=== PATIENT | female | born 1955 | race Caucasian/White ===

== ENCOUNTER 2023-03-07 16:23 | Outpatient (CLI) | payer MEDICARE, MEDICAID, SELFPAY | END 2023-03-07 16:24 | disposition home or self-care (01) | LOC: AMB 03-24 15:39 | PROVIDERS: PCP Family Medicine; Visit Provider Emergency Medicine | DX: F10.129 Alcohol abuse with intoxication, unspecified (principal) | CPT/HCPCS: A0425; A0429 ==

== ENCOUNTER 2023-07-05 12:31 | Outpatient (CLI) | payer MEDICARE, MEDICAID, SELFPAY ==
--- OUTSIDE RECORDS SUMMARY | 2023-07-07 15:32 | XMS_ITS | Clinical Summary ---
Author Name Unknown Organization [place] Address [address] [facility] [place] [address] Care Team Providers Care Human Resources Compensation Analyst Name Role Phone Alek Jones MD Unavailable [phone] Neelima Shukla DO Primary Care Provider [phone] Brayden Du MD Unavailable Allergies Active Allergy Reactions Criticality Noted Date Comments Propoxyphene Napsylate 09/19/2012 Propoxyphene 09/02/2014 Other reaction(s): Seizures Medications Medication Sig Dispensed Refills Start Date End Date Status Multiple Vitamins-Minerals (CENTRUM SILVER PO) Take 1 tablet by mouth daily Active gabapentin (NEURONTIN) 600 MG tabletIndications:S eizure disorder (H),Chronic pain disorder,Adjustment disorder with mixed anxiety and depressed mood Take 600 mg by mouth 3 times daily 60 tablet 0 12/31/2014 Active gabapentin (NEURONTIN) 800 MG tabletIndications:S eizure disorder (H),Chronic pain disorder,Adjustment disorder with mixed anxiety and depressed mood Take 1 tablet (800 mg) by mouth At Bedtime 30 tablet 0 12/31/2014 Active SUMAtriptan (IMITREX) 100 MG tabletIndications:H istory of migraine TAKE 1 TABLET BY MOUTH AT ONSET OF HEADACHE Dr Juan David Garcia DO, neurologist 9 tablet 0 12/31/2014 Active rOPINIRole (REQUIP) 0.5 MG tablet Take 1.5 mg by mouth daily 05/08/2019 Active VITAMIN D PO Take 1,000 Units by mouth daily Active Cyanocobalamin (VITAMIN B-12 PO) Take 1,000 mcg by mouth daily Active phenytoin (DILANTIN) 100 MG capsuleIndications: History of seizures Take 100 mg by mouth 2 times daily Take 1 tablet by mouth in AM, 1 in afternoon at 1700 10/23/2020 Active propranolol ER (INDERAL LA) 80 MG 24 hr capsule Take 80 mg by mouth daily Active nicotine (COMMIT) 2 MG lozengeIndications: Nicotine dependence with nicotine-induced disorder, unspecified nicotine product type Place 1 lozenge (2 mg) inside cheek every hour as needed for smoking cessation 10/28/2020 Active calcium carbonate (TUMS) 500 MG chewable tablet Take 1 tablet (500 mg) by mouth daily 10/28/2020 Active polyethylene glycol (MIRALAX) 17 GM/Dose powderIndications:C onstipation, unspecified constipation type Take 17 g by mouth daily 510 g 10/28/2020 Active Additional Information Patient taking differently:17 g OralDAILY PRN, Reported on 11/03/2020 acetaminophen (TYLENOL) 500 MG tabletIndications:C losed trimalleolar fracture of left ankle, initial encounter Take 2 tablets (1,000 mg) by mouth 3 times daily 10/28/2020 Active rotigotine (NEUPRO) 2 MG/24HR [address] 1 patch onto the skin daily 02/16/2021 Active hydrocortisone, Perianal, (PROCTOZONE-HC) 2.5 % creamIndications:Ex ternal hemorrhoids Place rectally 2 times daily as needed 30 g 1 02/16/2021 Active cyclobenzaprine (FLEXERIL) 5 MG tabletIndications:R ib pain on left side,Thoracic back sprain, initial encounter Take 1-2 tablets (5-10 mg) by mouth 3 times daily as needed for muscle spasms 20 tablet 03/09/2021 Active sertraline (ZOLOFT) 50 MG tabletIndications:G AD (generalized anxiety disorder) Take 1 tablet (50 mg) by mouth daily 90 tablet 06/30/2021 Active cephALEXin (KEFLEX) 500 MG capsule Take 1 capsule (500 mg) by mouth 4 times daily 28 capsule 06/06/2023 Active Active Problems Problem Noted Date Diagnosed [...] Provided: Reviewed chart for advance care plan. Leo Mueller has no plan or code status on file. Discussed available resources and provided with information. Confirmed code status reflects current choices pending further ACP discussions. Confirmed/documented legally designated decision maker(s). 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 Surg in 2000 Last seizure 2009 Pt on dilantin and sees neurology at [facility] History of migraine 09/19/2012 Resolved Problems [...] disorder (H) (Primary Dx) 06/23/2023 Medical Correspondence [facility] [address] [place] [address] Scan, Non-Provider 06/11/2023 7:17 PM CDT - 06/12/2023 11:01 AM CDT Emergency [facility] Emergency Dept [address] [place] [address] Kaushal Mao MD Amdahl, John, MD Goodwin, Shaun M, MD Alcoholic intoxication without complication (H24) Discharge Disposition: Home or Self Care 06/11/2023 Travel 06/08/2023 Telephone [facility] Emergency Dept [address] [place] [address] Adi Edmond RN Results 06/06/2023 10:35 AM CDT - 06/06/2023 7:56 PM CDT Emergency [facility] Emergency Dept [address] [place] [address] Kimmy Cisneros, Fall, initial encounter; Hip pain, [...] Sex Assigned at Female 02/28/2021 1:24 PM LIGHTING EQUIPMENT OPERATOR Gender Identity Female 02/28/2021 1:23 PM LIGHTING EQUIPMENT OPERATOR Sexual Orientation Straight 02/28/2021 1: 20 PM LIGHTING EQUIPMENT OPERATOR Last Filed Vital Signs Vital Sign Reading Time Taken Comments Blood Pressure 128/67 06/12/2023 10:29 AM CDT Pulse 126 06/12/2023 10:15 AM CDT Temperature 36.7 ??C (98 ??F) 06/11/2023 8:37 PM CDT Respiratory Rate 15 06/11/2023 7:45 PM CDT Oxygen Saturation 96% 06/12/2023 10:31 AM CDT Inhaled Oxygen Concentration - - Weight 72.6 kg (160 lb) 03/07/2023 5:06 PM LIGHTING EQUIPMENT OPERATOR Height 162.6 cm (5' 4) 03/07/2023 5:06 PM LIGHTING EQUIPMENT OPERATOR Body Mass Index 27.46 03/07/2023 5:06 PM LIGHTING EQUIPMENT OPERATOR Plan of Treatment Health Maintenance Due [...] 12/09/2017, 06/26 (Declined), 06/01/2011 PHQ-9 08/16/2021 02/16/2021, 10/2020, 04/04/2019, Additional history exists NICOTINE/TOBACCO CESSATION [...] this topic Medical Devices Implanted Type Area Sales Account Specialist Device Identifier Shelf Expiration Date Model / Serial / Lot Imp Scr Syn Lcp Dist 2.7x12mm Self Tap Ss 202.212 - [id number] Implanted:Qty: 1 on 10/24/2020 by Quentin Pritchett MD at [facility] Metallic Hardware/An chor Left: Ankle SYNTHES-STRATEC 202.212 / / [id number] Imp Scr Syn Lcp Dist 2.7x14mm Self Tap Ss 202.214 - [id number] Implanted:Qty: 1 on 10/24/2020 by Quentin Pritchett MD at [facility] Metallic Hardware/An chor Left: Ankle SYNTHES-STRATEC 202.214 / / [id number] Imp Scr Syn Lcp Dist 2.7x16mm Self Tap Ss 202.216 - [id number] Implanted:Qty: 3 on 10/24/2020 by Quentin Pritchett MD at [facility] Metallic Hardware/An chor Left: Ankle SYNTHES-STRATEC 202.216 / / [id number] 21 Imp Scr Syn Cortex 2.7x32mm Self Tap Ss 202.832 - [id number] Implanted:Qty: 1 on 10/24/2020 by Quentin Pritchett MD at [facility] Metallic Hardware/An chor Left: Ankle SYNTHES-STRATEC 202.832 / / [id number] L2021 Imp Scr Syn 3.5x12mm Locking W/Stardrive Ss 212.102 - [id number] Implanted:Qty: 2 on 10/24/2020 by Quentin Pritchett MD at [facility] Metallic Hardware/An chor Left: Ankle SYNTHES-STRATEC 212.102 / / [id number] L2021 Imp Scr Syn Cortex 3.5x16mm Self Tap Ss 204.816 - [id number] Implanted:Qty: 1 on 10/24/2020 by Quentin Pritchett MD at [facility] Metallic Hardware/An chor Left: Ankle SYNTHES-STRATEC 204.816 / / [id number] L2021 Imp Scr Syn Cortex 3.5x28mm Self Tap Ss 204.828 - [id number] Implanted:Qty: 1 on 10/24/2020 by Quentin Pritchett MD at [facility] Metallic Hardware/An chor Left: Ankle SYNTHES-STRATEC 204.828 / / [id number] L2021 Imp Scr Syn Cortex 3.5x38mm Self Tap Ss 204.838 - [id number] Implanted:Qty: 1 on 10/24/2020 by Quentin Pritchett MD at [facility] Metallic Hardware/An chor Left: Ankle SYNTHES-STRATEC 204.838 / / [id number] L2021 Imp Scr Syn Can 4.0x40mm Long Thrd Ss 207.740 - [id number] Implanted:Qty: 1 on 10/24/2020 by Quentin Pritchett MD at [facility] Metallic Hardware/An chor Left: Ankle SYNTHES-STRATEC 207.740 / / [id number] L2021 Imp Wire Margarita 0.045x4 78.2020 - [id number] Implanted:Qty: 1 on 10/24/2020 by Quentin Pritchett MD at [facility] Wire Left: Ankle G SOURCE 78.202 / / 4.0mm Ti Locking Screww/T25 Implanted:Qty: 1 on 01/16/2014 by Bayron Can MD at [facility] Left: Humerus SYNTHES 08/27/2019 04.005.4 44S / / [id number] 4.5mm Ti Multiloc Screw 42mm Implanted:Qty: 1 on 01/16/2014 by Bayron Can MD at [facility] Left: Humerus SYNTHES 03/28/2022 04.019.0 42S / / [id number] 4.5mm Ti Mulitloc Screw 38mm Implanted:Qty: 1 on 01/16/2014 by Bayron Can MD at [facility] Left: Humerus SYNTHES 02/25/2022 04.019.0 38S / / [id number] 4.0mm Ti Locking Screw 24mm Implanted:Qty: 1 on 01/16/2014 by Bayron Can MD at [facility] Left: Humerus SYNTHES 08/26/2022 04.005.4 14S / / [id number] 4.0mm Ti Locking Screw 26mm Implanted:Qty: 1 on 01/16/2014 by Bayron Can MD at [facility] Left: Humerus SYNTHES 12/26/2021 04.005.4 16S / / [id number] Multiloc End Cap Implanted:Qty: 1 on 01/16/2014 by Bayron Can MD at [facility] Left: Humerus SYNTHES 11/26/2022 04.019.0 00S / / [id number] 4.5mmti Multiloc Screw 38mm Implanted:Qty: 1 on 01/16/2014 by Bayron Can MD at [facility] Left: Humerus SYNTHES 02/25/2023 04.019.0 38S / / [id number] 3.5mm Lcp Hook Plate Implanted:Qty: 1 on 10/24/2020 by Quentin Pritchett MD at [facility] Left: Ankle SYNTHES 02.113.1 03S / / [id number] 2.7mm/3.5mm Lcp Posterolateral Distal Fibula Plates Implanted:Qty: 1 on 10/24/2020 by Quentin Pritchett MD at [facility] Left: Ankle SYNTHES 02.112.1 09 / / [id number] 21 Procedures Procedure Name Priority Date/Time Associated [...] METABOLIC PANEL STAT 06/06/2023 11:04 AM CDT LIPID PANEL (BFP) Routine 02/24/2021 3:3 5 PM LIGHTING EQUIPMENT OPERATOR Mixed hyperlipidemia MA DIAGNOSTIC BILATERAL W/ JESSE Routine 12/09/2017 THINPREP PAP RFLX HPV MRNA E6/E7 ([facility]) Routine 03/04/2017 3:13 PM LIGHTING EQUIPMENT OPERATOR Encounter for gynecological examination without abnormal finding HEPATITIS C ANTIBODY Routine 04/07/2016 3:32 PM LIGHTING EQUIPMENT OPERATOR Need for hepatitis C screening test DRUG ABUSE SCREEN 8 URINE (UR) STAT 01/26/2006 2:35 PM LIGHTING EQUIPMENT OPERATOR from Last 3 Months or Most Recently Relevant to Health Maintenance Results * (ABNORMAL) CBC with platelets and [...] Mao MD LAB - BLOOD ORDE ALAN [facility] Organization Address City/State/ZIP Co de Phone Number [facility] LABORAT[facility] [address] Lab (1st floor, no room number) [place] [address], [facility] * (ABNORMAL) Alcohol level blood (06/11/2023 8:53 PM CDT) Only the most recent of2 resultswithin the time period is included. Alcohol ethyl 0.35(HH) <=0.01 g/dL 06/11/2023 9:38 PM CDT [facility] LAB[facility] Blood STRUCTURE OF RIGHT HAND / Unknown Venipuncture / Unknown 06/11/2023 8:53 PM CDT 06/11/2023 9:00 PM CDT Kaushal Mao MD LAB - BLOOD YINKA PHILLIPS [facility] [address] Lab (1st floor, no room number) [place] [address] * (ABNORMAL) Basic metabolic [...] - 5.3 mmol/L 06/11/2023 9:51 PM CDT [facility] LAB[facility] Chloride 96(L) 98 - 107 mmol/L 06/11/2023 9:51 PM CDT [facility] Carbon Dioxide (CO2) 23 22 - 29 mmol/L 06/11/2023 9:51 PM CDT [facility] Anion Gap 22(H) 7 - 15 mmol/L 06/11/2023 9:51 PM CDT [facility] Urea Nitrogen 4.3(L) 8.0 - 23.0 mg/dL 06/11/2023 9:51 PM CDT [facility] Creatinine 0.41(L) 0.51 - 0.95 mg/dL 06/11/2023 9:51 PM CDT [facility] GFR Estimate >90 >60 mL/min/1. 73m2 06/11/2023 9:51 PM CDT [facility] Calcium 8.2(L) 8.8 - 10.2 mg/dL 06/11/2023 9:51 PM CDT LABORATORY Glucose 101(H) 70 - 99 mg/dL 06/11/2023 9:51 PM CDT LABORATORY Blood STRUCTURE OF RIGHT HAND / Unknown Venipuncture / Unknown 06/11/2023 8:53 PM CDT 06/11/2023 9:00 PM CDT Kaushal Mao MD LAB - BLOOD YINKA PHILLIPS LABORATORY [facility] [address] Lab (1st floor, no room number) [place] [address], [facility] * (ABNORMAL) UA with [...] Trace(A) Negative mg/dL 06/06/2023 1:53 PM CDT LABORATORY Specific [place] Urine 1.020 1.003 - 1.035 06/06/2023 1:53 PM CDT LABORATORY Blood Urine Small(A) Negative 06/06/2023 1:53 PM CDT LABORATORY pH Urine 5.0 5.0 - 7.0 06/06/2023 1:53 PM CDT LABORATORY Protein Albumin Urine 30(A) Negative mg/dL 06/06/2023 1:53 PM CDT LABORATORY Urobilinogen Urine Normal Normal, 2.0 mg/dL 06/06/2023 1:53 PM CDT LABORATORY Nitrite Urine Negative Negative 06/06/2023 1:53 PM CDT LABORATORY Leukocyte Esterase Urine Moderate(A) Negative 06/06/2023 [...] PM CDT 06/06/2023 1:42 PM CDT Narrative [facility] LAB[facility]ATORY - 06/06/2023 1:53 PM CDT Urine Culture ordered based on laboratory criteria Kimmy Cisneros DO LAB - URINE ORDERABL ES LABORATORY [facility] Lab [address] [facility] Lab (1st floor, no room number) [place] [address] * (ABNORMAL) Urine Culture (06/06/2023 1:37 [...] coli Cefazolin JANICE <=4 ug/mL: Susceptible Comment:Cefazolin RI C breakpoints are for the treatment of [...] - MICRO GENERAL ORDERABLES UU IDD LABORATORY [facility] Inf. Diseases Diag. Lab [address] [place] [address] * XR Pelvis w Hip Left 1 View (06/06/2023 1:01 PM CDT) Anatomical Region Laterality Modality Abdomen/Pelvis Left Digital Radiogra phy Impressions 06/06/2023 1:16 PM CDT IMPRESSION: No acute fracture or malalignment. Mild degenerative changes throughout the pelvis and lower lumbar spine. Osteopenia. JAZIEL SANDOVAL MD SYSTEM ID: ??[id number] Narrative 06/06/2023 1:16 PM CDT XR PELVIS [...] spine. Osteopenia. JAZIEL SANDOVAL MD SYSTEM ID: [id number] Kimmy Cisneros DO IMG DIAGNOSTIC IMAGI NG [...] aneurysm coiling. NAIMA OCAMPO MD SYSTEM ID: ??[id number] Narrative 06/06/2023 12:41 PM CDT EXAM: CT HEAD W/O CONTRAST ??06/06/2023 12:27 PM HISTORY: ??fall ?? COMPARISON: ??Head CT 07/08/2015 TECHNIQUE: Using multidetector thin collimation helical acquisition technique, axial, coronal and sagittal CT images from the skull base to the vertex were obtained without intravenous contrast. Inspector Eyeglass Frames (topogram) image(s) also obtained and reviewed. Dose [...] the vertex were obtained without intravenous contrast. Inspector Eyeglass Frames (topogram) image(s) also obtained and reviewed. Dose [...] aneurysm coiling. NAIMA OCAMPO MD SYSTEM ID: [id number] iKmmy Cisneros DO IMG CT ORDERABLES * XR [...] ACDF. DIPESH BLACK MD Kimmy Cisneros DO G DIAGNOSTIC IMAGI NG ORDERABLES * US Lower [...] thrombosis. EVER PEDRO MD Kimmy Cisneros DO IMAnibal US ORDERABLES * EKG 12-lead, tracing only (06/06/2023 11:14 AM CDT) Systolic Blood Pressure mmHg RADIOLOGY RESULTS Diastolic Blood Pressure mmHg RADIOLOGY RESULTS Ventricular Rate 131 BPM RAD IOLOGY RESULTS Atrial Rate 133 BPM RADIOLOG Y RESULTS MT Interval 112 ms RADIOLOG Y RESULTS QRS Duration 72 ms RADIOLO GY RESULTS QT 408 ms RADIOLOGY RESULTS QTc 602 ms RADIOLOGY RESULTS P [place] 27 degrees RADIOLOGY RESULTS R AXIS 70 degrees RADIOLOGY RESULTS T [place] 31 degrees RADIOLOGY RESULTS Interpretation ECG Sinus [...] Confirmed by - EMERGENCY ROOM, PHYSICIAN ([id number]), school photograph editor Aureliano Castellanos ([id number]) on 06/06/2023 3:26:20 PM RADIOLOGY RESULTS 06/06/2023 11:1 4 AM CDT 06/06/2023 3:26 PM CDT Kimmy Cisneros DO ECG ORDERABLES RADIOLOGY RESULTS * Extra Green Top ([place] Heparin) ON ICE (06/06/2023 11:04 AM CDT) Hold Specimen [facility] 06/06/2023 12:32 PM CDT [facility] LABORATORY Blood VENOUS LINE / Unknown Venipuncture / Unknown 06/06/2023 11:04 AM CDT 06/06/2023 11:17 AM CDT Kimmy Cisneros DO LAB - BLOOD ORDERABL ES Performing Organization Address City/[facility]/ZIP Co de Phone Number [facility] Lab [address] Lab (1st floor, no room number) [address] * Extra Blood Culture Bottle (06/06/2023 11:04 AM CDT) Hold Specimen [facility] 06/06/2023 12:32 PM CDT [facility] LABORATORY Blood VENOUS LINE / Unknown Venipuncture / Unknown 06/06/2023 11:04 AM CDT 06/06/2023 11:17 AM CDT Kimmy Cisneros DO LAB - BLOOD ORDERABL ES Performing Organization Address [facility]/ZIP Co de Phone Number [facility] Lab [address] Lab (1st floor, no room number) [address] [place] [address] * Extra Red Top Tube (06/06/2023 11:04 AM CDT) Hold Specimen [facility] 06/06/2023 12:32 PM CDT RH LAB[facility]ATORY Blood VENOUS LINE / Unknown Venipuncture / Unknown 06/06/2023 11:04 AM CDT 06/06/2023 11:17 AM CDT Kimmy Cisneros DO LAB - BLOOD ORDERABL ES [facility] [address] Lab (1st floor, no room number) [place] [address] * Extra Blue Top Tube (06/06/2023 11:04 AM CDT) Hold Specimen [facility] 06/06/2023 12:32 PM CDT LABORATORY Blood VENOUS LINE / Unknown Venipuncture / Unknown 06/06/2023 11:04 AM CDT 06/06/2023 11:17 AM CDT Kimmy Cisneros DO LAB - BLOOD ORDERABL ES LABORATORY [facility] [address] Lab (1st floor, no room number) [place] [address] * Troponin T, High Sensitivity (06/06/2023 11:04 AM CDT) [facility] Troponin T, High Sensitivity 12 <=14 ng/L [...] DO LAB - BLOOD ORDERABL ES LABORATORY [facility] [address] Lab (1st floor, no room number) [place] [id number] * Nt probnp inpatient (BNP) (06/06/2023 11:04 AM CDT) [facility] N terminal Pro BNP Inpatient 64 0 [...] - BLOOD ORDERABL ES Performing Organization Address City/[facility]/ZIP Co de Phone Number [facility] Lab [address] Lab (1st floor, no room number) [place] [id number] * Magnesium (06/06/2023 11:04 AM CDT) [facility] Magnesium 1.8 1.7 - 2.3 mg/dL 06/06/2023 12:07 PM CDT LABORATORY Blood VENOUS LINE / Unknown Venipuncture / Unknown 06/06/2023 11:04 AM CDT 06/06/2023 11:17 AM CDT Kimmy Cisneros LAB - BLOOD ORDERABL ES [facility] [address] Lab (1st floor, no room number) [place] [phone] * (ABNORMAL) Comprehensive metabolic [...] - 29 mmol/L 06/06/2023 12:07 PM CDT LABORATORY Anion Gap 17(H) 7 - 15 mmol/L 06/06/2023 12:07 PM CDT LABORATORY Urea Nitrogen 3.6(L) 8.0 - 23.0 mg/dL 06/06/2023 12:07 PM CDT LABORATORY Creatinine 0.47(L) 0.51 - 0.95 mg/dL 06/06/2023 12:07 PM CDT LABORATORY GFR Estimate >90 >60 mL/min/1. 73m2 06/06/2023 12:07 PM CDT LABORATORY Calcium 8.2(L) 8.8 - 10.2 mg/dL 06/06/2023 12:07 PM CDT LABORATORY Chloride 104 98 - 107 mmol/L 06/06/2023 12:07 PM CDT LABORATORY Glucose 109(H) 70 - 99 mg/dL 06/06/2023 12:07 PM CDT LABORATORY Alkaline Phosphatase 218(H) 40 - 150 U/L 06/06/2023 12:07 PM CDT LABORATORY Comment:Reference intervals [...] - 45 U/L 06/06/2023 12:07 PM CDT LABORATORY Comment:Reference intervals [...] CDT 06/06/2023 11:17 AM CDT Kimmy Cisneros LAB - BLOOD ORDERABL ES Performing Organization Address City/[facility]/ZIP Co de Phone Number [facility] Lab [address] Lab (1st floor, no room number) [address] * CK total (06/06/2023 11:04 AM CDT) CK 83 26 - 192 U/L 06/06/2023 1:07 PM CDT RH LABORATORY Blood VENOUS LINE / Unknown Venipuncture / Unknown 06/06/2023 11:04 AM CDT 06/06/2023 11:17 AM CDT Kimmy Cisneros LAB - BLOOD ORDERABL ES [facility] [address] Lab (1st floor, no room number) [address] * (ABNORMAL) Lipid Panel (BFP) (02/24/2021 3:35 PM LIGHTING EQUIPMENT OPERATOR) Cholesterol 307(A) 0 - 199 mg/dL BFP INTERNAL Triglycerides 369(A) 0 - 149 mg/dL B[facility] INTERNAL HDL Cholesterol 108 40 - 150 mg/dL [facility] INTERNAL LDL Cholesterol Direct 125 0 - 130 mg/dL [facility] INTERNAL Cholesterol/HDL Ratio 3 0 - 5 BFP INTERNAL Blood 02/24/2021 3:35 PM LIGHTING EQUIPMENT OPERATOR Alek Jones MD LAB - [facility] BLOOD LABS BFP INTERNAL * MA Diagnostic Bilateral w/Jesse (12/09/2017) MAMMOGRAM Anatomical Region Laterality Modality Breast Bilateral Other Narrative 12/09/2017 [facility] Phone: [phone] * Fax: [phone] [address] [place] [address] Age: 62 Y Dept No.: [id number] LEO MUELLER : 1955 Chart # Gender: F Req. Phys: Alek Jones MD Clinic MRN: Clinic: [facility] Acc#: [id number] Exam: MAMMOGRAM SCREENING JESSE BILATERAL Exam Date: 12/09/2017 SCREENING MAMMOGRAM, BILATERAL, DIGITAL with DIGITAL BREAST TOMOSYNTHESIS, w/CAD - 12/09/2017 3:00 PM. COMPARISON: 06/01/11, 11/27/09 CLINICAL HISTORY: No current breast concerns. Patient reports prior benign biopsies. BREAST DENSITY: Heterogeneously dense, which may obscure small masses. FINDINGS: No concerning findings. Biopsy markers in the right breast. IMPRESSION: BI-RADS CATEGORY: 1 - NEGATIVE. RECOMMENDED FOLLOW-UP: Annual Mammography. Exam results letter mailed to patient. Performed by: NANCY Transcribed By: TISHA on: 12/14/2017 1:56 PM CDT Finalized By: RHINA ZAMUDIO M.D. on: 12/14/2017 1:56 PM CDT Dictated By: RHINA ZAMUDIO M.D. Signed by: DORA Thank You for choosing [facility] Page 1 of 1 Patient Reported IMG MAMMOGRAPHY YINKA PHILLIPS * ThinPrep Pap and HPV (mRNA E6/E7){HPV-REFLEX} ([facility]) (03/04/2017 3:13 PM LIGHTING EQUIPMENT OPERATOR) Clinical History None given [facility] LMP SEE COMMENT [facility] Comment:OVER 8YRS AGO Last Pap Diagnosis 120,817 Q [facility] Prev Bx Dx NONE GIVEN [facility] Source Cervix [facility] Statement of Adequacy SEE COMMENT [facility] Comment: Satisfactory for evaluation. Endocervical/transformation zone component present. Descriptive Diagnosis SEE COMMENT [facility] Comment:Negative for intraep ithelial lesion or malignancy. [employer] Head: SEE COMMENT [facility] Comment: ERP, CT(ASCP) CT Screening location: [address] ??[id number] Cervical swab (specimen) 03/04/2017 3:13 PM LIGHTING EQUIPMENT OPERATOR 03/05/2017 2:58 AM LIGHTING EQUIPMENT OPERATOR Narrative Resulting Agency Comment Performing Organization Information: ? [place] ? [facility] ? [address] [place] [address] ? Lars Calderon M.D. Alek Jones MD LAB - NON-[facility] NON-BLOOD Performing Organization Address [facility] Co de Phone Number [facility] [address] [place] [address] * Hepatits C antibody ([facility]) (04/07/2016 3:32 PM LIGHTING EQUIPMENT OPERATOR) HCV Antibody NON-REACTI VE NON-REACTI VE [facility] SIGNAL TO CUT OFF - [facility] 0.03 <1.00 [facility] Blood specimen (specimen) 04/07/2016 3:32 PM LIGHTING EQUIPMENT OPERATOR 04/08/2016 3:37 AM LIGHTING EQUIPMENT OPERATOR Narrative Resulting Agency Comment Performing Organization Information: ? [place] ? [facility] ? [address] [place] [address] ? Lars Calderon M.D. Alek Jones MD LAB - BLOOD O RDERABLES Performing Organization Address City/[facility]/ZIP Co de Phone Number [facility] [address] [place] [address] * (ABNORMAL) Drug abuse screen 8 urine (UR) (01/26/2006 2:35 PM LIGHTING EQUIPMENT OPERATOR) Amphetamine Qual Urine Negative NEG MISYS Ethanol Qual Urine Negative NEG MISYS Opiates Qualitative Urine Positive(A) NEG MISYS PCP Qual Urine Negative NEG MISYS Benzodiazepine Qual Urine Negative NEG MISYS Barbiturates Qual Urine Negative NEG MISYS Cocaine Qual Urine Negative NEG MISYS Cannabinoids Qual Urine Negative NEG MISYS 01/26/2006 2:35 PM LIGHTING EQUIPMENT OPERATOR 01/26/2006 2:25 PM LIGHTING EQUIPMENT OPERATOR Russell Trinidad MD LAB - URINE ORDERABLES Performing Organization Address City/[facility] [facility] Co de Phone Number MISYS from Last 3 Months or Most Recently Relevant to Health Maintenance Advance Directives For more information, please contact: [phone] * Full Code (Latest Code Status on File) Date Activated Date Inactivated Comments 10/24/2020 5:35 PM 10/27/2020 6:15 PM All basic and advanced life-sustaining interventions are performed as appropriate Question Answer Comments Code status determined by: Discussion with patie nt/ legal decision maker * Full Code Date Activated Date Inactivated Comments 07/08/2015 3:13 PM 10/24/2020 10:14 AM * Full Code Date Activated Date Inactivated Comments 07/30/2014 8:35 PM 08/02/2014 6:38 PM * Full Code Date Activated Date Inactivated Comments 01/16/2014 5:45 PM 01/17/2014 4:33 PM Care Teams Human Resources Compensation Analyst Relationship Specialty [place] [address] [facility] [place] [address] PCP - General Family Medicine 01/12/22 Alek Jones MD [address] [address] Assigned PCP 03/01/21 Brayden Du MD [address] [facility] [id number] [place] [address] Neurology 05/06/22
--- OUTSIDE RECORDS SUMMARY | 2023-07-07 15:32 | XMS_ITS | Clinical Summary ---
Author Name Unknown Organization [address] [facility] [employer] Address [place], [place] [address] Care Team Providers Care Torch Solderer Name Role Phone Neelima Shukla Primary Care Provider Allergies Active Allergy Reactions Criticality Noted Date [...] Motorized Wheelchair. Length of need: 99 months. [facility] 1 Each 3 Active omeprazole (PRILOSEC) 20 [...] of status migrainosus 03/08/2003 Overview: LW Onset: [id number] ; Migraine Without Aura Resolved Problems Problem Noted Date Diagnosed Date Resolved Date Pneumonia due to infectious organism 10/20/2021 01/10/2023 Urinary retention 10/20/2021 05/16/2022 Failure to thrive in adult 10/19/2021 0 05/16/2022 Anorexia 10/19/2021 05/16/2022 Mouth ulcer 10/19/2021 05/16/2022 Thrush 10/19/2021 05/16/2022 Alcohol withdrawal 10/19/2021 3 Hypomagnesemia 10/19/2021 05/16/2022 Hypophosphatemia 10/19/2021 05/16/2022 Starvation ketoacidosis 10/14/202104/28 Metabolic acidosis 10/13/2021 3 Sacral wound 10/13/2021 05/16/2022 High cholesterol 08/30/2013 [...] 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 05/27/2021 Overview: first doretha age 20 Pneumonia of left lower lobe due to infectious organism 01/10/2023 Sepsis 05/16/2022 Dyspnea 05/16/2022 Encounters Date Type Department Care Team Description 07/06/2023 4:00 PM CDT Ancillary Procedure [facility] [address] [place] [address] Arrived 07/05/2023 Patient Outreach [facility] [address] [place] [address] Neelima Shukla, DO Focused Care Management (07/05/23; Generalized anxiety disorder, Mixed dyslipidemia, Normocytic anemia /) 06/29/2023 Refill [facility] [address] [place] [address] Neelima Shukla, Refill Request (Metoprolol Tartrate) 06/29/2023 Refill [facility] [address] [place] [address] Klaus Sandoval MD Refill Request (Phenytoin Extended) 06/28/2023 Telephone [facility] [address] [place] [address] Neelima Shukla, DO Home Care 06/20/2023 Patient Outreach [facility] Care Management - Care Management Navigation/[facility] [address] [place] [address] Marcio Portillo [facility] (Care Guide Annual Medicare Wellness Visit outreach/) 06/17/2023 Telephone [facility] [address] [place] [address] Neelima Shukla DO Prior Authorization (suvorexant (Belsomra) 20 mg tablet Approved 03/28/2023 - 06/16/2024 [id number]) 05/20/2023 Patient Outreach [facility] Care Management - Advanced Care Team [address] [place] [address] Garima Nathan Medication Management (R/S NO SHOW CMR) 05/13/2023 Patient Outreach [facility] [address] [place] [address] Dallas Blanco, JoanneD Pharmacist Medication Management (Reschedule comprehensive medication review ) 05/02/2023 Travel 04/29/2023 Patient Outreach [facility] - Advanced Care Team [address] [place] [address] Garima Nathan Medication Management (CMR PROVIDER REFERRAL - covered) 04/27/2023 Orders Only [facility] [address] [place] [address] Neelima Shukla DO <No scans attached> 04/24/2023 Refill [facility] [id number] [place] [address] Neelima Shukla DO Refill Request (Vitamin D-3) 04/22/2023 Orders Only [facility] [id number] [place] [address] Neelima Shukla DO <No scans attached> 04/22/2023 Telephone [facility] [address] [place] [address] Neelima Shukla DO Form (PHYSICIAN ORDER) 04/21/2023 2:00 PM HEADSTART TEACHER Telemedicine [facility] [address] [place] [address] Jeramie Dsouza, Follow Up; Telehealth from Last 3 Months Immunizations Name Administration [...] Comments Blood Pressure 114/78 03/23/2023 2:10 PM HEADSTART TEACHER Pulse 83 03/23/2023 2:10 PM HEADSTART TEACHER Temperature 36.7 ??C (98 ??F) 01/14/2023 7:47 AM CDT Respiratory Rate 16 01/14/2023 7:47 AM CDT Oxygen Saturation 96% 03/23/2023 2:10 PM HEADSTART TEACHER Inhaled Oxygen Concentration - - Weight 72.6 kg (160 lb) 01/13/2023 9:36 AM CDT Height 162.6 cm (5' 4) 01/13/2023 9:36 AM CDT Body Mass Index 27.46 01/13/2023 9:36 AM CDT Plan of Treatment Upcoming Encounters Date Type Department Care Team (Late st Contact Info) Description 07/15/2023 10:00 AM CDT Appointment [facility] [address] [place] [address] Health Maintenance Due Date Last Done Comments Fecal testing sDNA-FIT (Duvall guard) for age 45-75 2002 Mammogram for age 45-75 2002 DEXA/DXA scan for age 65+ 2022 Tetanus booster 09/19/2022 09/19/2012, 06/0 08/2007, 01/04/[address] (for lung CA) ag e 50-80 10/14/2022 10/14/2021 COVID-19 vaccine series (24 season) 2022 02/10/2022, 10/28/2021, 02/23/2021, Additional history [...] Procedure Name Priority Date/Time Associated Diagnosis Comments ECHO TTE COMPLETE WO CONTRAST Routine 07/06/2023 4:30 PM CDT Tachycardia Hypotension LC HCV ANTIBODY RFX TO QUANT PCR Routine 05/13/2022 3:36 PM HEADSTART TEACHER Need for hepatitis C screening test LC LIPID PANEL AND CHOL/HDL RATIO Routine 05/13/2022 3:36 PM HEADSTART TEACHER Screening cholesterol level CT CHEST ABDOMEN PELVIS W Routine 10/14/2021 1:13 PM CDT from Last 3 Months or Most Recently Relevant to Health Maintenance Results * ECHO TTE COMPLETE WO CONTRAST (07/06/2023 4:30 PM CDT) AORTIC VALVE MEAN PG 7 mmHg EJECTION FRACTION 77 % PEAK TR VELOCITY 2.3 m/s LVEDD 4.0 cm Anatomical Region Laterality Modality Ultrasound 07/06/2023 3:59 PM CDT Narrative 07/06/2023 5:12 PM CDT ECHOCARDIOGRAM LEO MUELLER ? Accession#: ?? [id number] : ?1955 68 years Study Date: ?? 07/06/2023 3:59:59 PM Gender: F ?BP: ? 91/52 mmHg Height: 160.00 cm ?BSA: ?1.92 m? ? ? Weight: 89.00 kg ? Tech: ? MCK ? Referring MD: ALEXA VEGA Site: ? [facility] Reading Location: [facility] Patient Location: Outpatient. Procedure: 2D, Color Doppler and Spectral Doppler. Indication for study: Tachycardia, hypotension Cardiac Rhythm: Regular.Study quality: Fair. Final Impressions: 1. Normal left ventricular size, normal wall thickness, hyperdynamic global systolic function, calculated EF of 77 %. 2. Right ventricular cavity size is normal, global systolic RV function is normal. 3. No significant valve disease detected. Comparison There are no prior studies on this patient for comparison purposes. Chamber Sizes and Function Normal left ventricular size, normal wall thickness, hyperdynamic global systolic function, calculated EF of 77 %. Left atrial size is normal. Right ventricular cavity size is normal, global systolic RV function is normal. RV wall thickness is normal. The right atrium is normal. Right atrial volume index is 19 ml/m? ? ?. Right atrial area is 15 cm? ? ?. The pulmonary artery is not well visualized. The sinus of Valsalva is normal sized. The ascending aorta is normal sized. Valves, RV Pressures and Diastolic Function The aortic valve is normal in structure and trileaflet, no stenosis and no regurgitation. The mitral valve is normal in structure, no mitral regurgitation. Normal diastolic function. The tricuspid valve is normal in structure. Tricuspid regurgitation is regurgitation is not evident. The tricuspid regurgitant velocity is 2.3 m/s, the estimated right ventricular systolic pressure is 21 mmHg plus right atrial pressure. The pulmonic valve is normal. Trace pulmonary regurgitation. Masses, Effusion, Shunts There is no pericardial effusion. The inferior vena cava is not well visualized, respiratory size variation not well visualized. No left to right shunting was detected by limited color flow Doppler interrogation of the interatrial septum. MEASUREMENTS AND CALCULATIONS 2-D Measurements and LV Function: LVID (d) 4.0 cm Planimetered EF 77 % LVID (s) 2.0 cm LV FS% (2D) ? 49 % IVS (d) ??1.0 cm LVOT diameter ?? 2.0 cm LVPW (d) 0.8 cm HR ?91 bpm Ao Sinus 3.4 cm LA Vol index ?17 ml/m2 Asc Ao ?? 3.1 cm RA Vol index ?19 ml/m2 LA ? 3.4 cm RA area ? 15 cm?RV Max 4C (d) ?? 3.5 cm Diastology: Mitral ?Tissue Doppler E Peak 1.2 m/s ??e', Septum ? 0.11 m/s A Peak 0.8 m/s ??e', Lateral ?0.11 m/s E/A ?1.4 ?E/e' Average ?? 10.69 DT ? 130 msec Aortic Valve: Vmax ? 1.8 m/s ??LORNA (V) ?? 2.31 cm? ? ? VTI ?0.36 m ?? LORNA (I) ?? 2.43 cm? ? ? LVOT V max 1.3 m/s ??Max PG ?13 mmHg LVOT VTI ?? 0.28 m ?? Mean PG ?? 7 mmHg SV ? 88 ml ?Dim Index 0.77 SV index ?? 46 ml/m? ? ? CO ?8.0 l/min ?CI ?4.2 l/min/m? ? ? Mitral Valve: MVA ?5.8 cm? ? ? MV P 1/2 38 msec Tricuspid Valve and estimated PA pressures: TR Vmax 2.3 m/s TAPSE 1.7 cm TR maxG 21 mmHg . This study was interpreted by an [facility] accredited facility. CC: HIM (med records) [facility], Med/Surg - IP [facility]. ??Final ?? Procedure Note Kyler Campos MD - 07/06/2023 ECHOCARDIOGRAM LEO MUELLER : 1955 68 years Study Date: 07/06/2023 3:59:59 PM Gender: F BP: 91/52 mmHg Height: 160.00 cm BSA: 1.92 m? ? ? Weight: 89.00 kg Tech: RORO Referring MD: ALEXA VEGA Site: [facility] Reading Location: [facility] Patient Location: Outpatient. Procedure: 2D, Color Doppler and Spectral Doppler. Indication for study: Tachycardia, hypotension Cardiac Rhythm: Regular.Study quality: Fair. Final Impressions: 1. Normal left ventricular size, normal wall thickness, hyperdynamicglobal systolic function, calculated EF of 77 %. 2. Right ventricular cavity size is normal, global systolic RV functionis normal. 3. No significant valve disease detected. Comparison There are no prior studies on this patient for comparison purposes. Chamber Sizes and Function Normal left ventricular size, normal wall thickness, hyperdynamic globalsystolic function, calculated EF of 77 %. Left atrial size is normal.Right ventricular cavity size is normal, global systolic RV function isnormal. RV wall thickness is normal. The right atrium is normal. Rightatrial volume index is 19 ml/m? ? ?. Right atrial area is 15 cm? ? ?. Thepulmonary artery is not well visualized. The sinus of Valsalva is normalsized. The ascending aorta is normal sized. Valves, RV Pressures and Diastolic Function The aortic valve is normal in structure and trileaflet, no stenosis and noregurgitation. The mitral valve is normal in structure, no mitralregurgitation. Normal diastolic function. The tricuspid valve is normal instructure. Tricuspid regurgitation is regurgitation is not evident. Thetricuspid regurgitant velocity is 2.3 m/s, the estimated right ventricularsystolic pressure is 21 mmHg plus right atrial pressure. The pulmonicvalve is normal. Trace pulmonary regurgitation. Masses, Effusion, Shunts There is no pericardial effusion. The inferior vena cava is not wellvisualized, respiratory size variation not well visualized. No left toright shunting was detected by limited color flow Doppler interrogation ofthe interatrial septum. MEASUREMENTS AND CALCULATIONS 2-D Measurements and LV Function: LVID (d) 4.0 cm Planimetered EF 77 % LVID (s) 2.0 cm LV FS% (2D) 49 % IVS (d) 1.0 cm LVOT diameter 2.0 cm LVPW (d) 0.8 cm HR 91 bpm Ao Sinus 3.4 cm LA Vol index 17 ml/m2 Asc Ao 3.1 cm RA Vol index 19 ml/m2 LA 3.4 cm RA area 15 cm? ? ? RV Max 4C (d) 3.5 cm Diastology: Mitral Tissue Doppler E Peak 1.2 m/s e', Septum 0.11 m/s A Peak 0.8 m/s e', Lateral 0.11 m/s E/A 1.4 E/e' Average 10.69 DT 130 msec Aortic Valve: Vmax 1.8 m/s LORNA (V) 2.31 cm? ? ? VTI 0.36 m LORNA (I) 2.43 cm? ? ? LVOT V max 1.3 m/s Max PG 13 mmHg LVOT VTI 0.28 m Mean PG 7 mmHg SV 88 ml Dim Index 0.77 SV index 46 ml/m? ? ? CO 8.0 l/min CI 4.2 l/min/m? ? ? Mitral Valve: MVA 5.8 cm? ? ? MV P 1/2 38 msec Tricuspid Valve and estimated PA pressures: TR Vmax 2.3 m/s TAPSE 1.7 cm TR maxG 21 mmHg . This study was interpreted by an [facility] accredited facility. CC: HIM (med records) [facility], Med/Surg - IP [facility]. Final Alexa Vega MD ECHO ORD * (ABNORMAL) LC LIPID PANEL AND CHOL/HDL RATIO (05/13/2022 3:36 PM HEADSTART TEACHER) [facility] Cholesterol, Total 256(H) 100 - 199 mg/dL 05/15/2022 11:[address] [facility] ([facility]) Triglycerides 248(H) 0 - 149 mg/dL 05/15/2022 11:[address] [facility] ([facility]) HDL Cholesterol 87 >39 mg/dL 11:[address] [facility] ([facility]) VLDL Cholesterol Sourav 43(H) 5 - 40 mg/dL 05/15/2022 11:[address] [facility] ([facility]) LDL Chol Calc (NIH) 126(H) 0 - 99 mg/dL 05/15/2022 11:[address] [facility] ([facility]) T. Chol/HDL Ratio 2.9 0.0 - 4.4 ratio 05/15/2022 11:[address] [facility] ([facility]) Comment: ?T. Chol/HDL Ratio ?Men ??Women ?1/2 Avg.Risk ??3.4 ?3.3 ?Avg.Risk ??5.0 ?4.4 ? 2X Avg.Risk ??9.6 ?7.1 ? 3X Avg.Risk 23.4 ?? 11.0 Blood BLOOD SPECIMEN / Unknown Venipuncture / Unknown 05/13/2022 3:36 PM HEADSTART TEACHER 05/13/2022 3:36 PM HEADSTART TEACHER Narrative [facility] ([facility]) - 05/15/2022 11:08 AM HEADSTART TEACHER Performed at: ??01 - [facility] [employer] [place], [place] ??[id number] Fund Manager: Ramses Stanford MD, Phone: ??[phone] Neelima Shukla DO SEND OUTS [facility] ([facility]) [address] [place] [address], * LC HCV ANTIBODY RFX TO QUANT PCR (05/13/2022 3:36 PM HEADSTART TEACHER) HCV Ab Non Reactive Non Reactive 05/15/2022 10:06 PM HEADSTART TEACHER [facility] ([facility]) Blood BLOOD SPECIMEN / Unknown Venipuncture / Unknown 05/13/2022 3:36 PM HEADSTART TEACHER 05/13/2022 3:36 PM HEADSTART TEACHER Narrative [facility] ([facility]) - 05/15/2022 10:06 PM HEADSTART TEACHER Performed at: ??01 - [facility] [employer] [place], [place] ??[id number] Fund Manager: Ramses Stanford MD, Phone: ??[phone] Neelima Shukla [facility] (CET) [address] [place] [address], [place] * CT CHEST ABDOMEN PELVIS W (10/14/2021 1:13 PM CDT) Anatomical Region Laterality Modality Abdomen, Pelvis, AORTA, LIVER, SPLEEN, CHEST Computed Tomography 10/14/2021 1:13 PM CDT Impressions 10/14/2021 2:07 PM CDT Hepatic steatosis. Chest, abdomen and pelvis otherwise unremarkable. Specifically, no abnormal masses or adenopathy identified. Narrative 10/14/2021 2:07 PM CDT For Patients: As a result of the Cures Act, medical imaging exams and procedure reports are released immediately into your electronic medical record. You may view this report before your referring provider. If you have questions, please contact your health care provider. EXAM: CT CHEST ABDOMEN PELVIS W LOCATION: [facility] DATE/TIME: 10/14/2021 1:13 [...] EXAM: CT CHEST ABDOMEN PELVIS W LOCATION: [facility] DATE/TIME: 10/14/2021 1:13 [...] Code Status Discussion: Reviewed Preferences Care Teams Torch Solderer Relationship Specialty [place] [address] [place] [address] PCP - General Family Practice 02/22/22
--- OUTSIDE RECORDS SUMMARY | 2023-07-07 15:33 | XMS_ITS | Encounter Summary ---
Author Name Unknown Organization [facility] Address [facility] [place] [address] Care Team Providers Care Air Surveillance Operator Name Role Phone Jeramie Sterling MD Primary Care Provider Elodia Rose Oliveira Marcie VENEER MARKER Unavailable [phone] Estela Dacosta Primary Care Provi nnamdi Kelley Love MD Primary Care Provider [phone] Alek Jones MD Primary Care Provide r Alek Jones MD Unavailable [phone] Alek Jones MD Unavailable [phone] Alexa Simon PA-C Unavailable + [phone] Alexa Simon PA-C Unavailable + [phone] Alek Jones MD Unavailable [phone] [place] Unavailable Alexa Simon PA-C Unavailable + [phone] Alek Jones MD Unavailable [phone] Neelima Shukla DO Primary Care Provider [phone] Brayden Du MD Unavailable Reason for Visit * Reason Comments Medication Refill Encounter Details Date Type Department Care Team (Late st Contact Info) Description 02/17/2015 Refill [facility] [address] [place] [address] [address] [place] [address] Jeramie Sterling MD XXXX RESIGNED/INACTIVE XXXX Medication Refill Social History Tobacco Use Types Packs/Day Years Used Date Smoking Tobacco: Former Smokeless Tobacco: Never Alcohol Use Standard Drinks/Week Comments No 0 (1 standard drink = 0.6 oz pur e alcohol) Sex and Gender Information Value Date Recorded Sex Assigned at Female 02/28/2021 1:24 PM DAIRY TESTER Gender Identity Female 02/28/2021 1:23 PM DAIRY TESTER Sexual Orientation Straight 02/28/2021 1: 20 PM DAIRY TESTER documented as of this encounter Miscellaneous Notes [...] to see her? Please fax or adviseAna [phone] (home) none (work) Y TESTER documented in this encounter Plan of Treatment Not on file documented as of this encounter Visit Diagnoses Diagnosis Internal hemorrhoids- Primary Internal hemorrhoids without mention of complication documented in this encounter Additional Health Concerns Infection Onset Date Last Indicated Resolved Time 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/07/2020 11/07/2020 11/09/2020 1:31 AM CDT documented as of this encounter Care Teams Air Surveillance Operator Relationship Specialty Start Date End Date Jeramie Sterling MD PCP - General Family Practice 07/24/14 11/09/15 Estela Dacosta PA PCP - General Family Practice 11/10/15 12/17/15 Kelley Love MD [address] , [address] [address] PCP - General Family Practice 12/18/15 03/17/16 Alek Jones MD [address], [address] [address] PCP - General Family Practice 03/18/16 01/11/22 [place] [address] [place] [address] PCP - General Family Medicine 01/12/22 Rose Pelletier, [facility] Top Steep Tender 09/19/14 07/10/20 Alek Jones MD [address], [address] [address] Assigned PCP 04/08/19 05/24/20 Alek Jones MD [address], [address] [address] Assigned PCP 12/25/17 03/31/19 Alxea Simon PA-C [address], [address] [address] Assigned PCP 04/01/19 04/07/19 Alexa Simon PA-C [address], [address] [address] Assigned PCP 05/25/20 06/07/20 Alek Jones MD [address], [address] [address] Assigned PCP 06/08/20 02/14/21 Center([facility]), [facility] [address] [place] [phone] Custodial Facility 10/27/20 11/14/20 Alexa Simon PA-C [address] [address] [place] [address] Assigned PCP 02/15/21 02/28/21 Alek Jones MD [address] , [address] [address] Assigned PCP 03/01/21 Brayden Du MD [address] [place] [address] [id number] [place] [address] MD Reynolds 05/06/22 documented as of this encounter
--- OUTSIDE RECORDS SUMMARY | 2023-07-07 15:33 | XMS_ITS | Encounter Summary ---
Author Name Unknown Organization [employer] Address [address] [place] [address]. [place] [address] Care Team Providers Care Torch Cutter Name Role Phone Rose Pelletier TELEMARKETING SUPERVISOR Unavailable [phone] Alek Jones MD Primary Care Provide r Alek Jones MD Unavailable [phone] Alek Jones MD Unavailable [phone] Alexa Simon PA-C Unavailable + [phone] Alexa Simon PA-C Unavailable Alek Jones MD Unavailable [phone] [place] Unavailable Alexa Simon PA-C Unavailable + [phone] Alek Jones MD Unavailable [phone] Neelima Shukla DO Primary Care Provider [phone] Brayden Du MD Unavailable Reason for Visit * Reason Comments Medication Refill Encounter Details Date Type Department Care Team (Late st Contact Info) Description 10/11/2016 Refill [facility] [address] [place] [address] [address] [place] [address] Alek Jones MD [address] [place] [address], [address] [id number] Medication Refill Social History Tobacco Use Types Packs/Day Years Used Date Smoking Tobacco: Former Smokeless Tobacco: Never Alcohol Use Standard Drinks/Week Comments No 0 (1 standard drink = 0.6 oz pur e alcohol) Sex and Gender Information Value Date Recorded Sex Assigned at Female 02/28/2021 1:24 PM STARBUCKS CLERK Gender Identity Female 02/28/2021 1:23 PM STARBUCKS CLERK Sexual Orientation Straight 02/28/2021 1: 20 PM STARBUCKS CLERK documented as of this encounter Miscellaneous Notes * Telephone Encounter - Brooklyn Celestin - 10/11/2016 11:14 AM CDT Message left for Pt that a 30 day Rx refill was authorized, and pt should schedule a non fasting OV. * Telephone Encounter - Ana Mueller MA - 10/11/2016 8:31 AM CDT [facility] in [facility] Ce[facility] Pt is due for ov NON fasting Jayna [phone] (home) documented in this encounter Plan of [...] Depression Total Score: 13 017 7:16 AM STARBUCKS CLERK documented as of this encounter Care Teams Torch Cutter Relationship Specialty Start Date End Date Alek Jones MD [address], [id number] [place] [address] PCP - General Family Practice 03/18/16 01/11/22 [place] [address] [place] [address] PCP - General Family Medicine 01/12/22 Rose Pelletier, TELEMARKETING SUPERVISOR Tennis Net Maker 09/19/14 07/10/20 Alek Jones MD [address], [id number] [place] [address] Assigned PCP 04/08/19 05/24/20 Alek Jones MD [address], [address] [address] Assigned PCP 12/25/17 03/31/19 Alexa Simon PA-C [address], [address] [place] [address] Assigned PCP 04/01/19 04/07/19 Alexa Simon PA-C [address], [address] [address] Assigned PCP 05/25/20 06/07/20 Alek Jones MD [address], [address] [address] Assigned PCP 06/08/20 02/14/21 [place]([facility]), [address] [phone] [facility] 10/27/20 11/14/20 Alexa Simon PA-C [address], [address] [place] [address] Assigned PCP 02/15/21 02/28/21 Alek Jones MD [address], [address] [address] Assigned PCP 03/01/21 Brayden Du MD [address] [facility] [id number] [place] [address] Neurology 05/06/22 documented as of this encounter
--- OUTSIDE RECORDS SUMMARY | 2023-07-07 15:33 | XMS_ITS | Referral Summary ---
Author Name Unknown Organization [facility] Address [address] [place] [address]. [place] [address] Care Team Providers Care Bacteriologist Pharmaceutical Name Role Phone Alek Jones MD Unavailable Neelima Shukla DO Primary Care Provider [phone] Brayden Du MD Unavailable Encounters Date Type Department Care Team Description 07/01/2023 Transcribe Orders GENERIC EXTERNAL DATA DEPARTMENT Provider, Generic External Data Alcohol use, unspecified with other alcohol-induced disorder (H) (Primary Dx) 06/23/2023 Medical Correspondence [facility] [address] [place] [phone] Scan, Non-Provider 06/11/2023 7:17 PM CDT - 06/12/2023 11:01 AM CDT Emergency [facility] Emergency Dept [address] [place] [phone] Kaushal Mao MD AmdIsma posey MD Goodwin, Shaun M, MD Alcoholic intoxication without complication (H24) Discharge Disposition: Home or Self Care 06/11/2023 Travel 06/08/2023 Telephone [facility] Emergency Dept [address] [place] [phone] Adi Edmond RN Results 06/06/2023 10:35 AM CDT - 06/06/2023 7:56 PM CDT Emergency [facility] Emergency Dept [address] [place] [phone] Kimmy Cisneros, Fall, initial encounter; Hip pain, [...] Reviewed chart for advance care plan. Leo Gonsalez Ervin has no plan or code status on file. Discussed available resources and provided with information. Confirmed code status reflects current choices pending further ACP discussions. Confirmed/documented legally designated decision maker(s). 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 Last seizure 2008 Pt on dilantin and sees neurology at [facility] History of migraine 09/19/2012 Resolved Problems [...] Sex Assigned at Female 02/28/2021 1:24 PM CORPORATE TAX PREPARER Gender Identity Female 02/28/2021 1:23 PM CORPORATE TAX PREPARER Sexual Orientation Straight 02/28/2021 1: 20 PM CORPORATE TAX PREPARER Last Filed Vital Signs Vital Sign Reading Time Taken Comments Blood Pressure 128/67 06/12/2023 10:29 AM CDT Pulse 126 06/12/2023 10:15 AM CDT Temperature 36.7 ??C (98 ??F) 06/11/2023 8:37 PM CDT Respiratory Rate 15 06/11/2023 7:45 PM CDT Oxygen Saturation 96% 06/12/2023 10:31 AM CDT Inhaled Oxygen Concentration - - Weight 72.6 kg (160 lb) 03/07/2023 5:06 PM CORPORATE TAX PREPARER Height 162.6 cm (5' 4) 03/07/2023 5:06 PM CORPORATE TAX PREPARER Body Mass Index 27.46 03/07/2023 5:06 PM CORPORATE TAX PREPARER Plan of Treatment Not on file Medical Devices Implanted Type Area Bushel Worker Device Identifier Shelf Expiration Date Model / Serial / Lot Imp Scr Syn Lcp Dist 2.7x12mm Self Tap Ss 202.212 - [id number] Implanted:Qty: 1 on 10/24/2020 by Quentin Pritchett MD at [facility] Metallic Hardware/An chor Left: Ankle SYNTHES-STRATEC 202.212 / / [id number] Imp Scr Syn Lcp Dist 2.7x14mm Self Tap Ss 202.214 - [id number] Implanted:Qty: 1 on 10/24/2020 by Quentin Pritchett MD at [facility] Metallic Hardware/An chor Left: Ankle SYNTHES-STRATEC 202.214 / / [id number] 21 Imp Scr Syn Lcp Dist 2.7x16mm Self Tap Ss 202.216 - [id number] Implanted:Qty: 3 on 10/24/2020 by Quentin Pritchett MD at [facility] Metallic Hardware/An chor Left: Ankle SYNTHES-STRATEC 202.216 / / [id number] 21 Imp Scr Syn Cortex 2.7x32mm Self Tap Ss 202.832 - [id number] Implanted:Qty: 1 on 10/24/2020 by Quentin Pritchett MD at [facility] Metallic Hardware/An chor Left: Ankle SYNTHES-STRATEC 202.832 / / [id number] L2021 Imp Scr Syn 3.5x12mm Locking W/Stardrive Ss 212.102 - [id number] Implanted:Qty: 2 on 10/24/2020 by Quentin Pritchett MD at [facility] Metallic Hardware/An chor Left: Ankle SYNTHES-STRATEC 212.102 / / [id number] L2021 Imp Scr Syn Cortex 3.5x16mm Self Tap Ss 204.816 - [id number] Implanted:Qty: 1 on 10/24/2020 by Quentin Pritchett MD at [facility] Metallic Hardware/An chor Left: Ankle SYNTHES-STRATEC 204.816 / / [id number] L2021 Imp Scr Syn Cortex 3.5x28mm Self Tap Ss 204.828 - [id number] Implanted:Qty: 1 on 10/24/2020 by Quentin Pritchett MD at [facility] Metallic Hardware/An chor Left: Ankle SYNTHES-STRATEC 204.828 / / [id number] L2021 Imp Scr Syn Cortex 3.5x38mm Self Tap Ss 204.838 - [id number] Implanted:Qty: 1 on 10/24/2020 by Quentin Pritchett MD at [facility] Metallic Hardware/An chor Left: Ankle SYNTHES-STRATEC 204.838 / / [id number] L2021 Imp Scr Syn Can 4.0x40mm Long Thrd Ss 207.740 - [id number] Implanted:Qty: 1 on 10/24/2020 by Quentin Pritchett MD at [facility] Metallic Hardware/An chor Left: Ankle SYNTHES-STRATEC 207.740 / / [id number] L2021 Imp Wire Margarita 0.045x4 78.2019 - [id number] Implanted:Qty: 1 on 10/24/2020 by Quentin Pritchett MD at [facility] Wire Left: Ankle G SOURCE 78.202 / / 4.0mm Ti Locking Screww/T25 Implanted:Qty: 1 on 01/16/2014 by Bayron Can MD at [facility] Left: Humerus SYNTHES 08/27/2019 04.005.4 44S / / [id number] 4.5mm Ti Multiloc Screw 42mm Implanted:Qty: 1 on 01/16/2014 by Bayron Can MD at [facility] Left: Humerus SYNTHES 03/28/2022 04.019.0 42S / / [id number] 4.5mm Ti Mulitloc Screw 38mm Implanted:Qty: 1 on 01/16/2014 by Bayron Can MD at [facility] Left: Humerus SYNTHES 02/25/2022 04.019.0 38S / / [id number] 4.0mm Ti Locking Screw 24mm Implanted:Qty: 1 on 01/16/2014 by Bayron Can MD at [facility] Left: Humerus SYNTHES 08/26/2022 04.005.4 14S / / [id number] 4.0mm Ti Locking Screw 26mm Implanted:Qty: 1 on 01/16/2014 by Bayron Can MD at [facility] Left: Humerus SYNTHES 12/26/2021 04.005.4 16S / / [id number] Ti Multiloc End Cap Implanted:Qty: 1 on 01/16/2014 by Bayron Can MD at [facility] Left: Humerus SYNTHES 11/26/2022 04.019.0 00S / / [id number] 4.5mmti Multiloc Screw 38mm Implanted:Qty: 1 on 01/16/2014 by Bayron Can MD at [facility] Left: Humerus SYNTHES 02/25/2023 04.019.0 38S / / [id number] 3.5mm Lcp Hook Plate Implanted:Qty: 1 on 10/24/2020 by Quentin Pritchett MD at [facility] Left: Ankle SYNTHES 02.113.1 8001 [id number] 2.7mm/3.5mm Lcp Posterolateral Distal Fibula Plates Implanted:Qty: 1 on 10/24/2020 by Quentin Pritchett MD at [facility] Left: Ankle SYNTHES 02.112.1 8001 [id number] Procedures Procedure Name Priority Date/Time Associated [...] PANEL (BFP) Routine 02/24/2021 3:3 5 PM CORPORATE TAX PREPARER Mixed hyperlipidemia MA DIAGNOSTIC BILATERAL W/ JESSE Routine 12/09/2017 THINPREP PAP RFLX HPV MRNA E6/E7 ([facility]) Routine 03/04/2017 3:13 PM CORPORATE TAX PREPARER Encounter for gynecological examination without abnormal finding HEPATITIS C ANTIBODY Routine 04/07/2016 3:32 PM CORPORATE TAX PREPARER Need for hepatitis C screening test DRUG ABUSE SCREEN 8 URINE (UR) STAT 01/26/2006 2:35 PM CORPORATE TAX PREPARER from Last 3 Months or Most Recently [...] Mao MD LAB - BLOOD ORDE [facility] Lab [address] Lab (1st floor, no room number) [place] [address] * (ABNORMAL) Alcohol level blood (06/11/2023 8:53 PM CDT) Only the most recent of2 resultswithin the time period is included. Alcohol ethyl 0.35(HH) <=0.01 g/dL 06/11/2023 9:38 PM CDT [facility] Blood STRUCTURE OF RIGHT HAND / Unknown Venipuncture / Unknown 06/11/2023 8:53 PM CDT 06/11/2023 9:00 PM CDT Kaushal Mao MD LAB - BLOOD [facility]DE [facility] [address] Lab (1st floor, no room number) [place] [address], [facility] * (ABNORMAL) Basic metabolic panel (BMP) (06/11/2023 8:53 PM CDT) [facility] Signature Sodium 141 135 - 145 mmol/L 06/11/2023 [...] MD LAB - BLOOD YINKA PHILLIPS [facility] Lab [address] Lab (1st floor, no room number) [place] [address], [facility] * (ABNORMAL) UA with Microscopic reflex to [...] 06/06/2023 1:53 PM CDT RH [facility] [place] Urine 1.020 1.003 - 1.035 06/06/2023 1:53 [...] DO LAB - URINE ORDERABL ES LABORATORY [facility] Lab [address] [facility] Lab (1st floor, no room number) [place] [address], [facility] * (ABNORMAL) Urine Culture (06/06/2023 1:37 PM [...] coli Cefazolin JANICE <=4 ug/mL: Susceptible Comment:Cefazolin [place] C breakpoints are for the treatment of [...] - MICRO GENERAL ORDERABLES UU IDD LABORATORY [facility] Inf. Diseases Diag. Lab [address] [facility], [address] [place] [address], [facility] * XR Pelvis w Hip Left 1 View (06/06/2023 1:01 PM CDT) Anatomical Region Laterality Modality Abdomen/Pelvis Left Digital Radiogra phy Impressions 06/06/2023 1:16 PM CDT IMPRESSION: No acute fracture or malalignment. Mild degenerative changes throughout the pelvis and lower lumbar spine. Osteopenia. JAZIEL SANDOVAL MD SYSTEM ID: ??[id number] Narrative 06/06/2023 1:16 PM CDT XR PELVIS [...] spine. Osteopenia. JAZIEL SANDOVAL MD SYSTEM ID: [id number] Kimmy Cisneros DO IMG DIAGNOSTIC IMAGI NG [...] aneurysm coiling. NAIMA OCAMPO MD SYSTEM ID: ??[id number] Narrative 06/06/2023 12:41 PM CDT EXAM: CT HEAD W/O CONTRAST ??06/06/2023 12:27 PM HISTORY: ??fall ?? COMPARISON: ??Head CT 07/08/2015 TECHNIQUE: Using multidetector thin collimation helical acquisition technique, axial, coronal and sagittal CT images from the skull base to the vertex were obtained without intravenous contrast. Wharf Labourer (topogram) image(s) also obtained and reviewed. Dose [...] the vertex were obtained without intravenous contrast. Wharf Labourer (topogram) image(s) also obtained and reviewed. Dose [...] aneurysm coiling. NAIMA OCAMPO MD SYSTEM ID: [id number] Kimmy Cisneros DO IMG CT ORDERABLES * [...] Atrial Rate 133 BPM RADIOLOG Y RESULTS [place] Interval 112 ms RADIOLOG Y RESULTS QRS Duration 72 ms RADIOLO GY RESULTS QT 408 ms RADIOLOGY RESULTS QTc 602 ms RADIOLOGY RESULTS P [place] 27 degrees RADIOLOGY RESULTS R AXIS 70 degrees RADIOLOGY RESULTS T [place] 31 degrees RADIOLOGY RESULTS Interpretation ECG Sinus [...] Confirmed by - EMERGENCY ROOM, PHYSICIAN ([id number]), editorial writer Aureliano Castellanos ([id number]) on 06/06/2023 3:26:20 PM RADIOLOGY RESULTS 06/06/2023 11:1 4 AM CDT 06/06/2023 3:26 PM CDT Kimmy Cisneros DO ECG ORDERABLES RADIOLOGY RESULTS * Extra Green Top ([place] Liga Heparin) ON ICE (06/06/2023 11:04 AM CDT) Hold Specimen JIC 06/06/2023 12:32 PM CDT LABORATORY Blood VENOUS LINE / Unknown Venipuncture / Unknown 06/06/2023 11:04 AM CDT 06/06/2023 11:17 AM CDT Kimmy Cisneros DO LAB - BLOOD ORDERABL ES LABORATORY [facility] Lab [address] Lab (1st floor, no room number) [place] [address] * Extra Blood Culture Bottle (06/06/2023 11:04 AM CDT) Hold Specimen [facility] 06/06/2023 12:32 PM CDT RH LABORATORY Blood VENOUS LINE / Unknown Venipuncture / Unknown 06/06/2023 11:04 AM CDT 06/06/2023 11:17 AM CDT Kimmy Cisneros DO LAB - BLOOD ORDERABL ES [facility] Lab [address] Lab (1st floor, no room number) [place] [address] * Extra Red Top Tube (06/06/2023 11:04 AM CDT) Hold Specimen [facility] 06/06/2023 12:32 PM CDT RH LABORATORY Blood VENOUS LINE / Unknown Venipuncture / Unknown 06/06/2023 11:04 AM CDT 06/06/2023 11:17 AM CDT Kimmy Cisneros DO LAB - BLOOD ORDERABL ES Performing Organization Address City/[facility]/ZIP Co de Phone Number [facility] Lab [address] Lab (1st floor, no room number) [place] [address], [facility] * Extra Blue Top Tube (06/06/2023 11:04 AM CDT) Hold Specimen [facility] 06/06/2023 12:32 PM CDT RH LABORATORY Blood VENOUS LINE / Unknown Venipuncture / Unknown 06/06/2023 11:04 AM CDT 06/06/2023 11:17 AM CDT Kimmy Cisneros DO LAB - BLOOD ORDERABL ES [facility] Lab [address] Lab (1st floor, no room number) [place] [address] * Troponin T, High Sensitivity (06/06/2023 11:04 AM CDT) [facility] Troponin T, High Sensitivity 12 <=14 ng/L [...] Cisneros DO LAB - BLOOD ORDERABL ES [facility] [address] [facility] (1[facility] floor, no room number) [place] [address] * Nt probnp inpatient (BNP) (06/06/2023 11:04 AM CDT) [facility] N terminal Pro BNP Inpatient 64 0 [...] Cisneros DO LAB - BLOOD ORDERABL ES [facility] Lab [address] Lab (1st floor, no room number) [address] * Magnesium (06/06/2023 11:04 AM CDT) Magnesium 1.8 1.7 - 2.3 mg/dL 06/06/2023 12:07 PM CDT LABORATORY Blood VENOUS LINE / Unknown Venipuncture / Unknown 06/06/2023 11:04 AM CDT 06/06/2023 11:17 AM CDT Kimmy Cisneros DO LAB - BLOOD ORDERABL ES Performing Organization Address [facility] Co de Phone Number [facility] Lab [address] Lab (1st floor, no room number) [address] * (ABNORMAL) Comprehensive metabolic panel (06/06/2023 11:04 [...] [facility] [address] Lab (1st floor, no room number) [place] [id number] [place] [address] * CK total (06/06/2023 11:04 AM CDT) CK 83 26 - 192 U/L 06/06/2023 1:07 PM CDT LABORATORY Blood VENOUS LINE / Unknown Venipuncture / Unknown 06/06/2023 11:04 AM CDT 06/06/2023 11:17 AM CDT Kimmy Cisneros DO LAB - BLOOD ORDERABL ES Performing Organization Address City/[facility]/ZIP Co de Phone Number [facility] Lab [address] Lab (1st floor, no room number) [address] * (ABNORMAL) Lipid Panel (BFP) (02/24/2021 3:35 PM CORPORATE TAX PREPARER) Cholesterol 307(A) 0 - 199 mg/dL BFP INTERNAL Triglycerides 369(A) 0 - 149 mg/dL B[facility] INTERNAL HDL Cholesterol 108 40 - 150 mg/dL [facility] INTERNAL LDL Cholesterol Direct 125 0 - 130 mg/dL [facility] INTERNAL Cholesterol/HDL Ratio 3 0 - 5 BFP INTERNAL Blood 02/24/2021 3:35 PM CORPORATE TAX PREPARER Alek Jones MD LAB - NON-[facility] BLOOD LABS BFP INTERNAL * MA Diagnostic Bilateral w/Jesse (12/09/2017) MAMMOGRAM Anatomical Region Laterality Modality Breast Bilateral Other Narrative 12/09/2017 [facility] - [place] Phone: [phone] * Fax: [phone] [address] [place] [address] Age: 62 Y Dept No.: [id number] LEO MUELLER : 1955 Chart # Gender: F Req. Phys: Alek Jones MD Clinic MRN: Clinic: [facility] Acc#: [id number] Exam: MAMMOGRAM SCREENING JESSE BILATERAL Exam Date: [...] Signed by: DORA Thank You for choosing [facility] Page 1 of 1 Patient Reported IMG MAMMOGRAPHY ORDE RABZAID * ThinPrep Pap and HPV (mRNA E6/E7){HPV-REFLEX} ([facility]) (03/04/2017 3:13 PM CORPORATE TAX PREPARER) Clinical History None given [facility] LMP SEE COMMENT [facility] Comment:OVER 8YRS AGO Last Pap Diagnosis 120,817 Q [facility] Prev Bx Dx NONE GIVEN [facility] Source Cervix [facility] Statement of Adequacy SEE COMMENT [facility] Comment: Satisfactory for evaluation. Endocervical/transformation zone component present. Descriptive Diagnosis SEE COMMENT [facility] Comment:Negative for intraep ithelial lesion or malignancy. Consulting Solution Manager: SEE COMMENT [facility] Comment: ERP, CT(ASCP) CT Screening location: [address] ??[address] Cervical swab (specimen) 03/04/2017 3:13 PM CORPORATE TAX PREPARER 03/05/2017 2:58 AM CORPORATE TAX PREPARER Narrative Resulting Agency Comment Performing Organization Information: ? [place] ? [facility] ? [address] [place] [address] ? Lars Calderon M.D. Alek Jones MD LAB - NON-AGUSTIN KER NON-BLOOD Performing Organization Address City/[facility] Co de Phone Number [facility] [address] [place] [address] * Hepatits C antibody ([facility]) (04/07/2016 3:32 PM CORPORATE TAX PREPARER) Pathologist [facility] HCV Antibody NON-REACTI VE NON-REACTI VE [facility] SIGNAL TO CUT OFF - [facility] 0.03 <1.00 [facility] Blood specimen (specimen) 04/07/2016 3:32 PM CORPORATE TAX PREPARER 04/08/2016 3:37 AM CORPORATE TAX PREPARER Narrative Resulting Agency Comment Performing Organization Information: ? [place] ? [facility] ? [address] [place] [address] ? Lars Calderon M.D. Alek Jones MD LAB - BLOOD O RDERABLES Performing Organization Address City/[facility]/ZIP Co de Phone Number [facility] [address] [place] [address] * (ABNORMAL) Drug abuse screen 8 urine (UR) (01/26/2006 2:35 PM CORPORATE TAX PREPARER) Amphetamine Qual Urine Negative NEG MISYS Ethanol Qual Urine Negative NEG MISYS Opiates Qualitative Urine Positive(A) NEG MISYS PCP Qual Urine Negative NEG MISYS Benzodiazepine Qual Urine Negative NEG MISYS Barbiturates Qual Urine Negative NEG MISYS Cocaine Qual Urine Negative NEG MISYS Cannabinoids Qual Urine Negative NEG MISYS 01/26/2006 2:35 PM CORPORATE TAX PREPARER 01/26/2006 2:25 PM CORPORATE TAX PREPARER Russell Trinidad MD LAB - URINE ORDERABLES MISYS from Last 3 Months or Most Recently Relevant to Health Maintenance Advance Directives For more information, please contact: [phone] * Full Code (Latest Code Status on [...] 5:45 PM 01/17/2014 4:33 PM Care Teams Bacteriologist Pharmaceutical Relationship Specialty [place] [address] [place] [address] PCP - General Family Medicine 01/12/22 Alek Jones MD [address] , [address] [place] [address] Assigned PCP 03/01/21 Brayden Du MD [address] [facility] [id number] [place], [place] [address] Neurology 05/06/22
--- OUTSIDE RECORDS SUMMARY | 2023-07-07 15:33 | XMS_ITS | Encounter Summary ---
Author Name Unknown Organization [place] Address Critical access hospital0 [facility] [place] [address] Care Team Providers Care Insights Strategist Name Role Phone Alek Jones MD Unavailable [phone] Neelima Shukla DO Primary Care Provider [phone] Brayden Du MD Unavailable Reason for Visit * Reason Onset Date Comments Results 06/08/2023 Encounter Details Date Type Department Care Team (Late st Contact Info) Description 06/08/2023 Telephone [facility] Emergency Dept [address] [place] [address] Adi Edmond, FILIPPO Results Social History Tobacco [...] Sex Assigned at Female 02/28/2021 1:24 PM TRAVELER CHANGER Gender Identity Female 02/28/2021 1:23 PM TRAVELER CHANGER Sexual Orientation Straight 02/28/2021 1: 20 PM TRAVELER CHANGER documented as of this encounter Miscellaneous Notes * Telephone Encounter - Adi Edmond RN - 06/08/2023 9:18 AM CDT Images from the original note were not included. [facility] Reason for call: Lab Result Notification Lab Result (including Rx patient on, if applicable). If culture, copy of lab report at bottom. Lab Result: Final Urine Culture Report on 06/07/23 [facility] Emergency Dept discharge antibiotic prescribed: Cephalexin (Keflex) 500 mg capsule, 1 capsule (500 mg) by mouth 4 times daily for 7 days. Date of Rx (if applicable): 06/06/23 #1. Bacteria, 50,000 - 100,000 CFU/ML Escherichia coli is SUSCEPTIBLE to Antibiotic. No change in treatment per [facility] ED lab result Urine Culture protocol. Creatinine [...] Total Score: 9 02/18/20 21 7:30 AM TRAVELER CHANGER documented as of this encounter Care Teams Insights Strategist Relationship Specialty [place] [address] [place] [address] PCP - General Family Medicine 01/12/22 Alek Jones MD [address], [id number] [place] [address] Assigned PCP 03/01/21 Brayden Du MD [address] [facility] [address] Neurology 05/06/22 documented as of this encounter
--- OUTSIDE RECORDS SUMMARY | 2023-07-07 15:33 | XMS_ITS | Encounter Summary ---
Author Name Unknown Organization [place] Address [address] [place] [address]. [place] [address] Care Team Providers Care Associate Professor Physician Name Role Phone Rose Pelletier ROTARY DRILLER Unavailable [phone] Alek Jones MD Primary Care Provide r Alek Jones MD Unavailable [phone] Alek Jones MD Unavailable [phone] Alexa Simon PA-C Unavailable + [phone] Alexa Simon PA-C Unavailable + [phone] Alek Jones MD Unavailable [phone] [place] Unavailable Alexa Simon PA-C Unavailable + [phone] Alek Jones MD Unavailable [phone] Neelima Shukla DO Primary Care Provider [phone] Brayden Du MD Unavailable Encounter Details Date Type Department Care Team (Late st Contact Info) Description 12/19/2017 [facility] Medical Advice [facility] [address] [place] [address] Ana Mueller MA Social History Tobacco Use Types Packs/Day Years Used Date Smoking Tobacco: Former Smokeless Tobacco: Never Alcohol Use Standard Drinks/Week Comments No 0 (1 standard drink = 0.6 oz pur e alcohol) Sex and Gender Information Value Date Recorded Sex Assigned at Female 02/28/2021 1:24 PM SILVICULTURE FORESTER Gender Identity Female 02/28/2021 1:23 PM SILVICULTURE FORESTER Sexual Orientation Straight 02/28/2021 1: 20 PM SILVICULTURE FORESTER documented as of this encounter Plan of Treatment Not on file documented as of this encounter Visit Diagnoses Not on filedocumented in this encounter Additional Health Concerns Infection Onset Date Last Indicated Resolved Time 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/07/2020 11/07/2020 11/09/2020 1:31 AM CDT Assessment Noted Time PHQ-9 Depression Total Score: 5 07/15/19 18 7:37 AM CDT documented as of this encounter Care Teams Associate Professor Physician Relationship Specialty Start Date End Date Alek Jones MD [address], [address] [address] PCP - General Family Practice 03/18/16 01/11/22 [place] [address] [place] [address] PCP - General Family Medicine 01/12/22 Rose Pelletier, [facility] Gas Well Pumper 09/19/14 07/10/20 Alek Jones MD [address], [address] [address] Assigned PCP 04/08/19 05/24/20 Alek Jones MD [address] , [address] [address] Assigned PCP 12/25/17 03/31/19 Alexa Simon PA-C [address], [address] [address] Assigned PCP 04/01/19 04/07/19 Alexa Simon PA-C [address] , [address] [address] Assigned PCP 05/25/20 06/07/20 Alek Jones MD [address] , [address] [address] Assigned PCP 06/08/20 02/14/21 [place]([facility]), [address] [phone] Senior Living Facility 10/27/20 11/14/20 Alexa Simon PA-C [address] , [address] [address] Assigned PCP 02/15/21 02/28/21 Alek Jones MD [address] , [address] [address] Assigned PCP 03/01/21 Brayden Du MD [address] [place] [address] [id number] [place] [address] MD [place] 05/06/22 documented as of this encounter
--- OUTSIDE RECORDS SUMMARY | 2023-07-07 15:33 | XMS_ITS | Encounter Summary ---
Author Name Unknown Organization [place] Address [facility] [place] [address] Care Team Providers Care Patient Resource Specialist Name Role Phone Alek Jones MD Unavailable [phone] Neelima Shukla DO Primary Care Provider [phone] Brayden Du MD Unavailable Reason for Visit * Reason Comments Fall Sled out of her WC Encounter Details Date Type Department Care Team (Late st Contact Info) Description 06/06/2023 10:35 AM CDT - 06/06/2023 7:56 PM CDT Emergency [facility] Emergency Dept [address] [place] [address] Kimmy Cisneros DO [facility] [address] [place] [address] Fall, initial encounter; Hip pain, left; Urinary [...] Sex Assigned at Female 02/28/2021 1:24 PM CATALYST OPERATOR Gender Identity Female 02/28/2021 1:23 PM CATALYST OPERATOR Sexual Orientation Straight 02/28/2021 1: 20 PM CATALYST OPERATOR documented as of this encounter Last Filed [...] through Care Everywhere. * Alcohol Intoxication: Acute (Haitian) * Joint Pain (Haitian) * UTI (Urinary Tract Infection): Female (Haitian) documented in this encounter Medications at Time of Discharge Medication Sig Dispensed Refills Start Date End Date acetaminophen (TYLENOL) 500 MG tabletIndications:Close d trimalleolar fracture of left ankle, initial encounter Take 2 tablets (1,000 mg) by mouth 3 times daily 10/28/2020 calcium carbonate (TUMS) 500 MG chewable tablet Take 1 tablet (500 mg) by mouth daily 10/28/2020 cephALEXin (KEFLEX) 500 MG capsule Take 1 capsule (500 mg) by mouth 4 times daily 28 capsule 06/06/2023 Cyanocobalamin (VITAMIN B-12 PO) Take 1,000 mcg by mouth daily cyclobenzaprine (FLEXERIL) 5 MG tabletIndications:Rib pain on left side,Thoracic back sprain, initial encounter Take 1-2 tablets (5-10 mg) by mouth 3 times daily as needed for muscle spasms 20 tablet 03/09/2021 gabapentin (NEURONTIN) 600 MG tabletIndications:Seizu re [...] 0 12/31/2014 hydrocortisone, Perianal, (PROCTOZONE-HC) 2.5 % creamIndications:Injection Operator al hemorrhoids Place rectally 2 times daily as needed 30 g 1 02/16/2021 Multiple Vitamins-Minerals (CENTRUM SILVER PO) Take 1 tablet by mouth daily nicotine (COMMIT) 2 MG lozengeIndications:Pantera elva dependence with nicotine-induced disorder, unspecified nicotine product type Place 1 lozenge (2 mg) inside cheek every hour as needed for smoking cessation 10/28/2020 phenytoin (DILANTIN) 100 MG capsuleIndications:Hist ory of seizures Take 100 mg by mouth 2 times daily Take 1 tablet by mouth in AM, 1 in afternoon at 1700 10/23/2020 polyethylene glycol (MIRALAX) 17 GM/Dose powderIndications:Const ipation, unspecified constipation type Take 17 g by mouth daily 510 g 10/28/2020 propranolol ER (INDERAL LA) 80 MG 24 hr capsule Take 80 mg by mouth daily rOPINIRole (REQUIP) 0.5 MG tablet Take 1.5 mg by mouth daily 05/08/2019 rotigotine (NEUPRO) 2 MG/24HR [address] 1 patch onto the skin daily 02/16/2021 sertraline (ZOLOFT) 50 MG tabletIndications:USAMA (generalized anxiety disorder) Take 1 tablet (50 mg) by mouth daily 90 tablet 06/30/2021 SUMAtriptan (IMITREX) 100 MG tabletIndications:Histo ry of migraine TAKE 1 TABLET BY MOUTH AT ONSET OF HEADACHE Dr Juan David Garcia DO, neurologist 9 tablet 0 12/31/2014 VITAMIN D PO Take 1,000 Units by mouth daily documented as of this encounter ED Notes * Gebrewold, Kvng, RN - 06/06/2023 10:42 AM CDT Here from independent living as she sled out of her WC about 2 hours ago and called for assistance.Left sided weakness from a brain surgery in 2000, progressively worse per pt. Receives [employer] servicesTuesday-, says she does drink alcohol last [...] age undetermined Abnormal ECG Rate 131 bpm. MD interval 112 ms. QRS duration 72 ms. QT/QTc 408/602 ms. P-R-T axes 27 70 31. Imaging: XR Pelvis w Hip Left 1 View Final Result IMPRESSION: No acute fracture or malalignment. Mild degenerative changes throughout the pelvis and lower lumbar spine. Osteopenia. JAZIEL SANDOVAL MD SYSTEM ID: [id number] Head CT w/o contrast Final Result IMPRESSION: 1. No acute intracranial pathology. 2. 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 NAIMA OCAMPO MD SYSTEM ID: [id number] XR Chest 2 Views Preliminary Result IMPRESSION: [...] Urine Negative Ketones Urine Trace (*) Specific [place] Urine 1.020 Blood Urine Small (*) pH [...] to care for self she has a [employer] that comes 4 days a week. She [...] The patient was discharged. Impression & Plan [facility] Diagnoses: None Medical Decision Makin-year-old female history [...] Qty: 28 capsule, Refills: 0 Scribe Disclosure: Lukas Nesbitt, am serving as a scribe at 10:48 [...] coli Cefazolin JANICE <=4 ug/mL: Susceptible Comment:Cefazolin NC C breakpoints are for the treatment of [...] - MICRO GENERAL ORDERABLES [facility] Inf. Diseases Diag. Lab [address] [facility], Room [address] [place], [place] [id number] * (ABNORMAL) UA with Microscopic reflex [...] 06/06/2023 1:53 PM CDT [facility] LABORATORY Specific [place] Urine 1.020 1.003 - 1.035 06/06/2023 1:53 [...] DO LAB - URINE ORDERABL ES LABORATORY [facility] Acute Care Lab [address] [facility] Lab (1st floor, no room number) [place] [address] * XR Pelvis w Hip Left 1 View (06/06/2023 1:01 PM CDT) Anatomical Region Laterality Modality Abdomen/Pelvis Left Digital Radiogra phy Impressions 06/06/2023 1:16 PM CDT IMPRESSION: No acute fracture or malalignment. Mild degenerative changes throughout the pelvis and lower lumbar spine. Osteopenia. JAZIEL SANDOVAL MD SYSTEM ID: ??[id number] Narrative 06/06/2023 1:16 PM CDT XR PELVIS [...] spine. Osteopenia. JAZIEL SANDOVAL MD SYSTEM ID: [id number] Kimmy Cisneros DO IMG DIAGNOSTIC IMAGI NG [...] aneurysm coiling. NAIMA OCAMPO MD SYSTEM ID: ??[id number] Narrative 06/06/2023 12:41 PM CDT EXAM: CT HEAD W/O CONTRAST ??06/06/2023 12:27 PM HISTORY: ??fall ?? COMPARISON: ??Head CT 07/08/2015 TECHNIQUE: Using multidetector thin collimation helical acquisition technique, axial, coronal and sagittal CT images from the skull base to the vertex were obtained without intravenous contrast. Log Hauler (topogram) image(s) also obtained and reviewed. Dose [...] the vertex were obtained without intravenous contrast. Log Hauler (topogram) image(s) also obtained and reviewed. Dose [...] aneurysm coiling. NAIMA OCAMPO MD SYSTEM ID: [id number] [facility] CT ORDERABLES * XR Chest 2 Views [...] normal limits. No pleural effusions. ACDF. DIPESH BALCK MD Kimmy Cisneros DO IMG DIAGNOSTIC IMAGI [...] deep venous thrombosis. EVER PEDRO MD Kimmy Greenan DO IMG US ORDERABLES * EKG 12-lead, tracing only (06/06/2023 11:14 AM CDT) Systolic Blood Pressure mmHg RADIOLOGY RESULTS Diastolic Blood Pressure mmHg RADIOLOGY RESULTS Ventricular Rate 131 BPM RAD IOLOGY RESULTS Atrial Rate 133 BPM RADIOLOG Y RESULTS MD Interval 112 ms RADIOLOG Y RESULTS QRS Duration 72 ms RADIOLO GY RESULTS QT 408 ms RADIOLOGY RESULTS QTc 602 ms RADIOLOGY RESULTS P [place] 27 degrees RADIOLOGY RESULTS R AXIS 70 degrees RADIOLOGY RESULTS T [place] 31 degrees RADIOLOGY RESULTS Interpretation ECG Sinus [...] by - EMERGENCY ROOM, PHYSICIAN ([id number]), editorial cartoonist Aureliano Castellanos ([id number]) on 06/06/2023 3:26:20 PM RADIOLOGY RESULTS 06/06/2023 11:1 4 AM CDT 06/06/2023 3:26 PM CDT Kimmy Blayneguzman GREEN ECG ORDERABLES RADIOLOGY RESULTS * CK total (06/06/2023 11:04 AM CDT) CK 83 26 - 192 U/L 06/06/2023 1:07 PM CDT RH LABORATORY Blood VENOUS LINE / Unknown Venipuncture / Unknown 06/06/2023 11:04 AM CDT 06/06/2023 11:17 AM CDT Kimmy Cisneros DO LAB - BLOOD ORDERABL ES Performing Organization Address City/[facility]/ZIP Co de Phone Number [facility] Acute Care Lab [address] Lab (1st floor, no room number) [place] [address] * Extra Blood Culture Bottle (06/06/2023 11:04 AM CDT) Hold Specimen JIC 06/06/2023 12:32 PM CDT LABORATORY Blood VENOUS LINE / Unknown Venipuncture / Unknown 06/06/2023 11:04 AM CDT 06/06/2023 11:17 AM CDT Kimmy Cisneros DO LAB - BLOOD ORDERABL ES [facility] Acute Care Lab [address] Lab (1st floor, no room number) [place] [address], [facility] * Extra Green Top ([place] Heparin) ON ICE (06/06/2023 11:04 AM CDT) Hold Specimen [facility] 06/06/2023 12:32 PM CDT RH LABORATORY Blood VENOUS LINE / Unknown Venipuncture / Unknown 06/06/2023 11:04 AM CDT 06/06/2023 11:17 AM CDT Kimmy Cisneros DO LAB - BLOOD ORDERABL ES Performing Organization Address City/[facility]/ZIP Co de Phone Number [facility] Lab [address] Lab (1st floor, no room number) [place] [address] * Extra Red Top Tube (06/06/2023 11:04 AM CDT) Hold Specimen [facility] 06/06/2023 12:32 PM CDT RH LABORATORY Blood VENOUS LINE / Unknown Venipuncture / Unknown 06/06/2023 11:04 AM CDT 06/06/2023 11:17 AM CDT Kimmy Cisneros DO LAB - BLOOD ORDERABL ES Performing Organization Address [facility]/ZIP Co de Phone Number [facility] Care Lab [address] Lab (1st floor, no room number) [place] [address], [facility] * Extra Blue Top Tube (06/06/2023 11:04 AM CDT) Hold Specimen [facility] 06/06/2023 12:32 PM CDT RH LABORATORY Blood VENOUS LINE / Unknown Venipuncture / Unknown 06/06/2023 11:04 AM CDT 06/06/2023 11:17 AM CDT Kimmy Cisneros DO LAB - BLOOD ORDERABL ES [facility] Acute Care Lab [address] Lab (1st floor, no room number) [place] [address], [facility] * (ABNORMAL) CBC with platelets and differential [...] LAB - BLOOD ORDERABL ES RH LABORATORY [facility] Acute Care Lab [address] Lab (1st floor, no room number) [place] [address], [facility] [phone] * Nt probnp inpatient (BNP) (06/06/2023 11:04 AM CDT) [facility] Signature N terminal Pro BNP Inpatient 64 0 [...] Cisneros DO LAB - BLOOD ORDERABL ES [facility] Acute Care Lab [address] Lab (1st floor, no room number) [place] [id number] * Troponin T, High Sensitivity (06/06/2023 [...] Cisneros DO LAB - BLOOD ORDERABL ES [facility] Acute Care Lab [address] Lab (1st floor, no room number) [place] [address], [facility] * (ABNORMAL) Ethyl Alcohol Level (06/06/2023 11:04 AM CDT) Alcohol ethyl 0.10(H) <=0.01 g/dL 06/06/2023 12:07 PM CDT LABORATORY Blood VENOUS LINE / Unknown Venipuncture / Unknown 06/06/2023 11:04 AM CDT 06/06/2023 11:17 AM CDT Kimmy Cisneros DO LAB - BLOOD ORDERABL ES LABORATORY [facility] Care Lab [address] Lab (1st floor, no room number) [place] [address] * Magnesium (06/06/2023 11:04 AM CDT) Magnesium 1.8 1.7 - 2.3 mg/dL 06/06/2023 12:07 PM CDT LABORATORY Blood VENOUS LINE / Unknown Venipuncture / Unknown 06/06/2023 11:04 AM CDT 06/06/2023 11:17 AM CDT Kimmy Cisneros DO LAB - BLOOD ORDERABL ES Performing Organization Address City/[facility]/ZIP Co de Phone Number LABORATORY [facility] Lab [address] Lab (1st floor, no room number) [place] [address] * (ABNORMAL) Comprehensive metabolic panel (06/06/2023 11:04 [...] Kimmy Cisneros LAB - BLOOD ORDERABL ES [facility] Acute Care Lab [address] [facility] Lab (1st floor, no room number) [place] [address], [facility] documented in this encounter Visit Diagnoses Diagnosis [...] this section may contain times in both CATALYST OPERATOR and CDT. Scheduled Medication Order 06/04/2023 06/05/2023 [...] Total Score: 9 02/18/20 21 7:30 AM CATALYST OPERATOR documented as of this encounter Care Teams Patient Resource Specialist Relationship Specialty Start [place] [address] [place] [address] PCP - General Family Medicine 01/12/22 Alek Jones MD [address] , [id number] [place] [address] Assigned PCP 03/01/21 Brayden Du MD [address] [facility] [id number] [place] [address] Neurology 05/06/22 documented as of this encounter
--- OUTSIDE RECORDS SUMMARY | 2023-07-07 15:33 | XMS_ITS | Encounter Summary ---
Author Name Unknown Organization [place] Address [address] [place] [address]. [place] [address] Care Team Providers Care Leg Man Name Role Phone Rose Pelletier TOY ELECTRIC TRAIN REPAIRER Unavailable [phone] Alek Jones MD Primary Care Provide r Alek Jones MD Unavailable [phone] Alek Jones MD Unavailable [phone] Alexa Simon PA-C Unavailable + [phone] Alexa Simon PA-C Unavailable + [phone] Alek Jones MD Unavailable [phone] [place]([facility]), [facility] Unavailable Alexa Simon PA-C Unavailable + [phone] Alek Jones MD Unavailable [phone] Neelima Shukla DO Primary Care Provider [phone] Brayden Du MD Unavailable Encounter Details Date Type Department Care Team (Late st Contact Info) Description 11/10/2016 MyC Medical Advice [facility] [address] [place] [address] Ana Mueller MA Social History Tobacco Use Types Packs/Day Years Used Date Smoking Tobacco: Former Smokeless Tobacco: Never Alcohol Use Standard Drinks/Week Comments No 0 (1 standard drink = 0.6 oz pur e alcohol) Sex and Gender Information Value Date Recorded Sex Assigned at Female 02/28/2021 1:24 PM CENTRIFUGAL WAX MOLDER Gender Identity Female 02/28/2021 1:23 PM CENTRIFUGAL WAX MOLDER Sexual Orientation Straight 02/28/2021 1: 20 PM CENTRIFUGAL WAX MOLDER documented as of this encounter Plan of Treatment Not on file documented as of this encounter Visit Diagnoses Not on filedocumented in this encounter Additional Health Concerns Infection Onset Date Last Indicated Resolved Time 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/07/2020 11/07/2020 11/09/2020 1:31 AM CDT Assessment Noted Time PHQ-9 Depression Total Score: 13 017 7:16 AM CENTRIFUGAL WAX MOLDER documented as of this encounter Care Teams Leg Man Relationship Specialty Start Date End Date Alek Jones MD [address] , [address] [address] PCP - General Family Practice 03/18/16 01/11/22 [place] [address] [place] [address] PCP - General Family Medicine 01/12/22 Rose Pelletier, [facility] Back Tufter 09/19/14 07/10/20 Alek Jones MD [address] , [address] [address] Assigned PCP 04/08/19 05/24/20 Alek Jones MD [address] , [address] [address] Assigned PCP 12/25/17 03/31/19 Alexa Simon PA-C [address] , [address] [address] Assigned PCP 04/01/19 04/07/19 Alexa Simon PA-C [address], [address] [address] Assigned PCP 05/25/20 06/07/20 Alek Jones MD [address], [address] [address] Assigned PCP 06/08/20 02/14/21 [place]([facility]), [address] [id number] Alf Facility 10/27/20 11/14/20 Alexa Simon PA-C [address], [address] [address] Assigned PCP 02/15/21 02/28/21 Alek Jones MD [address], [address] [address] Assigned PCP 03/01/21 Brayden Du MD [address] [place] [address] [id number] [place] [address] MD Reynolds 05/06/22 documented as of this encounter
--- OUTSIDE RECORDS SUMMARY | 2023-07-07 15:33 | XMS_ITS | Encounter Summary ---
Author Name Unknown Organization [place] Address [address] [facility] [place] [address] Care Team Providers Care Senior Account Clerk Name Role Phone Alek Jones MD Primary Care Provide r Alek Jones MD Unavailable [phone] [place]([facility] Unavailable Alexa Simon PA-C Unavailable + [phone] Alek Jones MD Unavailable [phone] Neelima Shukla DO Primary Care Provider [phone] Brayden Du MD Unavailable Encounter Details Date [...] Sex Assigned at Female 02/28/2021 1:24 PM DEMAND PLANNING ANALYST Gender Identity Female 02/28/2021 1:23 PM DEMAND PLANNING ANALYST Sexual Orientation Straight 02/28/2021 1: 20 PM DEMAND PLANNING ANALYST documented as of this encounter Plan of Treatment Not on file documented as of this encounter Visit Diagnoses Not on filedocumented in this encounter Additional Health Concerns Infection Onset Date Last Indicated Resolved Time 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/07/2020 11/07/2020 11/09/2020 1:31 AM CDT Assessment Noted Time PHQ-9 Depression Total Score: 11 021 3:32 PM DEMAND PLANNING ANALYST documented as of this encounter Care Teams Senior Account Clerk Relationship Specialty Start Date End Date Alek Jones MD [address], [address] [address] PCP - General Family Practice 03/18/16 01/11/22 [place] [address] [address] [place] [address] PCP - General Family Medicine 01/12/22 Alek Jones MD [address] , [address] [address] Assigned PCP 06/08/20 02/14/21 [place]([facility])[address] [address] [facility] 10/27/20 11/14/20 Alexa Simon PA-C [address], [address] [address] Assigned PCP 02/15/21 02/28/21 Alek Jones MD [address], [address] [address] Assigned PCP 03/01/21 ManBrayden mancuso MD [address] [facility] [id number] [place] [address] Neurology 05/06/22 documented as of this encounter
--- OUTSIDE RECORDS SUMMARY | 2023-07-07 15:33 | XMS_ITS | Encounter Summary ---
Author Name Unknown Organization [place] Address [facility] [place] [address] Care Team Providers Care Records Officer Name Role Phone Alek Jones MD Unavailable [phone] Neelima Shukla DO Primary Care Provider [phone] Brayden Du MD Unavailable Encounter Details Date Type Department Care Team (Late st Contact Info) Description 06/23/[address] [facility] [address] [place] [address] Scan, Non-Provider Social History Tobacco [...] Sex Assigned at Female 02/28/2021 1:24 PM SPICE FUMIGATOR Gender Identity Female 02/28/2021 1:23 PM SPICE FUMIGATOR Sexual Orientation Straight 02/28/2021 1: 20 PM SPICE FUMIGATOR documented as of this encounter Plan of Treatment Not on file documented as of this encounter Visit Diagnoses Not on filedocumented in this encounter Additional Health Concerns Assessment Noted Time PHQ-9 Depression Total Score: 9 02/18/20 21 7:30 AM SPICE FUMIGATOR documented as of this encounter Care Teams Records Officer Relationship Specialty Start [place] [address] [place] [address] PCP - General Family Medicine 01/12/22 Alek Jones MD [address], [address] [address] Assigned PCP 03/01/21 Brayden Du MD [address] [facility] [id number] [place] [address] Neurology 05/06/22 documented as of this encounter
--- OUTSIDE RECORDS SUMMARY | 2023-07-07 15:33 | XMS_ITS | Encounter Summary ---
Author Name Unknown Organization [place] Address [address] [place] [address]. [place] [address] Care Team Providers Care Soundscriber Mechanic Name Role Phone Alek Jones MD Unavailable [phone] Neelima Shukla DO Primary Care Provider [phone] Brayden Du MD Unavailable Reason for Visit * Reason Comments Alcohol Intoxication Encounter Details Date Type Department Care Team (Late st Contact Info) Description 06/11/2023 7:17 PM CDT - 06/12/2023 11:01 AM CDT [facility] Emergency Dept [address] [place] [address] Kaushal Mao MD [facility] [address] [place], [place] [address] Isma Mohr MD [facility] [address] [place] [address] Darrick Reaves MD [facility] [address] [place], [place] [address] Alcoholic intoxication without complication (H24) Discharge Disposition: [...] Sex Assigned at Female 02/28/2021 1:24 PM PTA Gender Identity Female 02/28/2021 1:23 PM PTA Sexual Orientation Straight 02/28/2021 1: 20 PM PTA documented as of this encounter Last Filed [...] nerves or get rid of a hangover(eye crab catcher)? If you answer yes to any of [...] help, contact: Your caregiver. Alcoholics Anonymous (AA). [facility]: [phone] [facility] Central Office: [phone] A drug or alcohol rehabilitation program. You [...] 0 12/31/2014 hydrocortisone, Perianal, (PROCTOZONE-HC) 2.5 % creamIndications:Kier Hand al hemorrhoids Place rectally 2 times daily [...] mouth daily documented as of this encounter Consult Notes * Alisha Elizabeth - 06/12/2023 9:00 AM CDTAssociated Order(s): CARE MANAGEMENT / SOCIAL WORK IP CONSULT Flue Gas Analyst was asked to meet with patient to coordinate discharging home. Pt uses a wheelchair at baseline and does not have her wheelchair here. Pt's apartment is locked and she does not have keys. Flue Gas Analyst met with patient and discussed situation. Pt [facility]. She has 5 hours of PLANT FLOOR AUTOMATION MANAGER Mon-Th. She has a good friend in the building who helps her as well, this is Damian [phone] and he has a martini to her apartment and gave bid writer permission to this bid writer to call Damian. Pt reports she wants to go home today and does not want to remain in the hospital. She reports feeling safe to return home. She acknowledges she needs increased supports and is looking into Assisted Living Facilities, however does feel she can return home at this time. Flue Gas Analyst spoke with Damian. He does have a [...] living, however Sabine is out this week. Flue Gas Analyst met with Pt and she acknowledged this additional lock but believes the door can be jimmied open. Flue Gas Analyst discussed the option of calling After [employer] Emergency Maintenance for her building and the pt agreed. Flue Gas Analyst called [phone] and spoke to Samreen who took down the request. logistics management specialist Gavino [phone] called shortly later. Explained the situation to him and he indicated that he may need to call and lock maine which would be extra charges the patient would need to pay. Pt and writercalled Gavino back and patient gave consent to call a foam rubber molder if needed because she needs to get into her apartment. Pt informed this bid writer that neighbor Damian is okay with her coming back to his apartment and waiting there until her apartment is accessible. She reports she has a wheelchair in Damian's apartment. Flue Gas Analyst then spoke to patient about increased supports, provided her with her CADI workers name and number (obtained from [facility] [employer]) [facility] [employer], . Flue Gas Analyst encouraged to call Promise on Tuesday and inform her of the need for increased supports and RAJEEV. Flue Gas Analyst informed care team that patient has a safe place to return to while her apartment is unlocked, same building number and unit will be 116 (Damian). Faith Elizabeth [facility], [facility] Cleaner And Dyer Inpatient Care Coordination [facility] [phone] documented in this encounter ED Notes * [...] the past gotten shaky from not drinking. Shedoes not know if she has had a [...] 1,000 mL (0 mLs Intravenous Stopped 06/11/23 5745) Independent Interpretation (X-rays, CTs, rhythm strip): See [...] Mao MD Vaughn, Christopher E, MD 06/11/23 8701 * Darrick Reaves MD - 06/11/2023 7:17 [...] concerned about the possibility that the patient's group home manager may have quit this week and patient is not able to adequately care for herself. Patient denies this. We did consult social work and they investigatedas well. Social work notes that the group home manager only comes for approximately 5 hours a [...] Kaushal Mao MD LAB - BLOOD ORDE [facility] Organization Address City/State/ZIP Co de Phone Number LABORATORY [facility] Acute Care Lab [address] Lab (1st floor, no room number) [place] [address] * (ABNORMAL) Alcohol level blood (06/11/2023 8:53 PM CDT) Alcohol ethyl 0.35(HH) <=0.01 g/dL 06/11/2023 9:38 PM CDT [facility] LABORATORY Blood STRUCTURE OF RIGHT HAND / Unknown Venipuncture / Unknown 06/11/2023 8:53 PM CDT 06/11/2023 9:00 PM CDT Kaushal Mao MD LAB - BLOOD YINKA FONGZAID [facility] LABORATORY [facility] Acute Care Lab [address] [facility] Lab (1st floor, no room number) [place] [address], [facility] * (ABNORMAL) Basic metabolic panel (BMP) [...] Mao MD LAB - BLOOD YINKA PHILLIPS [facility] Organization Address City/State/ZIP Co de Phone Number [facility] Acute Care Lab [address] [facility] Lab (1st floor, no room number) [place] [address] documented in this encounter Visit Diagnoses [...] dose 2056 ($New Bag - Provider: Yamileth Oliveros, FILIPPO)232 (Stopped - Provider: Yamileth Oliveros RN) PRN Medication Order 06/10/2023 06/11/2023 06/12/2023 nicotine (COMMIT) lozenge 2 mg 2 mg, Buccal, EVERY 1 HOUR PRN, nicotine withdrawal symptoms, Starting on 06/11/23 at 2331, Allow lozenge to dissolve completely. Do Not Bite, Chew, or Swallow. 2332 ($Given - Provider: Indigo Encinas RN) 0450 ($Given - Provider: Carmelita Ivy RN)0609 ($Given - Provider: Corazon Ulrich, FILIPPO)0869 ($Given - Provider: Faith Henry, RN)1024 ($Given - Provider: Kori Ludwig, FILIPPO) documented in this encounter Additional Health Concerns Assessment Noted Time PHQ-9 Depression Total Score: 9 02/18/20 21 7:30 AM PTA documented as of this encounter Care Teams Soundscriber Mechanic Relationship Specialty [place] [address] [place] [address] PCP - General Family Medicine 01/12/22 Alek Jones MD [address], [address] [address] Assigned PCP 03/01/21 Brayden Du MD [address] [facility] [id number] [place] [address] Neurology 05/06/22 documented as of this encounter
--- OUTSIDE RECORDS SUMMARY | 2023-07-07 15:33 | XMS_ITS | Encounter Summary ---
Author Name Unknown Organization [place] Address [address] [facility] [place] [place] [address] Care Team Providers Care Business Applications Manager Name Role Phone Alek Jones MD Unavailable [phone] Neelima Shukla DO Primary Care Provider [phone] Brayden Du MD Unavailable Encounter Details Date [...] Sex Assigned at Female 02/28/2021 1:24 PM LONGWALL SHEARER OPERATOR Gender Identity Female 02/28/2021 1:23 PM LONGWALL SHEARER OPERATOR Sexual Orientation Straight 02/28/2021 1: 20 PM LONGWALL SHEARER OPERATOR documented as of this encounter Plan of Treatment Not on file documented as of this encounter Visit Diagnoses Not on filedocumented in this encounter Additional Health Concerns Assessment Noted Time PHQ-9 Depression Total Score: 9 02/18/20 21 7:30 AM LONGWALL SHEARER OPERATOR documented as of this encounter Care Teams Business Applications Manager Relationship Specialty [place] [address] [place] [address] PCP - General Family Medicine 01/12/22 Alek Jones MD [address] , [address] [place] [address] Assigned PCP 03/01/21 Brayden Du MD [address] [facility] [place] [id number] [place], [place] [address] Neurology 05/06/22 documented as of this encounter
--- OUTSIDE RECORDS SUMMARY | 2023-07-07 15:33 | XMS_ITS | Encounter Summary ---
Author Name Unknown Organization [place] Address [address] [facility] [place] [address] Care Team Providers Care Agricultural Produce Packer Name Role Phone Alek Jones MD Unavailable [phone] Neelima Shukla DO Primary Care Provider [phone] Brayden Du MD Unavailable Reason for Referral * Mental Health Outpatient (Routine) - Pending Review Specialty Diagnoses / Procedures Referred By Contac t Referred To Contact Behavioral Health Diagnoses Alcohol use, unspecified with other alcohol-induced disorder (H) Jessy Membreno CNP [address] [facility] [address] [place] [address] Referral ID Status Reason Start Date Expiration Date V isits Requested Visits Authorized [id number] Pending Review 07/01/2023 06/30/2024 1 1 Question Answer Services: Substance Use Substance Use - REVIEW REFERENCE LINK BELOW: Other My Clinical Question Is: alcohol use unspecified with other alcohol induced disorder Scheduling Instructions: Shemar Haywood will call you to coordinate your care as prescribed by your provider. If you don't hear from a client service representative within 2 business days, please call . Comments Referral Transcribed by external fax Provider: HOME Membreno affiliated with [facility] clinic at [address] [facility] [address] [place] [address]. VA: No If yes was is the VA Authorization Number: Phone number: [phone] Fax number: [phone] Please be aware that coverage of these services is subject to the terms and limitations of your health insurance plan. Call member services at your health plan with any benefit or coverage questions. [facility] will call you to coordinate your care as prescribed by your provider. If you don't hear from a client service representative within 2 business days, please call . [...] Sex Assigned at Female 02/28/2021 1:24 PM CHIEF SERVICE DISPATCHER Gender Identity Female 02/28/2021 1:23 PM CHIEF SERVICE DISPATCHER Sexual Orientation Straight 02/28/2021 1: 20 PM CHIEF SERVICE DISPATCHER documented as of this encounter Plan of Treatment Scheduled Referrals Name Type Priority Associated Diagnoses Orde r Schedule Adult Mental Health Combination Technician Referral Referral Routine Alcohol use, unspecified with other alcohol-induced disorder (H) Expected: 07/01/2023 (Approximate), Expires: 06/30/2024 documented as of this encounter Visit Diagnoses Diagnosis Alcohol use, unspecified with other alcohol-induced disorder (H)- Primary documented in this encounter Additional Health Concerns Assessment Noted Time PHQ-9 Depression Total Score: 9 02/18/20 21 7:30 AM CHIEF SERVICE DISPATCHER documented as of this encounter Care Teams Agricultural Produce Packer Relationship Specialty [place] [address] [place] [address] PCP - General Family Medicine 01/12/22 Alek Jones MD [address] [place] [address], [address] [address] Assigned PCP 03/01/21 Brayden Du MD [address] [id number] [address] Neurology 05/06/22 documented as of this encounter
--- OUTSIDE RECORDS SUMMARY | 2023-07-07 15:33 | XMS_ITS | Encounter Summary ---
Author Name Unknown Organization [place] Address [address] [facility] [place] [address] Care Team Providers Care Pump Erector Name Role Phone Rose Pelletier SERVER ADMINISTRATOR Unavailable [phone] Alek Jones MD Primary Care Provide r Alek Jones MD Unavailable [phone] [place]([facility] Unavailable Alexa Simon PA-C Unavailable + [phone] Alek Jones MD Unavailable [phone] Neelima Shukla DO Primary Care Provider [phone] Brayden Du MD Unavailable Encounter Details Date [...] Sex Assigned at Female 02/28/2021 1:24 PM IRRIGATIONIST DESIGNER Gender Identity Female 02/28/2021 1:23 PM IRRIGATIONIST DESIGNER Sexual Orientation Straight 02/28/2021 1: 20 PM IRRIGATIONIST DESIGNER documented as of this encounter Plan of Treatment Not on file documented as of this encounter Visit Diagnoses Not on filedocumented in this encounter Additional Health Concerns Infection Onset Date Last Indicated Resolved Time 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/07/2020 11/07/2020 11/09/2020 1:31 AM CDT Assessment Noted Time PHQ-9 Depression Total Score: 11 021 3:32 PM IRRIGATIONIST DESIGNER documented as of this encounter Care Teams Pump Erector Relationship Specialty Start Date End Date Alek Jones MD [address] , [address] [address] PCP - General Family Practice 03/18/16 01/11/22 [place] [address] [place] [address] PCP - General Family Medicine 01/12/22 Rose Pelletier LSW Bench Repair Technician 09/19/14 07/10/20 Alek Jones MD [address] , [address] [address] Assigned PCP 06/08/20 02/14/21 [place](Fgs), [address] [id number] Fdc Facility 10/27/20 11/14/20 Alexa Simon PA-C [address] , [address] [address] Assigned PCP 02/15/21 02/28/21 Alek Jones MD [address], [address] [place] [address] Assigned PCP 03/01/21 Brayden Du MD [address] [facility] [id number] [place] [address] Neurology 05/06/22 documented as of this encounter
--- OUTSIDE RECORDS SUMMARY | 2023-07-07 15:33 | XMS_ITS | Encounter Summary ---
Author Name Unknown Organization [place] Address [facility] [place] [address] Care Team Providers Care Engraving Plate Maker Name Role Phone Jeramie Sterling MD Primary Care Provider Elodia Rose Oliveira Marcie ORDERING MACHINE OPERATOR Unavailable [phone] Estela Dacosta Primary Care Provi nnamdi Kelley Love MD Primary Care Provider [phone] Alek Jones MD Primary Care Provide r Alek Jones MD Unavailable [phone] Alek Jones MD Unavailable [phone] Alexa Simon PA-C Unavailable + [phone] Alexa Simon PA-C Unavailable + [phone] Alek Jones MD Unavailable [phone] [place]([facility] Unavailable Alexa Simon PA-C Unavailable + [phone] Alek Jones MD Unavailable [phone] Neelima Shukla DO Primary Care Provider [phone] Brayden Du MD Unavailable Reason for Visit * Reason Comments Medication Refill Encounter Details Date Type Department Care Team (Late st Contact Info) Description 02/18/2015 Refill [facility] [address] [place] [address] [address] [place] [address] Jeramie Sterling MD XXXX RESIGNED/INACTIVE XXXX Medication Refill Social History Tobacco Use Types Packs/Day Years Used Date Smoking Tobacco: Former Smokeless Tobacco: Never Alcohol Use Standard Drinks/Week Comments No 0 (1 standard drink = 0.6 oz pur e alcohol) Sex and Gender Information Value Date Recorded Sex Assigned at Female 02/28/2021 1:24 PM STEEL ERECTING PUSHER Gender Identity Female 02/28/2021 1:23 PM STEEL ERECTING PUSHER Sexual Orientation Straight 02/28/2021 1: 20 PM STEEL ERECTING PUSHER documented as of this encounter Miscellaneous Notes * Telephone Encounter - Jeramie Sterling MD - 02/18/2015 11:54 AM STEEL ERECTING PUSHER IS THIS A NEW MED, NO DX, HAVE WE RX IN PAST, ?? L ERECTING PUSHER * Telephone Encounter - Deloris Eddy CMA - 02/18/2015 8:00 AM CST Pending Prescriptions: Disp Refills PROCTOZONE-HC 2.5 % rectal cream [Pharmac*30 g 0 Sig: INSERT 1 APPLICATION RECTALLY THREE TIMES DAILY FOR 10 DAYS You never prescribed this, are you willing to fill? Please associate dx code L ERECTING PUSHER documented in this encounter Plan of Treatment Not on file documented as of this encounter Visit Diagnoses Not on filedocumented in this encounter Additional Health Concerns Infection Onset Date Last Indicated Resolved Time 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/07/2020 11/07/2020 11/09/2020 1:31 AM CDT documented as of this encounter Care Teams Engraving Plate Maker Relationship Specialty Start Date End Date Jeramie Sterling MD PCP - General Family Practice 07/24/14 11/09/15 Estela Dacosta PA PCP - General Family Practice 11/10/15 12/17/15 Kelley Love MD [address] , [address] [address] PCP - General Family Practice 12/18/15 03/17/16 Alek Jones MD [address] [address] PCP - General Family Practice 03/18/16 01/11/22 [place] [address] [place] [address] PCP - General Family Medicine 01/12/22 Rose Pelletier [facility] Field Service Coordinator 09/19/14 07/10/20 Alek Jones MD [address] [place] [address] Assigned PCP 04/08/19 05/24/20 Alek Jones MD [address] [place] [address] Assigned PCP 12/25/17 03/31/19 Alexa Simon PA-C [address], [address] [address] Assigned PCP 04/01/19 04/07/19 Alexa Simon PA-C [address] [address] Assigned PCP 05/25/20 06/07/20 Alek Jones MD [address] [place] [address] Assigned PCP 06/08/20 02/14/21 [place]([facility]gs), [address] [address] Longterm Facility 10/27/20 11/14/20 Alexa Simon PA-C [address] [address] Assigned PCP 02/15/21 02/28/21 Alek Jones MD [address] [address] Assigned PCP 03/01/21 Brayden Du MD [address] [place] [address] [id number] [place] [address] MD [place] 05/06/22 documented as of this encounter
--- OUTSIDE RECORDS SUMMARY | 2023-07-07 15:34 | XMS_ITS | Encounter Summary ---
Author Name Unknown Organization [place] Address [facility] [place] [address] Care Team Providers Care Hostage Negotiator Name Role Phone Jeramie Sterlnig MD Primary Care Provider Elodia Rose Oliveira Marcie BOTTLE HOP Unavailable [phone] Estela Dacosta Primary Care Provi nnamdi Kelley Love MD Primary Care Provider [phone] Alek Jones MD Primary Care Provide r Alke Jones MD Unavailable [phone] Alek Jones MD Unavailable [phone] Alexa Simon PA-C Unavailable + [phone] Alexa Simon PA-C Unavailable + [phone] Alek Jones MD Unavailable [phone] [place](Fgs)[facility] Unavailable Alexa Simon PA-C Unavailable + [phone] Alek Jones MD Unavailable [phone] Neeliam Shukla DO Primary Care Provider [phone] Brayden Du MD Unavailable Reason for Visit * Reason Comments Medication Refill Encounter Details Date Type Department Care Team (Late st Contact Info) Description 09/13/2014 Refill [facility] [address] [place] [address] [address] [place] [address] Jeramie Sterling MD XXXX RESIGNED/INACTIVE XXXX Medication Refill Social History Tobacco Use Types Packs/Day Years Used Date Smoking Tobacco: Former Smokeless Tobacco: Never Alcohol Use Standard Drinks/Week Comments No 0 (1 standard drink = 0.6 oz pur e alcohol) Sex and Gender Information Value Date Recorded Sex Assigned at Female 02/28/2021 1:24 PM WORKSITE WELLNESS PRACTITIONER Gender Identity Female 02/28/2021 1:23 PM WORKSITE WELLNESS PRACTITIONER Sexual Orientation Straight 02/28/2021 1: 20 PM WORKSITE WELLNESS PRACTITIONER documented as of this encounter Miscellaneous Notes [...] documented as of this encounter Care Teams Hostage Negotiator Relationship Specialty Start Date End Date Jeramie Sterling MD PCP - General Family Practice 07/24/14 11/09/15 Estela Dacosta PA PCP - General Family Practice 11/10/15 12/17/15 Kelley Love MD [address] , [address] [place] [address] [address] PCP - General Family Practice 12/18/15 03/17/16 Alek Jones MD [address], [address] [address] PCP - General Family Practice 03/18/16 01/11/22 [place] [address] [place] [address] PCP - General Family Medicine 01/12/22 Rose Pelletier, [facility] Precinct Commanding Officer 09/19/14 07/10/20 Alek Jones MD [address], [address] [address] Assigned PCP 04/08/19 05/24/20 Alek Jones MD [address], [address] [address] Assigned PCP 12/25/17 03/31/19 Alexa Simon PA-C [address], [address] [place] [address] Assigned PCP 04/01/19 04/07/19 Alexa Simon PA-C [address], [address] [place] [address] [address] Assigned PCP 05/25/20 06/07/20 Alek Jones MD [address], [address] [address] Assigned PCP 06/08/20 02/14/21 [place] [address] [place] [address] Care Home Facility 10/27/20 11/14/20 Alexa Simon PA-C [address] [address] [place], [place] [address] Assigned PCP 02/15/21 02/28/21 Alek Jones MD [address] , [id number] [place], [place] [address] Assigned PCP 03/01/21 Brayden Du MD [address] [place] [address] [id number] [place] [address] MD [place] 05/06/22 documented as of this encounter
--- OUTSIDE RECORDS SUMMARY | 2023-07-07 15:34 | XMS_ITS | Encounter Summary ---
Author Name Unknown Organization [place] Address [address] [facility] [place] [address] Care Team Providers Care Converter Operator Name Role Phone Jeramie Sterling MD Primary Care Provider Elodia Rose Oliveira Marcie CARD LACER JACQUARD Unavailable [phone] Estela Dacosta Primary Care Provi nnamdi Kelley Love MD Primary Care Provider [phone] Alek Jones MD Primary Care Provide r Alek Jones MD Unavailable [phone] Alek Jones MD Unavailable [phone] Alexa Simon PA-C Unavailable + [phone] Alexa Simon PA-C Unavailable + [phone] Alek Jones MD Unavailable [phone] [place]([facility] Unavailable Alexa Simon PA-C Unavailable + [phone] Alek Jones MD Unavailable +[phone] Neelima Shukla DO Primary Care Provider [phone] Brayden Du MD Unavailable Reason for Visit * Reason Comments Other Encounter Details Date Type Department Care Team ([facility] Contact Info) Description 08/02/2014 Telephone [facility] Behavioral Health Intake [address] [place] [address] Generic, Behavioral Intake, Social History Tobacco Use Types Packs/Day Years Used Date Smoking Tobacco: Former Smokeless Tobacco: Never Alcohol Use Standard Drinks/Week Comments No 0 (1 standard drink = 0.6 oz pur e alcohol) Sex and Gender Information Value Date Recorded Sex Assigned at Female 02/28/2021 1:24 PM RESIDUE FURNACE OPERATOR Gender Identity Female 02/28/2021 1:23 PM RESIDUE FURNACE OPERATOR Sexual Orientation Straight 02/28/2021 1: 20 PM RESIDUE FURNACE OPERATOR documented as of this encounter Miscellaneous Notes * Telephone Encounter - Chayo Fraire - 08/02/2014 1:57 PM CDT ----- Message from Mihaela Gillette sent at 08/02/2014 12:47 PM CDT ----- Regarding: Seniors DOP referral I will fax [facility] Courtesy Rule 25 and ask for them to contact [facility] Ward site with authorization. * Telephone Encounter - [...] documented as of this encounter Care Teams Converter Operator Relationship Specialty Start Date End Date Jeramie Sterling MD PCP - General Family Practice 07/24/14 11/09/15 Estela Dacosta PA PCP - General Family Practice 11/10/15 12/17/15 Kelley Love MD [address] , [address] [address] PCP - General Family Practice 12/18/15 03/17/16 Alek Jones MD [address] , [address] [address] PCP - General Family Practice 03/18/16 01/11/22 [place] [address] [place] [address] PCP - General Family Medicine 01/12/22 Rose Pelletier, [facility] Fur Scraper 09/19/14 07/10/20 Alek Jones MD [address] , [address] [address] Assigned PCP 04/08/19 05/24/20 Alek Jones MD [address] , [address] [address] Assigned PCP 12/25/17 03/31/19 Alexa Simon PA-C [address] , [address] [address] Assigned PCP 04/01/19 04/07/19 Alexa Simon PA-C [address] [address] Assigned PCP 05/25/20 06/07/20 Alek Jones MD [address] [address] [address] Assigned PCP 06/08/20 02/14/21 [place]), [address] [phone] [facility] 10/27/20 11/14/20 Alexa Simon PA-C [address] , [address] [address] Assigned PCP 02/15/21 02/28/21 Alek Jones MD [address] [address] Assigned PCP 03/01/21 Brayden Du MD [address] [place] [address] [id number] [place] [address] MD Reynolds 05/06/22 documented as of this encounter
--- OUTSIDE RECORDS SUMMARY | 2023-07-07 15:34 | XMS_ITS | Encounter Summary ---
Author Name Unknown Organization [place] Address [facility] [place] [address] Care Team Providers Care Regional Forester Name Role Phone Jeramie Sterling MD Primary Care Provider Elodia Rose Oliveira Marcie PHOTO LAB SPECIALIST Unavailable [phone] Estela Dacosta Primary Care Provi nnamdi Kelley Love MD Primary Care Provider [phone] Alek Jones MD Primary Care Provide r Alek Jones MD Unavailable [phone] Alek Jones MD Unavailable [phone] Alexa Simon PA-C Unavailable + [phone] Alexa Simon PA-C Unavailable + [phone] Alek Jones MD Unavailable [phone] [place]([facility] Unavailable Alexa Simon PA-C Unavailable + [phone] Alek Jones MD Unavailable [phone] Neelima Shukla DO Primary Care Provider [phone] Brayden Du MD Unavailable Reason for Visit * Reason Comments Medication Refill Encounter Details Date Type Department Care Team (Late st Contact Info) Description 11/12/2014 Refill [facility] [address] [place] [address] [address] [place] [address] Jeramie Sterling MD XXXX RESIGNED/INACTIVE XXXX Medication Refill Social History Tobacco Use Types Packs/Day Years Used Date Smoking Tobacco: Former Smokeless Tobacco: Never Alcohol Use Standard Drinks/Week Comments No 0 (1 standard drink = 0.6 oz pur e alcohol) Sex and Gender Information Value Date Recorded Sex Assigned at Female 02/28/2021 1:24 PM MANUFACTURING CLERK Gender Identity Female 02/28/2021 1:23 PM MANUFACTURING CLERK Sexual Orientation Straight 02/28/2021 1: 20 PM MANUFACTURING CLERK documented as of this encounter Miscellaneous [...] documented as of this encounter Care Teams Regional Forester Relationship Specialty Start Date End Date Jeramie Sterling MD PCP - General Family Practice 07/24/14 11/09/15 Estela Dacosta PA PCP - General Family Practice 11/10/15 12/17/15 Kelley Love MD [address] [address] PCP - General Family Practice 12/18/15 03/17/16 Alek Jones MD [address] [address] PCP - General Family Practice 03/18/16 01/11/22 [place] [address] [place] [address] PCP - General Family Medicine 01/12/22 Rose Pelletier PHOTO LAB SPECIALIST Tab Cutting Machine Operator 09/19/14 07/10/20 Alek Jones MD [address] [facility] [address] [address] Assigned PCP 04/08/19 05/24/20 Alek Jones MD [address] [facility] [address] [address] Assigned PCP 12/25/17 03/31/19 Alexa Simon PA-C [address] [facility] [address] [address] Assigned PCP 04/01/19 04/07/19 Alexa Simon PA-C [address] [facility] [address] [address] Assigned PCP 05/25/20 06/07/20 Alek Jones MD [address] [facility] [address] [address] Assigned PCP 06/08/20 02/14/21 [place]), [address] [phone] [facility] Facility 10/27/20 11/14/20 Alexa Simon PA-C [address] [place] [address] [address] [place] [address] Assigned PCP 02/15/21 02/28/21 Alek Jones MD [address] [facility] [address] [address] Assigned PCP 03/01/21 Baryden Du MD [address] [place] [address] [id number] [address] Neurology 05/06/22 documented as of this encounter
--- OUTSIDE RECORDS SUMMARY | 2023-07-07 15:34 | XMS_ITS | Clinical Summary ---
Author Name Unknown Organization [facility] Address [address] [place] [address] Care Team Providers Care Primer Inserting Machine Operator Name Role Phone Alek Jones MD Primary Care Provider [phone] Source Comments You are receiving this document as you are listed as the primary care provider,follow-up provider, or the patient has been referred to you for consultation.This is in compliance with the Medicare and[facility] Hospital[facility] EHR Incentive Program,which states Providers who transition their patient to another setting of careor provider of care or refers their patient to another provider of care shouldprovide summary care record for each transition of care or referral. [employer] Allergies Active Allergy Reactions Criticality Noted Date [...] Pt on dilantin and sees neurology [facility] Symptomatic menopausal or female climacteric sta mark 05/27/2009 Overview: LW Onset: 02/2008 ; Menopause Convulsions 12/23/2008 Overview: Seizure NOS Restless legs syndrome (RLS) 12/23/2008 Overview: Restless Leg Syndrome Insomnia 12/23/2008 Overview: Insomnia NOS Allergic rhinitis 12/23/2008 Overview: Rhinitis Allergic NOS Restless legs syndrome 07/11/2006 Overview: Restless Leg Syndrome Anxiety 04/01/2006 Insomnia 04/01/2006 Overview: Insomnia NOS Urinary incontinence 05/22/2004 Overview: LW Onset: 95Mrz74 ; Incontinence Urinary NOS Disorder of bone and cartilage 05/22/2004 Overview: LW Onset: 60Wli61 ; Osteopenia Migraine 03/08/2003 Overview: LW Onset: 00Uiv28 ; 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 LW Onset: 13Neb70 ; Arteriovenous Malformation Depression, major, in remission [...] 72.1 kg (159 lb) 03/31/2020 2:15 PM HANDY MAN Height 160 cm (5' 3) 03/31/2020 2:15 PM HANDY MAN Body Mass Index 28.17 03/31/2020 2:15 PM HANDY MAN Plan of Treatment Health Maintenance Due Date [...] BILAT W CAD Routine 06/01/2011 12:35 PM HANDY MAN Routine gynecological examination LIPID PANEL & DIRECT LDL (IF NEEDED) Routine 04/15/2010 1:56 PM HANDY MAN from Last 3 Months or Most Recently Relevant to Health Maintenance Results * (ABNORMAL) MM Mammogram Screening Bilat W CAD (06/01/2011 12:35 PM HANDY MAN) Anatomical Region Laterality Modality Breast Bilateral Mammography Impressions 06/01/2011 2:31 PM HANDY MAN IMPRESSION: RIGHT BREAST: Architectural distortion posteriorly. Spot compression and ultrasound are recommended at this time. LEFT BREAST: Negative, no evidence of malignancy. Normal interval follow-up is recommended in 12 months. OVERALL ASSESSMENT - CATEGORY 0 - INCOMPLETE: NEED ADDITIONAL IMAGING EVALUATION END OF IMPRESSION SJW Narrative 06/01/2011 2:31 PM HANDY MAN Comparison is made to films from 11/27/2009 [...] and Direct LDL(If Needed) (04/15/2010 1:56 PM HANDY MAN) Cholesterol 264(H) 0 - 200 mg/dL HP CONVERSION Triglycerides 87 0 - 149 mg/dL HP CONVERSION HDL Cholesterol 83 >39 mg/dL HP CONVERSION Cholesterol/HDL Ratio Screen 3.2 No normal range HP CONVERSION LDL Calculated 164(H) 19 - 130 mg/dL HP CONVERSION Hours Fasting 12 No normal range HP CONVERSION 04/15/2010 1:56 PM HANDY MAN Deandra Webb MD LAB_1 HP CONVERSION from Last 3 Months or Most Recently Relevant to Health Maintenance Care Teams Primer Inserting Machine Operator Relationship Specialty Start Date End Date Alek Jones MD [address], [address] [address] PCP - General Family Practice 03/17/20
--- OUTSIDE RECORDS SUMMARY | 2023-07-07 15:34 | XMS_ITS | Encounter Summary ---
Author Name Unknown Organization [place] Address [address] [facility] [place] [address] Care Team Providers Care Motorcycle Technician Name Role Phone Jeramie Sterling MD Primary Care Provider Elodia Rose Oliveira Marcie FARO DEALER Unavailable [phone] Estela Dacosta Primary Care Provi nnamdi Kelley Love MD Primary Care Provider [phone] Alek Jones MD Primary Care Provide r Alek Jones MD Unavailable [phone] Alek Jones MD Unavailable [phone] Alexa Simon PA-C Unavailable + [phone] Alexa Simon PA-C Unavailable + [phone] Alek Jones MD Unavailable [phone] [place](Fgs)[facility] Unavailable Alexa Simon PA-C Unavailable + [phone] Alek Jones MD Unavailable [phone] Neelima Shukla DO Primary Care Provider [phone] Brayden Du MD Unavailable Reason for Visit * Reason Onset Date Comments MH/CD Inpatient 07/30/2014 Other Encounter Details Date Type Department Care Team ([facility] Contact Info) Description 07/30/2014 Telephone [facility] Intake [address] [place] [address] Generic, Behavioral MD Suleman MH/CD Inpatient; Social History Tobacco Use Types Packs/Day Years Used Date Smoking Tobacco: Former Smokeless Tobacco: Never Alcohol Use Standard Drinks/Week Comments No 0 (1 standard drink = 0.6 oz pur e alcohol) Sex and Gender Information Value Date Recorded Sex Assigned at Female 02/28/2021 1:24 PM GROUNDS WORKER Gender Identity Female 02/28/2021 1:23 PM GROUNDS WORKER Sexual Orientation Straight 02/28/2021 1: 20 PM GROUNDS WORKER documented as of this encounter Miscellaneous Notes * Telephone Encounter - Nino Flores, RN - 07/30/2014 3:09 PM CDT S: Patient presents to [facility] brought in by friends with a [...] and voluntary. R: Admit to station 3a, [facility] CD, [facility] accepts. documented in this encounter Plan of Treatment Not on file documented as of this encounter Visit Diagnoses Not on filedocumented in this encounter Additional Health Concerns Infection Onset Date Last Indicated Resolved Time 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/07/2020 11/07/2020 11/09/2020 1:31 AM CDT documented as of this encounter Care Teams Motorcycle Technician Relationship Specialty Start Date End Date Jeramie Sterling MD PCP - General Family Practice 07/24/14 11/09/15 Estela Dacosta PA PCP - General Family Practice 11/10/15 12/17/15 Kelley Love MD [address], [address] [address] PCP - General Family Practice 12/18/15 03/17/16 Alek Jones MD [address], [address] [address] PCP - General Family Practice 03/18/16 01/11/22 [place] [address] [place] [address] PCP - General Family Medicine 01/12/22 Rose Pelletier FARO DEALER Wardrobe Consultant 09/19/14 07/10/20 Alek Jones MD [address], [address] [address] Assigned PCP 04/08/19 05/24/20 Alek Jones MD [address], [address] [address] Assigned PCP 12/25/17 03/31/19 Alexa Simon PA-C [address], [address] [address] Assigned PCP 04/01/19 04/07/19 Alexa Simon PA-C [address], [address] [address] Assigned PCP 05/25/20 06/07/20 Alek Jones MD [address] , [address] [address] Assigned PCP 06/08/20 02/14/21 [place](Fgs), [address] [phone] Residential Facility 10/27/20 11/14/20 Alexa Simon PA-C [address], [address] [address] Assigned PCP 02/15/21 02/28/21 Alek Jones MD [address], [address] [address] Assigned PCP 03/01/21 Brayden Du MD [address] [place] [address] [id number] [place] [address] MD Reynolds 05/06/22 documented as of this encounter
--- OUTSIDE RECORDS SUMMARY | 2023-07-07 15:34 | XMS_ITS | Encounter Summary ---
Author Name Unknown Organization [place] Address [facility] [place] [address] Care Team Providers Care Yarn Comber Name Role Phone Jeramie Sterling MD Primary Care Provider Elodia Rose Oliveira Marcie WELDING MACHINE OPERATOR ELECTROSLAG Unavailable [phone] Estela Dacosta Primary Care Provi nnamdi Kelley Love MD Primary Care Provider [phone] Alek Jones MD Primary Care Provide r Alek Jones MD Unavailable [phone] Alek Jones MD Unavailable [phone] Alexa Simon PA-C Unavailable + [phone] Alexa Simon PA-C Unavailable + [phone] Alek Jones MD Unavailable [phone] [place](Fgs)[facility] Unavailable Alexa Simon PA-C Unavailable + [phone] Alek Jones MD Unavailable [phone] Neelima Shukla DO Primary Care Provider [phone] Brayden Du MD Unavailable Reason for Visit * Reason Comments Medication Refill Encounter Details Date Type Department Care Team (Late st Contact Info) Description 10/14/2014 Refill [facility] [address] [place] [address] [address] [place] [address] Jeramie Sterling MD XXXX RESIGNED/INACTIVE XXXX Medication Refill Social History Tobacco Use Types Packs/Day Years Used Date Smoking Tobacco: Former Smokeless Tobacco: Never Alcohol Use Standard Drinks/Week Comments No 0 (1 standard drink = 0.6 oz pur e alcohol) Sex and Gender Information Value Date Recorded Sex Assigned at Female 02/28/2021 1:24 PM COMMISSIONING MANAGER Gender Identity Female 02/28/2021 1:23 PM COMMISSIONING MANAGER Sexual Orientation Straight 02/28/2021 1: 20 PM COMMISSIONING MANAGER documented as of this encounter Plan of Treatment Not on file documented as of this encounter Visit Diagnoses Not on filedocumented in this encounter Additional Health Concerns Infection Onset Date Last Indicated Resolved Time 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/07/2020 11/07/2020 11/09/2020 1:31 AM CDT documented as of this encounter Care Teams Yarn Comber Relationship Specialty Start Date End Date Jeramie Sterling MD PCP - General Family Practice 07/24/14 11/09/15 Estela Dacosta PA PCP - General Family Practice 11/10/15 12/17/15 Kelley Love MD [address] [place] [address] PCP - General Family Practice 12/18/15 03/17/16 Alek Jones MD [address] [place] [address] PCP - General Family Practice 03/18/16 01/11/22 [place] [address] [place] [address] PCP - General Family Medicine 01/12/22 Rose Pelleiter LSW Umbrella Finisher 09/19/14 07/10/20 Alek Jones MD [address], [address] [address] Assigned PCP 04/08/19 05/24/20 Alek Jones MD [address], [address] [address] Assigned PCP 12/25/17 03/31/19 Alexa Simon PA-C [address] , [address] [address] Assigned PCP 04/01/19 04/07/19 Alexa Simon PA-C [address] , [address] [address] Assigned PCP 05/25/20 06/07/20 Alek Jones MD [address] , [address] [address] Assigned PCP 06/08/20 02/14/21 [place](Fgs), [address] [phone] Long Term Facility 10/27/20 11/14/20 Alexa Simon PA-C [address] , [address] [address] Assigned PCP 02/15/21 02/28/21 Alek Jones MD [address] , [address] [address] Assigned PCP 03/01/21 Brayden Du MD [address] [place] [address] [id number] [place] [address] Neurology 05/06/22 documented as of this encounter
== END 2023-07-05 12:32 | disposition home or self-care (01) ==
LOC: AMB 07-07 15:30
PROVIDERS: PCP Family Medicine; Visit Provider Emergency Medicine
DX: R53.83 Other fatigue (principal); R62.7 Adult failure to thrive
CPT/HCPCS: A0425; A0429

== ENCOUNTER 2023-07-05 13:29 | Inpatient (IN) | payer MEDICARE, MEDICAID, SELFPAY ==
[2023-07-05] VITALS (18 sets, daily range): BP systolic 86–117; BP diastolic 40–80; PULSE 114–130; RESP 16–18; TEMP 36.2–37.1; O2SAT 73–100; BMI 31.9; BMI 33.7
[2023-07-05 14:11] LABS: HCO3 VBG 27 mmol/L (21-28); PCO2 VBG 42 mmHG (40-50); PO2 VBG 32.4 mmHG (25-47); pH VBG 7.412 (7.32-7.43)
[2023-07-05 14:12] LABS: Lactate Sepsis w/Reflex* 4.8 mmol/L (0.5-1.9)
[2023-07-05 14:16] LABS: Basophils Percent Auto 1.1 % (0.0-3.0); Eosinophils Absolute Auto 0.29 K/uL (0.00-0.50); Hematocrit 28.6 % (33.0-51.0); Hemoglobin* 8.9 gm/dL (12.0-16.0); Immature Granulocytes Abs Auto 0.02 K/uL (0.00-0.30); Immature Granulocytes Pct Auto 0.2 %; Lymphocytes Absolute Auto 2.36 K/uL (0.90-2.90); Lymphocytes Percent Auto 24.8 % (20-44); Mean Corpuscular HGB Conc 31 gm/dL (32-36); Mean Corpuscular Hemoglobin 29 pg (26-34); Mean Corpuscular Volume 92 fL (80-100); Monocytes Percent Auto 8.7 % (0.0-11.0); Neutrophils Absolute Auto 5.91 K/uL (1.7-7.0); Neutrophils Percent Auto 62.2 % (42.0-72.0); Platelet Count* 462 K/uL (140-440); Red Blood Count 3.11 m/uL (4.00-5.20); White Blood Count* 9.51 K/uL (4.50-11.00)
--- OUTSIDE RECORDS SUMMARY | 2023-07-05 14:16 | XMS_ITS | Clinical Summary ---
Author Name Unknown Organization [employer] [facility] Address [place], [place] [address] Care Team Providers Care Bow Tacker Name Role Phone Neelima Shukla DO Primary Care Provider Deloris Wilson RN Unavailable [phone] Allergies Active Allergy Reactions Criticality Noted Date Comments Propoxyphene Seizures 04/01/2006 Medications Medication Sig Dispensed Refills Start Date End Date Status multivitamin (Multi-Vitamin) tabletIndications: Therapeutic Take 1 Tablet by mouth once daily. 0 2 Active acetaminophen (TYLENOL EXTRA STRGTH) 500 mg tabletIndications: Migraine without status migrainosus, not intractable, unspecified migraine type,Chronic pain syndrome Take 2 Tablets (1,000 mg) by mouth every 6 hours if needed for Pain or Headache. 0 2 Active aspirin chewable 81 mg chewable tabletIndications: Therapeutic Chew 1 Tablet (81 mg) by mouth once daily with a meal. 0 2 Active calcium carbonate (TUMS) 200 mg calcium (500 mg) chewable tabletIndications: Therapeutic Chew 1 Tablet (500 mg) by mouth 4 times daily if needed for Heartburn. 0 2 Active nicotine 4 mg lozengeIndications :Cigarette nicotine dependence without complication Place 1 Lozenge (4 mg) in mouth, between cheek & gum every hour while awake as needed for Nicotine Craving. Max 20 doses/day. 0 2 Active wheelchairIndicati ons:Neuropathy,Lef t-sided weakness Motorized Wheelchair. Length of need: 99 months. [facility] 1 Each 3 Active omeprazole (PRILOSEC) 20 mg Delayed-Release capsuleIndications :Gastroesophageal reflux disease, unspecified whether esophagitis present TAKE ONE CAPSULE BY MOUTH EVERY DAY IN THE MORNING. 90 Capsule 3 3 Active folic acid 1 mg tabletIndications: Therapeutic,Alcoho l abuse Take 1 Tablet (1 mg) by mouth once daily. 90 Tablet 2 3 Active rOPINIRole (REQUIP) 0.5 mg tabletIndications: Restless legs syndrome Take 3 Tablets (1.5 mg) by mouth at bedtime. 270 Tablet 3 Active SUMAtriptan (IMITREX) 100 mg tabletIndications: Migraine without status migrainosus, not intractable, unspecified migraine type TAKE 1 TABLET BY MOUTH 2 TIMES DAILY IF NEEDED FOR MIGRAINE. GIVE AT MINIMUM 2 HOURS APART. MAX DOSE: 200MG PER 24 HOURS 9 Tablet 5 3 Active cyanocobalamin (VITAMIN B12) 1,000 mcg tabletIndications: Vitamin B12 deficiency TAKE 1 TABLET BY MOUTH DAILY 100 Tablet 2 3 Active rotigotine 2 mg/24 hr (Neupro) 2 mg/24 hour patchIndications:R estless legs syndrome Apply 1 Patch on dry, clean, hairless skin once daily. 30 Patch 11 3 Active clopidogreL (PLAVIX) 75 mg tabletIndications: Brain aneurysm Take 1 tablet (75mg) by mouth once daily through 07/15/2023, then decrease to taking 1 (75mg) tablet by mouth every other day through 08/14/2023, then stop taking. 90 Tablet 1 3 Active pregabalin (LYRICA) 300 mg capsuleIndications :Neuropathy TAKE 1 CAPSULE BY MOUTH 2 TIMES DAILY 60 Capsule 3 Active suvorexant (Belsomra) 20 mg tabletIndications: Insomnia, unspecified type TAKE ONE TABLET BY MOUTH AT BEDTIME 90 Tablet 3 Active estradioL (ESTRACE) 0.01% (0.1 mg/g) vaginal creamIndications:U rinary urgency,Atrophic vaginitis Apply 1g vaginally at bedtime for 1 week, then decrease to 0.5g twice weekly at bedtime. 42.5 g 3 3 Active medication order composerIndication s:Urinary urgency,Left hemiparesis (HC) Bedtime commode 1 unit 3 Active docusate (COLACE) 100 mg capsuleIndications :Constipation, acute Take 1 Capsule (100 mg) by mouth 2 times daily if needed for Constipation. 180 Capsule 1 3 Active citalopram (CELEXA) 40 mg tabletIndications: Generalized anxiety disorder,MDD (major depressive disorder), recurrent, in full remission (HC) Take 1 Tablet (40 mg) by mouth once daily. 90 Tablet 4 Active mirtazapine (REMERON) 45 mg tabletIndications: Generalized anxiety disorder,MDD (major depressive disorder), recurrent, in full remission (HC) Take 1 Tablet (45 mg) by mouth at bedtime. 30 Tablet 2 4 Active Vitamin D-3 50 mcg (2,000 unit) capsuleIndications :Vitamin D insufficiency TAKE 1 CAPSULE BY MOUTH DAILY 90 Capsule 3 4 Active phenytoin extended (DILANTIN) 100 mg ER capsuleIndications :History of seizures Take 1 capsule by mouth every morning, 1 capsule every afternoon, and 2 capsules at bedtime. 120 Capsule 2 4 Active metoprolol tartrate (LOPRESSOR) 50 mg tabletIndications: Tachycardia TAKE ONE TABLET BY MOUTH DAILY. HOLD IF SBP <90. 30 Tablet 4 Active metoprolol tartrate (LOPRESSOR) 50 mg tabletIndications: Tachycardia Take 1 Tablet (50 mg) by mouth two times daily. 180 Tablet 3 3 06/30/19 24 Discontinued phenytoin extended (DILANTIN) 100 mg ER capsuleIndications :History of seizures take 1 capsule by mouth every morning, 1 capsule every afternoon, and 2 capsules at bedtime. appointment required for refills. 120 Capsule 1 3 07/01/19 24 Discontinued Active Problems Problem Noted Date Diagnosed Date Cerebral aneurysm 01/13/2023 History of bacterial pneumonia 01/10/2023 Hepatic steatosis 06/08/2022 Mixed dyslipidemia 05/16/2022 Overview: ASCVD 10 year risk 5%. Vitamin B12 deficiency 05/16/2022 Vitamin D insufficiency 05/16/2022 Elevated liver enzymes 05/14/2022 Left hemiparesis 01/06/2022 Alcohol use disorder, moderate, dependence 10/19 Depression, major, in remission 05/27/2021 Chronic tension headaches 05/27/2021 History of seizures 10/23/2020 RODNEY (obstructive sleep apnea) 10/23/2020 USAMA (generalized anxiety disorder) 04/07/2016 DDD (degenerative disc disease), cervical 2013 History of migraine 09/19/2012 Dysthymic disorder 06/08/2007 stroke [V17.1] ? after avm repair 09/08/2006 Restless legs syndrome 07/11/2006 Overview: Restless Leg Syndrome Esophageal reflux 06/17/2006 Anxiety 04/01/2006 Insomnia, unspecified 04/01/2006 Overview: Insomnia NOS Chronic lower back pain 04/15/2005 Headache(784.0) 04/15/2005 Memory loss 04/15/2005 Migraine, unspecified, witho ut mention of intractable migraine without mention of status migrainosus 03/08/2003 Overview: LW Onset: 37Zft29 ; Migraine Without Aura Resolved Problems Problem Noted Date Diagnosed Date Resolved Date Pneumonia due to infectious organism 10/20/2021 01/10/2023 Urinary retention 10/20/2021 05/16/2022 Failure to thrive in adult 10/19/2021 0 05/16/2022 Anorexia 10/19/2021 05/16/2022 Mouth ulcer 10/19/2021 05/16/2022 Thrush 10/19/2021 05/16/2022 Alcohol withdrawal 10/19/2021 3 Hypomagnesemia 10/19/2021 05/16/2022 Hypophosphatemia 10/19/2021 05/16/2022 Starvation ketoacidosis 10/14/202104/28 Metabolic acidosis 10/13/2021 Sacral wound 10/13/2021 05/16/2022 High cholesterol 08/30/2013 05/16/2022 Symptomatic menopausal or fe male climacteric states 05/27/2009 05/16/2022 Overview: LW Onset: 02/2008 ; Menopause Nicotine addiction 03/16/2008 3 Other convulsions 09/08/2006 05/27/2021 Late effect of fracture of s kull and face bones 09/08/2006 05/16/2022 Other, mixed, or unspecified nondependent drug abuse, unspecified 04/01/2006 05/16/2022 Overview: codeine, klonopin, soma Unspecified epilepsy without mention 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 05/27/2021 Overview: first malinazure age 20 Pneumonia of left lower lobe due to infectious organism 01/10/2023 Sepsis 05/16/2022 Dyspnea 05/16/2022 Encounters Date Type Department Care Team Description 07/05/2023 [place] [facility] [place] [address] [place] [address] Neelima Shukla, DO Focused Care Management (07/05/23; Generalized anxiety disorder, Mixed dyslipidemia, Normocytic anemia /) 06/29/2023 [place] [facility] [place] [address] [place] [address] Neelima Shukla, Refill Request (Metoprolol Tartrate) 06/29/2023 [place] [facility] [place] [address] [place] [address] Klaus Sandoval MD Refill Request (Phenytoin Extended) 06/28/2023 Telephone [facility] [place] [address] [place] [address] Neelima Shukla, DO Home Care 06/20/2023 Patient Outreach [facility] Care Management - Care Management Navigation/[facility] [address] [place] [address] [address] [facility] (Care Guide Annual Medicare Wellness Visit outreach/) 06/17/2023 Telephone [facility] [place] [address] [place] [address] Neelima Shukla DO Prior Authorization (suvorexant (Belsomra) 20 mg tablet Approved 03/28/2023 - 06/16/2024 [id number]) 05/20/2023 Patient Outreach [facility] Care Management - Advanced Care Team [address] [place] [address] Garima Nathan Medication Management (R/S NO SHOW CMR) 05/13/2023 Patient Outreach [facility] [address] [place] [address] Dallas Blanco, JoanneD Pharmacist Medication Management (Reschedule comprehensive medication review ) 05/02/2023 Travel 04/29/2023 Patient Outreach [facility] - Advanced Care Team [address] [place] [address] Garima Nathan Medication Management (CMR PROVIDER REFERRAL - covered) 04/27/2023 Orders Only [facility] [place] [address] [place] [address] Neelima Shukla DO <No scans attached> 04/24/2023 [place] [facility] [place] [address] [place] [address] Neelima Shukla DO Refill Request (Vitamin D-3) 04/22/2023 Orders [place] [facility] [place] [address] [place] [address] Neelima Shukla DO <No scans attached> 04/22/2023 Telephone [facility] [place] [address] [place] [address] Neelima Shukla DO Form (PHYSICIAN ORDER) 04/21/2023 2:00 PM INVENTORY PLANNER Telemedicine [facility] [address] [place] [address] Jeramie Dsouza, Follow Up; Telehealth 04/05/2023 3:30 PM INVENTORY PLANNER Orders Only [facility] [place] [address] [place] [address] Lab, [facility] from Last 3 Months Immunizations Name Administration Dates Next Due COVID-19 vaccine (Moderna 50mcg/0.5mL) 12YO+ BIVALENT PF, MDV 02/10/2022 COVID-19 vaccine (Pfizer-Bio NTech 30mcg/0.3mL) 12YO+ GIUSEPPE-SUCROSE PF, MDV 10/28/2021 COVID-19 vaccine (Pfizer-Bio NTech 30mcg/0.3mL) PF, MDV 02/23/2021,07/30/2020,07/09/2020 Influenza Virus, Unspecified 03/05/2019, 12/31/2014,12/04/2009,2009,12/23/2008,12/23/2008,01/04/2006,1 ,02/18/2004,02/18/2004 Influenza, IIV4 02/10/2022,,12/10/2019,2018,01/10/2018,11/24/2016,04/07/2016,1 ,01/17/2014 Influenza,CCIIV4 PRESERV FREE 03/05/2019 Pneumococcal Conj 20-valent (Prevnar 20) 02/10/2022 Td (Age >=7 Years) 09/01/2007 Tdap 09/19/2012,01/04/2006 Zoster (Shingrix-RZV, recombinant) 12/10/2019,,03/02/2019 Family History Medical History Relation Name Comments Seizures Other cousin Relation Name Status Comments Brother 1 after seizure Brother 2 Alive Father Alive Mother Alive Other Social History Tobacco Use Types Packs/Day Years Used Date Smoking Tobacco: Former Cigarettes 1 32 0 03/28/1976 - 03/28/2008 Passive Smoke Exposure: Never Smokeless Tobacco: Never Tobacco Cessation:Counseling Given: No Comments:uses losenges Alcohol Use Standard Drinks/Week Comments Yes 3 (1 standard drink = 0.6 oz pure alcohol) Assessed 11/23/22 3 glasses of wine a day to help sleep PHQ-2 Answer Date Recorded PHQ-2 TOTAL SCORE 1 04/21/2023 Social Connections Answer Date Recorded Frequency of Communication with Friends and Fami ly Not on file 01/07/2023 Financial Resource Strain Answer Date R ecorded Difficulty of Paying Living Expenses 3 01/06/2022 Difficulty of Paying Living Expenses Not on file 01/06/2022 Food Insecurity Answer Date Recorded Worried About Running Out of Food in the Last Ye ar 1 01/06/2022 Transportation Needs Answer Date Record ed Lack of Transportation (Medical) 2 01/06/2022 Housing Stability Answer Date Recorded Unable to Pay for Housing in the Last Year 1 01/06/2022 Sex and Gender Information Value Date Recorded Sex Assigned at Female 06/11/2022 6:26 AM CDT Gender Identity Female 06/11/2022 6:26 AM CDT Sexual Orientation Straight 06/11/2022 6: 26 AM CDT Obstetrics History Last Filed Vital Signs Vital Sign Reading Time Taken Comments Blood Pressure 114/78 03/23/2023 2:10 PM INVENTORY PLANNER Pulse 83 03/23/2023 2:10 PM INVENTORY PLANNER Temperature 36.7 ??C (98 ??F) 01/14/2023 7:47 AM CDT Respiratory Rate 16 01/14/2023 7:47 AM CDT Oxygen Saturation 96% 03/23/2023 2:10 PM INVENTORY PLANNER Inhaled Oxygen Concentration - - Weight 72.6 kg (160 lb) 01/13/2023 9:36 AM CDT Height 162.6 cm (5' 4) 01/13/2023 9:36 AM CDT Body Mass Index 27.46 01/13/2023 9:36 AM CDT Plan of Treatment Upcoming Encounters Date Type Department Care Team (Late st Contact Info) Description 07/15/2023 10:00 AM CDT Appointment [facility] Medical Imaging [address] [place] [address] Health Maintenance Due Date Last Done Comments Fecal testing sDNA-FIT ([place] guard) for age 45-75 2002 Mammogram for age 45-75 2002 DEXA/DXA scan for age 65+ 2022 Tetanus booster 09/19/2022 09/19/2012, 0608/2007, 01/04/[address] (for lung CA) ag e 50-80 10/14/2022 10/14/2021 COVID-19 vaccine series ( season) 2022 02/10/2022, 10/28/2021, 02/23/2021, Additional history exists Medicare Wellness for age 65+ 05/14/2023 05/13/2022 Influenza for age 65+ 11/27/2023 02/10/2022 , 02/16/2021, 12/10/2019, Additional history exists BMI (ht and wt on same day) for age 18+ 01/11/2024 01/10/2023, 05/13/2022, 01/20/2022, Additional history exists Depression screening for age 12+ 04/24/2024 04/24/2023, 04/22/2023, 04/22/2023, Additional history exists Lipids for age 45-75 05/13/2027 05/13/2022 Tdap Completed 09/19/2012, 01/04/2006 Zoster (shingles) series for age 50+ Completed 12/10/2019, 12/10/2019, 03/02/2019 Pneumococcal series for age 65+ Completed Hepatitis C screening for ag e 18-79 Completed 05/13/2022 Procedures Procedure Name Priority Date/Time Associated Diagnosis Comments URINALYSIS MICROSCOPIC Routine 04/05/2023 3:51 PM INVENTORY PLANNER Urinary urgency UA W/ SEDIMENT EXAM REFLEXED PER CRITERIA Routine 04/05/2023 3:51 PM INVENTORY PLANNER Urinary urgency LC HCV ANTIBODY RFX TO QUANT PCR Routine 05/13/2022 3:36 PM INVENTORY PLANNER Need for hepatitis C screening test LC LIPID PANEL AND CHOL/HDL RATIO Routine 05/13/2022 3:36 PM INVENTORY PLANNER Screening cholesterol level CT CHEST ABDOMEN PELVIS W Routine 10/14/2021 1:13 PM CDT from Last 3 Months or Most Recently Relevant to Health Maintenance Results * (ABNORMAL) URINALYSIS MICROSCOPIC (04/05/2023 3:51 PM INVENTORY PLANNER) RBC 3-5(A) 0-2, None Seen /HPF 04/05/2023 4:51 PM INVENTORY PLANNER [place] WBC 26-50(A) 0-2, 3-5, None Seen /HPF 04/05/2023 4:51 PM INVENTORY PLANNER [place] BACTERIA Many(A) None Seen, Rare, Few Bacteria/ HPF 04/05/2023 4:51 PM INVENTORY PLANNER [place] EPITHELIAL CELLS Few None Seen, Few Epi/HPF 04/05/2023 4:51 PM INVENTORY PLANNER [place] WHITE CELL CLUMPS Present(A) (none) 04/05/2023 4:51 PM INVENTORY PLANNER [place] Urine URINE SPECIMEN / Unknown Non-Blood / Unknown 04/05/2023 3:51 PM INVENTORY PLANNER 04/05/2023 3:51 PM INVENTORY PLANNER Neelima Shukla DO URINE [place] [address] [place] [address], * (ABNORMAL) UA W/ SEDIMENT EXAM REFLEXED PER CRITERIA (04/05/2023 3:51 PM INVENTORY PLANNER) COLOR Yellow Yellow Color 04/05/2023 4:50 PM INVENTORY PLANNER [place] CLARITY Cloudy(A) Clear Clarity 04/05/2023 4:50 PM INVENTORY PLANNER [place] SPECIFIC GRAVITY,URINE 1.020 1.010, 1.015, 1.020, 1.025 04/05/2023 4:50 PM INVENTORY PLANNER [place] PH,URINE 6.0 6.0, 7.0, 8.0, 5.5, 6.5, 7.5, 8.5 04/05/2023 4:50 PM INVENTORY PLANNER [place] UROBILINOGEN, QUALITATIVE Normal Normal EU/dl 04/05/2023 4:50 PM INVENTORY PLANNER [place] PROTEIN, URINE 30(A) Negative mg/dL 04/05/2023 4:50 PM INVENTORY PLANNER [place] GLUCOSE, URINE Negative Negative mg/dL 04/05/2023 4:50 PM INVENTORY PLANNER [place] KETONES,URINE Negative Negative mg/dL 04/05/2023 4:50 PM INVENTORY PLANNER [place] BILIRUBIN,URI NE Negative Negative 04/05/2023 4:50 PM INVENTORY PLANNER [place] OCCULT BLOOD,URINE Small(A) Negative 04/05/2023 4:50 PM INVENTORY PLANNER [place] NITRITE Positive(A) Negative 04/05/2023 4:50 PM INVENTORY PLANNER [place] LEUKOCYTE ESTERASE Moderate(A) Negative 04/05/2023 4:50 PM INVENTORY PLANNER [place] Urine URINE SPECIMEN / Unknown Non-Blood / Unknown 04/05/2023 3:51 PM INVENTORY PLANNER 04/05/2023 3:51 PM INVENTORY PLANNER Neelima Shukla DO URINE Performing Organization Address City/State/[facility] Co de Phone Number [place] [address] [place] [address], * (ABNORMAL) LC LIPID PANEL AND CHOL/HDL RATIO (05/13/2022 3:36 PM INVENTORY PLANNER) Cholesterol, Total 256(H) 100 - 199 mg/dL 05/15/2022 11:08 AM [facility] Triglycerides 248(H) 0 - 149 mg/dL 05/15/2022 11:08 AM [facility] HDL Cholesterol 87 >39 mg/dL 11:08 AM [facility] VLDL Cholesterol Sourav 43(H) 5 - 40 mg/dL 05/15/2022 11:08 AM [facility] LDL Chol Calc (NIH) 126(H) 0 - 99 mg/dL 05/15/2022 11:[address] [facility] ([facility] T. Chol/HDL Ratio 2.9 0.0 - 4.4 ratio 05/15/2022 11:08 AM [facility] Comment: ?T. Chol/HDL Ratio ?Men ??Women ?1/2 Avg.Risk ??3.4 ?3.3 ?Avg.Risk ??5.0 ?4.4 ? 2X Avg.Risk ??9.6 ?7.1 ? 3X Avg.Risk 23.4 ?? 11.0 Blood BLOOD SPECIMEN / Unknown Venipuncture / Unknown 05/13/2022 3:36 PM INVENTORY PLANNER 05/13/2022 3:36 PM INVENTORY PLANNER Narrative [facility] - 05/15/2022 11:08 AM INVENTORY PLANNER Performed at: ??01 - [facility] [address] [place], [place] ??[id number] Crusher Screen Repairer: Ramses Stanford MD, Phone: ??[phone] Neelima Shukla DO SEND OUTS [facility] ([facility]) [address] [place] [address], * LC HCV ANTIBODY RFX TO QUANT PCR (05/13/2022 3:36 PM INVENTORY PLANNER) HCV Ab Non Reactive Non Reactive 05/15/2022 10:06 PM [facility] PL[facility]NER [facility] Blood BLOOD SPECIMEN / Unknown Venipuncture / Unknown 05/13/2022 3:36 PM INVENTORY PLANNER 05/13/2022 3:36 PM INVENTORY PLANNER Narrative [facility] ([facility] - 05/15/2022 10:06 PM INVENTORY PLANNER Performed at: ??01 - [facility] [address] [place], [place] ??[id number] Crusher Screen Repairer: Ramses Stanford MD, Phone: ??[phone] Neelima Brian Gayla DO LABORATORY [facility] ([facility]) [address] [place] [address], * CT CHEST ABDOMEN PELVIS W (10/14/2021 1:13 PM CDT) Anatomical Region Laterality Modality Abdomen, Pelvis, AORTA, LIVER, SPLEEN, CHEST Computed Tomography 10/14/2021 1:13 PM CDT Impressions 10/14/2021 2:07 PM CDT Hepatic steatosis. Chest, abdomen and pelvis otherwise unremarkable. Specifically, no abnormal masses or adenopathy identified. Narrative 10/14/2021 2:07 PM CDT For Patients: As a result of the 21st Century Cures Act, medical imaging exams and procedure reports are released immediately into your electronic medical record. You may view this report before your referring provider. If you have questions, please contact your health care provider. EXAM: CT CHEST ABDOMEN PELVIS W LOCATION: [facility] MEDICAL IMAGING DATE/TIME: 10/14/2021 1:13 PM INDICATION: Weight loss, rule out malignancy. COMPARISON: None. TECHNIQUE: CT scan of the chest, abdomen, and pelvis was performed following injection of IV contrast. Multiplanar reformats were obtained. Dose reduction techniques were used. CONTRAST: IOHEXOL 350 MG IODINE/ML IV 500 ML BOTTLE: 80mL FINDINGS: LUNGS AND PLEURA: Lungs are clear. No infiltrates or effusions. MEDIASTINUM/AXILLAE: No abnormal mediastinal or hilar adenopathy. No axillary adenopathy. CORONARY ARTERY CALCIFICATION: None. HEPATOBILIARY: Hepatic steatosis. PANCREAS: Normal. SPLEEN: Normal. ADRENAL GLANDS: Normal. KIDNEYS/BLADDER: Normal. BOWEL: Normal. LYMPH NODES: No abnormal masses or adenopathy. VASCULATURE: Unremarkable. PELVIC ORGANS: No abnormal masses or adenopathy. MUSCULOSKELETAL: Normal. Procedure Note Smith Bergman MD - 10/14/2021 For Patients: As a result of the Cures Act, medical imagingexams and procedure reports are released immediately into your electronicmedical record. You may view this report before your referring provider.If you have questions, please contact your health care provider. EXAM: CT CHEST ABDOMEN PELVIS W LOCATION: [facility] MEDICAL IMAGING DATE/TIME: 10/14/2021 1:13 PM INDICATION: Weight loss, rule out malignancy. COMPARISON: None. TECHNIQUE: CT scan of the chest, abdomen, and pelvis was performedfollowing injection of IV contrast. Multiplanar reformats were obtained.Dose reduction techniques were used. CONTRAST: IOHEXOL 350 MG IODINE/ML IV 500 ML BOTTLE: 80mL FINDINGS: LUNGS AND PLEURA: Lungs are clear. No infiltrates or effusions. MEDIASTINUM/AXILLAE: No abnormal mediastinal or hilar adenopathy. Noaxillary adenopathy. CORONARY ARTERY CALCIFICATION: None. HEPATOBILIARY: Hepatic steatosis. PANCREAS: Normal. SPLEEN: Normal. ADRENAL GLANDS: Normal. KIDNEYS/BLADDER: Normal. BOWEL: Normal. LYMPH NODES: No abnormal masses or adenopathy. VASCULATURE: Unremarkable. PELVIC ORGANS: No abnormal masses or adenopathy. MUSCULOSKELETAL: Normal. IMPRESSION: Hepatic steatosis. Chest, abdomen and pelvis otherwise unremarkable.Specifically, no abnormal masses or adenopathy identified. Marilyn Benoit MD CT from Last 3 Months or Most Recently Relevant to Health Maintenance Advance Directives * Full Code (Latest Code Status on File) Date Activated Date Inactivated Comments 01/13/2023 6:22 PM 01/14/2023 3:41 PM Question Answer Comments Code Status Discussion: Reviewed Preferences * Full Code Date Activated Date Inactivated Comments 10/13/2021 11:04 PM 10/20/2021 4:12 PM Question Answer Comments Code Status Discussion: Reviewed Preferences Care Teams Bow Tacker Relationship Specialty [place] [address] [place] [address] PCP - General Family Practice 02/22/22 Deloris Wilson, FILIPPO [address] [place] [address] Registered Nurse 07/05/23 07/05/23
--- OUTSIDE RECORDS SUMMARY | 2023-07-05 14:17 | XMS_ITS | Encounter Summary ---
Author Name Unknown Organization [facility] Address [address] [place] [address]. [place] [address] Care Team Providers Care Lang Path Therapist Name Role Phone Alek Jones MD Unavailable [phone] Neelima Shukla DO Primary Care Provider [phone] Brayden Du MD Unavailable Reason for Visit * Reason Comments Alcohol Intoxication Encounter Details Date Type Department Care Team (Late st Contact Info) Description 06/11/2023 7:17 PM CDT - 06/12/2023 11:01 AM CDT [facility] [address] [place] [id number] [phone] Kaushal Mao MD [facility] [address] [place], [place] [id number] Isma Mohr MD [facility] [address] [place] [address] Darrick Reaves MD [facility] [address] [place], [place] [id number] Alcoholic intoxication without complication (H24) Discharge Disposition: Home or Self Care Social History Tobacco Use Types Packs/Day Years Used Date Smoking Tobacco: Light Smoker Smokeless Tobacco: Never Comments:1 cigarette a day Alcohol Use Standard Drinks/Week Comments Not Currently 0 (1 standard drink = 0.6 oz pur e alcohol) AUDIT-C Answer Date Recorded Q1: How often do you have a drink containing alc ohol? 2-3 times a week 04/04/2019 Q2: How many drinks containi ng alcohol do you have on a typical day when you are drinking? 1 or 2 04/04/2019 Frequency of Binge Drinking Not on file 10/2019 PHQ-2 Answer Date Recorded PHQ-2 Score 2 06/02/2020 Adolescent Education Answer Date Record ed Getting School Help Needed Not on file 12/28 Sex and Gender Information Value Date Recorded Sex Assigned at Female 02/28/2021 1:24 PM LANGUAGE PATHOLOGIST Gender Identity Female 02/28/2021 1:23 PM LANGUAGE PATHOLOGIST Sexual Orientation Straight 02/28/2021 1: 20 PM LANGUAGE PATHOLOGIST documented as of this encounter Last Filed Vital Signs Vital Sign Reading Time Taken Comments Blood Pressure 128/67 06/12/2023 10:29 AM CDT Pulse 126 06/12/2023 10:15 AM CDT Temperature 36.7 ??C (98 ??F) 06/11/2023 8:37 PM CDT Respiratory Rate 15 06/11/2023 7:45 PM CDT Oxygen Saturation 96% 06/12/2023 10:31 AM CDT Inhaled Oxygen Concentration - - Weight - - Height - - Body Mass Index - - documented in this encounter Discharge Instructions * Discharge Instructions* Kaushal Mao MD - 06/11/2023 11:43 PM CDT Discharge Instructions Alcohol Intoxication You have been seen today with alcohol intoxication. This means that you have enough alcohol in yoursystem to impair your ability to mentally and physically function, perhaps to the extent that you were unable to care for yourself. Generally, every Emergency Department visit should have a follow-up clinic visit with either a primary or a specialty clinic/provider. Please follow-up as instructed by your emergency provider today. You may have come to the Emergency Department because of your intoxication, or for another reason, such as because of an injury. No matter what the case is, this visit is a ???red flag?? regarding alcohol use, and you should consider whether your drinking pattern is a problem for you. You may be at risk for alcohol-related problems if: Men: you drink more than 14 drinks per week, or more than 4 drinks per occasion. Women: you drink more than 7 drinks per week or more than 3 drinks per occasion. You have black-outs. You do things you regret while drinking. You have legal problems because of drinking. You have job problems because of drinking (you call in sick to work because of drinking). CAGE Questions Have you ever felt you should cut down on your drinking? Have people annoyed you by criticizing your drinking? Have you ever felt bad or guilty about your drinking? Have you ever had a drink first thing in the morning to steady your nerves or get rid of a hangover(eye massage operator)? If you answer yes to any of the CAGE questions, you may have a problem with alcohol. Return to the Emergency Department if: You become shaky or tremble when you try to stop drinking. You have severe abdominal pain (belly pain). You have a seizure or pass out. You vomit (throw up) blood or have blood in your stool. This may be bright red or it may look like black coffee grounds. You become lightheaded or faint. For further help, contact: Your caregiver. Alcoholics Anonymous (AA). [facility]: [phone] [place] [facility] Central Office: [phone] A drug or alcohol rehabilitation program. You can get information on alcohol resources and groups by calling the number 211 or on any phone. Seek medical care if: You have persistent vomiting. You have persistent pain in any part of your body. You do not feel better after a few days. If you were given a prescription for medicine here today, be sure to read all of the information (including the package insert) that comes with your prescription. This will include important information about the medicine, its side effects, and any warnings that you need to know about. The pharmacist who fills the prescription can provide more information and answer questions you may have about the medicine. If you have questions or concerns that the pharmacist cannot address, please call or return to the Emergency Department. Remember that you can always come back to the Emergency Department if you are not able to see your regular doctor in the amount of time listed above, if you get any new symptoms, or if there is anything that worries you. documented in this encounter Medications at Time of Discharge Medication Sig Dispensed Refills Start Date End Date acetaminophen (TYLENOL) 500 MG tabletIndications:Close d trimalleolar fracture of left ankle, initial encounter Take 2 tablets (1,000 mg) by mouth 3 times daily 0 10/28/2020 calcium carbonate (TUMS) 500 MG chewable tablet Take 1 tablet (500 mg) by mouth daily 0 10/28/2020 cephALEXin (KEFLEX) 500 MG capsule Take 1 capsule (500 mg) by mouth 4 times daily 28 capsule 0 06/06/2023 Cyanocobalamin (VITAMIN B-12 PO) Take 1,000 mcg by mouth daily 0 cyclobenzaprine (FLEXERIL) 5 MG tabletIndications:Rib pain on left side,Thoracic back sprain, initial encounter Take 1-2 tablets (5-10 mg) by mouth 3 times daily as needed for muscle spasms 20 tablet 0 03/09/2021 gabapentin (NEURONTIN) 600 MG tabletIndications:Seizu re disorder (H),Chronic pain disorder,Adjustment disorder with mixed anxiety and depressed mood Take 600 mg by mouth 3 times daily 60 tablet 0 12/31/2014 gabapentin (NEURONTIN) 800 MG tabletIndications:Seizu re disorder (H),Chronic pain disorder,Adjustment disorder with mixed anxiety and depressed mood Take 1 tablet (800 mg) by mouth At Bedtime 30 tablet 0 12/31/2014 hydrocortisone, Perianal, (PROCTOZONE-HC) 2.5 % creamIndications:Pasteuriser Operator al hemorrhoids Place rectally 2 times daily as needed 30 g 1 02/16/2021 Multiple Vitamins-Minerals (CENTRUM SILVER PO) Take 1 tablet by mouth daily 0 nicotine (COMMIT) 2 MG lozengeIndications:Pantera elva dependence with nicotine-induced disorder, unspecified nicotine product type Place 1 lozenge (2 mg) inside cheek every hour as needed for smoking cessation 0 10/28/2020 phenytoin (DILANTIN) 100 MG capsuleIndications:Hist ory of seizures Take 100 mg by mouth 2 times daily Take 1 tablet by mouth in AM, 1 in afternoon at 1700 0 10/23/2020 polyethylene glycol (MIRALAX) 17 GM/Dose powderIndications:Const ipation, unspecified constipation type Take 17 g by mouth daily 510 g 0 10/28/2020 propranolol ER (INDERAL LA) 80 MG 24 hr capsule Take 80 mg by mouth daily 0 rOPINIRole (REQUIP) 0.5 MG tablet Take 1.5 mg by mouth daily 0 05/08/2019 rotigotine (NEUPRO) 2 MG/24HR [address] 1 patch onto the skin daily 0 02/16/2021 sertraline (ZOLOFT) 50 MG tabletIndications:USAMA (generalized anxiety disorder) Take 1 tablet (50 mg) by mouth daily 90 tablet 0 06/30/2021 SUMAtriptan (IMITREX) 100 MG tabletIndications:Histo ry of migraine TAKE 1 TABLET BY MOUTH AT ONSET OF HEADACHE Dr Juan David Garcia DO, neurologist 9 tablet 0 12/31/2014 VITAMIN D PO Take 1,000 Units by mouth daily 0 documented as of this encounter Consult Notes * Alisha Elizabeth - 06/12/2023 9:00 AM CDTAssociated Order(s): CARE MANAGEMENT / SOCIAL WORK IP CONSULT Communications Strategist was asked to meet with patient to coordinate discharging home. Pt uses a wheelchair at baseline and does not have her wheelchair here. Pt's apartment is locked and she does not have keys. Communications Strategist met with patient and discussed situation. [facility]. 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 She has a good friend in the building who helps her as well, this is Damian [phone] and he has a martini to her apartment and gave automotive service writer permission to this automotive service writer to call Damian. Pt reports she wants to go home today and does not want to remain in the hospital. She reports feeling safe to return home. She acknowledges she needs increased supports and is looking into Assisted Living Facilities, however does feel she can return home at this time. Communications Strategist spoke with Damian. He does have a martini however, reports an there is an extra push button lockon the door handle and emergency services locked this when they left with the patient yesterday. Damian reports being unable to open the door and believes the only option is to go through a window intothe apartment. Damian also expressed concern about the pt needing increased supports and that she is working with someone named Sabine on getting into assisted living, however Sabine is out this week. Communications Strategist met with Pt and she acknowledged this additional lock but believes the door can be jimmied open. Communications Strategist discussed the option of calling [employer] Emergency Maintenance for her building and the pt agreed. Communications Strategist called [phone] and spoke to Samreen who took down the request. manager qa Gavino [phone] called shortly later. Explained the situation to him and he indicated that he may need to call and lock maine which would be extra charges the patient would need to pay. Pt and writercalled Gavino back and patient gave consent to call a assistance representative if needed because she needs to get into her apartment. Pt informed this automotive service writer that neighbor Damian is okay with her coming back to his apartment and waiting there until her apartment is accessible. She reports she has a wheelchair in Damian's apartment. Communications Strategist then spoke to patient about increased supports, provided her with her CAD[employer] workers name and number (obtained from [facility] [employer]) [employer], . Communications Strategist encouraged to call [employer] on Tuesday and inform her of the need for increased supports and CUSTODIAL. Communications Strategist informed care team that patient has a safe place to return to while her apartment is unlocked, same building number and unit will be [address] (Damian). Faith Elizabeth [facility], [facility] [employer] Consultant Inpatient Care Coordination [facility] [phone] documented in this encounter ED Notes * Kori Ludwig RN - 06/12/2023 10:47 AM CDT Pt was seen by SW and transport was arranged to Damian (friend)'s house. Pt states that she has a bedin his house and feels comfortable going to his house. Pt was sent via EMS and report was given to the team that picked her up. No further questions from the pt. * Isma Mohr MD - 06/12/2023 6:31 AM CDT Patient evaluated in the ED all evening. She has not been observed for over 11 hours. She is able to wake up and have a normal conversation with me and is clinically sober. She denies any injuries. Evaluation including labs reviewed. Vital signs are stable within normal limits. She is ready for discharge to home. S EMS transfer will be arranged given her wheelchair dependence Isma Mohr MD 06/12/23 0632 Isma Mohr MD 06/12/23 0632 * Carmelita Ivy RN - 06/12/2023 5:17 AM CDT Pt changed due to incontinence, brief and purewick placed. Bed sheets changed. * Emerald Prado RN - 06/11/2023 11:40 PM CDT Bed: ED14 Expected date: Expected time: Means of arrival: Comments: 32 * Christin Mueller RN - 06/11/2023 7:17 PM CDT Bed: ED32 Expected date: Expected time: Means of arrival: Comments: [id number] - ETA 19:15 * Kaushal Mao MD - 06/11/2023 7:17 PM CDT History Chief Complaint: Alcohol Intoxication The history is provided by the patient. The history is limited by the condition of the patient. Sultana Mueller is a 67 year old female with a history of alcohol abuse who presents with alcohol intoxication. History is limited due to acute intoxication. The patient endorses that she was drinking today. She lives alone in an apartment. She states that she had a fall today, but then denies having any falls. She does not drink everyday and has in the past gotten shaky from not drinking. Michas not know if she has had a withdrawal seizure. She denies any smoking or illegal drug use as well as thoughts of self harm or suicide, thoughts of hurting others, and hearing or seeing things that others do not. Independent Historian: None - Patient Only Review of External Notes: See MDM Medications: Cehpalexin Cyclobenzaprine Gabapentin Nicotine Phenytoin Propranolol ER Ropinirole Rotigotine Sertraline Sumatriptan Aspirin Metoprolol tartrate Folic acid Pregabalin Suvorexant Past Medical History: Adjustment disorder with mixed anxiety and depressed mood Alcohol abuse, episodic drinking behavior Depressive disorder Gastro-oesophageal reflux disease Migraine Numbness and tingling Chronic pain Seizure disorder Seizures Sleep apnea Cerebral aneurysm Bacterial pneumonia Elevated liver enzymes Left hemiparesis Depression, major, in remission Obstructibe sleep apnea Generalized anxiety disorder DDD, cervical Dysthymic disorder Anxiety Insomnia Memory loss Past Surgical History: Back surgery Carpal tunnel release Cervical fusion AVM removal Intracranial aneurysm repair Tonsillectomy Cerebral aneurysm repair Removal of tonsils IR carotid angiogram Open reduction internal fixation ankle Open reduction internal fixation rodding intramedullary humerus ZZC brain AVM surg Physical Exam Patient Vitals for the past 24 hrs: BP Temp Pulse Resp SpO2 06/11/232036 -- 98 ??F (36.7 ??C) -- -- -- 06/11/231944 -- -- -- 15 -- 06/11/231943 (!) 144/62 -- -- -- -- 06/11/231936 -- -- -- -- 98 % 06/11/231935 -- -- -- -- 98 % 06/11/231929 (!) 144/62 -- 106 -- -- 06/11/231925 (!) 112/102 -- (!) 236 -- 97 % Physical Exam Constitutional: Well developed, somewhat chronic ill, nontox appearance, clinically intoxicated Head: Atraumatic. Mouth/Throat: Oropharynx is clear and moist. Neck: no stridor, no C-spine tenderness Eyes: no scleral icterus Cardiovascular: RRR, 2+ bilat radial pulses Pulmonary/Chest: nml resp effort, Clear and equal BS bilat Abdominal: ND, soft, NT, no rebound or guarding Back: No T or L-spine tenderness Ext: Warm, well perfused, no edema Neurological: A&O, symmetric facies Skin: Skin is warm and dry. Psychiatric: Behavior is normal. Thought content normal. Nursing note and vitals reviewed. Emergency Department Course Laboratory: Labs Ordered and Resulted from Time of ED Arrival to Time of ED Departure BASIC METABOLIC PANEL - Abnormal Result Value Sodium 141 Potassium 3.6 Chloride 96 (*) Carbon Dioxide (CO2) 23 Anion Gap 22 (*) Urea Nitrogen 4.3 (*) Creatinine 0.41 (*) GFR Estimate >90 Calcium 8.2 (*) Glucose 101 (*) ETHYL ALCOHOL LEVEL - Abnormal Alcohol ethyl 0.35 (*) CBC WITH PLATELETS AND DIFFERENTIAL - Abnormal WBC Count 7.2 RBC Count 3.83 Hemoglobin 10.9 (*) Hematocrit 33.6 (*) MCV 88 MCH 28.5 MCHC 32.4 RDW 18.0 (*) Platelet Count 343 % Neutrophils 57 % Lymphocytes 32 % Monocytes 8 % Eosinophils 2 % Basophils 1 % Immature Granulocytes 0 NRBCs per 100 WBC 0 Absolute Neutrophils 4.1 Absolute Lymphocytes 2.3 Absolute Monocytes 0.6 Absolute Eosinophils 0.1 Absolute Basophils 0.1 Absolute Immature Granulocytes 0.0 Absolute NRBCs 0.0 Emergency Department Course & Assessments: Interventions: Medications nicotine (COMMIT) lozenge 2 mg (2 mg Buccal $Given 06/11/23 2332) sodium chloride 0.9% BOLUS 1,000 mL (0 mLs Intravenous Stopped 06/11/23 0095) Independent Interpretation (X-rays, CTs, rhythm strip): See MDM Assessments/Consultations/Discussion of Management or Tests: ED Course as of 06/11/23 2343 Sat Jun 11, 2023 194 I examined the patient and obtained history. Social Determinants of Health affecting care: See MDM Disposition: Care of the patient was transferred to my colleague Dr. Mohr pending clinic sobriety. Impression & Plan Medical Decision Makin67 year old female presenting w/ intoxication Social determinants affecting patient's health include: Age and history of alcohol abuse/dependenceincreasing risk for presentation to the emergency department I reviewed medical records from ED visit on 06/06/2023, for the medicine office visit on 03/23/2023 DDx includes intoxication, alcohol dependence, electrolyte abnormality, dehydration. No evidence oftrauma on history or exam therefore imaging deferred. Labs significant for elevated EtOH level and minimal anemia otherwise reassuring. Interventions as noted above. Patient was signed out in stable c ondition awaiting clinical sobriety. There is a question whether the patient can reenter her apartment in the next 24 to 48 hours given his LOC. Plan to reassess social situation the patient is clinically sober. Diagnosis: ICD-10-CM 1. Alcoholic intoxication without complication (H24) F10.920 Discharge Medications: New Prescriptions No medications on file Scribe Disclosure: I, Jaradguzman Preston, am serving as a scribe at 7:33 PM on 06/11/2023 to document services personallyperformed by Kaushal Mao MD based on my observations and the provider's statements to me. 06/11/2023 Kaushal Mao MD Vaughn, Christopher E, MD 06/11/23 6910 * Darrick Reaves MD - 06/11/2023 7:17 PM CDT Patient was endorsed to me at end of shift by Dr. Mohr. Patient presented with alcohol intoxication. She lives alone in an apartment and is wheelchair dependent. Her medical workup was unremarkableand she was observed until she was clinically sober. Plan was for discharge. However, patient's friend Gavino called the ED and expressed concern about the patient's living situation. He is concerned about the possibility that the patient's home comfort advisor may have quit this week and patient is not able to adequately care for herself. Patient denies this. We did consult social work and they investigatedas well. Social work notes that the home comfort advisor only comes for approximately 5 hours a day and the patient is otherwise able to care for self. Social work also talked with Gavino and investigated the patient's outpatient resources more and feels that the patient is appropriate to go home at this time.Patient will go to Gavino's apartment until maintenance can get the patient back into her own apartment. See social work consult note for additional information. Darrick Reaves MD 06/12/23 1030 documented in this encounter Plan of Treatment Not on file documented as of this encounter Procedures Procedure Name Priority Date/Time Associated Diagnosis Comments CBC WITH PLATELETS AND DIFFERENTIAL STAT 06/11/2023 8:53 PM CDT CBC WITH PLATELETS & DIFFERENTIAL STAT 06/11/2023 8:53 PM CDT ETHYL ALCOHOL LEVEL STAT 06/11/2023 8 :53 PM CDT BASIC METABOLIC PANEL STAT 06/11/2023 8:53 PM CDT documented in this encounter Results * (ABNORMAL) CBC with platelets and differential (06/11/2023 8:53 PM CDT) WBC Count 7.2 4.0 - 11.0 10e3/uL 06/11/2023 9:03 PM CDT [facility] RBC Count 3.83 3.80 - 5.20 10e6/uL 06/11/2023 9:03 PM CDT [facility] Hemoglobin 10.9(L) 11.7 - 15.7 g/dL 06/11/2023 9:03 PM CDT [facility] Hematocrit 33.6(L) 35.0 - 47.0 % 06/11/2023 9:03 PM CDT [facility] MCV 88 78 - 100 fL 06/11/2023 9:03 PM CDT [facility] MCH 28.5 26.5 - 33.0 pg 06/11/2023 9:03 PM CDT [facility] MCHC 32.4 31.5 - 36.5 g/dL 06/11/2023 9:03 PM CDT [facility] RDW 18.0(H) 10.0 - 15.0 % 06/11/2023 9:03 PM CDT [facility] Platelet Count 343 150 - 450 10e3/uL 06/11/2023 9:03 PM CDT [facility] % Neutrophils 57 % 06/11/2023 9:03 PM CDT [facility] % Lymphocytes 32 % 06/11/2023 9:03 PM CDT [facility] % Monocytes 8 % 06/11/2023 9:03 PM CDT [facility] % Eosinophils 2 % 06/11/2023 9:03 PM CDT [facility] % Basophils 1 % 06/11/2023 9:03 PM CDT [facility] % Immature Granulocytes 0 % 06/11/2023 9:03 PM CDT [facility] NRBCs per 100 WBC 0 <1 /100 024 9:03 PM CDT [facility] Absolute Neutrophils 4.1 1.6 - 8.3 10e3/uL 06/11/2023 9:03 PM CDT [facility] Absolute Lymphocytes 2.3 0.8 - 5.3 10e3/uL 06/11/2023 9:03 PM CDT [facility] Absolute Monocytes 0.6 0.0 - 1.3 10e3/uL 06/11/2023 9:03 PM CDT [facility] Absolute Eosinophils 0.1 0.0 - 0.7 10e3/uL 06/11/2023 9:03 PM CDT [facility] Absolute Basophils 0.1 0.0 - 0.2 10e3/uL 06/11/2023 9:03 PM CDT [facility] Absolute Immature Granulocytes 0.0 <=0.4 10e3/uL 06/11/2023 9:03 PM CDT [facility] Absolute NRBCs 0.0 10e3/uL 06/11/2023 9:03 PM CDT [facility] Blood STRUCTURE OF RIGHT HAND / Unknown Venipuncture / Unknown 06/11/2023 8:53 PM CDT 06/11/2023 9:00 PM CDT Kaushal Mao MD LAB - BLOOD [facility] Organization Address City/State/ZIP Co de Phone Number [facility] [address] Lab (1st floor, no room number) [place] [address], [facility] * (ABNORMAL) Alcohol level blood (06/11/2023 8:53 PM CDT) Alcohol ethyl 0.35(HH) <=0.01 g/dL 06/11/2023 9:38 PM CDT [facility] Blood STRUCTURE OF RIGHT HAND / Unknown Venipuncture / Unknown 06/11/2023 8:53 PM CDT 06/11/2023 9:00 PM CDT Kaushal Mao MD LAB - BLOOD [facility] [address] Lab (1st floor, no room number) [place] [address], [facility] * (ABNORMAL) Basic metabolic panel (BMP) (06/11/2023 8:53 PM CDT) [facility] Sodium 141 135 - 145 mmol/L 06/11/2023 9:51 PM CDT LABORATORY Comment:Reference intervals for this test were updated on 12/21/2022 to more accurately reflect our healthy population. There may be differences in the flagging of prior results with similar values performed with this method. Interpretation of those prior results can be made in the context of the updated reference intervals. Potassium 3.6 3.4 - 5.3 mmol/L 06/11/2023 9:51 PM CDT LABORATORY Chloride 96(L) 98 - 107 mmol/L 06/11/2023 9:51 PM CDT LABORATORY Carbon Dioxide (CO2) 23 22 - 29 mmol/L 06/11/2023 9:51 PM CDT [facility] Anion Gap 22(H) 7 - 15 mmol/L 06/11/2023 9:51 PM CDT LABORATORY Urea Nitrogen 4.3(L) 8.0 - 23.0 mg/dL 06/11/2023 9:51 PM CDT LABORATORY Creatinine 0.41(L) 0.51 - 0.95 mg/dL 06/11/2023 9:51 PM CDT LABOR[facility]ORY GFR Estimate >90 >60 mL/min/1. 73m2 06/11/2023 9:51 PM CDT LABORATORY Calcium 8.2(L) 8.8 - 10.2 mg/dL 06/11/2023 9:51 PM CDT LABORATORY Glucose 101(H) 70 - 99 mg/dL 06/11/2023 9:51 PM CDT [facility] Blood STRUCTURE OF RIGHT HAND / Unknown Venipuncture / Unknown 06/11/2023 8:53 PM CDT 06/11/2023 9:00 PM CDT Kaushal Mao MD LAB - BLOOD [facility] Organization Address City/State/ZIP Co de Phone Number [facility] [address] [facility] Lab (1st floor, no room number) [place] [address], [facility] documented in this encounter Visit Diagnoses Diagnosis Alcoholic intoxication without complication (H24) documented in this encounter Administered Medications Inactive Administered Medications - up to 3 most recent administrations Medication Order MAR Action Action Date Dose Rate Site nicotine (COMMIT) lozenge 2 mg 2 mg, Buccal, EVERY 1 HOUR PRN, nicotine withdrawal symptoms, Starting on 06/11/23 at 2331, Allow lozenge to dissolve completely. Do Not Bite, Chew, or Swallow. $Given 06/12/2023 10:27 AM CDT 2 mg $Given 06/12/2023 8:33 AM CDT 2 mg $Given 06/12/2023 6:51 AM CDT 2 mg sodium chloride 0.9% BOLUS 1,000 mL Intravenous, 1,000 mL, ONCE, at 1,000 mL/hr, Administer over 1 Hours, On 06/11/23 at 2040, For 1 dose $New Bag 06/11/2023 8:57 PM CDT 1,000 mLs 1000 mL/hr documented in this encounter Active and Recently Administered Medications Times are shown in CDT. Scheduled Medication Order 06/10/2023 06/11/2023 06/12/2023 sodium chloride 0.9% BOLUS 1,000 mL (COMPLETED) Intravenous, 1,000 mL, ONCE, at 1,000 mL/hr, Administer over 1 Hours, On 06/11/23 at 2040, For 1 dose 2056 ($New Bag - Provider: Yamileth Oliveros RN)2325 (Stopped - Provider: Yamileth Oliveros RN) PRN Medication Order 06/10/2023 06/11/2023 06/12/2023 nicotine (COMMIT) lozenge 2 mg 2 mg, Buccal, EVERY 1 HOUR PRN, nicotine withdrawal symptoms, Starting on 06/11/23 at 2331, Allow lozenge to dissolve completely. Do Not Bite, Chew, or Swallow. 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
--- OUTSIDE RECORDS SUMMARY | 2023-07-05 14:17 | XMS_ITS | Referral Summary ---
Author Name Unknown Organization [facility] Address [address] [place] [address]. 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 Name Role Phone Alek Jones MD Unavailable Neelima Shukla DO Primary Care Provider [phone] Brayden Du MD Unavailable Encounters Date Type Department Care Team Description 07/01/2023 Transcribe Orders GENERIC EXTERNAL DATA DEPARTMENT Provider, Generic External Data Alcohol use, unspecified with other alcohol-induced disorder (H) (Primary Dx) 06/23/2023 Medical Correspondence [facility] [address] [place] [phone] Scan, Non-Provider 06/11/2023 7:17 PM CDT - 06/12/2023 11:01 AM CDT Emergency [facility] Emergency Dept [address] [place] [phone] Kaushal Mao MD AmdIsma posey MD Goodwin, Shaun M, MD Alcoholic intoxication without complication (H24) Discharge Disposition: Home or Self Care 06/11/2023 Travel 06/08/2023 Telephone [facility] Emergency Dept [address] [place] [phone] Adi Edmond RN Results 06/06/2023 10:35 AM CDT - 06/06/2023 7:56 PM CDT Emergency [facility] Emergency Dept [address] [place] [phone] Kimmy Cisneros, Fall, initial encounter; Hip pain, left; Urinary tract infection without hematuria, site unspecified; Alcoholic intoxication without complication (H24); Iron deficiency anemia, unspecified iron deficiency anemia type Discharge Disposition: Home or Self Care from Last 3 Months Allergies Active Allergy Reactions Criticality Noted Date Comments Propoxyphene Napsylate 09/19/2012 Propoxyphene 09/02/2014 Other reaction(s): Seizures Medications Medication Sig Dispensed Refills Start Date End Date Status Multiple Vitamins-Minerals (CENTRUM SILVER PO) Take 1 tablet by mouth daily 0 Active gabapentin (NEURONTIN) 600 MG tabletIndications :Seizure disorder (H),Chronic pain disorder,Adjustme nt disorder with mixed anxiety and depressed mood Take 600 mg by mouth 3 times daily 60 tablet 0 12/31/2014 Active gabapentin (NEURONTIN) 800 MG tabletIndications :Seizure disorder (H),Chronic pain disorder,Adjustme nt disorder with mixed anxiety and depressed mood Take 1 tablet (800 mg) by mouth At Bedtime 30 tablet 0 12/31/2014 Active SUMAtriptan (IMITREX) 100 MG tabletIndications :History of migraine TAKE 1 TABLET BY MOUTH AT ONSET OF HEADACHE Dr Juan David Garcia DO, neurologist 9 tablet 0 12/31/2014 Active rOPINIRole (REQUIP) 0.5 MG tablet Take 1.5 mg by mouth daily 0 05/08/2019 Active VITAMIN D PO Take 1,000 Units by mouth daily 0 Active Cyanocobalamin (VITAMIN B-12 PO) Take 1,000 mcg by mouth daily 0 Active phenytoin (DILANTIN) 100 MG capsuleIndication s:History of seizures Take 100 mg by mouth 2 times daily Take 1 tablet by mouth in AM, 1 in afternoon at 1700 0 10/23/2020 Active propranolol ER (INDERAL LA) 80 MG 24 hr capsule Take 80 mg by mouth daily 0 Active nicotine (COMMIT) 2 MG lozengeIndication s:Nicotine dependence with nicotine-induced disorder, unspecified nicotine product type Place 1 lozenge (2 mg) inside cheek every hour as needed for smoking cessation 0 10/28/2020 Active calcium carbonate (TUMS) 500 MG chewable tablet Take 1 tablet (500 mg) by mouth daily 0 10/28/2020 Active polyethylene glycol (MIRALAX) 17 GM/Dose powderIndications :Constipation, unspecified constipation type Take 17 g by mouth daily 510 g 0 10/28/2020 Active Additional Information Patient taking differently:17 g OralDAILY PRN, Reported on 11/03/2020 acetaminophen (TYLENOL) 500 MG tabletIndications :Closed trimalleolar fracture of left ankle, initial encounter Take 2 tablets (1,000 mg) by mouth 3 times daily 0 10/28/2020 Active rotigotine (NEUPRO) 2 MG/24HR [address] 1 patch onto the skin daily 0 02/16/2021 Active hydrocortisone, Perianal, (PROCTOZONE-HC) 2.5 % creamIndications: External hemorrhoids Place rectally 2 times daily as needed 30 g 1 02/16/2021 Active cyclobenzaprine (FLEXERIL) 5 MG tabletIndications :Rib pain on left side,Thoracic back sprain, initial encounter Take 1-2 tablets (5-10 mg) by mouth 3 times daily as needed for muscle spasms 20 tablet 0 03/09/2021 Active sertraline (ZOLOFT) 50 MG tabletIndications :USAMA (generalized anxiety disorder) Take 1 tablet (50 mg) by mouth daily 90 tablet 0 06/30/2021 Active cephALEXin (KEFLEX) 500 MG capsule Take 1 capsule (500 mg) by mouth 4 times daily 28 capsule 0 06/06/2023 Active cephALEXin (KEFLEX) 500 MG capsule Take 1 capsule (500 mg) by mouth 4 times daily for 7 days 28 capsule 0 06/06/2023 06/06/19 24 Discontinued Active Problems Problem Noted Date Diagnosed Date Trimalleolar fracture of ank le, closed, left, initial encounter 10/24/2020 RODNEY (obstructive sleep apnea) 10/23/2020 History of seizures 10/23/2020 Insomnia, unspecified type 10/23/2020 Migraine without aura and wi thout status migrainosus, not intractable 11/24/2016 USAMA (generalized anxiety disorder) 04/07/2016 Major depressive disorder, recurrent episode, mo derate 04/07/2016 Restless legs syndrome (RLS) 04/07/2016 Chemical dependency 07/30/2014 Overview: Klonopin detox Polysubstance abuse 07/29/2014 Fracture of left humerus 01/17/2014 Humerus shaft fracture 01/16/2014 High cholesterol 08/30/2013 Lesion of sciatic nerve 08/30/2013 DDD (degenerative disc disease), cervical 2013 Chronic pain disorder 08/30/2013 ACP (advance care planning) 07/24/2013 Overview: Advance Care Planning 05/02/2015: ACP Review of Chart / Resources Provided: Reviewed chart for advance care plan. Sultana Wallace Mueller has no plan or code status on file. Discussed available resources and provided with information. Confirmed code status reflects current choices pending further ACP discussions. Confirmed/documented legally designated decision maker(s). 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 Last seizure 2008 Pt on dilantin and sees neurology at [facility] History of migraine 09/19/2012 Resolved Problems Problem Noted Date Diagnosed Date Resolved Date Polysubstance abuse 09/04/2013 07/25/19 15 Alcohol abuse, episodic drinking behavior 08/30/2013 07/24/2014 Adjustment disorder with mix ed anxiety and depressed mood 09/19/2012 04/07/2016 Overview: Dxed at 20 y0 Immunizations Name Administration Dates Next Due COVID-19 MONOVALENT 12+ (Pfizer) 07/30/2020,06/26 Influenza Vaccine >6 months,quad, PF ,12/10/2019,03/05/2019,2017,11/24/2016,04/07/2016,12/31/2014,1 TDAP Vaccine (Adacel) 01/04/2006 TDAP Vaccine (Boostrix) 09/19/2012 Zoster recombinant adjuvante d (SHINGRIX) 12/10/2019,03/02/2019 Social History Tobacco Use Types Packs/Day Years [...] Sex Assigned at Female 02/28/2021 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 Gender Identity Female 02/28/2021 1:23 PM [employer]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 Sexual Orientation Straight 02/28/2021 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 Last Filed Vital Signs Vital Sign Reading Time Taken Comments Blood Pressure 128/67 06/12/2023 10:29 AM CDT Pulse 126 06/12/2023 10:15 AM CDT Temperature 36.7 ??C (98 ??F) 06/11/2023 8:37 PM CDT Respiratory Rate 15 06/11/2023 7:45 PM CDT Oxygen Saturation 96% 06/12/2023 10:31 AM CDT Inhaled Oxygen Concentration - - Weight 72.6 kg (160 lb) 03/07/2023 5:06 PM [employer]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 - [id number] Implanted:Qty: 1 on 10/24/2020 by Quentin Pritchett MD at [facility] Metallic Hardware/An chor Left: Ankle SYNTHES-STRATEC 202.214 / / [id number] Imp Scr Syn Lcp Dist 2.7x16mm Self Tap Ss 202.216 - [id number] Implanted:Qty: 3 on 10/24/2020 by Quentin Pritchett MD at [facility] Metallic Hardware/An chor Left: Ankle SYNTHES-STRATEC 202.216 / / [id number] Imp Scr Syn Cortex 2.7x32mm Self Tap Ss 202.832 - [id number] Implanted:Qty: 1 on 10/24/2020 by Quentin Pritchett MD at [facility] Metallic Hardware/An chor Left: Ankle SYNTHES-STRATEC 202.832 / / [id number] L2021 Imp Scr Syn 3.5x12mm Locking W/Stardrive Ss 212.102 - [id number] Implanted:Qty: 2 on 10/24/2020 by Quentin Pritchett MD at [facility] Metallic Hardware/An chor Left: Ankle SYNTHES-STRATEC 212.102 / / [id number] L2021 Imp Scr Syn Cortex 3.5x16mm Self Tap Ss 204.816 - [id number] Implanted:Qty: 1 on 10/24/2020 by Quentin Pritchett MD at [facility] Metallic Hardware/An chor Left: Ankle SYNTHES-STRATEC 204.816 / / [id number] L2021 Imp Scr Syn Cortex 3.5x28mm Self Tap Ss 204.828 - [id number] Implanted:Qty: 1 on 10/24/2020 by Quentin Pritchett MD at [facility] Metallic Hardware/An chor Left: Ankle SYNTHES-STRATEC 204.828 / / [id number] L2021 Imp Scr Syn Cortex 3.5x38mm Self Tap Ss 204.838 - [id number] Implanted:Qty: 1 on 10/24/2020 by Quentin Pritchett MD at [facility] Metallic Hardware/An chor Left: Ankle SYNTHES-STRATEC 204.838 / / [id number] L2021 Imp Scr Syn Can 4.0x40mm Long Thrd Ss 207.740 - [id number] Implanted:Qty: 1 on 10/24/2020 by Quentin Pritchett MD at [facility] Metallic Hardware/An chor Left: Ankle SYNTHES-STRATEC 207.740 / / [id number] L2021 Imp Wire Margarita 0.045x4 78.2019 - [id number] Implanted:Qty: 1 on 10/24/2020 by Quentin Pritchett MD at [facility] Wire Left: Ankle G SOURCE 78.202 / / 4.0mm Ti Locking Screww/T25 Implanted:Qty: 1 on 01/16/2014 by Bayron Can MD at [facility] Left: Humerus SYNTHES 08/27/2019 04.005.4 44S / / [id number] 4.5mm Ti Multiloc Screw 42mm Implanted:Qty: 1 on 01/16/2014 by Bayron Can MD at [facility] Left: Humerus SYNTHES 03/28/2022 04.019.0 42S / / [id number] 4.5mm Ti Mulitloc Screw 38mm Implanted:Qty: 1 on 01/16/2014 by Bayron Can MD at [facility] Left: Humerus SYNTHES 02/25/2022 04.019.0 38S / / [id number] 4.0mm Ti Locking Screw 24mm Implanted:Qty: 1 on 01/16/2014 by Bayron Can MD at [facility] Left: Humerus SYNTHES 08/26/2022 04.005.4 14S / / [id number] 4.0mm Ti Locking Screw 26mm Implanted:Qty: 1 on 01/16/2014 by Bayron Can MD at [facility] Left: Humerus SYNTHES 12/26/2021 04.005.4 16S / / [id number] Ti Multiloc End Cap Implanted:Qty: 1 on 01/16/2014 by Bayron Can MD at [facility] Left: Humerus SYNTHES 11/26/2022 04.019.0 00S / / [id number] 4.5mmti Multiloc Screw 38mm Implanted:Qty: 1 on 01/16/2014 by Bayron Can MD at [facility] Left: Humerus SYNTHES 02/25/2023 04.019.0 38S / / [id number] 3.5mm Lcp Hook Plate Implanted:Qty: 1 on 10/24/2020 by Quentin Pritchett MD at [facility] Left: Ankle SYNTHES 02.113.1 03S / / [id number] 2.7mm/3.5mm Lcp Posterolateral Distal Fibula Plates Implanted:Qty: 1 on 10/24/2020 by Quentin Pritchett MD at [facility] Left: Ankle SYNTHES 02.112.1 2 [id number] Procedures Procedure Name Priority Date/Time Associated Diagnosis Comments CBC WITH PLATELETS & DIFFERENTIAL STAT 06/11/2023 8:53 PM CDT CBC WITH PLATELETS AND DIFFERENTIAL STAT 06/11/2023 8:53 PM CDT ETHYL ALCOHOL LEVEL STAT 06/11/2023 8 :53 PM CDT BASIC METABOLIC PANEL STAT 06/11/2023 8:53 PM CDT URINE CULTURE STAT 06/06/2023 1:37 PM CDT ROUTINE UA WITH MICROSCOPIC REFLEX TO CULTURE STAT 06/06/2023 1:37 PM CDT XR PELVIS AND HIP LEFT 1 VIEW STAT 06/06/2023 1:[address] HEAD W/O CONTRAST STAT 06/06/2023 12:27 PM CDT XR CHEST 2 VIEWS STAT 06/06/2023 12:1 4 PM CDT US LOWER EXTREMITY VENOUS DUPLEX LEFT STAT 06/06/2023 12:03 PM CDT EKG 12-LEAD, TRACING ONLY STAT 06/06/2023 11:14 AM CDT CBC WITH PLATELETS & DIFFERENTIAL STAT 06/06/2023 11:04 AM CDT CK TOTAL Add-On 06/06/2023 11:04 AM CDT EXTRA BLOOD CULTURE BOTTLE STAT 06/06/2023 11:04 AM CDT EXTRA GREEN TOP (LITHIUM HEPARIN) ON ICE STAT 06/06/2023 11:04 AM CDT EXTRA RED TOP TUBE STAT 06/06/2023 11 :04 AM CDT EXTRA BLUE TOP TUBE STAT 06/06/2023 1 1:04 AM CDT CBC WITH PLATELETS AND DIFFERENTIAL STAT 06/06/2023 11:04 AM CDT EXTRA TUBE STAT 06/06/2023 11:04 AM CDT EXTRA TUBE STAT 06/06/2023 11:04 AM CDT NT PROBNP INPATIENT STAT 06/06/2023 1 1:04 AM CDT TROPONIN T, HIGH SENSITIVITY STAT 06/06/2023 11:04 AM CDT ETHYL ALCOHOL LEVEL STAT 06/06/2023 1 1:04 AM CDT MAGNESIUM STAT 06/06/2023 11:04 AM CDT COMPREHENSIVE METABOLIC PANEL STAT 06/06/2023 11:04 AM CDT from Last 3 Months Results * (ABNORMAL) CBC with platelets and differential (06/11/2023 8:53 PM CDT) Only the most recent of2 resultswithin the time period is included. WBC Count 7.2 4.0 - 11.0 10e3/uL [...] CDT Kaushal Mao MD LAB - BLOOD ORDMaykel PHILLIPS Performing Organization Address [facility]/ZIP Co de Phone Number LABORATORY [facility] [address] Lab (1st floor, no room number) [address] * (ABNORMAL) Alcohol level blood (06/11/2023 8:53 PM CDT) Only the most recent of2 resultswithin the time period is included. Alcohol ethyl 0.35(HH) <=0.01 g/dL 06/11/2023 9:38 PM CDT [facility] LABORATORY Blood STRUCTURE OF RIGHT HAND / Unknown Venipuncture / Unknown 06/11/2023 8:53 PM CDT 06/11/2023 9:00 PM CDT Kaushal Mao MD LAB - BLOOD ORDE ALAN Performing Organization Address [facility] Co de Phone Number LABORATORY [facility] [address] Lab (1st floor, no room number) [address] * (ABNORMAL) Basic metabolic panel (BMP) (06/11/2023 8:53 PM CDT) Sodium 141 135 - 145 mmol/L 06/11/2023 9:51 PM CDT [facility] LABORATORY Comment:Reference intervals for this test were [...] CDT Kaushal Mao MD LAB - BLOOD ORDE [facility] Organization Address City/State/ZIP Co de Phone Number LABORATORY [facility] [address] [facility] Lab (1st floor, no room number) [place] [address], [facility] * (ABNORMAL) UA with Microscopic reflex to Culture (06/06/2023 1:37 PM CDT) Color Urine Yellow Colorless, Straw, Light Yellow, Yellow 06/06/2023 1:53 PM CDT LABORATORY Appearance Urine Slightly Cloudy(A) Clear 06/06/2023 1:53 PM CDT LABORATORY Glucose Urine Negative Negative mg/dL 06/06/2023 1:53 PM CDT LABORATORY Bilirubin Urine Negative Negative 1:53 PM CDT LABORATORY Ketones Urine Trace(A) Negative mg/dL 06/06/2023 1:53 PM CDT [facility] LABORATORY Specific [place] Urine 1.020 1.003 - 1.035 06/06/2023 1:53 PM CDT [facility] LABORATORY Blood Urine Small(A) Negative 06/06/2023 1:53 PM CDT [facility] LABORATORY pH Urine 5.0 5.0 - 7.0 06/06/2023 1:53 PM CDT [facility] LABORATORY Protein Albumin Urine 30(A) Negative mg/dL 06/06/2023 1:53 PM CDT [facility] LABORATORY Urobilinogen Urine Normal Normal, 2.0 mg/dL 06/06/2023 1:53 PM CDT [facility] LABORATORY Nitrite Urine Negative Negative 06/06/2023 1:53 PM CDT [facility] LABORATORY Leukocyte Esterase Urine Moderate(A) Negative 06/06/2023 1:53 PM CDT LABORATORY Bacteria Urine Many(A) None Seen /HPF 06/06/2023 1:53 PM CDT LABORATORY Mucus Urine Present(A) None Seen /LPF 06/06/2023 1:53 PM CDT LABORATORY RBC Urine 4(H) <=2 /HPF 06/06/2023 1:53 PM CDT LABORATORY WBC Urine 21(H) <=5 /HPF 06/06/2023 1:53 PM CDT [facility] LABORATORY Squamous Epithelials Urine 7(H) <=1 /HPF 06/06/2023 1:53 PM CDT LABORATORY Urine MID-STREAM URINE SPECIMEN / Unknown Non-blood Collection / Unknown 06/06/2023 1:37 PM CDT 06/06/2023 1:42 PM CDT Narrative LABORATORY - 06/06/2023 1:53 PM CDT Urine Culture ordered based on laboratory criteria Kimmy Cisneros DO LAB - URINE ORDERABL ES LABORATORY [facility] [address] Lab (1st floor, no room number) [place] [address] * (ABNORMAL) Urine Culture (06/06/2023 1:37 PM CDT) Culture 50,000-100,000 CFU/mL Escherichia coli(A) 06/07/2023 9:45 PM CDT [facility] LABORATORY Culture >100,000 CFU/mL Urogenital tish 06/07/2023 9:45 PM CDT [facility] LABORATORY Urine MID-STREAM URINE SPECIMEN / Unknown Non-blood Collection / Unknown 06/06/2023 1:37 PM CDT 06/06/2023 1:53 PM CDT Narrative Organism Antibiotic Method Susceptibility Escherichia coli Ampicillin JANICE <=2 ug/mL: Susceptible Escherichia coli Ampicillin/ Sulbactam JANICE <=2 ug/mL: Susceptible Escherichia coli Piperacillin/Tazobactam JANICE <=4 ug/mL: Susceptible Escherichia coli Cefazolin JANICE <=4 ug/mL: Susceptible Comment:Cefazolin UT C breakpoints are for the treatment of uncomplicated urinary tract infections. For the treatment of systemic infections, please contact the laboratory for additional testing. Escherichia coli Cefoxitin JANICE <=4 ug/mL: Susceptible Escherichia coli Ceftazidime JANICE <=1 ug/mL: Susceptible Escherichia coli Ceftriaxone JANICE <=1 ug/mL: Susceptible Escherichia coli Cefepime JANICE <=1 ug/mL: Susceptible Escherichia coli Gentamicin JANICE <=1 ug/mL: Susceptible Escherichia coli Tobramycin JANICE <=1 ug/mL: Susceptible Escherichia coli Ciprofloxacin JANICE <=0.25 ug/mL: Susceptible Escherichia coli Levofloxacin JANICE <=0.12 ug/mL: Susceptible Escherichia coli Nitrofurantoin JANICE <=16 ug/mL: Susceptible Escherichia coli Trimethoprim/Sulfamethoxazole JANICE <=1/19 ug/mL: Susceptible Kimmy Cisneros DO LAB - MICRO GENERAL ORDERABLES [facility]ORATORY [facility] Inf. Diseases Diag. Lab [address] [facility], [address] [place] [address] * XR Pelvis w Hip Left 1 View (06/06/2023 1:01 PM CDT) Anatomical Region Laterality Modality Abdomen/Pelvis Left Digital Radiogra phy Impressions 06/06/2023 1:16 PM CDT IMPRESSION: No acute fracture or malalignment. Mild degenerative changes throughout the pelvis and lower lumbar spine. Osteopenia. JAZIEL SANDOVAL MD SYSTEM ID: ??[id number] Narrative 06/06/2023 1:16 PM CDT XR PELVIS AND HIP LEFT 1 VIEW ??06/06/2023 1:01 PM HISTORY: fall left hip pain COMPARISON: None Procedure Note Jaziel Sandoval MD - 06/06/2023 XR PELVIS AND HIP LEFT 1 VIEW 06/06/2023 1:01 PM HISTORY: fall left hip pain COMPARISON: None IMPRESSION: No acute fracture or malalignment. Mild degenerative changes throughout the pelvis and lower lumbar spine. Osteopenia. JAZIEL SANDOVAL MD SYSTEM ID: [id number] Kimmy Blayne DO IMG DIAGNOSTIC IMAGI NG ORDERABLES * Head CT w/o contrast (06/06/2023 12:27 PM CDT) Anatomical Region Laterality Modality Head, SUBRAD CT NEURO, SUBRA D CT NEURO, UMP CT NEURO, RAD CT Computed Tomography Impressions 06/06/2023 12:41 PM CDT IMPRESSION: 1. No acute intracranial pathology. 2. 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 NAIMA OCAMPO MD SYSTEM ID: ??[id number] Narrative 06/06/2023 12:41 PM CDT EXAM: CT HEAD W/O CONTRAST ??06/06/2023 12:27 PM HISTORY: ??fall ?? COMPARISON: ??Head CT 07/08/2015 TECHNIQUE: Using multidetector thin collimation helical acquisition technique, axial, coronal and sagittal CT images from the skull base to the vertex were obtained without intravenous contrast. Tutoring Clinician (topogram) image(s) also obtained and reviewed. Dose reduction techniques were performed. FINDINGS: No intracranial hemorrhage, mass effect, or midline shift. No acute loss of garcia-white matter differentiation in the cerebral hemispheres. Ventricles are proportionate to the cerebral sulci. Clear basal cisterns. Postsurgical changes of right frontal craniotomy with underlying encephalomalacia and gliosis. There are again metallic densities surrounding the encephalomalacia. Exvacuodilatation of the right lateral ventricle. Postprocedural changes from left internal carotid artery aneurysm stent assisted coiling. The bony calvaria and the bones of the skull base are normal. Partial opacification of the left sphenoid sinus. The remaining paranasal sinuses are clear. The mastoid air cells are clear. Grossly normal orbits. Procedure Note Naima Ocampo MD - 06/06/2023 EXAM: CT HEAD W/O CONTRAST 06/06/2023 12:27 PM HISTORY: fall COMPARISON: Head CT 07/08/2015 TECHNIQUE: Using multidetector thin collimation helical acquisition technique, axial, coronal and sagittal CT images from the skull base to the vertex were obtained without intravenous contrast. Tutoring Clinician (topogram) image(s) also obtained and reviewed. Dose reduction techniques were performed. FINDINGS: No intracranial hemorrhage, mass effect, or midline shift. No acute loss of garcia-white matter differentiation in the cerebral hemispheres. Ventricles are proportionate to the cerebral sulci. Clear basal cisterns. Postsurgical changes of right frontal craniotomy with underlying encephalomalacia and gliosis. There are again metallic densities surrounding the encephalomalacia. Exvacuodilatation of the right lateral ventricle. Postprocedural changes from left internal carotid artery aneurysm stent assisted coiling. The bony calvaria and the bones of the skull base are normal. Partial opacification of the left sphenoid sinus. The remaining paranasal sinuses are clear. The mastoid air cells are clear. Grossly normal orbits. IMPRESSION: 1. No acute intracranial pathology. 2. 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 NAIMA OCAMPO MD SYSTEM ID: [id number] Kimmy Cisneros DO [facility] CT ORDERABLES * XR Chest 2 Views (06/06/2023 12:14 PM CDT) Anatomical Region Laterality Modality Chest Digital Radiogra phy Impressions 06/06/2023 4:01 PM CDT IMPRESSION: Mild bibasilar opacities may be related to atelectasis or infection. No pneumothorax. Pulmonary vascularity is within normal limits. No pleural effusions. ACDF. DIPESH BLACK MD Narrative 06/06/2023 4:01 PM CDT CHEST TWO VIEWS ??06/06/2023 12:14 PM HISTORY: ??Fall. COMPARISON: None. Procedure Note Dipesh Black MD - 06/06/2023 CHEST TWO VIEWS 06/06/2023 12:14 PM HISTORY: Fall. COMPARISON: None. IMPRESSION: Mild bibasilar opacities may be related to atelectasis or infection. No pneumothorax. Pulmonary vascularity is within normal limits. No pleural effusions. ACDF. DIPESH BLACK MD Kimmy Cisneros DO IMG DIAGNOSTIC IMAGI NG ORDERABLES * US Lower Extremity Venous Duplex Left (06/06/2023 12:03 PM CDT) Anatomical Region Laterality Modality Vascular, Thigh, Leg Ultrasound Impressions 06/06/2023 12:53 PM CDT IMPRESSION: No evidence of deep venous thrombosis. EVER PEDRO MD Narrative 06/06/2023 12:53 PM CDT VENOUS ULTRASOUND LEFT LEG ??06/06/2023 12:03 PM HISTORY: left leg swelling COMPARISON: None. FINDINGS: ??Examination of the deep veins with graded compression and color flow Doppler with spectral wave form analysis was performed. There is no evidence for DVT in the left lower extremity. Procedure Note Ever Pedro MD - 06/06/2023 VENOUS ULTRASOUND LEFT LEG 06/06/2023 12:03 PM HISTORY: left leg swelling COMPARISON: None. FINDINGS: Examination of the deep veins with graded compression and color flow Doppler with spectral wave form analysis was performed. There is no evidence for DVT in the left lower extremity. IMPRESSION: No evidence of deep venous thrombosis. EVER PEDRO MD Kimmy Cisneros DO IMG US ORDERABLES * EKG 12-lead, tracing only (06/06/2023 11:14 AM CDT) Systolic Blood Pressure mmHg RADIOLOGY RESULTS Diastolic Blood Pressure mmHg RADIOLOGY RESULTS Ventricular Rate 131 BPM RAD IOLOGY RESULTS Atrial Rate 133 BPM RADIOLOG Y RESULTS DE Interval 112 ms RADIOLOG Y RESULTS QRS Duration 72 ms RADIOLO GY RESULTS QT 408 ms RADIOLOGY RESULTS QTc 602 ms RADIOLOGY RESULTS P Howard 27 degrees RADIOLOGY RESULTS R AXIS 70 degrees RADIOLOGY RESULTS T Howard 31 degrees RADIOLOGY RESULTS Interpretation ECG Sinus tachycardia Possible Inferior infarct (cited on or before 07-MAR-2023) Abnormal ECG When compared with ECG of 07-MAR-2023 17:25, Vent. rate has increased BY ??49 BPM QRS duration has decreased T wave inversion no longer evident in Anterior leads Unconfirmed report - interpretation of this ECG is computer generated - see medical record for final interpretation Confirmed by - EMERGENCY ROOM, PHYSICIAN ([id number]), news editor Aureliano Castellanos ([id number]) on 06/06/2023 3:26:20 PM RADIOLOGY RESULTS 06/06/2023 11:1 4 AM CDT 06/06/2023 3:26 PM CDT Kimmy Cisneros DO ECG ORDERABLES RADIOLOGY RESULTS * Extra Green Top ([place] Heparin) ON ICE (06/06/2023 11:04 AM CDT) Hold Specimen [facility] 06/06/2023 12:32 PM CDT [facility] LABORATORY Blood VENOUS LINE / Unknown Venipuncture / Unknown 06/06/2023 11:04 AM CDT 06/06/2023 11:17 AM CDT Kimmy Cisneros DO LAB - BLOOD ORDERABL ES LABORATORY [facility] Lab [address] Lab (1st floor, no room number) [place] [address], [facility] * Extra Blood Culture Bottle (06/06/2023 11:04 AM CDT) Hold Specimen [facility] 06/06/2023 12:32 PM CDT LABORATORY Blood VENOUS LINE / Unknown Venipuncture / Unknown 06/06/2023 11:04 AM CDT 06/06/2023 11:17 AM CDT Kimmy Cisneros DO LAB - BLOOD ORDERABL ES [facility] [address] Lab (1st floor, no room number) [place] [address], [place] * Extra Red Top Tube (06/06/2023 11:04 AM CDT) Hold Specimen [facility] 06/06/2023 12:32 PM CDT RH LABORATORY Blood VENOUS LINE / Unknown Venipuncture / Unknown 06/06/2023 11:04 AM CDT 06/06/2023 11:17 AM CDT Kimmy Cisneros DO LAB - BLOOD ORDERABL ES [facility] Lab [address] Lab (1st floor, no room number) [place] [address], [place] * Extra Blue Top Tube (06/06/2023 11:04 AM CDT) Hold Specimen [facility] 06/06/2023 12:32 PM CDT RH LABORATORY Blood VENOUS LINE / Unknown Venipuncture / Unknown 06/06/2023 11:04 AM CDT 06/06/2023 11:17 AM CDT Kimmy Cisneros DO LAB - BLOOD ORDERABL ES [facility] [address] Lab (1st floor, no room number) [place] [address] * Troponin T, High Sensitivity (06/06/2023 11:04 AM CDT) Troponin T, High Sensitivity 12 <=14 ng/L 06/06/2023 12:08 PM CDT [facility] LABORATORY Comment: Either a High Sensitivity Troponin T baseline (0 hours) value = 100 ng/L, or an increase in High Sensitivity Troponin T = 7 ng/L at 2 hours compared to 0 hours (2-0 hours), suggests myocardial injury, and urgent clinical attention is required. ?? If the 2-0 hours increase is <7 ng/L, a High Sensitivity Troponin T result above gender-specific reference ranges warrants further evaluation. Recommendations for further evaluation include correlation with clinical decision-making tool (e.g., HEART), a 3rd High Sensitivity Troponin T test 2 hours after the 2nd (a 20% change from baseline would represent concern), admission for observation, close PCC/cardiology follow-up, or urgent outpatient provocative testing. Blood VENOUS LINE / Unknown Venipuncture / Unknown 06/06/2023 11:04 AM CDT 06/06/2023 11:17 AM CDT Kimmy Cisneros DO LAB - BLOOD ORDERABL ES Performing Organization Address [facility] Co de Phone Number [facility] [address] Lab (1st floor, no room number) [place] [address] * Nt probnp inpatient (BNP) (06/06/2023 11:04 AM CDT) [facility] N terminal Pro BNP Inpatient 64 0 - 900 pg/mL 06/06/2023 12:08 PM CDT LABORATORY Comment: Reference range shown and results flagged as abnormal are suggested inpatient cut points for confirming diagnosis if CHF in an acute setting. Establishing a baseline value for each individual patient is useful for follow-up. An inpatient or emergency department NT-proPBNP <300 pg/mL effectively rules out acute CHF, with 99% negative predictive value. The outpatient non-acute reference range for ruling out CHF is: 0-125 pg/mL (age 18 to less than 75) 0-450 pg/mL (age 75 yrs and older) Blood VENOUS LINE / Unknown Venipuncture / Unknown 06/06/2023 11:04 AM CDT 06/06/2023 11:17 AM CDT Kimym Blayne ALANIZ LAB - BLOOD ORDERABL ES Performing Organization Address City/[facility]/ZIP Co de Phone Number [facility] Lab [address] Lab (1st floor, no room number) [place] [address] * Magnesium (06/06/2023 11:04 AM CDT) Magnesium 1.8 1.7 - 2.3 mg/dL 06/06/2023 12:07 PM CDT RH LABORATORY Blood VENOUS LINE / Unknown Venipuncture / Unknown 06/06/2023 11:04 AM CDT 06/06/2023 11:17 AM CDT Kimmy Cisneros DO LAB - BLOOD ORDERABL ES [facility] LABORATORY [facility] [address] [facility] ([facility], no room number) [place] [address] * (ABNORMAL) Comprehensive metabolic panel (06/06/2023 11:04 AM CDT) Sodium 146(H) 135 - 145 mmol/L 06/06/2023 12:07 PM CDT RH LABORATORY Comment:Reference intervals for this test were updated on 12/21/2022 to more accurately reflect our healthy population. There may be differences in the flagging of prior results with similar values performed with this method. Interpretation of those prior results can be made in the context of the updated reference intervals. Potassium 3.6 3.4 - 5.3 mmol/L 06/06/2023 12:07 PM CDT RH LABORATORY Carbon Dioxide (CO2) 25 22 - 29 mmol/L 06/06/2023 12:07 PM CDT RH LABORATORY Anion Gap 17(H) 7 - 15 mmol/L 06/06/2023 12:07 PM CDT [facility] LABORATORY Urea Nitrogen 3.6(L) 8.0 - 23.0 mg/dL 06/06/2023 12:07 PM CDT RH LABORATORY Creatinine 0.47(L) 0.51 - 0.95 mg/dL 06/06/2023 12:07 PM CDT RH LABORATORY GFR Estimate >90 >60 mL/min/1. 73m2 06/06/2023 12:07 PM CDT [facility] LAB[facility]ATORY Calcium 8.2(L) 8.8 - 10.2 mg/dL 06/06/2023 12:07 PM CDT RH LABORATORY Chloride 104 98 - 107 mmol/L 06/06/2023 12:07 PM CDT [facility] LABORATORY Glucose 109(H) 70 - 99 mg/dL 06/06/2023 12:07 PM CDT [facility] LABORATORY Alkaline Phosphatase 218(H) 40 - 150 U/L 06/06/2023 12:07 PM CDT RH LABORATORY Comment:Reference intervals for this test were updated on 02/08/2023 to more accurately reflect our healthy population. There may be differences in the flagging of prior results with similar values performed with this method. Interpretation of those prior results can be made in the context of the updated reference intervals. AST 111(H) 0 - 45 U/L 06/06/2023 12:07 PM CDT RH LABORATORY Comment:Reference intervals for this test were updated on 09/06/2022 to more accurately reflect our healthy population. There may be differences in the flagging of prior results with similar values performed with this method. Interpretation of those prior results can be made in the context of the updated reference intervals. ALT 31 0 - 50 U/L 06/06/2023 12:07 PM CDT RH LABORATORY Comment:Reference intervals for this test were updated on 09/06/2022 to more accurately reflect our healthy population. There may be differences in the flagging of prior results with similar values performed with this method. Interpretation of those prior results can be made in the context of the updated reference intervals. Protein Total 6.3(L) 6.4 - 8.3 g/dL 06/06/2023 12:07 PM CDT RH LABORATORY Albumin 3.1(L) 3.5 - 5.2 g/dL 06/06/2023 12:07 PM CDT RH LABORATORY Bilirubin Total 0.4 <=1.2 mg/dL 06/06/2023 12:07 PM CDT RH LABORATORY Blood VENOUS LINE / Unknown Venipuncture / Unknown 06/06/2023 11:04 AM CDT 06/06/2023 11:17 AM CDT Kimmy Cisneros DO LAB - BLOOD ORDERABL ES RH LABORATORY [facility] [address] [facility] Lab (1st floor, no room number) [place] [address] * CK total (06/06/2023 11:04 AM CDT) CK 83 26 - 192 U/L 06/06/2023 1:07 PM CDT LABORATORY Blood VENOUS LINE / Unknown Venipuncture / Unknown 06/06/2023 11:04 AM CDT 06/06/2023 11:17 AM CDT Kimmy Cisneros DO LAB - BLOOD ORDERABL ES [facility] LABORATORY [facility] [address] [facility] Lab (1st floor, no room number) [place] [address], [facility] from Last 3 Months Advance Directives For more information, please contact: [phone] Latest Code Status on File Code Status Date Activated Date Inactivated Comments Full Code 10/24/2020 5:35 PM 10/27/2020 6:15 PM All ba sic and advanced life-sustaining interventions are performed as appropriate Question Answer Comments Code status determined by: Discussion with patient/ legal decision maker Code Status History Code Status Date Activated Date Inactivated Comments Full Code 07/08/2015 3:13 PM 10/24/2020 10:14 AM Full Code 07/30/2014 8:35 PM 08/02/2014 6:38 PM Full Code 01/16/2014 5:45 PM 01/17/2014 4:33 PM Care Teams Torch Burner Relationship Specialty [place] [address] [place] [address] PCP - General Family Medicine 01/12/22 Alek Jones MD [address], [id number] [place] [address] Assigned PCP 03/01/21 Brayden Du MD [address] [facility] [id number] [place], [place] [address] Neurology 05/06/22
--- OUTSIDE RECORDS SUMMARY | 2023-07-05 14:17 | XMS_ITS | Encounter Summary ---
Author Name Unknown Organization [place] Address [facility] [place] [address] Care Team Providers Care Manager Of Marketing Name Role Phone Alek Jones MD Unavailable [phone] Neelima Shukla DO Primary Care Provider [phone] Brayden Du MD Unavailable Reason for Visit * Reason Onset Date Comments Results 06/08/2023 Encounter Details Date Type Department Care Team (Late st Contact Info) Description 06/08/2023 Telephone [facility] Emergency Dept [address] [place] [phone] Adi Edmond, FILIPPO Results Social History Tobacco Use Types Packs/Day Years [...] Sex Assigned at Female 02/28/2021 1:24 PM BIOINFORMATICS RESEARCH TECHNICIAN Gender Identity Female 02/28/2021 1:23 PM BIOINFORMATICS RESEARCH TECHNICIAN Sexual Orientation Straight 02/28/2021 1: 20 PM BIOINFORMATICS RESEARCH TECHNICIAN documented as of this encounter Miscellaneous Notes * Telephone Encounter - Adi Edmond RN - 06/08/2023 9:18 AM CDT Images from the original note were not included. [facility] Reason for call: Lab Result Notification Lab Result (including Rx patient on, if applicable). If culture, copy of lab report at bottom. Lab Result: Final Urine Culture Report on 06/07/23 [facility] Emergency Dept discharge antibiotic prescribed: Cephalexin (Keflex) 500 mg capsule, 1 capsule (500 mg) by mouth 4 times daily for 7 days. Date of Rx (if applicable): 06/06/23 #1. Bacteria, 50,000 - 100,000 CFU/ML Escherichia coli is SUSCEPTIBLE to Antibiotic. No change in treatment per [facility] ED lab result Urine Culture protocol. Creatinine Level (mg/dl) Creatinine Date Value Ref Range Status 06/06/2023 0.47 (L) 0.51 - 0.95 mg/dL Final 02/24/2021 0.70 0.60 - 1.30 mg/dL Final Creatinine clearance (ml/min), if applicable Serum creatinine: 0.47 mg/dL (L) 06/06/23 1104 Estimated creatinine clearance: 116.6 mL/min (A) Patient's current Symptoms: Attempted to LM, mailbox full. Is susceptible result, will close case here. Adi Edmond RN documented in this encounter Plan of Treatment Not on file documented as of this encounter Visit Diagnoses Not on filedocumented in this encounter Additional Health Concerns Assessment Noted Time PHQ-9 Depression Total Score: 9 02/18/20 21 7:30 AM BIOINFORMATICS RESEARCH TECHNICIAN documented as of this encounter Care Teams Manager Of Marketing Relationship Specialty [place] [address] [place] [address] PCP - General Family Medicine 01/12/22 Alek Jones MD [address], [id number] [place] [address] Assigned PCP 03/01/21 Brayden Du MD [address] [facility], [place] [address] Neurology 05/06/22 documented as of this encounter
--- OUTSIDE RECORDS SUMMARY | 2023-07-05 14:17 | XMS_ITS | Encounter Summary ---
Author Name Unknown Organization [place] Address [address] [facility] [place] [address] Care Team Providers Care Microfiche Duplicator Name Role Phone Alek Jones MD Unavailable [phone] Neelima Shukla DO Primary Care Provider [phone] Brayden Du MD Unavailable Reason for Referral * Mental Health Outpatient (Routine) - Pending Review Specialty Diagnoses / Procedures Referred By Contac t Referred To Contact Behavioral Health Diagnoses Alcohol use, unspecified with other alcohol-induced disorder (H) Jessy Membreno CNP [address] [facility] [address] [place] [address] Referral ID Status Reason Start Date Expiration Date V isits Requested Visits Authorized [id number] Pending Review 07/01/2023 06/30/2024 1 1 Question Answer Services: Substance Use Substance Use - REVIEW REFERENCE LINK BELOW: Other My Clinical Question Is: alcohol use unspecified with other alcohol induced disorder Scheduling Instructions: Shemar Haywood will call you to coordinate your care as prescribed by your provider. If you don't hear from a solar sales representative and assessor within 2 business days, please call . Comments Referral Transcribed by external fax Provider: HOME Membreno affiliated with [facility] clinic at [address] [facility] [address] [place] [address]. VA: No If yes was is the VA Authorization Number: Phone number: [phone] Fax number: [phone] Please be aware that coverage of these services is subject to the terms and limitations of your health insurance plan. Call member services at your health plan with any benefit or coverage questions. [facility] will call you to coordinate your care as prescribed by your provider. If you don't hear from a solar sales representative and assessor within 2 business days, please call . Encounter Details Date Type Department Care Team (Late st Contact Info) Description 07/01/2023 Transcribe Orders GENERIC EXTERNAL DATA DEPARTMENT Provider, Generic External Data Alcohol use, unspecified with other alcohol-induced disorder (H) (Primary Dx) Social History Tobacco Use Types Packs/Day Years [...] Sex Assigned at Female 02/28/2021 1:24 PM SYSTEM SAFETY ENGINEER Gender Identity Female 02/28/2021 1:23 PM SYSTEM SAFETY ENGINEER Sexual Orientation Straight 02/28/2021 1: 20 PM SYSTEM SAFETY ENGINEER documented as of this encounter Plan of Treatment Scheduled Referrals Name Type Priority Associated Diagnoses Orde r Schedule Adult Mental Health Machine Rebuilder Referral Referral Routine Alcohol use, unspecified with other alcohol-induced disorder (H) Expected: 07/01/2023 (Approximate), Expires: 06/30/2024 documented as of this encounter Visit Diagnoses Diagnosis Alcohol use, unspecified with other alcohol-induced disorder (H)- Primary documented in this encounter Additional Health Concerns Assessment Noted Time PHQ-9 Depression Total Score: 9 02/18/20 21 7:30 AM SYSTEM SAFETY ENGINEER documented as of this encounter Care Teams Microfiche Duplicator Relationship Specialty [place] [address] [place] [address] PCP - General Family Medicine 01/12/22 Alek Jones MD [address] [place] [address], [address] [address] Assigned PCP 03/01/21 Brayden Du MD [address] [facility] [id number], [place] [address] Neurology 05/06/22 documented as of this encounter
--- OUTSIDE RECORDS SUMMARY | 2023-07-05 14:17 | XMS_ITS | Encounter Summary ---
Author Name Unknown Organization [place] Address [facility] [place] [address] Care Team Providers Care Culturist Name Role Phone Alek Jones MD Unavailable [phone] Neelima Shukla DO Primary Care Provider [phone] Brayden Du MD Unavailable Encounter Details Date Type Department Care Team (Late st Contact Info) Description 06/23/2023 Medical Correspondence [facility] [address] [place] [address] Scan, Non-Provider Social History Tobacco Use Types Packs/Day Years [...] Sex Assigned at Female 02/28/2021 1:24 PM HOTBED LEVER OPERATOR Gender Identity Female 02/28/2021 1:23 PM HOTBED LEVER OPERATOR Sexual Orientation Straight 02/28/2021 1: 20 PM HOTBED LEVER OPERATOR documented as of this encounter Plan of Treatment Not on file documented as of this encounter Visit Diagnoses Not on filedocumented in this encounter Additional Health Concerns Assessment Noted Time PHQ-9 Depression Total Score: 9 02/18/20 21 7:30 AM HOTBED LEVER OPERATOR documented as of this encounter Care Teams Culturist Relationship Specialty [place] [address] [place] [address] PCP - General Family Medicine 01/12/22 Alek Jones MD [address], [address] [address] Assigned PCP 03/01/21 Brayden Du MD [address] [facility] [id number] [place] [address] Neurology 05/06/22 documented as of this encounter
--- OUTSIDE RECORDS SUMMARY | 2023-07-05 14:17 | XMS_ITS | Encounter Summary ---
Author Name Unknown Organization [place] Address [address] [facility] [place] [address] Care Team Providers Care Professor Of Counseling Name Role Phone Alek Jones MD Unavailable [phone] Neelima Shukla DO Primary Care Provider [phone] Brayden Du MD Unavailable Encounter Details Date Type Department Care Team (Latest Contact Info) Description 06/11/2023 Travel Social History Tobacco Use Types Packs/Day Years [...] Sex Assigned at Female 02/28/2021 1:24 PM COUNCILMAN Gender Identity Female 02/28/2021 1:23 PM COUNCILMAN Sexual Orientation Straight 02/28/2021 1: 20 PM COUNCILMAN documented as of this encounter Plan of Treatment Not on file documented as of this encounter Visit Diagnoses Not on filedocumented in this encounter Additional Health Concerns Assessment Noted Time PHQ-9 Depression Total Score: 9 02/18/20 21 7:30 AM COUNCILMAN documented as of this encounter Care Teams Professor Of Counseling Relationship Specialty Start [place] [address] [place] [address] PCP - General Family Medicine 01/12/22 Alek Jones MD [address] , [id number] [place] [address] Assigned PCP 03/01/21 Brayden Du MD [address] [facility] [id number] [place], [place] [address] Neurology 05/06/22 documented as of this encounter
--- OUTSIDE RECORDS SUMMARY | 2023-07-05 14:17 | XMS_ITS | Clinical Summary ---
Author Name Unknown Organization [facility] Address [address] [facility] [place] [address] Care Team Providers Care Rn Pacu Name Role Phone Alek Jones MD Unavailable [phone] Neelima Shukla DO Primary Care Provider [phone] Brayden Du MD Unavailable Allergies Active Allergy Reactions Criticality Noted Date [...] Reviewed chart for advance care plan. Sultana Mueller has no plan or code status on file. Discussed available resources and provided with information. Confirmed code status reflects current choices pending further ACP discussions. Confirmed/documented legally designated decision maker(s). 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 Last seizure 2009 Pt on dilantin and sees neurology at [facility] History of migraine 09/19/2012 Resolved Problems Problem Noted Date Diagnosed Date Resolved Date Polysubstance abuse 09/04/2013 07/25/19 15 Alcohol abuse, episodic drinking behavior 08/30/2013 07/24/2014 Adjustment disorder with mix ed anxiety and depressed mood 09/19/2012 04/07/2016 Overview: Dxed at 20 y0 Encounters Date Type Department Care Team Description 07/01/2023 Transcribe Orders GENERIC EXTERNAL DATA DEPARTMENT Provider, Generic External Data Alcohol use, unspecified with other alcohol-induced disorder (H) (Primary Dx) 06/23/2023 Medical Correspondence [facility] [address] [place] [id number] Scan, Non-Provider 06/11/2023 7:17 PM CDT - 06/12/2023 11:01 AM CDT Emergency [facility] Emergency Dept [address] [place] [address] Kaushal Mao MD Amdahl, MD Jean Paul Ashby Shaun M, MD Alcoholic intoxication without complication (H24) Discharge Disposition: Home or Self Care 06/11/2023 Travel 06/08/2023 Telephone [facility] Emergency Dept [address] [place] [address] Adi Edmond RN Results 06/06/2023 10:35 AM CDT - 06/06/2023 7:56 PM CDT Emergency [facility] Emergency Dept [address] [place] [address] Kimmy Cisneros, Fall, initial encounter; Hip pain, left; Urinary tract infection without hematuria, site unspecified; Alcoholic intoxication without complication (H24); Iron deficiency anemia, unspecified iron deficiency anemia type Discharge Disposition: Home or Self Care from Last 3 Months Immunizations Name Administration Dates Next Due COVID-19 MONOVALENT 12+ (Pfizer) 07/30/2020,06/26 Influenza Vaccine >6 months,quad, PF ,12/10/2019,03/05/2019,2017,11/24/2016,04/07/2016,12/31/2014,1 TDAP Vaccine (Adacel) 01/04/2006 TDAP Vaccine (Boostrix) 09/19/2012 Zoster recombinant adjuvante d (SHINGRIX) 12/10/2019,03/02/2019 Family History Medical History Relation Comments Diabetes Mother Hypertension Mother Asthma No family hx of Breast Cancer No family hx of C.A.D. 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 Last Filed Vital Signs Vital Sign Reading Time Taken Comments Blood Pressure 128/67 06/12/2023 10:29 AM CDT Pulse 126 06/12/2023 10:15 AM CDT Temperature 36.7 ??C (98 ??F) 06/11/2023 8:37 PM CDT Respiratory Rate 15 06/11/2023 7:45 PM CDT Oxygen Saturation 96% 06/12/2023 10:31 AM CDT Inhaled Oxygen Concentration - - Weight 72.6 kg (160 lb) 03/07/2023 5:06 PM 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 Height 162.6 cm (5' 4) 03/07/2023 5:06 PM 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 OPERATOR Body Mass Index 27.46 03/07/2023 5:06 PM 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 Plan of Treatment Health Maintenance Due Date Last Done Comments ANNUAL REVIEW OF HM ORDERS 1957 CT COLONOGRAPHY 1957 DEXA 1957 FIT 1957 FLEX SIG 1957 sDNA (Cologuard) 1957 COLONOSCOPY 06/14/1967 COLORECTAL CANCER SCREENING 06/14/1967 HEPATITIS A IMMUNIZATION (1 of 2 - Risk 2-dose series) 1976 URINE DRUG SCREEN 01/26/2007 01/26/2006 LUNG CANCER SCREENING 06/14/2007 RSV VACCINE ( & 60+) (1 - 1-dose 60+ series) 2017 MAMMO SCREENING 12/10/2019 12/09/2017, 06/26 (Declined), 06/01/2011 PHQ-9 08/16/2021 02/16/2021, 0 10/2020, 04/04/2019, Additional history exists NICOTINE/TOBACCO CESSATION COUNSELING Q 1 YR 02/16/2022 02/16/2021, 06/02/2020 LIPID 02/24/2022 02/24/2021, 10/2019, 03/31/2018, Additional history exists FALL RISK ASSESSMENT 2022 DTAP/TDAP/TD IMMUNIZATION (3 - Td or Tdap) 09/19/2022 09/19/2012, 01/04/2006 COVID-19 Vaccine ( season) 2022 02/10/2022, 10/28/2021, 02/23/2021, Additional history exists INFLUENZA VACCINE (#1) 2022 , 02/16/2021, 12/10/2019, Additional history exists MEDICARE ANNUAL WELLNESS VISIT 05/13/2023 05/13/2022, 02/16/2021, 04/04/2019, Additional history exists ADVANCE CARE PLANNING 10/23/2025 10/23/2020 , 05/02/2015, 07/29/2014, Additional history exists GLUCOSE 06/10/2026 06/11/2023, 05/26, 03/07/2023, Additional history exists HEPATITIS C SCREENING Completed 04/07/2016 PAP Discontinued 03/04/2017 ZOSTER IMMUNIZATION Completed 12/10/2019, 9 DEPRESSION ACTION PLAN Completed 02/16/2021 Pneumococcal Vaccine: 65+ Years Completed 02/10/2022 HPV IMMUNIZATION Aged Out No longer e ligible based on patient's age to complete this topic IPV IMMUNIZATION Aged Out No longer e ligible based on patient's age to complete this topic MENINGITIS IMMUNIZATION Aged Out No l onger eligible based on patient's age to complete this topic RSV MONOCLONAL ANTIBODY Aged Out No l onger eligible based on patient's age to complete this topic Medical Devices Implanted Type Area Bolt Threader Device Identifier Shelf Expiration Date Model / Serial / Lot Imp Scr Syn Lcp Dist 2.7x12mm Self Tap Ss 202.212 - [id number] Implanted:Qty: 1 on 10/24/2020 by Quentin Pritchett MD at [facility] Metallic Hardware/An chor Left: Ankle SYNTHES-STRATEC 202.212 / / [id number] Imp Scr Syn Lcp Dist 2.7x14mm Self Tap Ss 202.214 - [id number] Implanted:Qty: 1 on 10/24/2020 by Quentin Pritchett MD at [facility] Metallic Hardware/An chor Left: Ankle SYNTHES-STRATEC 202.214 / / [id number] 21 Imp Scr Syn Lcp Dist 2.7x16mm Self Tap Ss 202.216 - [id number] Implanted:Qty: 3 on 10/24/2020 by Quentin Pritchett MD at [facility] Metallic Hardware/An chor Left: Ankle SYNTHES-STRATEC 202.216 / / [id number] 21 Imp Scr Syn Cortex 2.7x32mm Self Tap Ss 202.832 - [id number] Implanted:Qty: 1 on 10/24/2020 by Quentin Pritchett MD at [facility] Metallic Hardware/An chor Left: Ankle SYNTHES-STRATEC 202.832 / / [id number] L2021 Imp Scr Syn 3.5x12mm Locking W/Stardrive Ss 212.102 - [id number] Implanted:Qty: 2 on 10/24/2020 by Quentin Pritchett MD at [facility] Metallic Hardware/An chor Left: Ankle SYNTHES-STRATEC 212.102 / / [id number] L2021 Imp Scr Syn Cortex 3.5x16mm Self Tap Ss 204.816 - [id number] Implanted:Qty: 1 on 10/24/2020 by Quentin Pritchett MD at [facility] Metallic Hardware/An chor Left: Ankle SYNTHES-STRATEC 204.816 / / [id number] L2021 Imp Scr Syn Cortex 3.5x28mm Self Tap Ss 204.828 - [id number] Implanted:Qty: 1 on 10/24/2020 by Quentin Pritchett MD at [facility] Metallic Hardware/An chor Left: Ankle SYNTHES-STRATEC 204.828 / / [id number] L2021 Imp Scr Syn Cortex 3.5x38mm Self Tap Ss 204.838 - [id number] Implanted:Qty: 1 on 10/24/2020 by Quentin Pritchett MD at [facility] Metallic Hardware/An chor Left: Ankle SYNTHES-STRATEC 204.838 / / [id number] L2021 Imp Scr Syn Can 4.0x40mm Long Thrd Ss 207.740 - [id number] Implanted:Qty: 1 on 10/24/2020 by Quentin Pritchett MD at [facility] Metallic Hardware/An chor Left: Ankle SYNTHES-STRATEC 207.740 / / [id number] L2021 Imp Wire Margarita 0.045x4 78.2020 - [id number] Implanted:Qty: 1 on 10/24/2020 by Quentin Pritchett MD at [facility] Wire Left: Ankle G SOURCE 78.202 / / 4.0mm Ti Locking Screww/T25 Implanted:Qty: 1 on 01/16/2014 by Bayron Can MD at [facility] Left: Humerus SYNTHES 08/27/2019 04.005.4 44S / / [id number] 4.5mm Ti Multiloc Screw 42mm Implanted:Qty: 1 on 01/16/2014 by Bayron Can MD at [facility] Left: Humerus SYNTHES 03/28/2022 04.019.0 42S / / [id number] 4.5mm Ti Mulitloc Screw 38mm Implanted:Qty: 1 on 01/16/2014 by Bayron Can MD at [facility] Left: Humerus SYNTHES 02/25/2022 04.019.0 38S / / [id number] 4.0mm Ti Locking Screw 24mm Implanted:Qty: 1 on 01/16/2014 by Bayron Can MD at [facility] Left: Humerus SYNTHES 08/26/2022 04.005.4 14S / / [id number] 4.0mm Ti Locking Screw 26mm Implanted:Qty: 1 on 01/16/2014 by Bayron Can MD at [facility] Left: Humerus SYNTHES 12/26/2021 04.005.4 16S / / [id number] Multiloc End Cap Implanted:Qty: 1 on 01/16/2014 by Bayron Can MD at [facility] Left: Humerus SYNTHES 11/26/2022 04.019.0 00S / / [id number] 4.5mmti Multiloc Screw 38mm Implanted:Qty: 1 on 01/16/2014 by Bayron Can MD at [facility] Left: Humerus SYNTHES 02/25/2023 04.019.0 38S / / [id number] 3.5mm Lcp Hook Plate Implanted:Qty: 1 on 10/24/2020 by Quentin Prtichett MD at [facility] Left: Ankle SYNTHES 02.113.1 03S / / [id number] 2.7mm/3.5mm Lcp Posterolateral Distal Fibula Plates Implanted:Qty: 1 on 10/24/2020 by Quentin Pritchett MD at [facility] Left: Ankle SYNTHES 02.112.1 / [id number] Procedures Procedure Name Priority Date/Time Associated [...] Mao MD LAB - BLOOD ORDMaykel PHILLIPS [facility] Acute Care Lab [address] Lab (1st floor, no room number) [place] [address], [facility] * (ABNORMAL) Alcohol level blood (06/11/2023 8:53 PM CDT) Only the most recent of2 resultswithin the time period is included. Alcohol ethyl 0.35(HH) <=0.01 g/dL 06/11/2023 9:38 PM CDT [facility] Blood STRUCTURE OF RIGHT HAND / Unknown Venipuncture / Unknown 06/11/2023 8:53 PM CDT 06/11/2023 9:00 PM CDT Kaushal Mao MD LAB - BLOOD ORDMaykel PHILLIPS [facility] Acute Care Lab [address] Lab (1st floor, no room number) [place] [address], [facility] * (ABNORMAL) Basic metabolic panel (BMP) (06/11/2023 [...] MD LAB - BLOOD YINKA PHILLIPS LABORATORY [facility] Acute Care Lab [address] Lab (1st floor, no room number) [place] [address], [facility] * (ABNORMAL) UA with Microscopic reflex to Culture (06/06/2023 1:37 PM CDT) Color Urine Yellow Colorless, Straw, Light Yellow, Yellow 06/06/2023 1:53 PM CDT [facility] Appearance Urine Slightly Cloudy(A) Clear 06/06/2023 1:53 PM CDT [facility] Glucose Urine Negative Negative mg/dL 06/06/2023 1:53 PM CDT [facility] Bilirubin Urine Negative Negative 1:53 PM CDT [facility] Ketones Urine Trace(A) Negative mg/dL 06/06/2023 1:53 PM CDT [facility] Specific Williamson Urine 1.020 1.003 - 1.035 06/06/2023 1:53 [...] Urine Moderate(A) Negative 06/06/2023 1:53 PM CDT [facility] Bacteria Urine Many(A) None Seen /HPF 06/06/2023 1:53 PM CDT [facility] Mucus Urine Present(A) None Seen /LPF 06/06/2023 1:53 PM CDT [facility] RBC Urine 4(H) <=2 /HPF 06/06/2023 1:53 PM CDT [facility] WBC Urine 21(H) <=5 /HPF 06/06/2023 1:53 PM CDT [facility] Squamous Epithelials Urine 7(H) <=1 /HPF 06/06/2023 1:53 PM CDT [facility] Urine MID-STREAM URINE SPECIMEN / Unknown Non-blood Collection / Unknown 06/06/2023 1:37 PM CDT 06/06/2023 1:42 PM CDT Narrative LABORATORY - 06/06/2023 1:53 PM CDT Urine Culture ordered based on laboratory criteria Kimmy Cisneros DO LAB - URINE ORDERABL ES LABORATORY [facility] Acute Care Lab [address] Lab (1st floor, no room number) [place] [address], [facility] * (ABNORMAL) Urine Culture (06/06/2023 1:37 PM [...] coli Cefazolin JANICE <=4 ug/mL: Susceptible Comment:Cefazolin IN C breakpoints are for the treatment of [...] - MICRO GENERAL ORDERABLES [facility]AT[facility] Inf. Diseases Diag. Lab [address] [facility] [place] [address] * XR Pelvis w Hip Left 1 View (06/06/2023 1:01 PM CDT) Anatomical Region Laterality Modality Abdomen/Pelvis Left Digital Radiogra phy Impressions 06/06/2023 1:16 PM CDT IMPRESSION: No acute fracture or malalignment. Mild degenerative changes throughout the pelvis and lower lumbar spine. Osteopenia. JAZIEL SANDOVAL MD SYSTEM ID: ??[id number] Narrative 06/06/2023 1:16 PM CDT XR PELVIS [...] spine. Osteopenia. JAZIEL SANDOVAL MD SYSTEM ID: [id number] Kimmy Cisneros DO IMG DIAGNOSTIC IMAGI NG [...] aneurysm coiling. NAIMA OCAMPO MD SYSTEM ID: ??[id number] Narrative 06/06/2023 12:41 PM CDT EXAM: CT HEAD W/O CONTRAST ??06/06/2023 12:27 PM HISTORY: ??fall ?? COMPARISON: ??Head CT 07/08/2015 TECHNIQUE: Using multidetector thin collimation helical acquisition technique, axial, coronal and sagittal CT images from the skull base to the vertex were obtained without intravenous contrast. Satellite Tv Installer (topogram) image(s) also obtained and reviewed. Dose [...] the vertex were obtained without intravenous contrast. Satellite Tv Installer (topogram) image(s) also obtained and reviewed. Dose [...] aneurysm coiling. NAIMA OCAMPO MD SYSTEM ID: [id number] Kimmy Cisneros DO IMG CT ORDERABLES * XR Chest 2 Views [...] pleural effusions. ACDF. DIPESH BLACK MD Kimmy Blayne DO IMG DIAGNOSTIC IMAGI NG [...] deep venous thrombosis. EVER PEDRO MD Kimmy Greenguzman GREEN IMG US ORDERABLES * EKG 12-lead, tracing only (06/06/2023 11:14 AM CDT) Systolic Blood Pressure mmHg RADIOLOGY RESULTS Diastolic Blood Pressure mmHg RADIOLOGY RESULTS Ventricular Rate 131 BPM RAD IOLOGY RESULTS Atrial Rate 133 BPM RADIOLOG Y RESULTS WY Interval 112 ms RADIOLOG Y RESULTS QRS Duration 72 ms RADIOLO GY RESULTS QT 408 ms RADIOLOGY RESULTS QTc 602 ms RADIOLOGY RESULTS P [place] 27 degrees RADIOLOGY RESULTS R AXIS 70 degrees RADIOLOGY RESULTS T [place] 31 degrees RADIOLOGY RESULTS Interpretation ECG Sinus [...] Confirmed by - EMERGENCY ROOM, PHYSICIAN ([id number]), photograph editor Aureliano Castellanos ([id number]) on 06/06/2023 3:26:20 PM RADIOLOGY RESULTS 06/06/2023 11:1 4 AM CDT 06/06/2023 3:26 PM CDT Kimmy Cisneros ECG ORDERABLES RADIOLOGY RESULTS * Extra Green Top ([place] Heparin) ON ICE (06/06/2023 11:04 AM CDT) Hold Specimen JIC 06/06/2023 12:32 PM CDT [facility] Blood VENOUS LINE / Unknown Venipuncture / Unknown 06/06/2023 11:04 AM CDT 06/06/2023 11:17 AM CDT Kimmy Cisneros DO LAB - BLOOD ORDERABL ES [facility] Lab [address] Lab (1st floor, no room number) [place] [address] * Extra Blood Culture Bottle (06/06/2023 11:04 AM CDT) Hold Specimen [facility] 06/06/2023 12:32 PM CDT [facility] Blood VENOUS LINE / Unknown Venipuncture / Unknown 06/06/2023 11:04 AM CDT 06/06/2023 11:17 AM CDT Kimmy Cisneros DO LAB - BLOOD ORDERABL ES [facility] Lab [address] Lab (1st floor, no room number) [place] [address] * Extra Red Top Tube (06/06/2023 11:04 AM CDT) Hold Specimen [facility] 06/06/2023 12:32 PM CDT [facility] Blood VENOUS LINE / Unknown Venipuncture / Unknown 06/06/2023 11:04 AM CDT 06/06/2023 11:17 AM CDT Kimmy Cisneros DO LAB - BLOOD ORDERABL ES [facility] Lab [address] Lab (1st floor, no room number) [place] [address] * Extra Blue Top Tube (06/06/2023 11:04 AM CDT) Hold Specimen [facility] 06/06/2023 12:32 PM CDT [facility] Blood VENOUS LINE / Unknown Venipuncture / Unknown 06/06/2023 11:04 AM CDT 06/06/2023 11:17 AM CDT Kimmy Cisneros DO LAB - BLOOD ORDERABL ES Performing Organization Address [facility]/ZIP Co de Phone Number [facility] Acute Care Lab [address] Lab (1st floor, no room number) [place] [address] * Troponin T, High Sensitivity (06/06/2023 11:04 AM CDT) Troponin T, High Sensitivity 12 <=14 ng/L 06/06/2023 12:08 PM CDT LABORATORY Comment: Either a High Sensitivity Troponin [...] - BLOOD ORDERABL ES Performing Organization Address [facility]/ZIP Co de Phone Number [facility] Care Lab [address] Lab (1st floor, no room number) [place] [address] * Nt probnp inpatient (BNP) (06/06/2023 11:04 AM CDT) N terminal Pro BNP Inpatient 64 0 - 900 pg/mL 06/06/2023 12:08 PM CDT [facility] Comment: Reference range shown and results [...] - BLOOD ORDERABL ES Performing Organization Address [facility]/ZIP Co de Phone Number [facility] Lab [address] Lab (1st floor, no room number) [address] [place] [address] * Magnesium (06/06/2023 11:04 AM CDT) Magnesium 1.8 1.7 - 2.3 mg/dL 06/06/2023 12:07 PM CDT LABORATORY Blood VENOUS LINE / Unknown Venipuncture / Unknown 06/06/2023 11:04 AM CDT 06/06/2023 11:17 AM CDT Kimmy Cisneros DO LAB - BLOOD ORDERABL ES Performing Organization Address [facility] Co de Phone Number [facility] Lab [address] Lab (1st floor, no room number) [place] [phone] [place] [address] * (ABNORMAL) Comprehensive metabolic panel (06/06/2023 11:04 AM CDT) Sodium 146(H) 135 - 145 mmol/L 06/06/2023 12:07 PM CDT LABORATORY Comment:Reference intervals for this test were updated on 12/21/2022 to more accurately reflect our healthy population. There may be differences in the flagging of prior results with similar values performed with this method. Interpretation of those prior results can be made in the context of the updated reference intervals. Potassium 3.6 3.4 - 5.3 mmol/L 06/06/2023 12:07 PM CDT LABORATORY Carbon Dioxide (CO2) 25 22 - [...] Calcium 8.2(L) 8.8 - 10.2 mg/dL 06/06/2023 12: PM CDT [facility] Chloride 104 98 - 107 mmol/L 06/06/2023: PM CDT [facility] Glucose 109(H) 70 - 99 mg/dL 06/06/2023 12: PM CDT [facility] Alkaline Phosphatase 218(H) [...] Protein Total 6.3(L) 6.4 - 8.3 g/dL 06/06/2023:07 PM CDT [facility] Albumin 3.1(L) 3.5 - 5.2 g/dL 06/06/2023 12:07 PM CDT [facility] Bilirubin Total 0.4 <=1.2 mg/dL 06/06/2023 12:07 PM CDT [facility] Blood VENOUS LINE / Unknown Venipuncture / Unknown 06/06/2023 11:04 AM CDT 06/06/2023 11:17 AM CDT Kimmy Cisneros DO LAB - BLOOD ORDERABL ES [facility] Acute Care Lab [address] Lab (1st floor, no room number) [place] [address] * CK total (06/06/2023 11:04 AM CDT) CK 83 26 - 192 U/L 06/06/2023 1:07 PM CDT [facility] Blood VENOUS LINE / Unknown Venipuncture / Unknown 06/06/2023 11:04 AM CDT 06/06/2023 11:17 AM CDT Kimmy Cisneros DO LAB - BLOOD ORDERABL ES [facility] Care Lab [address] Lab (1st floor, no room number) [place] [address] from Last 3 Months Advance Directives For more information, please contact: [phone] Latest Code Status on File Code Status [...] 5:45 PM 01/17/2014 4:33 PM Care Teams Rn Pacu Relationship Specialty [place] [address] [place] [address] PCP - General Family Medicine 01/12/22 Alek Jones MD [address] , [address] [address] Assigned PCP 03/01/21 Baryden Du MD [address] [facility] [id number] [place] [address] Neurology 05/06/22
--- OUTSIDE RECORDS SUMMARY | 2023-07-05 14:18 | XMS_ITS | Clinical Summary ---
Author Name Unknown Organization [facility] Address [address] [place] [address] Care Team Providers Care Promotional Advertising Assistant Name Role Phone Alek Jones MD Primary Care Provider [phone] Source Comments You are receiving this document as you are listed as the primary care provider,follow-up provider, or the patient has been referred to you for consultation.This is in compliance with the Medicare and[facility] Foundation[facility] EHR Incentive Program,which states Providers who transition their patient to another setting of careor provider of care or refers their patient to another provider of care shouldprovide summary care record for each transition of care or referral. [facility] Allergies Active Allergy Reactions Criticality Noted Date Comments Propoxyphene Seizures 12/03/2010 Medications Medication Sig Dispensed Refills Start Date End Date Status Multiple Vitamins-Minerals (MULTIVITAMIN OR) Take 1 tablet by mouth daily (every 24 hours). 07/02/2008 Active SUMAtriptan (IMITREX) 50 MG tablet LW Addl Instr:Take 1 tablet by mouth at the onset of a typical headache as needed. May repeat after 2 hours if headache still present. Maximum of 2 tablets/24 hours. Maximum 9 days/month. Indicated for: Migraine Headaches 9 11/19/2009 Active oxyCODONE-acetamino phen (PERCOCET) 5-325 MG tablet Take 1-2 Tablets by mouth every 4 hours as needed for Pain (Take 1-2 tablets by mouth every 4 hours as needed for Pain.). 01/25/2014 Active nicotine (COMMIT) [address] 4 mg inside cheek as needed for Smoking cessation. 07/24/2014 Active aspirin EC 81 MG enteric coated tablet Take 1 Tablet (81 mg) by mouth. Active BELSOMRA 20 MG TABS TAKE 1/2 TO 1 TABLET BY MOUTH EVERY NIGHT AT BEDTIME 15MINUTES BEFORE BEDTIME 03/10/2020 Active doxepin (SINEQUAN) 10 MG capsule TK ONE C PO 15 MIN B BED 02/05/2020 Active Meloxicam (MOBIC) 15 MG tablet Take 1 Tablet by mouth daily. 30 Tablet 03/31/2020 Active pregabalin (LYRICA) 300 MG capsule Take 1 Capsule (300 mg) by mouth two times a day. 06/14/2022 Active busPIRone (BUSPAR) 15 MG tablet Take 1 Tablet (15 mg) by mouth two times a day. 04/26/2022 Active folic acid 1 MG tablet Take 1 Tablet (1 mg) by mouth daily. 06/30/2022 Active vitamin B-12 (AKA: CYANOCOBALAMIN) 1000 MCG tablet Take 1 Tablet (1,000 mcg) by mouth daily. 06/10/2022 Active metoprolol tartrate (LOPRESSOR) 50 MG tablet Take 1 Tablet (50 mg) by mouth two times a day. 05/13/2022 Active mirtazapine (REMERON) 15 MG tablet Take 1 Tablet (15 mg) by mouth daily at bedtime. 04/19/2022 Active omeprazole (PRILOSEC) 20 MG capsule Take 1 Capsule (20 mg) by mouth daily. 04/25/2022 Active sertraline (ZOLOFT) 100 MG tablet Take 1 Tablet (100 mg) by mouth daily. 05/18/2022 Active cholecalciferol (VITAMIN D3) 25 MCG (1000 UT) tablet Take 1 Tablet (1,000 Units) by mouth daily. Active phenytoin ER (DILANTIN) 100 MG extended release capsule 1 tablet in the AM, 1 tablet in the afternoon, 2 tablets in the evening (total dose 400mg) 360 Capsule 3 07/09/2022 Active Active Problems Problem Noted Date Diagnosed Date Vitamin B12 deficiency 05/16/2022 Vitamin D insufficiency 05/16/2022 Mixed dyslipidemia 05/16/2022 Overview: ASCVD 10 year risk 5%. 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 Surg in 2000 Last seizure 2008 Pt on dilantin and sees neurology at [facility] Symptomatic menopausal or female climacteric sta mark 05/27/2009 Overview: LW Onset: 02/2008 ; Menopause Convulsions 12/23/2008 Overview: Seizure NOS Restless legs syndrome (RLS) 12/23/2008 Overview: Restless Leg Syndrome Insomnia 12/23/2008 Overview: Insomnia NOS Allergic rhinitis 12/23/2008 Overview: Rhinitis Allergic NOS Restless legs syndrome 07/11/2006 Overview: Restless Leg Syndrome Anxiety 04/01/2006 Insomnia 04/01/2006 Overview: Insomnia NOS Urinary incontinence 05/22/2004 Overview: LW Onset: [id number] ; Incontinence Urinary NOS Disorder of bone and cartilage 05/22/2004 Overview: LW Onset: 10Tzc11 ; Osteopenia Migraine 03/08/2003 Overview: LW Onset: 82Ztc16 ; 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 LW Onset: 81Jkc32 ; Arteriovenous Malformation Depression, major, in remission Anxiety Chronic tension headaches Fibrocystic breast disease Restless leg syndrome Immunizations Name Administration Dates Next Due Flu Vac Preserv Free (3+yrs) 12/04/2009,12/24/19 09,01/04/2006,02/18/2004 TDAP (ADACEL) 01/04/2006 Family History Medical History Relation Name Comments Arthritis Mother Relation Name Status Comments Mother Alive Social History Tobacco Use Types Packs/Day Years Used Date Smoking Tobacco: Some Days Comments:Quit smoking: Alcohol Use Standard Drinks/Week Comments No 0 (1 standard drink = 0.6 oz pure alcohol) Alcoholic Drinks/day: Freq:Never; Sex and Gender Information Value Date Recorded Sex Assigned at Not on file Gender Identity Not on file Sexual Orientation Not on file Last Filed Vital Signs Vital Sign Reading Time Taken Comments Blood Pressure 116/66 07/09/2022 1:48 PM CDT Pulse 80 07/09/2022 1:48 PM CDT Temperature 36.2 ??C (97.2 ??F) 03/31/2020 2:15 PM CS T Respiratory Rate 15 07/09/2022 1:48 PM CDT Oxygen Saturation - - Inhaled Oxygen Concentration - - Weight 72.1 kg (159 lb) 03/31/2020 2:15 PM BUSINESS SYSTEMS ANALYST Height 160 cm (5' 3) 03/31/2020 2:15 PM BUSINESS SYSTEMS ANALYST Body Mass Index 28.17 03/31/2020 2:15 PM BUSINESS SYSTEMS ANALYST Plan of Treatment Health Maintenance Due Date Last Done Comments Colon Cancer Screening Plan Due 1955 Hep C Screening (Preventive Services) 1955 Medicare Annual Wellness Visit 1955 Mammogram 05/31/2012 06/01/2011, 04/2009, 07/11/2008 Cholesterol 04/15/2015 04/15/2010, 09/25/1997 Dexa 2022 DTaP/Tdap/Td (4 - Tdap) 09/19/2022 09/20/19 13, 09/01/2007, 01/04/2006 COVID-19 Vaccine ( season) 2022 02/10/2022, 10/28/2021, 02/23/2021, Additional history exists Influenza (#1) 2022 02/10/2022, 01/27, 12/10/2019, Additional history exists Zoster/Shingles Completed 12/10/2019, 11/26, 03/02/2019, Additional history exists Pneumococcal 65+ Yrs Completed 02/10/2022 HepA Aged Out No longer eligi ble based on patient's age to complete this topic HepB Aged Out No longer eligi ble based on patient's age to complete this topic Hib Aged Out No longer eligi ble based on patient's age to complete this topic IPV (Polio) Aged Out No longer eligi ble based on patient's age to complete this topic MCV4 Aged Out No longer eligi ble based on patient's age to complete this topic Procedures Procedure Name Priority Date/Time Associated Diagnosis Comments MM MAMMOGRAM SCREENING BILAT W CAD Routine 06/01/2011 12:35 PM BUSINESS SYSTEMS ANALYST Routine gynecological examination LIPID PANEL & DIRECT LDL (IF NEEDED) Routine 04/15/2010 1:56 PM BUSINESS SYSTEMS ANALYST from Last 3 Months or Most Recently Relevant to Health Maintenance Results * (ABNORMAL) MM Mammogram Screening Bilat W CAD (06/01/2011 12:35 PM BUSINESS SYSTEMS ANALYST) Anatomical Region Laterality Modality Breast Bilateral Mammography Impressions 06/01/2011 2:31 PM BUSINESS SYSTEMS ANALYST IMPRESSION: RIGHT BREAST: Architectural distortion posteriorly. Spot compression and ultrasound are recommended at this time. LEFT BREAST: Negative, no evidence of malignancy. Normal interval follow-up is recommended in 12 months. OVERALL ASSESSMENT - CATEGORY 0 - INCOMPLETE: NEED ADDITIONAL IMAGING EVALUATION END OF IMPRESSION SJW Narrative 06/01/2011 2:31 PM BUSINESS SYSTEMS ANALYST Comparison is made to films from 11/27/2009 (bilateral) and films from 07/11/2008 (bilateral). Right Breast Findings: The breast is extremely dense (greater than 75% fibroglandular) which could obscure a lesion on mammography. An area of architectural distortion is present posteriorly and is seen only in the Medial Lateral Oblique Right projection superiorly. Left Breast Findings: The breast is extremely dense (greater than 75% fibroglandular) which could obscure a lesion on mammography. No significant masses, calcifications or other abnormalities are seen. Procedure Note Edith Orozco MD - 11/25/2015 Comparison is made to films from 11/27/2009 (bilateral) and films from 07/11/2008 (bilateral). Right Breast Findings: The breast is extremely dense (greater than 75% fibroglandular) which could obscure a lesion on mammography. An area of architectural distortion is present posteriorly and is seen only in the Medial Lateral Oblique Right projection superiorly. Left Breast Findings: The breast is extremely dense (greater than 75% fibroglandular) which could obscure a lesion on mammography. No significant masses, calcifications or other abnormalities are seen. IMPRESSION IMPRESSION: RIGHT BREAST: Architectural distortion posteriorly. Spot compression and ultrasound are recommended at this time. LEFT BREAST: Negative, no evidence of malignancy. Normal interval follow-up is recommended in 12 months. OVERALL ASSESSMENT - CATEGORY 0 - INCOMPLETE: NEED ADDITIONAL IMAGING EVALUATION END OF IMPRESSION SJW Deandra Webb MD RAD AARON * (ABNORMAL) Lipid Panel and Direct LDL(If Needed) (04/15/2010 1:56 PM BUSINESS SYSTEMS ANALYST) Cholesterol 264(H) 0 - 200 mg/dL HP CONVERSION Triglycerides 87 0 - 149 mg/dL HP CONVERSION HDL Cholesterol 83 >39 mg/dL HP CONVERSION Cholesterol/HDL Ratio Screen 3.2 No normal range HP CONVERSION LDL Calculated 164(H) 19 - 130 mg/dL HP CONVERSION Hours Fasting 12 No normal range HP CONVERSION 04/15/2010 1:56 PM BUSINESS SYSTEMS ANALYST Deandra Webb MD LAB_1 HP CONVERSION from Last 3 Months or Most Recently Relevant to Health Maintenance Care Teams Promotional Advertising Assistant Relationship Specialty Start Date End Date Alek Jones MD [address], [address] [address] PCP - General Family Practice 03/17/20
--- OUTSIDE RECORDS SUMMARY | 2023-07-05 14:18 | XMS_ITS | Encounter Summary ---
Author Name Unknown Organization [facility] Address [facility] [place] [address] Care Team Providers Care Clay Plant Treater Name Role Phone Jeramie Sterling MD Primary Care Provider Elodia Rose Oliveira Marcie STRETCHER AND DRIER Unavailable [phone] Estela Dacosta Primary Care Provi nnamdi Kelley Love MD Primary Care Provider [phone] Alek Jones MD Primary Care Provide r Alek Jones MD Unavailable [phone] Alek Jones MD Unavailable [phone] Alexa Simon PA-C Unavailable + [phone] Alexa Simon PA-C Unavailable + [phone] Alek Jones MD Unavailable [phone] [place] Unavailable Alexa Simon PA-C Unavailable + [phone] Alek Jones MD Unavailable [phone] Neelima Shukla DO Primary Care Provider [phone] Brayden Du MD Unavailable Reason for Visit * Reason Comments Medication Refill Encounter Details Date Type Department Care Team (Late st Contact Info) Description 02/18/2015 Refill [facility] [address] [place] [address] [phone] Jeramie Sterling MD XXXX RESIGNED/INACTIVE XXXX Medication Refill Social History Tobacco Use Types Packs/Day Years Used Date Smoking Tobacco: Former Smokeless Tobacco: Never Alcohol Use Standard Drinks/Week Comments No 0 (1 standard drink = 0.6 oz pur e alcohol) Sex and Gender Information Value Date Recorded Sex Assigned at Female 02/28/2021 1:24 PM DEVELOPER PROVER UPHOLSTERING Gender Identity Female 02/28/2021 1:23 PM DEVELOPER PROVER UPHOLSTERING Sexual Orientation Straight 02/28/2021 1: 20 PM DEVELOPER PROVER UPHOLSTERING documented as of this encounter Miscellaneous Notes * Telephone Encounter - Jeramie Sterling MD - 02/18/2015 11:54 AM DEVELOPER PROVER UPHOLSTERING IS THIS A NEW MED, NO DX, HAVE WE RX IN PAST, ?? LOPER PROVER UPHOLSTERING * Telephone Encounter - Deloris Eddy CMA - 02/18/2015 8:00 AM CST Pending Prescriptions: Disp Refills PROCTOZONE-HC 2.5 % rectal cream [Pharmac*30 g 0 Sig: INSERT 1 APPLICATION RECTALLY THREE TIMES DAILY FOR 10 DAYS You never prescribed this, are you willing to fill? Please associate dx code LOPER PROVER UPHOLSTERING documented in this encounter Plan of Treatment Not on file documented as of this encounter Visit Diagnoses Not on filedocumented in this encounter Additional Health Concerns Infection Onset Date Last Indicated Resolved Time 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/07/2020 11/07/2020 11/09/2020 1:31 AM CDT documented as of this encounter Care Teams Clay Plant Treater Relationship Specialty Start Date End Date Jeramie Sterling MD PCP - General Family Practice 07/24/14 11/09/15 Estela Dacosta PA PCP - General Family Practice 11/10/15 12/17/15 Kelley Love MD [address] , [address] [address] PCP - General Family Practice 12/18/15 03/17/16 Alek Jones MD [address] [address] PCP - General Family Practice 03/18/16 01/11/22 [place] [address] [place] [address] PCP - General Family Medicine 01/12/22 Rose Pelletier [facility] Fabrication Mig Welder 09/19/14 07/10/20 Alek Jones MD [address] [place] [address] Assigned PCP 04/08/19 05/24/20 Alek Jones MD [address] [place] [address] Assigned PCP 12/25/17 03/31/19 Alexa Simon PA-C [address], [address] [address] Assigned PCP 04/01/19 04/07/19 Alexa Simon PA-C [address] [address] Assigned PCP 05/25/20 06/07/20 Alek Jones MD [address] [place] [address] Assigned PCP 06/08/20 02/14/21 [place] [address] [address] F[facility] Facility 10/27/20 11/14/20 Alexa Simon PA-C [address] [address] Assigned PCP 02/15/21 02/28/21 Alek Jones MD [address] [address] Assigned PCP 03/01/21 Brayden Du MD [address] [place] [address] [id number] [place] [address] MD Reynolds 05/06/22 documented as of this encounter
--- OUTSIDE RECORDS SUMMARY | 2023-07-05 14:18 | XMS_ITS | Encounter Summary ---
Author Name Unknown Organization [facility] Address [address] [facility] [place] [address] Care Team Providers Care Nutrition Aide Name Role Phone Jeramie Sterling MD Primary Care Provider Elodia Rose Oliveira Marcie RAIL CREW MEMBER Unavailable [phone] Estela Dacosta Primary Care Provi nnamdi Kelley Love MD Primary Care Provider [phone] Alek Jones MD Primary Care Provide r Alek Jones MD Unavailable [phone] Alek Jones MD Unavailable [phone] Alexa Simon PA-C Unavailable + [phone] Alexa Simon PA-C Unavailable + [phone] Alek Jones MD Unavailable [phone] [place] Unavailable Alexa Simon PA-C Unavailable + [phone] Alek Jones MD Unavailable [phone] Neelima Shukla DO Primary Care Provider [phone] Brayden Du MD Unavailable Reason for Visit * Reason Onset Date Comments MH/CD Inpatient 07/30/2014 Other Encounter Details Date Type Department Care Team ([facility] Contact Info) Description 07/30/2014 Telephone [facility] [address] [place] [address] Generic, Behavioral MD Suleman MH/CD Inpatient; Social History Tobacco Use Types Packs/Day Years Used Date Smoking Tobacco: Former Smokeless Tobacco: Never Alcohol Use Standard Drinks/Week Comments No 0 (1 standard drink = 0.6 oz pur e alcohol) Sex and Gender Information Value Date Recorded Sex Assigned at Female 02/28/2021 1:24 PM LOADING UNIT OPERATOR CRIMPING Gender Identity Female 02/28/2021 1:23 PM LOADING UNIT OPERATOR CRIMPING Sexual Orientation Straight 02/28/2021 1: 20 PM LOADING UNIT OPERATOR CRIMPING documented as of this encounter Miscellaneous Notes * Telephone Encounter - Nino Flores, RN - 07/30/2014 3:09 PM CDT S: Patient presents to [place] ED brought in by friends with a bed held for detox. Dr. Amaral provides clinical. B: Patient has been using 4.0mg Klonopin that is prescribed. Patient reports using Klonopin for years. Patient took her last dose of Klonopin last evening. Patient also took an Ativan this morning Patient ran out early this month. Patient has a seizure disorder that is unrelated to withdrawal. Patient's seizures are well controled with Dilantin and Neurontin. Patient denies acute mental health symptoms but does have a diagnosis of depression and anxiety. A: Patient has been medically assessed and cleared for admission. Patient is cooperative and voluntary. R: Admit to station 3a, [facility] CD, [place] accepts. documented in this encounter Plan of Treatment Not on file documented as of this encounter Visit Diagnoses Not on filedocumented in this encounter Additional Health Concerns Infection Onset Date Last Indicated Resolved Time 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/07/2020 11/07/2020 11/09/2020 1:31 AM CDT documented as of this encounter Care Teams Nutrition Aide Relationship Specialty Start Date End Date Jeramie Sterling MD PCP - General Family Practice 07/24/14 11/09/15 Estela Dacosta PA PCP - General Family Practice 11/10/15 12/17/15 Kelley Love MD [address], [address] [address] PCP - General Family Practice 12/18/15 03/17/16 Alek Jones MD [address], [address] [address] PCP - General Family Practice 03/18/16 01/11/22 [place] [address] [place] [address] PCP - General Family Medicine 01/12/22 Rose Pelletier RAIL CREW MEMBER Urban Renewal Manager 09/19/14 07/10/20 Alek Jones MD [address], [address] [address] Assigned PCP 04/08/19 05/24/20 Alek Jones MD [address], [address] [address] Assigned PCP 12/25/17 03/31/19 Alexa Simon PA-C [address], [address] [address] Assigned PCP 04/01/19 04/07/19 Alexa Simon PA-C [address], [address] [address] Assigned PCP 05/25/20 06/07/20 Alek Jones MD [address] , [address] [address] Assigned PCP 06/08/20 02/14/21 [place] [address] [id number] Snf Facility 10/27/20 11/14/20 Alexa Simon PA-C [address], [address] [address] Assigned PCP 02/15/21 02/28/21 Alek Jones MD [address], [address] [address] Assigned PCP 03/01/21 Brayden Du MD [address] [place] [address] [id number] [place] [address] MD Reynolds 05/06/22 documented as of this encounter
--- OUTSIDE RECORDS SUMMARY | 2023-07-05 14:18 | XMS_ITS | Encounter Summary ---
Author Name Unknown Organization [place] Address [address] [place] [address] Care Team Providers Care Account Executive Name Role Phone Alek Jones MD Primary Care Provide r Alek Jones MD Unavailable [phone] [place]([facility] Unavailable Alexa Simon PA-C Unavailable + [phone] Alek Jones MD Unavailable [phone] Neelima Shukla DO Primary Care Provider [phone] Brayden Du MD Unavailable Encounter Details Date Type Department Care Team (Late st Contact Info) Description 07/31/2020 Documentation Only INTERFACED REPORT Unknown, Provider Social History Tobacco Use Types Packs/Day Years Used Date Smoking Tobacco: Light Smoker Smokeless Tobacco: Never Comments:1 cigarette a week Alcohol Use Standard Drinks/Week Comments Yes 0 (1 standard drink = 0.6 oz pur e alcohol) 2 drinks twice a week AUDIT-C Answer Date Recorded Q1: How often do you have a drink containing alc ohol? 2-3 times a week 04/04/2019 Q2: How many drinks containi ng alcohol do you have on a typical day when you are drinking? 1 or 2 04/04/2019 Frequency of Binge Drinking Not on file 10/2019 PHQ-2 Answer Date Recorded PHQ-2 Score 2 06/02/2020 Sex and Gender Information Value Date Recorded Sex Assigned at Female 02/28/2021 1:24 PM SENIOR CONSULTANT Gender Identity Female 02/28/2021 1:23 PM SENIOR CONSULTANT Sexual Orientation Straight 02/28/2021 1: 20 PM SENIOR CONSULTANT documented as of this encounter Plan of Treatment Not on file documented as of this encounter Visit Diagnoses Not on filedocumented in this encounter Additional Health Concerns Infection Onset Date Last Indicated Resolved Time 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/07/2020 11/07/2020 11/09/2020 1:31 AM CDT Assessment Noted Time PHQ-9 Depression Total Score: 11 021 3:32 PM SENIOR CONSULTANT documented as of this encounter Care Teams Account Executive Relationship Specialty Start Date End Date Aelk Jones MD [address], [address] [address] PCP - General Family Practice 03/18/16 01/11/22 [place] [address] [facility] [place] [address] PCP - General Family Medicine 01/12/22 Alek Jones MD [address] , [address] [address] Assigned PCP 06/08/20 02/14/21 [place]([facility] [address] Retirement Facility 10/27/20 11/14/20 Alexa Simon PA-C [address], [address] [address] Assigned PCP 02/15/21 02/28/21 Alek Jones MD [address], [address] [address] Assigned PCP 03/01/21 ManBrayden mancuso MD [address] [facility] [id number] [place] [address] Neurology 05/06/22 documented as of this encounter
--- OUTSIDE RECORDS SUMMARY | 2023-07-05 14:18 | XMS_ITS | Encounter Summary ---
Author Name Unknown Organization [place] Address [facility] [place] [address] Care Team Providers Care Organic Preparation Technician Name Role Phone Alek Jones MD Unavailable [phone] Neelima Shukla DO Primary Care Provider [phone] Brayden Du MD Unavailable Reason for Visit * Reason Comments Fall Sled out of her WC Encounter Details Date Type Department Care Team (Late st Contact Info) Description 06/06/2023 10:35 AM CDT - 06/06/2023 7:56 PM CDT Emergency [facility] Emergency Dept [address] [place] [address] Kimmy Cisneros DO [facility] [address] [place] [id number] Fall, initial encounter; Hip pain, left; Urinary tract infection without hematuria, site unspecified; Alcoholic intoxication without complication (H24); Iron deficiency anemia, unspecified iron deficiency anemia type Discharge Disposition: Home or Self Care Social [...] Sex Assigned at Female 02/28/2021 1:24 PM DOUBLE CUT SAWYER Gender Identity Female 02/28/2021 1:23 PM DOUBLE CUT SAWYER Sexual Orientation Straight 02/28/2021 1: 20 PM DOUBLE CUT SAWYER documented as of this encounter Last Filed Vital Signs Vital Sign Reading Time Taken Comments Blood Pressure 101/80 06/06/2023 5:45 PM CDT Pulse 116 06/06/2023 5:45 PM CDT Temperature 36.7 ??C (98.1 ??F) 06/06/2023 10:41 AM C DT Respiratory Rate 20 06/06/2023 10:41 AM CDT Oxygen Saturation 93% 06/06/2023 5:45 PM CDT Inhaled Oxygen Concentration - - Weight - - Height - - Body Mass Index - - documented in this encounter Discharge Instructions * Discharge Instructions* Kimmy Cisneros DO - 06/06/2023 2:03 PM CDT Take the antibiotics as directed until complete Follow-up with your primary care doctor in 1 to 2 days Return to the ER for any worsening or concerning symptoms * Attachments The following attachments cannot be sent through Care Everywhere. * Alcohol Intoxication: Acute (Australian) * Joint Pain (Australian) * UTI (Urinary Tract Infection): Female (Australian) documented in this encounter Medications at Time [...] 0 12/31/2014 hydrocortisone, Perianal, (PROCTOZONE-HC) 2.5 % creamIndications:Child Welfare Counselor al hemorrhoids Place rectally 2 times daily [...] daily 0 documented as of this encounter ED Notes * Kvng Knight RN - 06/06/2023 10:42 AM CDT Here from independent living as she sled out of her WC about 2 hours ago and called for assistance.Left sided weakness from a brain surgery in 2000, progressively worse per pt. Receives QUALITY ASSURANCE ASSISTANT servicesTuesday-, says she does drink alcohol last yesterday. Lower extremity swelling, worse on left. Found on the floor soaked with urine. Incontinent at baseline, stage 2 pressure ulcers on coccyx/groin area. Triage Assessment (Adult) Row Name 06/06/23 1042 Triage Assessment Airway WDL WDL Respiratory WDL Respiratory WDL WDL Skin Circulation/Temperature WDL Skin Circulation/Temperature WDL X * Tanja Flowers RN - 06/06/2023 10:35 AM CDT Bed: ED16 Expected date: Expected time: Means of arrival: Comments: Star 592 * Kimmy Cisneros DO - 06/06/2023 10:34 AM CDT History Chief Complaint: Fall The history is provided by the patient. Sultana Mueller is a 67 year old female with a history of alcohol abuse, cerebral aneurysm, and seizure disorder who presents with a mechanical fall. She slipped out of her wheel chair earlier this morning, and eventually called EMS to bring her to the ED. Upon arrival to the ED, she endorses having left hip pain. States she has chronic swelling to the left lower extremity. She also has some left-sided weakness and garbled speech, but they are not new symptoms. Patient states that she has had chronic left-sided weakness since the procedure that was done over 10 years ago. She is been wheelchair-bound for several years. She admits to drinking alcohol frequently, and her last drink was yesterday. However, her oral intake has been good lately. She denies any head injury. Denies any neck pain. She denies neck pain, abdominal pain, fever, or chills. Independent Historian: None - Patient Only Review of External Notes: Last seen in the ER for alcohol intoxication March 07, 2023. Medications: Cyclobenzaprine Gabapentin Phenytoin Propranolol ER Ropinirole Sertraline Sumatriptan Past Medical History: Adjustment disorder Alcohol abuse Depressive disorder GERD Migraine Seizure disorder Sleep apnea DDD, cervical USAMA RLS Insomnia Hepatic steatosis Cerebral aneurysm Vitamin B12 deficiency Vitamin D insufficiency Sepsis Fibrocystic breast disease Past Surgical History: Unspecified back pain R carpal tunnel release Cervical fusion Tonsillectomy L ankle ORIF L humerus ORIF Cervical fusion & diskectomy Intracranial aneurysm repair Cerebral aneurysm repair Physical Exam Patient Vitals for the past 24 hrs: BP Temp Temp src Pulse Resp SpO2 06/06/23 1350 135/61 -- -- (!) 133 -- -- 06/06/23 1041 132/66 98.1 ??F (36.7 ??C) Oral (!) 135 20 95 % Physical Exam Vitals reviewed. Constitutional: General: She is not in acute distress. Appearance: She is not ill-appearing. HENT: Head: Normocephalic and atraumatic. Eyes: Extraocular Movements: Extraocular movements intact. Cardiovascular: Rate and Rhythm: Normal rate and regular rhythm. Pulmonary: Effort: Pulmonary effort is normal. No respiratory distress. Breath sounds: Normal breath sounds. No wheezing. Abdominal: Palpations: Abdomen is soft. Tenderness: There is no abdominal tenderness. There is no right CVA tenderness, left CVA tendernessor guarding. Musculoskeletal: Cervical back: Normal range of motion. Comments: No midline cervical, thoracic, or spine tenderness. Pelvis stable. Sensation grossly intact in bilateral lower extremities. Distal pulses intact, 2+ DP pulse. Skin: General: Skin is warm and dry. Comments: Stage II decubitus sacral ulcer. Neurological: Mental Status: She is alert and oriented to person, place, and time. GCS: GCS eye subscore is 4. GCS verbal subscore is 5. GCS motor subscore is 6. Psychiatric: Behavior: Behavior normal. Emergency Department Course ECG ECG taken at 1114, ECG read at 1117 Sinus tachycardia Possible Inferior infarct, age undetermined Abnormal ECG Rate 131 bpm. OH interval 112 ms. QRS duration 72 ms. QT/QTc 408/602 ms. P-R-T axes 27 70 31. Imaging: XR Pelvis w Hip Left 1 View Final Result IMPRESSION: No acute fracture or malalignment. Mild degenerative changes throughout the pelvis and lower lumbar spine. Osteopenia. JAZIEL SANDOVAL MD SYSTEM ID: [id number] Head CT w/o contrast Final Result IMPRESSION: 1. No acute intracranial pathology. 2. 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 NAIMA OCAMPO MD SYSTEM ID: [id number] XR Chest 2 Views Preliminary Result IMPRESSION: Mild bibasilar opacities may be related to atelectasis or infection. No pneumothorax. Pulmonary vascularity is within normal limits. No pleural effusions. ACDF. US Lower Extremity Venous Duplex Left Final Result IMPRESSION: No evidence of deep venous thrombosis. EVER PEDRO MD Results per radiology Laboratory: Labs Ordered and Resulted from Time of ED Arrival to Time of ED Departure COMPREHENSIVE METABOLIC PANEL - Abnormal Result Value Sodium 146 (*) Potassium 3.6 Carbon Dioxide (CO2) 25 Anion Gap 17 (*) Urea Nitrogen 3.6 (*) Creatinine 0.47 (*) GFR Estimate >90 Calcium 8.2 (*) Chloride 104 Glucose 109 (*) Alkaline Phosphatase 218 (*) AST 111 (*) ALT 31 Protein Total 6.3 (*) Albumin 3.1 (*) Bilirubin Total 0.4 ROUTINE UA WITH MICROSCOPIC REFLEX TO CULTURE - Abnormal Color Urine Yellow Appearance Urine Slightly Cloudy (*) Glucose Urine Negative Bilirubin Urine Negative Ketones Urine Trace (*) Specific [place] Urine 1.020 Blood Urine Small (*) pH Urine 5.0 Protein Albumin Urine 30 (*) Urobilinogen Urine Normal Nitrite Urine Negative Leukocyte Esterase Urine Moderate (*) Bacteria Urine Many (*) Mucus Urine Present (*) RBC Urine 4 (*) WBC Urine 21 (*) Squamous Epithelials Urine 7 (*) ETHYL ALCOHOL LEVEL - Abnormal Alcohol ethyl 0.10 (*) CBC WITH PLATELETS AND DIFFERENTIAL - Abnormal WBC Count 9.4 RBC Count 3.36 (*) Hemoglobin 9.5 (*) Hematocrit 30.5 (*) MCV 91 MCH 28.3 MCHC 31.1 (*) RDW 16.3 (*) Platelet Count 396 % Neutrophils 66 % Lymphocytes 19 % Monocytes 11 % Eosinophils 3 % Basophils 1 % Immature Granulocytes 0 NRBCs per 100 WBC 0 Absolute Neutrophils 6.2 Absolute Lymphocytes 1.8 Absolute Monocytes 1.1 Absolute Eosinophils 0.3 Absolute Basophils 0.1 Absolute Immature Granulocytes 0.0 Absolute NRBCs 0.0 MAGNESIUM - Normal Magnesium 1.8 TROPONIN T, HIGH SENSITIVITY - Normal Troponin T, High Sensitivity 12 NT PROBNP INPATIENT - Normal N terminal Pro BNP Inpatient 64 CK TOTAL - Normal CK 83 URINE CULTURE Emergency Department Course & Assessments: Interventions: Medications nicotine (NICORETTE) gum 2 mg (2 mg Buccal $Given 06/06/23 1340) cephALEXin (KEFLEX) capsule 500 mg (has no administration in time range) sodium chloride 0.9% BOLUS 1,000 mL (has no administration in time range) sodium chloride 0.9% BOLUS 500 mL (500 mLs Intravenous $New Bag 06/06/23 1115) HYDROcodone-acetaminophen (NORCO) 5-325 MG per tablet 1 tablet (1 tablet Oral $Given 06/06/23 1340) Assessments: ED Course as of 06/07/23 0625 TueJun 06, 2023 1039 I obtained history and examined the patient as noted above. 1137 D/w Damian, boyfriend on the phone. States that pt cannot walk, and needs lift chair. States pt does not have resources. States she needs to dry out. States pt has been drinking wine. States that pt has been in wheelchair for 2-3 years. 1210 Alcohol ethyl(!): 0.10 1328 I reassessed the patient and updated her on imaging results. Also updated her on blood work. Sitting comfortably. She is requesting pain medications for chronic back pain. I did discuss with herat length regarding discharge home versus staying in the hospital. There is concerns regarding patient being able to care for herself per her boyfriend Gavino. Patient states that she is able to care for self she has a QUALITY ASSURANCE ASSISTANT that comes 4 days a week. She states that she is able to transition from her wheelchair to her bed in the toilet without any problem. States that she feeds herself. States that she does not want to stay in the hospital. She reports no complaints other than her chronic back pain. I did emphasize and discussed at length with her multiple times regarding staying in the hospital. She states she is feels safe at home. 1353 WBC Urine(!): 21 1353 Mucus Urine(!): Present 1353 Bacteria Urine(!): Many 1353 Nitrite Urine: Negative 1452 Patient reevaluated heart rate was elevated on prior reassessment. IV fluids given. Patient sitting comfortably talking on the phone. Heart rate improved on my reexamination. Plan for discharge at this time. 1522 Pt continues to be tachy. Reviewed med list pt currently on propranolol. No home meds today. Social Determinants of Health affecting care: Hx of Polysubstance Abuse and Failure to Thrive in Adult Disposition: The patient was discharged. Impression & Plan [facility] Diagnoses: None Medical Decision Makin-year-old female history of alcohol abuse, seizures disorder presents today with mechanical fall.Reportedly she slipped fell out of her wheelchair. States that she fell onto her left side. States that she has chronic left-sided weakness for years. She is wheelchair-bound reportedly her boyfriendstates that she is been a wheelchair for the last 2 to 3 years. She does have a history of alcohol abuse does admit to drinking last night and this morning. She states that she had no head injury today. She reports chronic leg swelling as well as chronic back pain. Denies any new back pain. Found to be tachycardic on arrival. Likely related to alcohol intoxication. Imaging studies and lab work ordered. Patient also reported concern for possible UTI. UA also ordered. Lab work significant for normal troponin. She had slight drop in her hemoglobin at 9.5. Patient states that she has had no history of any recent GI bleeding, blood in her stools or sources of bleeding. She was given IV fluids while in the ER. Her alcohol level was 0.1. UA did show some signs of infection with moderate leukocyte esterase and bacteria. She was given a dose of Keflex here as well as a prescription for home. Patient was offered admission for further assistance for placement. She states that she plans to go to assisted living. Explained to the patient if she is unable to care for self and feels unsafe going home she can be admitted. She states that she does not want to be admitted. States that she is able to manage at this time at home and will contact assisted living for placement. HR improved after propranolol. Stable for discharge. Diagnosis: ICD-10-CM 1. Fall, initial encounter W19.XXXA 2. Hip pain, left M25.552 3. Urinary tract infection without hematuria, site unspecified N39.0 4. Alcoholic intoxication without complication (H24) F10.920 5. Iron deficiency anemia, unspecified iron deficiency anemia type D50.9 Discharge Medications: Current Discharge Medication List START taking these medications Details cephALEXin (KEFLEX) 500 MG capsule Take 1 capsule (500 mg) by mouth 4 times daily Qty: 28 capsule, Refills: 0 Scribe Disclosure: I, Lukas Mendenhall, am serving as a scribe at 10:48 AM on 06/06/2023 to document services personally performed by Kimmy Cisneros DO based on my observations and the provider's statements to me. 06/06/2023 Kimmy Cisneros DO Doan, Tiffani, DO 06/07/23 0626 documented in this encounter Plan of Treatment Not on file documented as of this encounter Procedures Procedure Name Priority Date/Time Associated Diagnosis Comments ROUTINE UA WITH MICROSCOPIC REFLEX TO CULTURE STAT 06/06/2023 1:37 PM CDT URINE CULTURE STAT 06/06/2023 1:37 PM CDT XR PELVIS AND HIP LEFT 1 VIEW STAT 06/06/2023 1:[address] HEAD W/O CONTRAST STAT 06/06/2023 12:27 PM CDT XR CHEST 2 VIEWS STAT 06/06/2023 12:1 4 PM CDT US LOWER EXTREMITY VENOUS DUPLEX LEFT STAT 06/06/2023 12:03 PM CDT EKG 12-LEAD, TRACING ONLY STAT 06/06/2023 11:14 AM CDT EXTRA GREEN TOP (LITHIUM HEPARIN) ON ICE STAT 06/06/2023 11:04 AM CDT EXTRA TUBE STAT 06/06/2023 11:04 AM CDT EXTRA TUBE STAT 06/06/2023 11:04 AM CDT EXTRA BLOOD CULTURE BOTTLE STAT 06/06/2023 11:04 AM CDT EXTRA RED TOP TUBE STAT 06/06/2023 11 :04 AM CDT EXTRA BLUE TOP TUBE STAT 06/06/2023 1 1:04 AM CDT CBC WITH PLATELETS AND DIFFERENTIAL STAT 06/06/2023 11:04 AM CDT TROPONIN T, HIGH SENSITIVITY STAT 06/06/2023 11:04 AM CDT CBC WITH PLATELETS & DIFFERENTIAL STAT 06/06/2023 11:04 AM CDT NT PROBNP INPATIENT STAT 06/06/2023 1 1:04 AM CDT MAGNESIUM STAT 06/06/2023 11:04 AM CDT COMPREHENSIVE METABOLIC PANEL STAT 06/06/2023 11:04 AM CDT CK TOTAL Add-On 06/06/2023 11:04 AM CDT ETHYL ALCOHOL LEVEL STAT 06/06/2023 1 1:04 AM CDT documented in this encounter Results * (ABNORMAL) Urine Culture (06/06/2023 1:37 PM CDT) Pathologist [facility] Culture 50,000-100,000 CFU/mL Escherichia coli(A) 06/07/2023 9:45 [...] coli Cefazolin JANICE <=4 ug/mL: Susceptible Comment:Cefazolin LA C breakpoints are for the treatment of [...] - MICRO GENERAL ORDERABLES UU IDD LABORATORY [facility] Inf. Diseases Diag. Lab [address] [facility], [address] [place] [id number] * (ABNORMAL) UA with Microscopic reflex to [...] 06/06/2023 1:53 PM CDT RH LABORATORY Specific [place] Urine 1.020 1.003 - 1.035 06/06/2023 1:53 [...] 21(H) <=5 /HPF 06/06/2023 1:53 PM CDT LABORATORY Squamous Epithelials Urine 7(H) <=1 /HPF 06/06/2023 1:53 PM CDT LABORATORY Urine MID-STREAM URINE SPECIMEN / Unknown Non-blood Collection / Unknown 06/06/2023 1:37 PM CDT 06/06/2023 1:42 PM CDT Narrative LABORATORY - 06/06/2023 1:53 PM CDT Urine Culture ordered based on laboratory criteria Kimmy Cisneros DO LAB - URINE ORDERABL ES LABORATORY [facility] Acute Care Lab [address] Lab (1st floor, no room number) [place] [address], [facility] * XR Pelvis w Hip Left 1 View (06/06/2023 1:01 PM CDT) Anatomical Region Laterality Modality Abdomen/Pelvis Left Digital Radiogra phy Impressions 06/06/2023 1:16 PM CDT IMPRESSION: No acute fracture or malalignment. Mild degenerative changes throughout the pelvis and lower lumbar spine. Osteopenia. JAZIEL SANDOVAL MD SYSTEM ID: ??[id number] Narrative 06/06/2023 1:16 PM CDT XR PELVIS [...] spine. Osteopenia. JAZIEL SANDOVAL MD SYSTEM ID: [id number] Kimmy Blayne DO IMG DIAGNOSTIC IMAGI NG [...] aneurysm coiling. NAIMA OCAMPO MD SYSTEM ID: ??[id number] Narrative 06/06/2023 12:41 PM CDT EXAM: CT HEAD W/O CONTRAST ??06/06/2023 12:27 PM HISTORY: ??fall ?? COMPARISON: ??Head CT 07/08/2015 TECHNIQUE: Using multidetector thin collimation helical acquisition technique, axial, coronal and sagittal CT images from the skull base to the vertex were obtained without intravenous contrast. Shoe Treer (topogram) image(s) also obtained and reviewed. Dose [...] the vertex were obtained without intravenous contrast. Shoe Treer (topogram) image(s) also obtained and reviewed. Dose [...] aneurysm coiling. NAIMA OCAMPO MD SYSTEM ID: [id number] Kimmy Cisneros DO [facility] ORDERABLES * XR Chest 2 Views [...] ACDF. DIPESH BLACK MD Kimmy Cisneros DO [facility] DIAGNOSTIC IMAGI NG ORDERABLES * US Lower [...] thrombosis. EVER PEDRO MD Kimmy Cisneros DO [place] US ORDERABLES * EKG 12-lead, tracing only (06/06/2023 11:14 AM CDT) Systolic Blood Pressure mmHg RADIOLOGY RESULTS Diastolic Blood Pressure mmHg RADIOLOGY RESULTS Ventricular Rate 131 BPM RAD IOLOGY RESULTS Atrial Rate 133 BPM RADIOLOG Y RESULTS OH Interval 112 ms RADIOLOG Y RESULTS QRS Duration 72 ms RADIOLO GY RESULTS QT 408 ms RADIOLOGY RESULTS QTc 602 ms RADIOLOGY RESULTS P [place] 27 degrees RADIOLOGY RESULTS R AXIS 70 degrees RADIOLOGY RESULTS T [place] 31 degrees RADIOLOGY RESULTS Interpretation ECG Sinus [...] Confirmed by - EMERGENCY ROOM, PHYSICIAN ([id number]), sound editor Aureliano Castellanos ([id number]) on 06/06/2023 3:26:20 PM RADIOLOGY RESULTS 06/06/2023 11:1 4 AM CDT 06/06/2023 3:26 PM CDT Kimmy Cisneros DO ECG ORDERABLES RADIOLOGY RESULTS * CK total (06/06/2023 11:04 AM CDT) CK 83 26 - 192 U/L 06/06/2023 1:07 PM CDT RH LABORATORY Blood VENOUS LINE / Unknown Venipuncture / Unknown 06/06/2023 11:04 AM CDT 06/06/2023 11:17 AM CDT Kimmy Cisneros DO LAB - BLOOD ORDERABL ES LABORATORY [facility] Acute [facility] Lab [address] Lab (1st floor, no room number) [place] [address], [facility] * Extra Blood Culture Bottle (06/06/2023 11:04 AM CDT) Hold Specimen JIC 06/06/2023 12:32 PM CDT RH LABORATORY Blood VENOUS LINE / Unknown Venipuncture / Unknown 06/06/2023 11:04 AM CDT 06/06/2023 11:17 AM CDT Kimmy Cisneros DO LAB - BLOOD ORDERABL ES Performing Organization Address [facility]/ZIP Co de Phone Number [facility] Lab [address] Lab (1st floor, no room number) [place] [phone] [place] [address] * Extra Green Top ([place] Heparin) ON ICE (06/06/2023 11:04 AM CDT) Hold Specimen [facility] 06/06/2023 12:32 PM CDT RH LABORATORY Blood VENOUS LINE / Unknown Venipuncture / Unknown 06/06/2023 11:04 AM CDT 06/06/2023 11:17 AM CDT Kimmy Cisneros DO LAB - BLOOD ORDERABL ES Performing Organization Address [facility]/ZIP Co de Phone Number [facility] Lab [address] Lab (1st floor, no room number) [place] [phone] * Extra Red Top Tube (06/06/2023 11:04 AM CDT) Hold Specimen [facility] 06/06/2023 12:32 PM CDT RH LABORATORY Blood VENOUS LINE / Unknown Venipuncture / Unknown 06/06/2023 11:04 AM CDT 06/06/2023 11:17 AM CDT Kimmy Cisneros DO LAB - BLOOD ORDERABL ES Performing Organization Address [facility]/ZIP Co de Phone Number [facility] Care Lab [address] Lab (1st floor, no room number) [place] [phone] * Extra Blue Top Tube (06/06/2023 11:04 AM CDT) Hold Specimen [facility] 06/06/2023 12:32 PM CDT RH LABORATORY Blood VENOUS LINE / Unknown Venipuncture / Unknown 06/06/2023 11:04 AM CDT 06/06/2023 11:17 AM CDT Kimmy Cisneros DO LAB - BLOOD ORDERABL ES RH LABORATORY [facility] Lab [address] Lab (1st floor, no room number) [place] [address], [facility] * (ABNORMAL) CBC with platelets and differential (06/06/2023 11:04 AM CDT) WBC Count 9.4 4.0 - 11.0 10e3/uL 06/06/2023 11:21 AM CDT RH LABORATORY RBC Count 3.36(L) 3.80 - 5.20 10e6/uL 06/06/2023 11:21 AM CDT RH LABORATORY Hemoglobin 9.5(L) 11.7 - 15.7 g/dL 06/06/2023 11:21 AM CDT RH LABORATORY Hematocrit 30.5(L) 35.0 - 47.0 % 06/06/2023 11:21 AM CDT RH LABORATORY MCV 91 78 - 100 fL 06/06/2023 11:21 AM CDT RH LABORATORY MCH 28.3 26.5 - 33.0 pg 06/06/2023 11:21 AM CDT RH LABORATORY MCHC 31.1(L) 31.5 - 36.5 g/dL 06/06/2023 11:21 AM CDT RH LABORATORY RDW 16.3(H) 10.0 - 15.0 % 06/06/2023 11:21 AM CDT RH LABORATORY Platelet Count 396 150 - 450 10e3/uL 06/06/2023 11:21 AM CDT RH LABORATORY % Neutrophils 66 % 06/06/2023 11:21 AM CDT RH LABORATORY % Lymphocytes 19 % 06/06/2023 11:21 AM CDT RH LABORATORY % Monocytes 11 % 06/06/2023 11:21 AM CDT RH LABORATORY % Eosinophils 3 % 06/06/2023 11:21 AM CDT RH LABORATORY % Basophils 1 % 06/06/2023 11:21 AM CDT RH LABORATORY % Immature Granulocytes 0 % 06/06/2023 11:21 AM CDT RH LABORATORY NRBCs per 100 WBC 0 <1 /100 024 11:21 AM CDT RH LABORATORY Absolute Neutrophils 6.2 1.6 - 8.3 10e3/uL 06/06/2023 11:21 AM CDT RH LABORATORY Absolute Lymphocytes 1.8 0.8 - 5.3 10e3/uL 06/06/2023 11:21 AM CDT RH LABORATORY Absolute Monocytes 1.1 0.0 - 1.3 10e3/uL 06/06/2023 11:21 AM CDT RH LABORATORY Absolute Eosinophils 0.3 0.0 - 0.7 10e3/uL 06/06/2023 11:21 AM CDT RH LABORATORY Absolute Basophils 0.1 0.0 - 0.2 10e3/uL 06/06/2023 11:21 AM CDT RH LABORATORY Absolute Immature Granulocytes 0.0 <=0.4 10e3/uL 06/06/2023 11:21 AM CDT RH LABORATORY Absolute NRBCs 0.0 10e3/uL 06/06/2023 11:21 AM CDT RH LABORATORY Blood VENOUS LINE / Unknown Venipuncture / Unknown 06/06/2023 11:04 AM CDT 06/06/2023 11:17 AM CDT Kimmy Cisneros DO LAB - BLOOD ORDERABL ES LABORATORY [facility] Lab [address] Lab (1st floor, no room number) [place] [address] [phone] * Nt probnp inpatient (BNP) (06/06/2023 11:04 [...] Cisneros DO LAB - BLOOD ORDERABL ES [facility] Lab [address] Lab (1st floor, no room number) [place] [address] * Troponin T, High Sensitivity (06/06/2023 [...] Cisneros DO LAB - BLOOD ORDERABL ES [facility] Lab [address] Lab (1st floor, no room number) [place] [address], [facility] * (ABNORMAL) Ethyl Alcohol Level (06/06/2023 11:04 AM CDT) Alcohol ethyl 0.10(H) <=0.01 g/dL 06/06/2023 12:07 PM CDT LABORATORY Blood VENOUS LINE / Unknown Venipuncture / Unknown 06/06/2023 11:04 AM CDT 06/06/2023 11:17 AM CDT Kimmy Cisneros DO LAB - BLOOD ORDERABL ES Performing Organization Address City/[facility]/ZIP Co de Phone Number [facility] Lab [address] Lab (1st floor, no room number) [place] [phone] * Magnesium (06/06/2023 11:04 AM CDT) Magnesium 1.8 1.7 - 2.3 mg/dL 06/06/2023 12:07 PM CDT LABORATORY Blood VENOUS LINE / Unknown Venipuncture / Unknown 06/06/2023 11:04 AM CDT 06/06/2023 11:17 AM CDT Kimmy Cisneros DO LAB - BLOOD ORDERABL Performing Organization Address [facility]/ZIP Co de Phone Number [facility] Lab [address] Lab (1st floor, no room number) [place], [place] [address] * (ABNORMAL) Comprehensive metabolic panel (06/06/2023 [...] AM CDT 06/06/2023 11:17 AM CDT Kimmy Blayne [facility] - BLOOD ORDERABL ES [facility] [address] (1st floor, no room number) [place] [address], [facility] documented in this encounter Visit Diagnoses Diagnosis Fall, initial encounter Hip pain, left Pain in joint, pelvic region and thigh Urinary tract infection without hematuria, site unspecified Alcoholic intoxication without complication (H24) Iron deficiency anemia, unspecified iron deficiency anemia type documented in this encounter Administered Medications Inactive Administered Medications - up to 3 most recent administrations Medication Order MAR Action Action Date Dose Rate Site cephALEXin (KEFLEX) capsule 500 mg STAT, 500 mg, Oral, ONCE, On Tue06/06/23 at 1355, For 1 dose, Indications: Urinary Tract Infection $Given 06/06/2023 2:11 PM CDT 500 mg HYDROcodone-acetaminophen (NORCO) 5-325 MG per tablet 1 tablet 1 tablet, Oral, ONCE, On Tue06/06/23 at 1335, For 1 dose, Maximum acetaminophen dose from all sources= 75 mg/kg/day not to exceed 4 grams $Given 06/06/2023 1:40 PM CDT 1 tablet nicotine (NICORETTE) gum 2 mg 2 mg, Buccal, EVERY 1 HOUR PRN, nicotine withdrawal symptoms, Starting on Tue06/06/23 at 1325, Gum should be chewed slowly until it tingles, then placed between cheek and gum: when tingle gone, repeat process until tingle gone (about 30 minutes). $Given 06/06/2023 1:40 PM CDT 2 mg propranolol ER (INDERAL LA) 24 hr capsule 60 mg 60 mg, Oral, ONCE, On Tue06/06/23 at 1525, For 1 dose, DO NOT CRUSH. $Given 06/06/2023 3:49 PM CDT 60 mg sodium chloride 0.9% BOLUS 1,000 mL Intravenous, 1,000 mL, ONCE, at 1,000 mL/hr, Administer over 1 Hours, On Tue06/06/23 at 1405, For 1 dose $New Bag 06/06/2023 2:12 PM CDT 1,000 mLs 1000 mL/hr sodium chloride 0.9% BOLUS 500 mL Intravenous, 500 mL, ONCE, at 500 mL/hr, Administer over 1 Hours, On Tue06/06/23 at 1055, For 1 dose $New Bag 06/06/2023 11:15 AM CDT 500 mLs 500 mL/hr documented in this encounter Active and Recently Administered Medications Due to Daylight Saving Time, this section may contain times in both DOUBLE CUT SAWYER and CDT. Scheduled Medication Order 06/04/2023 06/05/2023 06/06/2023 cephALEXin (KEFLEX) capsule 500 mg (COMPLETED) STAT, 500 mg, Oral, ONCE, On Tue06/06/23 at 1355, For 1 dose, Indications: Urinary Tract Infection 1411 ($Given - Provi nnamdi: Kvng Knight RN) HYDROcodone-acetaminophen (NORCO) 5-325 MG per tablet 1 tablet (COMPLETED) 1 tablet, Oral, ONCE, On Tue06/06/23 at 1335, For 1 dose, Maximum acetaminophen dose from all sources= 75 mg/kg/day not to exceed 4 grams 1340 ($Given - Provi nnamdi: Kvng Knight RN) propranolol ER (INDERAL LA) 24 hr capsule 60 mg (COMPLETED) 60 mg, Oral, ONCE, On Tue06/06/23 at 1525, For 1 dose, DO NOT CRUSH. 1549 ($Given - Provi nnamdi: Kvng Knight RN) sodium chloride 0.9% BOLUS 1,000 mL (COMPLETED) Intravenous, 1,000 mL, ONCE, at 1,000 mL/hr, Administer over 1 Hours, On Tue06/06/23 at 1405, For 1 dose 1412 ($New Bag - Pro vider: Kvng Knight RN)1645 (Stopped - Provider: Kvng Knight RN) sodium chloride 0.9% BOLUS 500 mL (COMPLETED) Intravenous, 500 mL, ONCE, at 500 mL/hr, Administer over 1 Hours, On Tue06/06/23 at 1055, For 1 dose 1115 ($New Bag - Pro vider: Kenyatta Castellon RN)1645 (Stopped - Provider: Kvng Knight RN) PRN Medication Order 06/04/2023 06/05/2023 06/06/2023 nicotine (NICORETTE) gum 2 mg 2 mg, Buccal, EVERY 1 HOUR PRN, nicotine withdrawal symptoms, Starting on Tue06/06/23 at 1325, Gum should be chewed slowly until it tingles, then placed between cheek and gum: when tingle gone, repeat process until tingle gone (about 30 minutes). 1340 ($Given - Provi nnamdi: Kvng Knight RN) documented in this encounter Additional Health Concerns Assessment Noted Time PHQ-9 Depression Total Score: 9 02/18/20 21 7:30 AM DOUBLE CUT SAWYER documented as of this encounter Care Teams Organic Preparation Technician Relationship Specialty Start [place] [address] [facility] [place] [address] PCP - General Family Medicine 01/12/22 Alek Jones MD [address] [address] Assigned PCP 03/01/21 Brayden Du MD [address] [facility] [id number] [place] [address] Neurology 05/06/22 documented as of this encounter
--- OUTSIDE RECORDS SUMMARY | 2023-07-05 14:18 | XMS_ITS | Encounter Summary ---
Author Name Unknown Organization [place] Address [address] [place] [address] Care Team Providers Care Recreation Therapist Name Role Phone Jeramie Sterling MD Primary Care Provider Elodia Rose Oliveira Marcie MILL REPRESENTATIVE Unavailable [phone] Estela Dacosta Primary Care Provi nnamdi Kelley Love MD Primary Care Provider [phone] Alek Jones MD Primary Care Provide r Alek Jones MD Unavailable +[phone] Alek Jones MD Unavailable [phone] Alexa Simon PA-C Unavailable + [phone] Alexa Simon PA-C Unavailable + [phone] Alek Jones MD Unavailable +[phone] [facility] Unavailable Alexa Simon PA-C Unavailable + [phone] Alek Jones MD Unavailable +[phone] Neelima Shukla DO Primary Care Provider [phone] Brayden Du MD Unavailable Reason for Visit * Reason Comments Other Encounter Details Date Type Department Care Team ([facility] Contact Info) Description 08/02/2014 Telephone [facility] Behavioral Health Intake [address] [place] [address] Generic, Behavioral Intake, Social History Tobacco Use Types Packs/Day Years Used Date Smoking Tobacco: Former Smokeless Tobacco: Never Alcohol Use Standard Drinks/Week Comments No 0 (1 standard drink = 0.6 oz pur e alcohol) Sex and Gender Information Value Date Recorded Sex Assigned at Female 02/28/2021 1:24 PM CAREER SERVICES REPRESENTATIVE Gender Identity Female 02/28/2021 1:23 PM CAREER SERVICES REPRESENTATIVE Sexual Orientation Straight 02/28/2021 1: 20 PM CAREER SERVICES REPRESENTATIVE documented as of this encounter Miscellaneous Notes * Telephone Encounter - Chayo Fraire - 08/02/2014 1:57 PM CDT ----- Message from Mihaela Gillette sent at 08/02/2014 12:47 PM CDT ----- Regarding: Seniors DOP referral I will fax [facility] Courtesy Rule 25 and ask for them to contact [facility] [place] [facility] with authorization. * Telephone Encounter - Chayo Fraire - 08/02/2014 11:19 AM CDT 08-02-14 sent note back encouraging program to read Katia note re: funding. Scheduled orientation. fb * Telephone Encounter - Chayo Fraire - 08/02/2014 11:10 AM CDT ----- Message from Mihaela Gillette sent at 08/02/2014 10:59 AM CDT ----- Regarding: Senior DOP referral Patient has Medicare Scheduled for Orientation on 08/05/14@1:30 pm. [facility] Thank you documented in this encounter Plan of Treatment Not on file documented as of this encounter Visit Diagnoses Not on filedocumented in this encounter Additional Health Concerns Infection Onset Date Last Indicated Resolved Time 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/07/2020 11/07/2020 11/09/2020 1:31 AM CDT documented as of this encounter Care Teams Recreation Therapist Relationship Specialty Start Date End Date Jeramie Sterling MD PCP - General Family Practice 07/24/14 11/09/15 Estela Dacosta PA PCP - General Family Practice 11/10/15 12/17/15 Kelley Love MD [address] , [address] [address] PCP - General Family Practice 12/18/15 03/17/16 Alek Jones MD [address] , [address] [address] PCP - General Family Practice 03/18/16 01/11/22 [place] [address] [place] [address] PCP - General Family Medicine 01/12/22 Rose Pelletier, [facility] Alliance Consultant 09/19/14 07/10/20 Alek Jones MD [address] , [address] [address] Assigned PCP 04/08/19 05/24/20 Alek Jones MD [address] , [address] [address] Assigned PCP 12/25/17 03/31/19 Alexa Simon PA-C [address] , [address] [address] Assigned PCP 04/01/19 04/07/19 Alexa Simon PA-C [address] [address] Assigned PCP 05/25/20 06/07/20 Alek Jones MD [address], [address] [address] Assigned PCP 06/08/20 02/14/21 [facility] [address] [phone] [facility] 10/27/20 11/14/20 Alexa Simon PA-C [address] , [address] [address] Assigned PCP 02/15/21 02/28/21 Alek Jones MD [address] [address] Assigned PCP 03/01/21 Brayden Du MD [address] [place] [address] [id number] [place] [address] MD Reynolds 05/06/22 documented as of this encounter
--- OUTSIDE RECORDS SUMMARY | 2023-07-05 14:18 | XMS_ITS | Encounter Summary ---
Author Name Unknown Organization [place] Address [facility] [place] [address] Care Team Providers Care Supervisor Self Service Store Name Role Phone Jeramie Sterling MD Primary Care Provider Elodia Rose Oliveira Marcie ANIMAL DAMAGE CONTROL AGENT Unavailable [phone] Estela Dacosta Primary Care Provi nnamdi Kelley Love MD Primary Care Provider [phone] Alek Jones MD Primary Care Provide r Alek Jones MD Unavailable [phone] Alek Jones MD Unavailable +[phone] Alexa Simon PA-C Unavailable + [phone] Alexa Simon PA-C Unavailable + [phone] Alek Jones MD Unavailable +[phone] [place]([facility] Unavailable Alexa Simon PA-C Unavailable + [phone] Alek Jones MD Unavailable [phone] Neelima Shukla DO Primary Care Provider [phone] Brayden Du MD Unavailable Reason for Visit * Reason Comments Medication Refill Encounter Details Date Type Department Care Team (Late st Contact Info) Description 10/14/2014 Refill [facility] [address] [place] [address] [address] [place] [address] Jeramie Sterling MD XXXX RESIGNED/INACTIVE XXXX Medication Refill Social History Tobacco Use Types Packs/Day Years Used Date Smoking Tobacco: Former Smokeless Tobacco: Never Alcohol Use Standard Drinks/Week Comments No 0 (1 standard drink = 0.6 oz pur e alcohol) Sex and Gender Information Value Date Recorded Sex Assigned at Female 02/28/2021 1:24 PM FISHER TRAWL NET Gender Identity Female 02/28/2021 1:23 PM FISHER TRAWL NET Sexual Orientation Straight 02/28/2021 1: 20 PM FISHER TRAWL NET documented as of this encounter Plan of Treatment Not on file documented as of this encounter Visit Diagnoses Not on filedocumented in this encounter Additional Health Concerns Infection Onset Date Last Indicated Resolved Time 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/07/2020 11/07/2020 11/09/2020 1:31 AM CDT documented as of this encounter Care Teams Supervisor Self Service Store Relationship Specialty Start Date End Date Jeramie Sterling MD PCP - General Family Practice 07/24/14 11/09/15 Estela Dacosta PA PCP - General Family Practice 11/10/15 12/17/15 Kelley Love MD [address] [place] [address] PCP - General Family Practice 12/18/15 03/17/16 Alek Jones MD [address] [place] [address] PCP - General Family Practice 03/18/16 01/11/22 [place] [address] [place] [address] PCP - General Family Medicine 01/12/22 Rose Pelletier LSW Crook Operator 09/19/14 07/10/20 Alek Jones MD [address], [address] [address] Assigned PCP 04/08/19 05/24/20 Alek Jones MD [address], [address] [address] Assigned PCP 12/25/17 03/31/19 Alexa Simon PA-C [address] , [address] [address] Assigned PCP 04/01/19 04/07/19 Alexa Simon PA-C [address] , [address] [address] Assigned PCP 05/25/20 06/07/20 Alek Jones MD [address] , [address] [address] Assigned PCP 06/08/20 02/14/21 [place]([facility]), [address] [address] Prison Facility 10/27/20 11/14/20 Alexa Simon PA-C [address] , [address] [address] Assigned PCP 02/15/21 02/28/21 Alek Jones MD [address] , [address] [address] Assigned PCP 03/01/21 Brayden Du MD [address] [place] [address] [id number] [place] [address] Neurology 05/06/22 documented as of this encounter
--- OUTSIDE RECORDS SUMMARY | 2023-07-05 14:18 | XMS_ITS | Encounter Summary ---
Author Name Unknown Organization [place] Address [address] [place] [address]. [place] [address] Care Team Providers Care Sole Trimmer Name Role Phone Rose Pelletier RADIO BROADCASTER Unavailable [phone] Alek Jones MD Primary Care Provide r Alek Jones MD Unavailable [phone] Alek Jones MD Unavailable +[phone] Alexa Simon PA-C Unavailable + [phone] Alexa Simon PA-C Unavailable + [phone] Alek Jones MD Unavailable +[phone] [place]([facility]), [facility] Unavailable Alexa Simon PA-C Unavailable + [phone] Alek Jones MD Unavailable +[phone] Neelima Shukla DO Primary Care Provider [phone] Brayden Du MD Unavailable Encounter Details Date Type Department Care Team (Late st Contact Info) Description 12/19/2017 MyC Medical Advice [facility] Phys[facility] [address] [place] [address] Ana Mueller MA Social History Tobacco Use Types Packs/Day Years Used Date Smoking Tobacco: Former Smokeless Tobacco: Never Alcohol Use Standard Drinks/Week Comments No 0 (1 standard drink = 0.6 oz pur e alcohol) Sex and Gender Information Value Date Recorded Sex Assigned at Female 02/28/2021 1:24 PM SECTION GANG WORKER Gender Identity Female 02/28/2021 1:23 PM SECTION GANG WORKER Sexual Orientation Straight 02/28/2021 1: 20 PM SECTION GANG WORKER documented as of this encounter Plan of Treatment Not on file documented as of this encounter Visit Diagnoses Not on filedocumented in this encounter Additional Health Concerns Infection Onset Date Last Indicated Resolved Time 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/07/2020 11/07/2020 11/09/2020 1:31 AM CDT Assessment Noted Time PHQ-9 Depression Total Score: 5 07/15/19 18 7:37 AM CDT documented as of this encounter Care Teams Sole Trimmer Relationship Specialty Start Date End Date Alek Jones MD [address], [address] [address] PCP - General Family Practice 03/18/16 01/11/22 [place] [address] [place] [address] PCP - General Family Medicine 01/12/22 Rose Pelletier, [facility] Wood Treating Inspector 09/19/14 07/10/20 Alek Jones MD [address], [address] [address] Assigned PCP 04/08/19 05/24/20 Alek Jones MD [address] , [address] [address] Assigned PCP 12/25/17 03/31/19 Alexa Simon PA-C [address], [address] [address] Assigned PCP 04/01/19 04/07/19 Alexa Simon PA-C [address] , [address] [address] Assigned PCP 05/25/20 06/07/20 Alek Jones MD [address] , [address] [address] Assigned PCP 06/08/20 02/14/21 [place]([facility]), [address] [phone] [facility] 10/27/20 11/14/20 Alexa Simon PA-C [address] , [address] [address] Assigned PCP 02/15/21 02/28/21 Alek Jones MD [address] , [address] [address] Assigned PCP 03/01/21 Brayden Du MD [address] [place] [address] [id number] [place] [address] MD Reynolds 05/06/22 documented as of this encounter
--- OUTSIDE RECORDS SUMMARY | 2023-07-05 14:18 | XMS_ITS | Encounter Summary ---
Author Name Unknown Organization [place] Address [address] [place] [address]. [place] [address] Care Team Providers Care Head Operator Name Role Phone Rose Pelletier UPPER LINING CEMENTER Unavailable [phone] Alek Jones MD Primary Care Provide r Alek Jones MD Unavailable [phone] Alek Jones MD Unavailable [phone] Alexa Simon PA-C Unavailable + [phone] Alexa Simon PA-C Unavailable Alek Jones MD Unavailable +[phone]- [phone] [place]([facility] Unavailable Alexa Simon PA-C Unavailable + [phone] Alek Jones MD Unavailable +[phone] Neelima Shukla DO Primary Care Provider [phone] Brayden Du MD Unavailable Reason for Visit * Reason Comments Medication Refill Encounter Details Date Type Department Care Team (Late st Contact Info) Description 10/11/2016 Refill [facility] [address] [place] [address] [address] [place] [address] Alek Jones MD [address] [place] [address], [address] [id number] Medication Refill Social History Tobacco Use Types Packs/Day Years Used Date Smoking Tobacco: Former Smokeless Tobacco: Never Alcohol Use Standard Drinks/Week Comments No 0 (1 standard drink = 0.6 oz pur e alcohol) Sex and Gender Information Value Date Recorded Sex Assigned at Female 02/28/2021 1:24 PM FIRE BATTALION CHIEF Gender Identity Female 02/28/2021 1:23 PM FIRE BATTALION CHIEF Sexual Orientation Straight 02/28/2021 1: 20 PM FIRE BATTALION CHIEF documented as of this encounter Miscellaneous Notes * Telephone Encounter - Brooklyn Celestin - 10/11/2016 11:14 AM CDT Message left for Pt that a 30 day Rx refill was authorized, and pt should schedule a non fasting OV. * Telephone Encounter - Ana Mueller MA - 10/11/2016 8:31 AM CDT Jana[facility] in AV-30 Celexa Pt is due for ov NON fasting Jayna [phone] (home) documented in this encounter Plan of Treatment Not on file documented as of this encounter Visit Diagnoses Diagnosis USAMA (generalized anxiety disorder) Generalized anxiety disorder Major depressive disorder, recurrent episode, moderate (H) Major depressive disorder, recurrent episode, moderate documented in this encounter Additional Health Concerns Infection Onset Date Last Indicated Resolved Time 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/07/2020 11/07/2020 11/09/2020 1:31 AM CDT Assessment Noted Time PHQ-9 Depression Total Score: 13 017 7:16 AM FIRE BATTALION CHIEF documented as of this encounter Care Teams Head Operator Relationship Specialty Start Date End Date Alek Jones MD [address], [id number] [place] [address] PCP - General Family Practice 03/18/16 01/11/22 [place] [address] [place] [address] PCP - General Family Medicine 01/12/22 Rose Pelletier, UPPER LINING CEMENTER Tunnel Elastic Operator Lockstitch 09/19/14 07/10/20 Alek Jones MD [address], [id number] [place] [address] Assigned PCP 04/08/19 05/24/20 Alek Jones MD [address], [address] [address] Assigned PCP 12/25/17 03/31/19 Alexa Simon PA-C [address], [address] [place] [address] Assigned PCP 04/01/19 04/07/19 Alexa Simon PA-C [address], [address] [address] Assigned PCP 05/25/20 06/07/20 Alek Jones MD [address], [address] [address] Assigned PCP 06/08/20 02/14/21 [place](Fgs), [address] [phone] Prison Facility 10/27/20 11/14/20 Alexa Simon PA-C [address], [address] [place] [address] Assigned PCP 02/15/21 02/28/21 Alek Jones MD [address], [address] [address] Assigned PCP 03/01/21 Brayden Du MD [address] [facility] [id number] [place] [address] Neurology 05/06/22 documented as of this encounter
--- OUTSIDE RECORDS SUMMARY | 2023-07-05 14:18 | XMS_ITS | Encounter Summary ---
Author Name Unknown Organization [place] Address [facility] [place] [address] Care Team Providers Care Teacher Specialist Name Role Phone Jeramie Sterling MD Primary Care Provider Elodia Rose Oliveira Marcie ORTHOPEDIC RN Unavailable [phone] Estela Dacosta Primary Care Provi nnamdi Kelley Love MD Primary Care Provider [phone] Alek Jones MD Primary Care Provide r Alek Jones MD Unavailable [phone] Alek Jones MD Unavailable [phone] Alexa Simon PA-C Unavailable + [phone] Alexa Simon PA-C Unavailable + [phone] Alek Jones MD Unavailable +[phone] [place]([facility] Unavailable Alexa Simon PA-C Unavailable + [phone] Alek Jones MD Unavailable [phone] Neeilma Shukla DO Primary Care Provider [phone] Brayden Du MD Unavailable Reason for Visit * Reason Comments Medication Refill Encounter Details Date Type Department Care Team (Late st Contact Info) Description 11/12/2014 Refill [facility] [address] [place] [address] [address] [place] [address] Jeramie Sterling MD XXXX RESIGNED/INACTIVE XXXX Medication Refill Social History Tobacco Use Types Packs/Day Years Used Date Smoking Tobacco: Former Smokeless Tobacco: Never Alcohol Use Standard Drinks/Week Comments No 0 (1 standard drink = 0.6 oz pur e alcohol) Sex and Gender Information Value Date Recorded Sex Assigned at Female 02/28/2021 1:24 PM PRODUCTION INTERN Gender Identity Female 02/28/2021 1:23 PM PRODUCTION INTERN Sexual Orientation Straight 02/28/2021 1: 20 PM PRODUCTION INTERN documented as of this encounter Miscellaneous Notes * Telephone Encounter - Edyta Haney - 11/12/2014 7:54 AM CDT Do you wish to refill for another 30 days or refuse? Pending Prescriptions: Disp Refills citalopram (CELEXA) 40 MG tablet [Pharmac*30 tab*0 Sig: TAKE 1 TABLET BY MOUTH DAILY documented in this encounter Plan of Treatment Not on file documented as of this encounter Visit Diagnoses Diagnosis Adjustment disorder with mixed anxiety and depressed mood- Primary documented in this encounter Additional Health Concerns Infection Onset Date Last Indicated Resolved Time 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/07/2020 11/07/2020 11/09/2020 1:31 AM CDT documented as of this encounter Care Teams Teacher Specialist Relationship Specialty Start Date End Date Jeramie Sterling MD PCP - General Family Practice 07/24/14 11/09/15 Estela Dacosta PA PCP - General Family Practice 11/10/15 12/17/15 Kelley Love MD [address] [id number] PCP - General Family Practice 12/18/15 03/17/16 Alek Jones MD [address] [address] PCP - General Family Practice 03/18/16 01/11/22 [place] [address] [place] [address] PCP - General Family Medicine 01/12/22 Rose Pelletier [facility] Orthotic Fitter 09/19/14 07/10/20 Alek Jones MD [address], [address] [address] Assigned PCP 04/08/19 05/24/20 Alek Jones MD [address], [address] [address] Assigned PCP 12/25/17 03/31/19 Alexa Simon PA-C [address], [address] [address] Assigned PCP 04/01/19 04/07/19 Alexa Simon PA-C [address] [address] [address] Assigned PCP 05/25/20 06/07/20 Alek Jones MD [address], [address] [address] Assigned PCP 06/08/20 02/14/21 [place](s), [address] [phone] Prison Facility 10/27/20 11/14/20 Alexa Simon PA-C [address] [place] [address] [address] [place] [address] Assigned PCP 02/15/21 02/28/21 Alek Jones MD [address] [address] [address] Assigned PCP 03/01/21 Brayden Du MD [address] [place] [place] [address] [id number] [place] [address] Neurology 05/06/22 documented as of this encounter
--- OUTSIDE RECORDS SUMMARY | 2023-07-05 14:18 | XMS_ITS | Encounter Summary ---
Author Name Unknown Organization [place] Address [facility] [place] [address] Care Team Providers Care Office Receptionist Name Role Phone Jeramie Sterling MD Primary Care Provider Elodia Rose Oliveira Marcie PACKING ROOM INSPECTOR Unavailable [phone] Estela Dacosta Primary Care Provi nnamdi Kelley Love MD Primary Care Provider [phone] Alek Jones MD Primary Care Provide r Alek Jones MD Unavailable [phone] Alek Jones MD Unavailable [phone] Alexa Simon PA-C Unavailable + [phone] Alexa Simon PA-C Unavailable + [phone] Alek Jones MD Unavailable +[phone] [place] Unavailable Alexa Simon PA-C Unavailable + [phone] Alek Jones MD Unavailable [phone] Neelima Shukla DO Primary Care Provider [phone] Brayden Du MD Unavailable Reason for Visit * Reason Comments Medication Refill Encounter Details Date Type Department Care Team (Late st Contact Info) Description 02/17/[address] [facility] [address] [place] [address] [address] [place] [address] Jeramie Sterling MD XXXX RESIGNED/INACTIVE XXXX Medication Refill Social History Tobacco Use Types Packs/Day Years Used Date Smoking Tobacco: Former Smokeless Tobacco: Never Alcohol Use Standard Drinks/Week Comments No 0 (1 standard drink = 0.6 oz pur e alcohol) Sex and Gender Information Value Date Recorded Sex Assigned at Female 02/28/2021 1:24 PM CAKE FORMER Gender Identity Female 02/28/2021 1:23 PM CAKE FORMER Sexual Orientation Straight 02/28/2021 1: 20 PM CAKE FORMER documented as of this encounter Miscellaneous Notes * Telephone Encounter - Ana Mueller MA - 02/17/2015 11:50 AM CST Pending Prescriptions: Disp Refills ANUCORT-HC 25 MG suppository [Pharmacy Me*28 sup*0 Sig: UNWRAP AND INSERT ONE SUPPOSITORY RECTALLY TWICE DAILY Pt received a refill last year.09-04-2013. I talked to pt, she states that she still uses these. Do you need to see her? Please fax or adviseAna [phone] (home) none (work) FORMER documented in this encounter Plan of Treatment Not on file documented as of this encounter Visit Diagnoses Diagnosis Internal hemorrhoids- Primary Internal hemorrhoids without mention of complication documented in this encounter Additional Health Concerns Infection Onset Date Last Indicated Resolved Time 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/07/2020 11/07/2020 11/09/2020 1:31 AM CDT documented as of this encounter Care Teams Office Receptionist Relationship Specialty Start Date End Date Jeramie Sterling MD PCP - General Family Practice 07/24/14 11/09/15 Estela Dacosta PA PCP - General Family Practice 11/10/15 12/17/15 Kelley Love MD [address] , [address] [address] PCP - General Family Practice 12/18/15 03/17/16 Alek Jones MD [address], [address] [address] PCP - General Family Practice 03/18/16 01/11/22 [place] [address] [place] [address] PCP - General Family Medicine 01/12/22 Rose Pelletier, [facility] Production Broaching Machine Operator 09/19/14 07/10/20 Alek Jones MD [address], [address] [address] Assigned PCP 04/08/19 05/24/20 lAek Jones MD [address], [address] [address] Assigned PCP 12/25/17 03/31/19 Alexa Simon PA-C [address], [address] [address] Assigned PCP 04/01/19 04/07/19 Alexa Simon PA-C [address], [address] [address] Assigned PCP 05/25/20 06/07/20 Alek Jones MD [address], [address] [address] Assigned PCP 06/08/20 02/14/21 Center([facility]), [facility] [address] [place] [phone] Assisted Facility 10/27/20 11/14/20 Alexa Simon PA-C [address] [address] [place] [address] Assigned PCP 02/15/21 02/28/21 Alek Jones MD [address] , [address] [address] Assigned PCP 03/01/21 Brayden Du MD [address] [place] [address] [id number] [place] [address] MD Reynolds 05/06/22 documented as of this encounter
--- OUTSIDE RECORDS SUMMARY | 2023-07-05 14:18 | XMS_ITS | Encounter Summary ---
Author Name Unknown Organization [place] Address [address] [place] [address]. [place] [address] Care Team Providers Care Atomic Process Engineer Name Role Phone Rose Pelletier DIRECT RESPONSE CONSULTANT Unavailable [phone] Alek Jones MD Primary Care Provide r Alek Jones MD Unavailable [phone] Alek Jones MD Unavailable [phone] Alexa Simon PA-C Unavailable + [phone] Alexa Simon PA-C Unavailable + [phone] Alek Jones MD Unavailable [phone] [place]([facility]), [facility] Unavailable Alexa Simon PA-C Unavailable + [phone] Alek Jones MD Unavailable [phone] Neelima Shukla DO Primary Care Provider [phone] Brayden Du MD Unavailable Encounter Details Date Type Department Care Team (Late st Contact Info) Description 11/10/2016 MyC Medical Advice [facility] [address] [place] [address] Ana Mueller MA Social History Tobacco Use Types Packs/Day Years Used Date Smoking Tobacco: Former Smokeless Tobacco: Never Alcohol Use Standard Drinks/Week Comments No 0 (1 standard drink = 0.6 oz pur e alcohol) Sex and Gender Information Value Date Recorded Sex Assigned at Female 02/28/2021 1:24 PM FRONT MAKER LOCKSTITCH Gender Identity Female 02/28/2021 1:23 PM FRONT MAKER LOCKSTITCH Sexual Orientation Straight 02/28/2021 1: 20 PM FRONT MAKER LOCKSTITCH documented as of this encounter Plan of Treatment Not on file documented as of this encounter Visit Diagnoses Not on filedocumented in this encounter Additional Health Concerns Infection Onset Date Last Indicated Resolved Time 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/07/2020 11/07/2020 11/09/2020 1:31 AM CDT Assessment Noted Time PHQ-9 Depression Total Score: 13 017 7:16 AM FRONT MAKER LOCKSTITCH documented as of this encounter Care Teams Atomic Process Engineer Relationship Specialty Start Date End Date Alek Jones MD [address] , [address] [address] PCP - General Family Practice 03/18/16 01/11/22 [place] [address] [place] [address] PCP - General Family Medicine 01/12/22 Rose Pelletier, [facility] Dipper Operator 09/19/14 07/10/20 Alek Jones MD [address] , [address] [address] Assigned PCP 04/08/19 05/24/20 Alek Jones MD [address] , [address] [address] Assigned PCP 12/25/17 03/31/19 Alexa Simon PA-C [address] , [address] [address] Assigned PCP 04/01/19 04/07/19 Alexa Simon PA-C [address], [address] [address] Assigned PCP 05/25/20 06/07/20 Alek Jones MD [address], [address] [address] Assigned PCP 06/08/20 02/14/21 [place]([facility]), [address] [phone] [facility] Facility 10/27/20 11/14/20 Alexa Simon PA-C [address], [address] [address] Assigned PCP 02/15/21 02/28/21 Alek Jones MD [address], [address] [address] Assigned PCP 03/01/21 Brayden Du MD [address] [place] [address] [id number] [address] MD Reynolds 05/06/22 documented as of this encounter
--- OUTSIDE RECORDS SUMMARY | 2023-07-05 14:18 | XMS_ITS | Encounter Summary ---
Author Name Unknown Organization [place] Address [address] [facility] [place] [address] Care Team Providers Care Oyster Worker Name Role Phone Rose Pelletier NETWORK PRICING CONSULTANT Unavailable [phone] Alek Jones MD Primary Care Provide r Alek Jones MD Unavailable [phone] [place]([facility] Unavailable Alexa Simon PA-C Unavailable + [phone] Alek Jones MD Unavailable +[phone] Neelima Shukla DO Primary Care Provider [phone] Brayden Du MD Unavailable Encounter Details Date Type Department Care Team (Late st Contact Info) Description 07/10/2020 Documentation Only INTERFACED REPORT Unknown, Provider Social [...] Sex Assigned at Female 02/28/2021 1:24 PM CASTING TRUCKER Gender Identity Female 02/28/2021 1:23 PM CASTING TRUCKER Sexual Orientation Straight 02/28/2021 1: 20 PM CASTING TRUCKER documented as of this encounter Plan of Treatment Not on file documented as of this encounter Visit Diagnoses Not on filedocumented in this encounter Additional Health Concerns Infection Onset Date Last Indicated Resolved Time 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/07/2020 11/07/2020 11/09/2020 1:31 AM CDT Assessment Noted Time PHQ-9 Depression Total Score: 11 021 3:32 PM CASTING TRUCKER documented as of this encounter Care Teams Oyster Worker Relationship Specialty Start Date End Date Alek Jones MD [address] , [address] [address] PCP - General Family Practice 03/18/16 01/11/22 [place] [address] [place] [address] PCP - General Family Medicine 01/12/22 Rose Pelletier LSW Tank Tender 09/19/14 07/10/20 Alek Jones MD [address] , [address] [address] Assigned PCP 06/08/20 02/14/21 [place]([facility]), [address] [phone] Care Home Facility 10/27/20 11/14/20 Alexa Simon PA-C [address] , [address] [address] Assigned PCP 02/15/21 02/28/21 Alek Jones MD [address], [id number] [place] [address] Assigned PCP 03/01/21 Brayden Du MD [address] [facility] [id number] [place] [address] Neurology 05/06/22 documented as of this encounter
--- OUTSIDE RECORDS SUMMARY | 2023-07-05 14:18 | XMS_ITS | Encounter Summary ---
Author Name Unknown Organization [place] Address [facility] [place] [address] Care Team Providers Care Cooling Tower Technician Name Role Phone Jeramie Sterling MD Primary Care Provider Elodia Rose Oliveira Marcie BLEACHER PULP Unavailable [phone] Estela Dacosta Primary Care Provi nnamdi Kelley Love MD Primary Care Provider [phone] Alek Jones MD Primary Care Provide r Alek Jones MD Unavailable [phone] Alek Jones MD Unavailable [phone] Alexa Simon PA-C Unavailable + [phone] Alexa Simon PA-C Unavailable + [phone] Alek Jones MD Unavailable [phone] [place] Unavailable Alexa Simon PA-C Unavailable + [phone] Alek Jones MD Unavailable [phone] Neelima Shukla DO Primary Care Provider [phone] Brayden Du MD Unavailable Reason for Visit * Reason Comments Medication Refill Encounter Details Date Type Department Care Team (Late st Contact Info) Description 09/13/2014 Refill [facility] [address] [place] [address] [address] [place] [address] Jeramie Sterling MD XXXX RESIGNED/INACTIVE XXXX Medication Refill Social History Tobacco Use Types Packs/Day Years Used Date Smoking Tobacco: Former Smokeless Tobacco: Never Alcohol Use Standard Drinks/Week Comments No 0 (1 standard drink = 0.6 oz pur e alcohol) Sex and Gender Information Value Date Recorded Sex Assigned at Female 02/28/2021 1:24 PM RN PRIVATE DUTY Gender Identity Female 02/28/2021 1:23 PM RN PRIVATE DUTY Sexual Orientation Straight 02/28/2021 1: 20 PM RN PRIVATE DUTY documented as of this encounter Miscellaneous Notes * Telephone Encounter - Samreen Helton - 09/13/2014 8:06 AM CDT Received a fax from the patient's pharmacy requesting a refill of the following medication. Pending Prescriptions: Disp Refills SUMAtriptan (IMITREX) 100 MG tablet [Phar*9 tabl*0 Sig: TAKE 1 TABLET BY MOUTH AT ONSET OF HEADACHE Ready to be faxed when Rx is approved. Please close encounter when finished. Thanks, Samreen Thank-You, Samreen documented in this encounter Plan of Treatment Not on file documented as of this encounter Visit Diagnoses Diagnosis History of migraine- Primary Personal history of other disorders of nervous system and sense organs documented in this encounter Additional Health Concerns Infection Onset Date Last Indicated Resolved Time 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/07/2020 11/07/2020 11/09/2020 1:31 AM CDT documented as of this encounter Care Teams Cooling Tower Technician Relationship Specialty Start Date End Date Jeramie Sterling MD PCP - General Family Practice 07/24/14 11/09/15 Estela Dacosta PA PCP - General Family Practice 11/10/15 12/17/15 Kelley Love MD [address] , [address] [address] PCP - General Family Practice 12/18/15 03/17/16 Alek Jones MD [address], [address] [address] PCP - General Family Practice 03/18/16 01/11/22 [place] [address] [place] [address] PCP - General Family Medicine 01/12/22 Rose Pelletier, [facility] Net Sql Developer 09/19/14 07/10/20 Alek Jones MD [address], [address] [address] Assigned PCP 04/08/19 05/24/20 Alek Jones MD [address], [address] [address] Assigned PCP 12/25/17 03/31/19 Alexa Simon PA-C [address], [address] [address] Assigned PCP 04/01/19 04/07/19 Alexa Simon PA-C [address], [address] [address] Assigned PCP 05/25/20 06/07/20 Alek Jones MD [address], [address] [address] Assigned PCP 06/08/20 02/14/21 Center([facility]gs), [facility] [address] [place] [phone] Care Home Facility 10/27/20 11/14/20 Alexa Simon PA-C [address] [address] [place], [place] [address] Assigned PCP 02/15/21 02/28/21 Alek Jones MD [address] , [id number] [place], [place] [address] Assigned PCP 03/01/21 Brayden Du MD [address] [place] [address] [id number] [place] [address] MD Reynolds 05/06/22 documented as of this encounter
[2023-07-05 14:28] LABS: Albumin* 2.5 g/dL (3.3-5.0); Chloride* 103 mmol/L (96-114)
[2023-07-05 14:29] LABS: Potassium* 3.2 mmol/L (3.6-5.1); Sodium* 137 mmol/L (135-149)
[2023-07-05 14:31] LABS: Creatinine* 0.4 mg/dL (0.5-1.5); D Dimer Quantitative* 1.24 ug/ml (0.00-0.50); Est. Creatinine Clearance* 45.78; Estimated Glomerular Filt Rate 109 ml/min
[2023-07-05 14:32] LABS: Alanine Aminotransferase* 23 U/L (4-35); Alkaline Phosphatase* 184 U/L (40-150); Anion Gap 8 mEq/L (7-15); Aspartate Amino Transferase* 63 U/L (12-35); Bilirubin Direct* 0.4 mg/dL (0.0-0.5); Bilirubin Total* 0.8 mg/dL (0.1-1.5); Blood Urea Nitrogen* 11 mg/dL (7-30); Calcium* 7.6 mg/dL (8.4-10.6); Carbon Dioxide* 26 mmol/L (20-32); Ethanol* 0.08 % (0.01-0.03); Glucose* 85 mg/dL (60-115); Total Protein* 5.7 g/dL (6.0-8.3)
[2023-07-05 14:34] LABS: C Reactive Protein* 5.1 mg/dL (0.5-1.0)
[2023-07-05 14:42] LABS: NT Pro B Type NatriureticPept* 77 pg/mL
[2023-07-05 14:57] LABS: Amphetamine Screen Urine Negative (Negative); Barbiturate Screen Urine POSITIVE (Negative); Benzodiazepines Screen Urine Negative (Negative); Buprenorphine Screen Urine Negative (Negative); Cannabinoid Screen Urine Negative (Negative); Cocaine Screen Urine Negative (Negative); Methadone Screen Urine Negative (Negative); Methamphetamines Screen Urine Negative (Negative); Opiate Screen Urine Negative (Negative); Oxycodone Screen Urine Negative (Negative); Phencyclidine Screen Urine Negative (Negative); Tricyclic Antidepressant Urine Negative (Negative)
[2023-07-05 15:00] LABS: Appearance Urine Cloudy (Clear); Bilirubin Urine 1+ (Negative); Blood Urine 3+ (Negative); Color Urine Brown (Yellow); Glucose Urine Negative (Negative); Ketones Urine Trace (Negative); Leukocyte Esterase Urine 3+ (Negative); Nitrite Urine Positive (Negative); Protein Urine 3+ (Negative); pH Urine 5.5 (5.0-8.5)
[2023-07-05] MEDS: 0.9 % SODIUM CHLORIDE 1000 ml 1,000 ML IV ×3 (15:01→22:53)
[2023-07-05 15:07] LABS: Bacteria Urine Many; RBC Urine >100 (0-2); WBC Urine >100 (0-5)
--- NOTE | 2023-07-05 15:09 | CT_ITS ---
Patient: LEO NICHOLAS Facility:?[facility] Patient ID:?[id number] Site Patient ID:?[id number]. Site :?[id number] Study:?CT-Chest W/ 95CC ISOVUE-370 PE PROTOCOL-07/05/2023 4:46:09 PM Ordering Physician:Jessica Sales Final Report: INDICATION: Hematuria, UTI. TECHNIQUE: CT chest PE was acquired with 95 cc Isovue 370 IV contrast. COMPARISON: None. FINDINGS: Heart and vasculature: Contrast opacification of the pulmonary arterial tree is adequate. No sign of pulmonary embolism. Heart size is normal. Thoracic aorta and pulmonary artery are normal in caliber. Lungs and pleura: Linear opacities in the left lower lobe and lingula likely atelectasis. Mild bibasilar dependent ground-glass opacities likely atelectasis. Otherwise, no suspicious parenchymal opacities or nodules. No pleural effusions, pleural thickening, or pneumothorax. Lymph nodes/mediastinum: No mediastinal, hilar, or axillary adenopathy. Chest wall: No masses. Upper abdomen: Please see separately dictated CT of the abdomen and pelvis for further details. Bones: Multiple old left-sided rib fractures. Mild multilevel degenerative changes. IMPRESSION: No pulmonary embolism identified. No acute cardiopulmonary process identified. Please note that all CT scans at this facility use dose modulation, iterative reconstruction, and/or weight-based dosing when appropriate to reduce radiation dose to as low as reasonably achievable. Dictated by Kathleen Gill MD @ 07/05/2023 5:19:05 PM Signed by:?Kathleen Gill MD @07/05/2023 5:19:05 PM (Electronic Signature)
--- NOTE | 2023-07-05 15:09 | CT_ITS ---
Patient: LEO NICHOLAS Facility:?[facility] Patient ID:?[id number] Site Patient ID:?[id number]. Site :?1955 Study:?CT-Abdomen/Pelvis w/ 95cc ovfrrf-321-2/9/2024 4:46:07 PM Ordering Physician:Jessica Sales Final Report: INDICATION: Hematuria, UTI. TECHNIQUE: CT abdomen and pelvis acquired with 95 cc Isovue 370 IV contrast. COMPARISON: None. FINDINGS: Lower chest: Unremarkable. Liver: Severe diffuse hypodensity throughout the liver likely related to severe hepatic steatosis. Gallbladder and bile ducts: Unremarkable. No stones or inflammation. No biliary dilatation. Pancreas: Unremarkable. No mass or inflammation. Spleen: Unremarkable. Normal in size. No masses. Adrenal glands: Unremarkable. No nodules. Kidneys: Unremarkable. No suspicious masses, stones, or hydronephrosis. GI tract: Unremarkable. Normal in caliber. No sign of mass or inflammation. Normal appendix. Vasculature: Abdominal aorta is normal in caliber. Mesenteric arteries are patent. Lymph nodes: No lymphadenopathy. Peritoneum/Abdominal Wall: Unremarkable. No sign of mass or infiltration. No free air or significant free fluid. Pelvis: Circumferential bladder wall thickening with mild mucosal enhancement is noted. Fibroid within the uterus is noted, otherwise unremarkable. Bones: Unremarkable for age. IMPRESSION: 1. circumferential bladder wall thickening likely related to urinary infection. Correlate with UA. 2. No renal or ureteral stones or other lesions identified on this single phase CT. 3. Severe hepatic steatosis. Please note that all CT scans at this facility use dose modulation, iterative reconstruction, and/or weight-based dosing when appropriate to reduce radiation dose to as low as reasonably achievable. Dictated by Kathleen Gill MD @ 07/05/2023 5:14:40 PM Signed by:?Kathleen Gill MD @07/05/2023 5:14:40 PM (Electronic Signature)
[2023-07-05 15:15] LABS: Slide Review Reflex Yes
[2023-07-05 15:18] LABS: Slide Review Acceptable Review (Acceptable)
--- NOTE | 2023-07-05 15:33 | ED.GENADULT ---
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 She is wheelchair bound. She lives independently, has been having more difficulty over the past month or so with ADLs, was at the hospital at [facility] in the ER on June 05 and again on June 10 once for alcohol intoxication, once for a fall. Both times, concerns were noted about her ability to live independently. Occupational therapy was there to see her today and called 911 again because of concerns about inability for her to function. She acknowledges that her apartment is a disaster, she says she has a new scooter and is getting use to using it, has not been able to keep up with things as a result. Reportedly, she is not able to manage stool and urine, sits in fouled diapers much of the time. She does have home health come I believe 4 days a week. She says she has ample food, is able to eat and drink. She has noted hematuria recently, she has had diarrhea the past couple of days. She denies black or bloody stools. She has had worsening swelling in her legs. Skin breakdown was noted at her last ER visit at [facility] over the coccyx. She was apparently prescribed Keflex but has not taken it. She denies fevers. She notes that the left-sided weakness has gotten gradually worse over the years, but denies any acute focal weakness. Does acknowledge that her current living situation is not really working. There have apparently been people working on assisted living, but no one seems to have any idea where that process is at. Past medical history reviewed, includes anxiety and depression, alcohol abuse, GERD, migraine, chronic pain, seizure disorder, cerebral aneurysm. She has had alcohol withdrawal in the past, does not feel like she is withdrawing currently. Related Data Home Medications Medication Instructions Recorded Confirmed aspirin 81 mg chewable tablet 81 mg PO DAILY 07/05/23 07/05/23 calcium carbonate (Antacid 200 mg PO QID PRN 07/05/23 07/05/23 (calcium carbonate)) cholecalciferol (vitamin D3) 50 50 mcg PO DAILY 07/05/23 07/05/23 mcg (2,000 unit) capsule (Vitamin D3) citalopram 40 mg tablet 40 mg PO DAILY 07/05/23 07/05/23 clopidogrel 75 mg tablet 75 mg PO Q48H 07/05/23 07/05/23 cyanocobalamin (vitamin B-12) 1,000 mcg PO DAILY 07/05/23 07/05/23 1,000 mcg tablet folic acid 1 mg tablet 1 mg PO DAILY 07/05/23 07/05/23 metoprolol tartrate 50 mg tablet 50 mg PO BID blood pressure 07/05/23 07/05/23 mirtazapine 45 mg tablet 45 mg PO QPM 07/05/23 07/05/23 multivitamin 1 tab PO DAILY 07/05/23 07/05/23 nicotine (polacrilex) 4 mg buccal 4 mg buccal Q1-2H PRN 07/05/23 07/05/23 lozenge omeprazole 20 mg capsule,delayed 20 mg PO QAM 07/05/23 07/05/23 release phenytoin sodium extended 100 mg 100 mg PO BID@09,14 07/05/23 07/05/23 capsule phenytoin sodium extended 100 mg 200 mg PO HS 07/05/23 07/05/23 capsule (Dilantin Extended) pregabalin 300 mg capsule 300 mg PO BID 07/05/23 07/05/23 ropinirole 0.5 mg tablet 1.5 mg PO HS 07/05/23 07/05/23 rotigotine 2 mg/24 hour 1 patch topical DAILY 07/05/23 07/05/23 transdermal 24 hour patch (Neupro) sumatriptan succinate 100 mg tablet 100 mg PO BID PRN migraine 07/05/23 07/05/23 suvorexant 20 mg tablet (Belsomra) 20 mg PO HS 07/05/23 07/05/23 Allergies Allergy/AdvReac Type Severity Reaction Status Date / Time No Known Drug Allergies Allergy Verified 07/05/23 16:28 Review of Systems Status of ROS: Reports: 10 or more systems reviewed and unremarkable except as noted in History and below [facility] Medical History Alcohol use disorder ?F10.90 - Alcohol use, unspecified, uncomplicated (ICD-10) Restless leg syndrome ?G25.81 - Restless legs syndrome (ICD-10) Depression ?F32.A - Depression, unspecified (ICD-10) Hepatic steatosis ?K76.0 - Fatty (change of) liver, not elsewhere classified (ICD-10) History of CVA (cerebrovascular accident) ?Z86.73 - Personal history of transient ischemic attack (TIA), and cerebral infarction without residual deficits (ICD-10) Hypertension ?I10 - Essential (primary) hypertension (ICD-10) Dyslipidemia ?E78.5 - Hyperlipidemia, unspecified (ICD-10) Surgical History H/O brain surgery ?Z98.890 - Other specified postprocedural states (ICD-10) Exam Narrative: Exam Narrative: Vital signs as noted above. In general, an alert, nontoxic woman. She looks fatigued. Head: Normocephalic, atraumatic. Eyes: Pupils are equal reactive. Extraocular movements are full. Conjunctivae are normal. No scleral icterus. ENT: Mucous membranes are a little dry. No facial trauma. Neck: Supple without lymphadenopathy. Nontender palpation. Heart: Tachycardic and regular, no obvious murmur. Lungs: Clear bilaterally. No increased work of breathing, crackles or wheezes. Abdomen: Soft and nontender. In the inguinal folds bilaterally she has significant erythema, tissue is somewhat macerated. Back: Stage I pressure ulcer coccyx area. Extremities: Pitting edema bilateral lower extremities up to mid thigh. Some erythema is noted faintly and both lower legs. Feet are well perfused, pulses are difficult to palpate. Neurologic: Patient is alert and oriented to person and place. Speech is fluent. Face is symmetric. Moves all extremities equally. Affect: Normal. Skin: Warm and dry. Well perfused. Const: Vital Signs, click to edit/add: Vital Signs - 24 hr 07/05/23 13:43 07/05/23 15:02 07/05/23 15:04 Temperature 97.5 F L Pulse Rate Pulse Rate [Pulse Oximeter] 114 H Respiratory Rate 18 Blood Pressure 108/80 Blood Pressure [Ri ght Upper Arm] 93/55 L Pulse Oximetry 98 96 Oxygen Delivery Me thod Room Air 07/05/23 15:05 07/05/23 15:15 07/05/23 15:17 Temperature Pulse Rate 121 H 120 H Pulse Rate [Pulse Oximeter] Respiratory Rate Blood Pressure 104/66 Blood Pressure [Ri ght Upper Arm] Pulse Oximetry 73 L 95 96 Oxygen Delivery Me thod 07/05/23 15:30 07/05/23 15:32 07/05/23 15:45 Temperature Pulse Rate 122 H 123 H 119 H Pulse Rate [Pulse Oximeter] Respiratory Rate Blood Pressure 117/48 L Blood Pressure [Ri ght Upper Arm] Pulse Oximetry 99 100 98 Oxygen Delivery Me thod Documenting provider has reviewed patient's vital signs: yes Course Course ED Course: An IV had been established by the paramedics but was a 24 gauge and was functioning poorly. We established another IV and will give her a L of normal saline. Labs were ordered including a set of blood cultures. White blood cell count was normal at 9.5, hemoglobin was 8.9, it was 10.9 when checked on June 10. A cath UA showed significant hematuria and cloudy urine. Metabolic panel showed a potassium of 3.2, otherwise fairly unremarkable. Normal gap, CO2 of 26. A venous gas was normal. LFTs showed an AST of 63, alk-phos mildly elevated at 184 but normal bilirubin. CRP elevated at 5. TSH was normal at 1.29. Urinalysis came back showing greater than 100 red cells and greater than 100 white blood cells, many bacteria no squames. Drug screen was positive for barbiturates. Patient's blood pressure was improved after few 100 mL of normal saline, remains mildly tachycardic. Lactate was elevated at 4.8. It is unclear at this time whether these lab findings are markers for sepsis or whether she simply is dry given alcohol use, recent diarrhea and difficulty caring for herself. I did do blood in urine cultures, will give Rocephin 1 g IV for urinary tract infection. Her D-dimer was elevated at 1.24. She has swelling in her legs, she is essentially wheelchair-bound. I have elected to do a CT scan of the chest to look for pulmonary embolism and will do CT scan of the abdomen pelvis to evaluate her kidneys, rule out obstructive uropathy or other complicating factors. Plan at this time will be admission to the hospital for IV antibiotics, management of dehydration versus sepsis, alcohol withdrawal if needed, and social insurance administrator involved to help with disposition. Vital Signs Vital signs: Initial Vital Signs Temperature 97.5 F L 07/05/23 13:43 Temperature Source Temporal Artery Scan 07/05/23 13:43 Pulse Rate 114 H 07/05/23 13:43 Pulse Rhythm Regular 07/05/23 13:43 Respiratory Rate 18 07/05/23 13:43 Blood Pressure 93/55 L 07/05/23 13:43 Blood Pressure Mean 67 L 07/05/23 13:43 Blood Pressure Position Sitting 07/05/23 13:43 Pulse Oximetry 98 07/05/23 13:43 Oxygen Delivery Method Room Air 07/05/23 13:43 Vital Signs Temperature 97.5 F L 07/05/23 13:43 Pulse Rate 114 H 07/05/23 13:43 Respiratory Rate 18 07/05/23 13:43 Blood Pressure 93/55 L 07/05/23 13:43 Pulse Oximetry 98 07/05/23 13:43 Oxygen Delivery Method Room Air 07/05/23 13:43 Temperature 97.5 F L 07/05/23 13:43 Pulse Rate 119 H 07/05/23 15:45 Respiratory Rate 18 07/05/23 13:43 Blood Pressure 117/48 L 07/05/23 15:32 Pulse Oximetry 98 07/05/23 15:45 Oxygen Delivery Method Room Air 07/05/23 13:43 Medications Administered Medications: Generic Name Dose Route Start Last Admin Trade Name Freq PRN Reason Stop Dose Admin Sodium Chloride 1,000 mls @ 1,000 mls/hr 07/05/23 17:12 07/05/23 17:21 0.9 % Sodium Chloride 1000 Ml IV 07/05/23 18:11 1,000 mls/hr .Q1H CORINA Administration Discontinued Medications Generic Name Dose Route Start Last Admin Trade Name Freq PRN Reason Stop Dose Admin Sodium Chloride 1,000 mls @ 1,000 mls/hr 07/05/23 13:45 07/05/23 16:17 0.9 % Sodium Chloride 1000 Ml IV 07/05/23 14:44 Infused .Q1H CORINA Infusion Ceftriaxone Sodium 1 gm/ 100 mls @ 200 mls/hr 07/05/23 15:32 07/05/23 16:17 Sodium Chloride IVPB 07/05/23 15:33 Infused ONCE ONE Infusion Medical Decision Making Lab Data Labs: Lab Results 07/05/23 07/05/23 07/05/23 Range/Units 14:00 14:41 16:04 WBC 9.51 (4.50-11.00) K/uL RBC 3.11 L (4.00-5.20) m/uL Hgb 8.9 L (12.0-16.0) gm/dL Hct 28.6 L (33.0-51.0) % MCV 92 (80-100) fL MCH 29 (26-34) pg MCHC 31 L (32-36) gm/dL RDW Coeff of Lenora 21.0 H (11.5-15.5) % Plt Count 462 H (140-440) K/uL Neut % (Auto) 62.2 (42.0-72.0) % Lymph % (Auto) 24.8 (20-44) % [place] % (Auto) 8.7 (0.0-11.0) % Eos % (Auto) 3.0 (0.0-7.0) % Baso % (Auto) 1.1 (0.0-3.0) % Neut # (Auto) 5.91 (1.7-7.0) K/uL Lymph # (Auto) 2.36 (0.90-2.90) K/uL [place] # (Auto) 0.80 (0.00-0.90) K/UL Eos # (Auto) 0.29 (0.00-0.50) K/uL Baso # (Auto) 0.10 (0.00-0.30) K/uL Abs Immat Gran (auto) 0.02 (0.00-0.30) K/uL Imm/Tot Granulo (auto) 0.2 % Diff Slide Review Acceptable Review (Acceptable) D-Dimer Quant (PE/DVT) 1.24 H (0.00-0.50) ug/ml VBG pH 7.412 (7.32-7.43) VBG pCO2 42 (40-50) mmHG VBG pO2 32.4 (25-47) mmHG VBG HCO3 27 (21-28) mmol/L Sodium 137 (135-149) mmol/L Potassium 3.2 L (3.6-5.1) mmol/L Chloride 103 (96-114) mmol/L Carbon Dioxide 26 (20-32) mmol/L Anion Gap 8 (7-15) mEq/L BUN 11 (7-30) mg/dL Creatinine 0.4 L (0.5-1.5) mg/dL Estimated Creat Clear 45.78 Estimated GFR 109 ml/min Glucose 85 (60-115) mg/dL Lactate 4.8 H* 4.4 H* (0.5-1.9) mmol/L Calcium 7.6 L (8.4-10.6) mg/dL Magnesium 2.0 (1.5-2.6) mg/dL Total Bilirubin 0.8 (0.1-1.5) mg/dL Direct Bilirubin 0.4 (0.0-0.5) mg/dL AST 63 H (12-35) U/L ALT 23 (4-35) U/L Alkaline Phosphatase 184 H (40-150) U/L C-Reactive Protein 5.1 H (0.5-1.0) mg/dL NT-Pro-B Natriuret Pep 77 pg/mL Total Protein 5.7 L (6.0-8.3) g/dL Albumin 2.5 L (3.3-5.0) g/dL TSH 1.290 (0.270-4.200) uIU/mL Urine Color Brown A (Yellow) Urine Appearance Cloudy A (Clear) Urine pH 5.5 (5.0-8.5) Ur Specific [place] 1.020 (1.000-1.030) Urine Protein 3+ A (Negative) Urine Glucose (UA) Negative (Negative) Urine Ketones Trace A (Negative) Urine Blood 3+ A (Negative) Urine Nitrite Positive A (Negative) Urine Bilirubin 1+ A (Negative) Urine Urobilinogen 1.0 (0.2-1.0) Ur Leukocyte Esterase 3+ A (Negative) Urine RBC >100 A (0-2) Urine WBC >100 A (0-5) Ur Squamous Epith Cells None (None-Few) Urine Bacteria Many A (None) Urine Opiates Screen Negative (Negative) Ur Buprenorphine Scrn Negative (Negative) Ur Oxycodone Screen Negative (Negative) Urine Methadone Screen Negative (Negative) Ur Barbiturates Screen POSITIVE A (Negative) U Tricyclic Antidepress Negative (Negative) Ur Phencyclidine Scrn Negative (Negative) Ur Amphetamines Screen Negative (Negative) U Methamphetamines Scrn Negative (Negative) U Benzodiazepines Scrn Negative (Negative) Urine Cocaine Screen Negative (Negative) U Marijuana (THC) Screen Negative (Negative) Ur Drug Screen Comment See Note Ethyl Alcohol 0.08 H (0.01-0.03) % Discharge Plan Discharge Clinical Impression: UTI (urinary tract infection), Alcohol abuse, Anemia Patient Disposition: Admitted As Observation Condition: Improved
[2023-07-05] MEDS: cefTRIAXone 1 GM in 0.9 % SODIUM CHLORIDE Mini-bag 100 ML IVPB (15:40)
--- NOTE | 2023-07-05 16:03 | PM.IMHP1 ---
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 Patient resides in her own apartment in the [facility]. She has a home health nurse that comes twice a month. She has a AGRICULTURAL SERVICES DIRECTOR that comes Tuesday through . Her home health nurse was visiting today, reporting that she did not look well, and recommended she be seen in the emergency department. Patient admits that she has not felt well for some time. Recently, she has noticed blood in her urine. She has complained of her skin being very dry. She tells me she has had sores in the coccyx region for the past several months, none of which have been evaluated by her PCP. In her increasing weakness, she has been unable to care for herself. She used to be able to transfer from her wheelchair to her bed or another chair but has been too weak to do that for the past 3 weeks. She has been sleeping in her wheelchair. She has had several falls with attempts to transfer. She has not taken a shower for weeks. She uses adult diapers but has difficulty changing needs and getting clean. The past 2 nights she has had loose stools. Her urine has smelled strong. She admits to feeling more depressed than usual. She has not been taking her medications, other than her bedtime medications and her Dilantin, as prescribed. She drinks 1 bottle of wine daily. She is a nonsmoker. Denies narcotic or drug use. Recently, admits to daily headaches. Dizziness is no worse than usual. Denies fevers chills or sweats. Denies chest pain or shortness of breath. Denies cough. Denies abdominal pain. Has occasional bouts of nausea without vomiting. Has had loose stools the last 2 nights. Patient is . Has no children. Has a brother that lives in [place]. Believes she has a healthcare directive completed. Review of Systems Narrative: REVIEW OF SYSTEMS: Complete review of systems performed and negative unless otherwise stated in HPI or below. PFSH PFS Medical History Alcohol use disorder ?F10.90 - Alcohol use, unspecified, uncomplicated (ICD-10) Restless leg syndrome ?G25.81 - Restless legs syndrome (ICD-10) Depression ?F32.A - Depression, unspecified (ICD-10) Hepatic steatosis ?K76.0 - Fatty (change of) liver, not elsewhere classified (ICD-10) History of CVA (cerebrovascular accident) ?Z86.73 - Personal history of transient ischemic attack (TIA), and cerebral infarction without residual deficits (ICD-10) Hypertension ?I10 - Essential (primary) hypertension (ICD-10) Dyslipidemia ?E78.5 - Hyperlipidemia, unspecified (ICD-10) Surgical History H/O brain surgery ?Z98.890 - Other specified postprocedural states (ICD-10) Meds Home Medications and Allergies Home Medications Medication Instructions Recorded Confirmed Type aspirin 81 mg chewable tablet 81 mg PO DAILY 07/05/23 07/05/23 History calcium carbonate (Antacid 200 mg PO QID PRN 07/05/23 07/05/23 History (calcium carbonate)) cholecalciferol (vitamin D3) 50 50 mcg PO DAILY 07/05/23 07/05/23 History mcg (2,000 unit) capsule (Vitamin D3) citalopram 40 mg tablet 40 mg PO DAILY 07/05/23 07/05/23 History clopidogrel 75 mg tablet 75 mg PO Q48H 07/05/23 07/05/23 History cyanocobalamin (vitamin B-12) 1,000 mcg PO DAILY 07/05/23 07/05/23 History 1,000 mcg tablet folic acid 1 mg tablet 1 mg PO DAILY 07/05/23 07/05/23 History metoprolol tartrate 50 mg tablet 50 mg PO BID blood pressure 07/05/23 07/05/23 History mirtazapine 45 mg tablet 45 mg PO QPM 07/05/23 07/05/23 History multivitamin 1 tab PO DAILY 07/05/23 07/05/23 History nicotine (polacrilex) 4 mg buccal 4 mg buccal Q1-2H PRN 07/05/23 07/05/23 History lozenge omeprazole 20 mg capsule,delayed 20 mg PO QAM 07/05/23 07/05/23 History release phenytoin sodium extended 100 mg 100 mg PO BID@09,14 07/05/23 07/05/23 History capsule phenytoin sodium extended 100 mg 200 mg PO HS 07/05/23 07/05/23 History capsule (Dilantin Extended) pregabalin 300 mg capsule 300 mg PO BID 07/05/23 07/05/23 History ropinirole 0.5 mg tablet 1.5 mg PO HS 07/05/23 07/05/23 History rotigotine 2 mg/24 hour 1 patch topical DAILY 07/05/23 07/05/23 History transdermal 24 hour patch (Neupro) sumatriptan succinate 100 mg tablet 100 mg PO BID PRN migraine 07/05/23 07/05/23 History suvorexant 20 mg tablet (Belsomra) 20 mg PO HS 07/05/23 07/05/23 History Allergies Allergy/AdvReac Type Severity Reaction Status Date / Time No Known Drug Allergies Allergy Verified 07/05/23 16:28 Exam Narrative: Exam Narrative: PHYSICAL EXAM General: Pleasant, conversant - mildly slurred, NAD HEENT: Normocephalic, atraumatic, sclera white, EOMI, oral mucosa dry Cardiovascular: Tachycardic, +3 pitting edema Pulmonary: CTA bilaterally without rhonchi, rales, expiratory wheezes. No dyspnea on room air Abdominal: Soft, nondistended, NTTP Neurological: Alert, answering questions appropriately, cranial nerves intact, no focal findings Extremities: Left-sided hemiparesis Skin: Bright red intertriginous rash noted of pannus, groin, coccyx. Coccyx with some satellite lesions. Left buttock with deeper red lesion without open ulceration. Bilateral lower extremities with few erythematous lesions, skin intact. Const: Vital Signs, click to edit/add: Vital Signs - 24 hr 07/05/23 13:43 07/05/23 15:02 07/05/23 15:04 Temperature 97.5 F L Pulse Rate Pulse Rate [Pulse Oximeter] 114 H Respiratory Rate 18 Blood Pressure 108/80 Blood Pressure [Ri ght Upper Arm] 93/55 L Pulse Oximetry 98 [facility] 07/05/23 15:05 07/05/23 15:15 07/05/23 15:17 Temperature Pulse Rate 121 H 120 H Pulse Rate [Pulse Oximeter] Respiratory Rate Blood Pressure 104/66 Blood Pressure [Ri ght Upper Arm] Pulse Oximetry 73 L 95 96 Oxygen Delivery Sc thod 07/05/23 15:30 07/05/23 15:32 07/05/23 15:45 Temperature Pulse Rate 122 H 123 H 119 H Pulse Rate [Pulse Oximeter] Respiratory Rate Blood Pressure 117/48 L Blood Pressure [Ri ght Upper Arm] Pulse Oximetry 99 100 98 [facility] - H&P: Result Labs Labs: Short CBC 07/05/23 Range/Units 14:00 WBC 9.51 (4.50-11.00) K/uL Hgb 8.9 L (12.0-16.0) gm/dL Hct 28.6 L (33.0-51.0) % Plt Count 462 H (140-440) K/uL BMP 07/05/23 14:00 Sodium 137 Potassium 3.2 L Chloride 103 Carbon Dioxide 26 BUN 11 Creatinine 0.4 L Glucose 85 Calcium 7.6 L Liver Function 07/05/23 Range/Units 14:00 Total Bilirubin 0.8 (0.1-1.5) mg/dL Direct Bilirubin 0.4 (0.0-0.5) mg/dL AST 63 H (12-35) U/L ALT 23 (4-35) U/L Alkaline Phosphatase 184 H (40-150) U/L Albumin 2.5 L (3.3-5.0) g/dL Urine 07/05/23 Range/Units 14:41 Urine Color Brown A (Yellow) Urine Appearance Cloudy A (Clear) Urine pH 5.5 (5.0-8.5) Ur Specific Castine 1.020 (1.000-1.030) Urine Protein 3+ A (Negative) Urine Glucose (UA) Negative (Negative) ECG Attestation: I personally reviewed and interpreted this ECG as follows: Interpretation: Sinus tachycardia, ventricular rate 116, QTC [address] Chest/Ab/Pelvis: Attestation: I have reviewed the pertinent imaging results. Radiologist's impression: CT abdomen and pelvis acquired with 95 cc Isovue 370 IV contrast. COMPARISON: None. FINDINGS: Lower chest: Unremarkable. Liver: Severe diffuse hypodensity throughout the liver likely related to severe hepatic steatosis. Gallbladder and bile ducts: Unremarkable. No stones or inflammation. No biliary dilatation. Pancreas: Unremarkable. No mass or inflammation. Spleen: Unremarkable. Normal in size. No masses. Adrenal glands: Unremarkable. No nodules. Kidneys: Unremarkable. No suspicious masses, stones, or hydronephrosis. GI tract: Unremarkable. Normal in caliber. No sign of mass or inflammation. Normal appendix. Vasculature: Abdominal aorta is normal in caliber. Mesenteric arteries are patent. Lymph nodes: No lymphadenopathy. Peritoneum/Abdominal Wall: Unremarkable. No sign of mass or infiltration. No free air or significant free fluid. Pelvis: Circumferential bladder wall thickening with mild mucosal enhancement is noted. Fibroid within the uterus is noted, otherwise unremarkable. Bones: Unremarkable for age. IMPRESSION: 1. circumferential bladder wall thickening likely related to urinary infection. Correlate with UA. 2. No renal or ureteral stones or other lesions identified on this single phase CT. 3. Severe hepatic steatosis. CT chest PE was acquired with 95 cc Isovue 370 IV contrast. COMPARISON: None. FINDINGS: Heart and vasculature: Contrast opacification of the pulmonary arterial tree is adequate. No sign of pulmonary embolism. Heart size is normal. Thoracic aorta and pulmonary artery are normal in caliber. Lungs and pleura: Linear opacities in the left lower lobe and lingula likely atelectasis. Mild bibasilar dependent ground-glass opacities likely atelectasis. Otherwise, no suspicious parenchymal opacities or nodules. No pleural effusions, pleural thickening, or pneumothorax. Lymph nodes/mediastinum: No mediastinal, hilar, or axillary adenopathy. Chest wall: No masses. Upper abdomen: Please see separately dictated CT of the abdomen and pelvis for further details. Bones: Multiple old left-sided rib fractures. Mild multilevel degenerative changes. IMPRESSION: No pulmonary embolism identified. No acute cardiopulmonary process identified. Assessment and Plan Assessment and plan (1) UTI (urinary tract infection): Problem comment: Symptomatic, UA positive, UC pending. CT shows bladder wall thickening consistent with UTI. No leukocytosis. Afebrile. Elevated lactate - will follow. BC x2 pending Pressures soft, elevated heart rate - has been noted in outside records as well. Does not currently meet sepsis criteria Ceftriaxone Q 24 hours Continue IV fluids, second bolus. Monitor for further fluid overload, peripheral edema present Status: Acute (2) Weakness: Problem comment: Worsening, unable to care for self or independently complete ADLs. Sleeping in wheelchair Failure to thrive. Noncompliant with medications PT/OT consult automotive services manager for discharge planning/placement needs Status: Acute (3) Anemia: Problem comment: Acute on chronic, hemoglobin 8.9 on admission Hematuria. No report of hematemesis or hematochezia Workup in February 2023 Ferritin, TIBC, B12 ordered Recheck in am Status: Chronic (4) Alcohol use disorder: Problem comment: Drinks 1 bottle of wine daily. History of DTs and seizures ETOH 0.08 on admission CIWA, lorazepam p.r.n. Thiamine, MVI, folic daily Continue IV hydration Status: Chronic (5) Hepatic steatosis: Problem comment: With history of elevated LFTs. CT notes severe diffuse hypodensity throughout the liver likely related to severe hepatic steatosis AST 63, alk-phos 184 Status: Chronic (6) Decubitus ulcer of coccyx: Problem comment: Patient reports present 2-3 months Wound cares, nystatin cream, monitoring Consider wound care consult Status: Acute (7) Wound of lower extremity: Problem comment: Wound cares, monitor Single dose of Lasix for peripheral edema - hold until pressures improve Status: Acute (8) Intertriginous dermatitis associated with moisture: Problem comment: Keep area clean and dry Nystatin cream Status: Acute (9) History of CVA (cerebrovascular accident): Problem comment: Following AVM repair in 2000. Left-sided hemiparesis. Wheelchair dependent Continue Plavix, aspirin Status: Chronic (10) Hypertension: Problem comment: Continue metoprolol Status: Chronic (11) Dyslipidemia: Problem comment: Continue statin Status: Chronic (12) Restless leg syndrome: Problem comment: Continue Requip Status: Chronic (13) Depression: Problem comment: With history of anxiety, insomnia. Has not been compliant with medications lately Continue Celexa, Remeron, Belsomra Status: Chronic (14) Hypokalemia: Problem comment: Potassium 3.2. Oral supplement ordered. Recheck in a.m. Status: Acute Total Time Spent Total Time Spent: Total time spent caring for the patient today was 60 minutes. This includes time spent for the visit reviewing the chart, time spent during the visit, time spent after the visit and documentation and planning in coordination of care.
[2023-07-05 16:16] LABS: Lactate Sepsis 2 Hour 4.4 mmol/L (0.5-1.9)
[2023-07-05] MEDS: POTASSIUM CHLORIDE 10 MEQ CAPSULE ER 20 MEQ PO (18:16)
[2023-07-05] MEDS: THIAMINE 100 MG TABLET PO (18:16)
[2023-07-05] MEDS: 0.9 % SODIUM CHLORIDE 1000 ml 1,000 ML 100 ML IV (18:16)
[2023-07-05] MEDS: MIRTAZAPINE 15 MG TABLET 45 MG PO (20:46)
[2023-07-05] MEDS: ROPINIROLE HCL 1 MG TABLET 1.5 MG PO (20:47)
[2023-07-05] MEDS: PREGABALIN 100 MG CAPSULE 300 MG PO (20:47)
[2023-07-05] MEDS: PHENYTOIN EXTENDED RELEASE 100 MG CAPSULE 200 MG PO (20:47)
[2023-07-05] MEDS: NYSTATIN CREAM 30 GM 1 APPLIC TOPICAL (20:47)
[2023-07-05] MEDS: ENOXAPARIN 30 MG/0.3ML INJ SUBCUT (20:48)
[2023-07-05 21:52] LABS: Lactate Sepsis w/Reflex* 3.9 mmol/L (0.5-1.9)
[2023-07-05] MEDS: LORazepam 1 MG TABLET PO (22:45)
[2023-07-05] MEDS: IBUPROFEN 400 MG TABLET PO (22:46)
--- NOTE | 2023-07-05 23:18 | PC.NURSE ---
End of Shift: Patient admitted to CCU2. Pleasant and cooperative. Afebrile. BP 80s-100s/40-50s and heart rate 115-130, updated MD. Tele showing sinus tach. Normal saline bolus given x2. PRN Ibuprofen given x1 for headache. CIWA scores 3-8, 0.5mg Ativan given x1 per MD. Dressings to bilateral lower extremities changed. Elvira area, groin, coccyx and buttocks reddened/excoriated, cleansed and Nystatin cream applied. Frequent turn and reposition. Incontinent of urine x2. No BM this shift.
[2023-07-06] VITALS (23 sets, daily range): BP systolic 71–98; BP diastolic 36–59; PULSE 79–128; RESP 16–20; TEMP 36.2–37.1; O2SAT 90–100
[2023-07-06 00:34] LABS: Lactate Sepsis 2 Hour 2.6 mmol/L (0.5-1.9)
[2023-07-06] MEDS: 0.9 % SODIUM CHLORIDE 500 ML 500 ML 250 ML IV (03:43)
[2023-07-06] MEDS: OMEPRAZOLE 20 MG CAPSULE DR PO (06:22)
[2023-07-06] MEDS: 0.9 % SODIUM CHLORIDE 1000 ml 1,000 ML 100 ML IV ×2 (06:28→19:31)
[2023-07-06 06:50] LABS: Hematocrit 26.8 % (33.0-51.0); Hemoglobin* 8.2 gm/dL (12.0-16.0); Lactate* 2.5 mmol/L (0.5-1.9); Mean Corpuscular HGB Conc 31 gm/dL (32-36); Mean Corpuscular Hemoglobin 29 pg (26-34); Mean Corpuscular Volume 94 fL (80-100); Platelet Count* 422 K/uL (140-440); Red Blood Count 2.85 m/uL (4.00-5.20); White Blood Count* 7.91 K/uL (4.50-11.00)
[2023-07-06 07:00] LABS: Ionized Calcium* 1.01 mmol/L (1.11-1.30)
[2023-07-06 07:16] LABS: Slide Review Reflex No
[2023-07-06 07:21] LABS: Chloride* 109 mmol/L (96-114); Potassium* 3.2 mmol/L (3.6-5.1); Sodium* 138 mmol/L (135-149)
[2023-07-06 07:24] LABS: Anion Gap 4 mEq/L (7-15); Blood Urea Nitrogen* 9 mg/dL (7-30); Carbon Dioxide* 25 mmol/L (20-32); Creatinine* 0.4 mg/dL (0.5-1.5); Est. Creatinine Clearance* 45.78; Estimated Glomerular Filt Rate 109 ml/min
[2023-07-06 07:25] LABS: Calcium* 6.9 mg/dL (8.4-10.6); Glucose* 86 mg/dL (60-115)
[2023-07-06 07:27] LABS: C Reactive Protein* 4.4 mg/dL (0.5-1.0)
[2023-07-06 07:37] LABS: Iron* 99 ug/dL (37-170)
[2023-07-06] MEDS: IBUPROFEN 400 MG TABLET PO (07:42)
[2023-07-06 07:46] LABS: Percent Iron Saturation 66 % (20-50); Total Iron Binding Capacity 149 ug/dL (265-497)
[2023-07-06 08:13] LABS: Ferritin* 24.2 ng/mL (11.1-264.0)
--- NOTE | 2023-07-06 08:15 | PC.NURSE ---
Pt alert and oriented x3. Afebrile. Pt denies chest pain, SOB, N/V. Pt reported having minor headache at beginning of shift 2300 but reported it had gone away, pain medications offer pt refused stating its not that bad. Pt was turned and repositioned throughout night. Pt high heart rate and low blood pressures, pt denied SOB and dizziness but reports a light lightheadedness, Dr. Qureshi updated, orders given to get 500cc bolus of normal saline over 2hours. Pt had no urine output from [id number], RN performed bladder scan on pt with 273 ml retained, updated DR. Chen, orders given to place Chisholm catheter, updated on coming RN. Pt's leg and coccyx dressing are CDI. Pt was able to get up A2 to the scale this morning. Pt was turned and repositioned throughout night. Pt slept intermittently throughout night.
[2023-07-06 08:19] LABS: Albumin* 1.9 g/dL (3.3-5.0)
[2023-07-06 08:22] LABS: Alkaline Phosphatase* 164 U/L (40-150); Aspartate Amino Transferase* 54 U/L (12-35); Bilirubin Direct* 0.4 mg/dL (0.0-0.5); Bilirubin Total* 0.7 mg/dL (0.1-1.5); Magnesium* 1.8 mg/dL (1.5-2.6); Total Protein* 4.7 g/dL (6.0-8.3)
[2023-07-06 08:23] LABS: Alanine Aminotransferase* 20 U/L (4-35)
[2023-07-06 08:28] LABS: HCO3 VBG 26 mmol/L (21-28); PCO2 VBG 48 mmHG (40-50); PO2 VBG 39.5 mmHG (25-47); pH VBG 7.345 (7.32-7.43)
[2023-07-06 08:38] LABS: Gamma Glutamyl Transpeptidase* 472 U/L (8-55)
[2023-07-06 08:39] LABS: Procalcitonin* 0.42 ng/mL (<0.50)
[2023-07-06 08:40] LABS: Vitamin B12* > 1000 pg/mL (243-894)
[2023-07-06] MEDS: cefTRIAXone 1 GM in 0.9 % SODIUM CHLORIDE Mini-bag 100 ML IVPB (08:47)
[2023-07-06] MEDS: PANTOPRAZOLE SODIUM 40 MG INJ 80 MG IVP (08:49)
[2023-07-06] MEDS: FUROSEMIDE 10 MG/ML inj 40 MG IVP (08:49)
[2023-07-06] MEDS: POTASSIUM CHLORIDE 10 MEQ CAPSULE ER 20 MEQ PO ×3 (08:50→21:55)
[2023-07-06] MEDS: ALBUMIN HUMAN 25% 25 GM/100 ML VIAL IVPB (09:10)
[2023-07-06] MEDS: NICOTINE POLACRILEX 4 MG LOZENGE BUCCAL ×2 (10:02→15:38)
[2023-07-06] MEDS: PHENYTOIN EXTENDED RELEASE 100 MG CAPSULE PO ×3 (10:02→21:58)
[2023-07-06] MEDS: THIAMINE 250 MG in 0.9 % SODIUM CHLORIDE 100 ml 100 ML 102.5 MG IVPB (10:03)
[2023-07-06] MEDS: CLOPIDOGREL 75 MG TABLET PO (10:03)
[2023-07-06] MEDS: CYANOCOBALAMIN (VITAMIN B-12) 500 MCG TABLET 1000 MCG PO (10:04)
[2023-07-06] MEDS: FOLIC ACID 1 MG TABLET PO (10:04)
[2023-07-06] MEDS: CITALOPRAM HYDROBROMIDE 20 MG TABLET 40 MG PO (10:05)
[2023-07-06] MEDS: METOPROLOL TARTRATE 50 MG TABLET PO (10:06)
[2023-07-06] MEDS: MULTIVITAMIN/MINERALS 1 TABLET 1 TAB PO (10:06)
[2023-07-06] MEDS: NYSTATIN CREAM 30 GM 1 APPLIC TOPICAL ×3 (10:07→21:57)
[2023-07-06] MEDS: ASPIRIN 81 MG TAB.CHEW PO (10:07)
[2023-07-06] MEDS: PREGABALIN 100 MG CAPSULE 300 MG PO ×2 (10:17→21:57)
--- NOTE | 2023-07-06 13:20 | PM.IMPN1 ---
Progress Note: A&P Assessment and plan (1) Hypotension: Problem details: relative, need MAP greater than 65. albumin, fluids, blood - will consider pressor if needed Status: Acute (2) Sinus tachycardia: Problem details: given metoprolol inadvertently this a.m. likely related to prerenal dehydration and sympathetic drive related to alcohol withdrawal and current infection Status: Acute (3) UTI (urinary tract infection): Problem details: complicated; getting IV rocephin. UC pending. 3rd spacing fluids, pulse remains elevated (sinus); hypotensive. placed catheter and monitoring uop --> low, gave lasix am of 07/05 lactate still elevated. no fever. Room air sats are normal. Status: Acute (4) Weakness: Problem details: Worsening, unable to care for self or independently complete ADLs. Sleeping in wheelchair Failure to thrive. Noncompliant with medications PT/OT consult developmental services worker for discharge planning/placement needs Status: Acute (5) Anemia: Problem details: Acute on chronic - down to 8.2 this am, transfusing 1 unit PRBCs low albumin, given albumin infusion Status: Chronic (6) Hypokalemia: Problem details: Potassium 3.2. Oral supplement ordered. Recheck in a.m. Status: Acute (7) Intertriginous dermatitis associated with moisture: Problem details: Keep area clean and dry Nystatin cream Chisholm placed am of 07/05 Status: Acute (8) Wound of lower extremity: Problem details: Wound cares, monitor Single dose of Lasix for peripheral edema - hold until pressures improve Status: Acute (9) Alcohol use disorder: Problem details: Drinks 1 bottle of wine daily. History of DTs and seizures ETOH 0.08 on admission CIWA, lorazepam p.r.n. Thiamine, MVI, folic daily Continue IV hydration Status: Chronic (10) Restless leg syndrome: Problem details: Continue Requip Status: Chronic (11) Depression: Problem details: With history of anxiety, insomnia. Has not been compliant with medications lately Continue Celexa, Remeron, Belsomra Status: Chronic (12) Hepatic steatosis: Problem details: With history of elevated LFTs. CT notes severe diffuse hypodensity throughout the liver likely related to severe hepatic steatosis elevated alk phos, AST, intoxicated upon arrival. elevated GGT monitor Status: Chronic (13) History of CVA (cerebrovascular accident): Problem details: Following AVM repair in 2000. Left-sided hemiparesis. Wheelchair dependent Continue Plavix, aspirin Status: Chronic (14) Dyslipidemia: Problem details: Continue statin Status: Chronic Subjective Date Seen: 07/06/23 Interval history: Daily Progress Note - Hospital Medicine Day #: 2 CC: Weakness, complicated UTI, hypotension, tachycardia, anemia OVERNIGHT UPDATES FROM STAFF & MED, LAB, IMAGING UPDATES Charito had a restful night, she was not making much urine despite over 3 L infused. She was showing signs of clinical 3rd spacing. She is awake and alert this morning. No evidence of withdrawals. Afebrile Blood pressures have been soft all day 77/45, 86/57, 95/52 (HOWEVER, PT GOT SCHEDULED HOME METOPROLOL AND I ORDERED IV LASIX FOR POOR UOP) Home pulses come down nicely was sinus tach at 120s and is down to 92 Respiratory rate is 18 to 20, unlabored Pulse ox is 100% on room air Weight is 88.7 kid CBC: No leukocytosis, hemoglobin 8.2, platelets 422 MCV 94 PH 7.34 Mild hypokalemia 3.2 Creatinine is 0.4 with a GFR 109 Glucose 86 Lactate is slowly down trending down to 2.5 Ionized calcium 1.01 Bilirubin is normal LFTs are mildly elevated GGT 472 C reactive protein is down trending 5.1 down to 4.4 Albumin is significantly depressed at 1.9 Procalcitonin normal B12 greater than 1000 TSH normal Urine culture pending 2 blood cultures pending, negative today Objective: Disheveled. Vitals: see above Lungs: Clear. Cardiac: S1S2. Skin: Large areas of excoriation and erythema noted in her perineum and groin. Pressure wounds on bilateral calves. Disposition/Potential discharge - Likely would need some rehab then transitioning to either assisted care or long-term care Today I spent 50minutes seeing the patient, reviewing Expanse and EPIC notes/diagnostics, discussing the care plan with our care time that includes social work, PT/OT, pharmacy, RT, mcc and documenting my impressions and plan in the medical record. Exam Const: Vital Signs, click to edit/add: Vital Signs - 24 hr 07/05/23 13:43 07/05/23 15:02 07/05/23 15:04 Temperature 97.5 F L Pulse Rate Pulse Rate [Apical ] Pulse Rate [Pulse Oximeter] 114 H Respiratory Rate 18 Blood Pressure 108/80 Blood Pressure [Ri ght Arm] Blood Pressure [Ri ght Upper Arm] 93/55 L Pulse Oximetry 98 96 [facility] 07/05/23 15:05 07/05/23 15:15 07/05/23 15:17 Temperature Pulse Rate 121 H 120 H Pulse Rate [Apical ] Pulse Rate [Pulse Oximeter] Respiratory Rate Blood Pressure 104/66 Blood Pressure [Ri ght Arm] Blood Pressure [Ri ght Upper Arm] Pulse Oximetry 73 L 95 96 [facility] 07/05/23 15:30 07/05/23 15:32 07/05/23 15:45 Temperature Pulse Rate 122 H 123 H 119 H Pulse Rate [Apical ] Pulse Rate [Pulse Oximeter] Respiratory Rate Blood Pressure 117/48 L Blood Pressure [Ri ght Arm] Blood Pressure [Ri ght Upper Arm] Pulse Oximetry 99 100 98 [facility] 07/05/23 16:45 07/05/23 17:00 07/05/23 17:30 Temperature 98.8 F 98.8 F Pulse Rate 120 H Pulse Rate [Apical ] 122 H 122 H Pulse Rate [Pulse Oximeter] Respiratory Rate 18 18 Blood Pressure Blood Pressure [Ri ght Arm] 87/50 L 87/50 L Blood Pressure [Ri ght Upper Arm] Pulse Oximetry 96 96 Oxygen Delivery [facility] Room Air Room Air 07/05/23 18:00 07/05/23 18:33 07/05/23 19:00 Temperature 97.1 F L 98.7 F Pulse Rate Pulse Rate [Apical ] 124 H 122 H Pulse Rate [Pulse Oximeter] Respiratory Rate 18 16 16 Blood Pressure Blood Pressure [Ri ght Arm] 96/66 91/51 L Blood Pressure [Ri ght Upper Arm] Pulse Oximetry 96 94 Oxygen Delivery [facility] Room Air Room Air 07/05/23 20:00 07/05/23 22:40 07/05/23 23:00 Temperature 98.4 F Pulse Rate Pulse Rate [Apical ] 128 H 130 H 115 H Pulse Rate [Pulse Oximeter] Respiratory Rate 16 16 Blood Pressure Blood Pressure [Ri ght Arm] 105/40 L 86/52 L Blood Pressure [Ri ght Upper Arm] Pulse Oximetry 95 97 [facility] Room Air 07/06/23 00:22 07/06/23 02:46 07/06/23 04:30 Temperature 98.4 F 98.4 F 98.4 F Pulse Rate Pulse Rate [Apical ] 122 H 124 H 119 H Pulse Rate [Pulse Oximeter] Respiratory Rate 18 16 16 Blood Pressure Blood Pressure [Ri ght Arm] 88/55 L 89/51 L 95/59 L Blood Pressure [Ri ght Upper Arm] Pulse Oximetry 90 90 97 Oxygen Delivery Me thod Room Air Room Air Room Air 07/06/23 07:00 07/06/23 07:30 07/06/23 08:00 Temperature 98.7 F 98.4 F Pulse Rate Pulse Rate [Apical ] 128 H 128 H 128 H Pulse Rate [Pulse Oximeter] Respiratory Rate 18 18 Blood Pressure Blood Pressure [Ri ght Arm] 95/52 L 95/59 L Blood Pressure [Ri ght Upper Arm] Pulse Oximetry 99 99 Oxygen Delivery Me thod Room Air Room Air 07/06/23 11:39 07/06/23 13:00 07/06/23 13:13 Temperature 98.4 F 97.8 F 97.7 F Pulse Rate 100 98 Pulse Rate [Apical ] 100 Pulse Rate [Pulse Oximeter] Respiratory Rate 18 20 18 Blood Pressure 79/36 L 71/46 L Blood Pressure [Ri ght Arm] 86/57 L Blood Pressure [Ri ght Upper Arm] Pulse Oximetry 96 100 Oxygen Delivery Me thod Room Air 07/06/23 13:19 Temperature Pulse Rate Pulse Rate [Apical ] 94 Pulse Rate [Pulse Oximeter] Respiratory Rate Blood Pressure Blood Pressure [Ri ght Arm] 79/52 L Blood Pressure [Ri ght Upper Arm] Pulse Oximetry Oxygen Delivery Me thod Labs Labs: Laboratory Results - last 24 hr 07/05/23 07/05/23 07/05/23 14:00 14:41 16:04 WBC 9.51 RBC 3.11 L Hgb 8.9 L Hct 28.6 L MCV 92 MCH 29 MCHC 31 L RDW Coeff of Lenora 21.0 H Plt Count 462 H Neut % (Auto) 62.2 Lymph % (Auto) 24.8 [place] % (Auto) 8.7 Eos % (Auto) 3.0 Baso % (Auto) 1.1 Neut # (Auto) 5.91 Lymph # (Auto) 2.36 [place] # (Auto) 0.80 Eos # (Auto) 0.29 Baso # (Auto) 0.10 Abs Immat Gran (auto) 0.02 Imm/Tot Granulo (auto) 0.2 Diff Slide Review Acceptable Review D-Dimer Quant (PE/DVT) 1.24 H VBG pH 7.412 VBG pCO2 42 VBG pO2 32.4 VBG HCO3 27 Sodium 137 Potassium 3.2 L Chloride 103 Carbon Dioxide 26 Anion Gap 8 BUN 11 Creatinine 0.4 L Estimated Creat Clear 45.78 Estimated GFR 109 Glucose 85 Lactate 4.8 H* 4.4 H* Calcium 7.6 L Ionized Calcium [place] Magnesium 2.0 Iron TIBC % Saturation Ferritin Total Bilirubin 0.8 Direct Bilirubin 0.4 GGT AST 63 H ALT 23 Alkaline Phosphatase 184 H C-Reactive Protein 5.1 H NT-Pro-B Natriuret Pep 77 Total Protein 5.7 L Albumin 2.5 L Vitamin B12 Procalcitonin TSH 1.290 Urine Color Brown A Urine Appearance Cloudy A Urine pH 5.5 Ur Specific [place] 1.020 Urine Protein 3+ A Urine Glucose (UA) Negative Urine Ketones Trace A Urine Blood 3+ A Urine Nitrite Positive A Urine Bilirubin 1+ A Urine Urobilinogen 1.0 Ur Leukocyte Esterase 3+ A Urine RBC >100 A Urine WBC >100 A Ur Squamous Epith Cells None Urine Bacteria Many A Urine Opiates Screen Negative Ur Buprenorphine Scrn Negative Ur Oxycodone Screen Negative Urine Methadone Screen Negative Ur Barbiturates Screen POSITIVE A U Tricyclic Antidepress Negative Ur Phencyclidine Scrn Negative Ur Amphetamines Screen Negative U Methamphetamines Scrn Negative U Benzodiazepines Scrn Negative Urine Cocaine Screen Negative U Marijuana (THC) Screen Negative Ur Drug Screen Comment See Note Ethyl Alcohol 0.08 H Lab Acknowledgement Blood Type Antibody Screen Crossmatch (AHG) 07/05/23 07/06/23 07/06/23 20:58 00:27 06:03 WBC 7.91 RBC 2.85 L Hgb 8.2 L Hct 26.8 L MCV 94 MCH 29 MCHC 31 L RDW Coeff of Lenora Plt Count 422 Neut % (Auto) Lymph % (Auto) [place] % (Auto) Eos % (Auto) Baso % (Auto) Neut # (Auto) Lymph # (Auto) [place] # (Auto) Eos # (Auto) Baso # (Auto) Abs Immat Gran (auto) Imm/Tot Granulo (auto) Diff Slide Review D-Dimer Quant (PE/DVT) VBG pH 7.345 VBG pCO2 48 VBG pO2 39.5 VBG HCO3 26 Sodium 138 Potassium 3.2 L Chloride 109 Carbon Dioxide 25 Anion Gap 4 L BUN 9 Creatinine 0.4 L Estimated Creat Clear 45.78 Estimated GFR 109 Glucose 86 Lactate 3.9 H 2.6 H 2.5 H Calcium 6.9 L Ionized Calcium [place] 1.01 L Magnesium 1.8 Iron 99 TIBC 149 L % Saturation 66 H Ferritin 24.2 Total Bilirubin 0.7 Direct Bilirubin 0.4 GGT 472 H AST 54 H ALT 20 Alkaline Phosphatase 164 H C-Reactive Protein 4.4 H NT-Pro-B Natriuret Pep Total Protein 4.7 L Albumin 1.9 L Vitamin B12 > 1000 H Procalcitonin 0.42 TSH Urine Color Urine Appearance Urine pH Ur Specific [place] Urine Protein Urine Glucose (UA) Urine Ketones Urine Blood Urine Nitrite Urine Bilirubin Urine Urobilinogen Ur Leukocyte Esterase Urine RBC Urine WBC Ur Squamous Epith Cells Urine Bacteria Urine Opiates Screen Ur Buprenorphine Scrn Ur Oxycodone Screen Urine Methadone Screen Ur Barbiturates Screen U Tricyclic Antidepress Ur Phencyclidine Scrn Ur Amphetamines Screen U Methamphetamines Scrn U Benzodiazepines Scrn Urine Cocaine Screen U Marijuana (THC) Screen Ur Drug Screen Comment Ethyl Alcohol Lab Acknowledgement Blood Type O Negative Antibody Screen NEGATIVE Crossmatch (AHG) See Detail 07/06/23 08:07 WBC RBC Hgb Hct MCV MCH MCHC RDW Coeff of Lenora Plt Count Neut % (Auto) Lymph % (Auto) [place] % (Auto) Eos % (Auto) Baso % (Auto) Neut # (Auto) Lymph # (Auto) [place] # (Auto) Eos # (Auto) Baso # (Auto) Abs Immat Gran (auto) Imm/Tot Granulo (auto) Diff Slide Review D-Dimer Quant (PE/DVT) VBG pH VBG pCO2 VBG pO2 VBG HCO3 Sodium Potassium Chloride Carbon Dioxide Anion Gap BUN Creatinine Estimated Creat Clear Estimated GFR Glucose Lactate Calcium Ionized Calcium [place] Magnesium Iron TIBC % Saturation Ferritin Total Bilirubin Direct Bilirubin GGT AST ALT Alkaline Phosphatase C-Reactive Protein NT-Pro-B Natriuret Pep Total Protein Albumin Vitamin B12 Procalcitonin TSH Urine Color Urine Appearance Urine pH Ur Specific [place] Urine Protein Urine Glucose (UA) Urine Ketones Urine Blood Urine Nitrite Urine Bilirubin Urine Urobilinogen Ur Leukocyte Esterase Urine RBC Urine WBC Ur Squamous Epith Cells Urine Bacteria Urine Opiates Screen Ur Buprenorphine Scrn Ur Oxycodone Screen Urine Methadone Screen Ur Barbiturates Screen U Tricyclic Antidepress Ur Phencyclidine Scrn Ur Amphetamines Screen U Methamphetamines Scrn U Benzodiazepines Scrn Urine Cocaine Screen U Marijuana (THC) Screen Ur Drug Screen Comment Ethyl Alcohol Lab Acknowledgement Test Added Blood Type Antibody Screen Crossmatch (AHG)
--- NOTE | 2023-07-06 14:39 | PC.NURSE ---
shift note: HR >120/min this a.m. pt asymptomatic. morning meds given. Dr. Chen aware of vss. 1 unit of PRB's given. Bp's 70-80's systolic with HR 90's. Pt denies TATUM, nausea,irreg HR or tachycardia, or sob. IV patent x2. LS clr. Pt denies pain at this time. berg placed this a.m with difficulty. pt tolerated berg placement w/o pain. urine initially dk tea color and thick. UO @ [id number]. all over body edema with sob this a.m. pt received lasix IV with decrease in u/e edema and pt states sob gone. groin and rectum red/excoriated. areas cleaned with warm water then nystantin & barrier cream applied.
[2023-07-06] MEDS: THIAMINE 250 MG in 0.9 % SODIUM CHLORIDE 100 ml 100 ML 100 MG IVPB ×2 (15:26→21:56)
--- NOTE | 2023-07-06 16:12 | REH.OT ---
OT eval on hold d/t hypotension per nsg.
--- NOTE | 2023-07-06 16:45 | PC.SOCIAL ---
Discharge planning- Received a phone call from Brenna ([employer] [employer]). Brenna informs that pt is part of the [facility] and receives visits to her home from a nurse business planning manager and nurse practitioner. Brenna provides information that the GRIP BOSS is not through [employer] ([employer]OSS [employer]- [phone]) but provides contact information. Brenna informs that [employer] has completed two Vulnerable Adult reports on pt, the latest was filed yesterday to [facility]. Pt has a [facility] case management social worker Promise ([email or web address] or [phone]). Brenna informs that the [facility] case management social worker was actively working on locating assisted living options for pt. Pt will need an elderly waiver bed. Brenna informs that she will place an e-mail out today to see if there are any immediate EW openings within [employer] at any assisted living facilities in the area and will provide social professionals an update. Received a confirmation voicemail from Brenna informing that she did send out an e-mail to locate openings for assisted living. Phone call to pt's [facility] home health care case manager, Promise, at [phone]. Left a voicemail requesting a phone call back to discuss assisted living options and discharge plans. Met with pt in room to discuss discharge plans. Pt was very tired during conversation. Pt informs that her case management social worker was working on assisted living placement. Pt hopes to locate assisted living as a group home placement. Pt would like to stay in the [facility]. Social work will continue to follow up as needed.
[2023-07-06 17:24] LABS: HCO3 VBG 24 mmol/L (21-28); Lactate* 3.6 mmol/L (0.5-1.9); PCO2 VBG 37 mmHG (40-50); PO2 VBG 59.4 mmHG (25-47); pH VBG 7.413 (7.32-7.43)
[2023-07-06 17:25] LABS: Hemoglobin* 8.9 gm/dL (12.0-16.0)
[2023-07-06 17:39] LABS: Chloride* 109 mmol/L (96-114)
[2023-07-06 17:40] LABS: Potassium* 3.3 mmol/L (3.6-5.1); Sodium* 137 mmol/L (135-149)
[2023-07-06 17:41] LABS: INR 1.16 (0.91-1.10); Prothrombin Time 15.5 Seconds
[2023-07-06 17:42] LABS: Creatinine* 0.5 mg/dL (0.5-1.5); Est. Creatinine Clearance* 45.78; Estimated Glomerular Filt Rate 103 ml/min
[2023-07-06 17:43] LABS: Anion Gap 5 mEq/L (7-15); Blood Urea Nitrogen* 7 mg/dL (7-30); Calcium* 7.2 mg/dL (8.4-10.6); Carbon Dioxide* 23 mmol/L (20-32); Glucose* 89 mg/dL (60-115)
[2023-07-06] MEDS: THIAMINE 100 MG TABLET PO (18:04)
--- NOTE | 2023-07-06 18:06 | PC.NURSE ---
shift note: drsgs to bilat lower calves done per d.o. Lt lateral mid calf with nickel sized ulcer. wound bed with yellowish center. red raised area size of dime at foot and ankle crease intact not open. Rt mid calf with 2 small wounds. Ls remain clr. Pt BP 86/50 lt arm @ 1600 with HR 95. Pt denies sob, dizziness,TATUM or chest pressure. Dr. Dow aware of hypotension. No further orders. IV x2 patent. berg intact. UO for 12hr shift 1900cc light amari urine.
[2023-07-06] MEDS: SODIUM CHLORIDE 0.9 % (FLUSH) 10 ML SYRINGE 5 ML IVF (21:57)
[2023-07-06] MEDS: ROPINIROLE HCL 1 MG TABLET 1.5 MG PO (21:59)
[2023-07-06] MEDS: PHENYTOIN EXTENDED RELEASE 100 MG CAPSULE 200 MG PO (21:59)
[2023-07-06] MEDS: ENOXAPARIN 30 MG/0.3ML INJ SUBCUT (22:00)
[2023-07-06] MEDS: MIRTAZAPINE 15 MG TABLET 45 MG PO (22:01)
[2023-07-07] VITALS (13 sets, daily range): BP systolic 87–101; BP diastolic 46–63; PULSE 97–111; RESP 16–18; TEMP 35.8–36.8; O2SAT 92–98
--- NOTE | 2023-07-07 05:19 | PC.NURSE ---
Pt sleeping at this time. Had a restless night the first part of the shift. Called 911 earlier. VSS CIWA score minimal.
[2023-07-07 06:44] LABS: HCO3 VBG 26 mmol/L (21-28); PCO2 VBG 43 mmHG (40-50); PO2 VBG 50.2 mmHG (25-47); pH VBG 7.393 (7.32-7.43)
[2023-07-07] MEDS: 0.9 % SODIUM CHLORIDE 1000 ml 1,000 ML 100 ML IV (06:44)
[2023-07-07 06:54] LABS: Basophils Absolute Auto 0.07 K/uL (0.00-0.30); Basophils Percent Auto 1.1 % (0.0-3.0); Eosinophils Absolute Auto 0.33 K/uL (0.00-0.50); Eosinophils Percent Auto 5.2 % (0.0-7.0); Hematocrit 29.3 % (33.0-51.0); Hemoglobin* 9.2 gm/dL (12.0-16.0); Immature Granulocytes Abs Auto 0.03 K/uL (0.00-0.30); Immature Granulocytes Pct Auto 0.5 %; Lymphocytes Absolute Auto 1.43 K/uL (0.90-2.90); Lymphocytes Percent Auto 22.5 % (20-44); Mean Corpuscular HGB Conc 31 gm/dL (32-36); Mean Corpuscular Hemoglobin 29 pg (26-34); Mean Corpuscular Volume 92 fL (80-100); Monocytes Percent Auto 9.1 % (0.0-11.0); Neutrophils Absolute Auto 3.92 K/uL (1.7-7.0); Neutrophils Percent Auto 61.6 % (42.0-72.0); Platelet Count* 352 K/uL (140-440); RDW Coefficient of Variation % 21.1 % (11.5-15.5); Red Blood Count 3.18 m/uL (4.00-5.20); White Blood Count* 6.36 K/uL (4.50-11.00)
[2023-07-07 07:04] LABS: Slide Review Reflex No
[2023-07-07 07:12] LABS: INR 1.17 (0.91-1.10); Prothrombin Time 15.7 Seconds
[2023-07-07 07:19] LABS: Albumin* 2.1 g/dL (3.3-5.0); Chloride* 111 mmol/L (96-114)
[2023-07-07 07:20] LABS: Potassium* 3.5 mmol/L (3.6-5.1); Sodium* 138 mmol/L (135-149)
[2023-07-07 07:22] LABS: Anion Gap 2 mEq/L (7-15); Bilirubin Total* 0.7 mg/dL (0.1-1.5); Carbon Dioxide* 25 mmol/L (20-32); Creatinine* 0.4 mg/dL (0.5-1.5); Est. Creatinine Clearance* 45.78; Estimated Glomerular Filt Rate 109 ml/min
[2023-07-07 07:23] LABS: Alanine Aminotransferase* 16 U/L (4-35); Alkaline Phosphatase* 174 U/L (40-150); Aspartate Amino Transferase* 44 U/L (12-35); Blood Urea Nitrogen* 7 mg/dL (7-30); Calcium* 7.3 mg/dL (8.4-10.6); Creatine Kinase* 48 U/L (41-117); Glucose* 79 mg/dL (60-115); Magnesium* 1.7 mg/dL (1.5-2.6); Total Protein* 4.8 g/dL (6.0-8.3)
[2023-07-07 07:38] LABS: C Reactive Protein* 4.3 mg/dL (0.5-1.0); NT Pro B Type NatriureticPept* 1940 pg/mL; Troponin I* < 0.01 ng/mL (0.01-0.04)
[2023-07-07] MEDS: 5 % DEX/0.9 SOD CHL+KCL 20 mEq 1,000 ML 125 ML IV ×2 (08:48→19:42)
[2023-07-07] MEDS: PREGABALIN 100 MG CAPSULE 300 MG PO ×2 (08:49→21:24)
[2023-07-07] MEDS: MULTIVITAMIN/MINERALS 1 TABLET 1 TAB PO (08:49)
[2023-07-07] MEDS: POTASSIUM CHLORIDE 10 MEQ CAPSULE ER 40 MEQ PO ×2 (08:49→13:55)
[2023-07-07] MEDS: FOLIC ACID 1 MG TABLET PO (08:50)
[2023-07-07] MEDS: CYANOCOBALAMIN (VITAMIN B-12) 500 MCG TABLET 1000 MCG PO (08:50)
[2023-07-07] MEDS: CITALOPRAM HYDROBROMIDE 20 MG TABLET 40 MG PO (08:50)
[2023-07-07] MEDS: FUROSEMIDE 40 MG TABLET PO (08:50)
[2023-07-07] MEDS: ASPIRIN 81 MG TAB.CHEW PO (08:50)
[2023-07-07] MEDS: PANTOPRAZOLE SODIUM 40 MG INJ IVP (08:51)
[2023-07-07] MEDS: cefTRIAXone 1 GM in 0.9 % SODIUM CHLORIDE Mini-bag 100 ML IVPB (08:51)
[2023-07-07] MEDS: NYSTATIN CREAM 30 GM 1 APPLIC TOPICAL ×3 (08:56→21:27)
[2023-07-07] MEDS: THIAMINE 250 MG in 0.9 % SODIUM CHLORIDE 100 ml 100 ML 100 MG IVPB ×2 (08:57→13:55)
--- NOTE | 2023-07-07 10:59 | REH.PT ---
Attempted PT x 2 visits today, pt declined. Nsg and Dr. Chen notified. Will attempt again tomorrow.
--- NOTE | 2023-07-07 12:08 | PM.IMPN1 ---
Progress Note: A&P Assessment and plan (1) Hypotension: Problem details: relative, need MAP greater than 60. albumin, fluids, blood - monitor closely echo 07/06/23 Final Impressions: 1. Normal left ventricular size, normal wall thickness, hyperdynamic global systolic function, calculated EF of 77 %. 2. Right ventricular cavity size is normal, global systolic RV function is normal. 3. No significant valve disease detected. Status: Acute (2) Sinus tachycardia: Problem details: Likely multifactorial related to prerenal dehydration and sympathetic drive related to alcohol withdrawal and current infection Status: Acute (3) UTI (urinary tract infection): Problem details: complicated; getting IV rocephin. UC pending. 3rd spacing fluids, pulse remains elevated (sinus); hypotensive. placed catheter and monitoring uop --> low, gave lasix am of 07/05, 07/06 elevated lactate resolved no fever. Room air sats are normal. Status: Acute (4) Weakness: Problem details: Worsening, unable to care for self or independently complete ADLs. Sleeping in wheelchair Failure to thrive. Noncompliant with medications PT/OT consult protective services officer for discharge planning/placement needs Status: Acute (5) Anemia: Problem details: Acute on chronic - ady 8.2, now 9.2 low albumin, given albumin infusion Status: Chronic (6) Hypokalemia: Problem details: Potassium 3.2. Oral supplement ordered. follow Status: Acute (7) Intertriginous dermatitis associated with moisture: Problem details: Keep area clean and dry Nystatin cream Chisholm placed am of 07/05 Status: Acute (8) Wound of lower extremity: Problem details: Wound cares, monitor Status: Acute (9) Alcohol use disorder: Problem details: Drinks 1 bottle of wine daily. History of DTs and seizures ETOH 0.08 on admission CIWA, lorazepam p.r.n. Thiamine, MVI, folic daily Continue IV hydration Status: Chronic (10) Restless leg syndrome: Problem details: Continue Requip Status: Chronic (11) Depression: Problem details: With history of anxiety, insomnia. Has not been compliant with medications lately Continue Celexa, Remeron, Belsomra Status: Chronic (12) Hepatic steatosis: Problem details: With history of elevated LFTs. CT notes severe diffuse hypodensity throughout the liver likely related to severe hepatic steatosis elevated alk phos, AST, intoxicated upon arrival. elevated GGT monitor Status: Chronic (13) History of CVA (cerebrovascular accident): Problem details: Following AVM repair in 2000. Left-sided hemiparesis. Wheelchair dependent Continue Plavix, aspirin Status: Chronic (14) Dyslipidemia: Problem details: Continue statin Status: Chronic Subjective Date Seen: 07/07/23 Interval history: Daily Progress Note - Hospital Medicine Day #: 3 CC: Weakness, complicated UTI, hypotension, tachycardia, anemia OVERNIGHT UPDATES FROM STAFF & MED, LAB, IMAGING UPDATES Charito seemed more awake this morning but a litte groggy - speech a little difficult to understand. ate a good breakfast, tray nearly empty. has PT/OT orders for the day. Afebrile Blood pressures have remained soft and mild sinus tachycardia Respiratory rate is 18 to 20, unlabored Pulse ox is 100% on room air CBC: No leukocytosis, hemoglobin 9.2, platelets 352 MCV 94 PH 7.39 Mild hypokalemia 3.5 Creatinine is 0.4 with a GFR 109 Glucose 86 Lactate is now normal Ionized calcium 1.01 Bilirubin is normal LFTs are mildly elevated GGT 472 C reactive protein is down trending 5.1 down to 4.3 Albumin is significantly depressed at 1.9 Procalcitonin normal B12 greater than 1000 TSH normal Urine culture = 2 gram neg bacteria -awaiting c/s 2 blood cultures pending, negative today Echo 07/05 Final Impressions: 1. Normal left ventricular size, normal wall thickness, hyperdynamic global systolic function, calculated EF of 77 %. 2. Right ventricular cavity size is normal, global systolic RV function is normal. 3. No significant valve disease detected. Objective: Disheveled. Vitals: see above Lungs: Clear. Cardiac: S1S2. Skin: Large areas of excoriation and erythema noted in her perineum and groin. Pressure wounds on bilateral calves. Disposition/Potential discharge - Likely would need some rehab then transitioning to either assisted care or long-term care Today I spent 50minutes seeing the patient, reviewing Expanse and EPIC notes/diagnostics, discussing the care plan with our care time that includes social work, PT/OT, pharmacy, RT, snf and documenting my impressions and plan in the medical record. Exam Const: Vital Signs, click to edit/add: Vital Signs - 24 hr 07/06/23 13:00 07/06/23 13:13 07/06/23 13:19 Temperature 97.8 F 97.7 F Pulse Rate 100 98 Pulse Rate [Apical ] 94 Respiratory Rate 20 18 Blood Pressure 79/36 L 71/46 L Blood Pressure [Ri ght Arm] 79/52 L Pulse Oximetry 100 Oxygen Delivery Ma thod 07/06/23 13:28 07/06/23 14:04 07/06/23 14:22 Temperature 97.6 F 97.2 F L Pulse Rate 82 91 Pulse Rate [Apical ] 92 Respiratory Rate 16 18 Blood Pressure 91/52 L Blood Pressure [Ri ght Arm] 77/45 L Pulse Oximetry Oxygen Delivery Ma thod 07/06/23 15:00 07/06/23 15:00 07/06/23 15:01 Temperature 97.6 F Pulse Rate 94 Pulse Rate [Apical ] 95 95 Respiratory Rate 18 18 Blood Pressure Blood Pressure [Ri ght Arm] 91/52 L Pulse Oximetry 100 [facility] Air 07/06/23 16:00 07/06/23 17:10 07/06/23 19:34 Temperature 97.6 F 98 F 98.7 F Pulse Rate Pulse Rate [Apical ] 95 101 H 96 Respiratory Rate 18 18 18 Blood Pressure Blood Pressure [Ri ght Arm] 91/52 L 86/50 L 98/57 L Pulse Oximetry 100 98 94 [facility] Room Air Room Air Room Air 07/06/23 20:00 07/06/23 22:32 07/06/23 23:00 Temperature 98.7 F Pulse Rate Pulse Rate [Apical ] 96 100 100 Respiratory Rate 18 18 Blood Pressure Blood Pressure [Ri ght Arm] 98/57 L 88/48 L Pulse Oximetry 94 97 [facility]xygen [facility] Air Room Air 07/06/23 23:00 07/07/23 01:02 07/07/23 03:23 Temperature 98.1 F Pulse Rate 97 103 H Pulse Rate [Apical ] 97 Respiratory Rate 18 Blood Pressure Blood Pressure [Ri ght Arm] 89/50 L Pulse Oximetry 92 Oxygen Delivery Ma thod Room Air 07/07/23 03:26 07/07/23 07:25 07/07/23 08:00 Temperature 98.2 F 97.2 F L Pulse Rate 109 H Pulse Rate [Apical ] 104 H 101 H Respiratory Rate 16 16 Blood Pressure Blood Pressure [Ri ght Arm] 90/52 L 95/60 Pulse Oximetry 95 96 Oxygen Delivery Me thod Room Air Room Air 07/07/23 08:00 07/07/23 08:00 07/07/23 10:02 Temperature 97.2 F L 96.7 F L Pulse Rate Pulse Rate [Apical ] 101 H 101 H 106 H Respiratory Rate 16 16 18 Blood Pressure Blood Pressure [Ri ght Arm] 95/60 87/46 L Pulse Oximetry 96 94 Oxygen Delivery Me thod Room Air Room Air 07/07/23 11:13 Temperature Pulse Rate 111 H Pulse Rate [Apical ] Respiratory Rate Blood Pressure Blood Pressure [Ri ght Arm] Pulse Oximetry Oxygen Delivery Me thod Labs Labs: Laboratory Results - last 24 hr 07/06/23 07/06/23 07/07/23 06:03 17:14 06:36 WBC 6.36 RBC 3.18 L Hgb 8.9 L 9.2 L Hct 29.3 L MCV 92 MCH 29 MCHC 31 L RDW Coeff of Lenora 21.1 H Plt Count 352 Neut % (Auto) 61.6 Lymph % (Auto) 22.5 [place] % (Auto) 9.1 Eos % (Auto) 5.2 Baso % (Auto) 1.1 Neut # (Auto) 3.92 Lymph # (Auto) 1.43 [place] # (Auto) 0.60 Eos # (Auto) 0.33 Baso # (Auto) 0.07 Abs Immat Gran (auto) 0.03 Imm/Tot Granulo (auto) 0.5 INR 1.16 H 1.17 H VBG pH 7.413 7.393 VBG pCO2 37 L 43 VBG pO2 59.4 H 50.2 H VBG HCO3 24 26 Sodium 137 138 Potassium 3.3 L 3.5 L Chloride 109 111 Carbon Dioxide 23 25 Anion Gap 5 L 2 L BUN 7 7 Creatinine 0.5 0.4 L Estimated Creat Clear 45.78 45.78 Estimated GFR 103 109 Glucose 89 79 Lactate 3.6 H 1.0 Calcium 7.2 L 7.3 L Magnesium 1.7 Total Bilirubin 0.7 AST 44 H ALT 16 Alkaline Phosphatase 174 H Total Creatine Kinase 48 Troponin I < 0.01 L C-Reactive Protein 4.3 H NT-Pro-B Natriuret Pep 1940 Total Protein 4.8 L Albumin 2.1 L Procalcitonin 0.50 Blood Type O Negative Antibody Screen NEGATIVE Crossmatch (AHG) See Detail
[2023-07-07 13:28] LABS: Fecal Occult Blood* Negative (Negative)
[2023-07-07] MEDS: PHENYTOIN EXTENDED RELEASE 100 MG CAPSULE PO (13:55)
--- NOTE | 2023-07-07 16:48 | PC.SOCIAL ---
Discharge planning- [facility] case advocate, Brenna ([phone]) calls with information that [facility] in [place] (Assisted Living) has immediate openings for pt's with elderly waiver. This worker will meet with pt and see if she is interested and provide information to [facility] worker. Met with pt to discuss discharge plans. Pt would like to go to Assisted Living. Pt had no recollection of social work visit from yesterday and she reports she was too tired. Pt is willing to look at [facility] and [facility] in [place] as placement options. Discussed with pt the possibility of SNF for rehab if she had a skilled need. Pt is fine with going if needed. Informed pt that [facility]ica[facility] will call her cell phone to start the process for admission. Phone call to Brenna ([facility] case advocate) provided update that pt is interested in [facility]. Brenna will reach out to [facility] and get the process started. Faxed referral to [facility] at [phone], per pt request. Received a phone call from Digna [facility] APS Mine Safety Manager, at [phone]. Digna has an open case due to [facility] report that was received. Digna informs that pt's waiver ends on August 26. Pt's waiver worker may come to the hospital to do paperwork to extend the waiver. Digna requests that APS be informed of pt's discharge plans from hospital. Social work will follow up as needed.
[2023-07-07] MEDS: THIAMINE 100 MG TABLET PO (18:17)
--- NOTE | 2023-07-07 18:41 | PC.NURSE ---
End of shift. pt has been very pleasant. no pain. she is alert x3. off on the day and date. tele shows ST. HR 90-110. SL in the right a/c accidently got pulled out by pt. but IV in the Left a/c has been patent all day./ she is up with 2 assist to BSC but then we needed to use the Ez-stand to get her back to bed. dressing change to the lower calves. Left lateral mid calf with nickel sized ulcer. Vaseline gauze to the left leg. and Kerlix. Kerlix to the right leg. pt says that her legs leak. pt left side is flaccid. Chisholm remains patent with dark urine. she got po Lasix today. she is a fall risk and alarms are on. she can move her self somewhat in bed. she can reach the call light and make her needs known, she can feed her self. she takes pills whole and like to devika them down with pudding.
[2023-07-07] MEDS: PHENYTOIN EXTENDED RELEASE 100 MG CAPSULE 200 MG PO (21:22)
[2023-07-07] MEDS: THIAMINE 250 MG in 0.9 % SODIUM CHLORIDE 100 ml 100 ML 102.5 MG IVPB (21:25)
[2023-07-07] MEDS: ROPINIROLE HCL 1 MG TABLET 1.5 MG PO (21:26)
[2023-07-07] MEDS: MIRTAZAPINE 15 MG TABLET 45 MG PO (21:26)
[2023-07-07] MEDS: SODIUM CHLORIDE 0.9 % (FLUSH) 10 ML SYRINGE 5 ML IVF (21:27)
[2023-07-07] MEDS: ENOXAPARIN 30 MG/0.3ML INJ SUBCUT (21:27)
[2023-07-07] MEDS: LORazepam 1 MG TABLET PO (23:04)
[2023-07-08] VITALS (11 sets, daily range): BP systolic 81–116; BP diastolic 35–84; PULSE 95–113; RESP 14–22; TEMP 35.9–36.4; O2SAT 90–100
[2023-07-08] MEDS: SODIUM CHLORIDE 0.9 % (FLUSH) 10 ML SYRINGE 5 ML IVF (00:36)
[2023-07-08] MEDS: LORazepam 2 MG/ML inj IVP (00:36)
[2023-07-08 06:44] LABS: HCO3 VBG 25 mmol/L (21-28); Lactate* 2.1 mmol/L (0.5-1.9); PCO2 VBG 53 mmHG (40-50); PO2 VBG 40.3 mmHG (25-47); pH VBG 7.279 (7.32-7.43)
[2023-07-08 06:47] LABS: Hematocrit 37.2 % (33.0-51.0); Hemoglobin* 11.4 gm/dL (12.0-16.0); Mean Corpuscular HGB Conc 31 gm/dL (32-36); Mean Corpuscular Hemoglobin 29 pg (26-34); Mean Corpuscular Volume 94 fL (80-100); Platelet Count* 359 K/uL (140-440); Red Blood Count 3.94 m/uL (4.00-5.20); White Blood Count* 8.91 K/uL (4.50-11.00)
[2023-07-08 06:48] LABS: Chloride* 114 mmol/L (96-114); Potassium* 4.4 mmol/L (3.6-5.1); Slide Review Reflex No; Sodium* 144 mmol/L (135-149)
[2023-07-08 06:49] LABS: Glucose* 104 mg/dL (60-115)
[2023-07-08] MEDS: 5 % DEX/0.9 SOD CHL+KCL 20 mEq 1,000 ML 125 ML IV (07:00)
[2023-07-08 07:18] LABS: Alanine Aminotransferase* 19 U/L (4-35); Albumin* 2.5 g/dL (3.3-5.0); Anion Gap 8 mEq/L (7-15); Aspartate Amino Transferase* 64 U/L (12-35); Bilirubin Direct* 0.6 mg/dL (0.0-0.5); Bilirubin Total* 0.6 mg/dL (0.1-1.5); Blood Urea Nitrogen* 4 mg/dL (7-30); Calcium* 7.4 mg/dL (8.4-10.6); Carbon Dioxide* 22 mmol/L (20-32); Creatinine* 0.3 mg/dL (0.5-1.5); Est. Creatinine Clearance* 45.78; Estimated Glomerular Filt Rate 117 ml/min; Total Protein* 5.7 g/dL (6.0-8.3)
[2023-07-08 07:19] LABS: Alkaline Phosphatase* 180 U/L (40-150); Gamma Glutamyl Transpeptidase* 471 U/L (8-55)
[2023-07-08 07:37] LABS: C Reactive Protein* 3.8 mg/dL (0.5-1.0)
--- NOTE | 2023-07-08 08:15 | PC.NURSE ---
END OF SHIFT NOTE: CIWA SCORES 6 AND 0. RESTLESS AND AGITATED PRN ATIVAN ADMINISTERED AND WAS EFFECTIVE. VSS ON RA; AFEBRILE. PT REMAINED IN BED THIS SHIFT. CARRIZALES IN PLACE AND DRAINING. TELE READS SINUS TACH.?LEFT ARM REMAINS PUFFY. THIS NURSE WAS MADE AWARE OF RIGHT AC IV INFILTRATED AND RIGHT ARM NOW ALSO SWOLLEN. WARM BLANKET APPLIED.
--- NOTE | 2023-07-08 08:24 | XR_ITS ---
Patient: LEO NICHOLAS Facility:?[facility] Patient ID:?[id number] Site Patient ID:?[id number]. Site :?[id number] Study:?XRay-Chest Portable one view-07/08/2023 10:51:28 AM Ordering Physician:YE Final Report: Indication: Post PICC line placement Comparison: None available. Technique: Single AP view chest Findings: There is satisfactory position of right-sided PICC line. There are diffusely increased interstitial markings likely representing pulmonary vascular congestion. There is no pneumothorax. The cardiomediastinal silhouette is within normal limits. The bony thorax is grossly intact. Impression: Satisfactory position of right-sided PICC line with the tip in the cavoatrial junction. Dictated by Alexander Tracy MD @ 07/08/2023 11:18:29 AM Signed by:?Alexander Tracy MD @07/08/2023 11:18:29 AM (Electronic Signature)
[2023-07-08] MEDS: cefTRIAXone 1 GM in 0.9 % SODIUM CHLORIDE Mini-bag 100 ML IVPB (10:48)
[2023-07-08] MEDS: THIAMINE 250 MG in 0.9 % SODIUM CHLORIDE 100 ml 100 ML 102.5 MG IVPB ×3 (10:52→21:22)
[2023-07-08] MEDS: NYSTATIN CREAM 30 GM 1 APPLIC TOPICAL ×2 (11:14→21:26)
[2023-07-08] MEDS: CIPROFLOXACIN 400 MG/200 ML PIGGYBACK 200 MG IVPB (12:14)
[2023-07-08 12:17] LABS: Lab Add On Test New Spec Needed
[2023-07-08] MEDS: FUROSEMIDE 10 MG/ML inj 80 MG IVP (12:19)
[2023-07-08] MEDS: PREGABALIN 100 MG CAPSULE 300 MG PO ×2 (12:33→21:32)
[2023-07-08] MEDS: PHENYTOIN EXTENDED RELEASE 100 MG CAPSULE PO ×2 (12:33→16:42)
[2023-07-08] MEDS: ASPIRIN 81 MG TAB.CHEW PO (12:33)
[2023-07-08] MEDS: CITALOPRAM HYDROBROMIDE 20 MG TABLET 40 MG PO (12:34)
[2023-07-08 13:04] LABS: Ammonia* < 9.0 umol/L (13.1-30.0)
--- NOTE | 2023-07-08 13:15 | PM.IMPN1 ---
Progress Note: A&P Assessment and plan (1) Encephalopathy: Problem details: metabolic/intermittent. ammonia normal. chronic alcoholism with hx of CVA and AVM exicision. has chronic ICA aneursyms. No head CT has been done as initially her neuro status was stable/baseline. some increased somnolence on 07/07 attributed to doses of ativan, remeron, requip. requip and remeron held; ativan decreased. I think she will need terminal operator care; substance abuse treatment. Does she have insight and motivation to go substance abuse/nursing care ([facility]) or is there more likely a need for SNF - will her alcohol crave still exist with recent physical/cognitive deficits? Status: Acute (2) Elevated troponin: Problem details: demand related over the last 48 hours; mild to moderate hypotension; tachycardia third spacing fluids; mild pulmonary edema now has PICC line given lasix for pulmonary edema; significant 3rd spacing. echo very reassuring this admission no chest pain ECG unremarkable BP improved today follow Status: Acute (3) Weakness: Problem details: Worsening, unable to care for self or independently complete ADLs. Sleeping in wheelchair Failure to thrive. Noncompliant with medications PT/OT consult surgical services tech for discharge planning/placement needs Status: Acute (4) Hypotension: Problem details: relative, MAP goal 60. Holding metoprolol given low MAPs despite tachycardia. albumin infusion, fluids, blood - monitor closely 07/07 - albumin increasing. fluids are causing some pulmonary edema, using lasix to help with third spacing and edema. echo 07/06/23 Final Impressions: 1. Normal left ventricular size, normal wall thickness, hyperdynamic global systolic function, calculated EF of 77 %. 2. Right ventricular cavity size is normal, global systolic RV function is normal. 3. No significant valve disease detected. Status: Acute (5) Sinus tachycardia: Problem details: -Likely multifactorial related to prerenal dehydration and sympathetic drive related to alcohol withdrawal and current infection -goal HR 110 or less. Status: Acute (6) UTI (urinary tract infection): Problem details: BC x 2 NGTD. 2 organisms. switched IV ceftriaxone to IV cipro (one dose as she was obtunded) - will switch to oral cipro. 7 day course of treatment planned. end cipro on 07/10. 3rd spacing fluids, pulse remains elevated (sinus); hypotensive. placed catheter and monitoring uop --> low, gave lasix am of 07/05, 07/06, 07/07 elevated lactate flucuates no fever. Room air sats are normal. Status: Acute (7) Anemia: Problem details: Acute on chronic - ady 8.2, now 9.2 one unit packed cells 07/05 low albumin, given albumin infusion Status: Chronic (8) Hypokalemia: Problem details: trend. on supplementation. Lasix is a new RX for patient and this has caused the low K since admission Status: Acute (9) Intertriginous dermatitis associated with moisture: Problem details: Keep area clean and dry Nystatin cream Chisholm placed am of 07/05 Status: Acute (10) Wound of lower extremity: Problem details: pressure wounds, posterior bilateral calfs Wound cares, monitor Status: Acute (11) Alcohol use disorder: Problem details: Drinks 1 bottle of wine daily. History of DTs and seizures ETOH 0.08 on admission CIWA, lorazepam p.r.n. (careful with ativan, takes awhile to clear) Thiamine, MVI, folic daily Continue IV hydration Status: Chronic (12) Restless leg syndrome: Problem details: Continue Requip Status: Chronic (13) Depression: Problem details: With history of anxiety, insomnia. Has not been compliant with medications lately Continue Celexa, Remeron, Belsomra Status: Chronic (14) Hepatic steatosis: Problem details: With history of elevated LFTs. CT notes severe diffuse hypodensity throughout the liver likely related to severe hepatic steatosis elevated alk phos, AST, intoxicated upon arrival. elevated GGT monitor Status: Chronic (15) ICAO (internal carotid artery occlusion): Problem details: Recurrent. Left. Status post endovascular treatment of a recurrent left ophthalmic ICA aneurysm with the Pipeline device. (01/17) -Annette Merlos M.D. Neurointerventionalist [facility] Status: Acute (16) History of CVA (cerebrovascular accident): Problem details: Following AVM repair in 2000. Left-sided hemiparesis. Wheelchair dependent Holding Plavix; continue aspirin Status: Chronic (17) Dyslipidemia: Problem details: Continue statin Status: Chronic Subjective Date Seen: 07/08/23 Interval history: Daily Progress Note - Hospital Medicine Day #: 4 CC: Weakness, complicated UTI, hypotension, tachycardia, anemia, intermittent encephalopathy OVERNIGHT UPDATES FROM STAFF & MED, LAB, IMAGING UPDATES Charito is nearly obtunded this am. not arousable to more than a few groans and flinch. Got a PICC line (poor access) and minimally flinched. Got ativan x 2 last night (plus requip 1.5mg, + remeron 45mg) - all contributed to sedated state this am Afebrile Blood pressures have remained soft but improved overnight; tachy - sinus. Respiratory rate is 18 to 20, unlabored Pulse ox is 100% on room air CBC: No leukocytosis, hemoglobin 11.4 (marked increase from 9.2 - concentrated?), platelets 359 MCV 94 PH 7.39 --> 7.279 Creatinine is 0.3 with a GFR 109 Glucose 86 Lactate is back up to 2.1 Ionized calcium 1.01 Bilirubin is normal LFTs are mildly elevated ammonia level less than 9 GGT 470's C reactive protein is downtrending Albumin has improved Procalcitonin normal B12 greater than 1000 TSH normal Urine culture = 2 GRAM NEG RODS; CHANGED FROM CEFTRIAXONE TO CIPRO. 2 blood cultures NGTD CXR today Satisfactory position of right-sided PICC line with the tip in the cavoatrial junction. Echo 07/05 Final Impressions: 1. Normal left ventricular size, normal wall thickness, hyperdynamic global systolic function, calculated EF of 77 %. 2. Right ventricular cavity size is normal, global systolic RV function is normal. 3. No significant valve disease detected. Objective: Disheveled. Vitals: see above Lungs: Clear. Cardiac: S1S2. Skin: Large areas of excoriation and erythema noted in her perineum and groin. Pressure wounds on bilateral calves. Disposition/Potential discharge - Likely would need some rehab then transitioning to either assisted care or long-term care Today I spent 50minutes seeing the patient, reviewing Expanse and EPIC notes/diagnostics, discussing the care plan with our care time that includes social work, PT/OT, pharmacy, RT, mcc and documenting my impressions and plan in the medical record. Exam Const: Vital Signs, click to edit/add: Vital Signs - 24 hr 07/07/23 13:28 07/07/23 15:16 07/07/23 17:25 Temperature 96.5 F L 96.8 F L Pulse Rate 103 H Pulse Rate [Apical ] 101 H 107 H Respiratory Rate 18 18 Blood Pressure [Ri ght Arm] 95/54 L 99/63 Pulse Oximetry 92 95 Oxygen Delivery Fl thod Room Air Room Air 07/07/23 17:26 07/07/23 19:00 07/07/23 20:27 Temperature 97.7 F 97.7 F Pulse Rate Pulse Rate [Apical ] 107 H 105 H 105 H Respiratory Rate 18 18 18 Blood Pressure [Ri ght Arm] 101/56 L 101/56 L Pulse Oximetry 98 98 Oxygen Delivery Fl thod Room Air Room Air 07/08/23 00:20 07/08/23 00:20 07/08/23 00:20 Temperature 97.1 F L Pulse Rate 111 H Pulse Rate [Apical ] 108 H 108 H Respiratory Rate 22 22 Blood Pressure [Ri ght Arm] 116/84 Pulse Oximetry 100 Oxygen Delivery Fl thod Room Air 07/08/23 03:12 07/08/23 03:12 07/08/23 07:17 Temperature 97.2 F L 97.2 F L Pulse Rate 113 H Pulse Rate [Apical ] 106 H 106 H Respiratory Rate 20 20 Blood Pressure [Ri ght Arm] Pulse Oximetry 93 93 [facility] 07/08/23 07:45 07/08/23 07:45 07/08/23 09:37 Temperature 96.6 F L 96.6 F L Pulse Rate Pulse Rate [Apical ] 95 95 95 Respiratory Rate 20 20 20 Blood Pressure [Ri ght Arm] 102/35 L 102/35 L Pulse Oximetry 90 90 [facility] Room Air 07/08/23 11:04 07/08/23 11:07 Temperature 96.8 F L 96.8 F L Pulse Rate Pulse Rate [Apical ] 112 H 112 H Respiratory Rate 20 20 Blood Pressure [Ri ght Arm] 109/80 109/80 Pulse Oximetry 98 98 Oxygen Delivery Fl thod Room Air Room Air Labs Labs: Laboratory Results - last 24 hr 07/07/23 07/08/23 07/08/23 13:00 06:06 12:07 WBC 8.91 RBC 3.94 L Hgb 11.4 L Hct 37.2 MCV 94 MCH 29 MCHC 31 L Plt Count 359 VBG pH 7.279 L VBG pCO2 53 H VBG pO2 40.3 VBG HCO3 25 Sodium 144 Potassium 4.4 Chloride 114 Carbon Dioxide 22 Anion Gap 8 BUN 4 L Creatinine 0.3 L Estimated Creat Clear 45.78 Estimated GFR 117 Glucose 104 Lactate 2.1 H Calcium 7.4 L Total Bilirubin 0.6 Direct Bilirubin 0.6 H GGT 471 H AST 64 H ALT 19 Alkaline Phosphatase 180 H Ammonia C-Reactive Protein 3.8 H Total Protein 5.7 L Albumin 2.5 L Stool Occult Blood Negative Lab Acknowledgement New Spec Needed 07/08/23 07/08/23 12:22 12:42 WBC RBC Hgb Hct MCV MCH MCHC Plt Count VBG pH VBG pCO2 VBG pO2 VBG HCO3 Sodium Potassium Chloride Carbon Dioxide Anion Gap BUN Creatinine Estimated Creat Clear Estimated GFR Glucose Lactate Calcium Total Bilirubin Direct Bilirubin GGT AST ALT Alkaline Phosphatase Ammonia < 9.0 L C-Reactive Protein Total Protein Albumin Stool Occult Blood Lab Acknowledgement Test Added
[2023-07-08 14:14] LABS: NT Pro B Type NatriureticPept* 1250 pg/mL
--- NOTE | 2023-07-08 14:44 | PC.NURSE ---
End of shift. pt has been very pleasant. once she work up. she was sedated this am and did not wake up till 1300. was aware and was in to see several times. once she was awake. no pain. she is alert x3. off on the day and date. tele shows ST. HR 100*120. SL in the right FA was patent ,but the arm was hard. SL was d/c and SALES REPRESENTATIVE [employer] came to start a SL after 2 misses attempts. PICC stat was called and PICC was started. she is up with 2 assist to BSC pt left side is flaccid. Chisholm remains patent with dark urine. she got IV Lasix today. she is a fall risk and alarms are on. she can move her self somewhat in bed. she can reach the call light and make her needs known, she can feed her self. she takes pills whole and like to devika them down with pudding. ativan was changed to .25-.5 Q4 hours.
[2023-07-08 18:05] LABS: HCO3 VBG 28 mmol/L (21-28); Lactate* 2.2 mmol/L (0.5-1.9); PCO2 VBG 41 mmHG (40-50); PO2 VBG 37.5 mmHG (25-47); pH VBG 7.448 (7.32-7.43)
[2023-07-08 18:23] LABS: Chloride* 111 mmol/L (96-114); Potassium* 3.7 mmol/L (3.6-5.1); Sodium* 137 mmol/L (135-149)
[2023-07-08 18:26] LABS: Anion Gap -1 mEq/L (7-15); Carbon Dioxide* 27 mmol/L (20-32); Creatinine* 0.3 mg/dL (0.5-1.5); Est. Creatinine Clearance* 45.78; Estimated Glomerular Filt Rate 117 ml/min
[2023-07-08 18:27] LABS: Calcium* 7.1 mg/dL (8.4-10.6); Glucose* 79 mg/dL (60-115)
[2023-07-08 18:29] LABS: Blood Urea Nitrogen* < 2 mg/dL (7-30)
[2023-07-08 18:52] LABS: Troponin I* 0.25 ng/mL (0.01-0.04)
[2023-07-08] MEDS: ALBUMIN HUMAN 25% 25 GM/100 ML VIAL IVPB (20:23)
[2023-07-08] MEDS: ENOXAPARIN 30 MG/0.3ML INJ SUBCUT (21:15)
[2023-07-08] MEDS: PHENYTOIN EXTENDED RELEASE 100 MG CAPSULE 200 MG PO (21:16)
[2023-07-08] MEDS: 0.9 % SODIUM CHLORIDE 500 ML 500 ML IV (21:22)
[2023-07-08] MEDS: ROPINIROLE HCL 1 MG TABLET 1.5 MG PO (21:26)
[2023-07-08] MEDS: CIPROFLOXACIN 250 MG TABLET PO (21:26)
[2023-07-08] MEDS: FUROSEMIDE 10 MG/ML inj 20 MG IVP (22:26)
--- NOTE | 2023-07-08 22:32 | XR_ITS ---
Patient: LEO NICHOLAS Facility:?[facility] Patient ID:?[id number] Site Patient ID:?[id number] Site :?[id number] Study:?XRay-Chest Portable-07/08/2023 10:48:44 PM Ordering Physician:Jennifer Blanco Final Report: INDICATION: Follow-up, PICC placement, UTI. TECHNIQUE: Chest 1 view. COMPARISON: Earlier same day chest radiograph. FINDINGS: Low lung volumes. Trace left pleural effusion with left basilar atelectasis. No pneumothorax. Heart size and pulmonary vasculature are within normal limits. Right PICC with tip in the low SVC approximately 1.5 cm above the cavoatrial junction. Chronic appearing deformity of the left proximal humerus. IMPRESSION: 1. Right PICC with tip in the low SVC. This could be advanced approximately 1.5 cm. 2. Trace left pleural effusion with left basilar atelectasis. Dictated by Winnie Wren MD @ 07/08/2023 11:20:53 PM Signed by:?Winnie Wren MD @07/08/2023 11:20:53 PM (Electronic Signature)
--- NOTE | 2023-07-08 23:03 | PC.NURSE ---
End of Shift: Upon 1500 assessment the patient was drowsy but able to answer questions. Alert and orientated. At 1600 the patient was difficult to arouse and barely responsive to sternal rub.. noted to be hypotensive and tachycardic with some accessory muscles used with breathing. Dr Blanco was made aware. BLE WOC was completed with the patient remaining lethargic. BUE PITTING EDEMA is noted as well as BLE pitting edema... Ascites present to abdomen. ZION PICC in place... no blood return from regular port noted. Labs were obtained from the other port present on the PICC and the cap was changed. Albumin order, 500cc NS bolus, and 1x Lasix 20mg orders were received and completed. Ez stand AX3 transfer from the chair into bed due to unresponsiveness. Coccyx is reddened and jeanmarie care was preformed, groin area was also excoriated cleansed and nystatin was applied. Q2 reposition in bed. LUE weakness is noted from past stroke. The patient is now more alert and does not recall sleeping throughout the day. PRN nebs were ordered by Dr Blanco due to audible wheeze being present. Call light within reach. María Elena BARKLEY BSN
[2023-07-09] VITALS (21 sets, daily range): BP systolic 86–131; BP diastolic 50–83; PULSE 91–111; RESP 18–22; TEMP 36.5–37.2; O2SAT 93–94
[2023-07-09] MEDS: 5 % DEX/0.9 SOD CHL+KCL 20 mEq 1,000 ML 75 ML IV (00:09)
[2023-07-09] MEDS: IPRAT-ALBUT 0.5-2.5 MG/3 ML NEB 1 NEB IH ×2 (00:09→03:27)
[2023-07-09 06:40] LABS: HCO3 VBG 28 mmol/L (21-28); Lactate* 2.9 mmol/L (0.5-1.9); PCO2 VBG 39 mmHG (40-50); PO2 VBG 39.7 mmHG (25-47); pH VBG 7.453 (7.32-7.43)
--- NOTE | 2023-07-09 06:42 | PC.NURSE ---
End of shift [id number]: Pleasant and cooperative with cares. Oriented to self and day, requires reorientation frequently. Patient wakes to verbal stimuli, appears fatigued and will fall asleep during conversation. Denies any pain, does report shortness of breath but SOB well managed with nebulizers. O2 sats maintained >94% on room air.
[2023-07-09 06:47] LABS: Hematocrit 25.5 % (33.0-51.0); Hemoglobin* 8.1 gm/dL (12.0-16.0); Mean Corpuscular HGB Conc 32 gm/dL (32-36); Mean Corpuscular Hemoglobin 30 pg (26-34); Mean Corpuscular Volume 94 fL (80-100); Platelet Count* 289 K/uL (140-440); Red Blood Count 2.72 m/uL (4.00-5.20)
[2023-07-09 06:50] LABS: Slide Review Reflex No
[2023-07-09 07:16] LABS: Troponin I* 0.15 ng/mL (0.01-0.04)
[2023-07-09 07:22] LABS: Albumin* 2.1 g/dL (3.3-5.0)
[2023-07-09 07:23] LABS: Chloride* 111 mmol/L (96-114); Potassium* 3.2 mmol/L (3.6-5.1); Sodium* 138 mmol/L (135-149)
[2023-07-09 07:25] LABS: Anion Gap 0 mEq/L (7-15); Aspartate Amino Transferase* 52 U/L (12-35); Bilirubin Direct* 0.3 mg/dL (0.0-0.5); Bilirubin Total* 0.5 mg/dL (0.1-1.5); Carbon Dioxide* 27 mmol/L (20-32); Creatinine* 0.4 mg/dL (0.5-1.5); Est. Creatinine Clearance* 45.78; Estimated Glomerular Filt Rate 109 ml/min; Total Protein* 4.6 g/dL (6.0-8.3)
[2023-07-09 07:26] LABS: Alanine Aminotransferase* 15 U/L (4-35); Alkaline Phosphatase* 127 U/L (40-150); Glucose* 93 mg/dL (60-115)
[2023-07-09 07:27] LABS: Blood Urea Nitrogen* < 2 mg/dL (7-30)
[2023-07-09 08:17] LABS: INR 1.14 (0.91-1.10); Partial Thromboplastin Time* 33 Seconds (23-33); Prothrombin Time 15.4 Seconds
[2023-07-09] MEDS: POTASSIUM CHLORIDE 10 MEQ CAPSULE ER 40 MEQ PO (08:27)
[2023-07-09] MEDS: CALCIUM GLUC 1,000MG/50 ML 1,000 MG/50 ML BAG 100 MG IVPB (08:27)
[2023-07-09] MEDS: ASPIRIN 81 MG TAB.CHEW PO (08:31)
[2023-07-09] MEDS: PREGABALIN 100 MG CAPSULE 300 MG PO (08:31)
[2023-07-09] MEDS: CYANOCOBALAMIN (VITAMIN B-12) 500 MCG TABLET 1000 MCG PO (08:31)
[2023-07-09] MEDS: CITALOPRAM HYDROBROMIDE 20 MG TABLET 40 MG PO (08:31)
[2023-07-09] MEDS: FOLIC ACID 1 MG TABLET PO (08:32)
[2023-07-09] MEDS: MULTIVITAMIN/MINERALS 1 TABLET 1 TAB PO (08:32)
[2023-07-09] MEDS: PHENYTOIN EXTENDED RELEASE 100 MG CAPSULE PO ×2 (08:32→14:19)
--- NOTE | 2023-07-09 10:18 | P.DS_ITS ---
Transfer Discharge Sum: Prov Provider Time Seen by Provider: 07:43 Date Seen: 07/09/23 Date of admission: 07/05/23 17:04 Primary care physician: Neelima Shukla DO Consults: 07/05/23 17:04 Consult to Occupational Therapy [CONS] Routine Comment: Reason(s) for OT Consult:: Evaluate and Treat Any Restrictions?:: No Restrictions Consult to Physical Therapy [CONS] Routine Comment: Reason(s) for PT Consult:: Evaluate and Treat Any Restrictions?:: No Restrictions Consult to Cover Remover [CONS] Routine Comment: Reason for Consult:: Social Service Consult 07/05/23 18:41 Consult to Cover Remover [CONS] Routine Comment: Reason for Consult:: Social Service Consult Attending physician on discharge: Mirela Eller Anticipated date of transfer: 07/09/23 Receiving physician/facility: IVDAL Jones, Dr. Vitale DS: Diagnosis Discharge Diagnosis (1) Encephalopathy: Status: Acute Problem details: metabolic/intermittent. ammonia normal. chronic alcoholism with hx of CVA and AVM exicision. has chronic ICA aneursyms. No head CT has been done as initially her neuro status was stable/baseline. some increased somnolence on 07/07 attributed to doses of ativan, remeron, requip. requip and remeron held; ativan decreased. I think she will need adjunct faculty for medical terminology care; substance abuse treatment. Does she have insight and motivation to go substance abuse/nursing care ([place]) or is there more likely a need for SNF - will her alcohol crave still exist with recent physical/cognitive deficits? (2) Elevated troponin: Status: Acute Problem details: demand related over the last 48 hours; mild to moderate hypotension; tachycardia third spacing fluids; mild pulmonary edema now has PICC line given lasix for pulmonary edema; significant 3rd spacing. echo very reassuring this admission no chest pain ECG unremarkable BP improved today follow (3) Weakness: Status: Acute Problem details: Worsening, unable to care for self or independently complete ADLs. Sleeping in wheelchair Failure to thrive. Noncompliant with medications PT/OT consult patient services technician for discharge planning/placement needs (4) Hypotension: Status: Acute Problem details: relative, MAP goal 60. Holding metoprolol given low MAPs despite tachycardia. albumin infusion, fluids, blood - monitor closely 07/07 - albumin increasing. fluids are causing some pulmonary edema, using lasix to help with third spacing and edema. echo 07/06/23 Final Impressions: 1. Normal left ventricular size, normal wall thickness, hyperdynamic global systolic function, calculated EF of 77 %. 2. Right ventricular cavity size is normal, global systolic RV function is normal. 3. No significant valve disease detected. (5) Sinus tachycardia: Status: Acute Problem details: -Likely multifactorial related to prerenal dehydration and sympathetic drive related to alcohol withdrawal and current infection -goal HR 110 or less. (6) UTI (urinary tract infection): Status: Acute Problem details: BC x 2 NGTD. 2 organisms. switched IV ceftriaxone to IV cipro (one dose as she was obtunded) - will switch to oral cipro. 7 day course of treatment planned. end cipro on 07/10. 3rd spacing fluids, pulse remains elevated (sinus); hypotensive. placed catheter and monitoring uop --> low, gave lasix am of 07/05, 07/06, 07/07 elevated lactate flucuates no fever. Room air sats are normal. (7) Alcohol use disorder: Status: Chronic Problem details: Drinks 1 bottle of wine daily. History of DTs and seizures ETOH 0.08 on admission CIWA, lorazepam p.r.n. (careful with ativan, takes awhile to clear) Thiamine, MVI, folic daily Continue IV hydration (8) Anemia: Status: Chronic Problem details: Acute on chronic - ady 8.2, now 9.2 one unit packed cells 07/05 low albumin, given albumin infusion (9) Hypokalemia: Status: Acute Problem details: trend. on supplementation. Lasix is a new RX for patient and this has caused the low K since admission (10) Intertriginous dermatitis associated with moisture: Status: Acute Problem details: Keep area clean and dry Nystatin cream Chisholm placed am of 07/05 (11) Restless leg syndrome: Status: Chronic Problem details: Continue Requip (12) Hepatic steatosis: Status: Chronic Problem details: With history of elevated LFTs. CT notes severe diffuse hypodensity throughout the liver likely related to severe hepatic steatosis elevated alk phos, AST, intoxicated upon arrival. elevated GGT monitor (13) ICAO (internal carotid artery occlusion): Status: Acute Problem details: Recurrent. Left. Status post endovascular treatment of a recurrent left ophthalmic ICA aneurysm with the [employer] device. (01/17) -Annette Merlos M.D. Neurointerventionalist [facility] (14) History of CVA (cerebrovascular accident): Status: Chronic Problem details: Following AVM repair in 2000. Left-sided hemiparesis. Wheelchair dependent Holding Plavix; continue aspirin Transfer Discharge Sum: Med Medications Active and Home Medications: Home Medications aspirin 81 mg chewable tablet 81 mg PO DAILY 07/05/23 [History Confirmed 07/05/23] calcium carbonate (Antacid (calcium carbonate)) 200 mg PO QID PRN 07/05/23 [History Confirmed 07/05/23] cholecalciferol (vitamin D3) 50 mcg (2,000 unit) capsule (Vitamin D3) 50 mcg PO DAILY 07/05/23 [History Confirmed 07/05/23] citalopram 40 mg tablet 40 mg PO DAILY 07/05/23 [History Confirmed 07/05/23] clopidogrel 75 mg tablet 75 mg PO Q48H 07/05/23 [History Confirmed 07/05/23] cyanocobalamin (vitamin B-12) 1,000 mcg tablet 1,000 mcg PO DAILY 07/05/23 [History Confirmed 07/05/23] folic acid 1 mg tablet 1 mg PO DAILY 07/05/23 [History Confirmed 07/05/23] metoprolol tartrate 50 mg tablet 50 mg PO BID blood pressure 07/05/23 [History Confirmed 07/05/23] mirtazapine 45 mg tablet 45 mg PO QPM 07/05/23 [History Confirmed 07/05/23] multivitamin 1 tab PO DAILY 07/05/23 [History Confirmed 07/05/23] nicotine (polacrilex) 4 mg buccal lozenge 4 mg buccal Q1-2H PRN 07/05/23 [History Confirmed 07/05/23] omeprazole 20 mg capsule,delayed release 20 mg PO QAM 07/05/23 [History Confirmed 07/05/23] phenytoin sodium extended 100 mg capsule 100 mg PO BID@,14 07/05/23 [History Confirmed 07/05/23] phenytoin sodium extended 100 mg capsule (Dilantin Extended) 200 mg PO HS 07/05/23 [History Confirmed 07/05/23] pregabalin 300 mg capsule 300 mg PO BID 07/05/23 [History Confirmed 07/05/23] ropinirole 0.5 mg tablet 1.5 mg PO HS 07/05/23 [History Confirmed 07/05/23] rotigotine 2 mg/24 hour transdermal 24 hour patch (Neupro) 1 patch topical DAILY 07/05/23 [History Confirmed 07/05/23] sumatriptan succinate 100 mg tablet 100 mg PO BID PRN migraine 07/05/23 [History Confirmed 07/05/23] suvorexant 20 mg tablet (Belsomra) 20 mg PO HS 07/05/23 [History Confirmed 07/05/23] Active Medications Acetaminophen (Acetaminophen 325 Mg Tablet) 650 - 975 mg PO Q6H PRN Albuterol/Ipratropium (Iprat-Albut 0.5-2.5 Mg/3 Ml Neb) 1 neb IH Q2H PRN Last Admin: 07/09/23 03:27 Dose: 1 neb Aspirin (Aspirin 81 Mg Tab.Chew) 81 mg PO DAILY [facility] Last Admin: 07/09/23 08:31 Dose: 81 mg Bisacodyl (Bisacodyl 10 Mg Supp.Rect) 10 mg ID DAILY PRN Calcium Carbonate (Calcium Carbonate 500 Mg Chew) 500 mg PO QID PRN Ciprofloxacin (Ciprofloxacin 250 Mg Tablet) 250 mg PO BID [facility] Stop: 07/11/23 21:01 Last Admin: 07/08/23 21:26 Dose: 250 mg Citalopram Hydrobromide (Citalopram Hydrobromide 20 Mg Tablet) 40 mg PO DAILY [facility] Last Admin: 07/09/23 08:31 Dose: 40 mg Clopidogrel Bisulfate (Clopidogrel 75 Mg Tablet) 75 mg PO Q48H [facility] Last Admin: 07/06/23 10:03 Dose: 75 mg Cyanocobalamin (Cyanocobalamin (Vitamin B-12) 500 Mcg Tablet) 1,000 mcg PO DAILY [facility] Last Admin: 07/09/23 08:31 Dose: 1,000 mcg Enoxaparin Sodium (Enoxaparin 30 Mg/0.3ml Inj) 30 mg SUBCUT Q24H [facility] Last Admin: 07/08/23 21:15 Dose: 30 mg Flumazenil (Flumazenil 0.1 Mg/Ml Inj) 0.2 mg IVP Q1M PRN PRN Reason: Respiratory Depression Folic Acid (Folic Acid 1 Mg Tablet) 1 mg PO DAILY [facility] Last Admin: 07/09/23 08:32 Dose: 1 mg Potassium Chloride/Dextrose/Sod Cl (5 % Dex/0.9 Sod Chl+Kcl 20 Meq) 1,000 mls @ 75 mls/hr IV .[id number] [facility] Last Admin: 07/09/23 00:09 Dose: 75 mls/hr Norepinephrine/Dextrose (Norepinephrine Infusion) 4,000 mcg in 250 mls @ 33.662 mls/hr IV CONT PRN; Protocol PRN Reason: SBP<90 or MAP <65 Last Admin: 07/09/23 10:01 Dose: 0.1 mcg/kg/min, 33.66 mls/hr Lorazepam (Lorazepam 2 Mg/Ml Inj) 1 - 4 mg IVP Q1H PRN; Protocol PRN Reason: Alcohol Withdrawal Last Admin: 07/08/23 00:36 Dose: 1 mg Lorazepam (Lorazepam 0.5 Mg Tablet) 0.25 - 0.5 mg PO Q4H PRN Melatonin (Melatonin 3 Mg Tablet) 3 - 6 mg PO HS PRN Metoprolol Tartrate (Metoprolol Tartrate 50 Mg Tablet) 50 mg PO BID [facility] Last Admin: 07/06/23 10:06 Dose: 50 mg Mirtazapine (Mirtazapine 15 Mg Tablet) 45 mg PO HS [facility] Last Admin: 07/07/23 21:26 Dose: 45 mg Multivitamins/Minerals (Multivitamin/Minerals 1 Tablet) 1 tab PO DAILY [facility] Last Admin: 07/09/23 08:32 Dose: 1 tab Nicotine Polacrilex (Nicotine Polacrilex 4 Mg Lozenge) 4 mg BUCCAL Q1H PRN Last Admin: 07/06/23 15:38 Dose: 4 mg Rotigotine [Neupro] 2 Mg/24 Hour Patch 24 Hour 0 patch TOPICAL DAILY [facility] Last Admin: 07/09/23 08:32 Dose: Not Given Suvorexant [Belsomra (] 20 Mg Tablet) 0 mg PO HS [facility] Last Admin: 07/07/23 21:28 Dose: Not Given Nystatin (Nystatin Cream 30 Gm) 1 applic TOPICAL TID [facility] Last Admin: 07/08/23 21:26 Dose: 1 applic Pantoprazole Sodium (Pantoprazole Sodium 40 Mg Inj) 40 mg IVP DAILY [facility] Last Admin: 07/07/23 08:56 Dose: Not Given Phenytoin Sodium (Phenytoin Extended Release 100 Mg Capsule) 100 mg PO BID@09,14 [facility] Last Admin: 07/09/23 08:32 Dose: 100 mg Phenytoin Sodium (Phenytoin Extended Release 100 Mg Capsule) 200 mg PO HS [facility] Last Admin: 07/08/23 21:16 Dose: 200 mg Polyethylene Glycol (Polyethylene Glycol 3350 17 Gm Pack) 17 gm PO DAILY PRN Pregabalin (Pregabalin 100 Mg Capsule) 300 mg PO BID [facility] Last Admin: 07/09/23 08:31 Dose: 300 mg Prochlorperazine (Prochlorperazine 5 Mg/Ml Vial) 5 mg IV Q6H PRN PRN Reason: Nausea And Vomiting Ropinirole HCl (Ropinirole Hcl 1 Mg Tablet) 1.5 mg PO HS [facility] Last Admin: 07/08/23 21:26 Dose: 1.5 mg Senna/Docusate Sodium (Sennosides/Docusate Tablet) 1 tab PO DAILY PRN Sodium Chloride (Sodium Chloride 0.9 % (Flush) 10 Ml Syringe) 5 ml IVF .FLUSH PRN Last Admin: 07/08/23 00:36 Dose: 5 ml Sodium Chloride (Sodium Chloride 0.9 % (Flush) 10 Ml Syringe) 5 ml IVF BID [facility] Last Admin: 07/09/23 08:32 Dose: Not Given Vitamin D (Cholecalciferol (Vitamin D3) 25 Mcg Tablet (1000 Unit)) 50 mcg PO DAILY [facility] Last Admin: 07/09/23 08:32 Dose: 50 mcg Transfer Discharge Sum: Hosp Hospital Course Hospital course: Per H&P: Sultana Mueller is a 68 year old female past medical history significant for cerebral aneurysm, CVA following AVM repair in 2000 with left-sided deficit, wheelchair-bound, seizure disorder, dyslipidemia, GERD, hepatic steatosis, alcohol use disorder, moderate, elevated liver enzymes, chronic low back pain, depression, anxiety, insomnia, restless legs syndrome is admitted to the medical floor from the ED for worsening weakness, failure to thrive, urinary tract infection. Patient resides in her own apartment in the [facility]. She has a home health nurse that comes twice a month. She has a [employer] that comes Tuesday through . Her home health nurse was visiting today, reporting that she did not look well, and recommended she be seen in the emergency department. Patient admits that she has not felt well for some time. Recently, she has noticed blood in her urine. She has complained of her skin being very dry. She tells me she has had sores in the coccyx region for the past several months, none of which have been evaluated by her PCP. In her increasing weakness, she has been unable to care for herself. She used to be able to transfer from her wheelchair to her bed or another chair but has been too weak to do that for the past 3 weeks. She has been sleeping in her wheelchair. She has had several falls with attempts to transfer. She has not taken a shower for weeks. She uses adult diapers but has difficulty changing needs and getting clean. The past 2 nights she has had loose stools. Her urine has smelled strong. She admits to feeling more depressed than usual. She has not been taking her medications, other than her bedtime medications and her Dilantin, as prescribed. She drinks 1 bottle of wine daily. She is a nonsmoker. Denies narcotic or drug use. Recently, admits to daily headaches. Dizziness is no worse than usual. Denies fevers chills or sweats. Denies chest pain or shortness of breath. Denies cough. Denies abdominal pain. Has occasional bouts of nausea without vomiting. Has had loose stools the last 2 nights. With fluid resuscitation, she showed signs of 3rd spacing with worsening anasarca. She had no evidence of withdrawal. She remained hypotensive fairly consistently in this hospital stay for which she has been given knee almost 9 L of IV fluids and has taken in the another 4000 on oral fluids over the last 4 days. This morning she has refractory hypotension with tachycardia despite still being on IV fluids and anasarca is worsening. She had gotten a small dose of albumin with Lasix and unit of blood during her hospital stay, however this did not have much effect. This morning I spoke with the security operations engineer from [place], Dr. Moore from Nephrology about the possibility of acute nephrotic syndrome. She recommended a spot urine protein to creatinine ratio. I have ordered this. I then spoke with Dr. Vitale , [facility] foster care case manager who recommended treating with vasopressin drip, oral midodrine, 250 mL of IV albumin every 6 hours and then diuresis once the blood pressure improves. Unfortunately we had no more than 200 mL of albumin available to us this weekend and there was no way that I could order a vasopressin drip through our EMR. I spoke with Dr. Vitale again who accepted this patient in transfer and suggested Levophed for the time being. I started this and her blood pressure improved. She is in now stable condition for transfer via ambulance on IV Levophed to [place] ICU for the treatment of refractory hypotension/shock. Time Spent with Patient Time attestation: Total time spent providing and/or coordinating transfer services: 80 minutes. Exam Narrative: Exam Narrative: General: No acute distress. Awake, alert, oriented to self and month. She knew she was in the hospital but could not figure out which city. No pallor. No jaundice. Oropharynx: Clear. Mucous membranes moist. Cardiovascular: Tachycardic, regular. No murmurs, gallops, or rubs. Respiratory: Clear to auscultation bilaterally. No wheezes or crackles. Abdomen: Bowel sounds present. No ascites noted. Soft, nondistended, nontender. Edema of the skin noted. Extremities: Anasarca with edema the legs all the way up through her mid back, genitals, and arms. Const: Vital Signs, click to edit/add: Vital Signs - 24 hr 07/08/23 11:04 07/08/23 11:07 07/08/23 15:00 Temperature 96.8 F L 96.8 F L 97.0 F L Pulse Rate Pulse Rate [Apical ] 112 H 112 H 103 H Respiratory Rate 20 20 16 Blood Pressure [Le ft Arm] Blood Pressure [Ri ght Arm] 109/80 109/80 91/52 L Pulse Oximetry 98 98 98 Oxygen Delivery Mn thod Room Air Room Air Room Air 07/08/23 15:00 07/08/23 18:59 07/08/23 19:45 Temperature 96.8 F L Pulse Rate 107 H Pulse Rate [Apical ] 98 101 H Respiratory Rate 14 14 Blood Pressure [Le ft Arm] 81/47 L 84/43 L Blood Pressure [Ri ght Arm] Pulse Oximetry 96 94 Oxygen Delivery Mn thod Room Air Room Air 07/08/23 23:00 07/08/23 23:00 07/08/23 23:00 Temperature 97.6 F Pulse Rate 103 H Pulse Rate [Apical ] 103 H 103 H Respiratory Rate 20 20 Blood Pressure [Le ft Arm] 86/52 L Blood Pressure [Ri ght Arm] Pulse Oximetry 94 Oxygen Delivery Me thod Room Air 07/09/23 03:00 07/09/23 07:00 07/09/23 07:00 Temperature 97.7 F 99.0 F 99.0 F Pulse Rate Pulse Rate [Apical ] 111 H 105 H 105 H Respiratory Rate 22 18 18 Blood Pressure [Le ft Arm] 92/50 L 86/52 L 86/52 L Blood Pressure [Ri ght Arm] Pulse Oximetry 94 93 93 Oxygen Delivery Me thod Room Air Room Air Room Air 07/09/23 10:01 Temperature Pulse Rate Pulse Rate [Apical ] Respiratory Rate Blood Pressure [Le ft Arm] 91/55 L Blood Pressure [Ri ght Arm] Pulse Oximetry Oxygen Delivery Me thod Transfer Discharge Sum: Data Data Completed and Pending Completed studies during hospitalization: 07/05/2023 EKG: Sinus tachycardia, cannot rule out inferior infarct, age undetermined, ST and T-wave abnormality, consider lateral ischemia, heart rate 116 beats per minute. Study: CT-Abdomen/Pelvis w/ 95cc [id number]/9/2024 4:46:07 PM Ordering Physician: Edyta Sales Final Report: INDICATION: Hematuria, UTI. TECHNIQUE: CT abdomen and pelvis acquired with 95 cc Isovue 370 IV contrast. COMPARISON: None. FINDINGS: Lower chest: Unremarkable. Liver: Severe diffuse hypodensity throughout the liver likely related to severe hepatic steatosis. Gallbladder and bile ducts: Unremarkable. No stones or inflammation. No biliary dilatation. Pancreas: Unremarkable. No mass or inflammation. Spleen: Unremarkable. Normal in size. No masses. Adrenal glands: Unremarkable. No nodules. Kidneys: Unremarkable. No suspicious masses, stones, or hydronephrosis. GI tract: Unremarkable. Normal in caliber. No sign of mass or inflammation. Normal appendix. Vasculature: Abdominal aorta is normal in caliber. Mesenteric arteries are patent. Lymph nodes: No lymphadenopathy. Peritoneum/Abdominal Wall: Unremarkable. No sign of mass or infiltration. No free air or significant free fluid. Pelvis: Circumferential bladder wall thickening with mild mucosal enhancement is noted. Fibroid within the uterus is noted, otherwise unremarkable. Bones: Unremarkable for age. IMPRESSION: 1. circumferential bladder wall thickening likely related to urinary infection. Correlate with UA. 2. No renal or ureteral stones or other lesions identified on this single phase CT. 3. Severe hepatic steatosis. Please note that all CT scans at this facility use dose modulation, iterative reconstruction, and/or weight-based dosing when appropriate to reduce radiation dose to as low as reasonably achievable. Dictated by Kathleen Gill MD @ 07/05/2023 5:14:40 PM Signed by: Kathleen Gill MD @07/05/2023 5:14:40 PM (Electronic Signature) Dictated By: Kathleen Gill M.D. Signed By: 07/06/2302 DD/ 13 TD/TT: 07/06/2301 Concrete Placement Equipment Operator: Study: CT-Chest W/ 95CC ISOVUE-370 PE PROTOCOL-07/05/2023 4:46:09 PM Ordering Physician: Edyta Sales Final Report: INDICATION: Hematuria, UTI. TECHNIQUE: CT chest PE was acquired with 95 cc Isovue 370 IV contrast. COMPARISON: None. FINDINGS: Heart and vasculature: Contrast opacification of the pulmonary arterial tree is adequate. No sign of pulmonary embolism. Heart size is normal. Thoracic aorta and pulmonary artery are normal in caliber. Lungs and pleura: Linear opacities in the left lower lobe and lingula likely a telectasis. Mild bibasilar dependent ground-glass opacities likely atelectasis. Otherwise, no suspicious parenchymal opacities or nodules. No pleural effusions, pleural thickening, or pneumothorax. Lymph nodes/mediastinum: No mediastinal, hilar, or axillary adenopathy. Chest wall: No masses. Upper abdomen: Please see separately dictated CT of the abdomen and pelvis for further details. Bones: Multiple old left-sided rib fractures. Mild multilevel degenerative changes. IMPRESSION: No pulmonary embolism identified. No acute cardiopulmonary process identified. Please note that all CT scans at this facility use dose modulation, iterative reconstruction, and/or weight-based dosing when appropriate to reduce radiation dose to as low as reasonably achievable. Dictated by Kathleen Gill MD @ 07/05/2023 5:19:05 PM Signed by: Kathleen Gill MD @07/05/2023 5:19:05 PM (Electronic Signature) Dictated By: Kathleen Gill M.D. Signed By: 07/06/23 0700 DD/ 18 TD/TT: 07/06/23 0659 Study: XRay-Chest Portable one view-07/08/2023 10:51:28 AM Ordering Physician: SERGIO Final Report: Indication: Post PICC line placement Comparison: None available. Technique: Single AP view chest Findings: There is satisfactory position of right-sided PICC line. There are diffusely increased interstitial markings likely representing pulmonary vascular congestion. There is no pneumothorax. The cardiomediastinal silhouette is within normal limits. The bony thorax is grossly intact. Impression: Satisfactory position of right-sided PICC line with the tip in the cavoatrial junction. Dictated by Alexander Tracy MD @ 07/08/2023 11:18:29 AM Signed by: Alexander Tracy MD @07/08/2023 11:18:29 AM (Electronic Signature) Dictated By: Alexander Tracy M.D. Signed By: 07/08/23 1120 DD/ 1118 TD/TT: 07/08/23 1119 Study: XRay Chest Portable-07/08/2023 10:48:44 PM Ordering Physician: Shannon Blanco Final Report: INDICATION: Follow-up, PICC placement, UTI. TECHNIQUE: Chest 1 view. COMPARISON: Earlier same day chest radiograph. FINDINGS: Low lung volumes. Trace left pleural effusion with left basilar atelectasis. No pneumothorax. Heart size and pulmonary vasculature are within normal limits. Right PICC with tip in the low SVC approximately 1.5 cm above the cavoatrial junction. Chronic appearing deformity of the left proximal humerus. IMPRESSION: 1. Right PICC with tip in the low SVC. This could be advanced approximately 1.5 cm. 2. Trace left pleural effusion with left basilar atelectasis. Dictated by Winnie Wren MD @ 07/08/2023 11:20:53 PM (Electronic Signature) Discharge Plan Discharge Disposition: [facility] Hospital Discharge Location: [facility] Date of Admission: 07/05/23 17:04 Attending Provider on Discharge: Mirela Eller Primary Care Provider: Neelima Shukla Condition: Improved Discharge Orders: Transfer of Care to Other Hospital (ORDER); Ordered 07/09/23 Ordered By: Mirela Eller Oxygen: No Urinary Catheter: Yes Drips/Lines: levophed 0.05mcg/kg/min Services not available here: ICU
[2023-07-09] MEDS: NYSTATIN CREAM 30 GM 1 APPLIC TOPICAL ×2 (10:22→14:19)
[2023-07-09] MEDS: CIPROFLOXACIN 250 MG TABLET PO (11:08)
[2023-07-09 11:09] LABS: Creatinine Urine 121.4 mg/dL
[2023-07-09 11:13] LABS: Microalbumin Creatinine Ratio 90 mg/g (0-30); Microalbumin Urine 11 mg/dL
[2023-07-09] MEDS: 0.9 % SODIUM CHLORIDE 250 ml IV (13:20)
--- NOTE | 2023-07-09 16:51 | PC.NURSE ---
Patient pleasant and cooperative. Afebrile. Denies pain. Up to chair with 2 assist and EZ stand. Frequent turn and reposition. Chisholm patent. Reddened/rash to groin and buttock, cleansed and cream applied as ordered. Dressings to bilateral lower extremities changed. BP 86/52, MD updated. Norepinephrine drip started at 1000 and verified by Emili BARKLEY. Drip titrated down per MD at 1030, see eMAR. SBP greater than 90 and MAP greater than 65, see frequent vital signs. Tele showing sinus tach with heart rate 90-110. Patient transferred to [place] at 1435 with all personal belongings by [facility]. Nurse to nurse repost given to FILIPPO Dalal.
--- NOTE | 2023-07-11 11:56 | PC.SOCIAL ---
Pt transferred over the weekend to [facility] due to needing a higher level of care. Provided an update on transfer to the following case workers that work with pt in the community. 1. [facility] Horse And Wagon Driver Brenna- Phone call to Brenna at [phone]. Provided update. 2. [facility] Waiver worker Promise- Phone call to Promise at [phone]. Provided update. Promise informs that pt was accepted to an assisted living in [place] and she will follow up with pt at [facility]. 3. [facility] APS SW, Digna Mciknley- Phone call to Digna at [phone]. Left voicemail providing update. Social work will follow up as needed.
== END 2023-07-09 14:35 | disposition short-term general hospital (02) | DRG 70 ==
LOC: ED 16:33 → MEDSURG 16:37
PROVIDERS: Family Medicine; Admitting Provider Physician Assistant; Emergency Provider Emergency Medicine; PCP Family Medicine; Visit Provider Family Medicine
DX: G93.41 Metabolic encephalopathy (principal); R57.8 Other shock; I69.354 Hemiplegia and hemiparesis following cerebral infarction affecting left non-dominant side; N39.0 Urinary tract infection, site not specified; J81.1 Chronic pulmonary edema; J98.11 Atelectasis; N04.9 Nephrotic syndrome with unspecified morphologic changes; F10.229 Alcohol dependence with intoxication, unspecified; Y90.4 Blood alcohol level of 80-99 mg/100 ml; Z99.3 Dependence on wheelchair; I95.89 Other hypotension; L89.151 Pressure ulcer of sacral region, stage 1; L89.891 Pressure ulcer of other site, stage 1; R60.1 Generalized edema; K70.0 Alcoholic fatty liver; R31.9 Hematuria, unspecified; L30.8 Other specified dermatitis; F41.9 Anxiety disorder, unspecified; I65.22 Occlusion and stenosis of left carotid artery; I72.0 Aneurysm of carotid artery; K21.9 Gastro-esophageal reflux disease without esophagitis; R62.7 Adult failure to thrive
CPT/HCPCS: 36415; 36430; 36573; 51701; 51798; 71045; 71275; 74177; 80048; 80053; 80076; 80306; 81001; 82043; 82077; 82140; 82270; 82330; 82550; 82570; 82607; 82728; 82803; 82977; 83540; 83550; 83605; 83735; 83880; 84145; 84443; 84484; 85018; 85025; 85027; 85379; 85610; 85730; 86140; 86850; 86900; 86901; 86922; 87040; 87086; 87186; 93005; 93306; 94640; 94761; 97110; 97162; 97165; 97530; 97535; 99284; 99285; A4221; A9153; A9270; C1751; C9113; J0613; J0696; J0744; J1650; J1940; J2060; J3411; J7030; J7050; P9016; P9047; Q9967

== ENCOUNTER 2023-07-09 14:19 | Outpatient (CLI) | payer MEDICARE, MEDICAID, SELFPAY ==
--- OUTSIDE RECORDS SUMMARY | 2023-07-14 06:17 | XMS_ITS | Clinical Summary ---
Author Name Unknown Organization [facility] Address [place], [place] [address] Care Team Providers Care Inspector [employer] Name Role Phone Neelima Shukla DO Primary Care Provider Allergies Active Allergy Reactions Criticality Noted Date Comments Propoxyphene Seizures High 04/01/2006 Medications Medication Sig Dispensed Refills Start Date End Date Status multivitamin (Multi-Vitamin) tabletIndications: Therapeutic Take 1 Tablet by mouth once daily. 0 2 Suspended Additional Information acetaminophen (TYLENOL EXTRA STRGTH) 500 mg tabletIndications: Migraine without status migrainosus, not intractable, unspecified migraine type,Chronic pain syndrome Take 2 Tablets (1,000 mg) by mouth every 6 hours if needed for Pain or Headache. 0 2 Suspended Additional Information aspirin chewable 81 mg chewable tabletIndications: Therapeutic Chew 1 Tablet (81 mg) by mouth once daily with a meal. 0 2 Suspended Additional Information calcium carbonate (TUMS) 200 mg calcium (500 mg) chewable tabletIndications: Therapeutic Chew 1 Tablet (500 mg) by mouth 4 times daily if needed for Heartburn. 0 2 Suspended Additional Information nicotine 4 mg lozengeIndications :Cigarette nicotine dependence without complication Place 1 Lozenge (4 mg) in mouth, between cheek & gum every hour while awake as needed for Nicotine Craving. Max 20 doses/day. 0 2 Suspended Additional Information wheelchairIndicati ons:Neuropathy,Lef t-sided weakness Motorized Wheelchair. Length of need: 99 months. [facility] 1 Each 3 Suspended Additional Information omeprazole (PRILOSEC) 20 mg Delayed-Release capsuleIndications :Gastroesophageal reflux disease, unspecified whether esophagitis present TAKE ONE CAPSULE BY MOUTH EVERY DAY IN THE MORNING. 90 Capsule 3 3 Suspended Additional Information metoprolol tartrate (LOPRESSOR) 50 mg tabletIndications: Tachycardia Take 1 Tablet (50 mg) by mouth two times daily. 180 Tablet 3 3 06/30/19 24 Discontinued folic acid 1 mg tabletIndications: Therapeutic,Alcoho l abuse Take 1 Tablet (1 mg) by mouth once daily. 90 Tablet 2 3 Suspended Additional Information phenytoin extended (DILANTIN) 100 mg ER capsuleIndications :History of seizures take 1 capsule by mouth every morning, 1 capsule every afternoon, and 2 capsules at bedtime. appointment required for refills. 120 Capsule 1 3 07/01/19 24 Discontinued rOPINIRole (REQUIP) 0.5 mg tabletIndications: Restless legs syndrome Take 3 Tablets (1.5 mg) by mouth at bedtime. 270 Tablet 3 Suspended Additional Information SUMAtriptan (IMITREX) 100 mg tabletIndications: Migraine without status migrainosus, not intractable, unspecified migraine type TAKE 1 TABLET BY MOUTH 2 TIMES DAILY IF NEEDED FOR MIGRAINE. GIVE AT MINIMUM 2 HOURS APART. MAX DOSE: 200MG PER 24 HOURS 9 Tablet 5 3 Suspended Additional Information cyanocobalamin (VITAMIN B12) 1,000 mcg tabletIndications: Vitamin B12 deficiency TAKE 1 TABLET BY MOUTH DAILY 100 Tablet 2 3 Suspended Additional Information rotigotine 2 mg/24 hr (Neupro) 2 mg/24 hour patchIndications:R estless legs syndrome Apply 1 Patch on dry, clean, hairless skin once daily. 30 Patch 11 3 Suspended Additional Information clopidogreL (PLAVIX) 75 mg tabletIndications: Brain aneurysm Take 1 tablet (75mg) by mouth once daily through 07/15/2023, then decrease to taking 1 (75mg) tablet by mouth every other day through 08/14/2023, then stop taking. 90 Tablet 1 3 Suspended Additional Information pregabalin (LYRICA) 300 mg capsuleIndications :Neuropathy TAKE 1 CAPSULE BY MOUTH 2 TIMES DAILY 60 Capsule 3 Suspended Additional Information Patient taking differently: 300 mg Oral BID, TAKE 1 CAPSULE BY MOUTH 2 TIMES DAILY, Informant: Patient's Recall, Other Medical Records, Reported on 07/09/2023 suvorexant (Belsomra) 20 mg tabletIndications: Insomnia, unspecified type TAKE ONE TABLET BY MOUTH AT BEDTIME 90 Tablet 3 Suspended Additional Information Patient taking differently: 20 mg Oral BEDTIME, TAKE ONE TABLET BY MOUTH AT BEDTIME, Informant: Patient's Recall, Reported on 07/09/2023 estradioL (ESTRACE) 0.01% (0.1 mg/g) vaginal creamIndications:U rinary urgency,Atrophic vaginitis Apply 1g vaginally at bedtime for 1 week, then decrease to 0.5g twice weekly at bedtime. 42.5 g 3 3 Suspended Additional Information Patient taking differently: Apply 1g vaginally at bedtime for 1 week, then decrease to 0.5g twice weekly at bedtime NEEDED., Informant: Patient's Recall, Reported on 07/09/2023 medication order composerIndication s:Urinary urgency,Left hemiparesis (HC) Bedtime commode 1 unit 3 Suspended Additional Information docusate (COLACE) 100 mg capsuleIndications :Constipation, acute Take 1 Capsule (100 mg) by mouth 2 times daily if needed for Constipation. 180 Capsule 1 3 Suspended Additional Information citalopram (CELEXA) 40 mg tabletIndications: Generalized anxiety disorder,MDD (major depressive disorder), recurrent, in full remission (HC) Take 1 Tablet (40 mg) by mouth once daily. 90 Tablet 4 Suspended Additional Information mirtazapine (REMERON) 45 mg tabletIndications: Generalized anxiety disorder,MDD (major depressive disorder), recurrent, in full remission (HC) Take 1 Tablet (45 mg) by mouth at bedtime. 30 Tablet 2 4 Suspended Additional Information Vitamin D-3 50 mcg (2,000 unit) capsuleIndications :Vitamin D insufficiency TAKE 1 CAPSULE BY MOUTH DAILY 90 Capsule 3 4 Suspended Additional Information phenytoin extended (DILANTIN) 100 mg ER capsuleIndications :History of seizures Take 1 capsule by mouth every morning, 1 capsule every afternoon, and 2 capsules at bedtime. 120 Capsule 2 4 Suspended Additional Information metoprolol tartrate (LOPRESSOR) 50 mg tabletIndications: Tachycardia TAKE ONE TABLET BY MOUTH DAILY. HOLD IF SBP <90. 30 Tablet 4 Suspended Additional Information Patient taking differently: 50 mgOralBID, Informant: Patient's Recall, Other Medical Records, Reported on 07/09/2023 calcium carbonate (OS-MICHELLE 500) 500 mg calcium (1,250 mg) tablet Take 500 mg by mouth once daily. Suspended ibuprofen (ADVIL; MOTRIN) 200 mg tablet Take 400 mg by mouth 3 times daily if needed. Suspended Active Problems Problem Noted Date Diagnosed Date Septic shock 07/10/2023 Urinary tract infection 07/10/2023 Cerebral aneurysm 01/13/2023 History of bacterial pneumonia [...] of status migrainosus 03/08/2003 Overview: LW Onset: ; Migraine Without Aura Resolved Problems Problem Noted Date Diagnosed Date Resolved Date Pneumonia due to infectious organism 10/20/2021 01/10/2023 Urinary retention 10/20/2021 05/16/2022 Failure to thrive in adult 10/19/2021 0 05/16/2022 Anorexia 10/19/2021 05/16/2022 Mouth ulcer 10/19/2021 05/16/2022 Thrush 10/19/2021 05/16/2022 Alcohol withdrawal 10/19/2021 Hypomagnesemia 10/19/2021 05/16/2022 Hypophosphatemia 10/19/2021 05/16/2022 Starvation [...] 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 05/27/2021 Overview: first siezure age 20 Pneumonia of left lower lobe due to infectious organism 01/10/2023 Sepsis 05/16/2022 Dyspnea 05/16/2022 Encounters Date Type Department Care Team Description 07/09/2023 3:29 PM CDT - Present Hospital Encounter [facility] [address] [place] [address] Carissa Grimaldo MD Masood, Adnan, MBBS Stephenson, Laurel Elizabeth, MD Schmidt, Quentin De La Fuente MD [facility], [facility] Hospitalists Joe Garcia MD 07/08/2023 Orders Only [facility] Scanner 1 scan: (1-Ord) [facility], X-RAY CHEST PORTABLE ONE VIEW, 07/08/2023 07/06/2023 4:00 PM CDT Ancillary Procedure [facility] [address] [place] [address] 07/05/2023 Orders Only [facility] Scanner 1 scan: (1-Ord) [facility], CT ANGIO CHEST , 07/05/2023 07/05/2023 Orders Only [facility] Scanner 1 scan: (1-Ord) [facility], ABDOMEN PELVIS W CONTRAST, 07/05/2023 07/05/2023 Patient Outreach [facility] [address] [place] [address] Neelima Shukla, Focused Care Management (07/05/23; Generalized anxiety disorder, Mixed dyslipidemia, Normocytic anemia /) 06/29/2023 Refill [facility] [id number] [place] [id number] Neelima Shukla DO Refill Request (Metoprolol Tartrate) 06/29/2023 Refill [facility] [address] [place] [address] Klaus Sandoval MD Refill Request (Phenytoin Extended) 06/28/2023 Telephone [facility] [address] [place] [address] Neelima Shukla, Home Care 06/20/2023 Patient Outreach [facility] Care Management - Care Management Navigation/[facility] [address] [place] [address] Marcio Bandar, [place] Population Health (Care Guide Annual Medicare Wellness Visit outreach/) 06/17/2023 Telephone [facility] [address] [place] [address] Neelima Shukla DO Prior Authorization (suvorexant (Belsomra) 20 mg tablet Approved 03/28/2023 - 06/16/2024 [id number]) 05/20/2023 Patient Outreach [facility] Care Management - Advanced Care Team [address] [place] [id number] Garima Nathan Medication Management (R/S NO SHOW CMR) 05/13/2023 Patient Outreach [facility] [address] [place] [address] Dallas Blanco, PharmD Pharmacist Medication Management (Reschedule comprehensive medication review ) 05/02/2023 Travel 04/29/2023 Patient Outreach [facility] Care Management - Advanced Care Team [address] [place] [phone] Garima Nathan Medication Management (CMR PROVIDER REFERRAL - covered) 04/27/2023 Orders Only [facility] [address] [place] [address] Neelima Shukla DO <No scans attached> 04/24/2023 Refill [facility] [address] [place] [address] Neelima Shukla DO Refill Request (Vitamin D-3) 04/22/2023 Orders Only [facility] [address] [place] [address] Neelima Shukla DO <No scans attached> 04/22/2023 Telephone [facility] [address] [place] [address] Neelima Shukla DO Form (PHYSICIAN ORDER) 04/21/2023 2:00 PM METAL CONTROL COORDINATOR Telemedicine [facility] [address] [place], [place] [address] Jeramie Dsouza, Follow Up; Telehealth from Last [...] of Communication with Friends and Fami ly 4 07/09/2023 Financial Resource Strain Answer Date R ecorded Difficulty of Paying Living Expenses 1 07/09/2023 Difficulty of Paying Living Expenses 2 07/09/2023 Food Insecurity Answer Date Recorded Worried About Running Out of Food in the Last Ye ar 1 07/09/2023 Transportation Needs Answer Date Record ed Lack of Transportation (Medical) 2 07/09/2023 Housing Stability Answer Date Recorded Unable to Pay for Housing in the Last Year 1 07/09/2023 Sex and Gender Information Value Date Recorded Sex Assigned at Female 06/11/2022 6:26 AM CDT Gender Identity Female 06/11/2022 6:26 AM CDT Sexual Orientation Straight 06/11/2022 6: 26 AM CDT Obstetrics History Last Filed Vital Signs Vital Sign Reading Time Taken Comments Blood Pressure 107/51 07/14/2023 2:36 AM CDT Pulse 86 07/14/2023 2:36 AM CDT Temperature 36.6 ??C (97.9 ??F) 07/14/2023 12:29 AM C DT Respiratory Rate 18 07/14/2023 12:29 AM CDT Oxygen Saturation 94% 07/14/2023 12:29 AM CDT Inhaled Oxygen Concentration - - Weight 82.2 kg (181 lb 3.5 oz) 07/13/2023 4:00 A M CDT Height 162.6 cm (5' 4.02) 07/12/2023 6:00 AM CD T Body Mass Index 31.09 07/12/2023 6:00 AM CDT Plan of Treatment Upcoming Encounters Date Type Department Care Team (Late st Contact Info) Description 08/04/2023 10:00 AM CDT Appointment [facility] [address] [place] [address] Health Maintenance Due Date Last Done Comments Fecal testing sDNA-FIT ([place] [employer] guard) for age 45-75 2002 Mammogram for age 45-75 2002 DEXA/DXA scan for age 65+ 2022 Tetanus booster 09/19/2022 09/19/2012, 06/0 08/2007, 01/04/[address] (for lung CA) ag e 50-80 10/14/2022 10/14/2021 COVID-19 vaccine series (6 - 2023-24 season) 2022 02/10/2022, 10/28/2021, 02/23/2021, Additional history exists Medicare Wellness for age 65+ 05/14/2023 05/13/2022 Influenza for age 65+ 11/27/2023 02/10/2022 , 02/16/2021, 12/10/2019, Additional history exists BMI (ht and wt on same day) for age 18+ 01/11/2024 01/10/2023, 05/13/2022, 01/20/2022, Additional history exists Depression screening for age 12+ 04/24/2024 04/24/2023, 04/22/2023, 04/22/2023, Additional history exists Lipids for age 45-75 07/08/2028 07/09/2023, 05/13/19 23 Tdap Completed 09/19/2012, 01/04/2006 Zoster (shingles) series for age 50+ Completed 12/10/2019, 12/10/2019, 03/02/2019 Pneumococcal series for age 65+ Completed Hepatitis C screening for ag e 18-79 Completed 05/13/2022 Procedures The patient is currently admitted. The information in this section might not be complete until the patient is discharged. Procedure Name Priority Date/Time Associated Diagnosis Comments POTASSIUM Today 07/13/2023 5:56 PM CDT POTASSIUM Timed 07/13/2023 12:52 PM CDT BASIC METABOLIC PANEL Early AM 07/13/2023 4:10 AM CDT AMMONIA Early AM 07/13/2023 4:10 AM CDT US ABDOMEN LIMITED RUQ PORTABLE Routine 07/12/2023 11:35 AM CDT SCAN-CARDIAC STRIP 07/12/2023 7: 25 AM CDT SCAN-CARDIAC STRIP 07/11/2023 7: 00 PM CDT EXTRA TUBE LAVENDER Today 07/11/2023 5 :40 AM CDT MAGNESIUM Early AM 07/11/2023 5:40 AM CDT CREATININE Early AM 07/11/2023 5:40 AM CDT VANCOMYCIN TROUGH Timed 07/11/2023 5:4 0 AM CDT GLUCOSE METER Timed 07/11/2023 5:39 AM CDT SCAN-CARDIAC STRIP 07/11/2023 12 :49 AM CDT GLUCOSE METER Timed 07/11/2023 12:33 AM CDT GLUCOSE METER Timed 07/10/2023 3:55 PM CDT MRSA/SA PCR Today 07/10/2023 11:26 AM CDT RESPIRATORY PANEL MULTIPLEX PCR Today 07/10/2023 11:25 AM CDT MAGNESIUM Timed 07/10/2023 11:25 AM CDT GLUCOSE METER Timed 07/10/2023 10:29 AM CDT SCAN-CARDIAC STRIP 07/10/2023 7: 32 AM CDT GLUCOSE METER Timed 07/10/2023 4:14 AM CDT LACTATE VENOUS Today 07/10/2023 4:11 AM CDT CBC W PLT NO DIFF Early AM 07/10/2023 4:1 1 AM CDT MAGNESIUM Early AM 07/10/2023 4:11 AM CDT BASIC METABOLIC PANEL Early AM 07/10/2023 4:11 AM CDT PHOSPHORUS Timed 07/10/2023 4:11 AM CDT SCAN-CARDIAC STRIP 07/10/2023 2: 57 AM CDT PHOSPHORUS BERHANE 07/09/2023 6:55 PM CDT MAGNESIUM B[place] 07/09/2023 6:55 PM CDT TROPONIN T (HS) ONE TIME Timed 07/09/2023 6:55 PM CDT LACTATE VENOUS BERHANE 07/09/2023 6:55 PM CDT GLUCOSE METER Timed 07/09/2023 6:50 PM CDT BLOOD CULTURE STAT 07/09/2023 5:32 PM CDT BLOOD CULTURE STAT 07/09/2023 5:24 PM CDT XR CHEST 1 VIEW PORTABLE Routine 07/09/2023 4:47 PM CDT SCAN-CARDIAC STRIP 07/09/2023 4: 45 PM CDT THYROPEROXIDASE ANTIBODY BERHANE 07/09/2023 4:43 PM CDT CORTISOL TOTAL BERHANE 07/09/2023 4:43 PM CDT T3,FREE BERHANE 07/09/2023 4:43 PM CDT T4,FREE B[place] 07/09/2023 4:43 PM CDT LIPID PANEL BERHANE 07/09/2023 4:43 PM CDT CBC WITH AUTO DIFFERENTIAL STAT 07/09/2023 4:43 PM CDT LACTATE VENOUS BERHANE 07/09/2023 4:43 PM CDT TSH Today 07/09/2023 4:43 PM CDT PROCALCITONIN B[place] 07/09/2023 4:43 PM CDT PROTIME-INR STAT 07/09/2023 4:43 PM CDT CBC WITH AUTO DIFFERENTIAL STAT 07/09/2023 4:43 PM CDT BASIC METABOLIC PANEL STAT 07/09/2023 4:43 PM CDT HEPATIC FUNCTION PANEL STAT 4 4:43 PM CDT TROPONIN T (HS) ACUTE W/2HR REFLEX STAT 07/09/2023 4:43 PM CDT GLUCOSE METER Timed 07/09/2023 4:40 PM CDT URINE CULTURE BERHANE 07/09/2023 4:29 PM CDT URINALYSIS MICROSCOPIC Timed 4:29 PM CDT UA W/ SEDIMENT EXAM REFLEXED PER CRITERIA Today 07/09/2023 4:29 PM CDT SCAN-RADIOLOGY REPORT 07/08/2023 12:00 AM CDT ECHO TTE COMPLETE WO CONTRAST Routine 07/06/2023 4:30 PM CDT Tachycardia Hypotension SCAN-CT INTERPRETATION 4 12:00 AM CDT SCAN-CT INTERPRETATION 4 12:00 AM CDT LC HCV ANTIBODY RFX TO QUANT PCR Routine 05/13/2022 3:36 PM METAL CONTROL COORDINATOR Need for hepatitis C screening test CT CHEST ABDOMEN PELVIS W Routine 10/14/2021 1:13 PM CDT from Last 3 Months or Most Recently Relevant to Health Maintenance Results * POTASSIUM (07/13/2023 5:56 PM CDT) Only the most recent of2 resultswithin the time period is included. POTASSIUM 4.1 3.5 - 5.1 mmol/L 07/13/2023 7:03 PM CDT [facility] Blood BLOOD SPECIMEN / Unknown Venipuncture / Unknown 07/13/2023 5:56 PM CDT 07/13/2023 6:08 PM CDT Joe Gupta MD CHEMISTRY Performing Organization Address [facility] Co de Phone Number [facility] [address] [place] [address], * AMMONIA (07/13/2023 4:10 AM CDT) AMMONIA 20 16 - 60 umol/L 07/13/2023 5:06 AM CDT [facility] Blood BLOOD SPECIMEN / Unknown Venipuncture / Unknown 07/13/2023 4:10 AM CDT 07/13/2023 4:37 AM CDT Narrative [facility] - 07/13/2023 5:06 AM CDT 1. ??Sulfasalazine and its metabolite Sulfapyridine at therapeutic concentrations may lead to falsely low results. 2. ??Temozolomide and its metabolite MTIC may lead to falsely elevated results, and its metabolite AIC may lead to falsely low results. Joe Gupta MD CHEMISTRY Performing Organization Address [facility] de Phone Number [facility] [address] [place] [address], * (ABNORMAL) Basic metabolic panel AM (07/13/2023 4:10 AM CDT) Only the most recent of3 resultswithin the time period is included. SODIUM 142 136 - 145 mmol/L 07/13/2023 5:07 AM CDT [facility] POTASSIUM 3.7 3.5 - 5.1 mmol/L 07/13/2023 5:07 AM CDT [facility] CHLORIDE 104 98 - 107 mmol/L 07/13/2023 5:07 AM CDT [facility] CO2,TOTAL 32(H) 22 - 29 mmol/L 07/13/2023 5:07 AM CDT [facility] ANION GAP 6 5 - 18 07/13/2023 5:07 AM CDT [facility] GLUCOSE 90 70 - 99 mg/dL 07/13/2023 5:07 AM CDT [facility] CALCIUM 7.8(L) 8.8 - 10.2 mg/dL 07/13/2023 5:07 AM CDT [facility] BUN 4(L) 8 - 23 mg/dL 07/13/2023 5:07 AM CDT [facility] CREATININE 0.47(L) 0.50 - 0.90 mg/dL 07/13/2023 5:07 AM CDT [facility] BUN/CREAT RATIO 9(L) 10 - 20 5:07 AM CDT [facility] eGFR >90 >90 mL/min/1.7 3m2 07/13/2023 5:07 AM CDT [facility] Comment:As of 2021, eG FR is calculated by the CKD-EPI creatinine equation without race adjustment. ??eGFR can be influenced by muscle mass, exercise, and diet. ??The reported eGFR is an estimation only and is only applicable if the renal function is stable. Blood BLOOD SPECIMEN / Unknown Venipuncture / Unknown 07/13/2023 4:10 AM CDT 07/13/2023 4:33 AM CDT Joe Gupta MD CHEMISTRY [facility] [address] [place] [address], [place] * US ABDOMEN LIMITED RUQ PORTABLE (07/12/2023 11:35 AM CDT) Anatomical Region Laterality Modality Abdomen, LIVER, PANCREAS, GALLBLADDER, SPLEEN Ultrasound 07/12/2023 12:2 9 PM CDT Narrative 07/12/2023 12:29 PM CDT For Patients: ??As a result of the Cures Act, medical imaging exams and procedure reports are released immediately into your electronic medical record. ??You may view this report before your referring provider. ??If you have questions, please contact your health care provider. Indication: Assess liver, evaluate for cirrhosis and ascites Technique: Multiple transverse and longitudinal sonographic grayscale images of the right upper quadrant of the abdomen were obtained, supplemented with color, power, and spectral Doppler imaging. Comparison: 06/08/2022, 10/14/2021 Findings: Pancreas: Not well visualized. Liver length: 19.1 cm. Liver appearance: Moderate to severe hepatic steatosis. No biliary ductal dilation. Portal vein: Patent, hepatopetal flow. CBD: 0.5 cm. Gallbladder: Negative sonographic Roy sign. Contracted. Right kidney length: 10.2 cm. Right kidney appearance: Normal. Impression: 1. Hepatomegaly and moderate to severe hepatic steatosis. 2. No ascites. Dictated by Gurwinder Deng MD @ 07/12/2023 12:29:31 PM (Electronically Signed) Procedure Note Josh Deng MD - 07/12/2023 For Patients: As a result of the Century Cures Act, medical imagingexams and procedure reports are released immediately into your electronicmedical record. You may view this report before your referring provider.If you have questions, please contact your health care provider. Indication: Assess liver, evaluate for cirrhosis and ascites Technique: Multiple transverse and longitudinal sonographic grayscale images of theright upper quadrant of the abdomen were obtained, supplemented withcolor, power, and spectral Doppler imaging. Comparison: 06/08/2022, 10/14/2021 Findings: Pancreas: Not well visualized. Liver length: 19.1 cm. Liver appearance: Moderate to severe hepatic steatosis. No biliary ductaldilation. Portal vein: Patent, hepatopetal flow. CBD: 0.5 cm. Gallbladder: Negative sonographic Roy sign. Contracted. Right kidney length: 10.2 cm. Right kidney appearance: Normal. Impression: 1. Hepatomegaly and moderate to severe hepatic steatosis. 2. No ascites. Dictated by Gurwinder Deng MD @ 07/12/2023 12:29:31 PM (Electronically Signed) Joe Gupta MD US * SCAN-CARDIAC STRIP (07/12/2023 7:25 AM CDT) Scanner OTHER * SCAN-CARDIAC STRIP (07/11/2023 7:00 PM CDT) Scanner OTHER * EXTRA TUBE LAVENDER (07/11/2023 5:40 AM CDT) Blood BLOOD SPECIMEN / Unknown Non-Lab Venipuncture / Unknown 07/11/2023 5:40 AM CDT 07/11/2023 5:56 AM CDT Yareli Waddell MD LABORATOR Y Performing Organization Address [facility] Co de Phone Number [facility] [address] [place] [address], [place] * (ABNORMAL) CREATININE (07/11/2023 5:40 AM CDT) [facility] eGFR >90 >90 mL/min/1.7 3m2 07/11/2023 6:50 AM CDT [facility] Comment:As of 2021, eG FR is calculated by the CKD-EPI creatinine equation without race adjustment. ??eGFR can be influenced by muscle mass, exercise, and diet. ??The reported eGFR is an estimation only and is only applicable if the renal function is stable. CREATININE 0.37(L) 0.50 - 0.90 mg/dL 07/11/2023 6:50 AM CDT [facility] Blood BLOOD SPECIMEN / Unknown Non-Lab Venipuncture / Unknown 07/11/2023 5:40 AM CDT 07/11/2023 5:55 AM CDT Yareli Waddell MD CHEMISTRY Performing Organization Address [facility] Co de Phone Number [facility] [address] [place] [id number], [place] * VANCOMYCIN TROUGH (07/11/2023 5:40 AM CDT) Pathologist [facility] VANCOMYCIN,TRO UGH 15.2 7.0 - 20.0 ug/mL 07/11/2023 6:57 AM CDT [facility] DATE OF LAST DOSE,TROUGH Not given 07/11/2023 6:57 AM CDT [facility] TIME OF LAST DOSE,TROUGH Not given 07/11/2023 6:57 AM CDT [facility] Blood BLOOD SPECIMEN / Unknown Non-Lab Venipuncture / Unknown 07/11/2023 5:40 AM CDT 07/11/2023 5:55 AM CDT Bennie TRACY CHEMISTRY Performing Organization Address [facility]/ZIP Co de Phone Number [facility] [address] [address], [place] * MAGNESIUM (07/11/2023 5:40 AM CDT) Only the most recent of4 resultswithin the time period is included. MAGNESIUM 2.0 1.6 - 2.4 mg/dL 07/11/2023 6:50 AM CDT [facility] Blood BLOOD SPECIMEN / Unknown Non-Lab Venipuncture / Unknown 07/11/2023 5:40 AM CDT 07/11/2023 5:55 AM CDT Yareli Waddell MD CHEMISTRY Performing Organization Address [facility] Co de Phone Number [facility] [address] [place] [address], [place] * GLUCOSE METER (07/11/2023 5:39 AM CDT) Only the most recent of7 resultswithin the time period is included. GLUCOSE METER 98 65 - 100 mg/dL 07/11/2023 5:45 AM CDT [facility] Blood BLOOD SPECIMEN / Unknown 07/11/2023 5:39 AM CDT 07/11/2023 5:45 AM CDT Quentin Lott MD CHEMISTRY Performing Organization Address City/[facility] Co de Phone Number [facility] [address] [address], [place] * SCAN-CARDIAC STRIP (07/11/2023 12:49 AM CDT) Scanner OTHER * MRSA/SA PCR (07/10/2023 11:26 AM CDT) MRSA DNA PCR Negative Negative 07/10/2023 1:45 PM CDT [facility] STAPHYLOCOCCUS AUREUS PCR Negative Negative 07/10/2023 1:45 PM CDT [facility] Other SPECIMEN FROM INTERNAL NOSE / Unknown Non-Blood / Unknown 07/10/2023 11:26 AM CDT 07/10/2023 11:37 AM CDT Narrative [facility] - 07/10/2023 1:45 PM CDT Test result does not preclude MRSA or SA nasal colonization. Yareli Waddell MD MICROBIOL OGY [facility] [address] [place], [place] [id number] [place] [address] * RESPIRATORY PANEL MULTIPLEX PCR (07/10/2023 11:25 AM CDT) Pathologist [facility] Adenovirus NOT Detected 07/10/2023 1:03 PM CDT [facility] Coronavirus 229E NOT Detected 07/10/2023 1:03 PM CDT [facility] Coronavirus HKU1 NOT Detected 07/10/2023 1:03 PM CDT [facility] Coronavirus NL63 NOT Detected 07/10/2023 1:03 PM CDT [facility] Coronavirus OC43 NOT Detected 07/10/2023 1:03 PM CDT [facility] Human Metapneumovirus NOT Detected 07/10/2023 1:03 PM CDT [facility] Human Rhinovirus/Enterovi oz NOT Detected 07/10/2023 1:03 PM CDT [facility] Influenza A NOT Detected 07/10/2023 1:03 PM CDT [facility] Influenza B NOT Detected 07/10/2023 1:03 PM CDT [facility] Parainfluenza Virus 1 NOT Detected 07/10/2023 1:03 PM CDT [facility] Parainfluenza Virus 2 NOT Detected 07/10/2023 1:03 PM CDT [facility] Parainfluenza Virus 3 NOT Detected 07/10/2023 1:03 PM CDT [facility] Parainfluenza Virus 4 NOT Detected 07/10/2023 1:03 PM CDT [facility] Respiratory Syncytial Virus NOT Detected 07/10/2023 1:03 PM CDT [facility] SARS-Cov-2 NOT Detected 07/10/2023 1:03 PM CDT [facility] Bordetella pertussis NOT Detected 07/10/2023 1:03 PM CDT [facility] Bordetella Parapertussis NOT Detected 07/10/2023 1:03 PM CDT [facility] Chlamydophila pneumoniae NOT Detected 07/10/2023 1:03 PM CDT [facility] Mycoplasma pneumoniae NOT Detected 07/10/2023 1:03 PM CDT [facility] Nasopharyngeal NASOPHARYNGEAL SWAB / Unknown Non-Blood / Unknown 07/10/2023 11:25 AM CDT 07/10/2023 11:37 AM CDT [facility] - 07/10/2023 1:03 PM CDT All PCR tests are subject to false negative results due to variability in viral/bacterial load and collection technique. ??This test does NOT detect MERS ( Respiratory Syndrome) or SARS-1 (Severe Acute Respiratory Syndrome). Yareli Waddell MD MICROBIOL OGY [facility] [address] [place] [address], * SCAN-CARDIAC STRIP (07/10/2023 7:32 AM CDT) Scanner OTHER * LACTATE VENOUS (07/10/2023 4:11 AM CDT) Only the most recent of3 resultswithin the time period is included. LACTATE,VENOUS 1.3 0.5 - 2.0 mmol/L 07/10/2023 4:51 AM CDT [facility] Blood BLOOD SPECIMEN / Unknown Non-Lab Venipuncture / Unknown 07/10/2023 4:11 AM CDT 07/10/2023 4:22 AM CDT Bennie Watters [facility] [address] [place] [address], * (ABNORMAL) CBC (07/10/2023 4:11 AM CDT) WHITE BLOOD COUNT 7.0 4.5 - 11.0 thou/cu mm 07/10/2023 4:26 AM CDT [facility] RED BLOOD COUNT 2.96(L) 4.00 - 5.20 mil/cu mm 07/10/2023 4:26 AM CDT [facility]ORY HEMOGLOBIN 8.7(L) 12.0 - 16.0 g/dL 07/10/2023 4:26 AM T [facility]AL LAB[facility]ORY HEMATOCRIT 28.1(L) 33.0 - 51.0 % 07/10/2023 4:26 AM CDT [facility] MCV 95 80 - 100 fL 07/10/2023 4:26 AM CDT [facility] MCH 29.4 26.0 - 34.0 pg 07/10/2023 4:26 AM CDT [facility] MCHC 31.0(L) 32.0 - 36.0 g/dL 07/10/2023 4:26 AM T [facility] RDW 22.4(H) 11.5 - 15.5 % 07/10/2023 4:26 AM CDT [facility] PLATELET COUNT 257 140 - 440 thou/cu mm 07/10/2023 4:26 AM CDT [facility] MPV 10.2 6.5 - 11.0 fL 07/10/2023 4:26 AM CDT [facility] NRBC 0.0 % 07/10/2023 4:26 AM CDT [facility] ABS NRBC 0.0 thou /cu mm 07/10/2023 4:26 AM CDT [facility] Blood BLOOD SPECIMEN / Unknown Non-Lab Venipuncture / Unknown 07/10/2023 4:11 AM CDT 07/10/2023 4:22 AM CDT Bennie VIDAL HEMATOLOGY Performing Organization Address City/[facility]/ZIP Co de Phone Number [facility] [address] [place] [address], * PHOSPHORUS (07/10/2023 4:11 AM CDT) Only the most recent of2 resultswithin the time period is included. Pathologist [facility] PHOSPHORUS 3.3 2.5 - 4.5 mg/dL 07/10/2023 4:56 AM CDT [facility] Blood BLOOD SPECIMEN / Unknown Non-Lab Venipuncture / Unknown 07/10/2023 4:11 AM CDT 07/10/2023 4:22 AM CDT Bennie VIDAL CHEMISTRY Performing Organization Address City/[facility]/ZIP Co de Phone Number [facility] [address] [place] [address], * SCAN-CARDIAC STRIP (07/10/2023 2:57 AM CDT) Scanner OTHER * (ABNORMAL) TROPONIN T (HS) ONE TIME (07/09/2023 6:55 PM CDT) TROPONIN T HS 71(H) 6-10 ng/L ng/L 07/09/2023 7:50 PM CDT [facility] Blood BLOOD SPECIMEN / Unknown Non-Lab Venipuncture / Unknown 07/09/2023 6:55 PM CDT 07/09/2023 7:10 PM CDT Carissa Grimaldo MD CHEMISTRY Performing Organization Address [facility] Co de Phone Number [facility] [address] [place] [address], * Blood Culture (07/09/2023 5:32 PM CDT) Only the most recent of2 resultswithin the time period is included. CULTURE No Growth. 07/13/2023 10:49 PM CDT [facility] Blood BLOOD SPECIMEN / Unknown Butterfly / Unknown 07/09/2023 5:32 PM CDT 07/09/2023 5:38 PM CDT Carissa Grimaldo MD MICROBIOL OGY Performing Organization Address [facility] de Phone Number [facility] [address] [place] [address], * XR CHEST 1 VIEW PORTABLE (07/09/2023 4:47 PM CDT) Anatomical Region Laterality Modality HEART, THORAX, CHEST Digital Rad iography 07/09/2023 4:50 PM CDT Impressions 07/09/2023 4:50 PM CDT 1. ??Right-sided PICC line catheter tip terminates within the lower most SVC. 2. ??Mild left basilar atelectasis, possibly with a small amount of left pleural fluid. 3. ??Platelike atelectasis within the right perihilar region. Dictated by Raghav Farrell MD @ Jul 09 2023 ??4:50PM (Electronically Signed) [email or web address] Narrative 07/09/2023 4:50 PM CDT For Patients: ??As a result of the Century Cures Act, medical imaging exams and procedure reports are released immediately into your electronic medical record. ??You may view this report before your referring provider. ??If you have questions, please contact your health care provider. HISTORY: PICC line catheter. TECHNIQUE: One view of the chest. COMPARISON: 10/18/2021. FINDINGS: Right-sided PICC line catheter tip terminates within the lower most SVC. Low lung volumes. Mild left basilar atelectasis, possibly with a trace amount of pleural fluid. There is some platelike atelectasis within the right lateral perihilar region. No pneumothorax. Cardiac size within normal limits. Prior cervical fusion. Procedure Note Raghav Farrell MD - 07/09/2023 For Patients: As a result of the Cures Act, medical imagingexams and procedure reports are released immediately into your electronicmedical record. You may view this report before your referring provider.If you have questions, please contact your health care provider. HISTORY: PICC line catheter. TECHNIQUE: One view of the chest. COMPARISON: 10/18/2021. FINDINGS: Right-sided PICC line catheter tip terminates within the lower most SVC.Low lung volumes. Mild left basilar atelectasis, possibly with a traceamount of pleural fluid. There is some platelike atelectasis within theright lateral perihilar region. No pneumothorax. Cardiac size withinnormal limits. Prior cervical fusion. IMPRESSION: 1. Right-sided PICC line catheter tip terminates within the lower mostSVC. 2. Mild left basilar atelectasis, possibly with a small amount of leftpleural fluid. 3. Platelike atelectasis within the right perihilar region. Dictated by Raghav Farrell MD @ Jul 09 2023 4:50PM (Electronically Signed) [email or web address] Bennie TRACY [facility] IM[facility] * SCAN-CARDIAC STRIP (07/09/2023 4:45 PM CDT) Scanner OTHER * (ABNORMAL) TROPONIN T(HS) ACUTE W/2HR REFLEX (07/09/2023 4:43 PM CDT) TROPONIN T HS 86(H) 6-10 ng/L ng/L 07/09/2023 5:34 PM CDT [facility] Blood BLOOD SPECIMEN / Unknown Non-Lab Venipuncture / Unknown 07/09/2023 4:43 PM CDT 07/09/2023 4:54 PM CDT Narrative [facility] - 07/09/2023 5:34 PM CDT hs-cTnT (Elecsys Troponin T Gen 5) concentration (s) above the sex-specific 99th percentile (16 ng/L or greater for males or 11 ng/L or greater for females) are indicative of myocardial injury. If initial hs-cTnT <=100 ng/L at presentation, a 0h/2h ABSOLUTE (ng/L) delta change (rising or falling) of >=10 ng/L suggests a significant change, whereas a 0h/2h delta change <=3 ng/L suggests no significant change. If initial hs-cTnT >100 ng/L at presentation, a 0h/2h/ RELATIVE (percent, %) delta change of 20% is suggested to distinguish patients with acute vs. chronic myocardial injury. There are multiple etiologies that can cause hs-cTnT increases above the 99th percentile (myocardial injury) other than acute myocardial infarction. Clinical context and careful clinical evaluation are critical for diagnosis and risk-stratification. The diagnosis of acute myocardial infarction requires a rising and/or falling pattern in hs-cTnT concentrations with at least one value above the sex-specific 99th percentile PLUS at least one of the following clinical criteria: ischemic symptoms, new or presumed new significant ST-T wave changes or new LBBB, development of pathological Q waves, imaging evidence of new loss of viable myocardium or new regional wall motion abnormality, or identification of intracoronary atherothrombosis or an acute angiographic culprit on coronary angiography. In appropriate low-risk patients with a non-ischemic electrocardiogram without active chest pain with a symptom onset >3-hours without recurrence, a single initial hs-cTnT<6 ng/L identifies patient with a very low risk in emergency department patient population. Carissa Grimaldo MD CHEMISTRY [facility] [address] [place] [address], * CORTISOL TOTAL (07/09/2023 4:43 PM CDT) Pathologist [facility] CORTISOL,TOTAL 7.6 ug/dL 07/09/2023 8:01 PM CDT [facility] Blood BLOOD SPECIMEN / Unknown Non-Lab Venipuncture / Unknown 07/09/2023 4:43 PM CDT 07/09/2023 4:54 PM CDT Narrative [facility] - 07/09/2023 8:01 PM CDT Cortisol ?Morning Hours ?6:00 ??AM - 10:00 AM ?(4.8-19.5 ug/dL) Cortisol ?Afternoon Hours ??4:00 ??PM - ??8:00 PM ?(2.5-11.9 ug/dL) ? Biotin supplements may cause clinically significant interference for this test assay. ??If interference is suspected, it is strongly recommended that biotin is discontinued for at least one week prior to retesting. Bennie VIDAL CHEMISTRY [facility] [address] [place] [address], * (ABNORMAL) CBC WITH AUTO DIFFERENTIAL (07/09/2023 4:43 PM CDT) WHITE BLOOD COUNT 8.5 4.5 - 11.0 thou/cu mm 07/09/2023 5:04 PM CDT [facility] RED BLOOD COUNT 3.07(L) 4.00 - 5.20 mil/cu mm 07/09/2023 5:04 PM CDT [facility] HEMOGLOBIN 8.9(L) 12.0 - 16.0 g/dL 07/09/2023 5:04 PM CDT [facility] HEMATOCRIT 29.0(L) 33.0 - 51.0 % 07/09/2023 5:04 PM CDT [facility] MCV 95 80 - 100 fL 07/09/2023 5:04 PM CDT [facility] MCH 29.0 26.0 - 34.0 pg 07/09/2023 5:04 PM CDT [facility] MCHC 30.7(L) 32.0 - 36.0 g/dL 07/09/2023 5:04 PM CDT [facility] RDW 22.3(H) 11.5 - 15.5 % 07/09/2023 5:04 PM CDT [facility] PLATELET COUNT 311 140 - 440 thou/cu mm 07/09/2023 5:04 PM CDT [facility] MPV 10.2 6.5 - 11.0 fL 07/09/2023 5:04 PM CDT [facility] NRBC 0.0 % 07/09/2023 5:04 PM CDT [facility] ABS NRBC 0.0 thou /cu mm 07/09/2023 5:04 PM CDT [facility] % NEUT 66.4 % 07/09/2023 5:04 PM CDT [facility] % LYMPH 19.1 % 07/09/2023 5:04 PM CDT [facility] % MONO 9.6 % 07/09/2023 5:04 PM CDT [facility] % EOS 4.1 % 07/09/2023 5:04 PM CDT [facility] % BASO 0.6 % 07/09/2023 5:04 PM CDT [facility] % IMMATURE GRAN (METAS,MYELOS,WY OS) 0.2 % 07/09/2023 5:04 PM CDT [facility] ABSOLUTE NEUTROPHILS 5.6 1.7 - 7.0 thou/cu mm 07/09/2023 5:04 PM CDT [facility] ABSOLUTE LYMPHOCYTES 1.6 0.9 - 2.9 thou/cu mm 07/09/2023 5:04 PM CDT [facility] ABSOLUTE MONOCYTES 0.8 <0.9 thou/cu mm 07/09/2023 5:04 PM CDT [facility] ABSOLUTE EOSINOPHILS 0.4 <0.5 thou/cu mm 07/09/2023 5:04 PM CDT [facility] ABSOLUTE BASOPHILS 0.1 <0.3 thou/cu mm 07/09/2023 5:04 PM CDT [facility] ABSOLUTE IMMATURE GRANULOCYTES(MET ,MYELOS,PROS) 0.0 <0.3 thou/cu mm 07/09/2023 5:04 PM CDT [facility] Blood BLOOD SPECIMEN / Unknown Non-Lab Venipuncture / Unknown 07/09/2023 4:43 PM CDT 07/09/2023 4:54 PM CDT Bennie Watters [facility] [address] [place] [address], * PROCALCITONIN (07/09/2023 4:43 PM CDT) PROCALCITONIN 0.36 ng/ml 07/09/2023 5:46 PM CDT [facility] Blood BLOOD SPECIMEN / Unknown Non-Lab Venipuncture / Unknown 07/09/2023 4:43 PM CDT 07/09/2023 4:54 PM CDT Narrative [facility] - 07/09/2023 5:46 PM CDT Procalcitonin for initial assessment of Lower Respiratory Tract Infection: Results Interpretation <0.10 ng/mL Antibiotic therapy strongly discoraged. ??Indicates absent of bacterial infection. * 0.10 - 0.25 ng/mL Antibiotic therapy discouraged. ??Bacterial infection unlikely. * 0.26 - 0.50 ng/mL Antibiotic therapy encouraged. ??Bacterial infection possible. >0.50 ng/mL Antibiotic therapy strongly encouraged. ??Suggestive of presence of bacterial infection. *Antibiotic therapy should be considered regardless of PCT result if the patient is clinically unstable, is at high risk for adverse outcome, has strong evidence of bacterial pathogen, or the clinical context indicates antibiotic therapy is warranted. ??If antibiotics are withheld, reassess if symptoms persist/worsen and/or repeat PCT measurement within 6-24 hours. ? In order to assess treatment success and to support a decision to discontinue antibiotic therapy, follow up samples should be tested once every 1-2 days, based upon physician discretion taking into account patient's evolution and progress. Procalcitonin for initial assessment of severe sepsis risk: Results Interpretation <0.5 ng/ml A PCT level below 0.5 ng/ml on the first day of ICU admission is associated with a low risk for progression to severe sepsis and/or septic shock. > 2.0 ng/mL A PCT level above 2.0 ng/mL on the first day of ICU admission is associated with a high risk for progression to severe sepsis and/or septic shock. Note: Concentrations < 0.5 ng/mL do not exclude an infection, on account of localized infections (without systemic signs) which can be associated with such low concentrations, or a systemic infection in its initial stages(< 6 hours). Furthermore, increased procalcitonin can occur without infection. PCT concentrations between 0.5 and 2.0 ng/mL should be interpreted taking into account the patient's history. It is recommended to retest PCT within 6-24 hours if any concentrations < 2 ng/mL are obtained. Bennie TRACY SEND OUTS [facility] [address] [place] [address], * (ABNORMAL) TSH (07/09/2023 4:43 PM CDT) TSH 5.27(H) 0.27 - 4.20 uIU/mL 07/09/2023 5:34 PM CDT [facility] Blood BLOOD SPECIMEN / Unknown Non-Lab Venipuncture / Unknown 07/09/2023 4:43 PM CDT 07/09/2023 4:54 PM CDT [facility] - 07/09/2023 5:34 PM CDT In Adults, TSH values between 5.00 and 10.00 uIU/ml do not necessarily indicate the presence of Hypothyroidism. Correlation with clinical findings such as presence of goiter and/or Thyroperoxidase (TPO) Antibody may be helpful. For more information please refer to MARIA ELENA 2004; 291: [phone]. Bennie TRACY CHEMISTRY Performing Organization Address [facility] Co de Phone Number [facility] [address] [address], * THYROPEROXIDASE ANTIBODY (07/09/2023 4:43 PM CDT) THYROPEROXIDASE SHARLA <9.00 <34.00 IU/mL 07/09/2023 7:42 PM CDT [facility] Blood BLOOD SPECIMEN / Unknown Non-Lab Venipuncture / Unknown 07/09/2023 4:43 PM CDT 07/09/2023 4:54 PM CDT [facility] - 07/09/2023 7:42 PM CDT Biotin supplements may cause clinically significant interference for this test assay. ??If interference is suspected, it is strongly recommended that biotin is discontinued for at least one week prior to retesting. Bennie VIDAL SEND OUTS Performing Organization Address [facility] Co de Phone Number [facility] [address] [place] [address], * (ABNORMAL) Protime - INR (07/09/2023 4:43 PM CDT) INR 1.3(H) <1.3 07/09/2023 5:07 PM CDT [facility] PROTIME 14.8(H) 10.3 - 12.3 sec 07/09/2023 5:07 PM CDT [facility] Blood BLOOD SPECIMEN / Unknown Non-Lab Venipuncture / Unknown 07/09/2023 4:43 PM CDT 07/09/2023 4:54 PM CDT Narrative [facility] - 07/09/2023 5:07 PM CDT ?Therapeutic Range 2.0-3.0 for most anticoagulated patients 2.5-3.5 or 4.0 for high risk patients The INR is only used for patients on stable oral anticoagulant therapy. It makes no significant contribution to the diagnosis or treatment of patients whose Protime is prolonged for other reasons. INR results are increased when heparin levels exceed 1.0 U/mL, which corresponds to an aPTT >125 seconds if the patient is on UFH. Bennie TRACY HEMATOLOGY Performing Organization Address [facility] de Phone Number [facility] [address] [place] [address], * T3,FREE (07/09/2023 4:43 PM CDT) T3,FREE 2.07 2.00 - 4.40 pg/mL 07/09/2023 7:40 PM CDT [facility] Blood BLOOD SPECIMEN / Unknown Non-Lab Venipuncture / Unknown 07/09/2023 4:43 PM CDT 07/09/2023 4:54 PM CDT Bennie TRACY CHEMISTRY Performing Organization Address [facility] de Phone Number [facility] [address] [place] [address], * (ABNORMAL) T4,FREE (07/09/2023 4:43 PM CDT) T4,FREE 0.67(L) 0.93 - 1.70 ng/dL 07/09/2023 7:40 PM CDT [facility] Blood BLOOD SPECIMEN / Unknown Non-Lab Venipuncture / Unknown 07/09/2023 4:43 PM CDT 07/09/2023 4:54 PM CDT Bennie TRACY CHEMISTRY Performing Organization Address [facility] Phone Number [facility] [address] [place] [phone], * (ABNORMAL) Hepatic Function Panel (07/09/2023 4:43 PM CDT) ALBUMIN 2.6(L) 4.0 - 4.9 g/dL 07/09/2023 5:34 PM CDT [facility] PROTEIN,TOTAL 4.8(L) 6.0 - 8.0 g/dL 07/09/2023 5:34 PM CDT [facility] BILIRUBIN,TOTAL 0.4 0.0 - 1.2 mg/dL 07/09/2023 5:34 PM CDT [facility] BILIRUBIN,DIRECT 0.2 0.0 - 0.3 mg/dL 07/09/2023 5:34 PM CDT [facility] BILIRUBIN,INDIRE CT 0.2 0.2 - 0.8 mg/dL 07/09/2023 5:34 PM CDT [facility] ALK PHOSPHATASE 157(H) 35 - 104 IU/L 07/09/2023 5:34 PM CDT [facility] ALT (SGPT) 14 10 - 35 IU/L 07/09/2023 5:34 PM CDT [facility] AST (SGOT) 61(H) 10 - 35 IU/L 07/09/2023 5:34 PM CDT [facility] Blood BLOOD SPECIMEN / Unknown Non-Lab Venipuncture / Unknown 07/09/2023 4:43 PM CDT 07/09/2023 4:54 PM CDT Carissa Grimaldo MD CHEMISTRY [facility] [address] [place] [id number], * (ABNORMAL) LIPID PANEL (07/09/2023 4:43 PM CDT) CHOLESTEROL,TOTAL 147 100 - 199 mg/dL 07/09/2023 7:43 PM CDT [facility] Comment: Cholesterol, Total Reference Ranges Desirable <200 mg/dL Borderline 200-239 mg/dL High >=240 mg/dL TRIGLYCERIDES 139 <150 mg/dL 07/09/2023 7:43 PM CDT [facility] HDL CHOLESTEROL 17(L) >40 mg/dL 7:43 PM CDT [facility] NON-HDL CHOLESTEROL 130 <145 mg/dl 07/09/2023 7:43 PM CDT [facility] CHOL/HDL RATIO 8.65(H) <4.50 07/09/2023 7:43 PM CDT [facility] LDL CHOLESTEROL 102 <=130 mg/dL 07/09/2023 7:43 PM CDT [facility] [facility] VLDL CHOLESTEROL 28 <=30 mg/dL 07/09/2023 7:43 PM CDT [facility] Blood BLOOD SPECIMEN / Unknown Non-Lab Venipuncture / Unknown 07/09/2023 4:43 PM CDT 07/09/2023 4:54 PM CDT Bennie TRACY CHEMISTRY [facility] [address] [place] [address], * (ABNORMAL) URINALYSIS MICROSCOPIC (07/09/2023 4:29 PM CDT) RBC 6-10(A) 0-2, None Seen /HPF 07/09/2023 5:28 PM CDT [facility] WBC 11-25(A) 0-2, 3-5, None Seen /HPF 07/09/2023 5:28 PM CDT [facility] BACTERIA None Seen None Seen, Rare, Few Bacteria/ HPF 07/09/2023 5:28 PM CDT [facility] EPITHELIAL CELLS Few None Seen, Few Epi/HPF 07/09/2023 5:28 PM CDT [facility] HYALINE CASTS 0-2 0-2, 3-5 /LPF 07/09/2023 5:28 PM CDT [facility] Urine URINE SPECIMEN / Unknown Non-Blood / Unknown 07/09/2023 4:29 PM CDT 07/09/2023 4:49 PM CDT Bennie TRACY URINE Performing Organization Address City/[facility]/ZIP Co de Phone Number [facility] [address] [place] [address], [place] * Urine culture - clean catch ADD ON (07/09/2023 4:29 PM CDT) CULTURE No growth (<1,000 CFU/mL) 07/11/2023 11:10 AM CDT [facility] Urine URINE SPECIMEN / Unknown Non-Blood / Unknown 07/09/2023 4:29 PM CDT 07/09/2023 4:49 PM CDT Quentin Lott MD MICROBIOLOGY Performing Organization Address City/[facility]/ZIP Co de Phone Number [facility] [address] [place] [address], * (ABNORMAL) UA W/ SEDIMENT EXAM REFLEXED PER CRITERIA (07/09/2023 4:29 PM CDT) COLOR Yellow Yellow Color 07/09/2023 5:28 PM CDT [facility] CLARITY Clear Clear Clarity 07/09/2023 5:28 PM CDT [facility] SPECIFIC GRAVITY,URINE 1.015 1.010, 1.015, 1.020, 1.025 07/09/2023 5:28 PM CDT [facility] PH,URINE 7.0 6.0, 7.0, 8.0, 5.5, 6.5, 7.5, 8.5 07/09/2023 5:28 PM CDT [facility] UROBILINOGEN, QUALITATIVE Normal Normal EU/dl 07/09/2023 5:28 PM CDT [facility] PROTEIN, URINE Negative Negative mg/dL 07/09/2023 5:28 PM CDT [facility] GLUCOSE, URINE Negative Negative mg/dL 07/09/2023 5:28 PM CDT [facility] KETONES,URINE Negative Negative mg/dL 07/09/2023 5:28 PM CDT [facility] BILIRUBIN,URI NE Negative Negative 07/09/2023 5:28 PM CDT [facility] OCCULT BLOOD,URINE Trace(A) Negative 07/09/2023 5:28 PM CDT [facility] NITRITE Negative Negative 07/09/2023 5:28 PM CDT [facility] LEUKOCYTE ESTERASE Small(A) Negative 07/09/2023 5:28 PM CDT [facility] Urine URINE SPECIMEN / Unknown Non-Blood / Unknown 07/09/2023 4:29 PM CDT 07/09/2023 4:49 PM CDT Bennie TRACY URINE [facility] [address] [place] [id number], * SCAN-RADIOLOGY REPORT (07/08/2023 12:00 AM CDT) Anatomical Region Laterality Modality Other Scanner OTHER * ECHO TTE COMPLETE WO CONTRAST (07/06/2023 4:30 PM CDT) AORTIC VALVE MEAN PG 7 mmHg EJECTION FRACTION 77 % PEAK TR VELOCITY 2.3 m/s LVEDD 4.0 cm Anatomical Region Laterality Modality Ultrasound 07/06/2023 3:59 PM CDT Narrative 07/06/2023 5:12 PM CDT ECHOCARDIOGRAM LEO MUELLER ? Accession#: ?? [id number] : ?1955 68 years Study Date: ?? 07/06/2023 3:59:59 PM Gender: F ?BP: ? 91/52 mmHg Height: 160.00 cm ?BSA: ?1.92 m? ? ? Weight: 89.00 kg ? Tech: ? MCK ? Referring MD: ALEXA VEGA Site: ? [facility] Reading Location: [facility] Patient Location: Outpatient. Procedure: 2D, Color Doppler [...] . This study was interpreted by an [facility] accredited facility. CC: HIM (med records) [facility], Med/Surg - IP [facility]. ??Final ?? Procedure Note Kyler Camops MD - 07/06/2023 ECHOCARDIOGRAM LEO MUELLER : 1955 68 years Study Date: 07/06/2023 3:59:59 PM Gender: F BP: 91/52 mmHg Height: 160.00 cm BSA: 1.92 m? ? ? Weight: 89.00 kg Tech: [facility] Referring MD: ALEXA VEGA Site: [facility] Reading Location: [facility] Patient Location: Outpatient. Procedure: 2D, Color Doppler [...] . This study was interpreted by an [facility] accredited facility. CC: HIM (med records) [facility], Med/Surg - IP [facility]. Final Alexa Vega MD ECHO ORD * SCAN-CT INTERPRETATION (07/05/2023 12:00 AM CDT) Only the most recent of2 resultswithin the time period is included. Anatomical Region Laterality Modality Other Scanner OTHER * LC HCV ANTIBODY RFX TO QUANT PCR (05/13/2022 3:36 PM METAL CONTROL COORDINATOR) HCV Ab Non Reactive Non Reactive 05/15/2022 10:06 PM METAL CONTROL COORDINATOR [facility] Blood BLOOD SPECIMEN / Unknown Venipuncture / Unknown 05/13/2022 3:36 PM METAL CONTROL COORDINATOR 05/13/2022 3:36 PM METAL CONTROL COORDINATOR Narrative FOR ESOTERIC TESTING (CET) - 05/15/2022 10:06 PM METAL CONTROL COORDINATOR Performed at: ??01 - [address] ??[id number] [place] Gauger: Ramses Stanford MD, Phone: ??[phone] Neelima Shukla DO [facility] ([facility] [address] [place] [address], * CT CHEST ABDOMEN PELVIS W (10/14/2021 1:13 PM CDT) Anatomical Region Laterality Modality Abdomen, Pelvis, AORTA, LIVER, SPLEEN, CHEST Computed Tomography 10/14/2021 1:13 PM CDT Impressions 10/14/2021 2:07 PM CDT Hepatic steatosis. Chest, abdomen and pelvis otherwise unremarkable. Specifically, no abnormal masses or adenopathy identified. Narrative 10/14/2021 2:07 PM CDT For Patients: As a result of the Century Cures Act, medical imaging exams and procedure reports are released immediately into your electronic medical record. You may view this report before your referring provider. If you have questions, please contact your health care provider. EXAM: CT CHEST ABDOMEN PELVIS W LOCATION: [facility] DATE/TIME: 10/14/2021 1:13 PM INDICATION: [...] EXAM: CT CHEST ABDOMEN PELVIS W LOCATION: [facility] MED[facility] DATE/TIME: 10/14/2021 1:13 PM INDICATION: [...] no abnormal masses or adenopathy identified. Marilyn Islyamova MD CT from Last 3 Months or Most Recently Relevant to Health Maintenance Advance Directives * Full Code (Latest Code Status on File) Date Activated Date Inactivated Comments 07/09/2023 4:00 PM Question Answer Comments Code Status Discussion: Reviewed Preferences * Full Code Date Activated Date Inactivated Comments 01/13/2023 6:22 PM 01/14/2023 3:41 PM Question Answer Comments Code Status Discussion: Reviewed Preferences * Full Code Date Activated Date Inactivated Comments 10/13/2021 11:04 PM 10/20/2021 4:12 PM Question Answer Comments Code Status Discussion: Reviewed Preferences Care Teams Inspector Packer Glass Container Relationship Specialty [place] [address] [place] [address] PCP - General Family Practice 02/22/22
--- OUTSIDE RECORDS SUMMARY | 2023-07-14 06:18 | XMS_ITS | Encounter Summary ---
Author Name Unknown Organization [place] Address [address] [place] [address] Care Team Providers Care Websphere Portal Developer Name Role Phone Alek Jones MD Unavailable [phone] Neelima Shukla DO Primary Care Provider [phone] Brayden Du MD Unavailable Reason for Referral * Mental Health Outpatient (Routine) - Pending Review Specialty Diagnoses / Procedures Referred By Contac t Referred To Contact Behavioral Health Diagnoses Alcohol use, unspecified with other alcohol-induced disorder (H) Jessy Membreno CNP [address] [facility] [address] [place] [address] Referral ID Status Reason Start Date Expiration Date V isits Requested Visits Authorized [id number] Pending Review 07/01/2023 06/30/2024 1 1 Question Answer Services: Substance Use Substance Use - REVIEW REFERENCE LINK BELOW: Other My Clinical Question Is: alcohol use unspecified with other alcohol induced disorder Scheduling Instructions: Shemar Haywood will call you to coordinate your care as prescribed by your provider. If you don't hear from a disability representative within 2 business days, please call . Comments Referral Transcribed by external fax Provider: HOME Membreno affiliated with [facility] clinic at [address] [facility] [address] [place] [address]. VA: No If yes was is the VA Authorization Number: Phone number: [phone] Fax number: [phone] Please be aware that coverage of these services is subject to the terms and limitations of your health insurance plan. Call member services at your health plan with any benefit or coverage questions. [employer] will call you to coordinate your care as prescribed by your provider. If you don't hear from a disability representative within 2 business days, please call [...] Sex Assigned at Female 02/28/2021 1:24 PM BROADCAST DESIGNER Gender Identity Female 02/28/2021 1:23 PM BROADCAST DESIGNER Sexual Orientation Straight 02/28/2021 1: 20 PM BROADCAST DESIGNER documented as of this encounter Plan of Treatment Scheduled Referrals Name Type Priority Associated Diagnoses Orde r Schedule Adult Mental Health Gas Specialist Referral Referral Routine Alcohol use, unspecified with other alcohol-induced disorder (H) Expected: 07/01/2023 (Approximate), Expires: 06/30/2024 documented as of this encounter Visit Diagnoses Diagnosis Alcohol use, unspecified with other alcohol-induced disorder (H)- Primary documented in this encounter Additional Health Concerns Assessment Noted Time PHQ-9 Depression Total Score: 9 02/18/20 21 7:30 AM BROADCAST DESIGNER documented as of this encounter Care Teams Websphere Portal Developer Relationship Specialty [place] [address] [place] [address] PCP - General Family Medicine 01/12/22 Alek Jones MD [address] [place] [address], [address] [address] Assigned PCP 03/01/21 Brayden Du MD [address] [facility] [id number], [place] [address] Neurology 05/06/22 documented as of this encounter
--- OUTSIDE RECORDS SUMMARY | 2023-07-14 06:18 | XMS_ITS | Encounter Summary ---
Author Name Unknown Organization [place] Address [address] [facility] [place] [address] Care Team Providers Care Feller Buncher Operator Name Role Phone Alek Jones MD Unavailable [phone] Neelima Shukla DO Primary Care Provider [phone] Brayden Du MD Unavailable Encounter Details Date [...] Sex Assigned at Female 02/28/2021 1:24 PM LINUX DEVOPS ENGINEER Gender Identity Female 02/28/2021 1:23 PM LINUX DEVOPS ENGINEER Sexual Orientation Straight 02/28/2021 1: 20 PM LINUX DEVOPS ENGINEER documented as of this encounter Plan of Treatment Not on file documented as of this encounter Visit Diagnoses Not on filedocumented in this encounter Additional Health Concerns Assessment Noted Time PHQ-9 Depression Total Score: 9 02/18/20 21 7:30 AM LINUX DEVOPS ENGINEER documented as of this encounter Care Teams Feller Buncher Operator Relationship Specialty Start [place] [address] [place] [address] PCP - General Family Medicine 01/12/22 Alek Jones MD [id number] [place] [address] Assigned PCP 03/01/21 Brayden Du MD [address] [facility] [id number] [place], [place] [address] Neurology 05/06/22 documented as of this encounter
--- OUTSIDE RECORDS SUMMARY | 2023-07-14 06:18 | XMS_ITS | Referral Summary ---
Author Name Unknown Organization [facility] Address [address] [place] [address]. [place] [address] Care Team Providers Care Gun Examiner Name Role Phone Alek Jones MD Unavailable Neelima Shukla DO Primary Care Provider [phone] Brayden Du MD Unavailable Encounters Date Type Department Care Team Description 07/01/2023 Transcribe Orders GENERIC EXTERNAL DATA DEPARTMENT Provider, Generic External Data Alcohol use, unspecified with other alcohol-induced disorder (H) (Primary Dx) 06/23/[address] [facility] [address] [place] [phone] Scan, Non-Provider 06/11/2023 7:17 PM CDT - 06/12/2023 11:01 AM CDT Emergency [facility] Emergency Dept [address] [place] [phone] Kaushal Mao MD AmdIsma posey MD Goodwin, Shaun M, MD Alcoholic intoxication without complication (H24) Discharge Disposition: Home or Self Care 06/11/2023 Travel 06/08/2023 Telephone [facility] Emergency Dept [address] [place] [phone] Adi Edmond RN Results 06/06/2023 10:35 AM CDT - 06/06/2023 7:56 PM CDT Emergency [facility] Emergency Dept [address] [place] [phone] Kimmy Cisneros, Fall, initial encounter; Hip pain, [...] legally designated decision maker(s). 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 Last seizure 2008 Pt on dilantin and sees neurology at [facility] History of migraine 09/19/2012 Resolved Problems [...] Sex Assigned at Female 02/28/2021 1:24 PM PROGRAM TRAINER Gender Identity Female 02/28/2021 1:23 PM PROGRAM TRAINER Sexual Orientation Straight 02/28/2021 1: 20 PM PROGRAM TRAINER Last Filed Vital Signs Vital Sign Reading Time Taken Comments Blood Pressure 128/67 06/12/2023 10:29 AM CDT Pulse 126 06/12/2023 10:15 AM CDT Temperature 36.7 ??C (98 ??F) 06/11/2023 8:37 PM CDT Respiratory Rate 15 06/11/2023 7:45 PM CDT Oxygen Saturation 96% 06/12/2023 10:31 AM CDT Inhaled Oxygen Concentration - - Weight 72.6 kg (160 lb) 03/07/2023 5:06 PM PROGRAM TRAINER Height 162.6 cm (5' 4) 03/07/2023 5:06 PM PROGRAM TRAINER Body Mass Index 27.46 03/07/2023 5:06 PM PROGRAM TRAINER Plan of Treatment Not on file Medical Devices Implanted Type Area Fine Sander Device Identifier Shelf Expiration Date Model / Serial / Lot Imp Scr Syn Lcp Dist 2.7x12mm Self Tap Ss 202.212 - [id number] Implanted:Qty: 1 on 10/24/2020 by Quentin Pritchett MD at [facility] Metallic Hardware/An chor Left: Ankle SYNTHES-STRATEC 202.212 / / [id number] Imp Scr Syn Lcp Dist 2.7x14mm Self Tap Ss 202.214 - [id number] Implanted:Qty: 1 on 10/24/2020 by Quentin Pritchett MD at [facility] Metallic Hardware/An chor Left: Ankle SYNTHES-STRATEC 202.214 / / [id number] 21 Imp Scr Syn Lcp Dist 2.7x16mm Self Tap Ss 202.216 - [id number] Implanted:Qty: 3 on 10/24/2020 by Quentin Pritchett MD at [facility] Metallic Hardware/An chor Left: Ankle SYNTHES-STRATEC 202.216 / / [id number] 21 Imp Scr Syn Cortex 2.7x32mm Self Tap Ss 202.832 - [id number] Implanted:Qty: 1 on 10/24/2020 by Quentin Pritchett MD at [facility] Metallic Hardware/An chor Left: Ankle SYNTHES-STRATEC 202.832 / / [id number] L2021 Imp Scr Syn 3.5x12mm Locking W/Stardrive Ss 212.102 - [id number] Implanted:Qty: 2 on 10/24/2020 by Quentin Pritchett MD at [facility] Metallic Hardware/An chor Left: Ankle SYNTHES-STRATEC 212.102 / / [id number] L2021 Imp Scr Syn Cortex 3.5x16mm Self Tap Ss 204.816 - [id number] Implanted:Qty: 1 on 10/24/2020 by Quentin Pritchett MD at [facility] Metallic Hardware/An chor Left: Ankle SYNTHES-STRATEC 204.816 / / [id number] L2021 Imp Scr Syn Cortex 3.5x28mm Self Tap Ss 204.828 - [id number] Implanted:Qty: 1 on 10/24/2020 by Quentin Pritchett MD at [facility] Metallic Hardware/An chor Left: Ankle SYNTHES-STRATEC 204.828 / / [id number] L2021 Imp Scr Syn Cortex 3.5x38mm Self Tap Ss 204.838 - [id number] Implanted:Qty: 1 on 10/24/2020 by Quentin Pritchett MD at [facility] Metallic Hardware/An chor Left: Ankle SYNTHES-STRATEC 204.838 / / [id number] L2021 Imp Scr Syn Can 4.0x40mm Long Thrd Ss 207.740 - [id number] Implanted:Qty: 1 on 10/24/2020 by Quentin Pritchett MD at [facility] Metallic Hardware/An chor Left: Ankle SYNTHES-STRATEC 207.740 / / [id number] L2021 Imp Wire Margarita 0.045x4 78.2019 - [id number] Implanted:Qty: 1 on 10/24/2020 by Quentin Pritchett MD at [facility] Wire Left: Ankle G SOURCE 78.202 / / 4.0mm Ti Locking Screww/T25 Implanted:Qty: 1 on 01/16/2014 by Bayron Can MD at [facility] Left: Humerus SYNTHES 08/27/2019 04.005.4 44S / / [id number] 4.5mm Ti Multiloc Screw 42mm Implanted:Qty: 1 on 01/16/2014 by Bayron Can MD at [facility] Left: Humerus SYNTHES 03/28/2022 04.019.0 42S / / [id number] 4.5mm Ti Mulitloc Screw 38mm Implanted:Qty: 1 on 01/16/2014 by Bayron Can MD at [facility] Left: Humerus SYNTHES 02/25/2022 04.019.0 38S / / [id number] 4.0mm Ti Locking Screw 24mm Implanted:Qty: 1 on 01/16/2014 by Bayron Can MD at [facility] Left: Humerus SYNTHES 08/26/2022 04.005.4 14S / / [id number] 4.0mm Ti Locking Screw 26mm Implanted:Qty: 1 on 01/16/2014 by Bayron Can MD at [facility] Left: Humerus SYNTHES 12/26/2021 04.005.4 16S / / [id number] Multiloc End Cap Implanted:Qty: 1 on 01/16/2014 by Bayron Can MD at [facility] Left: Humerus SYNTHES 11/26/2022 04.019.0 00S / / [id number] 4.5mmti Multiloc Screw 38mm Implanted:Qty: 1 on 01/16/2014 by Bayron Can MD at [facility] Left: Humerus SYNTHES 02/25/2023 04.019.0 38S / / [id number] 3.5mm Lcp Hook Plate Implanted:Qty: 1 on 10/24/2020 by Quentin Pritchett MD at [facility] Left: Ankle SYNTHES 02.113.1 8001 [id number] 2.7mm/3.5mm Lcp Posterolateral Distal Fibula Plates Implanted:Qty: 1 on 10/24/2020 by Quentin Pritchett MD at [facility] Left: Ankle SYNTHES 02.112.1 8001 [id number] Procedures Procedure Name Priority Date/Time Associated [...] PANEL (BFP) Routine 02/24/2021 3:3 5 PM PROGRAM TRAINER Mixed hyperlipidemia MA DIAGNOSTIC BILATERAL W/ JESSE Routine 12/09/2017 THINPREP PAP RFLX HPV MRNA E6/E7 ([facility]) Routine 03/04/2017 3:13 PM PROGRAM TRAINER Encounter for gynecological examination without abnormal finding HEPATITIS C ANTIBODY Routine 04/07/2016 3:32 PM PROGRAM TRAINER Need for hepatitis C screening test DRUG ABUSE SCREEN 8 URINE (UR) STAT 01/26/2006 2:35 PM PROGRAM TRAINER from Last 3 Months or Most Recently [...] MD LAB - BLOOD ORDE [facility] Lab [address] Lab (1st floor, no room number) [place] [address] * (ABNORMAL) Alcohol level blood (06/11/2023 8:53 PM CDT) Only the most recent of2 resultswithin the time period is included. Alcohol ethyl 0.35(HH) <=0.01 g/dL 06/11/2023 9:38 PM CDT [facility] Blood STRUCTURE OF RIGHT HAND / Unknown Venipuncture / Unknown 06/11/2023 8:53 PM CDT 06/11/2023 9:00 PM CDT Kaushal Mao MD LAB - BLOOD [facility] Lab [address] Lab (1st floor, no room number) [place] [address], [facility] * (ABNORMAL) Basic metabolic panel (BMP) (06/11/2023 8:53 PM CDT) [facility] Signature Sodium 141 135 - 145 [...] MD LAB - BLOOD YINKA PHILLIPS [facility] Lab [address] Lab (1st floor, no room number) [place] [address], [facility] * [...] 06/06/2023 1:53 PM CDT RH LABORATORY Specific [place] Urine 1.020 1.003 - 1.035 06/06/2023 1:53 [...] DO LAB - URINE ORDERABL ES LABORATORY [facility] Lab [address] [facility] Lab (1st floor, no room number) [place] [address], [facility] * (ABNORMAL) Urine Culture (06/06/2023 1:37 PM [...] coli Cefazolin JANICE <=4 ug/mL: Susceptible Comment:Cefazolin VT C breakpoints are for the treatment of [...] - MICRO GENERAL ORDERABLES UU IDD LABORATORY [facility] Inf. Diseases Diag. Lab [address] [facility], [address] [place] [address], [facility] * XR Pelvis w Hip Left 1 View (06/06/2023 1:01 PM CDT) Anatomical Region Laterality Modality Abdomen/Pelvis Left Digital Radiogra phy Impressions 06/06/2023 1:16 PM CDT IMPRESSION: No acute fracture or malalignment. Mild degenerative changes throughout the pelvis and lower lumbar spine. Osteopenia. JAZIEL SANDOVAL MD SYSTEM ID: ??[id number] Narrative 06/06/2023 1:16 PM CDT XR PELVIS [...] spine. Osteopenia. JAZIEL SANDOVAL MD SYSTEM ID: [id number] Kimmy Cisneros DO IMG DIAGNOSTIC IMAGI NG [...] aneurysm coiling. NAIMA OCAMPO MD SYSTEM ID: ??[id number] Narrative 06/06/2023 12:41 PM CDT EXAM: CT HEAD W/O CONTRAST ??06/06/2023 12:27 PM HISTORY: ??fall ?? COMPARISON: ??Head CT 07/08/2015 TECHNIQUE: Using multidetector thin collimation helical acquisition technique, axial, coronal and sagittal CT images from the skull base to the vertex were obtained without intravenous contrast. Cable Inspector (topogram) image(s) also obtained and reviewed. Dose [...] the vertex were obtained without intravenous contrast. Cable Inspector (topogram) image(s) also obtained and reviewed. Dose [...] aneurysm coiling. NAIMA OCAMPO MD SYSTEM ID: [id number] Kimmy Cisneros DO IMG CT ORDERABLES * [...] Atrial Rate 133 BPM RADIOLOG Y RESULTS ME Interval 112 ms RADIOLOG Y RESULTS QRS Duration 72 ms RADIOLO GY RESULTS QT 408 ms RADIOLOGY RESULTS QTc 602 ms RADIOLOGY RESULTS P [place] 27 degrees RADIOLOGY RESULTS R AXIS 70 degrees RADIOLOGY RESULTS T [place] 31 degrees RADIOLOGY RESULTS Interpretation ECG Sinus [...] Confirmed by - EMERGENCY ROOM, PHYSICIAN ([id number]), fan mail editor Aureliano Castellanos ([id number]) on 06/06/2023 3:26:20 PM RADIOLOGY RESULTS 06/06/2023 11:1 4 AM CDT 06/06/2023 3:26 PM CDT Kimmy Cisneros DO ECG ORDERABLES RADIOLOGY RESULTS * Extra Green Top ([place] Heparin) ON ICE (06/06/2023 11:04 AM CDT) Hold Specimen [facility] 06/06/2023 12:32 PM CDT LABORATORY Blood VENOUS LINE / Unknown Venipuncture / Unknown 06/06/2023 11:04 AM CDT 06/06/2023 11:17 AM CDT Kimmy Cisneros DO LAB - BLOOD ORDERABL ES LABORATORY [facility] Lab [address] Lab (1st floor, no room number) [place] [address] * Extra Blood Culture Bottle (06/06/2023 11:04 AM CDT) Hold Specimen [facility] 06/06/2023 12:32 PM CDT RH LABORATORY Blood VENOUS LINE / Unknown Venipuncture / Unknown 06/06/2023 11:04 AM CDT 06/06/2023 11:17 AM CDT Kimmy Cisneros DO LAB - BLOOD ORDERABL ES [facility] Lab [address] Lab (1st floor, no room number) [place] [address] * Extra Red Top Tube (06/06/2023 11:04 AM CDT) Hold Specimen [facility] 06/06/2023 12:32 PM CDT RH LABORATORY Blood VENOUS LINE / Unknown Venipuncture / Unknown 06/06/2023 11:04 AM CDT 06/06/2023 11:17 AM CDT Kimmy Cisneros DO LAB - BLOOD ORDERABL ES Performing Organization Address City/[facility]/ZIP Co de Phone Number [facility] [address] Lab (1st floor, no room number) [place] [address], [facility] * Extra Blue Top Tube (06/06/2023 11:04 AM CDT) Hold Specimen [facility] 06/06/2023 12:32 PM CDT RH LABORATORY Blood VENOUS LINE / Unknown Venipuncture / Unknown 06/06/2023 11:04 AM CDT 06/06/2023 11:17 AM CDT Kimmy Cisneros DO LAB - BLOOD ORDERABL ES [facility] [address] Lab (1st floor, no room number) [place] [address] * Troponin T, High Sensitivity (06/06/2023 11:04 AM CDT) [facility] Troponin T, High Sensitivity 12 <=14 ng/L [...] Cisneros DO LAB - BLOOD ORDERABL ES [facility] [address] [facility] ([facility] floor, no room number) [place] [address] * Nt probnp inpatient (BNP) (06/06/2023 11:04 [...] Cisneros DO LAB - BLOOD ORDERABL ES [facility] Lab [address] Lab (1st floor, no room number) [address] * Magnesium (06/06/2023 11:04 AM CDT) Magnesium 1.8 1.7 - 2.3 mg/dL 06/06/2023 12:07 PM CDT LABORATORY Blood VENOUS LINE / Unknown Venipuncture / Unknown 06/06/2023 11:04 AM CDT 06/06/2023 11:17 AM CDT Kimmy Cisneros DO LAB - BLOOD ORDERABL ES Performing Organization Address [facility] Co de Phone Number [facility] Lab [address] Lab (1st floor, no room number) [address] * (ABNORMAL) Comprehensive metabolic panel (06/06/2023 [...] Cisneros DO LAB - BLOOD ORDERABL ES [facility] [address] Lab (1st floor, no room number) [place] [phone] [place] [address] * CK total (06/06/2023 11:04 AM CDT) CK 83 26 - 192 U/L 06/06/2023 1:07 PM CDT LABORATORY Blood VENOUS LINE / Unknown Venipuncture / Unknown 06/06/2023 11:04 AM CDT 06/06/2023 11:17 AM CDT Kimmy Cisneros DO LAB - BLOOD ORDERABL ES Performing Organization Address City/[facility]/ZIP Co de Phone Number [facility] Lab [address] Lab (1st floor, no room number) [address] * (ABNORMAL) Lipid Panel (BFP) (02/24/2021 3:35 PM PROGRAM TRAINER) Cholesterol 307(A) 0 - 199 mg/dL B[facility] INTERNAL Triglycerides 369(A) 0 - 149 mg/dL [facility] INTERNAL HDL Cholesterol 108 40 - 150 mg/dL [facility] INTERNAL LDL Cholesterol Direct 125 0 - 130 mg/dL [facility] INTERNAL Cholesterol/HDL Ratio 3 0 - 5 [facility] INTERNAL Blood 02/24/2021 3:35 PM PROGRAM TRAINER Alek Jones MD LAB - NON-[facility] BLOOD LABS BFP INTERNAL * MA Diagnostic Bilateral w/Jesse (12/09/2017) MAMMOGRAM Anatomical Region Laterality Modality Breast Bilateral Other Narrative 12/09/2017 [facility] [place] Phone: [phone] * Fax: [phone] [address] [place] [address] Age: 62 Y Dept No.: [id number] LEO MUELLER : 1955 Chart # Gender: F Req. Phys: Alek Jones MD Clinic MRN: Clinic: [facility] Acc#: [id number] Exam: MAMMOGRAM SCREENING JESSE BILATERAL Exam Date: [...] Signed by: DORA Thank You for choosing [facility] Page 1 of 1 Patient Reported IMG MAMMOGRAPHY ORDE RABZAID * ThinPrep Pap and HPV (mRNA E6/E7){HPV-REFLEX} ([facility]) (03/04/2017 3:13 PM PROGRAM TRAINER) Clinical History None given [facility] [...] Comment:Negative for intraep ithelial lesion or malignancy. Steward/Stewardess Tourist Class: SEE COMMENT [facility] [place] Comment: ERP, CT(ASCP) CT Screening location: [address] ??[address] Cervical swab (specimen) 03/04/2017 3:13 PM PROGRAM TRAINER 03/05/2017 2:58 AM PROGRAM TRAINER Narrative Resulting Agency Comment Performing Organization Information: ? [place] ? [facility] ? [address] [place] [address] ? Lars Calderon M.D. Alek Jones MD LAB - NON-AGUSTIN KER NON-BLOOD Performing Organization Address City/[facility] Co de Phone Number [facility] [address] [place] [address] * Hepatits C antibody ([facility]) (04/07/2016 3:32 PM PROGRAM TRAINER) Pathologist [facility] HCV Antibody NON-REACTI VE NON-REACTI VE [facility] SIGNAL TO CUT OFF - [facility] 0.03 <1.00 [facility] Blood specimen (specimen) 04/07/2016 3:32 PM PROGRAM TRAINER 04/08/2016 3:37 AM PROGRAM TRAINER Narrative Resulting Agency Comment Performing Organization Information: ? [place] ? [facility] ? [address] [place] [address] ? Lars Calderon M.D. Alek Jones MD LAB - BLOOD O RDERABLES Performing Organization Address City/[facility]/ZIP Co de Phone Number [facility] [employer] [address] [place] [address] * (ABNORMAL) Drug abuse screen 8 urine (UR) (01/26/2006 2:35 PM PROGRAM TRAINER) Amphetamine Qual Urine Negative NEG MISYS Ethanol Qual Urine Negative NEG MISYS Opiates Qualitative Urine Positive(A) NEG MISYS PCP Qual Urine Negative NEG MISYS Benzodiazepine Qual Urine Negative NEG MISYS Barbiturates Qual Urine Negative NEG MISYS Cocaine Qual Urine Negative NEG MISYS Cannabinoids Qual Urine Negative NEG MISYS 01/26/2006 2:35 PM PROGRAM TRAINER 01/26/2006 2:25 PM PROGRAM TRAINER Russell Trinidad MD LAB - URINE ORDERABLES MISYS from Last 3 Months or Most Recently Relevant to Health Maintenance Advance Directives For more information, please contact: [phone] * Full Code (Latest Code Status on [...] 5:45 PM 01/17/2014 4:33 PM Care Teams Gun Examiner Relationship Specialty [place] [address] [place] [address] PCP - General Family Medicine 01/12/22 Alek Jones MD [address] , [id number] [place] [address] Assigned PCP 03/01/21 Brayden Du MD [address] [facility] [id number] [place], [place] [id number] Neurology 05/06/22
--- OUTSIDE RECORDS SUMMARY | 2023-07-14 06:18 | XMS_ITS | Encounter Summary ---
Author Name Unknown Organization [place] Address Formerly [facility]0 [facility] [place] [address] Care Team Providers Care Power Shovel Operator Name Role Phone Alek Jones MD Unavailable [phone] Neelima Shukla DO Primary Care Provider [phone] Brayden Du MD Unavailable Reason for Visit * Reason Comments Fall Sled out of her WC Encounter Details Date Type Department Care Team (Late st Contact Info) Description 06/06/2023 10:35 AM CDT - 06/06/2023 7:56 PM CDT Emergency [facility] Emergency Dept [address] [place] [address] Kimmy Cisneros DO [facility] [address] [place] [address] Fall, initial encounter; Hip pain, left; Urinary [...] Sex Assigned at Female 02/28/2021 1:24 PM STUDIO OPERATIONS ENGINEER IN CHARGE Gender Identity Female 02/28/2021 1:23 PM STUDIO OPERATIONS ENGINEER IN CHARGE Sexual Orientation Straight 02/28/2021 1: 20 PM STUDIO OPERATIONS ENGINEER IN CHARGE documented as of this encounter Last Filed [...] through Care Everywhere. * Alcohol Intoxication: Acute (Iraqi) * Joint Pain (Iraqi) * UTI (Urinary Tract Infection): Female (Iraqi) documented in this encounter Medications at Time [...] 0 12/31/2014 hydrocortisone, Perianal, (PROCTOZONE-HC) 2.5 % creamIndications:Horologist al hemorrhoids Place rectally 2 times daily [...] in 2000, progressively worse per pt. Receives STRAWBERRY GROWER servicesTuesday-, says she does drink alcohol last [...] age undetermined Abnormal ECG Rate 131 bpm. AK interval 112 ms. QRS duration 72 ms. QT/QTc 408/602 ms. P-R-T axes 27 70 31. Imaging: XR Pelvis w Hip Left 1 View Final Result IMPRESSION: No acute fracture or malalignment. Mild degenerative changes throughout the pelvis and lower lumbar spine. Osteopenia. JAZIEL SANDOVAL MD SYSTEM ID: [id number] Head CT w/o contrast Final Result IMPRESSION: 1. No acute intracranial pathology. 2. 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 NAIMA OCAMPO MD SYSTEM ID: [id number] XR Chest 2 Views Preliminary Result IMPRESSION: [...] Urine Negative Ketones Urine Trace (*) Specific [place] Urine 1.020 Blood Urine Small (*) pH [...] to care for self she has a STRAWBERRY GROWER that comes 4 days a week. She [...] The patient was discharged. Impression & Plan [facility] Diagnoses: None Medical Decision Makin-year-old [...] coli Cefazolin JANICE <=4 ug/mL: Susceptible Comment:Cefazolin PR C breakpoints are for the treatment of [...] - MICRO GENERAL ORDERABLES UU IDD LABORATORY [facility] Inf. Diseases Diag. Lab [address] [facility], [address] [place], [place] [id number] * (ABNORMAL) UA with Microscopic reflex [...] 06/06/2023 1:53 PM CDT RH LABORATORY Specific [place] Urine 1.020 1.003 - 1.035 06/06/2023 1:53 [...] DO LAB - URINE ORDERABL ES LABORATORY [facility] Acute Care Lab [address] [facility] Lab (1st floor, no room number) [place] [address] * XR Pelvis w Hip Left 1 View (06/06/2023 1:01 PM CDT) Anatomical Region Laterality Modality Abdomen/Pelvis Left Digital Radiogra phy Impressions 06/06/2023 1:16 PM CDT IMPRESSION: No acute fracture or malalignment. Mild degenerative changes throughout the pelvis and lower lumbar spine. Osteopenia. JAZIEL SANDOVAL MD SYSTEM ID: ??[id number] Narrative 06/06/2023 1:16 PM CDT XR PELVIS [...] spine. Osteopenia. JAZIEL SANDOVAL MD SYSTEM ID: [id number] Kimmy Cisneros DO IMG DIAGNOSTIC IMAGI NG [...] aneurysm coiling. NAIMA OCAMPO MD SYSTEM ID: ??[id number] Narrative 06/06/2023 12:41 PM CDT EXAM: CT HEAD W/O CONTRAST ??06/06/2023 12:27 PM HISTORY: ??fall ?? COMPARISON: ??Head CT 07/08/2015 TECHNIQUE: Using multidetector thin collimation helical acquisition technique, axial, coronal and sagittal CT images from the skull base to the vertex were obtained without intravenous contrast. Wearing Apparel Folder (topogram) image(s) also obtained and reviewed. Dose [...] the vertex were obtained without intravenous contrast. Wearing Apparel Folder (topogram) image(s) also obtained and reviewed. Dose [...] aneurysm coiling. NAIMA OCAMPO MD SYSTEM ID: [id number] [facility] ORDERABLES * XR Chest 2 Views (06/06/2023 12:14 PM CDT) Anatomical Region Laterality Modality Chest Digital Radiogra phy Impressions 06/06/2023 4:01 PM CDT IMPRESSION: Mild bibasilar opacities may be related to atelectasis or infection. No pneumothorax. Pulmonary vascularity is within normal limits. No pleural effusions. ACDF. DIPESH BLCAK MD Narrative 06/06/2023 4:01 PM CDT CHEST [...] Atrial Rate 133 BPM RADIOLOG Y RESULTS AK Interval 112 ms RADIOLOG Y RESULTS QRS Duration 72 ms RADIOLO GY RESULTS QT 408 ms RADIOLOGY RESULTS QTc 602 ms RADIOLOGY RESULTS P Robert 27 degrees RADIOLOGY RESULTS R AXIS 70 degrees RADIOLOGY RESULTS T Robert 31 degrees RADIOLOGY RESULTS Interpretation ECG Sinus [...] Confirmed by - EMERGENCY ROOM, PHYSICIAN ([id number]), digital editor Aureliano Castellanos ([id number]) on 06/06/2023 3:26:20 PM RADIOLOGY RESULTS 06/06/2023 [...] - BLOOD ORDERABL ES Performing Organization Address City/[facility]/ZIP Co de Phone Number [facility] Acute Care Lab [address] Lab (1st floor, no room number) [place] [address] * Extra Blood Culture Bottle (06/06/2023 11:04 AM CDT) Hold Specimen JIC 06/06/2023 12:32 PM CDT LABORATORY Blood VENOUS LINE / Unknown Venipuncture / Unknown 06/06/2023 11:04 AM CDT 06/06/2023 11:17 AM CDT Kimmy Cisneros DO LAB - BLOOD ORDERABL ES [facility] Acute Care Lab [address] Lab (1st floor, no room number) [place] [address], [facility] * Extra Green Top ([place] Heparin) ON ICE (06/06/2023 11:04 AM CDT) Hold Specimen [facility] 06/06/2023 12:32 PM CDT RH LABORATORY Blood VENOUS LINE / Unknown Venipuncture / Unknown 06/06/2023 11:04 AM CDT 06/06/2023 11:17 AM CDT Kimmy Cisneros DO LAB - BLOOD ORDERABL ES Performing Organization Address City/[facility]/ZIP Co de Phone Number [facility] Lab [address] Lab (1st floor, no room number) [place] [address] * Extra Red Top Tube (06/06/2023 11:04 AM CDT) Hold Specimen [facility] 06/06/2023 12:32 PM CDT RH LABORATORY Blood VENOUS LINE / Unknown Venipuncture / Unknown 06/06/2023 11:04 AM CDT 06/06/2023 11:17 AM CDT Kimmy Cisneros DO LAB - BLOOD ORDERABL ES Performing Organization Address [facility]/ZIP Co de Phone Number [facility] Care Lab [address] Lab (1st floor, no room number) [place] [address], [facility] * Extra Blue Top Tube (06/06/2023 11:04 AM CDT) Hold Specimen [facility] 06/06/2023 12:32 PM CDT RH LABORATORY Blood VENOUS LINE / Unknown Venipuncture / Unknown 06/06/2023 11:04 AM CDT 06/06/2023 11:17 AM CDT Kimmy Cisneros DO LAB - BLOOD ORDERABL ES [facility] Acute Care Lab [address] Lab (1st floor, no room number) [place] [address], [facility] * (ABNORMAL) CBC with platelets and differential [...] LAB - BLOOD ORDERABL ES RH LABORATORY [facility] Acute Care Lab [address] Lab (1st floor, no room number) [place] [address], [facility] [phone] * Nt probnp inpatient (BNP) (06/06/2023 11:04 AM CDT) [facility] Signature N terminal Pro BNP Inpatient [...] BLOOD ORDERABL ES [facility] Acute Care Lab [address] Lab (1st floor, no room number) [place] [id number] * Troponin T, High Sensitivity [...] BLOOD ORDERABL ES [facility] Acute Care Lab [address] Lab (1st floor, no room number) [place] [address], [facility] * (ABNORMAL) Ethyl Alcohol Level (06/06/2023 11:04 AM CDT) Alcohol ethyl 0.10(H) <=0.01 g/dL 06/06/2023 12:07 PM CDT LABORATORY Blood VENOUS LINE / Unknown Venipuncture / Unknown 06/06/2023 11:04 AM CDT 06/06/2023 11:17 AM CDT Kimmy Cisneros DO LAB - BLOOD ORDERABL ES LABORATORY [facility] Care Lab [address] Lab (1st floor, no room number) [place] [address] * Magnesium (06/06/2023 11:04 AM CDT) Magnesium 1.8 1.7 - 2.3 mg/dL 06/06/2023 12:07 PM CDT LABORATORY Blood VENOUS LINE / Unknown Venipuncture / Unknown 06/06/2023 11:04 AM CDT 06/06/2023 11:17 AM CDT Kimmy Cisneros DO LAB - BLOOD ORDERABL ES Performing Organization Address City/[facility]/ZIP Co de Phone Number LABORATORY [facility] Lab [address] Lab (1st floor, no room number) [place] [address] * (ABNORMAL) Comprehensive metabolic panel (06/06/2023 [...] Kimmy Cisneros LAB - BLOOD ORDERABL ES [facility] Acute Care Lab [address] [facility] Lab (1st floor, no room number) [place] [address], [facility] documented in this encounter Visit Diagnoses Diagnosis [...] this section may contain times in both STUDIO OPERATIONS ENGINEER IN CHARGE and CDT. Scheduled Medication Order 06/04/2023 06/05/2023 [...] Total Score: 9 02/18/20 21 7:30 AM STUDIO OPERATIONS ENGINEER IN CHARGE documented as of this encounter Care Teams Power Shovel Operator Relationship Specialty [place] [address] [place] [address] PCP - General Family Medicine 01/12/22 Alek Jones MD [address] , [id number] [place] [address] Assigned PCP 03/01/21 Brayden Du MD [address] [facility] [id number] [place] [address] Neurology 05/06/22 documented as of this encounter
--- OUTSIDE RECORDS SUMMARY | 2023-07-14 06:18 | XMS_ITS | Encounter Summary ---
Author Name Unknown Organization [place] Address [facility] [place] [address] Care Team Providers Care License Distributor Name Role Phone Alek Jones MD Unavailable [phone] Neelima Shukla DO Primary Care Provider [phone] Brayden Du MD Unavailable Reason for Visit * Reason Onset Date Comments Results 06/08/2023 Encounter Details Date Type Department Care Team (Late st Contact Info) Description 06/08/2023 Telephone [facility] Emergency Dept [address] [place] [phone] Adi Edmond, FILIPPO Results Social History Tobacco [...] Sex Assigned at Female 02/28/2021 1:24 PM INFORMATION RESOURCE CONSULTANT Gender Identity Female 02/28/2021 1:23 PM INFORMATION RESOURCE CONSULTANT Sexual Orientation Straight 02/28/2021 1: 20 PM INFORMATION RESOURCE CONSULTANT documented as of this encounter Miscellaneous Notes * Telephone Encounter - Adi Edmond RN - 06/08/2023 9:18 AM CDT Images from the original note were not included. [facility] Reason for call: Lab Result Notification Lab Result (including Rx patient on, if applicable). If culture, copy of lab report at bottom. Lab Result: Final Urine Culture Report on 06/07/23 [facility] Emergency Dept discharge antibiotic prescribed: Cephalexin (Keflex) 500 mg capsule, 1 capsule (500 mg) by mouth 4 times daily for 7 days. Date of Rx (if applicable): 06/06/23 #1. Bacteria, 50,000 - 100,000 CFU/ML Escherichia coli is SUSCEPTIBLE to Antibiotic. No change in treatment per [facility] ED lab result Urine Culture protocol. [...] Total Score: 9 02/18/20 21 7:30 AM INFORMATION RESOURCE CONSULTANT documented as of this encounter Care Teams License Distributor Relationship Specialty [place] [address] [place] [address] PCP - General Family Medicine 01/12/22 Alek Jones MD [address], [id number] [place] [address] Assigned PCP 03/01/21 Brayden Du MD [address] [facility] [address] Neurology 05/06/22 documented as of this encounter
--- OUTSIDE RECORDS SUMMARY | 2023-07-14 06:18 | XMS_ITS | Encounter Summary ---
Author Name Unknown Organization [place] Address [address] [place] [address]. [place] [address] Care Team Providers Care Clod Puller Name Role Phone Alek Jones MD Unavailable Neelima Shukla DO Primary Care Provider [phone] Brayden Du MD Unavailable Reason for Visit * Reason Comments Alcohol Intoxication Encounter Details Date Type Department Care Team (Late st Contact Info) Description 06/11/2023 7:17 PM CDT - 06/12/2023 11:01 AM CDT [facility] Emergency Dept [address] [place] [address] [phone] Kaushal Mao MD [facility] [address] [place], [place] [address] Isma Mohr MD [facility] [address] [place] [address] Darrick Reaves MD [facility] [address] [place], [place] [address] Alcoholic intoxication without complication (H24) Discharge Disposition: [...] Sex Assigned at Female 02/28/2021 1:24 PM PEANUT SEPARATOR Gender Identity Female 02/28/2021 1:23 PM PEANUT SEPARATOR Sexual Orientation Straight 02/28/2021 1: 20 PM PEANUT SEPARATOR documented as of this encounter Last Filed [...] nerves or get rid of a hangover(eye die storage clerk)? If you answer yes to any of [...] help, contact: Your caregiver. Alcoholics Anonymous (AA). [facility] Intergroup: [phone] [place] [facility] Central Office: [phone] A drug or alcohol rehabilitation program. You [...] 0 12/31/2014 hydrocortisone, Perianal, (PROCTOZONE-HC) 2.5 % creamIndications:Mat Worker al hemorrhoids Place rectally 2 times daily [...] of this encounter Consult Notes * Alisha Elizabteh - 06/12/2023 9:00 AM CDTAssociated Order(s): CARE MANAGEMENT / SOCIAL WORK IP CONSULT Rodent Exterminator was asked to meet with patient to coordinate discharging home. Pt uses a wheelchair at baseline and does not have her wheelchair here. Pt's apartment is locked and she does not have keys. Rodent Exterminator met with patient and discussed situation. Pt lives in [facility] at [facility]. She has 5 hours of PENOLOGY TEACHER Mon-Th. She has a good friend in the building who helps her as well, this is Damian [phone] and he has a martini to her apartment and gave marketing writer permission to this marketing writer to call Damian. Pt reports she wants to go home today and does not want to remain in the hospital. She reports feeling safe to return home. She acknowledges she needs increased supports and is looking into Assisted Living Facilities, however does feel she can return home at this time. Rodent Exterminator spoke with Damian. He does have a [...] living, however Sabine is out this week. Rodent Exterminator met with Pt and she acknowledged this additional lock but believes the door can be jimmied open. Rodent Exterminator discussed the option of calling After [employer] Emergency Maintenance for her building and the pt agreed. Rodent Exterminator called [phone] and spoke to Samreen who took down the request. mortgage operations manager Gavino [phone] called shortly later. Explained the situation to him and he indicated that he may need to call and lock manie which would be extra charges the patient would need to pay. Pt and writercalled Gavino back and patient gave consent to call a mounter smoking pipe if needed because she needs to get into her apartment. Pt informed this marketing writer that neighbor Damian is okay with her coming back to his apartment and waiting there until her apartment is accessible. She reports she has a wheelchair in Damian's apartment. Rodent Exterminator then spoke to patient about increased supports, provided her with her CADI workers name and number (obtained from [facility]) [employer], . Rodent Exterminator encouraged to call [facility] on Tuesday and inform her of the need for increased supports and RAJEEV. Rodent Exterminator informed care team that patient has a safe place to return to while her apartment is unlocked, same building number and unit will be 116 (Damian). Faith Elizabeth [facility], [facility] [employer] Inpatient Care Coordination [facility] [phone] documented in this encounter ED Notes * [...] 1,000 mL (0 mLs Intravenous Stopped 06/11/23 8955) Independent Interpretation (X-rays, CTs, rhythm strip): See [...] Mao MD Vaughn, Christopher E, MD 06/11/23 6026 * Darrick Reaves MD - 06/11/2023 7:17 [...] about the possibility that the patient's home office representative may have quit this week and patient is not able to adequately care for herself. Patient denies this. We did consult social work and they investigatedas well. Social work notes that the home office representative only comes for approximately 5 hours a [...] PM CDT 06/11/2023 9:00 PM CDT Kaushal Moa MD LAB - BLOOD ORDE [facility] Organization Address City/State/ZIP Co de Phone Number LABORATORY [facility] Acute Care Lab [address] Lab (1st floor, no room number) [place] [address] * (ABNORMAL) Alcohol level blood (06/11/2023 8:53 PM CDT) Alcohol ethyl 0.35(HH) <=0.01 g/dL 06/11/2023 9:38 PM CDT RH LABORATORY Blood STRUCTURE OF RIGHT HAND / Unknown Venipuncture / Unknown 06/11/2023 8:53 PM CDT 06/11/2023 9:00 PM CDT Kaushal Mao MD LAB - BLOOD YINKA FONGZAID RH LABORATORY [facility] Acute Care Lab [address] [facility] Lab (1st floor, no room number) [place] [address], [facility] * (ABNORMAL) Basic metabolic [...] Mao MD LAB - BLOOD YINKA PHILLIPS [facility] Organization Address City/State/ZIP Co de Phone Number [facility] Acute Care Lab [address] [facility] Lab (1st floor, no room number) [place] [address] documented in this encounter Visit [...] RN) 0450 ($Given - Provider: Carmelita Ivy RN)0663 ($Given - Provider: Corazon Ulrich, FILIPPO)0825 ($Given - Provider: Faith Henry, RN)102 ($Given - Provider: Kori Ludwig, FILIPPO) documented in this encounter Additional Health Concerns Assessment Noted Time PHQ-9 Depression Total Score: 9 02/18/20 21 7:30 AM PEANUT SEPARATOR documented as of this encounter Care Teams Clod Puller Relationship Specialty [place] [address] [place] [address] PCP - General Family Medicine 01/12/22 Alek Jones MD [address] [facility], [address] [address] Assigned PCP 03/01/21 Brayden Du MD [address] [facility] [id number] [place] [address] Neurology 05/06/22 documented as of this encounter
--- OUTSIDE RECORDS SUMMARY | 2023-07-14 06:18 | XMS_ITS | Encounter Summary ---
Author Name Unknown Organization [place] Address [facility]0 [facility] [place] [address] Care Team Providers Care Project Assistant Name Role Phone Alek Jones MD Unavailable [phone] Neelima Shukla DO Primary Care Provider [phone] Brayden Du MD Unavailable Encounter Details Date Type Department Care Team (Late st Contact Info) Description 06/23/2023 Medical Correspondence [facility] [address] [place] [address] Scan, Non-Provider Social History Tobacco [...] Sex Assigned at Female 02/28/2021 1:24 PM WILDLIFE MANAGEMENT PROFESSOR Gender Identity Female 02/28/2021 1:23 PM WILDLIFE MANAGEMENT PROFESSOR Sexual Orientation Straight 02/28/2021 1: 20 PM WILDLIFE MANAGEMENT PROFESSOR documented as of this encounter Plan of Treatment Not on file documented as of this encounter Visit Diagnoses Not on filedocumented in this encounter Additional Health Concerns Assessment Noted Time PHQ-9 Depression Total Score: 9 02/18/20 21 7:30 AM WILDLIFE MANAGEMENT PROFESSOR documented as of this encounter Care Teams Project Assistant Relationship Specialty Start [place] [address] [place] [address] PCP - General Family Medicine 01/12/22 Alek Jones MD [address], [address] [address] Assigned PCP 03/01/21 Brayden Du MD [address] [facility] [id number] [place] [address] Neurology 05/06/22 documented as of this encounter
--- OUTSIDE RECORDS SUMMARY | 2023-07-14 06:18 | XMS_ITS | Clinical Summary ---
Author Name Unknown Organization [facility] Address [address] [facility] [place] [address] Care Team Providers Care Analytics Director Name Role Phone Alek Jones MD Unavailable Neelima Shukla DO Primary Care Provider [phone] Brayden Du MD Unavailable Allergies Active Allergy [...] legally designated decision maker(s). 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 [address] [place] [address] Scan, Non-Provider 06/11/2023 7:17 PM CDT - 06/12/2023 11:01 AM CDT Emergency [facility] Emergency Dept [address] [place] [address] Kaushal Mao MD Amdahl, John, MD Goodwin, Shaun M, MD Alcoholic intoxication without complication (H24) Discharge Disposition: Home or Self Care 06/11/2023 Travel 06/08/2023 Telephone [facility] Emergency Dept [address] [place] [address] Adi Edmond RN Results 06/06/2023 10:35 AM CDT - 06/06/2023 7:56 PM CDT Emergency [facility] Emergency Dept [address] [place] [address] Kimmy Cisneros, Fall, initial encounter; Hip pain, [...] Sex Assigned at Female 02/28/2021 1:24 PM PROOF LOAD MECHANIC Gender Identity Female 02/28/2021 1:23 PM PROOF LOAD MECHANIC Sexual Orientation Straight 02/28/2021 1: 20 PM PROOF LOAD MECHANIC Last Filed Vital Signs Vital Sign Reading Time Taken Comments Blood Pressure 128/67 06/12/2023 10:29 AM CDT Pulse 126 06/12/2023 10:15 AM CDT Temperature 36.7 ??C (98 ??F) 06/11/2023 8:37 PM CDT Respiratory Rate 15 06/11/2023 7:45 PM CDT Oxygen Saturation 96% 06/12/2023 10:31 AM CDT Inhaled Oxygen Concentration - - Weight 72.6 kg (160 lb) 03/07/2023 5:06 PM PROOF LOAD MECHANIC Height 162.6 cm (5' 4) 03/07/2023 5:06 PM PROOF LOAD MECHANIC Body Mass Index 27.46 03/07/2023 5:06 PM PROOF LOAD MECHANIC Plan of Treatment Health Maintenance Due Date [...] this topic Medical Devices Implanted Type Area Sweatband Shaper Device Identifier Shelf Expiration Date Model / Serial / Lot Imp Scr Syn Lcp Dist 2.7x12mm Self Tap Ss 202.212 - [id number] Implanted:Qty: 1 on 10/24/2020 by Quentin Pritchett MD at [facility] Metallic Hardware/An chor Left: Ankle SYNTHES-STRATEC 202.212 / / [id number] Imp Scr Syn Lcp Dist 2.7x14mm Self Tap Ss 202.214 - [id number] Implanted:Qty: 1 on 10/24/2020 by Quentin Pritchett MD at [facility] Metallic Hardware/An chor Left: Ankle SYNTHES-STRATEC 202.214 / / [id number] Imp Scr Syn Lcp Dist 2.7x16mm Self Tap Ss 202.216 - [id number] Implanted:Qty: 3 on 10/24/2020 by Quentin Pritchett MD at [facility] Metallic Hardware/An chor Left: Ankle SYNTHES-STRATEC 202.216 / / [id number] 21 Imp Scr Syn Cortex 2.7x32mm Self Tap Ss 202.832 - [id number] Implanted:Qty: 1 on 10/24/2020 by Quentin Pritchett MD at [facility] Metallic Hardware/An chor Left: Ankle SYNTHES-STRATEC 202.832 / / [id number] L2021 Imp Scr Syn 3.5x12mm Locking W/Stardrive Ss 212.102 - [id number] Implanted:Qty: 2 on 10/24/2020 by Quentin Pritchett MD at [facility] Metallic Hardware/An chor Left: Ankle SYNTHES-STRATEC 212.102 / / [id number] L2021 Imp Scr Syn Cortex 3.5x16mm Self Tap Ss 204.816 - [id number] Implanted:Qty: 1 on 10/24/2020 by Quentin Pritchett MD at [facility] Metallic Hardware/An chor Left: Ankle SYNTHES-STRATEC 204.816 / / [id number] L2021 Imp Scr Syn Cortex 3.5x28mm Self Tap Ss 204.828 - [id number] Implanted:Qty: 1 on 10/24/2020 by Quentin Pritchett MD at [facility] Metallic Hardware/An chor Left: Ankle SYNTHES-STRATEC 204.828 / / [id number] L2021 Imp Scr Syn Cortex 3.5x38mm Self Tap Ss 204.838 - [id number] Implanted:Qty: 1 on 10/24/2020 by Quentin Pritchett MD at [facility] Metallic Hardware/An chor Left: Ankle SYNTHES-STRATEC 204.838 / / [id number] L2021 Imp Scr Syn Can 4.0x40mm Long Thrd Ss 207.740 - [id number] Implanted:Qty: 1 on 10/24/2020 by Quentin Pritchett MD at [facility] Metallic Hardware/An chor Left: Ankle SYNTHES-STRATEC 207.740 / / [id number] L2021 Imp Wire Margarita 0.045x4 78.2020 - [id number] Implanted:Qty: 1 on 10/24/2020 by Quentin Pritchett MD at [facility] Wire Left: Ankle G SOURCE 78.202 / / 4.0mm Ti Locking Screww/T25 Implanted:Qty: 1 on 01/16/2014 by Bayron Can MD at [facility] Left: Humerus SYNTHES 08/27/2019 04.005.4 44S / / [id number] 4.5mm Ti Multiloc Screw 42mm Implanted:Qty: 1 on 01/16/2014 by Bayron Can MD at [facility] Left: Humerus SYNTHES 03/28/2022 04.019.0 42S / / [id number] 4.5mm Ti Mulitloc Screw 38mm Implanted:Qty: 1 on 01/16/2014 by Bayron Can MD at [facility] Left: Humerus SYNTHES 02/25/2022 04.019.0 38S / / [id number] 4.0mm Ti Locking Screw 24mm Implanted:Qty: 1 on 01/16/2014 by Bayron Can MD at [facility] Left: Humerus SYNTHES 08/26/2022 04.005.4 14S / / [id number] 4.0mm Ti Locking Screw 26mm Implanted:Qty: 1 on 01/16/2014 by Bayron Can MD at [facility] Left: Humerus SYNTHES 12/26/2021 04.005.4 16S / / [id number] Multiloc End Cap Implanted:Qty: 1 on 01/16/2014 by Bayron Can MD at [facility] Left: Humerus SYNTHES 11/26/2022 04.019.0 00S / / [id number] 4.5mmti Multiloc Screw 38mm Implanted:Qty: 1 on 01/16/2014 by Bayron Can MD at [facility] Left: Humerus SYNTHES 02/25/2023 04.019.0 38S / / [id number] 3.5mm Lcp Hook Plate Implanted:Qty: 1 on 10/24/2020 by Quentin Pritchett MD at [facility] Left: Ankle SYNTHES 02.113.1 03S / / [id number] 2.7mm/3.5mm Lcp Posterolateral Distal Fibula Plates Implanted:Qty: 1 on 10/24/2020 by Quentin Pritchett MD at [facility] Left: Ankle SYNTHES 02.112.1 09 / / [id number] Procedures Procedure Name Priority Date/Time Associated [...] PANEL (BFP) Routine 02/24/2021 3:3 5 PM PROOF LOAD MECHANIC Mixed hyperlipidemia MA DIAGNOSTIC BILATERAL W/ JESSE Routine 12/09/2017 THINPREP PAP RFLX HPV MRNA E6/E7 ([facility]) Routine 03/04/2017 3:13 PM PROOF LOAD MECHANIC Encounter for gynecological examination without abnormal finding HEPATITIS C ANTIBODY Routine 04/07/2016 3:32 PM PROOF LOAD MECHANIC Need for hepatitis C screening test DRUG ABUSE SCREEN 8 URINE (UR) STAT 01/26/2006 2:35 PM PROOF LOAD MECHANIC from Last 3 Months or Most Recently [...] Mao MD LAB - BLOOD ORDE ALAN [facility] Organization Address City/State/ZIP Co de Phone Number RH LABORATORY [facility] [address] [facility] Lab (1st floor, no room number) [place] [address], [facility] * (ABNORMAL) Alcohol level blood (06/11/2023 8:53 PM CDT) Only the most recent of2 resultswithin the time period is included. Alcohol ethyl 0.35(HH) <=0.01 g/dL 06/11/2023 9:38 PM CDT RH LABORATORY Blood STRUCTURE OF RIGHT HAND / Unknown Venipuncture / Unknown 06/11/2023 8:53 PM CDT 06/11/2023 9:00 PM CDT Kaushal Mao MD LAB - BLOOD YINKA PHILLIPS RH LABORATORY [facility] [address] Lab (1st floor, no room number) [place] [address] * (ABNORMAL) Basic metabolic panel (BMP) [...] MD LAB - BLOOD YINKA PHILLIPS LABORATORY [facility] [address] Lab (1st floor, no room number) [place] [address], [facility] * (ABNORMAL) UA with Microscopic reflex [...] mg/dL 06/06/2023 1:53 PM CDT LABORATORY Specific [place] Urine 1.020 1.003 - 1.035 06/06/2023 1:53 [...] DO LAB - URINE ORDERABL ES LABORATORY [facility] Lab [address] [facility] Lab (1st floor, no room number) [place] [address] * (ABNORMAL) Urine Culture (06/06/2023 1:37 [...] coli Cefazolin JANICE <=4 ug/mL: Susceptible Comment:Cefazolin OK C breakpoints are for the treatment of [...] - MICRO GENERAL ORDERABLES UU IDD LABORATORY [facility] Inf. Diseases Diag. Lab [address] [facility], [address] [place] [address] * XR Pelvis w Hip Left 1 View (06/06/2023 1:01 PM CDT) Anatomical Region Laterality Modality Abdomen/Pelvis Left Digital Radiogra phy Impressions 06/06/2023 1:16 PM CDT IMPRESSION: No acute fracture or malalignment. Mild degenerative changes throughout the pelvis and lower lumbar spine. Osteopenia. JAZIEL SANDOVAL MD SYSTEM ID: ??[id number] Narrative 06/06/2023 1:16 PM CDT XR PELVIS [...] spine. Osteopenia. JAZIEL SANDOVAL MD SYSTEM ID: [id number] Kimmy Cisneros DO IMG DIAGNOSTIC IMAGI NG [...] aneurysm coiling. NAIMA OCAMPO MD SYSTEM ID: ??[id number] Narrative 06/06/2023 12:41 PM CDT EXAM: CT HEAD W/O CONTRAST ??06/06/2023 12:27 PM HISTORY: ??fall ?? COMPARISON: ??Head CT 07/08/2015 TECHNIQUE: Using multidetector thin collimation helical acquisition technique, axial, coronal and sagittal CT images from the skull base to the vertex were obtained without intravenous contrast. Public Safety Dispatcher (topogram) image(s) also obtained and reviewed. Dose [...] the vertex were obtained without intravenous contrast. Public Safety Dispatcher (topogram) image(s) also obtained and reviewed. Dose [...] aneurysm coiling. NAIMA OCAMPO MD SYSTEM ID: [id number] Kimmy Cisneros DO IMG CT ORDERABLES * [...] Atrial Rate 133 BPM RADIOLOG Y RESULTS MO Interval 112 ms RADIOLOG Y RESULTS QRS Duration 72 ms RADIOLO GY RESULTS QT 408 ms RADIOLOGY RESULTS QTc 602 ms RADIOLOGY RESULTS P [place] 27 degrees RADIOLOGY RESULTS R AXIS 70 degrees RADIOLOGY RESULTS T [place] 31 degrees RADIOLOGY RESULTS Interpretation ECG Sinus [...] Confirmed by - EMERGENCY ROOM, PHYSICIAN ([id number]), electronic news gathering editor Aureliano Castellanos ([id number]) on 06/06/2023 3:26:20 PM RADIOLOGY RESULTS 06/06/2023 11:1 4 AM CDT 06/06/2023 3:26 PM CDT Kimmy Cisneros DO ECG ORDERABLES RADIOLOGY RESULTS * Extra Green Top ([place] Heparin) ON ICE (06/06/2023 11:04 AM CDT) Hold Specimen [facility] 06/06/2023 12:32 PM CDT RH LABORATORY Blood VENOUS LINE / Unknown Venipuncture / Unknown 06/06/2023 11:04 AM CDT 06/06/2023 11:17 AM CDT Kimmy Cisneros DO LAB - BLOOD ORDERABL ES Performing Organization Address City/[facility]/ZIP Co de Phone Number [facility] Lab [address] Lab (1st floor, no room number) [address] * Extra Blood Culture Bottle (06/06/2023 11:04 AM CDT) Hold Specimen [facility] 06/06/2023 12:32 PM CDT RH LABORATORY Blood VENOUS LINE / Unknown Venipuncture / Unknown 06/06/2023 11:04 AM CDT 06/06/2023 11:17 AM CDT Kimmy Cisneros DO LAB - BLOOD ORDERABL ES Performing Organization Address [facility]/ZIP Co de Phone Number [facility] Lab [address] Lab (1st floor, no room number) [address] [place] [address] * Extra Red Top Tube (06/06/2023 11:04 AM CDT) Hold Specimen [facility] 06/06/2023 12:32 PM CDT RH LABORATORY Blood VENOUS LINE / Unknown Venipuncture / Unknown 06/06/2023 11:04 AM CDT 06/06/2023 11:17 AM CDT Kimmy Cisneros DO LAB - BLOOD ORDERABL ES [facility] Lab [address] Lab (1st floor, no room number) [place] [address] * Extra Blue Top Tube (06/06/2023 11:04 AM CDT) Hold Specimen [facility] 06/06/2023 12:32 PM CDT LABORATORY Blood VENOUS LINE / Unknown Venipuncture / Unknown 06/06/2023 11:04 AM CDT 06/06/2023 11:17 AM CDT Kimmy Cisneros DO LAB - BLOOD ORDERABL ES LABORATORY [facility] Care Lab [address] Lab (1st floor, no room number) [place] [address] * Troponin T, High Sensitivity (06/06/2023 11:04 AM CDT) [facility] Troponin T, High Sensitivity 12 <=14 [...] DO LAB - BLOOD ORDERABL ES LABORATORY [facility] [address] Lab (1st floor, no room number) [place] [phone] * Nt probnp inpatient (BNP) (06/06/2023 11:04 AM CDT) [facility] N terminal Pro BNP Inpatient 64 [...] - BLOOD ORDERABL ES Performing Organization Address City/[facility]/ZIP Co de Phone Number [facility] Lab [address] Lab (1st floor, no room number) [place] [phone] * Magnesium (06/06/2023 11:04 AM CDT) [facility] Magnesium 1.8 1.7 - 2.3 mg/dL 06/06/2023 12:07 PM CDT LABORATORY Blood VENOUS LINE / Unknown Venipuncture / Unknown 06/06/2023 11:04 AM CDT 06/06/2023 11:17 AM CDT Kimmy Cisneros LAB - BLOOD ORDERABL ES [facility] Care Lab [address] Lab (1st floor, no room number) [place] [phone] * (ABNORMAL) Comprehensive metabolic panel [...] - BLOOD ORDERABL ES Performing Organization Address City/[facility]/ZIP Co de Phone Number [facility] Lab [address] Lab (1st floor, no room number) [address] * CK total (06/06/2023 11:04 AM CDT) CK 83 26 - 192 U/L 06/06/2023 1:07 PM CDT RH LABORATORY Blood VENOUS LINE / Unknown Venipuncture / Unknown 06/06/2023 11:04 AM CDT 06/06/2023 11:17 AM CDT Kimmy Cisneros LAB - BLOOD ORDERABL ES [facility] Lab [address] Lab (1st floor, no room number) [address] * (ABNORMAL) Lipid Panel (BFP) (02/24/2021 3:35 PM PROOF LOAD MECHANIC) Cholesterol 307(A) 0 - 199 mg/dL BFP INTERNAL Triglycerides 369(A) 0 - 149 mg/dL B[facility] INTERNAL HDL Cholesterol 108 40 - 150 mg/dL [facility] INTERNAL LDL Cholesterol Direct 125 0 - 130 mg/dL [facility] INTERNAL Cholesterol/HDL Ratio 3 0 - 5 BFP INTERNAL Blood 02/24/2021 3:35 PM PROOF LOAD MECHANIC Alek Jones MD LAB - [facility] BLOOD LABS BFP INTERNAL * MA Diagnostic Bilateral w/Jesse (12/09/2017) MAMMOGRAM Anatomical Region Laterality Modality Breast Bilateral Other Narrative 12/09/2017 [facility] Phone: [phone] * Fax: [phone] [address] [place] [address] Age: 62 Y Dept No.: [id number] LEO MUELLER : 1955 Chart # Gender: F Req. Phys: Alek Jones MD Clinic MRN: Clinic: [facility] Acc#: [id number] Exam: MAMMOGRAM SCREENING JESSE BILATERAL Exam Date: [...] HPV (mRNA E6/E7){HPV-REFLEX} ([facility]) (03/04/2017 3:13 PM PROOF LOAD MECHANIC) Clinical History None given [facility] [...] Comment:Negative for intraep ithelial lesion or malignancy. Director Of In Service Education: SEE COMMENT [facility] Comment: ERP, CT(ASCP) CT Screening location: [address] ??[id number] Cervical swab (specimen) 03/04/2017 3:13 PM PROOF LOAD MECHANIC 03/05/2017 2:58 AM PROOF LOAD MECHANIC Narrative Resulting Agency Comment Performing Organization Information: ? [place] ? [facility] ? [address] [place] [address] ? Lars Calderon M.D. Alek Jones MD LAB - NON-[facility] NON-BLOOD Performing Organization Address [facility] Co de Phone Number [employer] [facility] [address] [place] [address] * Hepatits C antibody ([facility]) (04/07/2016 3:32 PM PROOF LOAD MECHANIC) HCV Antibody NON-REACTI VE NON-REACTI VE [facility] SIGNAL TO CUT OFF - [facility] 0.03 <1.00 [facility] Blood specimen (specimen) 04/07/2016 3:32 PM PROOF LOAD MECHANIC 04/08/2016 3:37 AM PROOF LOAD MECHANIC Narrative Resulting Agency Comment Performing Organization Information: ? [place] ? [facility] ? [address] [place] [address] ? Lars Calderon M.D. Alek Jones MD LAB - BLOOD O RDERABLES Performing Organization Address City/[facility]/ZIP Co de Phone Number [facility] [address] [place] [address] * (ABNORMAL) Drug abuse screen 8 urine (UR) (01/26/2006 2:35 PM PROOF LOAD MECHANIC) Amphetamine Qual Urine Negative NEG MISYS Ethanol Qual Urine Negative NEG MISYS Opiates Qualitative Urine Positive(A) NEG MISYS PCP Qual Urine Negative NEG MISYS Benzodiazepine Qual Urine Negative NEG MISYS Barbiturates Qual Urine Negative NEG MISYS Cocaine Qual Urine Negative NEG MISYS Cannabinoids Qual Urine Negative NEG MISYS 01/26/2006 2:35 PM PROOF LOAD MECHANIC 01/26/2006 2:25 PM PROOF LOAD MECHANIC Russell Trinidad MD LAB - URINE ORDERABLES Performing Organization Address City/[facility] Co de Phone Number MISYS from Last 3 Months or Most Recently Relevant to Health Maintenance Advance Directives For more information, please contact: [phone] * Full Code (Latest Code Status on [...] 5:45 PM 01/17/2014 4:33 PM Care Teams Analytics Director Relationship Specialty [place] [address] [facility] [place] [place] [address] PCP - General Family Medicine 01/12/22 Alek Jones MD [address] [address] Assigned PCP 03/01/21 Brayden Du MD [address] [facility] [id number] [place] [address] Neurology 05/06/22
--- OUTSIDE RECORDS SUMMARY | 2023-07-14 06:19 | XMS_ITS | Encounter Summary ---
Author Name Unknown Organization [place] Address [address] [place] [address]. [place] [address] Care Team Providers Care Information Systems Director Name Role Phone Rose Pelletier TRESTLE MAINTERNANCE LABORER Unavailable [phone] Alek Jones MD Primary Care Provide r Alek Jones MD Unavailable [phone] Alek Jones MD Unavailable [phone] Alexa Simon PA-C Unavailable + [phone] Alexa Simon PA-C Unavailable + [phone] Alek Jones MD Unavailable [phone] [place]([facility]), [facility] Unavailable Alexa Simon PA-C Unavailable + [phone] Alek Jones MD Unavailable [phone] Neelima Shukla DO Primary Care Provider [phone] Brayden Du MD Unavailable Encounter Details Date Type Department Care Team (Late st Contact Info) Description 12/19/2017 MyC Medical Advice [facility] [address] [place] [address] Ana Mueller MA Social History Tobacco Use Types Packs/Day Years Used Date Smoking Tobacco: Former Smokeless Tobacco: Never Alcohol Use Standard Drinks/Week Comments No 0 (1 standard drink = 0.6 oz pur e alcohol) Sex and Gender Information Value Date Recorded Sex Assigned at Female 02/28/2021 1:24 PM FINANCE PROFESSOR Gender Identity Female 02/28/2021 1:23 PM FINANCE PROFESSOR Sexual Orientation Straight 02/28/2021 1: 20 PM FINANCE PROFESSOR documented as of this encounter Plan [...] documented as of this encounter Care Teams Information Systems Director Relationship Specialty Start Date End Date Alek Jones MD [address], [address] [address] PCP - General Family Practice 03/18/16 01/11/22 [place] [address] [place] [address] PCP - General Family Medicine 01/12/22 Rose Pelletier, [facility] Music Librarian 09/19/14 07/10/20 Alek Jones MD [address], [address] [address] Assigned PCP 04/08/19 05/24/20 Alek Jones MD [address] , [address] [address] Assigned PCP 12/25/17 03/31/19 Alexa Simon PA-C [address], [address] [address] Assigned PCP 04/01/19 04/07/19 Alexa Simon PA-C [address] , [address] [address] Assigned PCP 05/25/20 06/07/20 Alek Jones MD [address] , [address] [address] Assigned PCP 06/08/20 02/14/21 [place]([facility]), [address] [phone] Care Home Facility 10/27/20 11/14/20 Alexa Simon PA-C [address] , [address] [address] Assigned PCP 02/15/21 02/28/21 Alek Jones MD [address] , [address] [address] Assigned PCP 03/01/21 Brayden Du MD [address] [place] [place] [address] [id number] [place] [address] MD [place] 05/06/22 documented as of this encounter
--- OUTSIDE RECORDS SUMMARY | 2023-07-14 06:19 | XMS_ITS | Encounter Summary ---
Author Name Unknown Organization [place] Address [address] [place] [address] Care Team Providers Care Chart Computer Name Role Phone Alek Jones MD Primary Care Provide r Alek Jones MD Unavailable [phone] [place] Unavailable Alexa Simon PA-C Unavailable + [phone] Alek Jones MD Unavailable [phone] Neelima Shukla DO Primary Care Provider [phone] Brayden Du MD Unavailable Encounter Details Date [...] Sex Assigned at Female 02/28/2021 1:24 PM METER INSTALLER Gender Identity Female 02/28/2021 1:23 PM METER INSTALLER Sexual Orientation Straight 02/28/2021 1: 20 PM METER INSTALLER documented as of this encounter Plan of Treatment Not on file documented as of this encounter Visit Diagnoses Not on filedocumented in this encounter Additional Health Concerns Infection Onset Date Last Indicated Resolved Time 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/07/2020 11/07/2020 11/09/2020 1:31 AM CDT Assessment Noted Time PHQ-9 Depression Total Score: 11 021 3:32 PM METER INSTALLER documented as of this encounter Care Teams Chart Computer Relationship Specialty Start Date End Date Alek Jones MD [address], [address] [address] PCP - General Family Practice 03/18/16 01/11/22 [place] [address] [facility] [place] [address] PCP - General Family Medicine 01/12/22 Alek Jonse MD [address] , [address] [address] Assigned PCP 06/08/20 02/14/21 [place] [address] Retirement Facility 10/27/20 11/14/20 Alexa Simon PA-C [address], [address] [address] Assigned PCP 02/15/21 02/28/21 Alek Jones MD [address], [address] [address] Assigned PCP 03/01/21 ManBrayden mancuso MD [address] [facility] [id number] [place] [address] Neurology 05/06/22 documented as of this encounter
--- OUTSIDE RECORDS SUMMARY | 2023-07-14 06:19 | XMS_ITS | Encounter Summary ---
Author Name Unknown Organization [place] Address [facility] [place] [address] Care Team Providers Care Medical Device Name Role Phone Jeramie Sterling MD Primary Care Provider Elodia Rose Oliveira Marcie CHLORINE PLANT OPERATOR Unavailable [phone] Estela Dacosta Primary Care Provi nnamdi Kelley Love MD Primary Care Provider [phone] Alek Jones MD Primary Care Provide r Alek Jones MD Unavailable [phone] Alek Jones MD Unavailable [phone] Alexa Simon PA-C Unavailable + [phone] Alexa Simon PA-C Unavailable + [phone] Alek Jones MD Unavailable +[phone] [place](Fgs[facility] Unavailable Alexa Simon PA-C Unavailable + [phone] Alek Jones MD Unavailable +[phone] Neelima Shukla DO Primary Care Provider [phone] Brayden Du MD Unavailable Reason for Visit * Reason Comments Medication Refill Encounter Details Date Type Department Care Team (Late st Contact Info) Description 02/17/2015 Refill [facility] Phys[facility] [address] [place] [address] [address] [place] [address] Jeramie Sterling MD XXXX RESIGNED/INACTIVE XXXX Medication Refill Social History Tobacco Use Types Packs/Day Years Used Date Smoking Tobacco: Former Smokeless Tobacco: Never Alcohol Use Standard Drinks/Week Comments No 0 (1 standard drink = 0.6 oz pur e alcohol) Sex and Gender Information Value Date Recorded Sex Assigned at Female 02/28/2021 1:24 PM CLINICAL RESEARCH NURSE Gender Identity Female 02/28/2021 1:23 PM CLINICAL RESEARCH NURSE Sexual Orientation Straight 02/28/2021 1: 20 PM CLINICAL RESEARCH NURSE documented as of this encounter Miscellaneous Notes [...] need to see her? Please fax or adviseAan [phone] (home) none (work) ICAL RESEARCH NURSE documented in this encounter Plan of Treatment Not on file documented as of this encounter Visit Diagnoses Diagnosis Internal hemorrhoids- Primary Internal hemorrhoids without mention of complication documented in this encounter Additional Health Concerns Infection Onset Date Last Indicated Resolved Time 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/07/2020 11/07/2020 11/09/2020 1:31 AM CDT documented as of this encounter Care Teams Medical Device Relationship Specialty Start Date End Date Jeramie Sterling MD PCP - General Family Practice 07/24/14 11/09/15 Estela Dacosta PA PCP - General Family Practice 11/10/15 12/17/15 Kelley Love MD [address] , [address] [address] PCP - General Family Practice 12/18/15 03/17/16 Alek Jones MD [address], [address] [address] PCP - General Family Practice 03/18/16 01/11/22 [place] [address] [place] [address] PCP - General Family Medicine 01/12/22 Rose Pelletier, [facility] Coin Machine Assembler 09/19/14 07/10/20 Alek Jones MD [address], [address] [address] Assigned PCP 04/08/19 05/24/20 Alek Jones MD [address], [address] [address] Assigned PCP 12/25/17 03/31/19 Alexa Simon PA-C [address], [address] [address] Assigned PCP 04/01/19 04/07/19 Alexa Simon PA-C [address], [address] [address] Assigned PCP 05/25/20 06/07/20 Alek Jones MD [address], [address] [address] Assigned PCP 06/08/20 02/14/21 Center(Fgs), [facility] [address] [place] [address] Fpc Facility 10/27/20 11/14/20 Alexa Simon PA-C [address] [address] [place] [address] Assigned PCP 02/15/21 02/28/21 Alek Jones MD [address] , [address] [address] Assigned PCP 03/01/21 Brayden Du MD [address] [place] [address] [id number] [place] [address] MD [place] 05/06/22 documented as of this encounter
--- OUTSIDE RECORDS SUMMARY | 2023-07-14 06:19 | XMS_ITS | Encounter Summary ---
Author Name Unknown Organization [place] Address [address] [place] [address] Care Team Providers Care Rn Mobile Name Role Phone Rose Pelletier STEAM HEATING INSTALLER Unavailable [phone] Alek Jones MD Primary Care Provide r Alek Jones MD Unavailable [phone] [place](Fgs)[facility] Unavailable Alexa Simon PA-C Unavailable + [phone] Alek Jones MD Unavailable +[phone] Neelima Shukla DO Primary Care Provider [phone] Brayden Du MD Unavailable Encounter Details Date [...] Sex Assigned at Female 02/28/2021 1:24 PM GUIDANCE AND CONTROL SYSTEM ENGINEER Gender Identity Female 02/28/2021 1:23 PM GUIDANCE AND CONTROL SYSTEM ENGINEER Sexual Orientation Straight 02/28/2021 1: 20 PM GUIDANCE AND CONTROL SYSTEM ENGINEER documented as of this encounter Plan of Treatment Not on file documented as of this encounter Visit Diagnoses Not on filedocumented in this encounter Additional Health Concerns Infection Onset Date Last Indicated Resolved Time 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/07/2020 11/07/2020 11/09/2020 1:31 AM CDT Assessment Noted Time PHQ-9 Depression Total Score: 11 021 3:32 PM GUIDANCE AND CONTROL SYSTEM ENGINEER documented as of this encounter Care Teams Rn Mobile Relationship Specialty Start Date End Date Alke Jones MD [address] , [address] [address] PCP - General Family Practice 03/18/16 01/11/22 [place] [address] [place] [address] PCP - General Family Medicine 01/12/22 Rose Pelletier, [facility] Newspaper Carrier 09/19/14 07/10/20 Alek Jones MD [address] , [address] [address] Assigned PCP 06/08/20 02/14/21 [place](Fgs), [address] [id number] Shelter Facility 10/27/20 11/14/20 Alexa Simon PA-C [address] , [address] [address] Assigned PCP 02/15/21 02/28/21 Alek Jones MD [address], [id number] [place] [address] Assigned PCP 03/01/21 Brayden Du MD [address] [facility] [id number] [place] [address] Neurology 05/06/22 documented as of this encounter
--- OUTSIDE RECORDS SUMMARY | 2023-07-14 06:19 | XMS_ITS | Encounter Summary ---
Author Name Unknown Organization [place] Address [address] [facility] [place] [address] Care Team Providers Care City Plant Supervisor Name Role Phone Jeramie Sterling MD Primary Care Provider Elodia Rose Oliveira Marcie GLASS BLOWING LATHE OPERATOR Unavailable [phone] Estela Dacosta Primary Care Provi nnamdi Kelley Love MD Primary Care Provider [phone] Alek Jones MD Primary Care Provide r Alek Jones MD Unavailable +[phone] Alek Jones MD Unavailable [phone] Alexa Simon PA-C Unavailable + [phone] Alexa Simon PA-C Unavailable + [phone] Alek Jones MD Unavailable +[phone] [place](Fgs)[facility] Unavailable Alexa Simon PA-C Unavailable + [phone] Alek Jones MD Unavailable +[phone] Neelima Shukla DO Primary Care Provider [phone] Brayden Du MD Unavailable Reason for Visit * Reason Comments Other Encounter Details Date Type Department Care Team ([facility] Contact Info) Description 08/02/2014 Telephone [facility] Intake [address] [place] [address] Generic, Behavioral Intake, Social History Tobacco Use Types Packs/Day Years Used Date Smoking Tobacco: Former Smokeless Tobacco: Never Alcohol Use Standard Drinks/Week Comments No 0 (1 standard drink = 0.6 oz pur e alcohol) Sex and Gender Information Value Date Recorded Sex Assigned at Female 02/28/2021 1:24 PM LABEL PRINTING MACHINIST Gender Identity Female 02/28/2021 1:23 PM LABEL PRINTING MACHINIST Sexual Orientation Straight 02/28/2021 1: 20 PM LABEL PRINTING MACHINIST documented as of this encounter Miscellaneous Notes * Telephone Encounter - Chayo Fraire - 08/02/2014 1:57 PM CDT ----- Message from Mihaela Gillette sent at 08/02/2014 12:47 PM CDT ----- Regarding: Seniors DOP referral I will fax [facility] Courtesy Rule 25 and ask for them to contact [facility] site with authorization. * Telephone Encounter - [...] documented as of this encounter Care Teams City Plant Supervisor Relationship Specialty Start Date End Date Jeramie Sterling MD PCP - General Family Practice 07/24/14 11/09/15 Estela Dacosta PA PCP - General Family Practice 11/10/15 12/17/15 Kelley Love MD [address] , [address] [address] PCP - General Family Practice 12/18/15 03/17/16 Alek Jones MD [address] , [address] [address] PCP - General Family Practice 03/18/16 01/11/22 [place] [address] [place] [address] PCP - General Family Medicine 01/12/22 Rose Pelletier, [facility] Supervising Nurse 09/19/14 07/10/20 Alek Jones MD [address] , [address] [address] Assigned PCP 04/08/19 05/24/20 Alek Jones MD [address] , [address] [address] Assigned PCP 12/25/17 03/31/19 Alexa Simon PA-C [address] , [address] [address] Assigned PCP 04/01/19 04/07/19 Alexa Simon PA-C [address] [address] Assigned PCP 05/25/20 06/07/20 Alek Jones MD [address], [address] [address] Assigned PCP 06/08/20 02/14/21 [place]), [address] [phone] Prison Facility 10/27/20 11/14/20 Alexa Simon PA-C [address] , [address] [address] Assigned PCP 02/15/21 02/28/21 Alek Jones MD [address] [address] Assigned PCP 03/01/21 Brayden Du MD [address] [place] [address] [id number] [address] MD Reynolds 05/06/22 documented as of this encounter
--- OUTSIDE RECORDS SUMMARY | 2023-07-14 06:19 | XMS_ITS | Encounter Summary ---
Author Name Unknown Organization [place] Address [address] [place] [address]. [place] [address] Care Team Providers Care Ship Engines Operating Engineer Name Role Phone Rose Pelletier PHOTOGRAPHIC ENGINEER Unavailable [phone] Alek Jones MD Primary Care Provide r Alek Jones MD Unavailable [phone] Alek Jones MD Unavailable [phone] Alexa Simon PA-C Unavailable + [phone] Alexa Simon PA-C Unavailable + [phone] Alek Jones MD Unavailable +[phone] [place](Fgs), [facility] Unavailable Alexa Simon PA-C Unavailable + [phone] Alek Jones MD Unavailable +[phone] Neelima Shukla DO Primary Care Provider [phone] Brayden Du MD Unavailable Encounter Details Date Type Department Care Team (Late st Contact Info) Description 11/10/2016 MyC Medical Advice [facility] Physicians [address] [facility] [address] [place] [address] Ana Mueller MA Social History Tobacco Use Types Packs/Day Years Used Date Smoking Tobacco: Former Smokeless Tobacco: Never Alcohol Use Standard Drinks/Week Comments No 0 (1 standard drink = 0.6 oz pur e alcohol) Sex and Gender Information Value Date Recorded Sex Assigned at Female 02/28/2021 1:24 PM COMMERCIAL PHOTOGRAPHER Gender Identity Female 02/28/2021 1:23 PM COMMERCIAL PHOTOGRAPHER Sexual Orientation Straight 02/28/2021 1: 20 PM COMMERCIAL PHOTOGRAPHER documented as of this encounter Plan of Treatment Not on file documented as of this encounter Visit Diagnoses Not on filedocumented in this encounter Additional Health Concerns Infection Onset Date Last Indicated Resolved Time 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/07/2020 11/07/2020 11/09/2020 1:31 AM CDT Assessment Noted Time PHQ-9 Depression Total Score: 13 017 7:16 AM COMMERCIAL PHOTOGRAPHER documented as of this encounter Care Teams Ship Engines Operating Engineer Relationship Specialty Start Date End Date Alek Jones MD [address] , [address] [address] PCP - General Family Practice 03/18/16 01/11/22 [place] [address] [place] [address] PCP - General Family Medicine 01/12/22 Rose Pelletier, [facility] Overseer Kosher Kitchen 09/19/14 07/10/20 Alek Jones MD [address] , [address] [address] Assigned PCP 04/08/19 05/24/20 Alek Jones MD [address] , [address] [address] Assigned PCP 12/25/17 03/31/19 Alexa Simon PA-C [address] , [address] [address] Assigned PCP 04/01/19 04/07/19 Alexa Simon PA-C [address], [address] [address] Assigned PCP 05/25/20 06/07/20 Alek Jones MD [address], [address] [address] Assigned PCP 06/08/20 02/14/21 [place](Fgs), [address] [address] Shelter Facility 10/27/20 11/14/20 Alexa Simon PA-C [address], [address] [address] Assigned PCP 02/15/21 02/28/21 Alek Jones MD [address], [address] [address] Assigned PCP 03/01/21 Brayden Du MD [address] [place] [address] [id number] [place] [address] MD Reynolds 05/06/22 documented as of this encounter
--- OUTSIDE RECORDS SUMMARY | 2023-07-14 06:19 | XMS_ITS | Encounter Summary ---
Author Name Unknown Organization [place] Address [facility] [place] [address] Care Team Providers Care Assistant Store Manager Operations Name Role Phone Jeramie Sterling MD Primary Care Provider Elodia Rose Oliveira Marcie CHIEF LIBRARIAN EXTENSION DEPARTMENT Unavailable [phone] Estela Dacosta Primary Care Provi nnamdi Kelley Love MD Primary Care Provider [phone] Alek Jones MD Primary Care Provide r Alek Jones MD Unavailable [phone] Alek Jones MD Unavailable [phone] Alexa Simon PA-C Unavailable + [phone] Alexa Simon PA-C Unavailable + [phone] Alek Jones MD Unavailable +[phone] [place](Fgs)[facility] Unavailable Alexa Simon PA-C Unavailable + [phone] Alek Jones MD Unavailable [phone] Neelima Shukla DO Primary Care Provider [phone] Brayden Du MD Unavailable Reason for Visit * Reason Comments Medication Refill Encounter Details Date Type Department Care Team (Late st Contact Info) Description 09/13/2014 Refill [facility] Physicians [address] [place] [address] [address] [place] [address] Jeramie Sterling MD XXXX RESIGNED/INACTIVE XXXX Medication Refill Social History Tobacco Use Types Packs/Day Years Used Date Smoking Tobacco: Former Smokeless Tobacco: Never Alcohol Use Standard Drinks/Week Comments No 0 (1 standard drink = 0.6 oz pur e alcohol) Sex and Gender Information Value Date Recorded Sex Assigned at Female 02/28/2021 1:24 PM SERVICE DESK SPECIALIST Gender Identity Female 02/28/2021 1:23 PM SERVICE DESK SPECIALIST Sexual Orientation Straight 02/28/2021 1: 20 PM SERVICE DESK SPECIALIST documented as of this encounter Miscellaneous Notes [...] documented as of this encounter Care Teams Assistant Store Manager Operations Relationship Specialty Start Date End Date Jeramie Sterling MD PCP - General Family Practice 07/24/14 11/09/15 Estela Dacosta PA PCP - General Family Practice 11/10/15 12/17/15 Kelley Love MD [address] , [address] [address] PCP - General Family Practice 12/18/15 03/17/16 Alek Jones MD [address], [address] [address] PCP - General Family Practice 03/18/16 01/11/22 [place] [address] [place] [address] PCP - General Family Medicine 01/12/22 Rose Pelletier, [facility] News Department Intern 09/19/14 07/10/20 Alek Jones MD [address], [address] [address] Assigned PCP 04/08/19 05/24/20 Alek Jones MD [address], [address] [address] Assigned PCP 12/25/17 03/31/19 Alexa Simon PA-C [address], [address] [address] Assigned PCP 04/01/19 04/07/19 Alexa Simon PA-C [address], [address] [address] Assigned PCP 05/25/20 06/07/20 Alek Jones MD [address], [address] [address] Assigned PCP 06/08/20 02/14/21 Center(Fgs), [facility] [address] [place] [address] Fdc Facility 10/27/20 11/14/20 Alexa Simon PA-C [address] [address] [place], [place] [address] Assigned PCP 02/15/21 02/28/21 Alek Jones MD [address] , [id number] [place], [place] [address] Assigned PCP 03/01/21 Brayden Du MD [address] [place] [address] [id number] [place] [address] MD Reynolds 05/06/22 documented as of this encounter
--- OUTSIDE RECORDS SUMMARY | 2023-07-14 06:19 | XMS_ITS | Encounter Summary ---
Author Name Unknown Organization [place] Address [address] [facility] [place] [address] Care Team Providers Care Radio Installer Automobile Name Role Phone Jeramie Sterling MD Primary Care Provider Elodia Rose Oliveira Marcie TECHNICAL CLERK Unavailable +[phone] Estela Dacosta Primary Care Provi nnamdi Kelley Love MD Primary Care Provider [phone] Alek Jones MD Primary Care Provide r Alek Jones MD Unavailable +[phone] Alek Jones MD Unavailable [phone] Alexa Simon PA-C Unavailable + [phone] Alexa Simon PA-C Unavailable + [phone] Alek Jones MD Unavailable +[phone] [place](Fgs)[facility] Unavailable Alexa Simon PA-C Unavailable + [phone] Alek Jones MD Unavailable [phone] Neelima Shukla DO Primary Care Provider [phone] Brayden Du MD Unavailable Reason for Visit * Reason Onset Date Comments MH/CD Inpatient 07/30/2014 Other Encounter Details Date Type Department Care Team ([facility] Contact Info) Description 07/30/2014 Telephone [facility] Intake [address] [place] [address] Generic, Behavioral MD Suleman MH/CD Inpatient; Social History Tobacco Use Types Packs/Day Years Used Date Smoking Tobacco: Former Smokeless Tobacco: Never Alcohol Use Standard Drinks/Week Comments No 0 (1 standard drink = 0.6 oz pur e alcohol) Sex and Gender Information Value Date Recorded Sex Assigned at Female 02/28/2021 1:24 PM ACCOUNT PLANNER Gender Identity Female 02/28/2021 1:23 PM ACCOUNT PLANNER Sexual Orientation Straight 02/28/2021 1: 20 PM ACCOUNT PLANNER documented as of this encounter Miscellaneous Notes * Telephone Encounter - Nino Flores, RN - 07/30/2014 3:09 PM CDT S: Patient presents to [facility] brought in by friends with a [...] and voluntary. R: Admit to station 3a, [facility] CD, [facility] accepts. documented in this encounter Plan of Treatment Not on file documented as of this encounter Visit Diagnoses Not on filedocumented in this encounter Additional Health Concerns Infection Onset Date Last Indicated Resolved Time 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/07/2020 11/07/2020 11/09/2020 1:31 AM CDT documented as of this encounter Care Teams Radio Installer Automobile Relationship Specialty Start Date End Date Jeramie Sterling MD PCP - General Family Practice 07/24/14 11/09/15 Estela Dacosta PA PCP - General Family Practice 11/10/15 12/17/15 Kelley Love MD [address], [address] [address] PCP - General Family Practice 12/18/15 03/17/16 Alek Jones MD [address], [address] [address] PCP - General Family Practice 03/18/16 01/11/22 [place] [address] [place] [address] PCP - General Family Medicine 01/12/22 Rose Pelletier [facility] Pharmaceutical Physician 09/19/14 07/10/20 Alek Jones MD [address], [address] [address] Assigned PCP 04/08/19 05/24/20 Alek Jones MD [address], [address] [address] Assigned PCP 12/25/17 03/31/19 Alexa Simon PA-C [address], [address] [address] Assigned PCP 04/01/19 04/07/19 Alexa Simon PA-C [address], [address] [address] Assigned PCP 05/25/20 06/07/20 Alek Jones MD [address] , [address] [address] Assigned PCP 06/08/20 02/14/21 [place](Fgs), [address] [phone] Intermediate Facility 10/27/20 11/14/20 Alexa Simon PA-C [address], [address] [address] Assigned PCP 02/15/21 02/28/21 Alek Jones MD [address], [address] [address] Assigned PCP 03/01/21 Brayden Du MD [address] [place] [address] [id number] [place] [address] MD Reynolds 05/06/22 documented as of this encounter
--- OUTSIDE RECORDS SUMMARY | 2023-07-14 06:19 | XMS_ITS | Clinical Summary ---
Author Name Unknown Organization [facility] Address [address] [place] [address] Care Team Providers Care Appointment Manager Name Role Phone Alek Jones MD Primary Care Provider [phone] Source Comments You are receiving this document as you are listed as the primary care provider,follow-up provider, or the patient has been referred to you for consultation.This is in compliance with the Medicare and[facility] Campus[facility] EHR Incentive Program,which states Providers who transition their patient to another setting of careor provider of care or refers their patient to another provider of care shouldprovide summary care record for each transition of care or referral. import2 Allergies Active Allergy Reactions Criticality Noted Date [...] on dilantin and sees neurology at [facility] Symptomatic menopausal or female climacteric sta mark 05/27/2009 Overview: LW Onset: 02/2008 ; Menopause Convulsions 12/23/2008 Overview: Seizure NOS Restless legs syndrome (RLS) 12/23/2008 Overview: Restless Leg Syndrome Insomnia 12/23/2008 Overview: Insomnia NOS Allergic rhinitis 12/23/2008 Overview: Rhinitis Allergic NOS Restless legs syndrome 07/11/2006 Overview: Restless Leg Syndrome Anxiety 04/01/2006 Insomnia 04/01/2006 Overview: Insomnia NOS Urinary incontinence 05/22/2004 Overview: LW Onset: 10Znb94 ; Incontinence Urinary NOS Disorder of bone and cartilage 05/22/2004 Overview: LW Onset: 85Hjf61 ; Osteopenia Migraine 03/08/2003 Overview: LW Onset: 85Hmk78 ; 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 LW Onset: 42Wqd03 ; Arteriovenous Malformation Depression, major, in remission [...] 72.1 kg (159 lb) 03/31/2020 2:15 PM CAN INSPECTOR Height 160 cm (5' 3) 03/31/2020 2:15 PM CAN INSPECTOR Body Mass Index 28.17 03/31/2020 2:15 PM CAN INSPECTOR Plan of Treatment Health Maintenance Due Date [...] BILAT W CAD Routine 06/01/2011 12:35 PM CAN INSPECTOR Routine gynecological examination LIPID PANEL & DIRECT LDL (IF NEEDED) Routine 04/15/2010 1:56 PM CAN INSPECTOR from Last 3 Months or Most Recently Relevant to Health Maintenance Results * (ABNORMAL) MM Mammogram Screening Bilat W CAD (06/01/2011 12:35 PM CAN INSPECTOR) Anatomical Region Laterality Modality Breast Bilateral Mammography Impressions 06/01/2011 2:31 PM CAN INSPECTOR IMPRESSION: RIGHT BREAST: Architectural distortion posteriorly. Spot compression and ultrasound are recommended at this time. LEFT BREAST: Negative, no evidence of malignancy. Normal interval follow-up is recommended in 12 months. OVERALL ASSESSMENT - CATEGORY 0 - INCOMPLETE: NEED ADDITIONAL IMAGING EVALUATION END OF IMPRESSION SJW Narrative 06/01/2011 2:31 PM CAN INSPECTOR Comparison is made to films from 11/27/2009 [...] and Direct LDL(If Needed) (04/15/2010 1:56 PM CAN INSPECTOR) Cholesterol 264(H) 0 - 200 mg/dL HP CONVERSION Triglycerides 87 0 - 149 mg/dL HP CONVERSION HDL Cholesterol 83 >39 mg/dL HP CONVERSION Cholesterol/HDL Ratio Screen 3.2 No normal range HP CONVERSION LDL Calculated 164(H) 19 - 130 mg/dL HP CONVERSION Hours Fasting 12 No normal range HP CONVERSION 04/15/2010 1:56 PM CAN INSPECTOR Deandra Webb MD LAB_1 HP CONVERSION from Last 3 Months or Most Recently Relevant to Health Maintenance Care Teams Appointment Manager Relationship Specialty Start Date End Date Alek Jones MD [address], [address] [address] PCP - General Family Practice 03/17/20
--- OUTSIDE RECORDS SUMMARY | 2023-07-14 06:19 | XMS_ITS | Encounter Summary ---
Author Name Unknown Organization [place] Address [facility] [place] [address] Care Team Providers Care Bit Setter Name Role Phone Jeramie Sterling MD Primary Care Provider Elodia Rose Oliveira Marcie CONE SEWER Unavailable [phone] Estela Dacosta Primary Care Provi nnamdi Kelley Love MD Primary Care Provider [phone] Alek Jones MD Primary Care Provide r Alek Jones MD Unavailable [phone] Alek Jones MD Unavailable [phone] Alexa Simon PA-C Unavailable + [phone] Alexa Simon PA-C Unavailable + [phone] Alek Jones MD Unavailable +[phone] [place] Unavailable Alxea Simon PA-C Unavailable + [phone] Alek Jones MD Unavailable [phone] Neelima Shukla DO Primary Care Provider [phone] Brayden Du MD Unavailable Reason for Visit * Reason Comments Medication Refill Encounter Details Date Type Department Care Team (Late st Contact Info) Description 02/18/2015 Refill [facility] [address] [place] [address] [address] [place] [address] Jeramie Sterling MD XXXX RESIGNED/INACTIVE XXXX Medication Refill Social History Tobacco Use Types Packs/Day Years Used Date Smoking Tobacco: Former Smokeless Tobacco: Never Alcohol Use Standard Drinks/Week Comments No 0 (1 standard drink = 0.6 oz pur e alcohol) Sex and Gender Information Value Date Recorded Sex Assigned at Female 02/28/2021 1:24 PM DIRECTOR OF STRATEGIC MARKETING Gender Identity Female 02/28/2021 1:23 PM DIRECTOR OF STRATEGIC MARKETING Sexual Orientation Straight 02/28/2021 1: 20 PM DIRECTOR OF STRATEGIC MARKETING documented as of this encounter Miscellaneous Notes * Telephone Encounter - Jeramie Sterling MD - 02/18/2015 11:54 AM DIRECTOR OF STRATEGIC MARKETING IS THIS A NEW MED, NO DX, HAVE WE RX IN PAST, ?? CTOR OF STRATEGIC MARKETING * Telephone Encounter - Deloris Eddy CMA - 02/18/2015 8:00 AM CST Pending Prescriptions: Disp Refills PROCTOZONE-HC 2.5 % rectal cream [Pharmac*30 g 0 Sig: INSERT 1 APPLICATION RECTALLY THREE TIMES DAILY FOR 10 DAYS You never prescribed this, are you willing to fill? Please associate dx code CTOR OF STRATEGIC MARKETING documented in this encounter Plan of Treatment Not on file documented as of this encounter Visit Diagnoses Not on filedocumented in this encounter Additional Health Concerns Infection Onset Date Last Indicated Resolved Time 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/07/2020 11/07/2020 11/09/2020 1:31 AM CDT documented as of this encounter Care Teams Bit Setter Relationship Specialty Start Date End Date Jeramie Sterling MD PCP - General Family Practice 07/24/14 11/09/15 Estela Dacosta PA PCP - General Family Practice 11/10/15 12/17/15 Kelley Love MD [address] , [address] [address] PCP - General Family Practice 12/18/15 03/17/16 Alek Jones MD [address] [address] PCP - General Family Practice 03/18/16 01/11/22 [place] [address] [place] [address] PCP - General Family Medicine 01/12/22 Rose Pelletier, [facility] Bank Runner 09/19/14 07/10/20 Alek Jones MD [address] [place] [address] Assigned PCP 04/08/19 05/24/20 Alek Jones MD [address] [place] [address] Assigned PCP 12/25/17 03/31/19 Alexa Simon PA-C [address], [address] [address] Assigned PCP 04/01/19 04/07/19 Alexa Simon PA-C [address], [address] [address] Assigned PCP 05/25/20 06/07/20 Alek Jones MD [address] [address] Assigned PCP 06/08/20 02/14/21 [place]), [address] [address] Longterm Facility 10/27/20 11/14/20 Alexa Simon PA-C [address] [address] Assigned PCP 02/15/21 02/28/21 Alek Jones MD [address] [address] Assigned PCP 03/01/21 Brayden Du MD [address] [place] [address] [id number] [place] [address] MD Reynolds 05/06/22 documented as of this encounter
--- OUTSIDE RECORDS SUMMARY | 2023-07-14 06:19 | XMS_ITS | Encounter Summary ---
Author Name Unknown Organization [place] Address [facility] [place] [address] Care Team Providers Care Lead Esthetician Name Role Phone Jeramie Sterling MD Primary Care Provider Elodia Rose Oliveira Marcie SHEETER HELPER Unavailable [phone] Estela Dacosta Primary Care Provi nnamdi Kelley Love MD Primary Care Provider [phone] Alek Jones MD Primary Care Provide r Alek Jones MD Unavailable [phone] Alek Jones MD Unavailable [phone] Alexa Simon PA-C Unavailable + [phone] Alexa Simon PA-C Unavailable + [phone] Alek Jones MD Unavailable +[phone] [place] Unavailable Alexa Simon PA-C Unavailable + [phone] Alek Jones MD Unavailable [phone] Neelima Shukla DO Primary Care Provider [phone] Brayden Du MD Unavailable Reason for Visit * Reason Comments Medication Refill Encounter Details Date Type Department Care Team (Late st Contact Info) Description 11/12/2014 Refill [facility] [address] [place] [address] [address] [place] [address] Jeramie Sterling MD XXXX RESIGNED/INACTIVE XXXX Medication Refill Social History Tobacco Use Types Packs/Day Years Used Date Smoking Tobacco: Former Smokeless Tobacco: Never Alcohol Use Standard Drinks/Week Comments No 0 (1 standard drink = 0.6 oz pur e alcohol) Sex and Gender Information Value Date Recorded Sex Assigned at Female 02/28/2021 1:24 PM ENGINEERING ASSOCIATE Gender Identity Female 02/28/2021 1:23 PM ENGINEERING ASSOCIATE Sexual Orientation Straight 02/28/2021 1: 20 PM ENGINEERING ASSOCIATE documented as of this encounter Miscellaneous Notes [...] documented as of this encounter Care Teams Lead Esthetician Relationship Specialty Start Date End Date Jeramie Sterling MD PCP - General Family Practice 07/24/14 11/09/15 Estela Dacosta PA PCP - General Family Practice 11/10/15 12/17/15 Kelley Love MD [address] [id number] PCP - General Family Practice 12/18/15 03/17/16 Alek Jones MD [address] [address] PCP - General Family Practice 03/18/16 01/11/22 [place] [address] [place] [address] PCP - General Family Medicine 01/12/22 Rose Pelletier, [facility] Machine Tester 09/19/14 07/10/20 Alek Jones MD [address], [address] [address] Assigned PCP 04/08/19 05/24/20 Alek Jones MD [address], [address] [address] Assigned PCP 12/25/17 03/31/19 Alexa Simon PA-C [address], [address] [address] Assigned PCP 04/01/19 04/07/19 Alexa Simon PA-C [address], [address] [address] Assigned PCP 05/25/20 06/07/20 Alek Jones MD [address], [address] [address] Assigned PCP 06/08/20 02/14/21 [place] [address] [phone] Skilled Nursing Facility 10/27/20 11/14/20 Alexa Simon PA-C [address] [place] [address] [address] [place] [address] Assigned PCP 02/15/21 02/28/21 Alek Jones MD [address], [address] [address] Assigned PCP 03/01/21 Brayden Du MD [address] [place] [address] [place]T0021[place] [address] Neurology 05/06/22 documented as of this encounter
--- OUTSIDE RECORDS SUMMARY | 2023-07-14 06:19 | XMS_ITS | Encounter Summary ---
Author Name Unknown Organization [place] Address [address] [place] [address]. [place] [address] Care Team Providers Care Athletic Equipment Custodian Name Role Phone Rose Pelletier MANAGER SCIENCE Unavailable [phone] Alek Jones MD Primary Care Provide r Alek Jones MD Unavailable [phone] Alek Jones MD Unavailable [phone] Alexa Simon PA-C Unavailable + [phone] Alexa Simon PA-C Unavailable Alek Jones MD Unavailable +[phone] [place] Unavailable Alexa Simon PA-C Unavailable + [phone] Alek Jones MD Unavailable +[phone] Neelima Shukla DO Primary Care Provider [phone] Brayden Du MD Unavailable Reason for Visit * Reason Comments Medication Refill Encounter Details Date Type Department Care Team (Late st Contact Info) Description 10/11/2016 Refill [facility] [address] [place] [address] [address] [place] [address] Alek Jones MD [address] [place] [address], [address] [id number] Medication Refill Social History Tobacco Use Types Packs/Day Years Used Date Smoking Tobacco: Former Smokeless Tobacco: Never Alcohol Use Standard Drinks/Week Comments No 0 (1 standard drink = 0.6 oz pur e alcohol) Sex and Gender Information Value Date Recorded Sex Assigned at Female 02/28/2021 1:24 PM MANUFACTURING DESIGN ENGINEER Gender Identity Female 02/28/2021 1:23 PM MANUFACTURING DESIGN ENGINEER Sexual Orientation Straight 02/28/2021 1: 20 PM MANUFACTURING DESIGN ENGINEER documented as of this encounter Miscellaneous Notes * Telephone Encounter - Brooklyn Celestin - 10/11/2016 11:14 AM CDT Message left for Pt that a 30 day Rx refill was authorized, and pt should schedule a non fasting OV. * Telephone Encounter - Ana Mueller MA - 10/11/2016 8:31 AM CDT [facility] in [facility] Pt is due for ov NON fasting Jayna [phone] (home) documented in this encounter Plan of [...] Depression Total Score: 13 017 7:16 AM MANUFACTURING DESIGN ENGINEER documented as of this encounter Care Teams Athletic Equipment Custodian Relationship Specialty Start Date End Date Alek Jones MD [address], [id number] [place] [address] PCP - General Family Practice 03/18/16 01/11/22 [place] [address] [place] [address] PCP - General Family Medicine 01/12/22 Rose Pelletier, [facility] Physician Office Specialist 09/19/14 07/10/20 Alek Jones MD [address], [id number] [place] [address] Assigned PCP 04/08/19 05/24/20 Alek Jones MD [address], [address] [address] Assigned PCP 12/25/17 03/31/19 Alexa Simon PA-C [address], [address] [place] [address] Assigned PCP 04/01/19 04/07/19 Alexa Simon PA-C [address], [address] [address] Assigned PCP 05/25/20 06/07/20 Alek Jones MD [address], [address] [address] Assigned PCP 06/08/20 02/14/21 [place]), [address] [phone] [facility] 10/27/20 11/14/20 Alexa Simon PA-C [address], [address] [place] [address] Assigned PCP 02/15/21 02/28/21 Alek Jones MD [address], [address] [address] Assigned PCP 03/01/21 Brayden Du MD [address] [facility] [id number] [address] Neurology 05/06/22 documented as of this encounter
--- OUTSIDE RECORDS SUMMARY | 2023-07-14 06:19 | XMS_ITS | Encounter Summary ---
Author Name Unknown Organization [place] Address [facility] [place] [address] Care Team Providers Care Senior Db2 Systems Programmer Name Role Phone Jeramie Sterling MD Primary Care Provider Elodia Rose Oliveira Marcie VP OF DIGITAL MARKETING Unavailable [phone] Estela Dacosta Primary Care Provi nnamdi Kelley Love MD Primary Care Provider [phone] Alek Jones MD Primary Care Provide r Alek Jones MD Unavailable [phone] Alek Jones MD Unavailable [phone] Alexa Simon PA-C Unavailable + [phone] Alexa Simon PA-C Unavailable + [phone] Alek Jones MD Unavailable +[phone] [place] Unavailable Alexa Simon PA-C Unavailable + [phone] Alek Jones MD Unavailable +[phone] Neelima Shukla DO Primary Care Provider [phone] Brayden Du MD Unavailable Reason for Visit * Reason Comments Medication Refill Encounter Details Date Type Department Care Team (Late st Contact Info) Description 10/14/2014 Refill [facility] [address] [place] [address] [address] [place] [address] Jeramie Sterling MD XXXX RESIGNED/INACTIVE XXXX Medication Refill Social History Tobacco Use Types Packs/Day Years Used Date Smoking Tobacco: Former Smokeless Tobacco: Never Alcohol Use Standard Drinks/Week Comments No 0 (1 standard drink = 0.6 oz pur e alcohol) Sex and Gender Information Value Date Recorded Sex Assigned at Female 02/28/2021 1:24 PM CLINICAL RESOURCE NURSE Gender Identity Female 02/28/2021 1:23 PM CLINICAL RESOURCE NURSE Sexual Orientation Straight 02/28/2021 1: 20 PM CLINICAL RESOURCE NURSE documented as of this encounter Plan of Treatment Not on file documented as of this encounter Visit Diagnoses Not on filedocumented in this encounter Additional Health Concerns Infection Onset Date Last Indicated Resolved Time 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/07/2020 11/07/2020 11/09/2020 1:31 AM CDT documented as of this encounter Care Teams Senior Db2 Systems Programmer Relationship Specialty Start Date End Date Jeramie Sterling MD PCP - General Family Practice 07/24/14 11/09/15 Estela Dacosta PA PCP - General Family Practice 11/10/15 12/17/15 Kelley Lvoe MD [address] [place] [address] PCP - General Family Practice 12/18/15 03/17/16 Alek Jones MD [address] [place] [address] PCP - General Family Practice 03/18/16 01/11/22 [place] [address] [place] [address] PCP - General Family Medicine 01/12/22 Rose Pelletier LSW In Store Representative 09/19/14 07/10/20 Alek Jones MD [address], [address] [address] Assigned PCP 04/08/19 05/24/20 Alek Jones MD [address], [address] [address] Assigned PCP 12/25/17 03/31/19 Alexa Simon PA-C [address] , [address] [address] Assigned PCP 04/01/19 04/07/19 Alexa Simon PA-C [address] , [address] [address] Assigned PCP 05/25/20 06/07/20 Alek Jones MD [address] , [address] [address] Assigned PCP 06/08/20 02/14/21 [place]), [address] [address] [facility] Facility 10/27/20 11/14/20 Alexa Simon PA-C [address] , [address] [address] Assigned PCP 02/15/21 02/28/21 Alek Jones MD [address] , [address] [address] Assigned PCP 03/01/21 Brayden Du MD [address] [place] [address] [id number] [place] [address] Neurology 05/06/22 documented as of this encounter
== END 2023-07-09 14:20 | disposition home or self-care (01) ==
LOC: AMB 07-14 06:15
PROVIDERS: PCP Family Medicine; Visit Provider Family Medicine
DX: G93.40 Encephalopathy, unspecified (principal); R79.89 Other specified abnormal findings of blood chemistry; R53.1 Weakness; I95.9 Hypotension, unspecified
CPT/HCPCS: A0425; A0434

== ENCOUNTER 2024-01-16 15:55 | Emergency (ER) | payer MEDICARE, MEDICAID, SELFPAY ==
[2024-01-16] VITALS (20 sets, daily range): BP systolic 113–138; BP diastolic 57–92; PULSE 76–87; RESP 16–19; TEMP 36.4; O2SAT 94–98; BMI 30.9
--- NOTE | 2024-01-16 16:04 | CRLHL7_ITS ---
For Patients: As a result of the Century Cures Act, medical imaging exams and procedure reports are released immediately into your electronic medical record. You may view this report before your referring provider. If you have questions, please contact your health care provider. INDICATION: Fall. TECHNIQUE: Non-contrast CT of the head is submitted. No comparisons. FINDINGS: Mildly motion degraded examination, limiting fine detail evaluation. Postsurgical changes of prior right frontal craniotomy with underlying right frontal lobe encephalomalacia and multiple small metallic foci which may reflect embolization coils. There is also an embolization coil pack along the left ICA ophthalmic-paraclinoid segments. Associated beam hardening/streak artifacts limit evaluation of nearby structures. There is no evident acute intracranial hemorrhage or mass effect. No hydrocephalus. The basal cisterns are patent. No midline shift. No evident acute calvarial fractures, though evaluation about the vertex is markedly limited due to motion artifact. Left supraorbital superficial soft tissue swelling/hematoma without underlying calvarial fracture. Please see separately dictated same day CT facial bones for characterization of the partially visualized facial findings. IMPRESSION: No radiographic evidence of acute intracranial abnormalities, within the limitations noted above. Please note that all CT scans at this facility use dose modulation, iterative reconstruction, and/or weight-based dosing when appropriate to reduce radiation dose to as low as reasonably achievable. Dictated by Keshawn Soto MD @ 01/16/2024 5:55:00 PM (Electronically Signed)
--- NOTE | 2024-01-16 16:04 | CRLHL7_ITS ---
For Patients: As a result of the Century Cures Act, medical imaging exams and procedure reports are released immediately into your electronic medical record. You may view this report before your referring provider. If you have questions, please contact your health care provider. INDICATION: Fall. Left eye swollen. TECHNIQUE: CT maxillofacial without i.v. contrast. Coronal and sagittal reformats were obtained. COMPARISON: None FINDINGS: Facial bones: No evident acute fractures or aggressive osseous lesions are identified. Specifically the nasal bones, temporomandibular joints, and maxilla appear intact. The mandibular bodies and symphyseal region are outside of the field of view. Orbits and globes: Unremarkable. No evidence of a retrobulbar hemorrhage. Sinuses: Moderate mucosal thickening in the left sphenoid sinus lateral recess with associated sinus wall sclerosis and thickening, indicating chronic inflammation. Soft tissues: Wfllqrzf-si-[id number] left supra/periorbital soft tissue swelling supraorbital subcutaneous hematoma. IMPRESSION: No acute osseous injuries are identified. Left periorbital soft tissue swelling/hematoma with an unremarkable appearance of the left orbit. Please note that all CT scans at this facility use dose modulation, iterative reconstruction, and/or weight-based dosing when appropriate to reduce radiation dose to as low as reasonably achievable. Dictated by Keshawn Soto MD @ 01/16/2024 6:08:30 PM (Electronically Signed)
--- NOTE | 2024-01-16 16:04 | CRLHL7_ITS ---
For Patients: As a result of the Century Cures Act, medical imaging exams and procedure reports are released immediately into your electronic medical record. You may view this report before your referring provider. If you have questions, please contact your health care provider. INDICATION: Fall. TECHNIQUE: CT cervical spine without contrast. COMPARISON: None. FINDINGS: There is cmrv-pg-nvykllle motion degradation at the level of the skull base-C2, limiting fine detail evaluation and decreasing sensitivity for the detection of nondisplaced fractures. Vertebrae: Postsurgical changes of prior C5-7 ACDF. Hardware appears intact. No acute traumatic subluxation. There are no evident acute fractures or suspicious bony lesions. Discs and facet joints: There are diffuse degenerative changes in the disc spaces and facet joints. Extraspinal findings: Paraspinous soft tissues are unremarkable. Retropharyngeal courses of the carotid arteries IMPRESSION: 1. No sign of acute injury within the limitations detailed above. 2. Multilevel degenerative spondylosis. Please note that all CT scans at this facility use dose modulation, iterative reconstruction, and/or weight-based dosing when appropriate to reduce radiation dose to as low as reasonably achievable. Dictated by Keshawn Soto MD @ 01/16/2024 6:00:04 PM (Electronically Signed)
--- OUTSIDE RECORDS SUMMARY | 2024-01-16 16:05 | XMS_ITS | Referral Summary ---
Author Organization [facility] Address [address] [place] [address]. [place] [address] Care Team Providers Care Undergraduate Intern Name Role Phone Brayden Du MD Unavailable Davonte Juan APRN, CNP Primary Care Pr ovider Maya Alfaro MD Unavailable [phone] Kelsy Matthews Unavailable + (Fgs), [facility] A[facility] Asst Living Unavailable Davonte Juan APRN, CNP Unavailable Encounters Date Type Department Care Team Description 01/06/2024 Travel 01/06/2024 7:30 AM CDT Assisted Living Visit [facility] [address] [place] [phone] Davonte Juan APRN CNP Fall, initial encounter (Primary Dx); Intertrigo; Hypertension, unspecified type 01/03/2024 Telephone [facility] [address] [place] [phone] Ritu Dennis RN Patient Request 12/27/2023 Telephone [facility] [address] [place] [phone] 35 Davonte Juan APRN CNP Prior Auth - Medication ( hydrOXYzine HCl (ATARAX) 25 MG tablet ) 12/23/2023 Travel 12/23/2023 7:00 AM CDT Assisted Living Visit [facility] [address] [place] [phone] 96 Davonte Juan APRN CNP Decreased responsiveness (Primary Dx); Major depressive disorder, recurrent episode, moderate (H); Lymphedema 12/20/[address] [phone] Davonte Juan APRN CNP Prior Auth - Medication (hydrOXYzine HCl (ATARAX) 25 MG tablet) 12/13/[address] [phone] Davonte Juan APRN CNP 12/06/2023 Travel 12/06/2023 8:30 AM CDT Assisted Living Visit [address] [phone] Davonte Juan APRN CNP Lymphedema (Primary Dx); Hypertension, unspecified type; Primary insomnia 12/02/[address] [phone] Davonte Juan APRN CNP 12/01/2023 Orders Only [address] [phone] Davonte Juan APRN CNP DIAGNOSIS NOT YET DEFINED (Primary Dx) 11/23/[address] [phone] Katie Chicas RN Dysuria 11/18/2023 Travel 11/18/2023 8:30 AM CDT Assisted Living Visit [address] [phone] Davonte Juan APRN CNP Left hemiparesis (H) (Primary Dx); Lymphedema; Dermatitis 11/17/[address] [phone] Ritu Dennis RN Refill Request 11/17/[address] [phone] Ritu Dennis RN Refill Request 11/15/2023 Travel 11/15/2023 Documentation Only [facility] [address] [place] [phone] Kelsy Matthews Geriatric[facility] Tracker 11/15/2023 8:00 AM CDT Assisted Living Visit [address] [phone] Davonte Juan, LONG BHAT Hypertension, unspecified type (Primary Dx); Lymphedema; Left hemiparesis (H); Chemical dependency (H); Major depressive disorder, recurrent episode, moderate (H); Seizure disorder (H); Idiopathic postprandial hypoglycemia; ACP (advance care planning) from Last 3 Months Allergies Active Allergy Reactions Criticality Noted Date Comments Propoxyphene Napsylate 09/19/2012 Propoxyphene 09/02/2014 Other reaction(s): Seizures Medications Medication Sig Dispensed Refills Start Date End Date Status SUMAtriptan (IMITREX) 100 MG tabletIndication s:History of migraine TAKE 1 TABLET BY MOUTH AT ONSET OF HEADACHE Dr Juan David Garcia DO, neurologist 9 tablet 0 5 Active Cyanocobalamin (VITAMIN B-12 PO) Take 1,000 mcg by mouth daily Active nicotine (COMMIT) 2 MG lozengeIndicatio ns:Nicotine dependence with nicotine-induced disorder, unspecified nicotine product type Place 1 lozenge (2 mg) inside cheek every hour as needed for smoking cessation 1 Active calcium carbonate (TUMS) 500 MG chewable tablet Take 1 tablet (500 mg) by mouth daily 1 Active polyethylene glycol (MIRALAX) 17 GM/Dose powderIndication s:Constipation, unspecified constipation type Take 17 g by mouth daily 510 g 1 Active Additional Information Patient taking differently:17 g OralDAILY PRN, Reported on 11/03/2020 acetaminophen (TYLENOL) 500 MG tabletIndication s:Closed trimalleolar fracture of left ankle, initial encounter Take 2 tablets (1,000 mg) by mouth 3 times daily 1 Active rotigotine (NEUPRO) 2 MG/24HR [address] 1 patch onto the skin daily 1 Active phenytoin (DILANTIN) 100 MG ER capsule Take 100 mg by mouth 2 times daily 200 mg at hs Active rOPINIRole (REQUIP ER) 2 MG 24 hr tablet Take 2.5 mg by mouth daily Active aspirin (ASA) 81 MG chewable tablet Take 81 mg by mouth daily Active citalopram (CELEXA) 40 MG tablet Take 40 mg by mouth daily Active Estradiol (ESTRACE VA) Place 0.01 % vaginally twice a week Active furosemide (LASIX) 40 MG tablet Take 40 mg by mouth 2 times daily Active metoprolol tartrate (LOPRESSOR) 50 MG tablet Take 50 mg by mouth daily Active mirtazapine (REMERON) 45 MG tablet Take 45 mg by mouth at bedtime Active omeprazole (PRILOSEC) [address] capsule Take 20 mg by mouth daily Active Potassium Chloride 40 MEQ/15ML (20%) SOLN Take 20 mEq by mouth daily Active cyanocobalamin (VITAMIN B-12) 1000 MCG tablet Take 1,000 mcg by mouth daily Active vitamin D3 (CHOLECALCIFEROL ) 50 mcg (2000 units) tablet Take 1 tablet by mouth daily Active docusate sodium (COLACE) 100 MG capsule Take 100 mg by mouth 2 times daily as needed for constipation Active ibuprofen (ADVIL/MOTRIN) 400 MG tablet Take 400 mg by mouth every 8 hours as needed for moderate pain Active hypromellose (ARTIFICIAL TEARS) 0.5 % SOLN ophthalmic solution Place 2 drops into both eyes 2 times daily as needed for dry eyes Active hydrocortisone 1 % CREA cream Place rectally 2 times daily. Active Coloplast barrier cream CREA Apply 1 Dose topically 2 times daily. Active pregabalin (LYRICA) 300 MG capsuleIndicatio ns:Chronic pain disorder Take 1 capsule (300 mg) by mouth 2 times daily. 60 capsule 5 4 Active camphor-menthol (DERMASARRA) 0.5-0.5 % external lotion Apply 1 applicator topically 2 times daily. Active Suvorexant (BELSOMRA) 20 MG tabletIndication s:Chronic pain disorder Take 1 tablet (20 mg) by mouth at bedtime. 30 tablet 5 4 Active hydrOXYzine HCl (ATARAX) 25 MG tabletIndication s:Acute Urticaria Take 25 mg by mouth 3 times daily. And every day prn Active hydrOXYzine HCl (ATARAX) 25 MG tablet Take 25 mg by mouth 3 times daily as needed for itching. 01/03/20 24 Discontinued(Do se adjustment) hydrOXYzine HCl (ATARAX) 25 MG tablet Take 25 mg by mouth 3 times daily as needed for itching. 01/03/20 24 Discontinued(Do se adjustment) hydrOXYzine HCl (ATARAX) 25 MG tabletIndication s:Pruritus Take 25 mg by mouth 2 times daily. 01/06/20 24 Discontinued Active Problems Problem Noted Date Diagnosed Date Left hemiparesis 11/15/2023 Trimalleolar fracture of ank le, closed, left, [...] legally designated decision maker(s). 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 in 2000 Last seizure 2009 Pt on dilantin and sees neurology at [facility] History of migraine 09/19/2012 Resolved Problems Problem Noted Date Diagnosed Date Resolved Date Polysubstance abuse 09/04/2013 07/25/19 15 Alcohol abuse, episodic drinking behavior 08/30/2013 07/24/2014 Health Long Term 09/19/2012 09/12/2023 Overview: State Tier Level: Tier 1 Status: N/A Foreign Exchange Position Clerk: N/A See Letters for [facility] Care Plan Adjustment disorder with mix ed anxiety and depressed mood 09/19/2012 04/07/2016 Overview: Dxed at 20 y0 Immunizations Name Administration Dates Next Due COVID-19 MONOVALENT 12+ (Pfizer) 07/30/2020,06/26 Flu, Unspecified 03/05/2019, 0,12/23/2008,2005,02/18/2004 Influenza Vaccine >6 months,quad, PF ,02/16/2021,12/10/2019,2018,01/10/2018,11/24/2016,04/07/2016,1 ,01/17/2014 Influenza,INJ,MDCK,PF,Quad >6mo(Flucelvax) 03/05/2019 Pneumococcal 20 valent Conju gate (Prevnar 20) 02/10/2022 TDAP Vaccine (Adacel) 01/04/2006 TDAP Vaccine (Boostrix) [...] Sex Assigned at Female 02/28/2021 1:24 PM LIQUEFIED [employer]ROLE[employer] G[employer]FITTER Gender Identity Female 02/28/2021 1:23 PM LIQUEFIED [employer]ROLE[employer] G[employer]TER Sexual Orientation Straight 02/28/2021 1: 20 PM LIQUEFIED PETROLEUM GASFITTER Last Filed Vital Signs Vital Sign Reading Time Taken Comments Blood Pressure 110/67 01/06/2024 8:08 AM CDT Pulse 65 01/06/2024 8:08 AM CDT Temperature 36.3 ??C (97.4 ??F) 12/23/2023 8:04 AM CD T Respiratory Rate 16 01/06/2024 8:08 AM CDT Oxygen Saturation 95% 01/06/2024 8:08 AM CDT Inhaled Oxygen Concentration - - Weight 81.6 kg (180 lb) 12/23/2023 8:04 AM CDT Height 162.6 cm (5' 4) 01/06/2024 8:08 AM CDT Body Mass Index 30.9 12/23/2023 8:04 AM CDT Plan of Treatment Not on file Medical Devices Implanted Type Area Rubber Cutter And Shape Carver Device Identifier Shelf Expiration Date Model / Serial / Lot Imp Scr Syn Lcp Dist 2.7x12mm Self Tap Ss 202.212 - [id number] Implanted:Qty: 1 on 10/24/2020 by Quentin Pritchett MD at [facility] Metallic Hardware/An chor Left: Ankle SYNTHES-STRATEC 202.212 / / [id number] Imp Scr Syn Lcp Dist 2.7x14mm Self Tap Ss 202.214 - [id number] Implanted:Qty: 1 on 10/24/2020 by Quentin Pritchett MD at [facility] Metallic Hardware/An chor Left: Ankle SYNTHES-STRATEC 202.214 / / [id number] 21 Imp Scr Syn Lcp Dist 2.7x16mm Self Tap Ss 202.216 - [id number] Implanted:Qty: 3 on 10/24/2020 by Quentin Pritchett MD at [facility] Metallic Hardware/An chor Left: Ankle SYNTHES-STRATEC 202.216 / / [id number] 21 Imp Scr Syn Cortex 2.7x32mm Self Tap Ss 202.832 - [id number] Implanted:Qty: 1 on 10/24/2020 by Quentin Pritchett MD at [facility] Metallic Hardware/An chor Left: Ankle SYNTHES-STRATEC 202.832 / / [id number] L2021 Imp Scr Syn 3.5x12mm Locking W/Stardrive Ss 212.102 - [id number] Implanted:Qty: 2 on 10/24/2020 by Quentin Pritchett MD at [facility] Metallic Hardware/An chor Left: Ankle SYNTHES-STRATEC 212.102 / / [id number] L2021 Imp Scr Syn Cortex 3.5x16mm Self Tap Ss 204.816 - [id number] Implanted:Qty: 1 on 10/24/2020 by Quentin Pritchett MD at [facility] Metallic Hardware/An chor Left: Ankle SYNTHES-STRATEC 204.816 / / [id number] L2021 Imp Scr Syn Cortex 3.5x28mm Self Tap Ss 204.828 - [id number] Implanted:Qty: 1 on 10/24/2020 by Quentin Pritchett MD at [facility] Metallic Hardware/An chor Left: Ankle SYNTHES-STRATEC 204.828 / / [id number] L2021 Imp Scr Syn Cortex 3.5x38mm Self Tap Ss 204.838 - [id number] Implanted:Qty: 1 on 10/24/2020 by Quentin Pritchett MD at [facility] Metallic Hardware/An chor Left: Ankle SYNTHES-STRATEC 204.838 / / [id number] L2021 Imp Scr Syn Can 4.0x40mm Long Thrd Ss 207.740 - [id number] Implanted:Qty: 1 on 10/24/2020 by Quentin Pritchett MD at [facility] Metallic Hardware/An chor Left: Ankle SYNTHES-STRATEC 207.740 / / [id number] L2021 Imp Wire Margarita 0.045x4 78.2020 - [id number] Implanted:Qty: 1 on 10/24/2020 by Quentin Pritchett MD at [facility] Wire Left: Ankle G SOURCE 78.202 / / 4.0mm Ti Locking Screww/T25 Implanted:Qty: 1 on 01/16/2014 by Bayron Can MD at [facility] Left: Humerus SYNTHES 08/27/2019 04.005.4 44S / / [id number] 4.5mm Ti Multiloc Screw 42mm Implanted:Qty: 1 on 01/16/2014 by Bayron Can MD at [facility] Left: Humerus SYNTHES 03/28/2022 04.019.0 42S / / [id number] 4.5mm Ti Mulitloc Screw 38mm Implanted:Qty: 1 on 01/16/2014 by Bayron Can MD at [facility] Left: Humerus SYNTHES 02/25/2022 04.019.0 38S / / [id number] 4.0mm Ti Locking Screw 24mm Implanted:Qty: 1 on 01/16/2014 by Bayron Can MD at [facility] Left: Humerus SYNTHES 08/26/2022 04.005.4 14S / / [id number] 4.0mm Ti Locking Screw 26mm Implanted:Qty: 1 on 01/16/2014 by Bayron Can MD at [facility] Left: Humerus SYNTHES 12/26/2021 04.005.4 16S / / [id number] Multiloc End Cap Implanted:Qty: 1 on 01/16/2014 by Bayron Can MD at [facility] Left: Humerus SYNTHES 11/26/2022 04.019.0 00S / / [id number] 4.5mmti Multiloc Screw 38mm Implanted:Qty: 1 on 01/16/2014 by Bayron Can MD at [facility] Left: Humerus SYNTHES 02/25/2023 04.019.0 38S / / [id number] 3.5mm Lcp Hook Plate Implanted:Qty: 1 on 10/24/2020 by Quentin Pritchett MD at [facility] Left: Ankle SYNTHES 02.113.1 03S / / [id number] 2.7mm/3.5mm Lcp Posterolateral Distal Fibula Plates Implanted:Qty: 1 on 10/24/2020 by Quentin Pritchett MD at [facility] Left: Ankle SYNTHES 02.112.1 8001 [id number] 21 Procedures Procedure Name Priority Date/Time Associated Diagnosis Comments BASIC METABOLIC PANEL (OUTREACH) Routine 01/09/2024 10:04 AM CDT Edema, unspecified TRIP CHARGE - LAB ONLY Routine 01/09/2024 10:04 AM CDT Edema, unspecified BASIC METABOLIC PANEL NO GLUCOSE (OUTREACH) Routine 01/09/2024 10:04 AM CDT Edema, unspecified GLUCOSE (OUTREACH) Routine 01/09/2024 10 :04 AM CDT Edema, unspecified HEMOGLOBIN Routine 01/09/2024 10:04 AM CDT Edema, unspecified LA CERTIFICATION MAT MAN PATIENT Routine 12/01/2023 DIAGNOSIS NOT YET DEFINED URINE CULTURE Routine 11/23/2023 4:00 PM CDT ROUTINE UA WITH MICROSCOPIC Routine 11/23/2023 4:00 PM CDT BASIC METABOLIC PANEL (OUTREACH) Routine 11/16/2023 6:18 AM CDT Edema, unspecified TRIP CHARGE - LAB ONLY Routine 11/16/2023 6:18 AM CDT Edema, unspecified BASIC METABOLIC PANEL NO GLUCOSE (OUTREACH) Routine 11/16/2023 6:18 AM CDT Edema, unspecified GLUCOSE (OUTREACH) Routine 11/16/2023 6: 18 AM CDT Edema, unspecified CBC WITH PLATELETS Routine 11/16/2023 6: 18 AM CDT Edema, unspecified HEMOGLOBIN A1C Routine 11/16/2023 6:18 AM CDT Edema, unspecified TRIP CHARGE - LAB ONLY Routine 11/10/2023 6:33 AM CDT Hypoglycemia, unspecified INSULIN LEVEL Routine 11/10/2023 6:33 AM CDT Hypoglycemia, unspecified BASIC METABOLIC PANEL Routine 08/03/2023 7:03 AM CDT Adult failure to thrive Klebsiella pneumoniae (k. pneumoniae) as the cause of diseases classified elsewhere Urinary tract infection, site not specified Other gram-negative sepsis (H) LIPID PANEL (BFP) Routine 02/24/2021 3:3 5 PM LIQUEFIED PETROLEUM GASFITTER Mixed hyperlipidemia MA DIAGNOSTIC BILATERAL W/ JESSE Routine 12/09/2017 THINPREP PAP RFLX HPV MRNA E6/E7 (QUEST) Routine 03/04/2017 3:13 PM LIQUEFIED PETROLEUM GASFITTER Encounter for gynecological examination without abnormal finding HEPATITIS C ANTIBODY Routine 04/07/2016 3:32 PM LIQUEFIED PETROLEUM GASFITTER Need for hepatitis C screening test DRUG ABUSE SCREEN 8 URINE (UR) STAT 01/26/2006 2:35 PM LIQUEFIED PETROLEUM GASFITTER from Last 3 Months or Most Recently Relevant to Health Maintenance Results * Trip Charge - LAB ONLY (01/09/2024 10:04 AM CDT) Only the most recent of3 resultswithin the time period is included. Other TOPOGRAPHY UNKNOWN / Unknown Billing only / Unknown 01/09/2024 10:04 AM CDT 01/09/2024 2:40 PM CDT Davonte Juan APRN COMPUTER INSTRUCTOR LAB [facility] GE PERFORMABLES [facility] [address] [address], [facility] * (ABNORMAL) Basic Metabolic Panel No Glucose (OUTREACH) (01/09/2024 10:04 AM CDT) Only the most recent of2 resultswithin the time period is included. Sodium 135 135 - 145 mmol/L 01/09/2024 8:15 PM CDT [facility] Potassium 4.5 3.4 - 5.3 mmol/L 01/09/2024 8:15 PM CDT [facility] Chloride 97(L) 98 - 107 mmol/L 01/09/2024 8:15 PM CDT [facility] Carbon Dioxide (CO2) 28 22 - 29 mmol/L 01/09/2024 8:15 PM CDT [facility] Anion Gap 10 7 - 15 mmol/L 01/09/2024 8:15 PM CDT [facility] Urea Nitrogen 12.9 8.0 - 23.0 mg/dL 01/09/2024 8:15 PM CDT [facility] Creatinine 0.66 0.51 - 0.95 mg/dL 01/09/2024 8:15 PM CDT [facility] GFR Estimate >90 >60 mL/min/1.7 3m2 01/09/2024 8:15 PM CDT [facility] Calcium 9.3 8.8 - 10.4 mg/dL 01/09/2024 8:15 PM CDT [facility] Comment:Reference intervals for this test were updated on 10/11/2023 to reflect our healthy population more accurately. There may be differences in the flagging of prior results with similar values performed with this method. Those prior results can be interpreted in the context of the updated reference intervals. Blood STRUCTURE OF LEFT UPPER LIMB / Unknown Venipuncture / Unknown 01/09/2024 10:04 AM CDT 01/09/2024 2:40 PM CDT Davonte Juan APRN COMPUTER INSTRUCTOR LAB - BL OOD ORDERABLES [facility] [place] [facility] [address] [facility] [place] [address], [facility] * Glucose (OUTREACH) (01/09/2024 10:04 AM CDT) Only the most recent of2 resultswithin the time period is included. Glucose 89 70 - 99 mg/dL 01/09/2024 7:26 PM CDT [facility] Blood STRUCTURE OF LEFT UPPER LIMB / Unknown Venipuncture / Unknown 01/09/2024 10:04 AM CDT 01/09/2024 2:40 PM CDT Davonte Juan LONG [facility] LAB - BL OOD ORDERABLES [facility] [address] [facility], [address] [phone] * (ABNORMAL) Hemoglobin (01/09/2024 10:04 AM CDT) Hemoglobin 10.5(L) 11.7 - 15.7 g/dL 01/09/2024 4:38 PM CDT [facility] Blood STRUCTURE OF LEFT UPPER LIMB / Unknown Venipuncture / Unknown 01/09/2024 10:04 AM CDT 01/09/2024 2:40 PM CDT Davonte Juan LONG [facility] LAB - BL OOD ORDERABLES Performing Organization Address City/[facility] Co de Phone Number [facility] [address] [facility], [address] [phone] * MD CERTIFICATION MAT MAN PATIENT (12/01/2023) Davonte Juan LONG [facility] SPECIAL REPORTS * (ABNORMAL) UA with Microscopic (11/23/2023 4:00 PM CDT) Color Urine Light Yellow Colorless, Straw, Light Yellow, Yellow 11/23/2023 9:59 PM CDT [facility] Appearance Urine Slightly Cloudy(A) Clear 11/23/2023 9:59 PM CDT [facility] Glucose Urine Negative Negative mg/dL 11/23/2023 9:59 PM CDT [facility] Bilirubin Urine Negative Negative 9:59 PM CDT [facility] Ketones Urine Negative Negative mg/dL 11/23/2023 9:59 PM CDT [facility] Specific [place] Urine 1.013 1.003 - 1.035 11/23/2023 9:59 PM CDT [facility] Blood Urine Trace(A) Negative 11/23/2023 9:59 PM CDT [facility] pH Urine 5.0 5.0 - 7.0 11/23/2023 9:59 PM CDT [facility] Protein Albumin Urine Negative Negative mg/dL 11/23/2023 9:59 PM CDT [facility] Urobilinogen Urine Normal Normal, 2.0 mg/dL 11/23/2023 9:59 PM CDT [facility] Nitrite Urine Positive(A) Negative 11/23/2023 9:59 PM CDT [facility] Leukocyte Esterase Urine Large(A) Negative 11/23/2023 9:59 PM CDT [facility] Bacteria Urine Many(A) None Seen /HPF 11/23/2023 9:59 PM CDT [facility] Mucus Urine Present(A) None Seen /LPF 11/23/2023 9:59 PM CDT [facility] RBC Urine 3(H) <=2 /HPF 11/23/2023 9:59 PM CDT [facility] WBC Urine 52(H) <=5 /HPF 11/23/2023 9:59 PM CDT [facility] Squamous Epithelials Urine 1 <=1 /HPF 11/23/2023 9:59 PM CDT [facility] Hyaline Casts Urine 7(H) <=2 /LPF 11/23/2023 9:59 PM CDT [facility] Urine URINE SPECIMEN OBTAINED BY CLEAN CATCH PROCEDURE / Unknown Non-blood Collection / Unknown 11/23/2023 4:00 PM CDT 11/23/2023 6:18 PM CDT Davonte Juan APRN COMPUTER INSTRUCTOR LAB - UR INE ORDERABLES [facility] [place] [facility] [address] [facility] [address], [address] [place] [address], [facility] * (ABNORMAL) Urine Culture (11/23/2023 4:00 PM CDT) Culture 10,000-50,000 CFU/mL Klebsiella pneumoniae(A) 11/25/2023 2:59 AM CDT [facility] Urine URINE SPECIMEN OBTAINED BY CLEAN CATCH PROCEDURE / Unknown Non-blood Collection / Unknown 11/23/2023 4:00 PM CDT 11/23/2023 6:18 PM CDT Narrative Organism Antibiotic Method Susceptibility Klebsiella pneumoniae Ampicillin JANICE Resistant Comment:Intrinsicall y Resistant Klebsiella pneumoniae Ampicillin/ Sulbactam JANICE 4 ug/mL: Susceptible Klebsiella pneumoniae Piperacillin/Tazobactam JANICE <=4 ug/mL: Susceptible Klebsiella pneumoniae Cefazolin JANICE <=4 ug/mL: Susceptible Comment:Cefazolin [place] C breakpoints are for the treatment of uncomplicated urinary tract infections. For the treatment of systemic infections, please contact the laboratory for additional testing. Klebsiella pneumoniae Cefoxitin JANICE <=4 ug/mL: Susceptible Klebsiella pneumoniae Ceftazidime JAINCE <=1 ug/mL: Susceptible Klebsiella pneumoniae Ceftriaxone JANICE <=1 ug/mL: Susceptible Klebsiella pneumoniae Cefepime JANICE <=1 ug/mL: Susceptible Klebsiella pneumoniae Gentamicin JANICE <=1 ug/mL: Susceptible Klebsiella pneumoniae Tobramycin JANICE <=1 ug/mL: Susceptible Klebsiella pneumoniae Ciprofloxacin JANICE <=0.25 ug/mL: Susceptible Klebsiella pneumoniae Levofloxacin JANICE <=0.12 ug/mL: Susceptible Klebsiella pneumoniae Nitrofurantoin JANICE 128 ug/mL: Resistant Klebsiella pneumoniae Trimethoprim/Sulfa methoxazol e JANICE <=1/19 ug/mL: Susceptible Davonte Juan APRN [facility] LAB - [facility] GENER[facility] ORDERABLES [facility] Inf. Diseases Diag. Lab [address] [facility], [address] [place] [phone] * (ABNORMAL) Hemoglobin A1c (11/16/2023 6:18 AM CDT) Hemoglobin A1C 5.8(H) <5.7 % 11/16/2023 12:08 PM CDT [facility] Comment: Normal <5.7% Prediabetes 5.7-6.4% ?? Diabetes 6.5% or higher Note: Adopted from ADA consensus guidelines. Blood STRUCTURE OF RIGHT UPPER LIMB / Unknown Venipuncture / Unknown 11/16/2023 6:18 AM CDT 11/16/2023 8:09 AM CDT Davonte Juan LONG COMPUTER INSTRUCTOR LAB - BL OOD ORDERABLES [facility] [place] [facility] [address] [facility], [address] [place] [phone] * (ABNORMAL) CBC with platelets (11/16/2023 6:18 AM CDT) WBC Count 7.1 4.0 - 11.0 10e3/uL 11/16/2023 10:02 AM CDT [facility] RBC Count 4.17 3.80 - 5.20 10e6/uL 11/16/2023 10:02 AM CDT [facility] Hemoglobin 9.6(L) 11.7 - 15.7 g/dL 11/16/2023 10:02 AM CDT [facility] Hematocrit 32.1(L) 35.0 - 47.0 % 11/16/2023 10:02 AM CDT [facility] MCV 77(L) 78 - 100 fL 11/16/2023 10:02 AM CDT [facility] MCH 23.0(L) 26.5 - 33.0 pg 11/16/2023 10:02 AM CDT [facility] MCHC 29.9(L) 31.5 - 36.5 g/dL 11/16/2023 10:02 AM CDT [facility] RDW 16.8(H) 10.0 - 15.0 % 11/16/2023 10:02 AM CDT [facility] Platelet Count 249 150 - 450 10e3/uL 11/16/2023 10:02 AM CDT [facility] Blood STRUCTURE OF RIGHT UPPER LIMB / Unknown Venipuncture / Unknown 11/16/2023 6:18 AM CDT 11/16/2023 8:09 AM CDT Davonte Hassanchacho ALVES COMPUTER INSTRUCTOR LAB - BL OOD ORDERABLES [facility] [place] [facility] [address] [facility], [address] [place] [phone], [facility] * Insulin level (11/10/2023 6:33 AM CDT) Insulin 5.7 2.6 - 24.9 uU/mL 11/10/2023 12:12 PM CDT [facility] Blood STRUCTURE OF LEFT HAND / Unknown Venipuncture / Unknown 11/10/2023 6:33 AM CDT 11/10/2023 9:14 AM CDT Anette Valencia MD LAB - BLOOD ORDERABL ES [facility] [place] [facility] [address] [facility], [address] [place] [address], [facility] * Basic metabolic panel (08/03/2023 7:03 AM CDT) Sodium 142 135 - 145 mmol/L 08/03/2023 6:11 PM CDT [facility] Comment:Reference intervals for this test were updated on 12/21/2022 to more accurately reflect our healthy population. There may be differences in the flagging of prior results with similar values performed with this method. Interpretation of those prior results can be made in the context of the updated reference intervals. Potassium 3.7 3.4 - 5.3 mmol/L 08/03/2023 6:11 PM CDT [facility] Chloride 105 98 - 107 mmol/L 08/03/2023 6:11 PM CDT [facility] Carbon Dioxide (CO2) 26 22 - 29 mmol/L 08/03/2023 6:11 PM CDT [facility] Anion Gap 11 7 - 15 mmol/L 08/03/2023 6:11 PM CDT [facility] Urea Nitrogen 14.8 8.0 - 23.0 mg/dL 08/03/2023 6:11 PM CDT [facility] Creatinine 0.58 0.51 - 0.95 mg/dL 08/03/2023 6:11 PM CDT [facility] GFR Estimate >90 >60 mL/min/1. 73m2 08/03/2023 6:11 PM CDT [facility] Calcium 8.8 8.8 - 10.2 mg/dL 08/03/2023 6:11 PM CDT [facility] Glucose 73 70 - 99 mg/dL 08/03/2023 6:11 PM CDT [facility] Blood STRUCTURE OF LEFT UPPER LIMB / Unknown Venipuncture / Unknown 08/03/2023 7:03 AM CDT 08/03/2023 9:07 AM CDT Anette Valencia MD LAB - BLOOD ORDERABL ES [facility] LABORATORY [facility] [place] [facility] [address] [facility], Room [address] [address] * (ABNORMAL) Lipid Panel (BFP) (02/24/2021 3:35 PM LIQUEFIED PETROLEUM GASFITTER) Cholesterol 307(A) 0 - 199 mg/dL B[facility] INTERNAL Triglycerides 369(A) 0 - 149 mg/dL [facility] INTERNAL HDL Cholesterol 108 40 - 150 mg/dL [facility] INTERNAL LDL Cholesterol Direct 125 0 - 130 mg/dL [facility] INTERNAL Cholesterol/HDL Ratio 3 0 - 5 [facility] INTERNAL Blood 02/24/2021 3:35 PM LIQUEFIED PETROLEUM GASFITTER Alek Jones MD LAB - NON-AGUSTIN KER BLOOD LABS BFP INTERNAL * MA Diagnostic Bilateral w/Jesse (12/09/2017) MAMMOGRAM Anatomical Region Laterality Modality Breast Bilateral Other Narrative 12/09/2017 [facility] Phone: [phone] * Fax: [phone] [address] Age: 62 Y Dept No.: [id number] LEO MUELLER : 1955 Chart # Gender: F Req. Phys: Alek Jones MD Clinic MRN: Clinic: [facility] Acc#: [id number] Exam: MAMMOGRAM SCREENING JESSE BILATERAL Exam Date: [...] Signed by: DORA Thank You for choosing [facility] Page 1 of 1 Patient Reported IMG MAMMOGRAPHY ORDE RABZAID * ThinPrep Pap and HPV (mRNA E6/E7){HPV-REFLEX} ([facility]) (03/04/2017 3:13 PM LIQUEFIED PETROLEUM GASFITTER) Clinical History None given [facility] [...] Comment:Negative for intraep ithelial lesion or malignancy. 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 [place] ? [facility] ? [address] [place] [phone] ? Lars Calderon M.D. Alek Jones MD LAB - NON-AGUSTIN KER NON-BLOOD [facility] [address] [place] [address] * Hepatits C antibody ([facility]) (04/07/2016 3:32 PM LIQUEFIED PETROLEUM GASFITTER) HCV Antibody NON-REACTI VE NON-REACTI VE [facility] SIGNAL TO CUT OFF - [facility] 0.03 <1.00 [facility] Blood specimen (specimen) 04/07/2016 3:32 PM LIQUEFIED PETROLEUM GASFITTER 04/08/2016 3:37 AM LIQUEFIED PETROLEUM GASFITTER Narrative Resulting Agency Comment Performing Organization Information: ? [place] [facility] ? [address] [place] [address] ? Lars Calderon M.D. Alek Jones MD LAB - BLOOD O RDERABLES [facility] [address] [place] [address] * (ABNORMAL) Drug abuse screen 8 urine (UR) (01/26/2006 2:35 PM LIQUEFIED PETROLEUM GASFITTER) Amphetamine Qual Urine Negative NEG MISYS Ethanol Qual Urine Negative NEG MISYS Opiates Qualitative Urine Positive(A) NEG MISYS PCP Qual Urine Negative NEG MISYS Benzodiazepine Qual Urine Negative NEG MISYS Barbiturates Qual Urine Negative NEG MISYS Cocaine Qual Urine Negative NEG MISYS Cannabinoids Qual Urine Negative NEG MISYS 01/26/2006 2:35 PM LIQUEFIED PETROLEUM GASFITTER 01/26/2006 2:25 PM LIQUEFIED PETROLEUM GASFITTER Russell Trinidad MD LAB - URINE ORDERABLES MISYS from Last 3 Months or Most Recently Relevant to Health Maintenance 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 Advance Directives For more information, please contact: [phone] * Full Code (Latest Code Status on [...] 5:45 PM 01/17/2014 4:33 PM Care Teams Undergraduate Intern Relationship Specialty Start Date End Date Davonte Juan APRN COMPUTER INSTRUCTOR [address] [place] [address] PCP - General Family Medicine 11/15/23 Brayden Du MD [address] [facility] [id number] [place] [address] Neurology 05/06/22 Maya Alfaro MD [address] [place] [address] Internal Medicine 11/15/23 Kelsy Matthews [address] [place] [address] Geriatric Services Head Loader 11/15/23 (Fgs), [facility] [address] [place] [address] 11/15/23 Davonte Juan APRN COMPUTER INSTRUCTOR [address] [place] [address] Assigned PCP 11/18/23
--- OUTSIDE RECORDS SUMMARY | 2024-01-16 16:05 | XMS_ITS | Encounter Summary ---
Author Organization [place] Address [address] [place] [address] Care Team Providers Care Senior Clinical Research Associate Name Role Phone Brayden Du MD Unavailable Davonte Juan APRN ELEVATOR CONSTRUCTOR SUPERVISOR Primary Care Pr ovider Maya Alfaro MD Unavailable [phone] Kelsy Matthews Unavailable (Fgs), [facility] shanta Apts Asst Living Unavailable Davonte Juan APRN ELEVATOR CONSTRUCTOR SUPERVISOR Unavailable Reason for Visit * Reason Comments Fall Encounter Details Date Type Department Care Team (Late st Contact Info) Description 01/06/2024 7:30 AM CDT Assisted Living Visit [facility] Geriatrics [address] [place] [phone] Davonte Juan APRN CNP [address] [place] [address] Fall, initial encounter (Primary Dx); Intertrigo; Hypertension, unspecified type Social History Tobacco Use Types Packs/Day Years [...] Sex Assigned at Female 02/28/2021 1:24 PM MOLDING PLASTERER Gender Identity Female 02/28/2021 1:23 PM MOLDING PLASTERER Sexual Orientation Straight 02/28/2021 1: 20 PM MOLDING PLASTERER documented as of this encounter Last Filed Vital Signs Vital Sign Reading Time Taken Comments Blood Pressure 110/67 01/06/2024 8:08 AM CDT Pulse 65 01/06/2024 8:08 AM CDT Temperature - - Respiratory Rate 16 01/06/2024 8:08 AM CDT Oxygen Saturation 95% 01/06/2024 8:08 AM CDT Inhaled Oxygen Concentration - - Weight - - Height 162.6 cm (5' 4) 01/06/2024 8:08 AM CDT Body Mass Index - - documented in this encounter Progress Notes * Davonte Juan APRN ELEVATOR CONSTRUCTOR SUPERVISOR - 01/06/2024 7:30 AM CDT [facility] [place] Place of Service where encounter took place: [facility] ([facility] [[id number]] Chief Complaint Patient presents with Fall HPI: Sultana Mueller is a 68 year old (1955), who is being seen today for an episodic care visit. HPI information obtained from: facility chart records, facility staff, patient report, and [facility] chart review. Today's concern is: Fall, intertrigo, HTN. S/p fall lat hs. Fell between bed, w.c. while transferring OOB. No apparent inj. Cont. To work with PT. Is getting a bedside pole to assist with transfers. For HTN taking metoprolol. Bps, HR stable. No reports of dizziness. Past Medical and Surgical History reviewed in [facility] today. MEDICATIONS: Current Outpatient Medications Medication Sig Dispense Refill hydrOXYzine HCl (ATARAX) 25 MG tablet Take 25 mg by mouth 3 times daily. And every day prn acetaminophen (TYLENOL) 500 MG tablet Take 2 tablets (1,000 mg) by mouth 3 times daily aspirin (ASA) 81 MG chewable tablet Take 81 mg by mouth daily calcium carbonate (TUMS) 500 MG chewable tablet Take 1 tablet (500 mg) by mouth daily camphor-menthol (DERMASARRA) 0.5-0.5 % external lotion Apply 1 applicator topically 2 times daily. citalopram (CELEXA) 40 MG tablet Take 40 mg by mouth daily Coloplast barrier cream CREA Apply 1 Dose topically 2 times daily. Cyanocobalamin (VITAMIN B-12 PO) Take 1,000 mcg by mouth daily cyanocobalamin (VITAMIN B-12) 1000 MCG tablet Take 1,000 mcg by mouth daily docusate sodium (COLACE) 100 MG capsule Take 100 mg by mouth 2 times daily as needed for constipation Estradiol (ESTRACE VA) Place 0.01 % vaginally twice a week furosemide (LASIX) 40 MG tablet Take 40 mg by mouth 2 times daily hydrocortisone 1 % CREA cream Place rectally 2 times daily. hypromellose (ARTIFICIAL TEARS) 0.5 % SOLN ophthalmic solution Place 2 drops into both eyes 2 timesdaily as needed for dry eyes ibuprofen (ADVIL/MOTRIN) 400 MG tablet Take 400 mg by mouth every 8 hours as needed for moderate pain metoprolol tartrate (LOPRESSOR) 50 MG tablet Take 50 mg by mouth daily mirtazapine (REMERON) 45 MG tablet Take 45 mg by mouth at bedtime nicotine (COMMIT) [address] 1 lozenge (2 mg) inside cheek every hour as needed for smokingcessation omeprazole (PRILOSEC) [address] capsule Take 20 mg by mouth daily phenytoin (DILANTIN) 100 MG ER capsule Take 100 mg by mouth 2 times daily 200 mg at hs polyethylene glycol (MIRALAX) 17 GM/Dose powder Take 17 g by mouth daily (Patient taking differently: Take 17 g by mouth daily as needed ) 510 g Potassium Chloride 40 MEQ/15ML (20%) SOLN Take 20 mEq by mouth daily pregabalin (LYRICA) 300 MG capsule Take 1 capsule (300 mg) by mouth 2 times daily. 60 capsule 5 rOPINIRole (REQUIP ER) 2 MG 24 hr tablet Take 2.5 mg by mouth daily rotigotine (NEUPRO) 2 MG/24HR [address] 1 patch onto the skin daily SUMAtriptan (IMITREX) 100 MG tablet TAKE 1 TABLET BY MOUTH AT ONSET OF HEADACHE Dr Juan David Garcia DO, neurologist 9 tablet 0 Suvorexant (BELSOMRA) 20 MG tablet Take 1 tablet (20 mg) by mouth at bedtime. 30 tablet 5 vitamin D3 (CHOLECALCIFEROL) 50 mcg (2000 units) tablet Take 1 tablet by mouth daily REVIEW OF SYSTEMS: No chest pain, shortness of breath, fevers, chills, headache, nausea, vomiting, dysuria or bowel abnormalities. Appetite is normal. No pain except Les at times. Objective: BP 110/67 Pulse 65 Resp 16 Ht 1.626 m (5' 4) LMP (LMP Unknown) SpO2 95% BMI 30.90 kg/m?? Exam: GENERAL APPEARANCE: Alert, in no distress, cooperative ENT: Mouth and posterior oropharynx normal, moist mucous membranes, [place] EYES: EOM, conjunctivae, lids, pupils and irises normal, PERRL RESP: respiratory effort and palpation of chest normal, lungs clear to auscultation , no respiratory distress CV: Palpation and auscultation of heart done , regular rate and rhythm, no murmur, rub, or gallop, peripheral edema 2+ in LEs ABDOMEN: normal bowel sounds, soft, nontender, no hepatosplenomegaly or other masses, no guarding or rebound M/S: L hemiparesis. No apparent pain with ROM extremities SKIN: pink L axilla, 3 small superficial open areas NEURO: Cranial nerves 2-12 are normal tested and grossly at patient's baseline, no tremor PSYCH: affect and mood normal, no apparent anxiety Labs: Most Recent 3 CBC's: Recent Labs Lab Test 11/16/23 0618 07/25/23 0647 06/11/23 2053 WBC 7.1 7.9 7.2 HGB 9.6* 10.0* 10.9* MCV 77* 96 88 PLT 249 375 343 Most Recent 3 BMP's: Recent Labs Lab Test 11/16/23 0618 10/13/23 0630 10/06/23 0906 NA 144 141 140 POTASSIUM 4.4 4.2 4.3 CHLORIDE 105 101 99 CO2 29 28 29 BUN 21.0 13.9 13.0 CR 0.66 0.65 0.63 ANIONGAP 10 12 12 MICHELLE 9.0 9.2 9.2 GLC 109* 85 138* ASSESSMENT/PLAN: (W19.XXXA) Fall, initial encounter (primary encounter diagnosis) Comment: no apparent inj. Mechanical in nature, L hemiparesis Plan: 1. Monitor for increased pain 2. To get bedside pole to assist with transfers 3. Cont. PT (L30.4) Intertrigo Comment: ongoing. Worse at L axilla. Also has gen. pruritis Plan: 1. Start kathy protect to L axilla 2. Increase sched. Atarax to tid 3. Reassess for effectiveness over next couple weeks (I10) Hypertension, unspecified type Comment: BP stable. No dizziness Plan: 1. Cont lopressor 2. Follow Bps Hrs 3. 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 Assessment Noted Time PHQ-9 Depression Total Score: 9 02/18/20 21 7:30 AM MOLDING PLASTERER documented as of this encounter Care Teams Senior Clinical Research Associate Relationship Specialty Start Date End Date Davonte Juan APRN CNP [address] [place] [address] PCP - General Family Medicine 11/15/23 Brayden Du MD [address] [place] [address] [address] Neurology 05/06/22 Maya Alfaro MD [address] [place] [address] Internal Medicine 11/15/23 Kelsy Matthews [address] [place] [address] Geriatric Services Threading Machine Feeder Automatic 11/15/23 (Fgs), [facility] [address] [place] [phone] 11/15/23 Davonte Juan APRN ELEVATOR CONSTRUCTOR SUPERVISOR [address] [place] [address] Assigned PCP 11/18/23 documented as of this encounter
--- OUTSIDE RECORDS SUMMARY | 2024-01-16 16:05 | XMS_ITS | Encounter Summary ---
Author Organization [place] Address [address] [place] [address]. [place] [address] Care Team Providers Care Network Architect Name Role Phone Brayden Du MD Unavailable Davonte Juan APRN AMBULANCE ASSISTANT Primary Care Pr ovider Maya Alfaro MD Unavailable [phone] Kelsy Matthews Unavailable + (Fgs), [facility] shanta Apts Asst Living Unavailable Davonte Juan APRN AMBULANCE ASSISTANT Unavailable Reason for Visit * Reason Onset Date Comments Patient Request 01/03/2024 Encounter Details Date Type Department Care Team (Late st Contact Info) Description 01/03/2024 Telephone [facility] Geriatrics [address] [place] [address] Ritu Dennis, RN Patient Request Social History Tobacco Use Types Packs/Day Years [...] Sex Assigned at Female 02/28/2021 1:24 PM RUG LAYER Gender Identity Female 02/28/2021 1:23 PM RUG LAYER Sexual Orientation Straight 02/28/2021 1: 20 PM RUG LAYER documented as of this encounter Miscellaneous Notes * Telephone Encounter - Ritu Dennis RN - 01/03/2024 3:31 PM CDT [facility] Geriatrics Triage Nurse Telephone Encounter Provider: Davonte Juan APRN CNP Facility: [facility] Type: AL Caller: Luz Call Back Number: [phone] Allergies: Allergies Allergen Reactions Darvon-N [Propoxyphene Napsylate] Propoxyphene Other reaction(s): Seizures Reason for call: Nurse called to report that patient has been taking the PRN Hydroxyzine BID as ordered. Patient states that Hydroxyzine has really helped with the itching. Staff are wondering if themedication can be changed to scheduled? Verbal Order/Direction given by Provider: Change Hydroxyzine to BID. Keep PRN order in place for now to make sure insurance will cover the scheduled dose. 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 Assessment Noted Time PHQ-9 Depression Total Score: 9 02/18/20 21 7:30 AM RUG LAYER documented as of this encounter Care Teams Network Architect Relationship Specialty Start Date End Date Davonte Juan APRN CNP [address] [place] [address] PCP - General Family Medicine 11/15/23 Brayden Du MD [address] [place] [address] [id number], [place] [address] Neurology 05/06/22 Maya Alfaro MD [address] [place] [address] Internal Medicine 11/15/23 Kelsy Matthews [address] [place] [address] Geriatric Services Molder Feeder 11/15/23 (Fgs), [facility] Senior [facility] Living [address] [place] [phone] 11/15/23 Davonte Juan APRN AMBULANCE ASSISTANT [address] [place] [address] Assigned PCP 11/18/23 documented as of this encounter
--- OUTSIDE RECORDS SUMMARY | 2024-01-16 16:05 | XMS_ITS | Clinical Summary ---
Author Organization [facility] Address [place], [place] [address] Care Team Providers Care Master Sheet Clerk Name Role Phone Neelima Shukla DO Primary Care Provider Allergies Active Allergy Reactions Criticality Noted Date Comments Propoxyphene Seizures High 04/01/2006 Medications Medication Sig Dispensed Refills Start Date End Date Status multivitamin (Multi-Vitamin) tabletIndications:Th erapeutic Take 1 Tablet by mouth once daily. 0 10/20/2021 Active acetaminophen (TYLENOL EXTRA STRGTH) 500 mg tabletIndications:Mi graine without status migrainosus, not intractable, unspecified migraine type,Chronic pain syndrome Take 2 Tablets (1,000 mg) by mouth every 6 hours if needed for Pain or Headache. 0 10/20/2021 Active aspirin chewable 81 mg chewable tabletIndications:Th erapeutic Chew 1 Tablet (81 mg) by mouth once daily with a meal. 0 10/20/2021 Active calcium carbonate (TUMS) 200 mg calcium (500 mg) chewable tabletIndications:Th erapeutic Chew 1 Tablet (500 mg) by mouth 4 times daily if needed for Heartburn. 0 10/20/2021 Active nicotine 4 mg lozengeIndications:C igarette nicotine dependence without complication Place 1 Lozenge (4 mg) in mouth, between cheek & gum every hour while awake as needed for Nicotine Craving. Max 20 doses/day. 0 10/20/2021 Active wheelchairIndication s:Neuropathy,Left-si ded weakness Motorized Wheelchair. Length of need: 99 months. [place] [id number] Each 04/15/2022 Active omeprazole (PRILOSEC) 20 mg Delayed-Release capsuleIndications:G astroesophageal reflux disease, unspecified whether esophagitis present TAKE ONE CAPSULE BY MOUTH EVERY DAY IN THE MORNING. 90 Capsule 3 04/25/2022 Active folic acid 1 mg tabletIndications:Th erapeutic,Alcohol abuse Take 1 Tablet (1 mg) by mouth once daily. 90 Tablet 2 06/26/2022 Active cyanocobalamin (VITAMIN B12) 1,000 mcg tabletIndications:Vi tamin B12 deficiency TAKE 1 TABLET BY MOUTH DAILY 100 Tablet 2 01/04/2023 Active rotigotine 2 mg/24 hr (Neupro) 2 mg/24 hour patchIndications:Res tless legs syndrome Apply 1 Patch on dry, clean, hairless skin once daily. 30 Patch 11 01/10/2023 Active medication order composerIndications: Urinary urgency,Left hemiparesis (HC) Bedtime commode 1 unit 03/23/2023 Active docusate (COLACE) 100 mg capsuleIndications:C onstipation, acute Take 1 Capsule (100 mg) by mouth 2 times daily if needed for Constipation. 180 Capsule 1 03/23/2023 Active citalopram (CELEXA) 40 mg tabletIndications:Ge neralized anxiety disorder,MDD (major depressive disorder), recurrent, in full remission (HC) Take 1 Tablet (40 mg) by mouth once daily. 90 Tablet 04/21/2023 Active mirtazapine (REMERON) 45 mg tabletIndications:Ge neralized anxiety disorder,MDD (major depressive disorder), recurrent, in full remission (HC) Take 1 Tablet (45 mg) by mouth at bedtime. 30 Tablet 2 04/21/2023 Active Vitamin D-3 50 mcg (2,000 unit) capsuleIndications:V itamin D insufficiency TAKE 1 CAPSULE BY MOUTH DAILY 90 Capsule 3 04/25/2023 Active phenytoin extended (DILANTIN) 100 mg ER capsuleIndications:H istory of seizures Take 1 capsule by mouth every morning, 1 capsule every afternoon, and 2 capsules at bedtime. 120 Capsule 2 07/01/2023 Active calcium carbonate (OS-MICHELLE 500) 500 mg calcium (1,250 mg) tablet Take 500 mg by mouth once daily. Active ibuprofen (ADVIL; MOTRIN) 200 mg tablet Take 400 mg by mouth 3 times daily if needed. Active SUMAtriptan (IMITREX) 100 mg tablet Take 1 Tablet (100 mg) by mouth 2 times daily if needed for Migraine. Give at minimum 2hrs apart. Max Dose: 200mg per 24hrs. 07/20/2023 Active polyethylene glycoL (MIRALAX) 17 gram/scoop powder Mix 1 scoop (17 g) in liquid then take by mouth once daily. 08/30/2023 Active rOPINIRole (REQUIP) 0.5 mg tabletIndications:Re stless legs syndrome Take 5 Tablets (2.5 mg) by mouth at bedtime. 09/06/2023 Active estradioL (ESTRACE) 0.01% (0.1 mg/g) vaginal creamIndications:Uri nary urgency,Atrophic vaginitis 0.5 gram vaginal twice weekly on Tuesdays & Fridays. 07/27/2023 Active furosemide (LASIX) 40 mg tabletIndications:He patic steatosis Take 1 Tablet (40 mg) by mouth two times daily. 10/07/2023 Active potassium chloride 10 % liquid Take 15 mL (20 mEq) by mouth once daily with a meal. 10/12/2023 Active suvorexant (Belsomra) 20 mg tabletIndications:In somnia, idiopathic Take 20 mg by mouth at bedtime. 30 Tablet 10/18/2023 Active artificial tears, peg 400 0.4%-propylene glycol 0.3%, (SYSTANE) ophthalmic 2 gtts in each eye q 4hrs PRN 10/12/2023 Active pregabalin (LYRICA) 300 mg capsuleIndications:P eripheral sensory neuropathy Take 1 Capsule (300 mg) by mouth two times daily. 60 Capsule 11/02/2023 Active metoprolol tartrate (LOPRESSOR) 50 mg tabletIndications:Ta chycardia TAKE ONE TABLET BY MOUTH DAILY. HOLD IF SBP <90. Strength: 50 mg 07/20/2023 Active Active Problems Problem Noted Date Diagnosed Date Septic shock 07/10/2023 Urinary tract infection 07/10/2023 Cerebral aneurysm 01/13/2023 History of bacterial pneumonia 01/10/2023 Hepatic steatosis 06/08/2022 Mixed dyslipidemia 05/16/2022 Overview (05/16/2022): ASCVD 10 year risk 5%. Vitamin B12 [...] avm repair 09/08/2006 Restless legs syndrome 07/11/2006 Overview (05/27/2021): Restless Leg Syndrome Esophageal reflux 06/17/2006 Anxiety 04/01/2006 Insomnia, unspecified 04/01/2006 Overview (05/27/2021): Insomnia NOS Chronic lower back pain 04/15/2005 Headache(784.0) 04/15/2005 Memory loss 04/15/2005 Migraine, unspecified, witho ut mention of intractable migraine without mention of status migrainosus 03/08/2003 Overview (05/27/2021): LW Onset: [id number] ; Migraine Without Aura Resolved Problems Problem [...] or fe male climacteric states 05/27/2009 05/16/2022 Overview (05/27/2021): LW Onset: 02/2008 ; Menopause Nicotine addiction 03/16/2008 3 Other convulsions 09/08/2006 05/27/2021 Late effect of fracture of s kull and face bones 09/08/2006 05/16/2022 Other, mixed, or unspecified nondependent drug abuse, unspecified 04/01/2006 05/16/2022 Overview (04/01/2006): codeine, klonopin, soma Unspecified epilepsy without mention 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 05/27/2021 Overview (04/01/2006): first siezure age 20 Pneumonia of left lower lobe due to infectious organism 01/10/2023 Sepsis 05/16/2022 Dyspnea 05/16/2022 Encounters Date Type Department Care Team Description 11/12/2023 Nurse Triage [facility] [address] [place] [address] Anette Valencia MD Concerns 11/12/2023 Nurse Triage [facility] [address] [place] [address] Chanda Enriquez NP Fall 11/10/2023 Orders Only [facility] Scanner 1 scan: (1-Ord) [facility], 11/10/2023 11/10/2023 Nurse Triage [facility] [address] [place] [address] Anette Valencia MD Results 11/09/2023 11:15 AM CDT [address] [address] Anette Valencia MD Transitional Care Visit (Follow-up & TCU Discharge Summary) 11/09/2023 Orders Only [address] [address] Anette Valencia MD <No scans attached> 11/08/2023 Nurse Triage [address] [address] Anette Valencia MD Rash 11/02/2023 Orders Only [address] [address] Anette Valencia MD <No scans attached> 11/02/2023 Nurse Triage [address] [address] Chanda Enriquez NP Medication Management 11/01/2023 9:00 AM T [address] [address] Chanda Enriquez NP Transitional Care Visit (Follow up); Concerns (RLE - lingering rash, hydrocortisone lotion improved itchy symptoms but rash remains) 10/31/2023 Nurse Triage [address] [address] Chanda Enriquez NP Concerns 10/27/2023 9:30 AM T [address] [address] Chanda Enrqiuez NP Transitional Care Visit (MACHINE PROGRAMMER follow up) 10/27/2023 Travel 10/21/2023 Nurse Triage [address] [address] Chanda Enriquez NP Weight (3.4 lb weight gain) 10/18/2023 10:00 AM T [address] [address] Chanda Enriquez NP Transitional Care Visit (MACHINE PROGRAMMER follow up ) 10/18/2023 Refill [place] [id number] [place] [address] Nguyen Hernadez, ADRIANA Error-please disregard 10/18/2023 Travel 10/17/2023 Nurse Triage [address] [address] Chanda Enriquez, ADRIANA Medication Management 10/16/2023 Nurse Triage [address] [address] Mirian Bryant, ADRIANA Abnormal Lab Results from Last 3 Months Immunizations Name Administration [...] 09/01/2007 Tdap 09/19/2012,01/04/2006 Zoster (Shingrix-RZV, recombinant) 12/10/2019,,03/02/2019 Zoster (Zostavax-ZVL, live) 12/10/2019, 9 Family History Medical History Relation Name Comments Seizures Brother 1 No Known Problems Brother 2 No Known Problems Father No Known Problems Mother Seizures Other cousin No Known Problems Sister Relation Name Status Comments Brother 1 Brother 2 Alive Father Alive Mother Alive Other Sister Social History Tobacco Use Types Packs/Day Years [...] 2 07/09/2023 Food Insecurity Answer Date Recorded Do you worry your food will run out before you are able to buy more? 1 07/09/2023 Transportation Needs Answer Date Record ed Lack of Transportation (Medical) 2 07/09/2023 Housing Stability Answer Date Recorded What is your housing situation today? 1 07/09/2023 Sex and Gender Information Value Date Recorded Sex Assigned at Female 06/11/2022 6:26 AM CDT Gender Identity Female 06/11/2022 6:26 AM CDT Sexual Orientation Straight 06/11/2022 6: 26 AM CDT Obstetrics History Last Filed Vital Signs Vital Sign Reading Time Taken Comments Blood Pressure 103/68 08/04/2023 2:14 PM CDT Pulse 75 08/04/2023 2:14 PM CDT Temperature 36.7 ??C (98 ??F) 08/04/2023 10:31 AM CDT Respiratory Rate 16 08/04/2023 2:14 PM CDT Oxygen Saturation 97% 08/04/2023 2:14 PM CDT Inhaled Oxygen Concentration - - Weight 73.5 kg (162 lb) 08/04/2023 10:31 AM CDT Height 162.6 cm (5' 4) 08/04/2023 10:31 AM CDT Body Mass Index 27.81 08/04/2023 10:31 AM CDT Plan of Treatment Health Maintenance Due Date Last Done Comments Fecal testing sDNA-FIT ([place] guard) for age 45-75 2002 Mammogram for age 45-75 2002 DEXA/DXA scan for age 65+ 2022 Tetanus booster 09/19/2022 09/19/2012, 06/0 08/2007, 01/04/[address] (for lung CA) ag e 50-80 10/14/2022 10/14/2021 Medicare Wellness for age 65+ 05/14/2023 05/13/2022 COVID-19 vaccine series ( season) 2023 02/10/2022, 10/28/2021, 02/23/2021, Additional history exists Influenza for age 65+ 11/27/2023 02/10/2022 , 02/16/2021, 12/10/2019, Additional history exists BMI (ht and wt on same day) for age 18+ 01/11/2024 01/10/2023, 05/13/2022, 01/20/2022, Additional history exists Depression screening for age 12+ 04/24/2024 04/24/2023, 04/22/2023, 04/22/2023, Additional history exists Lipids for age 45-75 07/08/2028 07/09/2023, 05/13/19 23 Tdap Completed 09/19/2012, 01/04/2006 Zoster (shingles) series for age 50+ Completed 12/10/2019, 12/10/2019, 12/10/2019, Additional history exists Pneumococcal series for age 65+ Completed Hepatitis C screening for ag e 18-79 Completed 05/13/2022 Procedures Procedure Name Priority Date/Time Associated Diagnosis Comments SCAN-LABORATORY REPORT 11/10/2023 12:00 AM CDT LIPID PANEL BER[place] 07/09/2023 4:43 PM CDT LC HCV ANTIBODY RFX TO QUANT PCR Routine 05/13/2022 3:36 PM DRAGGER OUT Need for hepatitis C screening test CT CHEST ABDOMEN PELVIS W Routine 10/14/2021 1:13 PM CDT from Last 3 Months or Most Recently Relevant to Health Maintenance Results * SCAN-LABORATORY REPORT (11/10/2023 12:00 AM CDT) Scanner OTHER * (ABNORMAL) LIPID PANEL (07/09/2023 4:43 PM CDT) CHOLESTEROL,TOTAL 147 100 - 199 mg/dL 07/09/2023 7:43 PM CDT [facility] Comment: Cholesterol, Total Reference Ranges Desirable <200 mg/dL Borderline 200-239 mg/dL High >=240 mg/dL TRIGLYCERIDES 139 <150 mg/dL 07/09/2023 7:43 PM CDT [facility] HDL CHOLESTEROL 17(L) >40 mg/dL 7:43 PM CDT [facility] NON-HDL CHOLESTEROL 130 <145 mg/dl 07/09/2023 7:43 PM CDT [facility] CHOL/HDL RATIO 8.65(H) <4.50 07/09/2023 7:43 PM CDT [facility] LDL CHOLESTEROL 102 <=130 mg/dL 07/09/2023 7:43 PM CDT [facility] VLDL CHOLESTEROL 28 <=30 mg/dL 07/09/2023 7:43 PM CDT [facility] Blood BLOOD SPECIMEN / Unknown Non-Lab Venipuncture / Unknown 07/09/2023 4:43 PM CDT 07/09/2023 4:54 PM CDT Bennie TRACY CHEMISTRY [facility] [address] [place] [address], * LC HCV ANTIBODY RFX TO QUANT PCR (05/13/2022 3:36 PM DRAGGER OUT) HCV Ab Non Reactive Non Reactive 05/15/2022 10:06 PM DRAGGER OUT [facility] Blood BLOOD SPECIMEN / Unknown Venipuncture / Unknown 05/13/2022 3:36 PM DRAGGER OUT 05/13/2022 3:36 PM DRAGGER OUT Narrative [facility]) - 05/15/2022 10:06 PM DRAGGER OUT Performed at: ??01 - [facility] [address] [place], [place] ??[id number] Elevators Inspector: Ramses Stanford MD, Phone: ??[phone] Neelima Sue Gayla [facility] ([facility]) [facility] [place] [address], * CT CHEST ABDOMEN PELVIS W (10/14/2021 [...] CT CHEST ABDOMEN PELVIS W LOCATION: [facility] DATE/TIME: 10/14/2021 1:13 PM [...] CT CHEST ABDOMEN PELVIS W LOCATION: [facility] DATE/TIME: 10/14/2021 1:13 PM [...] on File) Date Activated Date Inactivated Comments 08/04/2023 9:23 AM 08/05/2023 2:12 AM Question Answer Comments Code Status Discussion: Reviewed Preferences * Full Code Date Activated Date Inactivated Comments 07/09/2023 4:00 PM 07/20/2023 5:14 PM Question Answer Comments Code Status Discussion: Reviewed Preferences * Full Code Date Activated Date Inactivated Comments 01/13/2023 6:22 PM 01/14/2023 3:41 PM Question Answer Comments Code Status Discussion: Reviewed Preferences * Full Code Date Activated Date Inactivated Comments 10/13/2021 11:04 PM 10/20/2021 4:12 PM Question Answer Comments Code Status Discussion: Reviewed Preferences Care Teams Master Sheet Clerk Relationship Specialty [place] [address] [place] [address] PCP - General Family Practice 02/22/22
--- OUTSIDE RECORDS SUMMARY | 2024-01-16 16:05 | XMS_ITS | Encounter Summary ---
Author Organization [facility] Address [address] [place] [address]. [place] [address] Care Team Providers Care Senior Construction Manager Name Role Phone Brayden Du MD Unavailable Davonte Juan APRN EDGER MACHINE SETTER Primary Care Pr ovider Maya Alfaro MD Unavailable [phone] Kelsy Matthews Unavailable + (Fgs), [facility] [place] [facility] Unavailable Davonte Juan APRN EDGER MACHINE SETTER Unavailable Reason for Visit * Reason Onset Date Comments Prior Auth - Medication 12/27/2023 hydrOXYz ine HCl (ATARAX) 25 MG tablet Encounter Details Date Type Department Care Team (Late st Contact Info) Description 12/27/2023 Telephone [facility] [address] [place] [phone] Davonte Juan APRN [address] [address] Prior Auth - Medication ( hydrOXYzine HCl (ATARAX) 25 MG tablet ) Social History Tobacco Use Types Packs/Day Years [...] Sex Assigned at Female 02/28/2021 1:24 PM CONSTRUCTION EQUIPMENT OPERATOR Gender Identity Female 02/28/2021 1:23 PM CONSTRUCTION EQUIPMENT OPERATOR Sexual Orientation Straight 02/28/2021 1: 20 PM CONSTRUCTION EQUIPMENT OPERATOR documented as of this encounter Miscellaneous Notes * Telephone Encounter - Nury Alexander - 12/27/2023 2:01 PM CDT Images from the original note were not included. Prior Authorization Approval Authorization Effective Date: 09/28/2023 Authorization Expiration Date: 12/26/2024 Medication: hydrOXYzine HCl (ATARAX) 25 MG tablet Reference #: Insurance Company: [employer] [place] - Which Pharmacy is filling the prescription (Not needed for infusion/clinic administered): [facility] [address] Pharmacy Notified: Yes Patient Notified: Instructed pharmacy to notify patient when script is ready to bean picker machine operator/ship. * Telephone Encounter - Nury Alexander - 12/27/2023 11:12 AM CDT Images from the original note were not included. Central Prior Authorization Team PA Initiation Medication: hydrOXYzine HCl (ATARAX) 25 MG tablet Insurance Company: [employer] [place] - Pharmacy Filling the Rx: [facility] [address] Filling Pharmacy Filling Pharmacy Fax: Start Date: 12/27/2023 * Telephone Encounter - Kelsy Matthews - 12/27/2023 11:07 AM CDT Images from the original note were not included. Prior Authorization Retail Medication Request Medication/Dose: hydrOXYzine HCl (ATARAX) 25 MG tablet Diagnosis and ICD code (if different than what is on RX): ICD-10 code L29.9. New/renewal/insurance change PA/secondary ins. 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 Assessment Noted Time PHQ-9 Depression Total Score: 9 02/18/20 21 7:30 AM CONSTRUCTION EQUIPMENT OPERATOR documented as of this encounter Care Teams Senior Construction Manager Relationship Specialty Start Date End Date Davonte Juan APRN EDGER MACHINE SETTER [address] [place] [address] PCP - General Family Medicine 11/15/23 Brayden Du MD [address] [place], [place] [id number], [place] [address] Neurology 05/06/22 [place] [address] [place] [address] Internal Medicine 11/15/23 Kelsy Matthews [address] [place] [address] Geriatric Services Refinery Technician 11/15/23 (Fgs), [facility] Senior [facility] [address] [place] [phone] 11/15/23 Davonte Juan APRN EDGER MACHINE SETTER [address] [place] [address] Assigned PCP 11/18/23 documented as of this encounter
--- OUTSIDE RECORDS SUMMARY | 2024-01-16 16:05 | XMS_ITS | Encounter Summary ---
Author Organization [facility] Address [address] [place] [address]. [place] [address] Care Team Providers Care Securities Compliance Examiner Name Role Phone Brayden Du MD Unavailable Davonte Juan APRN SLIP FEEDER Primary Care Pr ovider Maya Alfaro MD Unavailable [phone] Kelsy Matthews Unavailable + (Fgs), [facility] shanta A[facility] Asst Living Unavailable Davonte Juan APRN SLIP FEEDER Unavailable Encounter Details Date Type Department Care Team (Latest Contact Info) Description 01/06/2024 Travel Social History Tobacco Use Types Packs/Day [...] Sex Assigned at Female 02/28/2021 1:24 PM SANDWICH MAKER Gender Identity Female 02/28/2021 1:23 PM SANDWICH MAKER Sexual Orientation Straight 02/28/2021 1: 20 PM SANDWICH MAKER documented as of this encounter Plan of Treatment Not on file documented as of this encounter Visit Diagnoses Not on filedocumented in this encounter Additional Health Concerns 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 Assessment Noted Time PHQ-9 Depression Total Score: 9 02/18/20 21 7:30 AM SANDWICH MAKER documented as of this encounter Care Teams Securities Compliance Examiner Relationship Specialty Start Date End Date Davonte Juan APRN SLIP FEEDER [address] [place] [address] PCP - General Family Medicine 11/15/23 Brayden Du MD [address] [place] [id number] [address] Neurology 05/06/22 Maya Alfaro MD [address] [place] [address] Internal Medicine 11/15/23 Kelsy Matthews [address] [place] [address] Geriatric Services Sludge Filtration Attendant 11/15/23 (Fgs), [facility] Senior [facility] [address] [place] [phone] 11/15/23 Davonte Juan APRN SLIP FEEDER [address] [place] [address] Assigned PCP 11/18/23 documented as of this encounter
--- OUTSIDE RECORDS SUMMARY | 2024-01-16 16:05 | XMS_ITS | Clinical Summary ---
Author Organization [place] Address [address] [place] [address]. [place] [address] Care Team Providers Care Sales Representative Education Courses Name Role Phone Brayden Du MD Unavailable Davonte Juan APRN MULTI NEEDLE MACHINE OPERATOR Primary Care Pr ovider Maya Alfaro MD Unavailable [phone] Kelsy Matthews Unavailable + (Fgs), [facility] nior Apts Asst Living Unavailable Davonte Juan APRN MULTI NEEDLE MACHINE OPERATOR Unavailable Allergies Active Allergy Reactions Criticality Noted [...] on dilantin and sees neurology at [facility] History of migraine 09/19/2012 Resolved Problems Problem Noted Date Diagnosed Date Resolved Date Polysubstance abuse 09/04/2013 07/25/19 15 Alcohol abuse, episodic drinking behavior 08/30/2013 07/24/2014 Health Residential 09/19/2012 09/12/2023 Overview: State Tier Level: Tier 1 Status: N/A Clinical Medical Assistant: N/A See Letters for [facility] Care Plan Adjustment disorder with mix ed anxiety and depressed mood 09/19/2012 04/07/2016 Overview: Dxed at 20 y0 Encounters Date Type Department Care Team Description 01/06/2024 7:30 AM CDT Assisted Living Visit [address] [address] Davonte Juan APRN CNP Fall, initial encounter (Primary Dx); Intertrigo; Hypertension, unspecified type 01/06/2024 Travel 01/03/[address] [address] Ritu Dennis RN Patient Request 12/27/[address] [address] Davonte Juan APRN CNP Prior Auth - Medication ( hydrOXYzine HCl (ATARAX) 25 MG tablet ) 12/23/2023 7:00 AM CDT Assisted Living Visit [address] [address] Davonte Juan APRN CNP Decreased responsiveness (Primary Dx); Major depressive disorder, recurrent episode, moderate (H); Lymphedema 12/23/2023 Travel 12/20/[address] [address] Davonte Juan APRN CNP Prior Auth - Medication (hydrOXYzine HCl (ATARAX) 25 MG tablet) 12/13/[address] [address] Davonte Juan APRN CNP 12/06/2023 8:30 AM CDT Assisted Living Visit [address] [address] Davonte Juan APRN CNP Lymphedema (Primary Dx); Hypertension, unspecified type; Primary insomnia 12/06/2023 Travel 12/02/[address] [address] Davonte Juan APRN CNP 12/01/2023 Orders Only [address] [address] Davonte Juan APRN CNP DIAGNOSIS NOT YET DEFINED (Primary Dx) 11/23/[address] [address] Katie Chicas RN Dysuria 11/18/2023 8:30 AM CDT Assisted Living Visit [address] [address] Davonte Juan APRN CNP Left hemiparesis (H) (Primary Dx); Lymphedema; Dermatitis 11/18/2023 Travel 11/17/[address] [address] Ritu Dennis RN Refill Request 11/17/[address] [address] Ritu Dennis RN Refill Request 11/15/2023 8:00 AM CDT Assisted Living Visit [address] [address] Davonte Juan, LONG MULTI NEEDLE MACHINE OPERATOR Hypertension, unspecified type (Primary Dx); Lymphedema; Left hemiparesis (H); Chemical dependency (H); Major depressive disorder, recurrent episode, moderate (H); Seizure disorder (H); Idiopathic postprandial hypoglycemia; ACP (advance care planning) 11/15/2023 Travel 11/15/2023 Documentation Only [facility] [address] [place] [address] Kelsy Matthews Geriatrics Tracker from Last 3 Months Immunizations Name Administration [...] Sex Assigned at Female 02/28/2021 1:24 PM BRUSH OR BROOM CUTTER Gender Identity Female 02/28/2021 1:23 PM BRUSH OR BROOM CUTTER Sexual Orientation Straight 02/28/2021 1: 20 PM BRUSH OR BROOM CUTTER Last Filed Vital Signs Vital Sign Reading [...] 12/23/2023 8:04 AM CDT Plan of Treatment Health Maintenance Due Date Last Done Comments ANNUAL REVIEW OF HM ORDERS 1955 CT COLONOGRAPHY 1955 DEXA 1955 FIT 1955 FLEX SIG 1955 sDNA (Cologuard) 1955 COLONOSCOPY 06/14/1967 COLORECTAL CANCER SCREENING 06/14/1967 HEPATITIS A IMMUNIZATION (1 of 2 - Risk 2-dose series) 1976 URINE DRUG SCREEN 01/26/2007 01/26/2006 LUNG CANCER SCREENING 06/14/2007 MAMMO SCREENING 12/10/2019 12/09/2017, 06/26 (Declined) PHQ-9 08/16/2021 02/16/2021, 10/2020, 04/04/2019, Additional history exists NICOTINE/TOBACCO CESSATION COUNSELING Q 1 YR 02/16/2022 02/16/2021, 06/02/2020 LIPID 02/24/2022 02/24/2021, 10/2019, 03/31/2018, Additional history exists FALL RISK ASSESSMENT 2022 DTAP/TDAP/TD IMMUNIZATION (3 - Td or Tdap) 09/19/2022 09/19/2012, 01/04/2006 MEDICARE ANNUAL WELLNESS VISIT 05/13/2023 05/13/2022, 02/16/2021, 04/04/2019, Additional history exists COVID-19 Vaccine ( season) 2023 02/10/2022, 10/28/2021, 02/23/2021, Additional history exists INFLUENZA VACCINE (#1) 2023 , 02/16/2021, 12/10/2019, Additional history exists BMP 08/02/2024 08/03/2023, 06/27, 07/22/2023, Additional history exists GLUCOSE 01/08/2027 01/09/2024, 10/27, 10/13/2023, Additional history exists ADVANCE CARE PLANNING 11/14/2028 11/15/2023 , 10/23/2020, 10/23/2020, Additional history exists RSV VACCINE (1 - 1-dose 75+ series) 2032 HEPATITIS C SCREENING Completed 04/07/2016 PAP Discontinued [...] this topic Medical Devices Implanted Type Area Licensed Staff Mft Device Identifier Shelf Expiration Date Model / Serial / Lot Imp Scr Syn Lcp Dist 2.7x12mm Self Tap Ss 202 - [id number] Implanted:Qty: 1 on 10/24/2020 by Quentin Pritchett MD at [facility] Metallic Hardware/An chor Left: Ankle SYNTHES-STRATEC / / [id number] 21 Imp Scr Syn Lcp Dist 2.7x14mm Self Tap Ss 202.214 - [id number] Implanted:Qty: 1 on 10/24/2020 by Quentin Pritchett MD at [facility] Metallic Hardware/An chor Left: Ankle SYNTHES-STRATEC 202.214 / / [id number] 21 Imp Scr Syn Lcp Dist 2.7x16mm Self Tap Ss 202.216 - [id number] Implanted:Qty: 3 on 10/24/2020 by Quentin Pritchett MD at [facility] Metallic Hardware/An chor Left: Ankle SYNTHES-STRATEC 202.216 / / [id number] 21 Imp Scr Syn Cortex 2.7x32mm Self Tap Ss 202.832 - [id number] Implanted:Qty: 1 on 10/24/2020 by Quentin Pritchett MD at [facility] Metallic Hardware/An chor Left: Ankle SYNTHES-STRATEC 202.832 / / [id number] L2021 Imp Scr Syn 3.5x12mm Locking W/Stardrive Ss 212.102 - [id number] Implanted:Qty: 2 on 10/24/2020 by Quentin Pritchett MD at [facility] Metallic Hardware/An chor Left: Ankle SYNTHES-STRATEC 212.102 / / [id number] L2021 Imp Scr Syn Cortex 3.5x16mm Self Tap Ss 204.816 - [id number] Implanted:Qty: 1 on 10/24/2020 by Quentin Pritchett MD at [facility] Metallic Hardware/An chor Left: Ankle SYNTHES-STRATEC 204.816 / / [id number] L2021 Imp Scr Syn Cortex 3.5x28mm Self Tap Ss 204.828 - [id number] Implanted:Qty: 1 on 10/24/2020 by Quentin Pritchett MD at [facility] Metallic Hardware/An chor Left: Ankle SYNTHES-STRATEC 204.828 / / [id number] L2021 Imp Scr Syn Cortex 3.5x38mm Self Tap Ss 204.838 - [id number] Implanted:Qty: 1 on 10/24/2020 by Quentin Pritchett MD at [facility] Metallic Hardware/An chor Left: Ankle SYNTHES-STRATEC 204.838 / / [id number] L2021 Imp Scr Syn Can 4.0x40mm Long Thrd Ss 207.740 - [id number] Implanted:Qty: 1 on 10/24/2020 by Quentin Pritchett MD at [facility] Metallic Hardware/An chor Left: Ankle SYNTHES-STRATEC 207.740 / / [id number] L2021 Imp Wire Margarita 0.045x4 78.2020 - [id number] Implanted:Qty: 1 on 10/24/2020 by Quentin Pritchett MD at [facility] Wire Left: Ankle G SOURCE 78.202 / / 4.0mm Ti Locking Screww/T25 Implanted:Qty: 1 on 01/16/2014 by Bayron Can MD at [facility] Left: Humerus SYNTHES 08/27/2019 04.005.4 44S / / [id number] 4.5mm Ti Multiloc Screw 42mm Implanted:Qty: 1 on 01/16/2014 by Bayron Can MD at [facility] Left: Humerus SYNTHES 03/28/2022 04.019.0 42S / / [id number] 4.5mm Ti Mulitloc Screw 38mm Implanted:Qty: 1 on 01/16/2014 by Bayron Can MD at [facility] Left: Humerus SYNTHES 02/25/2022 04.019.0 38S / / [id number] 4.0mm Ti Locking Screw 24mm Implanted:Qty: 1 on 01/16/2014 by Bayron Can MD at [facility] Left: Humerus SYNTHES 08/26/2022 04.005.4 14S / / [id number] 4.0mm Ti Locking Screw 26mm Implanted:Qty: 1 on 01/16/2014 by Bayron Can MD at [facility] Left: Humerus SYNTHES 12/26/2021 04.005.4 16S / / [id number] Multiloc End Cap Implanted:Qty: 1 on 01/16/2014 by Bayron Can MD at [facility] Left: Humerus SYNTHES 11/26/2022 04.019.0 00S / / [id number] 4.5mmti Multiloc Screw 38mm Implanted:Qty: 1 on 01/16/2014 by Bayron Can MD at [facility] Left: Humerus SYNTHES 02/25/2023 04.019.0 38S / / [id number] 3.5mm Lcp Hook Plate Implanted:Qty: 1 on 10/24/2020 by Quentin Pritchett MD at [facility] Left: Ankle SYNTHES 02.113.1 03S / [id number] 2.7mm/3.5mm Lcp Posterolateral Distal Fibula Plates Implanted:Qty: 1 on 10/24/2020 by Quentin Pritchett MD at [facility] Left: Ankle SYNTHES 02.112.1 2 [id number] Procedures Procedure Name Priority Date/Time Associated Diagnosis Comments BASIC METABOLIC PANEL (OUTREACH) Routine 01/09/2024 10:04 AM CDT Edema, unspecified TRIP CHARGE - LAB ONLY Routine 01/09/2024 10:04 AM CDT Edema, unspecified BASIC METABOLIC PANEL NO GLUCOSE (OUTREACH) Routine 01/09/2024 10:04 AM CDT Edema, unspecified GLUCOSE (OUTREACH) Routine 01/09/2024 10 :04 AM CDT Edema, unspecified HEMOGLOBIN Routine 01/09/2024 10:04 AM CDT Edema, unspecified MS CERTIFICATION POLICE COMMISSIONER PATIENT Routine 12/01/2023 DIAGNOSIS NOT YET DEFINED [...] PANEL (BFP) Routine 02/24/2021 3:3 5 PM BRUSH OR BROOM CUTTER Mixed hyperlipidemia MA DIAGNOSTIC BILATERAL W/ JESSE Routine 12/09/2017 THINPREP PAP RFLX HPV MRNA E6/E7 ([facility]) Routine 03/04/2017 3:13 PM BRUSH OR BROOM CUTTER Encounter for gynecological examination without abnormal finding HEPATITIS C ANTIBODY Routine 04/07/2016 3:32 PM BRUSH OR BROOM CUTTER Need for hepatitis C screening test DRUG ABUSE SCREEN 8 URINE (UR) STAT 01/26/2006 2:35 PM BRUSH OR BROOM CUTTER from Last 3 Months or Most Recently Relevant to Health Maintenance Results * Trip Charge - LAB ONLY (01/09/2024 10:04 AM CDT) Only the most recent of3 resultswithin the time period is included. Other TOPOGRAPHY UNKNOWN / Unknown Billing only / Unknown 01/09/2024 10:04 AM CDT 01/09/2024 2:40 PM CDT Davonte Juan GLASS RIBBON MACHINE OPERATOR MULTI NEEDLE MACHINE OPERATOR LAB GUALBERTO GE PERFORMABLES [facility] [address] [place] [address], [facility] * (ABNORMAL) Basic Metabolic Panel No [...] 01/09/2024 2:40 PM CDT Davonte Juan LONG MULTI NEEDLE MACHINE OPERATOR LAB - BL OOD ORDERABLES LABORATORY [facility] Core Lab [address] [facility], [address] * Glucose (OUTREACH) (01/09/2024 10:04 AM CDT) Only the most recent of2 resultswithin the time period is included. Glucose 89 70 - 99 mg/dL 01/09/2024 7:26 PM CDT LABORATORY Blood STRUCTURE OF LEFT UPPER LIMB / Unknown Venipuncture / Unknown 01/09/2024 10:04 AM CDT 01/09/2024 2:40 PM CDT Davonte Juan LONG MULTI NEEDLE MACHINE OPERATOR LAB - BL OOD ORDERABLES Performing Organization Address City/[facility] Co de Phone Number LABORATORY [facility] Lab [address] [place] [address], [address] * (ABNORMAL) Hemoglobin (01/09/2024 10:04 AM CDT) Hemoglobin 10.5(L) 11.7 - 15.7 g/dL 01/09/2024 4:38 PM CDT LABORATORY Blood STRUCTURE OF LEFT UPPER LIMB / Unknown Venipuncture / Unknown 01/09/2024 10:04 AM CDT 01/09/2024 2:40 PM CDT Davonte Juan LONG MULTI NEEDLE MACHINE OPERATOR LAB - BL OOD ORDERABLES LABORATORY [facility] Lab [address] [facility], [address] * CERTIFICATION POLICE COMMISSIONER PATIENT (12/01/2023) Davonte Hassanprudencequan LONG MULTI NEEDLE MACHINE OPERATOR SPECIAL REPORTS * (ABNORMAL) UA with Microscopic [...] 11/23/2023 9:59 PM CDT [facility] Specific [place] Urine 1.013 1.003 - 1.035 11/23/2023 9:59 [...] PM CDT 11/23/2023 6:18 PM CDT Davonte Jun Juan APRN MULTI NEEDLE MACHINE OPERATOR LAB - UR INE ORDERABLES [facility] LABORATORY [facility] [place] Core Lab [address] [facility], [address] [place] [address], [facility] * (ABNORMAL) Urine Culture (11/23/2023 4:00 [...] pneumoniae Cefazolin JANICE <=4 ug/mL: Susceptible Comment:Cefazolin SC C breakpoints are for the treatment of uncomplicated urinary tract infections. For the treatment of systemic infections, please contact the laboratory for additional testing. Klebsiella pneumoniae Cefoxitin JANICE <=4 ug/mL: Susceptible Klebsiella pneumoniae Ceftazidime JANICE <=1 ug/mL: Susceptible Klebsiella pneumoniae Ceftriaxone JANICE [...] JANICE <=1/19 ug/mL: Susceptible Davonte Juan APRN MULTI NEEDLE MACHINE OPERATOR LAB - SC INDUCTION MACHINE OPERATOR GENERAL ORDERABLES [facility] IDD LABORATORY [facility] Inf. Diseases Diag. Lab [address] [facility], [address] [place] [id number] * (ABNORMAL) Hemoglobin A1c (11/16/2023 6:18 AM CDT) Pathologist [facility] Hemoglobin A1C 5.8(H) <5.7 % 11/16/2023 12:08 PM CDT [facility] Comment: Normal <5.7% Prediabetes 5.7-6.4% ?? Diabetes 6.5% or higher Note: Adopted from ADA consensus guidelines. Blood STRUCTURE OF RIGHT UPPER LIMB / Unknown Venipuncture / Unknown 11/16/2023 6:18 AM CDT 11/16/2023 8:09 AM CDT Davonte Juan APRN MULTI NEEDLE MACHINE OPERATOR LAB - BL OOD ORDERABLES [facility] LABORAT[facility] [place] Core Lab [address] [facility], Room [address] * (ABNORMAL) CBC with platelets (11/16/2023 6:18 AM CDT) Pathologist [facility] WBC Count 7.1 4.0 - 11.0 10e3/uL [...] CDT 11/16/2023 8:09 AM CDT Davonte Juan APRN MULTI NEEDLE MACHINE OPERATOR LAB - BL OOD ORDERABLES Performing Organization Address City/[facility] Co de Phone Number [facility] LABORATORY [facility] Lab [address] [facility], [address] * Insulin level (11/10/2023 6:33 AM CDT) Pathologist [facility] Insulin 5.7 2.6 - 24.9 uU/mL 11/10/2023 12:12 PM CDT [facility] LAB[facility] Blood STRUCTURE OF LEFT HAND / Unknown Venipuncture / Unknown 11/10/2023 6:33 AM CDT 11/10/2023 9:14 AM CDT Anette Valencia MD LAB - BLOOD ORDERABL ES Performing Organization Address [facility] de Phone Number LABORATORY [facility] Core Lab [address] [place] [address], [address] * Basic metabolic panel (08/03/2023 7:03 AM [...] LAB - BLOOD ORDERABL ES [facility] LABORATORY [facility] [place] Core Lab [address] [facility], [address] [id number] * (ABNORMAL) Lipid Panel (BFP) (02/24/2021 3:35 PM BRUSH OR BROOM CUTTER) Cholesterol 307(A) 0 - 199 mg/dL B[facility] INTERNAL Triglycerides 369(A) 0 - 149 mg/dL [facility] INTERNAL HDL Cholesterol 108 40 - 150 mg/dL [facility] INTERNAL LDL Cholesterol Direct 125 0 - 130 mg/dL [facility] INTERNAL Cholesterol/HDL Ratio 3 0 - 5 [facility] INTERNAL Blood 02/24/2021 3:35 PM BRUSH OR BROOM CUTTER Alek Jones MD LAB - NON-[employer] [facility] [employer] BLOOD LABS BFP INTERNAL * MA Diagnostic Bilateral w/Jesse (12/09/2017) MAMMOGRAM Anatomical Region Laterality Modality Breast Bilateral Other Narrative 12/09/2017 [facility] Phone: [phone] * Fax: [phone] [address] [place] [address] [place] [address] Age: 62 Y Dept No.: [id number] LEO MUELLER : 1955 Chart # Gender: F Req. Phys: Alek Jones MD Clinic MRN: Clinic: [facility] Acc#: [id number] Exam: MAMMOGRAM SCREENING JESSE BILATERAL Exam Date: [...] Signed by: DORA Thank You for choosing [facility] Imaging Page 1 of 1 Patient Reported IMG MAMMOGRAPHY ORDE RABZAID * ThinPrep Pap and HPV (mRNA E6/E7){HPV-REFLEX} ([facility]) (03/04/2017 3:13 PM BRUSH OR BROOM CUTTER) Clinical History None given [facility] [...] Comment:Negative for intraep ithelial lesion or malignancy. Construction Manager: SEE COMMENT [facility] Comment: ERP, CT(ASCP) CT Screening location: [facility] [address] [place], [place] ??[address] Cervical swab (specimen) 03/04/2017 3:13 PM BRUSH OR BROOM CUTTER 03/05/2017 2:58 AM BRUSH OR BROOM CUTTER Narrative Resulting Agency Comment Performing Organization Information: ? [place] ? [facility] ? [address] [place] [address] ? Lars Calderon M.D. Alek Jones MD LAB - NON-AGUSTIN KER NON-BLOOD Performing Organization Address City/[facility] Co de Phone Number [facility] [address] [place] [address] * Hepatits C antibody ([facility]) (04/07/2016 3:32 PM BRUSH OR BROOM CUTTER) HCV Antibody NON-REACTI VE NON-REACTI VE [facility] SIGNAL TO CUT OFF - [facility] 0.03 <1.00 [facility] Blood specimen (specimen) 04/07/2016 3:32 PM BRUSH OR BROOM CUTTER 04/08/2016 3:37 AM BRUSH OR BROOM CUTTER Narrative Resulting Agency Comment Performing Organization Information: ? [place] ? [facility] ? [address] [place] [address] ? Lars Calderon M.D. Alek Jones MD LAB - BLOOD O RDERABLES Performing Organization Address City/[facility] Co de Phone Number [facility] [address] [place] [address] * (ABNORMAL) Drug abuse screen 8 urine (UR) (01/26/2006 2:35 PM BRUSH OR BROOM CUTTER) Amphetamine Qual Urine Negative NEG MISYS Ethanol Qual Urine Negative NEG MISYS Opiates Qualitative Urine Positive(A) NEG MISYS PCP Qual Urine Negative NEG MISYS Benzodiazepine Qual Urine Negative NEG MISYS Barbiturates Qual Urine Negative NEG MISYS Cocaine Qual Urine Negative NEG MISYS Cannabinoids Qual Urine Negative NEG MISYS 01/26/2006 2:35 PM BRUSH OR BROOM CUTTER 01/26/2006 2:25 PM BRUSH OR BROOM CUTTER Russell Trinidad MD LAB - URINE ORDERABLES MISYS from Last 3 Months or Most Recently Relevant to Health Maintenance 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 Advance Directives For more information, please contact: [phone] * Full Code (Latest Code Status on File) Date Activated Date Inactivated Comments 10/24/2020 5:35 PM 10/27/2020 6:15 PM All basic and advanced life-sustaining interventions are performed as appropriate Question Answer Comments Code status determined by: Discussion with adenike nt/ legal decision maker * Full Code Date Activated Date Inactivated Comments 07/08/2015 3:13 PM 10/24/2020 10:14 AM * Full Code Date Activated Date Inactivated Comments 07/30/2014 8:35 PM 08/02/2014 6:38 PM * Full Code Date Activated Date Inactivated Comments 01/16/2014 5:45 PM 01/17/2014 4:33 PM Care Teams Sales Representative Education Courses Relationship Specialty Start Date End Date Davonte Juan APRN MULTI NEEDLE MACHINE OPERATOR [address] [place] [address] PCP - General Family Medicine 11/15/23 Brayden Du MD [address] [place] [address] [id number] [place] [address] Neurology 05/06/22 Maya Alfaro MD [address] [place] [address] Internal Medicine 11/15/23 Kelsy Matthews [address] [place] [address] Geriatric Services Emblem Maker 11/15/23 (Fgs), [facility] Senior Apts Asst Living [address] [place] [address] 11/15/23 Davonte Juan APRN MULTI NEEDLE MACHINE OPERATOR [address] [place] [address] Assigned PCP 11/18/23
--- OUTSIDE RECORDS SUMMARY | 2024-01-16 16:06 | XMS_ITS | Encounter Summary ---
Author Organization [place] Address [address] [place] [address]. [place] [address] Care Team Providers Care Plate Stacker Name Role Phone Brayden Du MD Unavailable Alexa Simon PA-C Unavailable [phone] Davonte Juan APRN [facility] Primary Care Pr ovider Maya Alfaro MD Unavailable [phone] eKlsy Matthews Unavailable (Fgs), [facility] Apts Asst Living Unavailable Reason for Visit * Reason Onset Date Comments Refill Request 11/17/2023 Encounter Details Date Type Department Care Team (Late st Contact Info) Description 11/17/2023 Refill [facility] [address] [place] [address] Ritu Dennis, RN Refill Request Social History Tobacco Use Types Packs/Day [...] Sex Assigned at Female 02/28/2021 1:24 PM DATA PROCESSING AUDITOR Gender Identity Female 02/28/2021 1:23 PM DATA PROCESSING AUDITOR Sexual Orientation Straight 02/28/2021 1: 20 PM DATA PROCESSING AUDITOR documented as of this encounter Plan of Treatment Not on file documented as of this encounter Visit Diagnoses Diagnosis Chronic pain disorder- Primary Chronic pain syndrome documented in this encounter Additional Health Concerns 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 Assessment Noted Time PHQ-9 Depression Total Score: 9 02/18/20 21 7:30 AM DATA PROCESSING AUDITOR documented as of this encounter Care Teams Plate Stacker Relationship Specialty Start Date End Date Davonte Juan APRN UX ENGINEER [address] [place] [address] PCP - General Family Medicine 11/15/23 Brayden Du MD [address] [place] [address] [address] Neurology 05/06/22 Alexa Simon PA-C [facility] [address] [address] [place] [address] Assigned PCP 07/19/23 11/17/23 Maya Alfaro MD [address] [place] [address] Internal Medicine 11/15/23 Kelsy Matthews [address] [place] [address] Geriatric Services Field Application Engineer 11/15/23 (Fgs), [place] [facility] [address] [place] [phone] 11/15/23 documented as of this encounter
--- OUTSIDE RECORDS SUMMARY | 2024-01-16 16:06 | XMS_ITS | Encounter Summary ---
Author Organization [facility] Address [address] [place] [address] Care Team Providers Care Pipe Insulator Helper Name Role Phone Brayden Du MD Unavailable Davonte Juan APRN REAL ESTATE ADMINISTRATIVE ASSISTANT Primary Care Pr ovider Maya Alfaro MD Unavailable [phone] Kelsy Matthews Unavailable + (Fgs), [facility] shanta Apts Asst Living Unavailable Davonte Juan APRN REAL ESTATE ADMINISTRATIVE ASSISTANT Unavailable Reason for Visit * Reason Comments Edema Encounter Details Date Type Department Care Team (Late st Contact Info) Description 12/06/2023 8:30 AM CDT Assisted Living Visit [facility] [address] [place] [address] Davonte Juan APRN CNP [address] [place] [address] Lymphedema (Primary Dx); Hypertension, unspecified type; Primary insomnia Social History Tobacco Use Types Packs/Day Years [...] Sex Assigned at Female 02/28/2021 1:24 PM COMBER OPERATOR Gender Identity Female 02/28/2021 1:23 PM COMBER OPERATOR Sexual Orientation Straight 02/28/2021 1: 20 PM COMBER OPERATOR documented as of this encounter Last Filed Vital Signs Vital Sign Reading Time Taken Comments Blood Pressure 100/54 12/06/2023 9:06 AM CDT Pulse 71 12/06/2023 9:06 AM CDT Temperature - - Respiratory Rate 16 12/06/2023 9:06 AM CDT Oxygen Saturation 94% 12/06/2023 9:06 AM CDT Inhaled Oxygen Concentration - - Weight - - Height 162.6 cm (5' 4) 12/06/2023 9:06 AM CDT Body Mass Index - - documented in this encounter Progress Notes * Davonte Juan, LONG REAL ESTATE ADMINISTRATIVE ASSISTANT - 12/06/2023 8:30 AM CDT [facility] [[id number]] Chief Complaint Patient presents with Edema HPI: Sultana Mueller is a 68 year old (1955), who is being seen today for an episodic care visit. HPI information obtained from: facility chart records, facility staff, patient report, and [facility] chart review. Today's concern is: Lymphedema, HTN, insomnia. Has lymphedema-ongoing. Taking lasix. Does not always wear comp. Stockings-worn out. Working with PT. Has pruritus of all 4 ext. For HTN cont. On metoprolol. HR stable. BP lower. Reports ok fluid intake. Admission wt. 180 lbs. No recent wt. Reports insomnia past couple nights. Completed cipro course for UTI. For RLS cont. On Neupro, ropinirole. For insomnia taking remero n, belsomra. Past Medical and Surgical History reviewed in [facility] today. MEDICATIONS: Current Outpatient Medications Medication Sig Dispense Refill camphor-menthol (DERMASARRA) 0.5-0.5 % external lotion Apply 1 applicator topically 2 times daily. acetaminophen (TYLENOL) 500 MG tablet Take 2 tablets (1,000 mg) by mouth 3 times daily aspirin (ASA) 81 MG chewable tablet Take 81 mg by mouth daily calcium carbonate (TUMS) 500 MG chewable tablet Take 1 tablet (500 mg) by mouth daily citalopram (CELEXA) 40 MG tablet Take 40 [...] mg) by mouth at bedtime. 30 tablet 0 vitamin D3 (CHOLECALCIFEROL) 50 mcg (2000 units) tablet Take 1 tablet by mouth daily REVIEW OF SYSTEMS: No chest pain, shortness of breath, fevers, chills, headache, nausea, vomiting, dysuria or bowel abnormalities. Appetite is normal. No pain except occ LEs. Objective: BP 100/54 Pulse 71 Resp 16 Ht 1.626 m (5' 4) LMP (LMP Unknown) SpO2 94% BMI 30.90 kg/m?? Exam: GENERAL APPEARANCE: Alert, in no distress, cooperative ENT: Mouth and posterior oropharynx normal, moist mucous membranes, NINILCHIK EYES: EOM, conjunctivae, lids, pupils and irises normal, PERRL RESP: respiratory effort and palpation of chest normal, lungs clear to auscultation , no respiratory distress CV: Palpation and auscultation of heart done , regular rate and rhythm, no murmur, rub, or gallop, peripheral edema 2+ in LEs ABDOMEN: normal bowel sounds, soft, nontender, no hepatosplenomegaly or other masses, no guarding or rebound M/S: muscle strength 5/5 all 4 ext. Gen. LE weakness, L>R NEURO: Cranial nerves 2-12 are normal tested [...] 9.2 9.2 GLC 109* 85 138* ASSESSMENT/PLAN: (I89.0) Lymphedema (primary encounter diagnosis) Comment: ongoing LE edema Plan: 1. Cont. Lasix 2. Start wts 2x/week 3. PT to order new comp. Stockings. 4. Start sarna lotion for pruritus of extremities (I10) Hypertension, unspecified type Comment: BP sl lower Plan: 1. Cont. Metoprolol 2. Follow Bps, Hrs 3. For SBPs < 90 hold metoprolol 4 hgb, bmp in next 1-3 mos (F51.01) Primary insomnia Comment: s/s past 2 nights. Completed cipro for UTI. Plan: 1. Cont. PT, increased daytime activity level 2. Cont. Belsomra, remeron 3. Cont. Neupro, ropinirole 4. Reassess over next week, for ongoing s/s may try alt. 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 Assessment Noted Time PHQ-9 Depression Total Score: 9 02/18/20 21 7:30 AM COMBER OPERATOR documented as of this encounter Care Teams Pipe Insulator Helper Relationship Specialty Start Date End Date Davonte Juan APRN CNP [facility] [place] [address] PCP - General Family Medicine 11/15/23 Brayden Du MD [address] [place] [address] [id number] [place] [address] Neurology 05/06/22 Maya Alfaro MD [address] [place] [address] Internal Medicine 11/15/23 Kelsy Matthews [address] [place] [address] Geriatric Services Security Police Officer 11/15/23 (Fgs), [facility] Senior Apts Asst Living [address] [place] [phone] 11/15/23 Davonte Juan APRN REAL ESTATE ADMINISTRATIVE ASSISTANT [address] [place] [address] Assigned PCP 11/18/23 documented as of this encounter
--- OUTSIDE RECORDS SUMMARY | 2024-01-16 16:06 | XMS_ITS | Encounter Summary ---
Author Organization [facility] Address [facility] [place] [address] Care Team Providers Care Technical Photographer Name Role Phone Rose Pelletier PERSONAL PROPERTY APPRAISER Unavailable [phone] Alek Jones MD Primary Care Provide r Alek Jones MD Unavailable [phone] Alek Jones MD Unavailable [phone] Alexa Simon PA-C Unavailable + [phone] Alexa Simon PA-C Unavailable [phone] Alek Jones MD Unavailable [phone] Center(Fgs), [facility] Unavailable Alexa Simon PA-C Unavailable + [phone] Alek Jones MD Unavailable [phone] Neelima Shukla DO Primary Care Provider [phone] Brayden Du MD Unavailable [place] LakeAlexa ornelas PA-C Unavailable + [phone] Davonte Juan APRN GREY WASHER Primary Care Pr ovider + Maya Alfaro MD Unavailable [phone] Kelsy Matthews Unavailable + (Fgs), [facility] shanta Apts Asst Living Unavailable Davonte Juan APRN GREY WASHER Unavailable Reason for Visit * Reason Comments Medication Refill Encounter Details Date Type Department Care Team (Late st Contact Info) Description 10/11/2016 Refill [facility] [address] [place] [address] Alek Jones MD [address], [address] [place] [address] Medication Refill Social History Tobacco Use Types Packs/Day Years Used Date Smoking Tobacco: Former Smokeless Tobacco: Never Alcohol Use Standard Drinks/Week Comments No 0 (1 standard drink = 0.6 oz pur e alcohol) Sex and Gender Information Value Date Recorded Sex Assigned at Female 02/28/2021 1:24 PM SUPERVISOR BOILER REPAIR Gender Identity Female 02/28/2021 1:23 PM SUPERVISOR BOILER REPAIR Sexual Orientation Straight 02/28/2021 1: 20 PM SUPERVISOR BOILER REPAIR documented as of this encounter Miscellaneous Notes * Telephone Encounter - Brooklyn Celestin - 10/11/2016 11:14 AM CDT Message left for Pt that a 30 day Rx refill was authorized, and pt should schedule a non fasting OV. * Telephone Encounter - Ana Mueller MA - 10/11/2016 8:31 AM CDT [facility] in [facility] Celexa Pt is due for ov NON fasting Jayna [phone] (home) documented in this encounter Plan of Treatment Not on file documented as of this encounter Visit Diagnoses Diagnosis USAMA (generalized anxiety disorder) Generalized anxiety disorder Major depressive disorder, recurrent episode, moderate (H) Major depressive disorder, recurrent episode, moderate documented in this encounter Additional Health Concerns Infection Onset Date Last Indicated Resolved Time 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/07/2020 11/07/2020 11/09/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 Assessment Noted Time PHQ-9 Depression Total Score: 13 017 7:16 AM SUPERVISOR BOILER REPAIR documented as of this encounter Care Teams Technical Photographer Relationship Specialty Start Date End Date Alek Jones MD [address] [address] PCP - General Family Practice 03/18/16 01/11/22 [place] [address] [place] [address] PCP - General Family Medicine 01/12/22 11/14/23 Davonte Juan APRN CNP [address] [place] [address] PCP - General Family Medicine 11/15/23 Rose Pelletier, [facility] Bolt Machine Operator 09/19/14 07/10/20 Alek Jones MD [address] [place] [address] Assigned PCP 04/08/19 05/24/20 Alek Jones MD [address], [address] [address] Assigned PCP 12/25/17 03/31/19 Alexa Simon PA-C [address] [address] Assigned PCP 04/01/19 04/07/19 Alexa Simon PA-C [address] [place] [address] Assigned PCP 05/25/20 06/07/20 Alek Jones MD [address] [address] Assigned PCP 06/08/20 02/14/21 [place]), [address] [address] Assisted Facility 10/27/20 11/14/20 Alexa Simon PA-C [address] [address] Assigned PCP 02/15/21 02/28/21 Alek Jones MD [address], [address] [address] Assigned PCP 03/01/21 07/18/23 Brayden Du MD [address] [place] [address] [id number] [place] [address] Neurology 05/06/22 Alexa Simon PA-C [address], [address] [address] Assigned PCP 07/19/23 11/17/23 Maya Alfaro MD [address] [place] [address] Internal Medicine 11/15/23 Kelsy Matthews [address] [place] [address] Geriatric Services Test Deck Supervisor 11/15/23 (Fgs), [facility] Senior Apts Asst Living [address] [place] [address] 11/15/23 Davonte Juan, LONG GREY WASHER [address] [place] [address] Assigned PCP 11/18/23 documented as of this encounter
--- OUTSIDE RECORDS SUMMARY | 2024-01-16 16:06 | XMS_ITS | Encounter Summary ---
Author Organization [place] Address [address] [place] [address] Care Team Providers Care Dimensional Engineer Name Role Phone Alek Jones MD Primary Care Provide r Alek Jones MD Unavailable [phone] [place]([facility]gs), [facility] Unavailable Alexa Simon PA-C Unavailable + [phone] Alek Jones MD Unavailable [phone] Neelima Shukla DO Primary Care Provider [phone] Brayden Du MD Unavailable Alexa Simon PA-C Unavailable + [phone] Davonte Juan APRN UNIX ANALYST Primary Care Pr ovider Maya Alfaro MD Unavailable [phone] Kelsy Matthews Unavailable + (Fgs), [facility] shanta Apt Asst Living Unavailable Davonte Juan APRN UNIX ANALYST Unavailable Encounter Details Date Type Department Care [...] Sex Assigned at Female 02/28/2021 1:24 PM LOOPER FIXER Gender Identity Female 02/28/2021 1:23 PM LOOPER FIXER Sexual Orientation Straight 02/28/2021 1: 20 PM LOOPER FIXER documented as of this encounter Plan of Treatment Not on file documented as of this encounter Visit Diagnoses Not on filedocumented in this encounter Additional Health Concerns Infection Onset Date Last Indicated Resolved Time 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/07/2020 11/07/2020 11/09/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 Assessment Noted Time PHQ-9 Depression Total Score: 11 021 3:32 PM LOOPER FIXER documented as of this encounter Care Teams Dimensional Engineer Relationship Specialty Start Date End Date Alek Jones MD [address] [address] PCP - General Family Practice 03/18/16 01/11/22 [place] [address] [place] [address] PCP - General Family Medicine 01/12/22 11/14/23 Davonte Juan APRN UNIX ANALYST [address] [place] [address] PCP - General Family Medicine 11/15/23 Alek Jones MD [address] [place] [address] Assigned PCP 06/08/20 02/14/21 Center(Fgs), [facility] [id number] [place] [phone] Senior Care Facility 10/27/20 11/14/20 Alexa Simon PA-C [address] , [facility] [address] [place] [address] Assigned PCP 02/15/21 02/28/21 Alek Jones MD [address], [address] [address] Assigned PCP 03/01/21 07/18/23 Brayden Du MD [address] [place] [address] [id number] [address] MD Reynolds 05/06/22 Alexa Simon PA-C [address], [address] [address] Assigned PCP 07/19/23 11/17/23 Maya Alfaro MD [address] [place] [address] Internal Medicine 11/15/23 Kelsy Matthews [address] [place] [address] Geriatric Services Promotions Representative 11/15/23 (Fgs), [facility] Senior Apts Asst Living [address] [place] [phone] 11/15/23 Davonte Juan APRN UNIX ANALYST [address] [place] [address] Assigned PCP 11/18/23 documented as of this encounter
--- OUTSIDE RECORDS SUMMARY | 2024-01-16 16:06 | XMS_ITS | Encounter Summary ---
Author Organization [facility] Address [address] [place] [address]. [place] [address] Care Team Providers Care Cath Lab Radiology Technician Name Role Phone Brayden Du MD Unavailable Alexa Simon PANamrata Unavailable [phone] Davonte Juan APRN [facility] Primary Care Pr ovider Maya Alfaro MD Unavailable [phone] Kelsy Matthews Unavailable (Fgs), [facility] Apts Asst Living Unavailable Reason for Visit * Reason Comments Geriatrics Tracker Encounter Details Date Type Department Care Team (Late st Contact Info) Description 11/15/2023 Documentation Only [facility] Geriatrics [address] [place] [phone] 345 Kelsy Matthews [address] [place] [phone] Geriatrics Tracker Social History Tobacco Use Types Packs/Day Years [...] Sex Assigned at Female 02/28/2021 1:24 PM LIFE SCIENTIST Gender Identity Female 02/28/2021 1:23 PM LIFE SCIENTIST Sexual Orientation Straight 02/28/2021 1: 20 PM LIFE SCIENTIST documented as of this encounter Plan of Treatment Not on file documented as of this encounter Visit Diagnoses Not on filedocumented in this encounter Additional Health Concerns 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 Assessment Noted Time PHQ-9 Depression Total Score: 9 02/18/20 21 7:30 AM LIFE SCIENTIST documented as of this encounter Care Teams Cath Lab Radiology Technician Relationship Specialty Start Date End Date Davonte Juan APRN CNP [address] [place] [address] PCP - General Family Medicine 11/15/23 Brayden Du MD [address] [facility] [place] [address] Neurology 05/06/22 Alexa Simon PA-C [address] , [facility] [place] [address] Assigned PCP 07/19/23 11/17/23 Maya Alfaro MD [address] [place] [address] Internal Medicine 11/15/23 Kelsy Matthews [address] [place] [address] Geriatric Services Stretching Machine Operator 11/15/23 (Fgs), [facility] Senior Apts Asst Living [address] [place] [phone] 11/15/23 documented as of this encounter
--- OUTSIDE RECORDS SUMMARY | 2024-01-16 16:06 | XMS_ITS | Encounter Summary ---
Author Organization [facility] Address [address] [place] [address] Care Team Providers Care Trim Attacher Name Role Phone Brayden Du MD Unavailable Davonte Juan APRN AUTOGRAPHER Primary Care Pr ovider Maya Alfaro MD Unavailable [phone] Kelsy Matthews Unavailable + (Fgs), [facility] Apts Asst Living Unavailable Davonte Juan APRN, CNP Unavailable Encounter Details Date Type Department Care Team (Late st Contact Info) Description 12/02/2023 Telephone [facility] Geriatric[facility] [address] [place] [address] Davonte Juan APRN AUTOGRAPHER [address] [place], [place] [phone] Social History Tobacco Use Types Packs/Day Years [...] Sex Assigned at Female 02/28/2021 1:24 PM FLAT FOLDER Gender Identity Female 02/28/2021 1:23 PM FLAT FOLDER Sexual Orientation Straight 02/28/2021 1: 20 PM FLAT FOLDER documented as of this encounter Plan of Treatment Not on file documented as of this encounter Visit Diagnoses Diagnosis Chronic pain disorder Chronic pain syndrome documented in this encounter Additional Health Concerns 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 Assessment Noted Time PHQ-9 Depression Total Score: 9 02/18/20 21 7:30 AM FLAT FOLDER documented as of this encounter Care Teams Trim Attacher Relationship Specialty Start Date End Date Davonte Juan APRN AUTOGRAPHER [address] [place] [address] PCP - General Family Medicine 11/15/23 Brayden Du MD [address] [place], [place] [address] [address] Neurology 05/06/22 Maya Alfaro MD [address] [place] [address] Internal Medicine 11/15/23 Kelsy Matthews [address] [place] [address] Geriatric Services Wrapper Leaf Inspector 11/15/23 (Fgs), [facility] Senior Apts Asst Living [address] [place] [phone] 11/15/23 Davonte Juan APRN AUTOGRAPHER [address] [place] [address] Assigned PCP 11/18/23 documented as of this encounter
--- OUTSIDE RECORDS SUMMARY | 2024-01-16 16:06 | XMS_ITS | Encounter Summary ---
Author Organization [place] Address [address] [place] [address]. [place] [address] Care Team Providers Care Automobile Inspector Name Role Phone Rose Pelletier CAT HOOKER Unavailable [phone] Alek Jones MD Primary Care Provide r Alek Jones MD Unavailable [phone] Center(Fgs), [facility] Unavailable Alexa Simon PA-C Unavailable + [phone] Alek Jones MD Unavailable [phone] Neelima Suhkla DO Primary Care Provider [phone] Brayden Du MD Unavailable Alexa Simon PA-C Unavailable + [phone] Davonte Juan APRN HEAD BUTLER Primary Care Pr ovider Maya Alfaro MD Unavailable [phone] Kelsy Matthews Unavailable + ([facility]), [facility] Unavailable Davonte Juan APRN HEAD BUTLER Unavailable Encounter Details Date Type Department Care [...] Sex Assigned at Female 02/28/2021 1:24 PM VAMP CUT OUT WORKER Gender Identity Female 02/28/2021 1:23 PM VAMP CUT OUT WORKER Sexual Orientation Straight 02/28/2021 1: 20 PM VAMP CUT OUT WORKER documented as of this encounter Plan of Treatment Not on file documented as of this encounter Visit Diagnoses Not on filedocumented in this encounter Additional Health Concerns Infection Onset Date Last Indicated Resolved Time 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/07/2020 11/07/2020 11/09/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 Assessment Noted Time PHQ-9 Depression Total Score: 11 021 3:32 PM VAMP CUT OUT WORKER documented as of this encounter Care Teams Automobile Inspector Relationship Specialty Start Date End Date Alek Jones MD [address] [place] [address] PCP - General Family Practice 03/18/16 01/11/22 [place] [address] [place] [address] PCP - General Family Medicine 01/12/22 11/14/23 Davonte Juan APRN CNP [address] [place] [address] PCP - General Family Medicine 11/15/23 Rose Pelletier, CAR Dental Scheduler 09/19/14 07/10/20 Alek Jones MD [address] , [address] [address] Assigned PCP 06/08/20 02/14/21 [place](s), [address] [address] Group Home Facility 10/27/20 11/14/20 Alexa Simon PA-C [address], [address] [address] Assigned PCP 02/15/21 02/28/21 Alek Jones MD [address], [address] [address] Assigned PCP 03/01/21 07/18/23 Brayden Du MD 9 [facility] [address] Neurology 05/06/22 Alexa Simon PA-C [address], [address] [address] Assigned PCP 07/19/23 11/17/23 Maya Alfaro MD [address] [place] [address] Internal Medicine 11/15/23 Kelsy Matthews [address] [place] [address] Geriatric Services Manager Emergency 11/15/23 (Fgs), [facility] Senior Apts Asst Living [address] [place] [phone] 11/15/23 Davonte Juan APRN HEAD BUTLER [address] [place] [address] Assigned PCP 11/18/23 documented as of this encounter
--- OUTSIDE RECORDS SUMMARY | 2024-01-16 16:06 | XMS_ITS | Encounter Summary ---
Author Organization [place] Address [address] [place] [address] Care Team Providers Care Carton Counter Feeder Name Role Phone Brayden Du MD Unavailable Davonte Juan APRN STOCK PREPARATION SUPERVISOR Primary Care Pr ovider Maya Alfaro MD Unavailable [phone] Kelsy Matthews Unavailable + (Fgs), [facility]anta Apts Asst Living Unavailable Davonte Juan APRN STOCK PREPARATION SUPERVISOR Unavailable Encounter Details Date Type Department Care Team (Late st Contact Info) Description 12/01/2023 [facility] Geriatrics [address] [place] [address] Davonte Juan APRN CNP [address] [place], [place] [phone] DIAGNOSIS NOT YET DEFINED (Primary Dx) Social History Tobacco Use Types [...] Assigned at Female 02/28/2021 1:24 PM NON DESTRUCTIVE TESTING TECHNICIAN Gender Identity Female 02/28/2021 1:23 PM NON DESTRUCTIVE TESTING TECHNICIAN Sexual Orientation Straight 02/28/2021 1: 20 PM NON DESTRUCTIVE TESTING TECHNICIAN documented as of this encounter Plan of Treatment Not on file documented as of this encounter Procedures Procedure Name Priority Date/Time Associated Diagnosis Comments IN MD CERTIFICATION BUTTER WRAPPER PATIENT Routine 12/01/2023 DIAGNOSIS NOT YET DEFINED documented in this encounter Results * MD CERTIFICATION BUTTER WRAPPER PATIENT (12/01/2023) Davonte Juan APRN STOCK PREPARATION SUPERVISOR SPECIAL REPORTS documented in this encounter Visit Diagnoses Diagnosis DIAGNOSIS NOT YET DEFINED- Primary documented in this encounter Additional Health Concerns 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 Assessment Noted Time PHQ-9 Depression Total Score: 9 02/18/20 21 7:30 AM NON DESTRUCTIVE TESTING TECHNICIAN documented as of this encounter Care Teams Carton Counter Feeder Relationship Specialty Start Date End Date Davonte Juan APRN CNP [address] [place] [address] PCP - General Family Medicine 11/15/23 Brayden Du MD [address] [place], [place] [address] [address] Neurology 05/06/22 Maya Alfaro MD [address] [place] [address] Internal Medicine 11/15/23 Kelsy Matthews [address] [place] [address] Geriatric Services Director Of Science 11/15/23 (Fgs), [facility] Senior [facility] Living [address] [place] [address] 11/15/23 Davonte Juan APRN STOCK PREPARATION SUPERVISOR [address] [place] [address] Assigned PCP 11/18/23 documented as of this encounter
--- OUTSIDE RECORDS SUMMARY | 2024-01-16 16:06 | XMS_ITS | Encounter Summary ---
Author Organization [place] Address [address] [place] [address]. [place] [address] Care Team Providers Care Mixing Plant Dumper Name Role Phone Brayden Du MD Unavailable Davonte Juan APRN RELAY TESTER Primary Care Pr ovider Maya Alfaro MD Unavailable [phone] Kelsy Matthews Unavailable (Fgs), [facility] Se womack Apts Asst Living Unavailable Davonte Juan APRN RELAY TESTER Unavailable Reason for Visit * Reason Onset Date Comments Prior Auth - Medication 12/20/2023 hydrOXYz ine HCl (ATARAX) 25 MG tablet Encounter Details Date Type Department Care Team (Late st Contact Info) Description 12/20/2023 Telephone [facility] Geriatrics [address] [place] [phone] Davonte Juan APRN [address] [address] Prior Auth - Medication (hydrOXYzine HCl (ATARAX) 25 MG tablet) Social History Tobacco Use Types Packs/Day Years [...] Sex Assigned at Female 02/28/2021 1:24 PM EARLY CHILDHOOD ASSOCIATE Gender Identity Female 02/28/2021 1:23 PM EARLY CHILDHOOD ASSOCIATE Sexual Orientation Straight 02/28/2021 1: 20 PM EARLY CHILDHOOD ASSOCIATE documented as of this encounter Miscellaneous Notes * Telephone Encounter - Kelsy Matthews - 12/20/2023 11:18 AM CDT Images from the original note were not included. Prior Authorization Retail Medication Request Medication/Dose: hydrOXYzine HCl (ATARAX) 25 MG tablet Diagnosis and ICD code (if different than what is on RX): ICD-10 code L29.9. New/renewal/insurance change PA/secondary ins. 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 Assessment Noted Time PHQ-9 Depression Total Score: 9 02/18/20 21 7:30 AM EARLY CHILDHOOD ASSOCIATE documented as of this encounter Care Teams Mixing Plant Dumper Relationship Specialty Start Date End Date Davonte Juan APRN RELAY TESTER [address] [place] [address] PCP - General Family Medicine 11/15/23 Brayden Du MD [address] [place] [address] [address] Neurology 05/06/22 Maya Alfaro MD [address] [place] [address] Internal Medicine 11/15/23 Kelsy Matthews [address] [place] [address] Geriatric Services Lamination Technician 11/15/23 (Fgs), [facility] Senior Apts Asst Living [address] [place] [phone] 11/15/23 Davonte Juan APRN RELAY TESTER [address] [place] [address] Assigned PCP 11/18/23 documented as of this encounter
--- OUTSIDE RECORDS SUMMARY | 2024-01-16 16:06 | XMS_ITS | Encounter Summary ---
Author Organization [place] Address [facility] [place] [address] Care Team Providers Care Automobile Mechanic Assistant Name Role Phone Rose Pelletier CERTIFIED DIABETES EDUCATOR Unavailable [phone] Alek Jones MD Primary Care Provide r Alek Jones MD Unavailable [phone] Alek Jones MD Unavailable [phone] Alexa Simon PA-C Unavailable + [phone] Alexa Simon PA-C Unavailable [phone] Alek Jones MD Unavailable [phone] Center(Fgs), [facility] Unavailable Alexa Simon PA-C Unavailable + [phone] Alek Jones MD Unavailable [phone] Neelima Shukla DO Primary Care Provider [phone] Brayden Du MD Unavailable MaconAlexa ornelas PA-C Unavailable + [phone] Davonte Juan APRN COPRA SAMPLER Primary Care Pr ovider + Maya Alfaro MD Unavailable [phone] Kelsy Matthews Unavailable + (Fgs), [facility] shanta Apts Asst Living Unavailable Davonte Juan APRN COPRA SAMPLER Unavailable Encounter Details Date Type Department Care Team (Late st Contact Info) Description 11/10/2016 MyC Medical Advice [facility] Physicians [address] [place] [address] [address] [place] [address] Ana Mueller MA Social History Tobacco Use Types Packs/Day Years Used Date Smoking Tobacco: Former Smokeless Tobacco: Never Alcohol Use Standard Drinks/Week Comments No 0 (1 standard drink = 0.6 oz pur e alcohol) Sex and Gender Information Value Date Recorded Sex Assigned at Female 02/28/2021 1:24 PM FROZEN FOOD DEPARTMENT MANAGER Gender Identity Female 02/28/2021 1:23 PM FROZEN FOOD DEPARTMENT MANAGER Sexual Orientation Straight 02/28/2021 1: 20 PM FROZEN FOOD DEPARTMENT MANAGER documented as of this encounter Plan of Treatment Not on file documented as of this encounter Visit Diagnoses Not on filedocumented in this encounter Additional Health Concerns Infection Onset Date Last Indicated Resolved Time 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/07/2020 11/07/2020 11/09/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 Assessment Noted Time PHQ-9 Depression Total Score: 13 017 7:16 AM FROZEN FOOD DEPARTMENT MANAGER documented as of this encounter Care Teams Automobile Mechanic Assistant Relationship Specialty Start Date End Date Alek Jones MD [address] , [address] [address] PCP - General Family Practice 03/18/16 01/11/22 [place] [address] [place] [address] PCP - General Family Medicine 01/12/22 11/14/23 Davonte Juan APRN COPRA SAMPLER [address] [place] [address] PCP - General Family Medicine 11/15/23 Rose Pelletier, CAR Emergency Operator 09/19/14 07/10/20 Alek Jones MD [address], [address] [address] Assigned PCP 04/08/19 05/24/20 Alek Jones MD [address], [address] [address] Assigned PCP 12/25/17 03/31/19 Alexa Simon PA-C [address], [address] [address] Assigned PCP 04/01/19 04/07/19 Alexa Simon PA-C [address], [address] [address] Assigned PCP 05/25/20 06/07/20 Alek Jones MD [address] , [address] [address] Assigned PCP 06/08/20 02/14/21 Center(Fgs), [address] [address] [facility] Facility 10/27/20 11/14/20 Alexa Simon PA-C [address] , [address] [address] Assigned PCP 02/15/21 02/28/21 Alek Jones MD [address] , [address] [address] Assigned PCP 03/01/21 07/18/23 Brayden Du MD 909 [facility] [id number] [place] [address] Neurology 05/06/22 Alexa Simon PA-C [address] , [facility] 100 [place] [address] Assigned PCP 07/19/23 11/17/23 [place] [address] [place] [address] Internal Medicine 11/15/23 Kelsy Matthews [address] [place] [address] Geriatric Services Conveyor Belt Repairer 11/15/23 (Fgs), [facility] Senior Apts Asst Living [address] [place] [phone] 11/15/23 Davonte Juan APRN COPRA SAMPLER [address] [place] [address] Assigned PCP 11/18/23 documented as of this encounter
--- OUTSIDE RECORDS SUMMARY | 2024-01-16 16:06 | XMS_ITS | Encounter Summary ---
Author Organization [place] Address [address] [place] [address] Care Team Providers Care Public Health Technician Name Role Phone Brayden Du MD Unavailable Davonte Juan APRN OVERHEAD CRANE TECHNICIAN Primary Care Pr ovider Maya Alfaro MD Unavailable [phone] Kelsy Matthews Unavailable + (Fgs), [facility] Se [facility] A[facility] Asst Living Unavailable Davonte Juan APRN, CNP Unavailable Encounter Details Date Type Department Care Team (Late st Contact Info) Description 12/13/2023 Telephone [facility] Geriatrics [address] [place] [address] Davonte Juan APRN OVERHEAD CRANE TECHNICIAN [address] [place], [place] [phone] Social History Tobacco Use Types Packs/Day Years [...] Sex Assigned at Female 02/28/2021 1:24 PM CENTRAL OFFICE TROUBLE SHOOTER Gender Identity Female 02/28/2021 1:23 PM CENTRAL OFFICE TROUBLE SHOOTER Sexual Orientation Straight 02/28/2021 1: 20 PM CENTRAL OFFICE TROUBLE SHOOTER documented as of this encounter Plan of Treatment Not on file documented as of this encounter Visit Diagnoses Diagnosis Chronic pain disorder Chronic pain syndrome documented in this encounter Additional Health Concerns 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 Assessment Noted Time PHQ-9 Depression Total Score: 9 02/18/20 21 7:30 AM CENTRAL OFFICE TROUBLE SHOOTER documented as of this encounter Care Teams Public Health Technician Relationship Specialty Start Date End Date Davonte Juan APRN OVERHEAD CRANE TECHNICIAN [address] [place] [address] PCP - General Family Medicine 11/15/23 Brayden Du MD [address] [place] [address] [address] Neurology 05/06/22 Maya Alfaro MD [address] [place] [address] Internal Medicine 11/15/23 Kelsy Matthews [address] [place] [address] Geriatric Services Carpet Inspector Finished 11/15/23 (Fgs), [facility] Senior Apts [facility] Living [address] [place] [phone] 11/15/23 Davonte Juan APRN OVERHEAD CRANE TECHNICIAN [address] [place] [address] Assigned PCP 11/18/23 documented as of this encounter
--- OUTSIDE RECORDS SUMMARY | 2024-01-16 16:06 | XMS_ITS | Encounter Summary ---
Author Organization [place] Address [facility] [facility] [place] [address] Care Team Providers Care Colored Liquid Plastic Applier Name Role Phone Rose Pelletier EVAPORATOR OPERATOR Unavailable [phone] Alek Jones MD Primary Care Provide r Alek Jones MD Unavailable [phone] Alek Jones MD Unavailable [phone] Alexa Simon PA-C Unavailable + [phone] Alexa Simon PA-C Unavailable +[phone] Alek Jones MD Unavailable [phone] Center(Fgs), [facility] Unavailable Alexa Simon PA-C Unavailable + [phone] Alek Jones MD Unavailable [phone] Neelima Shukla DO Primary Care Provider [phone] Brayden uD MD Unavailable MuldoonAlexa ornelas PA-C Unavailable + [phone] Davonte Juan APRN MANAGER LAND Primary Care Pr ovider + Maya Alfaro MD Unavailable [phone] Kelsy Matthews Unavailable + (Fgs), [facility] shanta Apts Asst Living Unavailable Davonte Juan APRN MANAGER LAND Unavailable Encounter Details Date Type Department Care Team (Late st Contact Info) Description 12/19/2017 MyC Medical Advice [facility] [address] [place] [address] Ana Mueller MA Social History Tobacco Use Types Packs/Day Years Used Date Smoking Tobacco: Former Smokeless Tobacco: Never Alcohol Use Standard Drinks/Week Comments No 0 (1 standard drink = 0.6 oz pur e alcohol) Sex and Gender Information Value Date Recorded Sex Assigned at Female 02/28/2021 1:24 PM CREATIVE WRITING TEACHER Gender Identity Female 02/28/2021 1:23 PM CREATIVE WRITING TEACHER Sexual Orientation Straight 02/28/2021 1: 20 PM CREATIVE WRITING TEACHER documented as of this encounter Plan of [...] documented as of this encounter Care Teams Colored Liquid Plastic Applier Relationship Specialty Start Date End Date Alek Jones MD [address], [address] [address] PCP - General Family Practice 03/18/16 01/11/22 [place] [address] [place] [address] PCP - General Family Medicine 01/12/22 11/14/23 Davonte Juan APRN MANAGER LAND [address] [place] [address] PCP - General Family Medicine 11/15/23 Rose Pelletier LSW Rn Document Improvement Specialist 09/19/14 07/10/20 Alek Jones MD [address], [address] [address] Assigned PCP 04/08/19 05/24/20 Alek Jones MD [address], [address] [address] Assigned PCP 12/25/17 03/31/19 Alexa Simon PA-C [address] , [address] [address] Assigned PCP 04/01/19 04/07/19 Alexa Simon PA-C [address] , [address] [address] Assigned PCP 05/25/20 06/07/20 Alek Jones MD [address] , [address] [address] Assigned PCP 06/08/20 02/14/21 [place](Fgs), [address] [address] Longterm Facility 10/27/20 11/14/20 Alexa Simon PA-C [address] , [address] [address] Assigned PCP 02/15/21 02/28/21 Alek Jones MD [address] , [address] [address] Assigned PCP 03/01/21 07/18/23 Brayden Du MD 909 [facility] [id number] [place] [address] Neurology 05/06/22 Alexa Simon PA-C [address] , [facility] 100 [place] [address] Assigned PCP 07/19/23 11/17/23 [place] [address] [place] [address] Internal Medicine 11/15/23 Kelsy Matthews [address] [place] [address] Geriatric Services Cold Saw Operator 11/15/23 (Fgs), [facility] Senior Apts Asst Living [address] [place] [phone] 11/15/23 Davonte Juan APRN MANAGER LAND [address] [place] [address] Assigned PCP 11/18/23 documented as of this encounter
--- OUTSIDE RECORDS SUMMARY | 2024-01-16 16:06 | XMS_ITS | Encounter Summary ---
Author Organization [place] Address [address] [place] [address]. [place] [address] Care Team Providers Care Equipment Washer Name Role Phone Brayden Du MD Unavailable Alxea Simon PAJosé MiguelC Unavailable [phone] Davonte Juan APRN [facility] Primary Care Pr ovider Maya Alfaro MD Unavailable [phone] Kelsy Matthews Unavailable (Fgs), [facility] Apts Asst Living Unavailable Encounter Details Date Type Department Care Team (Latest Contact Info) Description 11/15/2023 Travel Social History Tobacco Use Types Packs/Day [...] Sex Assigned at Female 02/28/2021 1:24 PM HORTICULTURAL FARM MANAGER Gender Identity Female 02/28/2021 1:23 PM HORTICULTURAL FARM MANAGER Sexual Orientation Straight 02/28/2021 1: 20 PM HORTICULTURAL FARM MANAGER documented as of this encounter Plan of Treatment Not on file documented as of this encounter Visit Diagnoses Not on filedocumented in this encounter Additional Health Concerns 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121[address]J [place] [address] Neurology 05/06/22 Alexa Simon PA-C [address] , [facility] [address] [place] [address] Assigned PCP 07/19/23 11/17/23 [place] [address] [place] [address] Internal Medicine 11/15/23 Kelsy Matthews [address] [place] [address] Geriatric Services Quilt Stuffer 11/15/23 (Fgs), [facility] Senior Apts Asst Living [address] [place] [phone] 11/15/23 documented as of this encounter
--- OUTSIDE RECORDS SUMMARY | 2024-01-16 16:06 | XMS_ITS | Encounter Summary ---
Author Organization [place] Address [address] [place] [address]. [place] [address] Care Team Providers Care Lime Spreader Name Role Phone Brayden Du MD Unavailable Davonte Juan APRN TRANSCRIPTION TYPIST Primary Care Pr ovider Maya Alfaro MD Unavailable [phone] Kelsy Matthews Unavailable + (Fgs), [facility] shanta Apts Asst Living Unavailable Davonte Juan APRN TRANSCRIPTION TYPIST Unavailable Encounter Details Date Type Department Care Team (Latest Contact Info) Description 12/23/2023 Travel Social History Tobacco Use Types Packs/Day [...] Sex Assigned at Female 02/28/2021 1:24 PM CAN PILER Gender Identity Female 02/28/2021 1:23 PM CAN PILER Sexual Orientation Straight 02/28/2021 1: 20 PM CAN PILER documented as of this encounter Plan of Treatment Not on file documented as of this encounter Visit Diagnoses Not on filedocumented in this encounter Additional Health Concerns 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 Assessment Noted Time PHQ-9 Depression Total Score: 9 02/18/20 21 7:30 AM CAN PILER documented as of this encounter Care Teams Lime Spreader Relationship Specialty Start Date End Date Davonte Juan APRN TRANSCRIPTION TYPIST [address] [place] [address] PCP - General Family Medicine 11/15/23 Brayden Du MD [address] [place] [address], [place] [address] Neurology 05/06/22 Maya Alfaro MD [address] [place] [address] Internal Medicine 11/15/23 Kelsy Matthews [address] [place] [address] Geriatric Services Solar Energy Technician 11/15/23 (Fgs), [facility] Senior Apts Asst Living [address] [place] [address] 11/15/23 Davonte Juan APRN TRANSCRIPTION TYPIST [address] [place] [address] Assigned PCP 11/18/23 documented as of this encounter
--- OUTSIDE RECORDS SUMMARY | 2024-01-16 16:06 | XMS_ITS | Encounter Summary ---
Author Organization [place] Address [address] [place] [address]. [place] [address] Care Team Providers Care Mobile Therapist Name Role Phone Brayden Du MD Unavailable Davonte Juan APRN BRIDGE MANAGER Primary Care Pr ovider Maya Alfaro MD Unavailable [phone] Kelsy Matthews Unavailable + (Fgs), [facility] shanta Apts Asst Living Unavailable Davonte Juan APRN BRIDGE MANAGER Unavailable Encounter Details Date Type Department Care Team (Latest Contact Info) Description 12/06/2023 Travel Social History Tobacco Use Types Packs/Day [...] Sex Assigned at Female 02/28/2021 1:24 PM TUFTER OPERATOR Gender Identity Female 02/28/2021 1:23 PM TUFTER OPERATOR Sexual Orientation Straight 02/28/2021 1: 20 PM TUFTER OPERATOR documented as of this encounter Plan of Treatment Not on file documented as of this encounter Visit Diagnoses Not on filedocumented in this encounter Additional Health Concerns 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 Assessment Noted Time PHQ-9 Depression Total Score: 9 02/18/20 21 7:30 AM TUFTER OPERATOR documented as of this encounter Care Teams Mobile Therapist Relationship Specialty Start Date End Date Davonte Juan APRN BRIDGE MANAGER [address] [place] [address] PCP - General Family Medicine 11/15/23 Brayden Du MD [address] [place] [address] [address] Neurology 05/06/22 Maya Alfaro MD [address] [place] [address] Internal Medicine 11/15/23 Kelsy Matthews [address] [place] [address] Geriatric Services Direct Marketing Manager 11/15/23 (Fgs), [facility] Senior Apts Asst Living [address] [place] [phone] 11/15/23 Davonte Juan APRN BRIDGE MANAGER [address] [place] [address] Assigned PCP 11/18/23 documented as of this encounter
--- OUTSIDE RECORDS SUMMARY | 2024-01-16 16:06 | XMS_ITS | Encounter Summary ---
Author Organization [place] Address [address] [place] [address]. [place] [address] Care Team Providers Care Machine Operator General Name Role Phone Brayden Du MD Unavailable Alexa Simon PA-C Unavailable [phone]- [phone] Davonte Juan APRN [facility] Primary Care Pr ovider Maya Alfaro MD Unavailable [phone] Kelsy Matthews Unavailable (Fgs), [facility] Apts Asst Living Unavailable Reason for Visit * Reason Onset Date Comments Refill Request 11/17/2023 Encounter Details Date Type Department Care Team (Late st Contact Info) Description 11/17/2023 Refill [facility] Geriatrics [address] [place] [phone] Ritu Denins, RN Refill Request Social History Tobacco Use [...] Sex Assigned at Female 02/28/2021 1:24 PM PAYROLL ACCOUNTING SPECIALIST Gender Identity Female 02/28/2021 1:23 PM PAYROLL ACCOUNTING SPECIALIST Sexual Orientation Straight 02/28/2021 1: 20 PM PAYROLL ACCOUNTING SPECIALIST documented as of this encounter Plan of Treatment Not on file documented as of this encounter Visit Diagnoses Diagnosis Chronic pain disorder- Primary Chronic pain syndrome documented in this encounter Additional Health Concerns 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 Assessment Noted Time PHQ-9 Depression Total Score: 9 02/18/20 21 7:30 AM PAYROLL ACCOUNTING SPECIALIST documented as of this encounter Care Teams Machine Operator General Relationship Specialty Start Date End Date Davonte Juan APRN ROTATIONAL MOULDING OPERATOR [address] [place] [address] PCP - General Family Medicine 11/15/23 Brayden Du MD [address] [place] [address] [address] Neurology 05/06/22 Alexa Simon PA-C [facility] [place] 140[facility] 100 [place] [address] Assigned PCP 07/19/23 11/17/23 Maya Alfaro MD [address] [place] [address] Internal Medicine 11/15/23 Kelsy Matthews 1700 [place] [address] Geriatric Services Ore Miner 11/15/23 (Fgs), [facility] Senior [facility]pts [facility] Living [address] [place] [phone] 11/15/23 documented as of this encounter
--- OUTSIDE RECORDS SUMMARY | 2024-01-16 16:06 | XMS_ITS | Encounter Summary ---
Author Organization [place] Address [address] [place] [address]. [place] [address] Care Team Providers Care Certified Home Health Aide Name Role Phone Brayden Du MD Unavailable Davonte Juan APRN INVESTMENT ANALYST Primary Care Pr ovider Maya Alfaro MD Unavailable [phone] Kelsy Matthews Unavailable + (Fgs), [facility] shanta Apts Asst Living Unavailable Davonte Juan APRN INVESTMENT ANALYST Unavailable Encounter Details Date Type Department Care Team (Latest Contact Info) Description 11/18/2023 Travel Social History Tobacco Use Types Packs/Day [...] Assigned at Female 02/28/2021 1:24 PM RUG CLEANING SUPERVISOR Gender Identity Female 02/28/2021 1:23 PM RUG CLEANING SUPERVISOR Sexual Orientation Straight 02/28/2021 1: 20 PM RUG CLEANING SUPERVISOR documented as of this encounter Plan of Treatment Not on file documented as of this encounter Visit Diagnoses Not on filedocumented in this encounter Additional Health Concerns 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 Assessment Noted Time PHQ-9 Depression Total Score: 9 02/18/20 21 7:30 AM RUG CLEANING SUPERVISOR documented as of this encounter Care Teams Certified Home Health Aide Relationship Specialty Start Date End Date Davonte Juan APRN INVESTMENT ANALYST [address] [place] [address] PCP - General Family Medicine 11/15/23 Brayden Du MD [address] [place] [address] [address] Neurology 05/06/22 Maya Alfaro MD [address] [place] [address] Internal Medicine 11/15/23 Kelsy Matthews [address] [place] [address] Geriatric Services Support Merchandiser 11/15/23 (Fgs), [facility] Senior [facility]pts [facility] Living [address] [place] [address] 11/15/23 Davonte Juan APRN INVESTMENT ANALYST [address] [place] [address] Assigned PCP 11/18/23 documented as of this encounter
--- OUTSIDE RECORDS SUMMARY | 2024-01-16 16:06 | XMS_ITS | Encounter Summary ---
Author Organization [facility] Address [address] [place] [address]. [place] [address] Care Team Providers Care Multiple Pressure Riveter Operator Name Role Phone Brayden Du MD Unavailable Davonte Juan APRN LOCKSTITCHER Primary Care Pr ovider Maya Alfaro MD Unavailable [phone] Kelsy Matthews Unavailable + (Fgs), [facility] Unavailable Davonte Juan APRN LOCKSTITCHER Unavailable Reason for Visit * Reason Onset Date Comments Dysuria 11/23/2023 Encounter Details Date Type Department Care Team (Late st Contact Info) Description 11/23/2023 Telephone [facility] Geriatrics [address] [place] [address] Katie Chicas, RN Dysuria Social History Tobacco Use Types Packs/Day Years [...] Sex Assigned at Female 02/28/2021 1:24 PM TENTERER Gender Identity Female 02/28/2021 1:23 PM TENTERER Sexual Orientation Straight 02/28/2021 1: 20 PM TENTERER documented as of this encounter Miscellaneous Notes * Telephone Encounter - Katie Chicas RN - 11/23/2023 12:50 PM CDT [facility] Geriatrics Triage Nurse Telephone Encounter Provider: Davonte Juan APRN CNP Facility: [facility] Facility Type: [place] Caller: Luz Call Back Number: [phone] Allergies: Allergies Allergen Reactions Darvon-N [Propoxyphene Napsylate] Propoxyphene Other reaction(s): Seizures Reason for call: Pt c/o burning with urination and increased frequency. No confusion or pelvic pain. VS WNL. H/o UTIs. 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 Assessment Noted Time PHQ-9 Depression Total Score: 9 02/18/20 21 7:30 AM TENTERER documented as of this encounter Care Teams Multiple Pressure Riveter Operator Relationship Specialty Start Date End Date Davonte Juan APRN CNP [address] [place] [address] PCP - General Family Medicine 11/15/23 Brayden Du MD [address] [place] [address] [id number] [place] [address] Neurology 05/06/22 Maya Alfaro MD [address] [place] [address] Internal Medicine 11/15/23 Kelsy Matthews [address] [place] [address] Geriatric Services Water Treatment Plant Engineer 11/15/23 (Fgs), [facility] [address] [place] [phone] 11/15/23 Davonte Juan APRN LOCKSTITCHER [address] [place] [address] Assigned PCP 11/18/23 documented as of this encounter
--- OUTSIDE RECORDS SUMMARY | 2024-01-16 16:06 | XMS_ITS | Encounter Summary ---
Author Organization [place] Address [address] [place] [address] Care Team Providers Care Director Of Trauma Name Role Phone Brayden Du MD Unavailable Davonte Juan APRN CASKET INSPECTOR Primary Care Pr ovider Maya Alfaro MD Unavailable [phone] Kelsy Matthews Unavailable + (Fgs), [facility] sh[facility] Living Unavailable Davonte Juan APRN CASKET INSPECTOR Unavailable Reason for Visit * Reason Comments Fatigue Encounter Details Date Type Department Care Team (Late st Contact Info) Description 11/18/2023 8:30 AM CDT Assisted Living Visit [facility] Ger[facility] [address] [place] [phone] Davonte Juan APRN CNP [address] [place] [phone] Left hemiparesis (H) (Primary Dx); Lymphedema; Dermatitis Social History Tobacco Use Types Packs/Day Years [...] Assigned at Female 02/28/2021 1:24 PM DIRECTOR CHEMISTRY Gender Identity Female 02/28/2021 1:23 PM DIRECTOR CHEMISTRY Sexual Orientation Straight 02/28/2021 1: 20 PM DIRECTOR CHEMISTRY documented as of this encounter Last Filed Vital Signs Vital Sign Reading Time Taken Comments Blood Pressure 123/76 11/18/2023 8:05 AM CDT Pulse 82 11/18/2023 8:05 AM CDT Temperature 36.3 ??C (97.3 ??F) 11/18/2023 8:05 AM CD T Respiratory Rate 16 11/18/2023 8:05 AM CDT Oxygen Saturation 95% 11/18/2023 8:05 AM CDT Inhaled Oxygen Concentration - - Weight 81.6 kg (180 lb) 11/18/2023 8:05 AM CDT Height 162.6 cm (5' 4) 11/18/2023 8:05 AM CDT Body Mass Index 30.9 11/18/2023 8:05 AM CDT documented in this encounter Progress Notes * Davonte Juan APRN CASKET INSPECTOR - 11/18/2023 8:30 AM CDT Images from the original note were not included. [facility] [place] [facility] Service where encounter took place: [facility] ([facility]) [[id number]] Chief Complaint Patient presents with Fatigue HPI: Sultana Mueller is a 68 year old (1955), who is being seen today for an episodic care visit. HPI information obtained from: facility chart records, facility staff, patient report, and [facility] [employer] [facility] [employer] chart review. Today's concern is: L hemiparesis, lymphedema, dermatitis. S/p CVA 2000. L hemiparesis. Not amb. Does stand/pivot transfer indep. However requires side rail on bed for transfers, repositioning. Requires electric hospital bed for overall height adjustment for transfers. Requires [facility]. Lift chair to assist with transfers due to L hemiparesis. Also had LE edema which requires elevation of Les. Wears compression stockings. Cont. On lasix. Currently working with therapies. Reports ongoing intertrigo of groin, dermatitis of LEs . Past Medical and Surgical History reviewed in Epic today. MEDICATIONS: Current Outpatient Medications Medication Sig Dispense Refill Coloplast barrier cream CREA Apply 1 Dose topically 2 times daily. hydrocortisone 1 % CREA cream Place rectally 2 times daily. acetaminophen (TYLENOL) 500 MG tablet Take 2 tablets (1,000 mg) by mouth 3 times daily aspirin (ASA) 81 MG chewable tablet Take 81 mg by mouth daily calcium carbonate (TUMS) 500 MG chewable tablet Take 1 tablet (500 mg) by mouth daily citalopram (CELEXA) 40 MG tablet Take 40 mg by mouth daily Cyanocobalamin (VITAMIN B-12 PO) Take 1,000 mcg by mouth daily cyanocobalamin (VITAMIN B-12) 1000 MCG tablet Take 1,000 mcg by mouth daily docusate sodium (COLACE) 100 MG capsule Take 100 mg by mouth 2 times daily as needed for constipation Estradiol (ESTRACE VA) Place 0.01 % vaginally twice a week furosemide (LASIX) 40 MG tablet Take 40 mg by mouth 2 times daily hypromellose (ARTIFICIAL TEARS) 0.5 % SOLN ophthalmic [...] by mouth 2 times daily. 60 capsule 0 rOPINIRole (REQUIP ER) 2 MG 24 hr [...] tablet by mouth daily REVIEW OF SYSTEMS: CONSTITUTIONAL: fatigue, headache, body aches, and sleep disturbance, EYES: neg, ENT: [place], CV: lower extremity edema, RESPIRATORY: dyspnea on exertion, : neg, GI: neg, NEURO: weakness, PSYCH: neg, MUSCULOSKELETAL: muscular weakness, and SKIN: rash Objective: BP 123/76 Pulse 82 Temp 97.3 ??F (36.3 ??C) Resp 16 Ht 1.626 m (5' 4) Wt 81.6 kg (180 lb) LMP (LMP Unknown) SpO2 95% BMI 30.90 kg/m?? Exam: GENERAL APPEARANCE: Alert, in no distress, cooperative ENT: Mouth and posterior oropharynx normal, moist mucous membranes, [place] EYES: EOM, conjunctivae, lids, pupils and irises [...] guarding or rebound M/S: muscle strength 5/5 Ues, gen. LE weakness 4/5L>R, only able to stand for short time. Slow to stand. SKIN: intertrigo L axilla, groin. Some pink area R hollins. Round scaly pink area L hollins NEURO: Cranial nerves 2-12 are normal tested and grossly at patient's baseline, speech fluid, no tremor PSYCH: oriented X 3, affect and mood normal Labs: Most Recent 3 CBC's: Recent Labs [...] 9.2 9.2 GLC 109* 85 138* ASSESSMENT/PLAN: (G81.94) Left hemiparesis (H) (primary encounter diagnosis) Comment: non-amb. Stand/pivot transfers. H/o fall. Plan: Hospital Bed Order for DME - ONLY FOR DME, Lift Chair W Seat Lift Mechanism Order for DME - ONLY FOR DME 2. Cont. PT/OT 3. Monitor for falls (I89.0) Lymphedema Comment: ongoing LE edema Plan: 1. Cont. Compression stockings 2. Elevated Les-order [facility] lift chair/recliner 3. Cont. Lasix 4. Follow wt.s 5. Bmp in next 1-2 mos (L30.9) Dermatitis Comment: L axilla, groin, LEs Plan: 1. Coloplast cream to groin, L axilla bid 2. HC cream bid to pink areas LES Electronically signed by: Davonte Juan APRN CNP Face to Face and Medical Necessity Statement for DME Provider visit Demographic Information on Sultana Mueller: Gender: female : 1955 [id number] [facility] [address] (home) Medical Record: [id number] Social Security Number: [id number] Primary Care Provider: Davonte Juan Insurance: Payor: [facility] / Plan: [facility] MEDICARE ADVANTAGE / Product Type: Medicare / HPI: Sultana Mueller is a 68 year old (1955), who is being seen today for a face to face provider visit at [facility]; medical necessity statement for DME included. This patient requires the following: DME Ordered and Medical Necessity Statement Semi electric hospital bed The patient does require positioning of the body in ways not feasible with an ordinary bed due to amedical condition that is expected to last at least 1 month due to L hemiparesis. The patient does require, for the alleviation of pain, postioning of the body in ways not feasible with an ordinary bed. The patient does not require the head of bed elevated more than 30* most of the time due to CHF, chronic pulmonary disease or aspiration. The patient does not require traction that can only be attached to a hospital bed. The patient does require a bed height different than a fixed height hospital bed to permit tranfersto wheelchair or standing position. The patient does require frequent or immediate changes in body position due to LE edema, L hemiparesis. 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 EXAM Vitals: BP 123/76 Pulse 82 Temp 97.3 ??F (36.3 ??C) Resp 16 Ht 1.626 m (5' 4) Wt 81.6 kg(180 lb) LMP (LMP Unknown) SpO2 95% BMI 30.90 kg/m?? ;BMI= Body mass index is 30.9 kg/m??. ASSESSMENT/PLAN: 1. Left hemiparesis (H) 2. Lymphedema 3. Dermatitis Orders: 1. Facility staff/TC to contact [employer] company to get their order form for provider to fill out ELECTRONICALLY SIGNED BY ED CERTIFIED PROVIDER: Davonte Juan APRN CNP [facility] [address] [place] [address] documented in this encounter Plan of Treatment Not on file documented as of this encounter Visit Diagnoses Diagnosis Left hemiparesis (H)- Primary Hemiplegia, unspecified, affecting unspecified side Lymphedema Other lymphedema Dermatitis Contact dermatitis and other eczema, due to unspecified cause documented in this encounter Additional Health Concerns 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 Assessment Noted Time PHQ-9 Depression Total Score: 9 02/18/20 21 7:30 AM DIRECTOR CHEMISTRY documented as of this encounter Care Teams Director Of Trauma Relationship Specialty Start Date End Date Davonte Juan APRN CASKET INSPECTOR [address] [place] [id number] PCP - General Family Medicine 11/15/23 Brayden Du MD [address] [place] [address] [id number] [place] [address] Neurology 05/06/22 Maya Alfaro MD [address] [place] [address] Internal Medicine 11/15/23 Kelsy Matthews [address] [place] [id number] Geriatric Services It Telecom Technician 11/15/23 (Fgs), [facility] [address] [place] [phone] 11/15/23 Davonte Juan APRN CASKET INSPECTOR [address] [place] [address] Assigned PCP 11/18/23 documented as of this encounter
--- OUTSIDE RECORDS SUMMARY | 2024-01-16 16:06 | XMS_ITS | Encounter Summary ---
Author Organization [place] Address [address] [place] [address] Care Team Providers Care Arborist Climber Name Role Phone Brayden Du MD Unavailable Alexa Simon PA-C Unavailable + [phone] Davonte Juan APRN PHARMACIST AIDE Primary Care Pr ovider Maya Alfaro MD Unavailable [phone] Kelsy Matthews Unavailable (Fgs), [facility] Apts Asst Living Unavailable Reason for Referral * Consultation (Routine: Next available opening) - Pending Review Specialty Diagnoses / Procedures Referred By Ela galeana Referred To Contact Endocrinology, Diabetes, and Metabolism Diagnoses Idiopathic postprandial hypoglycemia Davonte Juan APRN PHARMACIST AIDE [address] [place] [address] Referral ID Status Reason Start Date Expiration Date V isits Requested Visits Authorized [id number] Pending Review 11/15/2023 11/14/2024 1 1 Question Answer Reason for Referral: Other My Clinical Question Is: hypoglycemia Scheduling Instructions: [facility] will call you to coordinate your care as prescribed by the provider. If you don? t hear from a call center support representative within 2 business days, please call [phone]. Additional Information: has BG levels in 50-60s at times, typically following meals. feels shaky, weak with episodes Comments Please be aware that coverage of these services is subject to the terms and limitations of your health insurance plan. Call member services at your health plan with any benefit or coverage questions. [facility] will call you to coordinate your care as prescribed by the provider. If you don? t hear from a call center support representative within 2 business days, please call [phone]. Reason for Visit * Reason Comments Establish Care Encounter Details Date Type Department Care Team (Late st Contact Info) Description 11/15/2023 8:00 AM CDT Assisted Living Visit [facility] [address] [place] [phone] Davonte Juan APRN PHARMACIST AIDE [address] [place] [address] Hypertension, unspecified type (Primary Dx); Lymphedema; Left hemiparesis (H); Chemical dependency (H); Major depressive disorder, recurrent episode, moderate (H); Seizure disorder (H); Idiopathic postprandial hypoglycemia; ACP (advance care planning) Social History Tobacco Use Types Packs/Day Years [...] Sex Assigned at Female 02/28/2021 1:24 PM STRINGED INSTRUMENT ASSEMBLER Gender Identity Female 02/28/2021 1:23 PM STRINGED INSTRUMENT ASSEMBLER Sexual Orientation Straight 02/28/2021 1: 20 PM STRINGED INSTRUMENT ASSEMBLER documented as of this encounter Last Filed Vital Signs Vital Sign Reading Time Taken Comments Blood Pressure 108/76 11/15/2023 8:43 AM CDT Pulse 90 11/15/2023 8:43 AM CDT Temperature - - Respiratory Rate 16 11/15/2023 8:43 AM CDT Oxygen Saturation 94% 11/15/2023 8:43 AM CDT Inhaled Oxygen Concentration - - Weight 81.6 kg (180 lb) 11/15/2023 8:43 AM CDT Height 162.6 cm (5' 4) 11/15/2023 8:43 AM CDT Body Mass Index 30.9 11/15/2023 8:43 AM CDT documented in this encounter Progress Notes * Davonte Juan APRN CNP - 11/15/2023 8:00 AM CDT [facility] PRIMARY CARE PROVIDER AND CLINIC: Davonte Juan APRN CNP, [address] [facility] [address] Chief Complaint Patient presents with [facility] [place] Place of Service where encounter took place: [facility] ([facility] [[id number]] Sultana Mueller is a 68 year old (1955), admitted to the above facility from TCU.. Admittedto this facility for rehab, medical management, and nursing care. HPI: HPI information obtained from: facility chart records, facility staff, patient report, and [facility] chart review. Brief Summary of Hospital Course: HTN: cont. On metoprolol. Has had tachycardia. Today HR stable. BP sl lower. Lymphedema: ongoing LE edema. Wears comp. Stockings. Lasix dose increase. Fatty liver. UTI 10/18 with VRE. Tx with macrodantin. L hemiparesis. CVA following AVM repair 2000. Sl weakness of L upeer and lower ext., decreased coordination of L extremities. Able to stand/pivot transfer indep. Uses electric w.c. Chem. Dep. Has h/o etoh use, falls, ED visits. Per chart, past dependence on opioids, benzos. Reports no recent etoh use. Taking lyrica for polyneuropathy Depression. Cont. On celexa, remeron. Has insomnia. Taking requip, belsomra. Has seen psychiatry inpast. No recent visits. No upcoming appts. Seizure disorder, seizure with AVM repair, also in -due to etoh withdrawal. Cont. On dilantin. No recent seizures. Not followed by Neuro. Idiopathic hypoglycemia. Per TCU notes 5-6 episodes of BG levels in 50s-60s after eating. Has shakiness, weakness. S/s subside with po intake. Has h/o poor po intake. Updates on Status Since long-term Admission: mood gen. Stable. Reports headache this am-did not sleep well last hs-first night at [facility]. 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 PAST SURGICAL HISTORY: has a past surgical history that includes carpal tunnel release rt/lt (Right, 2009); Open reduction internal fixation rodding intramedullary humerus (Left, 01/16/2014); IR Carotid Angiogram (02/03/2004); IR Miscellaneous Procedure (02/03/2004); Open reduction internal fixation ankle (Left, 10/24/2020); CERVICAL DISC FUSION NOS; Tonsillectomy; and Surgery for AV malformationand brain (2000). FAMILY HISTORY: family history includes Diabetes in her mother; Hypertension in her mother. SOCIAL HISTORY: reports that she has been smoking. She has never used smokeless tobacco. She reports that she does not currently use alcohol. She reports that she does not use drugs. Post Discharge Medication Reconciliation Status: discharge medications reconciled and changed, per note/orders Current Outpatient Medications Medication Sig Dispense Refill aspirin (ASA) 81 MG chewable tablet Take 81 mg by mouth daily citalopram (CELEXA) 40 MG tablet Take 40 mg by mouth daily cyanocobalamin (VITAMIN B-12) 1000 [...] Take 45 mg by mouth at bedtime omeprazole (PRILOSEC) [address] capsule Take 20 mg by mouth daily phenytoin (DILANTIN) 100 MG ER capsule Take 100 mg by mouth 2 times daily 200 mg at hs Potassium Chloride 40 MEQ/15ML (20%) SOLN Take 20 mEq by mouth daily pregabalin (LYRICA) 300 MG capsule Take 1 mg by mouth 2 times daily rOPINIRole (REQUIP ER) 2 MG 24 hr tablet Take 2.5 mg by mouth daily Suvorexant (BELSOMRA) 20 MG tablet Take 10 mg by mouth at bedtime vitamin D3 (CHOLECALCIFEROL) 50 mcg (2000 units) tablet Take 1 tablet by mouth daily acetaminophen (TYLENOL) 500 MG tablet Take 2 tablets (1,000 mg) by mouth 3 times daily calcium carbonate (TUMS) 500 MG chewable tablet Take 1 tablet (500 mg) by mouth daily Cyanocobalamin (VITAMIN B-12 PO) Take 1,000 mcg by mouth daily nicotine (COMMIT) [address] 1 lozenge (2 mg) inside cheek every hour as needed for smokingcessation polyethylene glycol (MIRALAX) 17 GM/Dose powder Take 17 g by mouth daily (Patient taking differently: Take 17 g by mouth daily as needed ) 510 g rotigotine (NEUPRO) 2 MG/24HR [address] 1 patch onto the skin daily SUMAtriptan (IMITREX) 100 MG tablet TAKE 1 TABLET BY MOUTH AT ONSET OF HEADACHE Dr Juan David Garcia DO, neurologist 9 tablet 0 ROS: CONSTITUTIONAL: fatigue, headache, dizziness, and sleep disturbance, EYES: dry eyes, ENT: [place], CV: lower extremity edema, RESPIRATORY: neg, : neg, GI: neg, NEURO: headaches, PSYCH: neg, and MUSCULOSKELETAL: muscular weakness Vitals: BP 108/76 Pulse 90 Resp 16 Ht 1.626 m (5' 4) Wt 81.6 kg (180 lb) LMP (LMP Unknown) SpO2 94% BMI 30.90 kg/m?? Exam: GENERAL APPEARANCE: Alert, in no distress, cooperative ENT: Mouth and posterior oropharynx normal, moist mucous membranes, [place], adequate dentition EYES: EOM, conjunctivae, lids, pupils and irises normal, PERRL, no drainage NECK: No adenopathy,masses or thyromegaly, FROM, no carotid bruit RESP: respiratory effort and palpation of chest normal, lungs clear to auscultation , no respiratory distress, diminished breath sounds bibasilar CV: Palpation and auscultation of heart done , regular rate and rhythm, no murmur, rub, or gallop, peripheral edema 2+ in LEs, distant heart sounds ABDOMEN: normal bowel sounds, soft, nontender, no hepatosplenomegaly or other masses, no guarding or rebound, no bruits M/S: muscle strength 5/5 all 4 ext. Some gen. Weakness, L>R., good hand grasp strength bilat. Decreased coordination of L hand SKIN: faint bruise L cheek, L chin NEURO: Cranial nerves 2-12 are normal tested and grossly at patient's baseline, speech fluid, no tremor PSYCH: oriented X 3, affect and mood normal, no apparent anxiety Lab/Diagnostic data: Recent labs in [facility] reviewed by me today. ASSESSMENT/PLAN: (I10) Hypertension, unspecified type (primary encounter diagnosis) Comment: BP sl lower today Plan: 1. Cont. Metoprolol 2. Follow Bps, Hrs 3. Cont. Hold parameter for metoprolol for SBP < 90 (I89.0) Lymphedema Comment: ongoing LE edema. Resp. Status stable Plan: 1. Cont. Lasix 2. Cont. Compression stockings 3. PT to start, resume Lymph tx 4. Follow wt.s (G81.94) Left hemiparesis (H) Comment: s/p CVA Plan: 1. PT as above 2. Assess for grab bar on hipolito for repositioning 3. Cont. Electric w.c. 4. Monitor for falls-recent fall at TCU with facial bruising (F19.20) Chemical dependency (H) Comment: reports no recent etoh use. Has h/o falls. Plan: 1. Will consider follow-up with Psych 2. Monitor for further falls (F33.1) Major depressive disorder, recurrent episode, moderate (H) Comment: reports some adjustment issues with unpacking. Feels overwhelmed at times, o/w mood gen. Stable. Plan: 1. Cont. Remeron, celexa 2 cont lyrica for neuropathy 3. Cont. Requip, belsomra for insomnia 4. Will consider psychotherapy (G40.909) Seizure disorder (H) Comment: no recent reported seizures Plan: 1. Cont. Dilantin 2. Check dilantin level in next couple mos 3. Follow Neuros (E16.1) Idiopathic postprandial hypoglycemia Comment: some hypoglycemic episodes last month on TCU. H/o variable po intake Plan: Adult Endocrinology Shelf Filler Referral 2. Every day BG levels alt times (Z71.89) ACP (advance care planning) Comment: full code Plan: 1. POLST in chart Electronically signed by: Davonte Juan APRN PHARMACIST AIDE documented in this encounter Plan of Treatment Scheduled Referrals Name Type Priority Associated Diagnoses Orde r Schedule Adult Endocrinology Shelf Filler Referral Referral Routine: Next available opening Idiopathic postprandial hypoglycemia Expected: 11/15/2023 (Approximate), Expires: 11/14/2024 documented as of this encounter Visit Diagnoses Diagnosis Hypertension, unspecified type- Primary Lymphedema Other lymphedema Left hemiparesis (H) Hemiplegia, unspecified, affecting unspecified side Chemical dependency (H) Unspecified drug dependence, unspecified Major depressive disorder, recurrent episode, moderate (H) Major depressive disorder, recurrent episode, moderate Seizure disorder (H) Unspecified epilepsy without mention of intractable epilepsy Idiopathic postprandial hypoglycemia Hypoglycemia, unspecified ACP (advance care planning) Other specified counseling documented in this encounter Additional Health Concerns 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 [id number] [place] [address] Neurology 05/06/22 Alexa Simon PA-C [address], [address] [place] [address] Assigned PCP 07/19/23 11/17/23 Maya Alfaro MD [address] [place] [address] Internal Medicine 11/15/23 Kelsy Matthews [address] [place] [address] Geriatric Services Wood Preparation Supervisor 11/15/23 (Fgs), [facility] Senior Apts Asst Living [address] [place] [phone] 11/15/23 documented as of this encounter
--- OUTSIDE RECORDS SUMMARY | 2024-01-16 16:06 | XMS_ITS | Encounter Summary ---
Author Organization [place] Address [address] [place] [address] Care Team Providers Care Care Team Coordinator Scheduler Name Role Phone Brayden Du MD Unavailable Davonte Juan APRN SENIOR COURTROOM CLERK Primary Care Pr ovider Maya Alfaro MD Unavailable [phone] Kelsy Matthews Unavailable + (Fgs), [facility] shanta Apts Asst Living Unavailable Davonte Juan APRN, CNP Unavailable Reason for Referral * Mental Health Outpatient (Routine: Next available opening) - Pending Review Specialty Diagnoses / Procedures Referred By Ela galeana Referred To Contact Diagnoses Major depressive disorder, recurrent episode, moderate (H) Davonte Juan APRN SENIOR COURTROOM CLERK [address] [place] [address] Referral ID Status Reason Start Date Expiration Date V isits Requested Visits Authorized [id number] Pending Review 12/23/2023 12/22/2024 1 1 Question Answer Services: Psychotherapy/Counseling (non-medication) Reason for Referral: Individual Psychotherapy/Counseling Scheduling Instructions: [facility] will call you to coordinate your care as prescribed by your provider. If you don't hear from a new accounts representative within 2 business days, please call . Only select yes if the patient has already been scheduled and requires a referral for insurance. If yes is selected, the referral will NOT route to scheduling for outreach. No Comments Please be aware that coverage of these services is subject to the terms and limitations of your health insurance plan. Call member services at your health plan with any benefit or coverage questions. [facility] will call you to coordinate your care as prescribed by your provider. If you don't hear from a new accounts representative within 2 business days, please call . Reason for Visit * Reason Comments Altered Mental Status Encounter Details Date Type Department Care Team (Late st Contact Info) Description 12/23/2023 7:00 AM CDT Assisted Living Visit [facility] Geriatrics [address] [place] [phone] Davonte Juan, LONG SENIOR COURTROOM CLERK [facility] [place] [address] Decreased responsiveness (Primary Dx); Major depressive disorder, recurrent episode, moderate (H); Lymphedema Social History Tobacco Use Types Packs/Day Years [...] Sex Assigned at Female 02/28/2021 1:24 PM POLICE JUDGE Gender Identity Female 02/28/2021 1:23 PM POLICE JUDGE Sexual Orientation Straight 02/28/2021 1: 20 PM POLICE JUDGE documented as of this encounter Last Filed Vital Signs Vital Sign Reading Time Taken Comments Blood Pressure 124/65 12/23/2023 8:04 AM CDT Pulse 86 12/23/2023 8:04 AM CDT Temperature 36.3 ??C (97.4 ??F) 12/23/2023 8:04 AM CD T Respiratory Rate 18 12/23/2023 8:04 AM CDT Oxygen Saturation 97% 12/23/2023 8:04 AM CDT Inhaled Oxygen Concentration - - Weight 81.6 kg (180 lb) 12/23/2023 8:04 AM CDT Height 162.6 cm (5' 4) 12/23/2023 8:04 AM CDT Body Mass Index 30.9 12/23/2023 8:04 AM CDT documented in this encounter Progress Notes * Davonte Juan APRN SENIOR COURTROOM CLERK - 12/23/2023 7:00 AM CDT Images from the original note were not included. [facility] of Service where encounter took place: [facility] ([facility]) [[id number]] Chief Complaint Patient presents with Altered Mental Status HPI: Sultana Mueller is a 68 year old (1955), who is being seen today for an episodic care visit. HPI information obtained from: facility chart records, facility staff, patient report, and [facility] chart review. Today's concern is: Decreased responsiveness, depression, lymphedema. Has h/o CVI, seizures. Cont on asa. H/o etoh abuse. Last hs noted to have decreased responsiveness, alt. Mental status. EMS called, arrived. Refused to go to ED. Staff felt etoh use may be involved. Resident denies this. Reports feeling fine today. Neuros baseline. Has depression, cont. On celexa, remeron. Has h/o insomnia. Cont. On Neupro, belsomr a, requip. For lymphedema cont. With therapies. Taking lasix. Ongoing LE edema. Awaiting compression stockings. Has limited bed mobility. Refuses hosp. Bed with halo side rail. Current bed not able to accommodate side rail. Does agree to have ceiling to floor pole installed bedside to assist with mobility. Has falls. Fell with therapy. Has some bruising to L 4th toe. Past Medical and Surgical History reviewed in Epic today. MEDICATIONS: Current Outpatient Medications Medication Sig Dispense Refill acetaminophen (TYLENOL) 500 MG tablet Take 2 [...] CREA cream Place rectally 2 times daily. hydrOXYzine HCl (ATARAX) 25 MG tablet Take 25 mg by mouth 2 times daily. hypromellose (ARTIFICIAL TEARS) 0.5 [...] Appetite is normal. No pain except occ Les, gen. pruritis. Objective: BP 124/65 Pulse 86 Temp 97.4 ??F (36.3 ??C) Resp 18 Ht 1.626 m (5' 4) Wt 81.6 kg (180 lb) LMP (LMP Unknown) SpO2 97% BMI 30.90 kg/m?? Exam: GENERAL APPEARANCE: Alert, in no distress, cooperative ENT: Mouth and posterior oropharynx normal, moist mucous membranes, normal hearing acuity EYES: EOM, conjunctivae, lids, pupils and irises normal, PERRL NECK: FROM RESP: respiratory effort and palpation of chest normal, lungs clear to auscultation , no respiratory distress CV: Palpation and auscultation of heart done , regular rate and rhythm, no murmur, rub, or gallop, peripheral edema 2+ in Les, L>R ABDOMEN: normal bowel sounds, soft, nontender, no hepatosplenomegaly or other masses, no guarding or rebound M/S: muscle strength 5/5 RUE, hemiplegia LUE, LLE, gen. Weakness RLE SKIN: bruising to L 4th toe. Small scabs on extremities NEURO: Cranial nerves 2-12 are normal tested and grossly at patient's baseline, L hemiplegia, speech sl slurred PSYCH: oriented X 3, affect and mood [...] 9.2 9.2 GLC 109* 85 138* ASSESSMENT/PLAN: (R41.89) Decreased responsiveness (primary encounter diagnosis) Comment: unclear etiology, h/o etoh use-denies. Neuros baseline today. Resp. Status stable Plan: 1. Cont. Asa 2. Monitor for Neuro changes, changes in mental status, s/s etoh use 3. Again educated about etoh use and current meds (F33.1) Major depressive disorder, recurrent episode, moderate (H) Comment: reports ongoing s/s. Plan: Adult Mental Health Conche Operator Referral 1. Cont. Celexa, remeron 2. Monitor for insomnia (I89.0) Lymphedema Comment: ongoing LE edema. Gen. pruritis Plan: 1. Cont. Lasix 2. Start compression stockings to Les when available 3. Bmp in next 2-3 mos 4. Start prn atarax for pruritus, monitor for drainage, weeping of LEs Electronically signed by: Davonte Juan APRN CNP Face to Face and Medical Necessity Statement for DME Provider visit Demographic Information on Sultana Mueller: Gender: female : 1955 [id number] [facility] [address] (home) Medical Record: [id number] Social Security Number: [id number] Primary Care Provider: Davonte Juan Insurance: Payor: [facility] / Plan: [employer] MEDICARE ADVANTAGE / Product Type: Medicare / HPI: Sultana Mueller is a 68 year old (1955), who is being seen today for a face to face provider visit at [facility]; medical necessity statement for DME included. This patient requires the following: DME Ordered and Medical Necessity Statement Floor to ceiling pole . Has decreased bed mobility due to L hemiparesis. Requires bedside pole to assist with bed mobility. 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 EXAM Vitals: BP 124/65 Pulse 86 Temp 97.4 ??F (36.3 ??C) Resp 18 Ht 1.626 m (5' 4) Wt 81.6 kg(180 lb) LMP (LMP Unknown) SpO2 97% BMI 30.90 kg/m?? ;BMI= Body mass index is 30.9 kg/m??. ASSESSMENT/PLAN: 1. Decreased responsiveness 2. Major depressive disorder, recurrent episode, moderate (H) 3. Lymphedema Orders: 1. Facility staff/TC to contact [facility] to get their order form for provider to fill out ELECTRONICALLY SIGNED BY ED CERTIFIED PROVIDER: Davonte Juan APRN CNP [facility] [address] [place] [address] documented in this encounter Plan of Treatment Scheduled Referrals Name Type Priority Associated Diagnoses Orde r Schedule Adult Mental Health Conche Operator Referral Referral Routine: Next available opening Major depressive disorder, recurrent episode, moderate (H) Expected: 12/23/2023 (Approximate), Expires: 12/22/2024 documented as of this encounter Visit Diagnoses Diagnosis Decreased responsiveness- Primary Other alteration of consciousness Major depressive disorder, recurrent episode, moderate (H) Major depressive disorder, recurrent episode, moderate Lymphedema Other lymphedema documented in this encounter Additional Health Concerns 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 Assessment Noted Time PHQ-9 Depression Total Score: 9 02/18/20 21 7:30 AM POLICE JUDGE documented as of this encounter Care Teams Care Team Coordinator Scheduler Relationship Specialty Start Date End Date Davonte Juan APRN CNP [address] [place] [id number] PCP - General Family Medicine 11/15/23 Brayden Du MD [address] [facility] [id number] [place] [address] Neurology 05/06/22 Maya Alfaro MD [address] [place] [phone] Internal Medicine 11/15/23 Kelsy Matthews [address] [place] [address] Geriatric Services Barnworker Groom 11/15/23 (Fgs), [facility] Senior [facility] Living [address] [place] [phone] 11/15/23 Davonte Juan APRN SENIOR COURTROOM CLERK [address] [place] [address] Assigned PCP 11/18/23 documented as of this encounter
--- OUTSIDE RECORDS SUMMARY | 2024-01-16 16:07 | XMS_ITS | Encounter Summary ---
Author Organization [facility] Address [address] [place] [address]. [place] [address] Care Team Providers Care Gear Lapper Name Role Phone Jeramie Sterling MD Primary Care Provider Elodia Rose Oliveira SPLUNK DASHBOARD DEVELOPER Unavailable [phone] Estela Dacosta PA-C Primary Care Pro vider Kelley Love MD Primary Care Provider [phone] Alek Jones MD Primary Care Provide r Alek Jones MD Unavailable [phone] Alek Jones MD Unavailable +[phone] Alexa Simon PA-C Unavailable + [phone] Alexa Simon PA-C Unavailable + [phone] Alek Jones MD Unavailable +[phone] [place](Fgs)[facility] Unavailable Alexa Simon PA-C Unavailable + [phone] Alek Jones MD Unavailable +[phone] Neelima Shukla DO Primary Care Provider [phone] Brayden Du MD Unavailable Alexa Simon PA-C Unavailable + [phone] Davonte Juan APRN [facility] Primary Care Pr ovider Maya Alfaro MD Unavailable [phone] Kelsy Matthews Unavailable (Fgs), [facility] Unavailable Davonte Juan APRN POST ADOPTION COORDINATOR Unavailable Reason for Visit * Reason Onset Date Comments MH/CD Inpatient 07/30/2014 Other Encounter Details Date Type Department Care Team ([facility] st Contact Info) Description 07/30/2014 Telephone [facility] Behavioral Health Intake [address] [place] [address] Generic, Behavioral Intake, MH/CD Inpatient; Social History Tobacco Use Types Packs/Day Years Used Date Smoking Tobacco: Former Smokeless Tobacco: Never Alcohol Use Standard Drinks/Week Comments No 0 (1 standard drink = 0.6 oz pur e alcohol) Sex and Gender Information Value Date Recorded Sex Assigned at Female 02/28/2021 1:24 PM BOOK AUTHOR Gender Identity Female 02/28/2021 1:23 PM BOOK AUTHOR Sexual Orientation Straight 02/28/2021 1: 20 PM BOOK AUTHOR documented as of this encounter Miscellaneous Notes * Telephone Encounter - Nino Flores, RN - 07/30/2014 3:09 PM CDT S: Patient presents to [facility] brought in by friends with a [...] and voluntary. R: Admit to station 3a, straight CD, [facility] accepts. 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 documented as of this encounter Care Teams Gear Lapper Relationship Specialty Start Date End Date Jeramie Sterling MD PCP - General Family Practice 07/24/14 11/09/15 Estela Dacosta PA-C PCP - General Family Practice 11/10/15 12/17/15 Kelley Love MD [address], [address] [address] PCP - General Family Practice 12/18/15 03/17/16 Alek Jones MD [address] , [address] [address] PCP - General Family Practice 03/18/16 01/11/22 [place] [address] [place] [address] PCP - General Family Medicine 01/12/22 11/14/23 Davonte Juan APRN POST ADOPTION COORDINATOR [address] [place] [address] PCP - General Family Medicine 11/15/23 Rose Pelletier LSW Glass Cylinder Flanger 09/19/14 07/10/20 Alek Jones MD [address], [address] [address] Assigned PCP 04/08/19 05/24/20 Alek Jones MD [address] , [address] [address] Assigned PCP 12/25/17 03/31/19 Alexa Simon PA-C [address] , [address] [address] Assigned PCP 04/01/19 04/07/19 Alexa Simon PA-C [address], [address] [address] Assigned PCP 05/25/20 06/07/20 Alek Jones MD [address], [address] [address] Assigned PCP 06/08/20 02/14/21 [place](s), [address] [address] Detention Facility 10/27/20 11/14/20 Alexa Simon PA-C [address] , [address] [address] Assigned PCP 02/15/21 02/28/21 Alek Jones MD [address] , [address] [address] Assigned PCP 03/01/21 07/18/23 Brayden Du MD 909 [facility] [id number] [place] [address] Neurology 05/06/22 Alexa Simon PA-C [address], [address] [place] [address] Assigned PCP 07/19/23 11/17/23 [place] [address] [place] [address] Internal Medicine 11/15/23 Kelsy Matthews [address] [place] [address] Geriatric Services Web Operations Lead 11/15/23 (Fgs), [facility] Senior [facility]pts [facility] [address] [place] [phone] 11/15/23 Davonte Juan APRN POST ADOPTION COORDINATOR [address] [place] [address] Assigned PCP 11/18/23 documented as of this encounter
--- OUTSIDE RECORDS SUMMARY | 2024-01-16 16:07 | XMS_ITS | Encounter Summary ---
Author Organization [place] Address [address] [place] [address]. [place] [address] Care Team Providers Care Embroidery Worker Name Role Phone Jeramie Sterling MD Primary Care Provider Elodia Rose Oliveira COMMUNITY SERVICE SPECIALIST Unavailable [phone] Estela Dacosta PA-C Primary Care Pro vider Kelley Love MD Primary Care Provider [phone] Alek Jones MD Primary Care Provide r Alek Jones MD Unavailable +[phone] Alek Jones MD Unavailable +[phone] Alexa Simon PA-C Unavailable + [phone] Alexa Simon PA-C Unavailable + [phone] Alek Jones MD Unavailable +[phone] [place](Fgs)[facility] Unavailable Alexa Simon PA-C Unavailable + [phone] Alek Jones MD Unavailable +[phone] Neelima Shukla DO Primary Care Provider [phone] Brayden Du MD Unavailable Alexa Simon PA-C Unavailable + [phone] Davonte Juan APRN [facility] Primary Care Pr ovider Maya Alfaro MD Unavailable [phone] Kelsy Matthews Unavailable (Fgs), Berta Velasquez Living Unavailable Davonte Juan APRN RN CLINICAL RESOURCE Unavailable Reason for Visit * Reason Comments Other Encounter Details Date Type Department Care Team ([facility] Contact Info) Description 08/02/[address] [facility] Behavioral Health Intake [address] [place] [address] Generic, Behavioral Intake, Social History Tobacco Use Types Packs/Day Years Used Date Smoking Tobacco: Former Smokeless Tobacco: Never Alcohol Use Standard Drinks/Week Comments No 0 (1 standard drink = 0.6 oz pur e alcohol) Sex and Gender Information Value Date Recorded Sex Assigned at Female 02/28/2021 1:24 PM ROUTE CONTRACTOR Gender Identity Female 02/28/2021 1:23 PM ROUTE CONTRACTOR Sexual Orientation Straight 02/28/2021 1: 20 PM ROUTE CONTRACTOR documented as of this encounter Miscellaneous Notes * Telephone Encounter - Chayo Fraire - 08/02/2014 1:57 PM CDT ----- Message from Mihaela Gillette sent at 08/02/2014 12:47 PM CDT ----- Regarding: Seniors DOP referral I will fax [facility] Courtesy Rule 25 and ask for them to contact [facility] and [place] site with authorization. * Telephone Encounter - [...] documented as of this encounter Care Teams Embroidery Worker Relationship Specialty Start Date End Date Jeramie Sterling MD PCP - General Family Practice 07/24/14 11/09/15 Estela Dacosta PA-C PCP - General Family Practice 11/10/15 12/17/15 Kelley Love MD [address] , [facility] [address] [place] [address] PCP - General Family Practice 12/18/15 03/17/16 Alek Jones MD [address] , [address] [address] PCP - General Family Practice 03/18/16 01/11/22 [place] [address] [place] [address] PCP - General Family Medicine 01/12/22 11/14/23 Davonte Juan APRN CNP [address] [place] [address] PCP - General Family Medicine 11/15/23 Rose Pelletier, [facility] Hand Mounter 09/19/14 07/10/20 Alek Jones MD [address], [address] [address] Assigned PCP 04/08/19 05/24/20 Alek Jones MD [address], [address] [address] Assigned PCP 12/25/17 03/31/19 Alexa Simon PA-C [address], [address] [address] Assigned PCP 04/01/19 04/07/19 Alexa Simon PA-C [address], [address] [address] Assigned PCP 05/25/20 06/07/20 Alek Jones MD [address], [address] [address] Assigned PCP 06/08/20 02/14/21 Center(Fgs), [address] [address] Group Home Facility 10/27/20 11/14/20 Alexa Simon PA-C [address], [address] [address] Assigned PCP 02/15/21 02/28/21 Alek Jones MD [address] , [id number] [place] [address] Assigned PCP 03/01/21 07/18/23 Brayden Du MD 909 [facility] [id number] [place] [address] Neurology 05/06/22 Alexa Simon PA-C [address] , [facility] [address] [place] [address] Assigned PCP 07/19/23 11/17/23 Maya Alfaro MD [address] [place] [address] Internal Medicine 11/15/23 Kelsy Matthews [address] [place] [address] Geriatric Services Assembly Line Upholsterer 11/15/23 (Fgs), [facility] Senior [facility]pts [facility] Living [address] [place] [phone] 11/15/23 Davonte Juan APRN RN CLINICAL RESOURCE [address] [place] [address] Assigned PCP 11/18/23 documented as of this encounter
--- OUTSIDE RECORDS SUMMARY | 2024-01-16 16:07 | XMS_ITS | Encounter Summary ---
Author Organization [place] Address [address] [place] [address]. [place] [address] Care Team Providers Care Finisher Special Stocks Name Role Phone Jeramie Sterling MD Primary Care Provider Elodia Rose Oliveira DIET ATTENDANT Unavailable [phone] Estela Dacosta PA-C Primary Care Pro vider Kelley Love MD Primary Care Provider [phone] Alek Jones MD Primary Care Provide r Alek Jones MD Unavailable [phone] Alek Jones MD Unavailable [phone] Alexa Simon PA-C Unavailable + [phone] Alexa Simon PA-C Unavailable + [phone] Alek Jones MD Unavailable +[phone] [place](Fgs)[facility] Unavailable Alexa Simon PA-C Unavailable + [phone] Alek Jones MD Unavailable +[phone] Neelima Shukla DO Primary Care Provider [phone] Brayden Du MD Unavailable Alexa Simon PA-C Unavailable + [phone] Davonte Juan APRN [facility] Primary Care Pr ovider Maya Alfaro MD Unavailable [phone] MatthewsKelsy huerta Unavailable (Fgs), Berta Velasquez Living Unavailable Davonte Juan APRN LABORER BRUSH CLEARING Unavailable Reason for Visit * Reason Comments Medication Refill Encounter Details Date Type Department Care Team (Late st Contact Info) Description 02/17/2015 Refill [facility] Physicians [address] [place] [address] [place] [phone] Jeramie Setrling MD XXXX RESIGNED/INACTIVE XXXX Medication Refill Social History Tobacco Use Types Packs/Day Years Used Date Smoking Tobacco: Former Smokeless Tobacco: Never Alcohol Use Standard Drinks/Week Comments No 0 (1 standard drink = 0.6 oz pur e alcohol) Sex and Gender Information Value Date Recorded Sex Assigned at Female 02/28/2021 1:24 PM VP AD PRODUCTS AND PLANNING Gender Identity Female 02/28/2021 1:23 PM VP [employer]ANNING Sexual Orientation Straight 02/28/2021 1: 20 PM VP [employer]ODU[employer] PLANNING documented as of this encounter Miscellaneous Notes [...] to see her? 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 documented as of this encounter Care Teams Finisher Special Stocks Relationship Specialty Start Date End Date Jeramie Sterling MD PCP - General Family Practice 07/24/14 11/09/15 Estela Dacosta PA-C PCP - General Family Practice 11/10/15 12/17/15 Kelley Love MD [address] , [address] [address] PCP - General Family Practice 12/18/15 03/17/16 Alek Jones MD [address] [place] [address] PCP - General Family Practice 03/18/16 01/11/22 [place] [address] [place] [address] PCP - General Family Medicine 01/12/22 11/14/23 Davonte Juan APRN CNP [address] [place] [address] PCP - General Family Medicine 11/15/23 Rose Pelletier, [facility] Rheologist 09/19/14 07/10/20 Alek Jones MD [address], [address] [address] Assigned PCP 04/08/19 05/24/20 Alek Jones MD [address], [address] [address] Assigned PCP 12/25/17 03/31/19 Alexa Simon PA-C [address] , [address] [address] Assigned PCP 04/01/19 04/07/19 Alexa Simon PA-C [address], [address] [address] Assigned PCP 05/25/20 06/07/20 Alek Jones MD [address] , [address] [address] Assigned PCP 06/08/20 02/14/21 [place](Fgs), [address] [address] Usp Facility 10/27/20 11/14/20 Alexa Simon PA-C [address] , [address] [address] Assigned PCP 02/15/21 02/28/21 Alek Jones MD [address] , [address] [address] Assigned PCP 03/01/21 07/18/23 Brayden Du MD 9 [facility] [id number] [place] [address] MD [place] 05/06/22 Alexa Simon PA-C [address], [address] [place] [address] Assigned PCP 07/19/23 11/17/23 [place] [address] [place] [address] Internal Medicine 11/15/23 Kelsy Matthews 1700 [place] [address] Geriatric Services Digital Project Manager 11/15/23 (Fgs), [facility] Senior [facility]pts [facility] Living [address] [place] [address] 11/15/23 Davonte Juan APRN LABORER BRUSH CLEARING [address] [place] [address] Assigned PCP 11/18/23 documented as of this encounter
--- OUTSIDE RECORDS SUMMARY | 2024-01-16 16:07 | XMS_ITS | Encounter Summary ---
Author Organization [place] Address [address] [place] [address]. [place] [address] Care Team Providers Care Library Services Coordinator Name Role Phone Jeramie Sterling MD Primary Care Provider Elodia Rose Oliveira HUNTER SKIN DIVER Unavailable [phone] Estela Dacosta PA-C Primary Care Pro vider Kelley Love MD Primary Care Provider [phone] Alek Jones MD Primary Care Provide r Alek Jones MD Unavailable [phone] Alek Jones MD Unavailable +[phone] Alexa Simon PA-C Unavailable + [phone] Alexa Simon PA-C Unavailable + [phone] Alek Jones MD Unavailable +[phone] [place](Fgs)[facility] Unavailable Alexa Simon PA-C Unavailable + [phone] Alek Jones MD Unavailable +[phone] Neelima Shukla DO Primary Care Provider [phone] Brayden Du MD Unavailable Alexa Simon PA-C Unavailable + [phone] Davonte Juan APRN [facility] Primary Care Pr ovider Maya Alfaro MD Unavailable [phone] MatthewsKelsy huerta Unavailable (Fgs), [facility] Unavailable Davonte Juan APRN APPLIANCE LINE ASSEMBLER Unavailable Reason for Visit * Reason Comments Medication Refill Encounter Details Date Type Department Care Team (Late st Contact Info) Description 09/13/[address] [facility] Physicians [address] [place] [address] [place] [phone] Jeramie Sterling MD XXXX RESIGNED/INACTIVE XXXX Medication Refill Social History Tobacco Use Types Packs/Day Years Used Date Smoking Tobacco: Former Smokeless Tobacco: Never Alcohol Use Standard Drinks/Week Comments No 0 (1 standard drink = 0.6 oz pur e alcohol) Sex and Gender Information Value Date Recorded Sex Assigned at Female 02/28/2021 1:24 PM RUSSET REPAIRER Gender Identity Female 02/28/2021 1:23 PM RUSSET REPAIRER Sexual Orientation Straight 02/28/2021 1: 20 PM RUSSET REPAIRER documented as of this encounter Miscellaneous Notes [...] documented as of this encounter Care Teams Library Services Coordinator Relationship Specialty Start Date End Date Jeramie Sterling MD PCP - General Family Practice 07/24/14 11/09/15 Estela Dacosta PA-C PCP - General Family Practice 11/10/15 12/17/15 Kelley Love MD [address] , [address] [address] PCP - General Family Practice 12/18/15 03/17/16 Alek Jones MD [address], [address] [address] PCP - General Family Practice 03/18/16 01/11/22 [place] [address] [place] [address] PCP - General Family Medicine 01/12/22 11/14/23 Davonte Juan APRN CNP [address] [place] [address] PCP - General Family Medicine 11/15/23 Rose Pelletier, [facility] Oracle Ebs Developer 09/19/14 07/10/20 Alek Jones MD [address], [address] [address] Assigned PCP 04/08/19 05/24/20 Alek Jones MD [address], [address] [address] Assigned PCP 12/25/17 03/31/19 Alexa Simon PA-C [address] [address] Assigned PCP 04/01/19 04/07/19 Alexa Simon PA-C [address] [address] Assigned PCP 05/25/20 06/07/20 Alek Jones MD [address] [address] Assigned PCP 06/08/20 02/14/21 [place]), [address] [address] Assisted Facility 10/27/20 11/14/20 Alexa Simon PA-C [address] [address] Assigned PCP 02/15/21 02/28/21 Alek Jones MD [address] [address] Assigned PCP 03/01/21 07/18/23 Brayden Du MD 909 [facility] [id number] [place] [address] MD Reynolds 05/06/22 Alexa Simon PA-C [address], [address] [place] [address] Assigned PCP 07/19/23 11/17/23 [place] [address] [place] [address] Internal Medicine 11/15/23 Kelsy Matthews [address] [place] [address] Geriatric Services Gem Technician 11/15/23 (Fgs), [facility]pts [facility] Living [address] [place] [phone] 11/15/23 Davonte Juan APRN APPLIANCE LINE ASSEMBLER [address] [place] [address] Assigned PCP 11/18/23 documented as of this encounter
--- OUTSIDE RECORDS SUMMARY | 2024-01-16 16:07 | XMS_ITS | Encounter Summary ---
Author Organization [place] Address [address] [place] [address]. [place] [address] Care Team Providers Care Power Tool Repairer Name Role Phone Jeramie Sterling MD Primary Care Provider Elodia Rose Oliveira INTERLOCKING AND SIGNAL MECHANIC Unavailable [phone] Estela Dacosta PA-C Primary Care Pro vider Kelley Love MD Primary Care Provider [phone] Alek Jones MD Primary Care Provide r Alek Jones MD Unavailable [phone] Alek Jones MD Unavailable [phone] Alexa Simon PA-C Unavailable + [phone] Alexa Simon PA-C Unavailable + [phone] Alek Jones MD Unavailable +[phone] [place](Fgs)[facility] Unavailable Alexa Simon PA-C Unavailable + [phone] Alek Jones MD Unavailable +[phone] Neelima Shukla DO Primary Care Provider [phone] Brayden Du MD Unavailable Alexa Simon PA-C Unavailable + [phone] Davonte Juan APRN [facility] Primary Care Pr ovider Maya Alfaro MD Unavailable [phone] MatthewsKelsy huerta Unavailable (Fgs), [facility] Unavailable Davonte Juan APRN SECRETARY BOARD OF COMMISSIONERS Unavailable Reason for Visit * Reason Comments Medication Refill Encounter Details Date Type Department Care Team (Late st Contact Info) Description 11/12/2014 Refill [facility] Physicians [address] [place] [address] [place] [phone] Jeramie Sterling MD XXXX RESIGNED/INACTIVE XXXX Medication Refill Social History Tobacco Use Types Packs/Day Years Used Date Smoking Tobacco: Former Smokeless Tobacco: Never Alcohol Use Standard Drinks/Week Comments No 0 (1 standard drink = 0.6 oz pur e alcohol) Sex and Gender Information Value Date Recorded Sex Assigned at Female 02/28/2021 1:24 PM SUPERVISOR PAPER COATING Gender Identity Female 02/28/2021 1:23 PM SUPERVISOR PAPER COATING Sexual Orientation Straight 02/28/2021 1: 20 PM SUPERVISOR PAPER COATING documented as of this encounter Miscellaneous Notes [...] as of this encounter Care Teams Power Tool Repairer Relationship Specialty Start Date End Date Jeramie Sterling MD PCP - General Family Practice 07/24/14 11/09/15 Estela Dacosta PA-C PCP - General Family Practice 11/10/15 12/17/15 Kelley Love MD [address] , [address] [address] PCP - General Family Practice 12/18/15 03/17/16 Alek Jones MD [address] , [address] [address] PCP - General Family Practice 03/18/16 01/11/22 [place] [address] [place] [address] PCP - General Family Medicine 01/12/22 11/14/23 Davonte Juan APRN [facility] [address] [place] [address] PCP - General Family Medicine 11/15/23 Rose Pelletier, [facility] Apparatus Repair Mechanic 09/19/14 07/10/20 Alek Jones MD [address] , [address] [address] Assigned PCP 04/08/19 05/24/20 Alek Jones MD [address] , [address] [address] Assigned PCP 12/25/17 03/31/19 Alexa Simon PA-C [address], [address] [place] [address] Assigned PCP 04/01/19 04/07/19 Alexa Simon PA-C [address], [address] [place] [address] Assigned PCP 05/25/20 06/07/20 Alek Jones MD [address], [address] [place] [address] Assigned PCP 06/08/20 02/14/21 [place](s)[address] [address] Care Home Facility 10/27/20 11/14/20 Alexa Simon PA-C [address], [address] [address] Assigned PCP 02/15/21 02/28/21 Alek Jones MD [address], [address] [address] Assigned PCP 03/01/21 07/18/23 Brayden Du MD 9 [facility] [id number] [place] [address] MD Reynolds 05/06/22 Alexa Simon PA-C [address], [address] [place] [address] Assigned PCP 07/19/23 11/17/23 Maya Alfaro MD 1700 [place] [address] Internal Medicine 11/15/23 Kelsy Matthews 1700 [place] [address] Geriatric Services Bending Roll Hand 11/15/23 (Fgs), [facility] Apts Asst Living [address] [place] [phone] 11/15/23 Davonte Juan APRN CNP 1700 [place] [address] Assigned PCP 11/18/23 documented as of this encounter
--- OUTSIDE RECORDS SUMMARY | 2024-01-16 16:07 | XMS_ITS | Encounter Summary ---
Author Organization [place] Address [address] [place] [address]. [place] [address] Care Team Providers Care Slab Worker Name Role Phone Jeramie [place] MD Primary Care Provider Elodia Rose Oliveira PROOF TECHNICIAN HELPER Unavailable [phone] Estela Dacosta PA-C Primary Care Pro vider Kelley Love MD Primary Care Provider [phone] Alek Jones MD Primary Care Provide r Alek Jones MD Unavailable +[phone] Alek Jones MD Unavailable +[phone] Alexa Simon PA-C Unavailable + [phone] Alexa Simon PA-C Unavailable + [phone] Alek Jones MD Unavailable +[phone] [place]([facility] Unavailable Alexa Simon PA-C Unavailable + [phone] Alek Jones MD Unavailable +[phone] Neelima Shukla DO Primary Care Provider [phone] Brayden Du MD Unavailable Alexa Simon PA-C Unavailable + [phone] Davonte Juan APRN [facility] Primary Care Pr ovider Maya Alfaro MD Unavailable [phone] MatthewsKelsy huerta Unavailable (Fgs), [facility] Unavailable Davonte Juan APRN [facility] Unavailable Reason for Visit * Reason Comments Medication Refill Encounter Details Date Type Department Care Team (Late st Contact Info) Description 02/18/2015 Refill [facility] [address] [place] [address] [place] [phone] Jeramie [place] MD XXXX RESIGNED/INACTIVE XXXX Medication Refill Social History Tobacco Use Types Packs/Day Years Used Date Smoking Tobacco: Former Smokeless Tobacco: Never Alcohol Use Standard Drinks/Week Comments No 0 (1 standard drink = 0.6 oz pur e alcohol) Sex and Gender Information Value Date Recorded Sex Assigned at Female 02/28/2021 1:24 PM OIL FIELD TECHNICIAN Gender Identity Female 02/28/2021 1:23 PM OIL FIELD TECHNICIAN Sexual Orientation Straight 02/28/2021 1: 20 PM OIL FIELD TECHNICIAN documented as of this encounter Miscellaneous Notes * Telephone Encounter - Jeramie [place] MD - 02/18/2015 11:54 AM OIL FIELD TECHNICIAN IS THIS A NEW MED, NO DX, HAVE WE RX IN PAST, ?? FIELD TECHNICIAN * Telephone Encounter - Deloris Eddy CMA - 02/18/2015 8:00 AM CST Pending Prescriptions: Disp Refills PROCTOZONE-HC 2.5 % rectal cream [Pharmac*30 g 0 Sig: INSERT 1 APPLICATION RECTALLY THREE TIMES DAILY FOR 10 DAYS You never prescribed this, are you willing to fill? Please associate dx code FIELD TECHNICIAN 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 documented as of this encounter Care Teams Slab Worker Relationship Specialty Start Date End Date Jeramie [place] MD PCP - General Family Practice 07/24/14 11/09/15 Estela Dacosta PA-C PCP - General Family Practice 11/10/15 12/17/15 Kelley Love MD [address] , [address] [address] PCP - General Family Practice 12/18/15 03/17/16 lAek Jones MD [address] , [address] [address] PCP - General Family Practice 03/18/16 01/11/22 [place] [address] [place] [address] PCP - General Family Medicine 01/12/22 11/14/23 Davonte Juan APRN [facility] [address] [place] [address] PCP - General Family Medicine 11/15/23 Rose Pelletier, PROOF TECHNICIAN HELPER Marketing Content Specialist 09/19/14 07/10/20 Alek Jones MD [address] , [address] [address] Assigned PCP 04/08/19 05/24/20 Alek Jones MD [address], [address] [address] Assigned PCP 12/25/17 03/31/19 Alexa Simon PA-C [address], [address] [address] Assigned PCP 04/01/19 04/07/19 Alexa Simon PA-C [address], [address] [address] Assigned PCP 05/25/20 06/07/20 Alek Jones MD [address], [address] [address] Assigned PCP 06/08/20 02/14/21 [place]), [address] [phone] [facility] Facility 10/27/20 11/14/20 Alexa Simon PA-C [address], [address] [address] Assigned PCP 02/15/21 02/28/21 Alek Jones MD [address], [address] [address] Assigned PCP 03/01/21 07/18/23 Brayden Du MD [address] [place] [address] [id number] [address] Neurology 05/06/22 Alexa [place] PA-C [address] , [facility] [address] [place] [address] Assigned PCP 07/19/23 11/17/23 Maya Alfaro MD [address] [place] [address] Internal Medicine 11/15/23 Kelsy [place] [address] [place] [address] Geriatric Services Cable Coverer 11/15/23 (Fgs), [facility] [address] [place] [phone] 11/15/23 Davonte Juan APRN [facility] [address] [place] [address] Assigned PCP 11/18/23 documented as of this encounter
--- OUTSIDE RECORDS SUMMARY | 2024-01-16 16:07 | XMS_ITS | Clinical Summary ---
Author Organization [email or web address] Address [address] [place] [address] Care Team Providers Care Embosser Apprentice Name Role Phone Alek Jones MD Primary Care Provider Source Comments You are receiving this document as you are listed as the primary care provider,follow-up provider, or the patient has been referred to you for consultation.This is in compliance with the Medicare and[facility] Cent[facility] EHR Incentive Program,which states Providers who transition their patient to another setting of careor provider of care or refers their patient to another provider of care shouldprovide summary care record for each transition of care or referral. Beauty Booked Allergies Active Allergy Reactions Criticality Noted Date [...] Vitamin D insufficiency 05/16/2022 Mixed dyslipidemia 05/16/2022 Overview (07/09/2022): ASCVD 10 year risk 5%. 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 Symptomatic menopausal or female climacteric sta mark 05/27/2009 Overview (11/17/2016): LW Onset: 02/2008 ; Menopause Convulsions 12/23/2008 Overview (11/17/2016): Seizure NOS Restless legs syndrome (RLS) 12/23/2008 Overview (11/17/2016): Restless Leg Syndrome Insomnia 12/23/2008 Overview (11/17/2016): Insomnia NOS Allergic rhinitis 12/23/2008 Overview (11/17/2016): Rhinitis Allergic NOS Restless legs syndrome 07/11/2006 Overview (07/09/2022): Restless Leg Syndrome Anxiety 04/01/2006 Insomnia 04/01/2006 Overview (07/09/2022): Insomnia NOS Urinary incontinence 05/22/2004 Overview (11/17/2016): LW Onset: 49Cbu84 ; Incontinence Urinary NOS Disorder of bone and cartilage 05/22/2004 Overview (11/17/2016): LW Onset: 52Vcl78 ; Osteopenia Migraine 03/08/2003 Overview (11/17/2016): LW Onset: 90Sen53 ; Migraine Without Aura 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 Overview (11/17/2016): LW Modifier: Resected 10/2000 LW Onset: 83Yfm75 ; Arteriovenous Malformation Depression, major, in remission [...] 72.1 kg (159 lb) 03/31/2020 2:15 PM TAXONOMY TEACHER Height 160 cm (5' 3) 03/31/2020 2:15 PM TAXONOMY TEACHER Body Mass Index 28.17 03/31/2020 2:15 PM TAXONOMY TEACHER Plan of Treatment Health Maintenance Due Date Last Done Comments Colon Cancer Screening Plan Due 1955 Hep C Screening (Preventive Services) 1955 Medicare Annual Wellness Visit 1955 Mammogram 05/31/2012 06/01/2011, 0904/2009, 07/11/2008 Cholesterol 04/15/2015 04/15/2010, 09/25/1997 Dexa 2022 DTaP/Tdap/Td (4 - Tdap) 09/19/2022 09/20/19 13, 09/01/2007, 01/04/2006 COVID-19 Vaccine ( season) 2023 02/10/2022, 10/28/2021, 02/23/2021, Additional history exists Influenza (#1) 2023 02/10/2022, 01/27, 12/10/2019, Additional history exists RSV (1 - 1-dose 75+ series) 2032 Zoster/Shingles Completed 12/10/2019, 11/26, 03/02/2019, Additional history [...] on patient's age to complete this topic Infant RSV Aged Out No longer eligi ble based on patient's age to complete this topic MCV4 Aged Out No longer eligi ble based on patient's age to complete this topic Procedures Procedure Name Priority Date/Time Associated Diagnosis Comments MM MAMMOGRAM SCREENING BILAT W CAD Routine 06/01/2011 12:35 PM TAXONOMY TEACHER Routine gynecological examination LIPID PANEL & DIRECT LDL (IF NEEDED) Routine 04/15/2010 1:56 PM TAXONOMY TEACHER from Last 3 Months or Most Recently Relevant to Health Maintenance Results * (ABNORMAL) MM Mammogram Screening Bilat W CAD (06/01/2011 12:35 PM TAXONOMY TEACHER) Anatomical Region Laterality Modality Breast Bilateral Mammography Impressions 06/01/2011 2:31 PM TAXONOMY TEACHER IMPRESSION: RIGHT BREAST: Architectural distortion posteriorly. Spot compression and ultrasound are recommended at this time. LEFT BREAST: Negative, no evidence of malignancy. Normal interval follow-up is recommended in 12 months. OVERALL ASSESSMENT - CATEGORY 0 - INCOMPLETE: NEED ADDITIONAL IMAGING EVALUATION END OF IMPRESSION SJW Narrative 06/01/2011 2:31 PM TAXONOMY TEACHER Comparison is made to films from 11/27/2009 [...] and Direct LDL(If Needed) (04/15/2010 1:56 PM TAXONOMY TEACHER) Cholesterol 264(H) 0 - 200 mg/dL HP CONVERSION Triglycerides 87 0 - 149 mg/dL HP CONVERSION HDL Cholesterol 83 >39 mg/dL HP CONVERSION Cholesterol/HDL Ratio Screen 3.2 No normal range HP CONVERSION LDL Calculated 164(H) 19 - 130 mg/dL HP CONVERSION Hours Fasting 12 No normal range HP CONVERSION 04/15/2010 1:56 PM TAXONOMY TEACHER Deandra Webb MD LAB_1 HP CONVERSION from Last 3 Months or Most Recently Relevant to Health Maintenance Care Teams Embosser Apprentice Relationship Specialty Start Date End Date Alek Jones MD [address], [address] [place] [address] PCP - General Family Practice 03/17/20
--- OUTSIDE RECORDS SUMMARY | 2024-01-16 16:07 | XMS_ITS | Encounter Summary ---
Author Organization [place] Address [address] [place] [address]. [place] [address] Care Team Providers Care Supervisor Inspection Name Role Phone Jeramie [place] MD Primary Care Provider Elodia Rose Oliveira PRODUCT CONTROL AND LOGISTICS ANALYST Unavailable [phone] Estela Dacosta PA-C Primary Care Pro vider Kelley Love MD Primary Care Provider [phone] Alek Jones MD Primary Care Provide r Alek Jones MD Unavailable [phone] Alek Jones MD Unavailable [phone] Alexa [place] PA-C Unavailable + [phone] Alexa Simon PA-C Unavailable + [phone] Alek Jones MD Unavailable +[phone] [place](Fgs)[facility] Unavailable Alexa [place] PA-C Unavailable + [phone] Alek Jones MD Unavailable [phone] Neelima Shukla DO Primary Care Provider [phone] Brayden Du MD Unavailable Alexa [place] PA-C Unavailable + [phone] Davonte Juan APRN [facility] Primary Care Pr ovider Maya Alfaro MD Unavailable [phone] MatthewsKelsy valentin Unavailable (Fgs), [facility] Living Unavailable Davonte Juan APRN ACCOUNT SPECIALIST Unavailable Reason for Visit * Reason Comments Medication Refill Encounter Details Date Type Department Care Team (Late st Contact Info) Description 10/14/2014 Refill [facility] [address] [phone] Jeramie [place] MD XXXX RESIGNED/INACTIVE XXXX Medication Refill Social History Tobacco Use Types Packs/Day Years Used Date Smoking Tobacco: Former Smokeless Tobacco: Never Alcohol Use Standard Drinks/Week Comments No 0 (1 standard drink = 0.6 oz pur e alcohol) Sex and Gender Information Value Date Recorded Sex Assigned at Female 02/28/2021 1:24 PM SUPERVISOR PHOSPHATIC FERTILIZER Gender Identity Female 02/28/2021 1:23 PM SUPERVISOR PHOSPHATIC FERTILIZER Sexual Orientation Straight 02/28/2021 1: 20 PM SUPERVISOR PHOSPHATIC FERTILIZER documented as of this encounter Plan of Treatment Not on file documented as of this encounter Visit Diagnoses Not on filedocumented in this encounter Additional Health Concerns Infection Onset Date Last Indicated Resolved Time 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/07/2020 11/07/2020 11/09/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 documented as of this encounter Care Teams Supervisor Inspection Relationship Specialty Start Date End Date Jeramie [place] MD PCP - General Family Practice 07/24/14 11/09/15 Estela Dacosta PA-C PCP - General Family Practice 11/10/15 12/17/15 Kelley Love MD [address] , [address] [place] [address] PCP - General Family Practice 12/18/15 03/17/16 Alek Jones MD [address] , [address] [address] PCP - General Family Practice 03/18/16 01/11/22 [place] [address] [place] [address] PCP - General Family Medicine 01/12/22 11/14/23 Davonte Juan APRN [facility] [address] [place] [address] PCP - General Family Medicine 11/15/23 Rose Pelletier, [facility] Comptometrist 09/19/14 07/10/20 Alek Jones MD [address] , [address] [address] Assigned PCP 04/08/19 05/24/20 Alek Jones MD [address] [address] [address] Assigned PCP 12/25/17 03/31/19 Alexa [place] [facility]-C [address] [facility] [address] [address] Assigned PCP 04/01/19 04/07/19 Alexa [facility]-C [address] [facility] [address] [address] Assigned PCP 05/25/20 06/07/20 Alek Jones MD [address], [address] [address] Assigned PCP 06/08/20 02/14/21 [place](Fgs), [address] [phone] [facility] Care Facility 10/27/20 11/14/20 Alexa [place] PA-C [address] , [address] [address] Assigned PCP 02/15/21 02/28/21 Alek Jones MD [address] , [address] [address] Assigned PCP 03/01/21 07/18/23 Brayden Du MD [address] [facility], [place] [address] Neurology 05/06/22 Alexa Simon PA-C [address] , [address] [address] Assigned PCP 07/19/23 11/17/23 Maya Alfaro MD [address] [place] [address] Internal Medicine 11/15/23 Kelsy [place] [address] [place] [address] Geriatric Services Sales Attendant Building Materials 11/15/23 (Fgs), [facility] [address] [place] [phone] 11/15/23 Davonte Juan APRN ACCOUNT SPECIALIST [address] [place] [address] Assigned PCP 11/18/23 documented as of this encounter
--- NOTE | 2024-01-16 16:10 | ED_ITS ---
HPI - Fall General Time Seen by Provider: 16:10 Date Seen: 01/16/24 Chief Complaint: Fall/Minor Trauma Stated Complaint: fall Time Seen by Provider: 01/16/24 15:57 Source: patient, EMS and RN notes reviewed Mode of arrival: EMS Limitations: no limitations History of Present Illness HPI Narrative: This 68yo female is brought in by ambulance from home, which is reported to be an assisted living in [place], for unwitnessed falls. Patient states that she fell in the tub, slipped around 230pm or so today. She was known to pull the call light in her facility for assistance after fall, was noted to fall from her wheelchair onto the floor per EMS. The facility noted that this was her second unwitnessed fall of the day. She has history of alcohol use and is questioned on this, she seems sensitive and asks why everyone is asking her. It is explained to her that we do need to know if people are altered by alcohol or chemicals as it can affect management of patients, patient does seem to accept this and seems less offended. Patient denies any loss of consciousness but do question reliability here. She denies any visual changes, no double vision. She does states she has a headache, can feel the swelling and bruising on the left forehead area. 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 She was seen in our ER on 07/05/2023 with complications of alcohol use. She had been noted to be in [facility] ER for alcohol intoxication June 05 and June 10. She ended up hospitalized at our facility July 04 through July 08, had unsafe living situation where she was residing independently in an apartment. Her past medical history is significant for anxiety and depression, alcohol use disorder, GERD, migraine, chronic pain, seizure disorder, cerebral aneurysm, history of alcohol withdrawal. Related Data Home Medications ?Medication ?Instructions ?Recorded ?Confirmed aspirin 81 mg chewable tablet 81 mg PO DAILY 07/05/23 07/05/23 calcium carbonate (Antacid 200 mg PO QID PRN 07/05/23 07/05/23 (calcium carbonate)) cholecalciferol (vitamin D3) 50 50 mcg PO DAILY 07/05/23 07/05/23 mcg (2,000 unit) capsule (Vitamin D3) citalopram 40 mg tablet 40 mg PO DAILY 07/05/23 07/05/23 clopidogrel 75 mg tablet 75 mg PO Q48H 07/05/23 07/05/23 cyanocobalamin (vitamin B-12) 1,000 mcg PO DAILY 07/05/23 07/05/23 1,000 mcg tablet folic acid 1 mg tablet 1 mg PO DAILY 07/05/23 07/05/23 metoprolol tartrate 50 mg tablet 50 mg PO BID blood pressure 07/05/23 07/05/23 mirtazapine 45 mg tablet 45 mg PO QPM 07/05/23 07/05/23 multivitamin 1 tab PO DAILY 07/05/23 07/05/23 nicotine (polacrilex) 4 mg buccal 4 mg buccal Q1-2H PRN 07/05/23 07/05/23 lozenge omeprazole 20 mg capsule,delayed 20 mg PO QAM 07/05/23 07/05/23 release phenytoin sodium extended 100 mg 100 mg PO BID@,07/05/23 07/05/23 capsule phenytoin sodium extended 100 mg 200 mg PO HS 07/05/23 07/05/23 capsule (Dilantin Extended) pregabalin 300 mg capsule 300 mg PO BID 07/05/23 07/05/23 ropinirole 0.5 mg tablet 1.5 mg PO HS 07/05/23 07/05/23 rotigotine 2 mg/24 hour 1 patch topical DAILY 07/05/23 07/05/23 transdermal 24 hour patch (Neupro) sumatriptan succinate 100 mg tablet 100 mg PO BID PRN migraine 07/05/23 07/05/23 suvorexant 20 mg tablet (Belsomra) 20 mg PO HS 07/05/23 07/05/23 Allergies Allergy/AdvReac Type Severity Reaction Status Date / Time No Known Drug Allergies Allergy Verified 07/05/23 16:28 Review of Systems Status of ROS: Reports: 6 or more systems reviewed and unremarkable except as noted in History and below [facility] Medical History Alcohol use disorder ?F10.90 - Alcohol use, unspecified, uncomplicated (ICD-10) Restless leg syndrome ?G25.81 - Restless legs syndrome (ICD-10) Depression ?F32.A - Depression, unspecified (ICD-10) Hepatic steatosis ?K76.0 - Fatty (change of) liver, not elsewhere classified (ICD-10) History of CVA (cerebrovascular accident) ?Z86.73 - Personal history of transient ischemic attack (TIA), and cerebral infarction without residual deficits (ICD-10) Hypertension ?I10 - Essential (primary) hypertension (ICD-10) Dyslipidemia ?E78.5 - Hyperlipidemia, unspecified (ICD-10) Surgical History H/O craniotomy ?Z98.890 - Other specified postprocedural states (ICD-10) H/O brain surgery ?Z98.890 - Other specified postprocedural states (ICD-10) Social History Narrative: Pt lives in [facility] apartments at [facility]. he has 5 hours of [employer]PER[employer] Tue-. She has a good friend in the building who helps her as well, this is Damian [phone] and he has a martini to her apartment What is your current living situation?: I presently have a place to live Problems where you live: no known problems Problems where you live details: N/A In the past 12 months, utilities in danger of being shut off: yes In past 12 months, lack of transportation kept you from medical appts, meetings, work, or getting things needed for daily living: no In the past 12 mos, have been you worried that your food would run out before you had money to buy more?: sometimes true In the past 12 mos, the food you bought just didn't last and you didn't have money to buy more?: sometimes true Highest level of school completed/degree received: 12th grade, no diploma Smoking Status: Never smoker How often do you have a drink containing alcohol: 2-3 times a week Alcohol type: wine Alcohol type details: bottle of wine daily How many standard drinks containing alcohol do you have on a typical day: 1 or 2 How often do you have six or more drinks on one occasion: Never AUDIT-C Alcohol total score: 3 Non-prescribed substance use: denies use Caffeine: Yes How often does anyone, including family, friends and others, physically hurt you : never How often does anyone, including family, friends and others, insult or talk down to you: never How often does anyone, including family, friends and others, threaten you with harm: never How often does anyone, including family, friends and others, scream or curse at you: never service: No Exam Const: Vital Signs, click to edit/add: Vital Signs - 24 hr 01/16/24 16:06 01/16/24 16:30 01/16/24 17:00 Temperature 97.6 F Pulse Rate Pulse Rate [Pulse Oximeter] 79 82 85 Respiratory Rate 19 18 18 Blood Pressure Blood Pressure [Ri ght Upper Arm] 125/77 132/82 138/90 H Pulse Oximetry 95 98 98 Oxygen Delivery Me thod Room Air Room Air Room Air 01/16/24 17:18 01/16/24 17:19 01/16/24 17:21 Temperature Pulse Rate 82 81 79 Pulse Rate [Pulse Oximeter] Respiratory Rate 16 Blood Pressure 133/82 132/78 Blood Pressure [Ri ght Upper Arm] Pulse Oximetry 96 97 96 Oxygen Delivery Me thod Room Air 01/16/24 17:30 01/16/24 17:41 01/16/24 17:47 Temperature Pulse Rate 81 80 80 Pulse Rate [Pulse Oximeter] Respiratory Rate 18 Blood Pressure 129/92 H Blood Pressure [Ri ght Upper Arm] Pulse Oximetry 97 97 96 Oxygen Delivery Me thod Room Air 01/16/24 17:57 01/16/24 18:00 01/16/24 18:01 Temperature Pulse Rate 79 79 Pulse Rate [Pulse Oximeter] Respiratory Rate Blood Pressure 114/57 L Blood Pressure [Ri ght Upper Arm] Pulse Oximetry 98 96 97 Oxygen Delivery Me thod 01/16/24 18:15 01/16/24 18:21 01/16/24 18:30 Temperature Pulse Rate 84 82 76 Pulse Rate [Pulse Oximeter] Respiratory Rate Blood Pressure 113/72 Blood Pressure [Ri ght Upper Arm] Pulse Oximetry 97 97 95 Oxygen Delivery Me thod 01/16/24 18:42 01/16/24 18:45 01/16/24 18:46 Temperature Pulse Rate 87 87 82 Pulse Rate [Pulse Oximeter] Respiratory Rate Blood Pressure 113/73 Blood Pressure [Ri ght Upper Arm] Pulse Oximetry 97 96 94 Oxygen Delivery Me thod 01/16/24 19:00 01/16/24 19:30 Temperature Pulse Rate 79 86 Pulse Rate [Pulse Oximeter] Respiratory Rate Blood Pressure Blood Pressure [Ri ght Upper Arm] Pulse Oximetry 95 95 Oxygen Delivery Me thod This 68-year-old female is somnolent but easily arousable, speech is somewhat slurred when she does talk. Teeth are dry in have matter between them, gums or dry. No traumatic change in the oropharynx. Lips slightly dry. Symmetrical facial function. She can open her eyes, pupils are equal round and reactive, conjugate gaze, sclera appear clear. She has bruising and swelling on the left supraorbital ridge in into the forehead, no open wound. No drainage from ears or nares. She has a C-collar on, cannot get behind her neck to palpate centrally. Lungs are clear, good air entry, no wheezing or crackles. CV regular rate and rhythm, no murmur, normal S1-S2, no S3-S4. She can lift both arms, cannot hold her left 1 as high but there is no asterixis. Her hand supervisor shuttle veneering strength seemed to be symmetrical, do not note significant weakness of the left hand. Has normal sensation per report. Can lift each leg off the bed, will wiggle her feet and toes. Note no traumatic change of arms or legs. Abdomen is soft, nontender, no organomegaly or masses. She has no palpable tenderness over clavicles are her anterior chest wall. Documenting provider has reviewed patient's vital signs: yes Course Course ED Course: This patient certainly seems like she could be intoxicated. She has history of CVA from surgical resection of AVM. It is possible there could be infectious etiology but she is afebrile. Will do a full complement of labs including toxicology and alcohol level. She will need facial imaging to rule out fracture, head CT to rule out intracranial pathology including bleeding, do feel we need to clear her neck with CT imaging. Reevaluation(s) Time of Reevaluation #1: 19:03 Reevaluation #1: Have reviewed with patient that her ammonia is up, reviewed that I am very concerned for her and worsening liver failure. She and I reviewed that she is still legally intoxicated with an alcohol level of 0.09. Did discuss with her that a note she is sensitive to this but that she is still drinking and this is going to lead to worsening liver failure. She does not want hospitalization. She states she remembers both falls on talking to her at this time, did question her about having 2 falls today and not the 1 we talked about. In her defense, I just asked about the fall and she told me about the most recent 1. I thought she was in the tub a but did not clarify, she states she fell from the wheelchair hitting her face on the tub. Have discussed with the patient that I really feel she needs to quit drinking, this is not seem to be something she is willing to consider or here at this time. She does not want hospitalization, states she needs to go home. Time of Reevaluation #2: 19:42 Reevaluation #2: Have went back in to talk to patient further. I have concerns that there might be hepatic encephalopathy with this patient but at this time she is more alert. She is unclear when she last drank, maybe yesterday. We have further discussed my concerns about her alcoholism affecting her liver, development of hepatic encephalopathy. Our hospitalist is willing to come in and talk to her. As far as neuromuscular changes, she has no asterixis, DTRs in her left arm about 2 to 3+ and right 1+, she has some increased tone and rigidity in her left arm but patient states that is baseline after her stroke. There is no clonus, no rigidity in her right arm. This is difficult for me to fully assess new once is of hepatic encephalopathy in this patient, I have never met her before. She does seem more alert at this time but somnolent certainly can be with hepatic encephalopathy. She could be waking up more as her alcohol is wearing off, this is a very tough situation. Consultations Consultation #1: Our hospitalist Dr. Chen kindly consult on this patient, she does agree with me that this patient certainly is at risk but neither of us feel patient is willing to stop drinking. She is unwilling to stay in the hospital. Neither the hospitalist or myself feel that there is enough criteria to hold her here. 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 She does have a nurse practitioner that sees her monthly and has noted that she is falling, weak and has recommended stopping drinking. At this point, patient requested to go home and this will be honored. Time: 20:03 Vital Signs Vital signs: Initial Vital Signs Temperature 97.6 F 01/16/24 16:06 Temperature Source Temporal Artery Scan 01/16/24 16:06 Pulse Rate 79 01/16/24 16:06 Respiratory Rate 19 01/16/24 16:06 Blood Pressure 125/77 01/16/24 16:06 Blood Pressure Mean 93 01/16/24 16:06 Pulse Oximetry 95 01/16/24 16:06 Oxygen Delivery Method Room Air 01/16/24 16:06 Vital Signs Temperature 97.6 F 01/16/24 16:06 Pulse Rate 79 01/16/24 16:06 Respiratory Rate 19 01/16/24 16:06 Blood Pressure 125/77 01/16/24 16:06 Pulse Oximetry 95 01/16/24 16:06 Oxygen Delivery Method Room Air 01/16/24 16:06 Temperature 97.6 F 01/16/24 16:06 Pulse Rate 86 01/16/24 19:30 Respiratory Rate 18 01/16/24 17:41 Blood Pressure 113/73 01/16/24 18:45 Pulse Oximetry 95 01/16/24 19:30 Oxygen Delivery Method Room Air 01/16/24 17:41 MDM - Fall Lab Data Attestation: I reviewed the patient's lab results. Labs: Lab Results 01/16/24 01/16/24 01/16/24 Range/Units 14:45 16:11 16:17 WBC (4.50-11.00) K/uL RBC (4.00-5.20) m/uL Hgb (12.0-16.0) gm/dL Hct (33.0-51.0) % MCV (80-100) fL MCH (26-34) pg MCHC (32-36) gm/dL RDW Coeff of Lenora (11.5-15.5) % Plt Count (140-440) K/uL Neut % (Auto) (42.0-72.0) % Lymph % (Auto) (20-44) % Henry % (Auto) (0.0-11.0) % Eos % (Auto) (0.0-7.0) % Baso % (Auto) (0.0-3.0) % Neut # (Auto) (1.7-7.0) K/uL Lymph # (Auto) (0.90-2.90) K/uL Henry # (Auto) (0.00-0.90) K/UL Eos # (Auto) (0.00-0.50) K/uL Baso # (Auto) (0.00-0.30) K/uL Abs Immat Gran (auto) (0.00-0.30) K/uL Imm/Tot Granulo (auto) % INR (0.91-1.10) APTT (23-33) Seconds Sodium (135-149) mmol/L Potassium (3.6-5.1) mmol/L Chloride (96-114) mmol/L Carbon Dioxide (20-32) mmol/L Anion Gap (7-15) mEq/L BUN (7-30) mg/dL Creatinine (0.5-1.5) mg/dL Estimated Creat Clear Estimated GFR ml/min Glucose (60-115) mg/dL Lactate (0.5-1.9) mmol/L Calcium (8.4-10.6) mg/dL Magnesium (1.5-2.6) mg/dL Total Bilirubin (0.1-1.5) mg/dL Direct Bilirubin (0.0-0.5) mg/dL AST (12-35) U/L ALT (4-35) U/L Alkaline Phosphatase (40-150) U/L Ammonia (13.1-30.0) umol/L Troponin I (0.01-0.04) ng/mL C-Reactive Protein (0.5-1.0) mg/dL NT-Pro-B Natriuret Pep pg/mL Total Protein (6.0-8.3) g/dL Albumin (3.3-5.0) g/dL Lipase (23-300) U/L Urine Opiates Screen Negative (Negative) Ur Oxycodone Screen Negative (Negative) Urine Methadone Screen Negative (Negative) Ur Barbiturates Screen POSITIVE A (Negative) U Tricyclic Antidepress Negative (Negative) Ur Phencyclidine Scrn Negative (Negative) Ur Amphetamines Screen Negative (Negative) U Methamphetamines Scrn Negative (Negative) U Benzodiazepines Scrn Negative (Negative) Urine Cocaine Screen Negative (Negative) U Marijuana (THC) Screen Negative (Negative) Ur Drug Screen Comment See Note Ethyl Alcohol (0.01-0.03) % SARS-CoV-2 (PCR) Negative SARS-CoV-2 (Negative) Influenza Type A (PCR) Negative PCR FLU A (Negative) Influenza Type B (PCR) Negative PCR FLU B (Negative) RSV (PCR) Negative PCR RSV (Negative) Lab Acknowledgement Test Added 01/16/24 01/16/24 01/16/24 Range/Units 17:32 17:32 17:32 WBC 9.43 (4.50-11.00) K/uL RBC 4.69 (4.00-5.20) m/uL Hgb 10.9 L (12.0-16.0) gm/dL Hct 34.9 (33.0-51.0) % MCV 74 L (80-100) fL MCH 23 L (26-34) pg MCHC 31 L (32-36) gm/dL RDW Coeff of Lenora 18.6 H (11.5-15.5) % Plt Count 269 (140-440) K/uL Neut % (Auto) 66.6 (42.0-72.0) % Lymph % (Auto) 20.0 (20-44) % Henry % (Auto) 9.3 (0.0-11.0) % Eos % (Auto) 3.1 (0.0-7.0) % Baso % (Auto) 0.8 (0.0-3.0) % Neut # (Auto) 6.27 (1.7-7.0) K/uL Lymph # (Auto) 1.89 (0.90-2.90) K/uL Henry # (Auto) 0.90 (0.00-0.90) K/UL Eos # (Auto) 0.29 (0.00-0.50) K/uL Baso # (Auto) 0.08 (0.00-0.30) K/uL Abs Immat Gran (auto) 0.02 (0.00-0.30) K/uL Imm/Tot Granulo (auto) 0.2 % INR 1.29 H (0.91-1.10) APTT 31 (23-33) Seconds Sodium 141 (135-149) mmol/L Potassium 3.6 (3.6-5.1) mmol/L Chloride 96 (96-114) mmol/L Carbon Dioxide 33 H (20-32) mmol/L Anion Gap 12 (7-15) mEq/L BUN 15 (7-30) mg/dL Creatinine 0.6 (0.5-1.5) mg/dL Estimated Creat Clear 47.79 Estimated GFR 99 ml/min Glucose 125 H (60-115) mg/dL Lactate 2.3 H (0.5-1.9) mmol/L Calcium 8.5 (8.4-10.6) mg/dL Magnesium 2.2 Cancelled (1.5-2.6) mg/dL Total Bilirubin 0.2 (0.1-1.5) mg/dL Direct Bilirubin 0.1 (0.0-0.5) mg/dL AST 51 H (12-35) U/L ALT 30 (4-35) U/L Alkaline Phosphatase 166 H (40-150) U/L Ammonia 66.0 H (13.1-30.0) umol/L Troponin I < 0.01 L Cancelled (0.01-0.04) ng/mL C-Reactive Protein 0.6 (0.5-1.0) mg/dL NT-Pro-B Natriuret Pep 96 pg/mL Total Protein (6.0-8.3) g/dL Albumin (3.3-5.0) g/dL Lipase (23-300) U/L Urine Opiates Screen (Negative) Ur Oxycodone Screen (Negative) Urine Methadone Screen (Negative) Ur Barbiturates Screen (Negative) U Tricyclic Antidepress (Negative) Ur Phencyclidine Scrn (Negative) Ur Amphetamines Screen (Negative) U Methamphetamines Scrn (Negative) U Benzodiazepines Scrn (Negative) Urine Cocaine Screen (Negative) U Marijuana (THC) Screen (Negative) Ur Drug Screen Comment Ethyl Alcohol (0.01-0.03) % SARS-CoV-2 (PCR) (Negative) Influenza Type A (PCR) (Negative) Influenza Type B (PCR) (Negative) RSV (PCR) (Negative) Lab Acknowledgement 01/16/24 Range/Units 17:32 WBC (4.50-11.00) K/uL RBC (4.00-5.20) m/uL Hgb (12.0-16.0) gm/dL Hct (33.0-51.0) % MCV (80-100) fL MCH (26-34) pg MCHC (32-36) gm/dL RDW Coeff of Lenora (11.5-15.5) % Plt Count (140-440) K/uL Neut % (Auto) (42.0-72.0) % Lymph % (Auto) (20-44) % Henry % (Auto) (0.0-11.0) % Eos % (Auto) (0.0-7.0) % Baso % (Auto) (0.0-3.0) % Neut # (Auto) (1.7-7.0) K/uL Lymph # (Auto) (0.90-2.90) K/uL Henry # (Auto) (0.00-0.90) K/UL Eos # (Auto) (0.00-0.50) K/uL Baso # (Auto) (0.00-0.30) K/uL Abs Immat Gran (auto) (0.00-0.30) K/uL Imm/Tot Granulo (auto) % INR (0.91-1.10) APTT (23-33) Seconds Sodium (135-149) mmol/L Potassium (3.6-5.1) mmol/L Chloride (96-114) mmol/L Carbon Dioxide (20-32) mmol/L Anion Gap (7-15) mEq/L BUN (7-30) mg/dL Creatinine (0.5-1.5) mg/dL Estimated Creat Clear Estimated GFR ml/min Glucose (60-115) mg/dL Lactate (0.5-1.9) mmol/L Calcium (8.4-10.6) mg/dL Magnesium (1.5-2.6) mg/dL Total Bilirubin (0.1-1.5) mg/dL Direct Bilirubin (0.0-0.5) mg/dL AST (12-35) U/L ALT (4-35) U/L Alkaline Phosphatase (40-150) U/L Ammonia (13.1-30.0) umol/L Troponin I (0.01-0.04) ng/mL C-Reactive Protein (0.5-1.0) mg/dL NT-Pro-B Natriuret Pep Cancelled pg/mL Total Protein 7.9 (6.0-8.3) g/dL Albumin 4.6 (3.3-5.0) g/dL Lipase 93 (23-300) U/L Urine Opiates Screen (Negative) Ur Oxycodone Screen (Negative) Urine Methadone Screen (Negative) Ur Barbiturates Screen (Negative) U Tricyclic Antidepress (Negative) Ur Phencyclidine Scrn (Negative) Ur Amphetamines Screen (Negative) U Methamphetamines Scrn (Negative) U Benzodiazepines Scrn (Negative) Urine Cocaine Screen (Negative) U Marijuana (THC) Screen (Negative) Ur Drug Screen Comment Ethyl Alcohol 0.09 H (0.01-0.03) % SARS-CoV-2 (PCR) (Negative) Influenza Type A (PCR) (Negative) Influenza Type B (PCR) (Negative) RSV (PCR) (Negative) Lab Acknowledgement Imaging Data CT scan - head: Attestation: I have reviewed the pertinent imaging results. Radiologist's impression: Patient: [facility] Facility:?[facility] Patient ID:?[id number] Site Patient ID:?[id number]. Site :?[id number] Study:?CT-Head WITHOUT-01/16/2024 5:10:19 PM Ordering Physician:Jada Schmid Final Report: INDICATION: Fall. TECHNIQUE: Non-contrast CT of the head is submitted. No comparisons. FINDINGS: Mildly motion degraded examination, limiting fine detail evaluation. Postsurgical changes of prior right frontal craniotomy with underlying right frontal lobe encephalomalacia and multiple small metallic foci which may reflect embolization coils. There is also an embolization coil pack along the left ICA ophthalmic-paraclinoid segments. Associated beam hardening/streak artifacts limit evaluation of nearby structures. There is no evident acute intracranial hemorrhage or mass effect. No hydrocephalus. The basal cisterns are patent. No midline shift. No evident acute calvarial fractures, though evaluation about the vertex is markedly limited due to motion artifact. Left supraorbital superficial soft tissue swelling/hematoma without underlying calvarial fracture. Please see separately dictated same day CT facial bones for characterization of the partially visualized facial findings. IMPRESSION: No radiographic evidence of acute intracranial abnormalities, within the limitations noted above. Please note that all CT scans at this facility use dose modulation, iterative reconstruction, and/or weight-based dosing when appropriate to reduce radiation dose to as low as reasonably achievable. Dictated by Keshawn Soto MD @ 01/16/2024 5:55:00 PM (Electronic Signature) CT facial bones: Attestation: I have reviewed the pertinent imaging results. Radiologist's impression: Patient: LEO NICHOLAS Facility:?[facility] Patient ID:?[id number] Site Patient ID:?[id number]. Site :?[id number] Study:?CT-Facial WITHOUT-01/16/2024 5:10:47 PM Ordering Physician:Jada Schmid Final Report: INDICATION: Fall. Left eye swollen. TECHNIQUE: CT maxillofacial without i.v. contrast. Coronal and sagittal reformats were obtained. COMPARISON: None FINDINGS: Facial bones: No evident acute fractures or aggressive osseous lesions are identified. Specifically the nasal bones, temporomandibular joints, and maxilla appear intact. The mandibular bodies and symphyseal region are outside of the field of view. Orbits and globes: Unremarkable. No evidence of a retrobulbar hemorrhage. Sinuses: Moderate mucosal thickening in the left sphenoid sinus lateral recess with associated sinus wall sclerosis and thickening, indicating chronic inflammation. Soft tissues: [id number] left supra/periorbital soft tissue swelling supraorbital subcutaneous hematoma. IMPRESSION: No acute osseous injuries are identified. Left periorbital soft tissue swelling/hematoma with an unremarkable appearance of the left orbit. Please note that all CT scans at this facility use dose modulation, iterative reconstruction, and/or weight-based dosing when appropriate to reduce radiation dose to as low as reasonably achievable. Dictated by Keshawn Soto MD @ 01/16/2024 6:08:30 PM (Electronic Signature) CT cervical spine: Attestation: I have reviewed the pertinent imaging results. Radiologist's impression: Patient: LEO NICHOLAS Facility:?[facility] Patient ID:?[id number] Site Patient ID:?[id number]. Site :?1955 Study:?CT-Spine Cervical -01/16/2024 5:11:20 PM Ordering Physician:Jada Schmid Final Report: INDICATION: Fall. TECHNIQUE: CT cervical spine without contrast. COMPARISON: None. FINDINGS: There is [id number] motion degradation at the level of the skull base-C2, limiting fine detail evaluation and decreasing sensitivity for the detection of nondisplaced fractures. Vertebrae: Postsurgical changes of prior C5-7 ACDF. Hardware appears intact. No acute traumatic subluxation. There are no evident acute fractures or suspicious bony lesions. Discs and facet joints: There are diffuse degenerative changes in the disc spaces and facet joints. Extraspinal findings: Paraspinous soft tissues are unremarkable. Retropharyngeal courses of the carotid arteries IMPRESSION: 1. No sign of acute injury within the limitations detailed above. 2. Multilevel degenerative spondylosis. Please note that all CT scans at this facility use dose modulation, iterative reconstruction, and/or weight-based dosing when appropriate to reduce radiation dose to as low as reasonably achievable. Dictated by Keshawn Soto MD @ 01/16/2024 6:00:04 PM (Electronic Signature) ECG Data Attestation: I personally reviewed and interpreted this ECG as follows: (Normal sinus rhythm, 81 beats per minute. Q wave in lead 3 but no other inferior EKG changes noted.) ECG interpretation date: 01/16/24 ECG interpretation time: 17:29 Prior ECG tracings: available for review Discharge Plan Discharge Clinical Impression: Increased ammonia level Fall Qualifiers: Encounter type: initial encounter Qualified Code(s): W19.XXXA - Unspecified fall, initial encounter Traumatic hematoma of face Qualifiers: Encounter type: initial encounter Qualified Code(s): S00.83XA - Contusion of other part of head, initial encounter Alcohol intoxication Qualifiers: Complication of substance-induced condition: uncomplicated Qualified Code(s): F10.920 - Alcohol use, unspecified with intoxication, uncomplicated Patient Disposition: Home, Self-Care Condition: Improved Instructions: Fall Prevention for Older Adults (ED), Alcohol Use Disorder (ED), Facial Contusion (ED) Additional Instructions: You need to quit drinking. I am concerned about your ammonia level being elevated, needs to be rechecked within the next couple weeks. You should use ice to your left face to help decrease swelling. Can use low-dose Tylenol, 500 mg up to 4 times a day but you should not go over 2000 mg in a 24 hour due to your liver issues. Recommend follow-up with your primary care provider with in the next week. Activity Level: Activity as Tolerated Prescriptions: No Action phenytoin sodium extended 100 mg capsule 100 mg PO BID@,14 ropinirole 0.5 mg tablet 1.5 mg PO HS metoprolol tartrate 50 mg tablet 50 mg PO BID phenytoin sodium extended [Dilantin Extended] 100 mg capsule 200 mg PO HS citalopram 40 mg tablet 40 mg PO DAILY clopidogrel 75 mg tablet 75 mg PO Q48H sumatriptan succinate 100 mg tablet 100 mg PO BID PRN (Reason: migraine) cyanocobalamin (vitamin B-12) 1,000 mcg tablet 1,000 mcg PO DAILY omeprazole 20 mg capsule,delayed release(DR/EC) 20 mg PO QAM mirtazapine 45 mg tablet 45 mg PO QPM folic acid 1 mg tablet 1 mg PO DAILY pregabalin 300 mg capsule 300 mg PO BID Neupro 2 mg/24 hour patch 24 hour 1 patch topical DAILY Belsomra 20 mg tablet 20 mg PO HS aspirin 81 mg tablet,chewable 81 mg PO DAILY calcium carbonate [Antacid (calcium carbonate)] 200 mg calcium (500 mg) tablet,chewable 200 mg PO QID PRN multivitamin Tablet 1 tab PO DAILY nicotine (polacrilex) 4 mg lozenge 4 mg buccal Q1-2H PRN Rx Instructions: do not exceed more than 20 jesica per day cholecalciferol (vitamin D3) [Vitamin D3] 50 mcg (2,000 unit) capsule 50 mcg PO DAILY Follow Up/Referrals: Neelima Shukla DO [Primary Care Provider] - Stand Alone Forms: [facility] Info Instructions
[2024-01-16 17:00] LABS: Amphetamine Screen Urine Negative (Negative); Barbiturate Screen Urine POSITIVE (Negative); Benzodiazepines Screen Urine Negative (Negative); Cannabinoid Screen Urine Negative (Negative); Cocaine Screen Urine Negative (Negative); Methadone Screen Urine Negative (Negative); Methamphetamines Screen Urine Negative (Negative); Opiate Screen Urine Negative (Negative); Oxycodone Screen Urine Negative (Negative); Phencyclidine Screen Urine Negative (Negative); Tricyclic Antidepressant Urine Negative (Negative)
[2024-01-16 17:27] LABS: PCR FLU A Negative PCR FLU A (Negative); PCR FLU B Negative PCR FLU B (Negative); PCR RSV Negative PCR RSV (Negative); SARS PCR* Negative SARS-CoV-2 (Negative)
[2024-01-16 17:38] LABS: Lactate* 2.3 mmol/L (0.5-1.9)
[2024-01-16 17:42] LABS: Basophils Absolute Auto 0.08 K/uL (0.00-0.30); Basophils Percent Auto 0.8 % (0.0-3.0); Eosinophils Absolute Auto 0.29 K/uL (0.00-0.50); Eosinophils Percent Auto 3.1 % (0.0-7.0); Hematocrit 34.9 % (33.0-51.0); Hemoglobin* 10.9 gm/dL (12.0-16.0); Immature Granulocytes Abs Auto 0.02 K/uL (0.00-0.30); Immature Granulocytes Pct Auto 0.2 %; Lymphocytes Absolute Auto 1.89 K/uL (0.90-2.90); Mean Corpuscular HGB Conc 31 gm/dL (32-36); Mean Corpuscular Hemoglobin 23 pg (26-34); Mean Corpuscular Volume 74 fL (80-100); Monocytes Percent Auto 9.3 % (0.0-11.0); Neutrophils Absolute Auto 6.27 K/uL (1.7-7.0); Neutrophils Percent Auto 66.6 % (42.0-72.0); Platelet Count* 269 K/uL (140-440); RDW Coefficient of Variation % 18.6 % (11.5-15.5); Red Blood Count 4.69 m/uL (4.00-5.20); White Blood Count* 9.43 K/uL (4.50-11.00)
--- OUTSIDE RECORDS SUMMARY | 2024-01-16 17:44 | XMS_ITS | Clinical Summary ---
Author Organization [place] Address [address] [place] [address]. [place] [address] Care Team Providers Care Editing Computer Publisher Name Role Phone Brayden Du MD Unavailable Davonte Juan APRN RN MEDICATION Primary Care Pr ovider Maya Alfaro MD Unavailable [phone] Kelsy Matthews Unavailable + (Fgs), [facility] nior Apts Asst Living Unavailable Davonte Juan APRN RN MEDICATION Unavailable Allergies Active Allergy Reactions Criticality Noted [...] on dilantin and sees neurology at [facility] History of migraine 09/19/2012 Resolved Problems Problem Noted Date Diagnosed Date Resolved Date Polysubstance abuse 09/04/2013 07/25/19 15 Alcohol abuse, episodic drinking behavior 08/30/2013 07/24/2014 Health [facility] 09/19/2012 09/12/2023 Overview: State Tier Level: Tier 1 Status: N/A Basket Grader: N/A See Letters for [facility] Care Plan Adjustment disorder with mix ed anxiety and depressed mood 09/19/2012 04/07/2016 Overview: Dxed at 20 y0 Encounters Date Type Department Care Team Description 01/16/[address] [address] Isma Michel RN Fall 01/06/2024 7:30 AM CDT Assisted Living Visit [address] [address] Davonte Juan APRN CNP Fall, initial encounter (Primary Dx); Intertrigo; Hypertension, unspecified type 01/06/2024 Travel 01/03/[address] [address] Ritu Dennis RN Patient Request 12/27/2023 Telephone [facility] [address] [place] [address] Davonte Juan APRN CNP Prior Auth - Medication ( hydrOXYzine HCl (ATARAX) 25 MG tablet ) 12/23/2023 7:00 AM CDT Assisted Living Visit [address] [address] Davonte Juan APRN CNP Decreased responsiveness (Primary Dx); Major depressive disorder, recurrent episode, moderate (H); Lymphedema 12/23/2023 Travel 12/20/[address] [address] Davonte Juan APRN CNP Prior Auth - Medication (hydrOXYzine HCl (ATARAX) 25 MG tablet) 12/13/[address] [address] Davonte Juan APRN CNP 12/06/2023 8:30 AM CDT Assisted Living Visit [address] [address] Davonte Juan APRN CNP Lymphedema (Primary Dx); Hypertension, unspecified type; Primary insomnia 12/06/2023 Travel 12/02/[address] [address] Davonte Juan APRN CNP 12/01/2023 Orders Only [address] [address] Davonte Juan APRN CNP DIAGNOSIS NOT YET DEFINED (Primary Dx) 11/23/[address] [address] Katie Chicas RN Dysuria 11/18/2023 8:30 AM CDT Assisted Living Visit [address] [address] Davonte Juan APRN CNP Left hemiparesis (H) (Primary Dx); Lymphedema; Dermatitis 11/18/2023 Travel 11/17/[address] [address] Ritu Dennis, RN Refill Request 11/17/[address] [address] Riut Dennis, RN Refill Request 11/15/2023 8:00 AM CDT Assisted Living Visit [facility] [address] [place] [phone] Davonte Juan APRN CNP Hypertension, unspecified type (Primary Dx); Lymphedema; Left hemiparesis (H); Chemical dependency (H); Major depressive disorder, recurrent episode, moderate (H); Seizure disorder (H); Idiopathic postprandial hypoglycemia; ACP (advance care planning) 11/15/2023 Travel 11/15/2023 Documentation Only [address] [address] Kelsy Matthews Geriatrics Tracker from Last 3 [...] Sex Assigned at Female 02/28/2021 1:24 PM STUDENT TEACHER Gender Identity Female 02/28/2021 1:23 PM STUDENT TEACHER Sexual Orientation Straight 02/28/2021 1: 20 PM STUDENT TEACHER Last Filed Vital Signs Vital Sign Reading [...] this topic Medical Devices Implanted Type Area Central Office Equipment Engineer Device Identifier Shelf Expiration Date Model / Serial / Lot Imp Scr Syn Lcp Dist 2.7x12mm Self Tap Ss 202.212 - [id number] Implanted:Qty: 1 on 10/24/2020 by Quentin Pritchett MD at [facility] Metallic Hardware/An chor Left: Ankle SYNTHES-STRATEC 202.212 / / [id number] Imp Scr Syn Lcp Dist 2.7x14mm Self Tap Ss 202.214 - [id number] Implanted:Qty: 1 on 10/24/2020 by Quentin Pritchett MD at [facility] Metallic Hardware/An chor Left: Ankle SYNTHES-STRATEC 202.214 / / [id number] Imp Scr Syn Lcp Dist 2.7x16mm Self Tap Ss 202.216 - [id number] Implanted:Qty: 3 on 10/24/2020 by Quentin Pritchett MD at [facility] Metallic Hardware/An chor Left: Ankle SYNTHES-STRATEC 202.216 / / [id number] Imp Scr Syn Cortex 2.7x32mm Self Tap Ss 202.832 - [id number] Implanted:Qty: 1 on 10/24/2020 by Quentin Pritchett MD at [facility] Metallic Hardware/An chor Left: Ankle SYNTHES-STRATEC 202.832 / / [id number] L2021 Imp Scr Syn 3.5x12mm Locking W/Stardrive Ss 212.102 - [id number] Implanted:Qty: 2 on 10/24/2020 by Quentin Pritchett MD at [facility] Metallic Hardware/An chor Left: Ankle SYNTHES-STRATEC 212.102 / / [id number] L2021 Imp Scr Syn Cortex 3.5x16mm Self Tap Ss 204.816 - [id number] Implanted:Qty: 1 on 10/24/2020 by Quentin Pritchett MD at [facility] Metallic Hardware/An chor Left: Ankle SYNTHES-STRATEC 204.816 / / [id number] L2021 Imp Scr Syn Cortex 3.5x28mm Self Tap Ss 204.828 - [id number] Implanted:Qty: 1 on 10/24/2020 by Quentin Pritchett MD at [facility] Metallic Hardware/An chor Left: Ankle SYNTHES-STRATEC 204.828 / / [id number] L2021 Imp Scr Syn Cortex 3.5x38mm Self Tap Ss 204.838 - [id number] Implanted:Qty: 1 on 10/24/2020 by Quentin Pritchett MD at [facility] Metallic Hardware/An chor Left: Ankle SYNTHES-STRATEC 204.838 / / [id number] L2021 Imp Scr Syn Can 4.0x40mm Long Thrd Ss 207.740 - [id number] Implanted:Qty: 1 on 10/24/2020 by Quentin Pritchett MD at [facility] Metallic Hardware/An chor Left: Ankle SYNTHES-STRATEC 207.740 / / [id number] L2021 Imp Wire Margarita 0.045x4 78.2020 - [id number] Implanted:Qty: 1 on 10/24/2020 by Quentin Pritchett MD at [facility] Wire Left: Ankle G SOURCE 78.202 / / 4.0mm Ti Locking Screww/T25 Implanted:Qty: 1 on 01/16/2014 by Bayron Can MD at [facility] Left: Humerus SYNTHES 08/27/2019 04.005.4 44S / / [id number] 4.5mm Ti Multiloc Screw 42mm Implanted:Qty: 1 on 01/16/2014 by Bayron Can MD at [facility] Left: Humerus SYNTHES 03/28/2022 04.019.0 42S / / [id number] 4.5mm Ti Mulitloc Screw 38mm Implanted:Qty: 1 on 01/16/2014 by Bayron Can MD at [facility] Left: Humerus SYNTHES 02/25/2022 04.019.0 38S / / [id number] 4.0mm Ti Locking Screw 24mm Implanted:Qty: 1 on 01/16/2014 by Bayron Can MD at [facility] Left: Humerus SYNTHES 08/26/2022 04.005.4 14S / / [id number] 4.0mm Ti Locking Screw 26mm Implanted:Qty: 1 on 01/16/2014 by Bayron Can MD at [facility] Left: Humerus SYNTHES 12/26/2021 04.005.4 16S / / [id number] Multiloc End Cap Implanted:Qty: 1 on 01/16/2014 by Bayron Can MD at [facility] Left: Humerus SYNTHES 11/26/2022 04.019.0 00S / / [id number] 4.5mmti Multiloc Screw 38mm Implanted:Qty: 1 on 01/16/2014 by Bayron Can MD at [facility] Left: Humerus SYNTHES 02/25/2023 04.019.0 38S / / [id number] 3.5mm Lcp Hook Plate Implanted:Qty: 1 on 10/24/2020 by Quentin Pritchett MD at [facility] Left: Ankle SYNTHES 02.113.1 03S / / [id number] 2.7mm/3.5mm Lcp Posterolateral Distal Fibula Plates Implanted:Qty: 1 on 10/24/2020 by Quentin Pritchett MD at [facility] Left: Ankle SYNTHES 02.112.1 09 / / [id number] 21 Procedures Procedure Name Priority Date/Time Associated Diagnosis Comments BASIC METABOLIC PANEL (OUTREACH) Routine 01/09/2024 10:04 AM CDT Edema, unspecified TRIP CHARGE - LAB ONLY Routine 01/09/2024 10:04 AM CDT Edema, unspecified BASIC METABOLIC PANEL NO GLUCOSE (OUTREACH) Routine 01/09/2024 10:04 AM CDT Edema, unspecified GLUCOSE (OUTREACH) Routine 01/09/2024 10 :04 AM CDT Edema, unspecified HEMOGLOBIN Routine 01/09/2024 10:04 AM CDT Edema, unspecified RI CERTIFICATION INSIDE POLISHER PATIENT Routine 12/01/2023 DIAGNOSIS NOT YET DEFINED [...] PANEL (BFP) Routine 02/24/2021 3:3 5 PM STUDENT TEACHER Mixed hyperlipidemia MA DIAGNOSTIC BILATERAL W/ JESSE Routine 12/09/2017 THINPREP PAP RFLX HPV MRNA E6/E7 ([facility]) Routine 03/04/2017 3:13 PM STUDENT TEACHER Encounter for gynecological examination without abnormal finding HEPATITIS C ANTIBODY Routine 04/07/2016 3:32 PM STUDENT TEACHER Need for hepatitis C screening test DRUG ABUSE SCREEN 8 URINE (UR) STAT 01/26/2006 2:35 PM STUDENT TEACHER from Last 3 Months or Most Recently Relevant to Health Maintenance Results * Trip Charge - LAB ONLY (01/09/2024 10:04 AM CDT) Only the most recent of3 resultswithin the time period is included. Other TOPOGRAPHY UNKNOWN / Unknown Billing only / Unknown 01/09/2024 10:04 AM CDT 01/09/2024 2:40 PM CDT Davonte Juan CABLE TELEVISION PROGRAM DIRECTOR RN MEDICATION LAB [place] GE PERFORMABLES [facility] [address] * (ABNORMAL) Basic Metabolic Panel No Glucose [...] 01/09/2024 2:40 PM CDT Davonte Juan LONG RN MEDICATION LAB - BL OOD ORDERABLES [facility] [place] [facility] [address] [facility], [address] [phone] * Glucose (OUTREACH) (01/09/2024 10:04 AM CDT) Only the most recent of2 resultswithin the time period is included. Glucose 89 70 - 99 mg/dL 01/09/2024 7:26 PM CDT U LABORATORY Blood STRUCTURE OF LEFT UPPER LIMB / Unknown Venipuncture / Unknown 01/09/2024 10:04 AM CDT 01/09/2024 2:40 PM CDT Davonte Hassanprudencequan LONG RN MEDICATION LAB - BL OOD ORDERABLES Performing Organization Address City/[facility]/ZIP Co de Phone Number [facility] [place] [facility] [address] [facility], [address] [phone] * (ABNORMAL) Hemoglobin (01/09/2024 10:04 AM CDT) Hemoglobin 10.5(L) 11.7 - 15.7 g/dL 01/09/2024 4:38 PM CDT [facility] LAB[facility] Blood STRUCTURE OF LEFT UPPER LIMB / Unknown Venipuncture / Unknown 01/09/2024 10:04 AM CDT 01/09/2024 2:40 PM CDT Davonte Juan LONG RN MEDICATION LAB - BL OOD ORDERABLES [facility] [place] [facility] [address] [facility], [address] [phone] * CERTIFICATION INSIDE POLISHER PATIENT (12/01/2023) Davonte Juan CABLE TELEVISION PROGRAM DIRECTOR RN MEDICATION SPECIAL REPORTS * (ABNORMAL) UA with Microscopic [...] 11/23/2023 9:59 PM CDT [facility] Specific [place] Urine 1.013 1.003 - 1.035 11/23/2023 9:59 [...] 11/23/2023 6:18 PM CDT Davonte Juan APRN RN MEDICATION LAB - UR INE ORDERABLES [facility] Core Lab [address] [facility], [address] [place] [address] * (ABNORMAL) Urine Culture (11/23/2023 4:00 PM [...] pneumoniae Cefazolin JANICE <=4 ug/mL: Susceptible Comment:Cefazolin [place] C breakpoints are for the treatment of [...] ug/mL: Resistant Klebsiella pneumoniae Trimethoprim/Sulfa methoxazol e JANCIE <=1/19 ug/mL: Susceptible Davonte Juan APRN RN MEDICATION LAB - [place] RESIDENTIAL AIR SEALING TECHNICIAN GENERAL ORDERABLES [facility] IDD [facility]AT[facility] Inf. Diseases Diag. Lab [address] [facility], [address] [place] [phone] * (ABNORMAL) Hemoglobin A1c (11/16/2023 6:18 AM CDT) Hemoglobin A1C 5.8(H) <5.7 % 11/16/2023 12:08 PM CDT [facility] Comment: Normal <5.7% Prediabetes 5.7-6.4% ?? Diabetes 6.5% or higher Note: Adopted from ADA consensus guidelines. Blood STRUCTURE OF RIGHT UPPER LIMB / Unknown Venipuncture / Unknown 11/16/2023 6:18 AM CDT 11/16/2023 8:09 AM CDT Davonte uJan APRN, CNP LAB - BL OOD ORDERABLES Performing Organization Address City/[facility]/ZIP Co de Phone Number [facility] [place] [facility] [address] [facility], [address] [place] [phone] * (ABNORMAL) CBC with platelets (11/16/2023 6:18 AM CDT) Pathologist [facility] WBC Count 7.1 4.0 - 11.0 10e3/uL [...] 11/16/2023 8:09 AM CDT Davonte Juan APRN RN MEDICATION LAB - BL OOD ORDERABLES Performing Organization Address City/[facility]/ZIP Co de Phone Number [facility] Core Lab [address] [facility], [address] * Insulin level (11/10/2023 6:33 AM CDT) Insulin 5.7 2.6 - 24.9 uU/mL 11/10/2023 12:12 PM CDT [facility] Blood STRUCTURE OF LEFT HAND / Unknown Venipuncture / Unknown 11/10/2023 6:33 AM CDT 11/10/2023 9:14 AM CDT Anette Valencia MD LAB - BLOOD ORDERABL ES Performing Organization Address City/[facility]/ZIP Co de Phone Number [facility] Core Lab [address] [facility], [address] * Basic metabolic panel (08/03/2023 7:03 [...] LAB - BLOOD ORDERABL ES [facility] [place] [facility] [address] [facility], [address] [phone] * (ABNORMAL) Lipid Panel (BFP) (02/24/2021 3:35 PM STUDENT TEACHER) Cholesterol 307(A) 0 - 199 mg/dL BFP INTERNAL Triglycerides 369(A) 0 - 149 mg/dL B[facility] INTERNAL HDL Cholesterol 108 40 - 150 mg/dL [facility] INTERNAL LDL Cholesterol Direct 125 0 - 130 mg/dL [facility] INTERNAL Cholesterol/HDL Ratio 3 0 - 5 BFP INTERNAL Blood 02/24/2021 3:35 PM STUDENT TEACHER Alek Jones MD LAB - NON-[facility] BLOOD LABS BFP INTERNAL * MA Diagnostic Bilateral w/Jesse (12/09/2017) MAMMOGRAM Anatomical Region Laterality Modality Breast Bilateral Other Narrative 12/09/2017 [facility] [place] Phone: [phone] * Fax: [phone] [id number] [place] [address] Age: 62 Y Dept No.: [id number] LEO MUELLER : 1955 Chart # Gender: F Req. Phys: Alek Jones MD Clinic MRN: Clinic: [facility] Acc#: [id number] Exam: MAMMOGRAM SCREENING JESSE BILATERAL Exam Date: [...] Signed by: DORA Thank You for choosing [facility] Imaging Page 1 of 1 Patient Reported IMG MAMMOGRAPHY ORDE RABLES * ThinPrep Pap and HPV (mRNA E6/E7){HPV-REFLEX} ([facility]) (03/04/2017 3:13 PM STUDENT TEACHER) Clinical History None given [facility] LMP SEE COMMENT [facility] Comment:OVER 8YRS AGO Last Pap Diagnosis 120,817 Q [facility] Prev Bx Dx NONE GIVEN [facility] Source Cervix [facility] Statement of Adequacy SEE COMMENT [facility] Comment: Satisfactory for evaluation. Endocervical/transformation zone component present. Descriptive Diagnosis SEE COMMENT [facility] Comment:Negative for intraep ithelial lesion or malignancy. Electrical Engineering Draftsperson: SEE COMMENT [facility] Comment: ERP, CT(ASCP) CT Screening location: [address] ??[id number] Cervical swab (specimen) 03/04/2017 3:13 PM STUDENT TEACHER 03/05/2017 2:58 AM STUDENT TEACHER Narrative Resulting Agency Comment Performing Organization Information: ? [place] ? [facility] ? [address] [place] [phone] ? Lars Calderon M.D. Alek Jones MD LAB - NON-AGUSTIN KER NON-BLOOD Performing Organization Address [facility] de Phone Number [facility] [address] [place] [address] * Hepatits C antibody ([facility]) (04/07/2016 3:32 PM STUDENT TEACHER) HCV Antibody NON-REACTI VE NON-REACTI VE [facility] SIGNAL TO CUT OFF - [facility] 0.03 <1.00 [facility] Blood specimen (specimen) 04/07/2016 3:32 PM STUDENT TEACHER 04/08/2016 3:37 AM STUDENT TEACHER Narrative Resulting Agency Comment Performing Organization Information: ? [place] ? [facility] ? [address] [place] [address] ? Lars Calderon M.D. Alek Jones MD LAB - BLOOD O RDERABLES Performing Organization Address [facility] de Phone Number [facility] [address] [place] [address] * (ABNORMAL) Drug abuse screen 8 urine (UR) (01/26/2006 2:35 PM STUDENT TEACHER) Amphetamine Qual Urine Negative NEG MISYS Ethanol Qual Urine Negative NEG MISYS Opiates Qualitative Urine Positive(A) NEG MISYS PCP Qual Urine Negative NEG MISYS Benzodiazepine Qual Urine Negative NEG MISYS Barbiturates Qual Urine Negative NEG MISYS Cocaine Qual Urine Negative NEG MISYS Cannabinoids Qual Urine Negative NEG MISYS 01/26/2006 2:35 PM STUDENT TEACHER 01/26/2006 2:25 PM STUDENT TEACHER Russell Trinidad MD LAB - URINE ORDERABLES MISYS from Last 3 Months or Most Recently Relevant to Health Maintenance 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 Advance Directives For more information, please contact: [phone] * Full Code (Latest Code Status on File) Date Activated Date Inactivated Comments 10/24/2020 5:35 PM 10/27/2020 6:15 PM All basic and advanced life-sustaining interventions are performed as appropriate Question Answer Comments Code status determined by: Discussion with adenike gongora/ legal decision maker * Full Code Date Activated Date Inactivated Comments 07/08/2015 3:13 PM 10/24/2020 10:14 AM * Full Code Date Activated Date Inactivated Comments 07/30/2014 8:35 PM 08/02/2014 6:38 PM * Full Code Date Activated Date Inactivated Comments 01/16/2014 5:45 PM 01/17/2014 4:33 PM Care Teams Editing Computer Publisher Relationship Specialty Start Date End Date Davonte Juan APRN RN MEDICATION [facility] [place] [address] PCP - General Family Medicine 11/15/23 Brayden Du MD [address] [place] [id number] [address] Neurology 05/06/22 Maya Alfaro MD [address] [place] [address] Internal Medicine 11/15/23 Kelsy Matthews [address] [place] [id number] Geriatric Services Exhaust Worker 11/15/23 (Fgs), [facility] Senior [facility] Living [address] [place] [phone] 11/15/23 Davonte Juan APRN RN MEDICATION [address] [place] [address] Assigned PCP 11/18/23
--- OUTSIDE RECORDS SUMMARY | 2024-01-16 17:44 | XMS_ITS | Clinical Summary ---
Author Organization [facility] Address [place], [place] [address] Care Team Providers Care Waistband Setter Name Role Phone Neelima Shukla DO Primary Care Provider [phone] Allergies Active Allergy Reactions Criticality Noted Date [...] Motorized Wheelchair. Length of need: 99 months. [place] [id number] Each 04/15/2022 Active omeprazole (PRILOSEC) 20 mg [...] status migrainosus 03/08/2003 Overview (05/27/2021): LW Onset: [id number] ; Migraine Without Aura Resolved Problems Problem [...] Department Care Team Description 11/12/2023 Nurse Triage [facility] [address] [place] [address] Anette Valencia MD Concerns 11/12/2023 Nurse Triage [facility] [address] [place] [address] Chanda Enriquez NP Fall 11/10/2023 Orders Only [facility] Scanner 1 scan: (1-Ord) [facility], INSULIN, 11/10/2023 11/10/2023 Nurse Triage [facility] [address] [place] [address] Anette Valencia MD Results 11/09/2023 11:15 AM CDT [address] [address] Anette Valencia MD Transitional Care Visit (Follow-up & TCU Discharge Summary) 11/09/2023 Orders Only [address] [address] Anette Valencia MD <No scans attached> 11/08/2023 Nurse Triage [address] [address] Anette Valencia MD Rash 11/02/2023 Orders Only [address] [address] Anette Valencia MD <No scans attached> 11/02/2023 Nurse Triage [address] [address] Chanda Enriquez NP Medication Management 11/01/2023 9:00 AM T [address] [address] Chanda Enriquez NP Transitional Care Visit (Follow up); Concerns (RLE - lingering rash, hydrocortisone lotion improved itchy symptoms but rash remains) 10/31/2023 Nurse Triage [address] [address] Chanda Enriquez NP Concerns 10/27/2023 9:30 AM T [address] [address] Chanda Enriquez NP Transitional Care Visit (VAT HOUSE SUPERVISOR follow up) 10/27/2023 Travel 10/21/2023 Nurse Triage [address] [address] Chanda Enriquez NP Weight (3.4 lb weight gain) 10/18/2023 10:00 AM T [address] [address] Chanda Enriquez NP Transitional Care Visit (VAT HOUSE SUPERVISOR follow up ) 10/18/2023 Refill [place] [address] [place] [address] Nguyen Hernadez, ADRIANA Error-please disregard 10/18/2023 Travel 10/17/2023 Nurse Triage [address] [address] Chanda Enriquez, ADRIANA Medication Management 10/16/2023 Nurse Triage [address] [address] Mirian Bryant, ADRIANA Abnormal Lab Results from [...] Date Last Done Comments Fecal testing sDNA-FIT (Natchez guard) for age 45-75 2002 Mammogram for [...] TO QUANT PCR Routine 05/13/2022 3:36 PM SOFTWARE QUALITY TESTER Need for hepatitis C screening test CT CHEST ABDOMEN PELVIS W Routine 10/14/2021 1:13 PM CDT from Last 3 Months or Most Recently Relevant to Health Maintenance Results * SCAN-LABORATORY REPORT (11/10/2023 12:00 AM CDT) Scanner OTHER * (ABNORMAL) LIPID PANEL (07/09/2023 4:43 PM CDT) CHOLESTEROL,TOTAL 147 100 - 199 mg/dL 07/09/2023 7:43 PM CDT [facility] Comment: Cholesterol, Total Reference Ranges Desirable <200 mg/dL Borderline 200-239 mg/dL High >=240 mg/dL TRIGLYCERIDES 139 <150 mg/dL 07/09/2023 7:43 PM CDT [facility] HDL CHOLESTEROL 17(L) >40 mg/dL 7:43 PM CDT [facility] NON-HDL CHOLESTEROL 130 <145 mg/dl 07/09/2023 7:43 PM CDT [facility] CHOL/HDL RATIO 8.65(H) <4.50 07/09/2023 7:43 PM CDT [facility] LDL CHOLESTEROL 102 <=130 mg/dL 07/09/2023 7:43 PM CDT [facility] VLDL CHOLESTEROL 28 <=30 mg/dL 07/09/2023 7:43 PM CDT [facility] Blood BLOOD SPECIMEN / Unknown Non-Lab Venipuncture / Unknown 07/09/2023 4:43 PM CDT 07/09/2023 4:54 PM CDT Bennie TRACY CHEMISTRY [facility] [address] [place] [address], * LC HCV ANTIBODY RFX TO QUANT PCR (05/13/2022 3:36 PM SOFTWARE QUALITY TESTER) HCV Ab Non Reactive Non Reactive 05/15/2022 10:06 PM SOFTWARE QUALITY TESTER [facility] Blood BLOOD SPECIMEN / Unknown Venipuncture / Unknown 05/13/2022 3:36 PM SOFTWARE QUALITY TESTER 05/13/2022 3:36 PM SOFTWARE QUALITY TESTER Narrative [facility]) - 05/15/2022 10:06 PM SOFTWARE QUALITY TESTER Performed at: ??01 - [facility] [address] [place], [place] ??[id number] Assistant Manager Retail: Ramses Stanford MD, Phone: ??[phone] Neelima Sue Gayla [facility]) [facility] [place] [address], * CT CHEST ABDOMEN PELVIS W (10/14/2021 [...] EXAM: CT CHEST ABDOMEN PELVIS W LOCATION: [facility] MEDICAL IMAGING DATE/TIME: 10/14/2021 1:13 PM [...] EXAM: CT CHEST ABDOMEN PELVIS W LOCATION: [facility] MEDICAL IMAGING DATE/TIME: 10/14/2021 1:13 PM [...] Code Status Discussion: Reviewed Preferences Care Teams Waistband Setter Relationship Specialty [place] [address] [place] [address] PCP - General Family Practice 02/22/22
--- OUTSIDE RECORDS SUMMARY | 2024-01-16 17:45 | XMS_ITS | Encounter Summary ---
Author Organization [facility] Address [address] [place] [address]. [place] [address] Care Team Providers Care Paperboard Boxes Estimator Name Role Phone Brayden Du MD Unavailable Davonte Juan APRN DRYWALL FINISHING FOREMAN Primary Care Pr ovider Maya Alfaro MD Unavailable [phone] Kelsy Matthews Unavailable + (Fgs), [facility] shanta Apts Asst Living Unavailable Davonte Juan APRN DRYWALL FINISHING FOREMAN Unavailable Reason for Visit * Reason Onset Date Comments Fall 01/16/2024 Encounter Details Date Type Department Care Team (Late st Contact Info) Description 01/16/2024 Telephone [facility] [address] [place] [address] Isma Michel, FILIPPO Fall Social History Tobacco Use Types Packs/Day Years [...] Sex Assigned at Female 02/28/2021 1:24 PM DISASTER DIRECTOR Gender Identity Female 02/28/2021 1:23 PM DISASTER DIRECTOR Sexual Orientation Straight 02/28/2021 1: 20 PM DISASTER DIRECTOR documented as of this encounter Miscellaneous Notes * Telephone Encounter - Isma Michel RN - 01/16/2024 5:27 PM CDT Nurse called to report that patient had another fall today. This afternoon, patient fell off the toilet and hit her face on the metal grab bar and the floor. She resisted staff from keeping her on the floor for assessment and got herself into her motorized scooter. Nurse states there was a large hematoma on the forehead into the eye. Of note, patient was very intoxicated. Paramedics were called and patient was taken to the ER for evaluation. Primary ELECTRONICS INSTRUCTOR updated. 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 Assessment Noted Time PHQ-9 Depression Total Score: 9 02/18/20 7:30 AM DISASTER DIRECTOR documented as of this encounter Care Teams Paperboard Boxes Estimator Relationship Specialty Start Date End Date Davonte Juan APRN DRYWALL FINISHING FOREMAN [address] [place] [address] PCP - General Family Medicine 11/15/23 Brayden Du MD [address] [place] [address] [id number] [place] [address] Neurology 05/06/22 Maya Alfaro MD [address] [place] [address] Internal Medicine 11/15/23 Kelsy Matthews [address] [place] [address] Geriatric Services Lottery Sales Clerk 11/15/23 (Fgs), [facility] [address] [place] [phone] 11/15/23 Davonte Juan APRN DRYWALL FINISHING FOREMAN [address] [place] [address] Assigned PCP 11/18/23 documented as of this encounter
--- OUTSIDE RECORDS SUMMARY | 2024-01-16 17:45 | XMS_ITS | Encounter Summary ---
Author Organization [facility] Address [address] [place] [address]. [place] [address] Care Team Providers Care Dramatic Arts Historian Name Role Phone Brayden Du MD Unavailable Davonte Juan APRN PRIVATE PILOT Primary Care Pr ovider Maya Alfaro MD Unavailable [phone] Kelsy Matthews Unavailable + (Fgs), [facility] shanta Apts Asst Living Unavailable Davonte Juan APRN PRIVATE PILOT Unavailable Encounter Details Date Type Department Care [...] Sex Assigned at Female 02/28/2021 1:24 PM CNA CAREGIVER Gender Identity Female 02/28/2021 1:23 PM CNA CAREGIVER Sexual Orientation Straight 02/28/2021 1: 20 PM CNA CAREGIVER documented as of this encounter Plan of Treatment Not on file documented as of this encounter Visit Diagnoses Not on filedocumented in this encounter Additional Health Concerns 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 Assessment Noted Time PHQ-9 Depression Total Score: 9 02/18/20 21 7:30 AM CNA CAREGIVER documented as of this encounter Care Teams Dramatic Arts Historian Relationship Specialty Start Date End Date Davonte Juan APRN PRIVATE PILOT [address] [place] [address] PCP - General Family Medicine 11/15/23 Brayden Du MD [address] [place] [address] [address] Neurology 05/06/22 Maya Alfaro MD [address] [place] [address] Internal Medicine 11/15/23 Kelsy Matthews [address] [place] [address] Geriatric Services Drywall Stripper Helper 11/15/23 (Fgs), [facility] Senior [facility] [address] [place] [address] 11/15/23 Davonte Juan APRN PRIVATE PILOT [address] [place] [address] Assigned PCP 11/18/23 documented as of this encounter
--- OUTSIDE RECORDS SUMMARY | 2024-01-16 17:45 | XMS_ITS | Encounter Summary ---
Author Organization [facility] Address [address] [place] [address]. [place] [address] Care Team Providers Care Health Promoter Name Role Phone Brayden Du MD Unavailable Davonte Juan APRN MOLD SPRAYER Primary Care Pr ovider Maya Alfaro MD Unavailable [phone] Kelsy Matthews Unavailable + (Fgs), [facility] shanta Apts Asst Living Unavailable Davonte Juan APRN MOLD SPRAYER Unavailable Reason for Visit * Reason Onset Date Comments Prior Auth - Medication 12/27/2023 hydrOXYz ine HCl (ATARAX) 25 MG tablet Encounter Details Date Type Department Care Team (Late st Contact Info) Description 12/27/2023 Telephone [facility] [address] [place] [phone] Davonte Juan APRN [address] [address] Prior Auth - Medication ( hydrOXYzine HCl [...] Sex Assigned at Female 02/28/2021 1:24 PM BLEACH LIQUOR MAKER Gender Identity Female 02/28/2021 1:23 PM BLEACH LIQUOR MAKER Sexual Orientation Straight 02/28/2021 1: 20 PM BLEACH LIQUOR MAKER documented as of this encounter Miscellaneous Notes * Telephone Encounter - Nury Alexander - 12/27/2023 2:01 PM CDT Images from the original note were not included. Prior Authorization Approval Authorization Effective Date: 09/28/2023 Authorization Expiration Date: 12/26/2024 Medication: hydrOXYzine HCl (ATARAX) 25 MG tablet Reference #: Insurance Company: [employer] [place] - Which Pharmacy is filling the prescription (Not needed for infusion/clinic administered): [facility] - [address] Pharmacy Notified: Yes Patient Notified: Instructed pharmacy to notify patient when script is ready to roll picker/ship. * Telephone Encounter - Nury Alexander - 12/27/2023 11:12 AM CDT Images from the original note were not included. 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 Assessment Noted Time PHQ-9 Depression Total Score: 9 02/18/20 21 7:30 AM BLEACH LIQUOR MAKER documented as of this encounter Care Teams Health Promoter Relationship Specialty Start Date End Date Davonte Juan APRN MOLD SPRAYER [address] [place] [address] PCP - General Family Medicine 11/15/23 Brayden Du MD [address] [place] [address] [address] Neurology 05/06/22 [place] [address] [place] [address] Internal Medicine 11/15/23 Kelsy Matthews [address] [place] [address] Geriatric Services Bobbin Painter 11/15/23 (Fgs), [facility] Senior [facility] [address] [place] [address] 11/15/23 Davonte Juan APRN MOLD SPRAYER [address] [place] [address] Assigned PCP 11/18/23 documented as of this encounter
--- OUTSIDE RECORDS SUMMARY | 2024-01-16 17:45 | XMS_ITS | Encounter Summary ---
Author Organization [facility] Address [address] [place] [address]. [place] [address] Care Team Providers Care Protein Specialist Name Role Phone Brayden Du MD Unavailable Davonte Juan APRN GUITAR MAKER Primary Care Pr ovider Maya Alfaro MD Unavailable [phone] Kelsy Matthews Unavailable + (Fgs), [facility] shanta Apts Asst Living Unavailable Davonte Juan APRN GUITAR MAKER Unavailable Encounter Details Date Type Department Care [...] Sex Assigned at Female 02/28/2021 1:24 PM MUSIC TYPOGRAPHER Gender Identity Female 02/28/2021 1:23 PM MUSIC TYPOGRAPHER Sexual Orientation Straight 02/28/2021 1: 20 PM MUSIC TYPOGRAPHER documented as of this encounter Plan of Treatment Not on file documented as of this encounter Visit Diagnoses Not on filedocumented in this encounter Additional Health Concerns 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 Assessment Noted Time PHQ-9 Depression Total Score: 9 02/18/20 21 7:30 AM MUSIC TYPOGRAPHER documented as of this encounter Care Teams Protein Specialist Relationship Specialty Start Date End Date Davonte Juan APRN GUITAR MAKER [address] [place] [address] PCP - General Family Medicine 11/15/23 Brayden Du MD [address] [place] [address] Neurology 05/06/22 Maya Alfaro MD [address] [place] [address] Internal Medicine 11/15/23 Kelsy Matthews [address] [place] [address] Geriatric Services Lens Edge Grinder Machine 11/15/23 (Fgs), [facility] Senior [facility] [address] [place] [address] 11/15/23 Davonte Juan APRN GUITAR MAKER [address] [place] [address] Assigned PCP 11/18/23 documented as of this encounter
--- OUTSIDE RECORDS SUMMARY | 2024-01-16 17:45 | XMS_ITS | Encounter Summary ---
Author Organization [facility] Address [address] [place] [address]. [place] [address] Care Team Providers Care Ultrasound Spec Name Role Phone Brayden Du MD Unavailable Davonte Juan APRN MOCCASIN SEWER Primary Care Pr ovider Maya Alfaro MD Unavailable [phone] Kelsy Matthews Unavailable + (Fgs), [facility] shanta Apts Asst Living Unavailable Davonte Juan APRN MOCCASIN SEWER Unavailable Reason for Visit * Reason Onset Date Comments Patient Request 01/03/2024 Encounter Details Date Type Department Care Team (Late st Contact Info) Description 01/03/2024 Telephone [facility] [address] [place] [address] Ritu Dennis, RN Patient Request Social History [...] Sex Assigned at Female 02/28/2021 1:24 PM HOTEL FRONT DESK CLERK Gender Identity Female 02/28/2021 1:23 PM HOTEL FRONT DESK CLERK Sexual Orientation Straight 02/28/2021 1: 20 PM HOTEL FRONT DESK CLERK documented as of this encounter Miscellaneous Notes * Telephone Encounter - Ritu Dennis RN - 01/03/2024 3:31 PM CDT [facility] Triage Nurse Telephone Encounter Provider: Davonte Juan APRN CNP Facility: [facility] Type: AL Caller: Luz Call Back Number: [phone] Allergies: Allergies Allergen Reactions Darvon-N [Propoxyphene Napsylate] [...] Total Score: 9 02/18/20 21 7:30 AM HOTEL FRONT DESK CLERK documented as of this encounter Care Teams Ultrasound Spec Relationship Specialty Start Date End Date Davonte Juan APRN CNP [address] [place] [address] PCP - General Family Medicine 11/15/23 Brayden Du MD [address] [place] [address] [place] [address] Neurology 05/06/22 Maya Alfaro MD [address] [place] [address] Internal Medicine 11/15/23 Kelsy Matthews [address] [place] [address] Geriatric Services Cinder Man 11/15/23 (Fgs), [facility] Senior [facility] [address] [place] [phone] 11/15/23 Davonte Juan APRN MOCCASIN SEWER [address] [place] [address] Assigned PCP 11/18/23 documented as of this encounter
--- OUTSIDE RECORDS SUMMARY | 2024-01-16 17:45 | XMS_ITS | Encounter Summary ---
Author Organization [facility] Address [address] [place] [address]. [place] [address] Care Team Providers Care Supervisor Tan Room Name Role Phone Brayden Du MD Unavailable Alexa Simon PA-C Unavailable [phone] Davonte Juan APRN [facility] Primary Care Pr ovider Maya Alfaro MD Unavailable [phone] Kelsy Matthews Unavailable (Fgs), [facility] Apts Asst Living Unavailable Reason for Visit * Reason Onset Date Comments Refill Request 11/17/2023 Encounter Details Date Type Department Care Team (Late st Contact Info) Description 11/17/2023 Refill [facility] [address] [place] [phone] Ritu Dennis, RN Refill Request Social History [...] Sex Assigned at Female 02/28/2021 1:24 PM MARKET RISK MANAGER Gender Identity Female 02/28/2021 1:23 PM MARKET RISK MANAGER Sexual Orientation Straight 02/28/2021 1: 20 PM MARKET RISK MANAGER documented as of this encounter Plan of Treatment Not on file documented as of this encounter Visit Diagnoses Diagnosis Chronic pain disorder- Primary Chronic pain syndrome documented in this encounter Additional Health Concerns 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 Assessment Noted Time PHQ-9 Depression Total Score: 9 02/18/20 21 7:30 AM MARKET RISK MANAGER documented as of this encounter Care Teams Supervisor Tan Room Relationship Specialty Start Date End Date Davonte Juan APRN PURCHASE ANALYST [address] [place] [address] PCP - General Family Medicine 11/15/23 Brayden Du MD [address] [place] [address] [address] Neurology 05/06/22 Alexa Simon PA-C [facility] [address] [address] [place] [address] Assigned PCP 07/19/23 11/17/23 Maya Alfaro MD [address] [place] [address] Internal Medicine 11/15/23 Kelsy Matthews [address] [place] [address] Geriatric Services Obstetrician/Gynecologist 11/15/23 (Fgs), [facility] [address] [place] [phone] 11/15/23 documented as of this encounter
--- OUTSIDE RECORDS SUMMARY | 2024-01-16 17:45 | XMS_ITS | Referral Summary ---
Author Organization [facility] Address [address] [place] [address]. [place] [address] Care Team Providers Care Wheel Assembler Name Role Phone Brayden Du MD Unavailable Davonte Juan APRN, CNP Primary Care Pr ovider Maya Alfaro MD Unavailable [phone] Kelsy Matthews Unavailable + (Fgs), [facility] lucme Apts Asst Living Unavailable Davonte Juan APRN, CNP Unavailable Encounters Date Type Department Care Team Description 01/16/2024 Telephone [facility] [address] [place] [address] [phone] Isma Michel RN Fall 01/06/2024 Travel 01/06/2024 7:30 AM CDT Assisted Living Visit [facility] [address] [place] [address] [phone] Davonte Juan APRN CNP Fall, initial encounter (Primary Dx); Intertrigo; Hypertension, unspecified type 01/03/2024 Telephone [facility] [address] [place] [address] [phone] Ritu Dennis RN Patient Request 12/27/2023 Telephone [facility] [address] [place] [address] [phone] Davonte Juan APRN CNP Prior Auth - Medication ( hydrOXYzine HCl (ATARAX) 25 MG tablet ) 12/23/2023 Travel 12/23/2023 7:00 AM CDT Assisted Living Visit [address] [address] Davonte Juan APRN CNP Decreased responsiveness (Primary Dx); Major depressive disorder, recurrent episode, moderate (H); Lymphedema 12/20/[address] [address] Davonte Juan APRN CNP Prior Auth - Medication (hydrOXYzine HCl (ATARAX) 25 MG tablet) 12/13/[address] [address] Davonte Juan APRN CNP 12/06/2023 Travel 12/06/2023 8:30 AM CDT Assisted Living Visit [address] [address] Davonte Juan APRN CNP Lymphedema (Primary Dx); Hypertension, unspecified type; Primary insomnia 12/02/[address] [address] Davonte Juan APRN CNP 12/01/2023 Orders Only [address] [address] Davonte Juan APRN CNP DIAGNOSIS NOT YET DEFINED (Primary Dx) 11/23/[address] [phone] Katie Chicas RN Dysuria 11/18/2023 Travel 11/18/2023 8:30 AM CDT Assisted Living Visit [address] [address] Davonte Juan APRN CNP Left hemiparesis (H) (Primary Dx); Lymphedema; Dermatitis 11/17/[address] [address] Ritu Dennis, RN Refill Request 11/17/[address] [address] Ritu Dennis RN Refill Request 11/15/2023 Travel 11/15/2023 Documentation Only [address] [address] Kelsy Matthews Geriatrics Tracker 11/15/2023 8:00 AM CDT Assisted Living Visit [address] [address] Davonte Juan APRN CNP Hypertension, unspecified type [...] Pt on dilantin and sees neurology at [facility] History of migraine 09/19/2012 Resolved Problems Problem Noted Date Diagnosed Date Resolved Date Polysubstance abuse 09/04/2013 07/25/19 15 Alcohol abuse, episodic drinking behavior 08/30/2013 07/24/2014 Health Jail 09/19/2012 09/12/2023 Overview: State Tier Level: Tier 1 Status: N/A Telephone Technician: N/A See Letters for [facility] Care Plan Adjustment disorder with mix ed [...] Assigned at Female 02/28/2021 1:24 PM PRODUCTION LEAD Gender Identity Female 02/28/2021 1:23 PM PRODUCTION LEAD Sexual Orientation Straight 02/28/2021 1: 20 PM PRODUCTION LEAD Last Filed Vital Signs Vital Sign Reading [...] on file Medical Devices Implanted Type Area Hose Cementer Device Identifier Shelf Expiration Date Model / Serial / Lot Imp Scr Syn Lcp Dist 2.7x12mm Self Tap Ss 202.212 - [id number] Implanted:Qty: 1 on 10/24/2020 by Quentin Pritchett MD at [facility] Metallic Hardware/An chor Left: Ankle SYNTHES-STRATEC 202. 8002 [id number] Imp Scr Syn Lcp Dist 2.7x14mm Self Tap Ss 202.214 - [id number] Implanted:Qty: 1 on 10/24/2020 by Quentin Pritchett MD at [facility] Metallic Hardware/An chor Left: Ankle SYNTHES-STRATEC 202. / / [id number] Imp Scr Syn Lcp Dist 2.7x16mm Self Tap Ss 202.216 - [id number] Implanted:Qty: 3 on 10/24/2020 by Quentin Pritchett MD at [facility] Metallic Hardware/An chor Left: Ankle SYNTHES-STRATEC 202.216 / / [id number] Imp Scr Syn Cortex 2.7x32mm Self Tap Ss 202.832 - [id number] Implanted:Qty: 1 on 10/24/2020 by Quentin Pritchett MD at [facility] Metallic Hardware/An chor Left: Ankle SYNTHES-STRATEC 202.832 / / [id number] L2021 Imp Scr Syn 3.5x12mm Locking W/Stardrive Ss 212.102 - [id number] Implanted:Qty: 2 on 10/24/2020 by Quentin Pritchett MD at [facility] Metallic Hardware/An chor Left: Ankle SYNTHES-STRATEC 212.102 / / [id number] L2021 Imp Scr Syn Cortex 3.5x16mm Self Tap Ss 204.816 - [id number] Implanted:Qty: 1 on 10/24/2020 by Quentin Pritchett MD at [facility] Metallic Hardware/An chor Left: Ankle SYNTHES-STRATEC 204.816 / / [id number] L2021 Imp Scr Syn Cortex 3.5x28mm Self Tap Ss 204.828 - [id number] Implanted:Qty: 1 on 10/24/2020 by Quentin Pritchett MD at [facility] Metallic Hardware/An chor Left: Ankle SYNTHES-STRATEC 204.828 / / [id number] L2021 Imp Scr Syn Cortex 3.5x38mm Self Tap Ss 204.838 - [id number] Implanted:Qty: 1 on 10/24/2020 by Quentin Pritchett MD at [facility] Metallic Hardware/An chor Left: Ankle SYNTHES-STRATEC 204.838 / / [id number] L2021 Imp Scr Syn Can 4.0x40mm Long Thrd Ss 207.740 - [id number] Implanted:Qty: 1 on 10/24/2020 by Quentin Pritchett MD at [facility] Metallic Hardware/An chor Left: Ankle SYNTHES-STRATEC 207.740 / / [id number] L2021 Imp Wire Margarita 0.045x4 78.2019 - [id number] Implanted:Qty: 1 on 10/24/2020 by Quentin Pritchett MD at [facility] Wire Left: Ankle G SOURCE 78.202 / / 4.0mm Ti Locking Screww/T25 Implanted:Qty: 1 on 01/16/2014 by Bayron Can MD at [facility] Left: Humerus SYNTHES 08/27/2019 04.005.4 44S / / [id number] 4.5mm Ti Multiloc Screw 42mm Implanted:Qty: 1 on 01/16/2014 by Bayron Can MD at [facility] Left: Humerus SYNTHES 03/28/2022 04.019.0 42S / / [id number] 4.5mm Ti Mulitloc Screw 38mm Implanted:Qty: 1 on 01/16/2014 by Bayron Can MD at [facility] Left: Humerus SYNTHES 02/25/2022 04.019.0 38S / / [id number] 4.0mm Ti Locking Screw 24mm Implanted:Qty: 1 on 01/16/2014 by Bayron Can MD at [facility] Left: Humerus SYNTHES 08/26/2022 04.005.4 14S / / [id number] 4.0mm Ti Locking Screw 26mm Implanted:Qty: 1 on 01/16/2014 by Bayron Can MD at [facility] Left: Humerus SYNTHES 12/26/2021 04.005.4 16S / / [id number] Multiloc End Cap Implanted:Qty: 1 on 01/16/2014 by Bayron Can MD at [facility] Left: Humerus SYNTHES 11/26/2022 04.019.0 00S / / [id number] 4.5mmti Multiloc Screw 38mm Implanted:Qty: 1 on 01/16/2014 by Bayron Can MD at [facility] Left: Humerus SYNTHES 02/25/2023 04.019.0 38S / / [id number] 3.5mm Lcp Hook Plate Implanted:Qty: 1 on 10/24/2020 by Quentin Pritchett MD at [facility] Left: Ankle SYNTHES 02.113.1 8001 [id number] 2.7mm/3.5mm Lcp Posterolateral Distal Fibula Plates Implanted:Qty: 1 on 10/24/2020 by Quentin Pritchett MD at [facility] Left: Ankle SYNTHES 02.112.1 8001 [id number] Procedures Procedure Name Priority Date/Time Associated Diagnosis Comments BASIC METABOLIC PANEL (OUTREACH) Routine 01/09/2024 10:04 AM CDT Edema, unspecified TRIP CHARGE - LAB ONLY Routine 01/09/2024 10:04 AM CDT Edema, unspecified BASIC METABOLIC PANEL NO GLUCOSE (OUTREACH) Routine 01/09/2024 10:04 AM CDT Edema, unspecified GLUCOSE (OUTREACH) Routine 01/09/2024 10 :04 AM CDT Edema, unspecified HEMOGLOBIN Routine 01/09/2024 10:04 AM CDT Edema, unspecified [place] CERTIFICATION SCREEN PRINTING MACHINE LOADER UNLOADER PATIENT Routine 12/01/2023 DIAGNOSIS NOT YET DEFINED [...] PANEL (BFP) Routine 02/24/2021 3:3 5 PM PRODUCTION LEAD Mixed hyperlipidemia MA DIAGNOSTIC BILATERAL W/ JESSE Routine 12/09/2017 THINPREP PAP RFLX HPV MRNA E6/E7 (QUEST) Routine 03/04/2017 3:13 PM PRODUCTION LEAD Encounter for gynecological examination without abnormal finding HEPATITIS C ANTIBODY Routine 04/07/2016 3:32 PM PRODUCTION LEAD Need for hepatitis C screening test DRUG ABUSE SCREEN 8 URINE (UR) STAT 01/26/2006 2:35 PM PRODUCTION LEAD from Last 3 Months or Most Recently Relevant to Health Maintenance Results * Trip Charge - LAB ONLY (01/09/2024 10:04 AM CDT) Only the most recent of3 resultswithin the time period is included. Other TOPOGRAPHY UNKNOWN / Unknown Billing only / Unknown 01/09/2024 10:04 AM CDT 01/09/2024 2:40 PM CDT Davonte Juan APRN COMMERCIAL ESTIMATOR LAB [facility] [address] [address], [facility] * (ABNORMAL) Basic Metabolic Panel No Glucose [...] 01/09/2024 2:40 PM CDT Davonte Juan APRN COMMERCIAL ESTIMATOR LAB - BL OOD ORDERABLES [facility] [place] [facility] [address] [facility] [place], [address] [place] [address], [facility] * Glucose (OUTREACH) (01/09/2024 10:04 AM CDT) Only the most recent of2 resultswithin the time period is included. Glucose 89 70 - 99 mg/dL 01/09/2024 7:26 PM CDT [facility] Blood STRUCTURE OF LEFT UPPER LIMB / Unknown Venipuncture / Unknown 01/09/2024 10:04 AM CDT 01/09/2024 2:40 PM CDT Davonte Juan [facility] LAB - BL OOD ORDERABLES [facility] [address] [facility] [place], [address] [place] [address] * (ABNORMAL) Hemoglobin (01/09/2024 10:04 AM CDT) Hemoglobin 10.5(L) 11.7 - 15.7 g/dL 01/09/2024 4:38 PM CDT [facility] Blood STRUCTURE OF LEFT UPPER LIMB / Unknown Venipuncture / Unknown 01/09/2024 10:04 AM CDT 01/09/2024 2:40 PM CDT Davonte Hassanprudencequan [facility] LAB - BL OOD ORDERABLES [facility] [address] [facility] [place], [address] [address] * CERTIFICATION SCREEN PRINTING MACHINE LOADER UNLOADER PATIENT (12/01/2023) Davonte Hassanprudencequan [facility] SPECIAL REPORTS * (ABNORMAL) UA with [...] 11/23/2023 9:59 PM CDT [facility] Specific [place] Urine 1.013 1.003 - 1.035 11/23/2023 9:59 [...] CDT 11/23/2023 6:18 PM CDT Davonte Juan GRANITE SANDBLASTER APPRENTICE COMMERCIAL ESTIMATOR LAB - UR INE ORDERABLES [facility] [address] [facility] [address], [address] [place] [address], [facility] * (ABNORMAL) Urine Culture (11/23/2023 4:00 [...] pneumoniae Cefazolin JANICE <=4 ug/mL: Susceptible Comment:Cefazolin SD C breakpoints are for the treatment of [...] e JANICE <=1/19 ug/mL: Susceptible Davonte Juan GRANITE SANDBLASTER APPRENTICE COMMERCIAL ESTIMATOR LAB - [facility] GENERAL ORDERABLES [facility] Inf. Diseases Diag. Lab [address] [facility], [address] [place] [address] * (ABNORMAL) Hemoglobin A1c (11/16/2023 6:18 AM CDT) Hemoglobin A1C 5.8(H) <5.7 % 11/16/2023 12:08 PM CDT [facility] Comment: Normal <5.7% Prediabetes 5.7-6.4% ?? Diabetes 6.5% or higher Note: Adopted from ADA consensus guidelines. Blood STRUCTURE OF RIGHT UPPER LIMB / Unknown Venipuncture / Unknown 11/16/2023 6:18 AM CDT 11/16/2023 8:09 AM CDT Davonte Juan APRN COMMERCIAL ESTIMATOR LAB - BL OOD ORDERABLES [facility] [place] [facility] [address] [facility] [place], [address] [address] * (ABNORMAL) CBC with platelets (11/16/2023 6:18 AM CDT) [facility] WBC Count 7.1 4.0 - 11.0 [...] 11/16/2023 8:09 AM CDT Davonte Juan APRN COMMERCIAL ESTIMATOR LAB - BL OOD ORDERABLES [facility] [place] [facility] [address] [facility] [place], [address] * Insulin level (11/10/2023 6:33 AM CDT) [facility] Insulin 5.7 2.6 - 24.9 uU/mL 11/10/2023 12:12 PM CDT [facility] Blood STRUCTURE OF LEFT HAND / Unknown Venipuncture / Unknown 11/10/2023 6:33 AM CDT 11/10/2023 9:14 AM CDT Anette Valencia MD LAB - BLOOD ORDERABL ES [facility] [place] [facility] [address] [facility] [place], [address] [phone] * Basic metabolic panel (08/03/2023 7:03 AM CDT) [facility] Sodium 142 135 - 145 mmol/L 08/03/2023 [...] LAB - BLOOD ORDERABL ES [facility] [place] [facility] [address] [facility] [place], [address] [phone] * (ABNORMAL) Lipid Panel (BFP) (02/24/2021 3:35 PM PRODUCTION LEAD) Cholesterol 307(A) 0 - 199 mg/dL B[facility] INTERNAL Triglycerides 369(A) 0 - 149 mg/dL [facility] INTERNAL HDL Cholesterol 108 40 - 150 mg/dL [facility] INTERNAL LDL Cholesterol Direct 125 0 - 130 mg/dL [facility] INTERNAL Cholesterol/HDL Ratio 3 0 - 5 B[facility] INTERNAL Blood 02/24/2021 3:35 PM PRODUCTION LEAD Alek Jones MD LAB - NON-AGUSTIN [facility] BLOOD LABS BFP INTERNAL * MA Diagnostic Bilateral w/Jesse (12/09/2017) MAMMOGRAM Anatomical Region Laterality Modality Breast Bilateral Other Narrative 12/09/2017 [facility] Phone: [phone] * Fax: [phone] [address] Age: 62 Y Dept No.: [id number] LEO MUELLER : 1955 Chart # Gender: F Req. Phys: Alek Jones MD Clinic MRN: Clinic: [facility] Acc#: [id number] Exam: MAMMOGRAM SCREENING JESSE BILATERAL Exam Date: [...] Signed by: DORA Thank You for choosing [facility] Imaging Page 1 of 1 Patient Reported IMG MAMMOGRAPHY ORDE ALAN * ThinPrep Pap and HPV (mRNA E6/E7){HPV-REFLEX} ([facility]) (03/04/2017 3:13 PM PRODUCTION LEAD) Clinical History None given [facility] LMP SEE COMMENT [facility] [place] Comment:OVER 8YRS AGO Last Pap Diagnosis 120,817 Q [facility] [place] Prev Bx Dx NONE GIVEN [facility] [place] Source Cervix [facility] [place] Statement of Adequacy SEE COMMENT [facility] Comment: Satisfactory for evaluation. Endocervical/transformation zone component present. Descriptive Diagnosis SEE COMMENT [facility] Comment:Negative for intraep ithelial lesion or malignancy. Planning And Analysis Manager: SEE COMMENT [facility] [place] Comment: ERP, CT(ASCP) CT Screening location: [address] ??[id number] Cervical swab (specimen) 03/04/2017 3:13 PM PRODUCTION LEAD 03/05/2017 2:58 AM PRODUCTION LEAD Narrative Resulting Agency Comment Performing Organization Information: ? [place] ? [facility] [facility] ? [address] [place] [address] ? Lars Calderon M.D. Alek Jones MD LAB - NON-AGUSTIN KER NON-BLOOD Performing Organization Address [facility] Co de Phone Number [facility] [address] [place] [address] * Hepatits C antibody ([facility]) (04/07/2016 3:32 PM PRODUCTION LEAD) HCV Antibody NON-REACTI VE NON-REACTI VE [facility] SIGNAL TO CUT OFF - [facility] 0.03 <1.00 [facility] Blood specimen (specimen) 04/07/2016 3:32 PM PRODUCTION LEAD 04/08/2016 3:37 AM PRODUCTION LEAD Narrative Resulting Agency Comment Performing Organization Information: ? [place] ? [facility] ? [address] [place] [address] ? Lars Calderon M.D. Alek Jones MD LAB - BLOOD O RDERABLES Performing Organization Address [facility] Co de Phone Number [facility] [address] [place] [address] * (ABNORMAL) Drug abuse screen 8 urine (UR) (01/26/2006 2:35 PM PRODUCTION LEAD) Amphetamine Qual Urine Negative NEG MISYS Ethanol Qual Urine Negative NEG MISYS Opiates Qualitative Urine Positive(A) NEG MISYS PCP Qual Urine Negative NEG MISYS Benzodiazepine Qual Urine Negative NEG MISYS Barbiturates Qual Urine Negative NEG MISYS Cocaine Qual Urine Negative NEG MISYS Cannabinoids Qual Urine Negative NEG MISYS 01/26/2006 2:35 PM PRODUCTION LEAD 01/26/2006 2:25 PM PRODUCTION LEAD Russell Trinidad MD LAB - URINE ORDERABLES Performing Organization Address City/State/[place] Co de Phone Number MISYS from Last 3 Months or Most Recently Relevant to Health Maintenance 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 Advance Directives For more information, please contact: [phone] * Full Code (Latest Code Status on [...] 5:45 PM 01/17/2014 4:33 PM Care Teams Wheel Assembler Relationship Specialty Start Date End Date Davonte Juan APRN COMMERCIAL ESTIMATOR [address] [place] [address] PCP - General Family Medicine 11/15/23 Brayden Du MD [address] [place] [id number] [address] Neurology 05/06/22 [place] [address] [place] [address] Internal Medicine 11/15/23 Kelsy Matthews [address] [place] [address] Geriatric Services Seed Tester 11/15/23 (Fgs), [facility] Senior Apts Asst Living [address] [place] [phone] 11/15/23 Davonte Juan APRN COMMERCIAL ESTIMATOR [address] [place] [address] Assigned PCP 11/18/23
--- OUTSIDE RECORDS SUMMARY | 2024-01-16 17:45 | XMS_ITS | Encounter Summary ---
Author Organization [facility] Address [address] [place] [address] Care Team Providers Care Vacuum Forming Machine Operator Name Role Phone Brayden Du MD Unavailable Davonte Juan APRN SCIENTIFIC AIDE Primary Care Pr ovider Maya Alfaro MD Unavailable [phone] Kelsy Matthews Unavailable + (Fgs), [facility] shanta Apts Asst Living Unavailable Davonte Juan APRN SCIENTIFIC AIDE Unavailable Reason for Visit * Reason Comments Fatigue Encounter Details Date Type Department Care Team (Late st Contact Info) Description 11/18/2023 8:30 AM CDT Assisted Living Visit [facility] [address] [place] [phone] Davonte Juan APRN CNP [address] [place] [address] Left hemiparesis (H) (Primary Dx); Lymphedema; Dermatitis [...] Sex Assigned at Female 02/28/2021 1:24 PM USER EXPERIENCE DESIGNER Gender Identity Female 02/28/2021 1:23 PM USER EXPERIENCE DESIGNER Sexual Orientation Straight 02/28/2021 1: 20 PM USER EXPERIENCE DESIGNER documented as of this encounter Last Filed [...] encounter Progress Notes * Davonte Juan APRN SCIENTIFIC AIDE - 11/18/2023 8:30 AM CDT Images from the original note were not included. [facility] Service where encounter took [facility] ([facility]) [[id number]] Chief Complaint Patient presents with Fatigue HPI: Sultana Mueller is a 68 year old (1955), who is being seen today for an episodic care visit. HPI information obtained from: facility chart records, facility staff, patient report, and [facility] chart review. Today's concern is: L hemiparesis, lymphedema, dermatitis. S/p CVA 2000. L hemiparesis. Not amb. Does stand/pivot transfer indep. However requires side rail on bed for transfers, repositioning. Requires electric hospital bed for overall height adjustment for transfers. Requires [facility]. Lift chair to assist with transfers due [...] aches, and sleep disturbance, EYES: neg, ENT: [facility], CV: lower extremity edema, RESPIRATORY: dyspnea on [...] and posterior oropharynx normal, moist mucous membranes, [facility] [place] EYES: EOM, conjunctivae, lids, pupils and irises [...] 1. Cont. Compression stockings 2. Elevated Les-order [facility] lift chair/recliner 3. Cont. Lasix 4. Follow [...] on Sultana Mueller: Gender: female : 1955 [id number] [facility] [address] (home) Medical Record: [id number] Social Security Number: [id number] Primary Care Provider: Davonte Juan Insurance: Payor: [facility] [facility] / Plan: [facility] [facility] [facility] MEDICARE ADVANTAGE / Product Type: Medicare / HPI: Sultana Mueller is a 68 year old (1955), who is being seen today for a face to face provider visit at [facility]; medical necessity statement for DME included. [...] Dermatitis Orders: 1. Facility staff/TC to contact [employer] company to get their order form for provider to fill out ELECTRONICALLY SIGNED BY ED CERTIFIED PROVIDER: Davonte Juan APRN CNP [facility] [address] [place] [address] documented in this encounter Plan of Treatment [...] Total Score: 9 02/18/20 21 7:30 AM USER EXPERIENCE DESIGNER documented as of this encounter Care Teams Vacuum Forming Machine Operator Relationship Specialty Start Date End Date Davonte Juan APRN SCIENTIFIC AIDE [address] [place] [address] PCP - General Family Medicine 11/15/23 Brayden Du MD [address] [place] [address] [id number] [place] [address] Neurology 05/06/22 Maya Alfaro MD [address] [place] [address] Internal Medicine 11/15/23 Kelsy Matthews [address] [place] [address] Geriatric Services Contract Graphic Designer 11/15/23 (Fgs), [facility] Senior Apts Asst Living [address] [place] [phone] 11/15/23 Davonte Juan APRN SCIENTIFIC AIDE [address] [place] [address] Assigned PCP 11/18/23 documented as of this encounter
--- OUTSIDE RECORDS SUMMARY | 2024-01-16 17:45 | XMS_ITS | Encounter Summary ---
Author Organization [facility] Address [address] [place] [address]. [place] [address] Care Team Providers Care Rate Clerk Passenger Name Role Phone Brayden Du MD Unavailable Davonte Juan APRN HEALTH SCIENCES MANAGER Primary Care Pr ovider Maya Alfaro MD Unavailable [phone] Kelsy Matthews Unavailable + (Fgs), [facility] shanta Apts Asst Living Unavailable Davonte Juan APRN HEALTH SCIENCES MANAGER Unavailable Encounter Details Date Type Department [...] Sex Assigned at Female 02/28/2021 1:24 PM SAMPLING EXPERT Gender Identity Female 02/28/2021 1:23 PM SAMPLING EXPERT Sexual Orientation Straight 02/28/2021 1: 20 PM SAMPLING EXPERT documented as of this encounter Plan of Treatment Not on file documented as of this encounter Visit Diagnoses Not on filedocumented in this encounter Additional Health Concerns 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 Assessment Noted Time PHQ-9 Depression Total Score: 9 02/18/20 21 7:30 AM SAMPLING EXPERT documented as of this encounter Care Teams Rate Clerk Passenger Relationship Specialty Start Date End Date Davonte Juan APRN HEALTH SCIENCES MANAGER [address] [place] [address] PCP - General Family Medicine 11/15/23 Brayden Du MD [address] [place] [address] [address] Neurology 05/06/22 Maya Alfaro MD [address] [place] [address] Internal Medicine 11/15/23 Kelsy Matthews [address] [place] [address] Geriatric Services Urban Designer 11/15/23 (Fgs), [facility] Senior Apts Asst Living [address] [place] [phone] 11/15/23 Davonte Juan APRN HEALTH SCIENCES MANAGER [address] [place] [address] Assigned PCP 11/18/23 documented as of this encounter
--- OUTSIDE RECORDS SUMMARY | 2024-01-16 17:45 | XMS_ITS | Encounter Summary ---
Author Organization [place] Address [address] [place] [address]. [place] [address] Care Team Providers Care Stamping Mill Tender Name Role Phone Brayden Du MD Unavailable Alexa Simon PA-C Unavailable [phone]- [phone] Davonte Juan APRN [facility] Primary Care Pr ovider Maya Alfaro MD Unavailable [phone] Kelsy Matthews Unavailable (Fgs), [facility] Apts Asst Living Unavailable Reason for Visit * Reason Onset Date Comments Refill Request 11/17/2023 Encounter Details Date Type Department Care Team (Late st Contact Info) Description 11/17/2023 Refill [facility] [address] [place] [phone] Ritu Dennis, RN Refill Request Social History [...] Sex Assigned at Female 02/28/2021 1:24 PM BINDERY HELPER Gender Identity Female 02/28/2021 1:23 PM BINDERY HELPER Sexual Orientation Straight 02/28/2021 1: 20 PM BINDERY HELPER documented as of this encounter Plan of Treatment Not on file documented as of this encounter Visit Diagnoses Diagnosis Chronic pain disorder- Primary Chronic pain syndrome documented in this encounter Additional Health Concerns 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 Assessment Noted Time PHQ-9 Depression Total Score: 9 02/18/20 21 7:30 AM BINDERY HELPER documented as of this encounter Care Teams Stamping Mill Tender Relationship Specialty Start Date End Date Davonte Juan APRN [employer]ROL POLICE SERGEANT [address] [place] [address] PCP - General Family Medicine 11/15/23 Brayden Du MD [address] [place] [address] [address] Neurology 05/06/22 Alexa Simon PA-C [facility] [address] [place] [address] Assigned PCP 07/19/23 11/17/23 Maya Alfaro MD [address] [place] [address] Internal Medicine 11/15/23 Kelsy Matthews [address] [place] [address] Geriatric Services Engagement Lead 11/15/23 (Fgs), [facility] [address] [place] [phone] 11/15/23 documented as of this encounter
--- OUTSIDE RECORDS SUMMARY | 2024-01-16 17:45 | XMS_ITS | Encounter Summary ---
Author Organization [place] Address [address] [place] [address] Care Team Providers Care Handle Bender Name Role Phone Brayden Du MD Unavailable Davonte Juan APRN PLAN REP Primary Care Pr ovider Maya Alfaro MD Unavailable [phone] Kelsy Matthews Unavailable (Fgs), [facility] shanta Apts Asst Living Unavailable Davonte Juan APRN PLAN REP Unavailable Reason for Visit * Reason Comments Fall Encounter Details Date Type Department Care Team (Late st Contact Info) Description 01/06/2024 7:30 AM CDT Assisted Living Visit [facility] [address] [place] [phone] Davonte Juan APRN CNP [address] [place] [address] Fall, initial encounter (Primary Dx); Intertrigo; Hypertension, [...] Sex Assigned at Female 02/28/2021 1:24 PM INTERNATIONAL RECRUITER Gender Identity Female 02/28/2021 1:23 PM INTERNATIONAL RECRUITER Sexual Orientation Straight 02/28/2021 1: 20 PM INTERNATIONAL RECRUITER documented as of this encounter Last Filed [...] encounter Progress Notes * Davonte Juan APRN PLAN REP - 01/06/2024 7:30 AM CDT [facility] [place] [facility] of Service where encounter took place: [facility] ([facility]) [[id number]] Chief Complaint Patient presents with Fall HPI: Sultana Mueller is a 68 year old (1955), who is being seen today for an episodic care visit. HPI information obtained from: facility chart records, facility staff, patient report, and [facility] chart review. Today's concern is: Fall, intertrigo, HTN. S/p fall lat hs. Fell between bed, w.c. while transferring OOB. No apparent inj. Cont. To work with PT. Is getting a bedside pole to assist with transfers. For HTN taking metoprolol. Bps, HR stable. No reports of dizziness. Past Medical and Surgical History reviewed in [facility] today. 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 Assessment Noted Time PHQ-9 Depression Total Score: 9 02/18/20 21 7:30 AM INTERNATIONAL RECRUITER documented as of this encounter Care Teams Handle Bender Relationship Specialty Start Date End Date Davonte Juan APRN CNP [address] [place] [address] PCP - General Family Medicine 11/15/23 Brayden Du MD [address] [place], [place] [address], [place] [address] Neurology 05/06/22 Maya Alfaro MD [address] [place] [address] Internal Medicine 11/15/23 Kelsy Matthews [address] [place] [address] Geriatric Services Metallographer 11/15/23 (Fgs), [facility] Senior Apts Asst Living [address] [place] [phone] 11/15/23 Davonte Juan APRN PLAN REP [address] [place] [address] Assigned PCP 11/18/23 documented as of this encounter
--- OUTSIDE RECORDS SUMMARY | 2024-01-16 17:45 | XMS_ITS | Encounter Summary ---
Author Organization [place] Address [address] [place] [address] Care Team Providers Care Senior Net Developer Name Role Phone Alek Jones MD Primary Care Provide r Alek Jones MD Unavailable [phone] [place](Fgs), [facility] Unavailable Alexa Simon PA-C Unavailable + [phone] Alek Jones MD Unavailable [phone] Neelima Shukla DO Primary Care Provider [phone] Brayden Du MD Unavailable Alexa Simon PA-C Unavailable + [phone] Davonte Juan APRN CABLE MAKER Primary Care Pr ovider Maya Alfaro MD Unavailable [phone] Kelsy Matthews Unavailable + (Fgs), [facility] shanta Apt Asst Living Unavailable Davonte Juan APRN CABLE MAKER Unavailable Encounter Details Date Type Department [...] Sex Assigned at Female 02/28/2021 1:24 PM LEAD MANUFACTURING TECHNICIAN Gender Identity Female 02/28/2021 1:23 PM LEAD MANUFACTURING TECHNICIAN Sexual Orientation Straight 02/28/2021 1: 20 PM LEAD MANUFACTURING TECHNICIAN documented as of this encounter Plan of Treatment Not on file documented as of this encounter Visit Diagnoses Not on filedocumented in this encounter Additional Health Concerns Infection Onset Date Last Indicated Resolved Time 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/07/2020 11/07/2020 11/09/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 Assessment Noted Time PHQ-9 Depression Total Score: 11 021 3:32 PM LEAD MANUFACTURING TECHNICIAN documented as of this encounter Care Teams Senior Net Developer Relationship Specialty Start Date End Date Alek Jones MD [address] [address] PCP - General Family Practice 03/18/16 01/11/22 [place] [address] [place] [address] PCP - General Family Medicine 01/12/22 11/14/23 Davonte Juan APRN CABLE MAKER [address] [place] [address] PCP - General Family Medicine 11/15/23 Alek Jones MD [address] [place] [address] Assigned PCP 06/08/20 02/14/21 Center(Fgs), [place] [id number] [place] [phone] Shelter Facility 10/27/20 11/14/20 Alexa Simon PA-C [address] , [facility] [address] [place] [address] Assigned PCP 02/15/21 02/28/21 Alek Jones MD [address], [address] [address] Assigned PCP 03/01/21 07/18/23 Brayden Du MD [address] [place] [address] [place] [address] MD [place] 05/06/22 Alexa Simon PA-C [address], [address] [address] Assigned PCP 07/19/23 11/17/23 Maya Alfaro MD [address] [place] [address] Internal Medicine 11/15/23 Kelsy Matthews [address] [place] [address] Geriatric Services Filler Room Attendant 11/15/23 (Fgs), [facility] Senior Apts Asst Living [address] [place] [phone] 11/15/23 Davonte Juan APRN CABLE MAKER [address] [place] [address] Assigned PCP 11/18/23 documented as of this encounter
--- OUTSIDE RECORDS SUMMARY | 2024-01-16 17:45 | XMS_ITS | Encounter Summary ---
Author Organization [place] Address [address] [place] [address]. [place] [address] Care Team Providers Care Nail Professional Name Role Phone Brayden Du MD Unavailable Davonte Juan APRN PRECAST CONCRETE PRODUCTS INSTALLER Primary Care Pr ovider Maya Alfaro MD Unavailable [phone] Kelsy Matthews Unavailable + (Fgs), [facility] shanta Apts Asst Living Unavailable Davonte Juan APRN PRECAST CONCRETE PRODUCTS INSTALLER Unavailable Encounter Details Date Type Department Care [...] Sex Assigned at Female 02/28/2021 1:24 PM SHED WORKERS SUPERVISOR Gender Identity Female 02/28/2021 1:23 PM SHED WORKERS SUPERVISOR Sexual Orientation Straight 02/28/2021 1: 20 PM SHED WORKERS SUPERVISOR documented as of this encounter Plan of Treatment Not on file documented as of this encounter Visit Diagnoses Not on filedocumented in this encounter Additional Health Concerns 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 Assessment Noted Time PHQ-9 Depression Total Score: 9 02/18/20 21 7:30 AM SHED WORKERS SUPERVISOR documented as of this encounter Care Teams Nail Professional Relationship Specialty Start Date End Date Davonte Juan APRN PRECAST CONCRETE PRODUCTS INSTALLER [address] [place] [address] PCP - General Family Medicine 11/15/23 Brayden Du MD [address] [place] [address] [address] Neurology 05/06/22 Maya Alfaro MD [address] [place] [address] Internal Medicine 11/15/23 Kelsy Matthews [address] [place] [address] Geriatric Services Laborer Shellfish Processing 11/15/23 (Fgs), [facility] Senior Apts Asst Living [address] [place] [phone] 11/15/23 Davonte Juan APRN PRECAST CONCRETE PRODUCTS INSTALLER [address] [place] [address] Assigned PCP 11/18/23 documented as of this encounter
--- OUTSIDE RECORDS SUMMARY | 2024-01-16 17:45 | XMS_ITS | Encounter Summary ---
Author Organization [place] Address [address] [place] [address]. [place] [address] Care Team Providers Care Desktop Manager Name Role Phone Brayden Du MD Unavailable Davonte Juan APRN PRINCIPLE SOFTWARE ENGINEER Primary Care Pr ovider Maya Alfaro MD Unavailable [phone] Kelsy Matthews Unavailable (Fgs), [facility] Se womack Apts Asst Living Unavailable Davonte Juan APRN PRINCIPLE SOFTWARE ENGINEER Unavailable Reason for Visit * Reason Onset Date Comments Prior Auth - Medication 12/20/2023 hydrOXYz ine HCl (ATARAX) 25 MG tablet Encounter Details Date Type Department Care Team (Late st Contact Info) Description 12/20/2023 Telephone [facility] [address] [place] [phone] Davonte Juan APRN [address] [address] Prior Auth - Medication (hydrOXYzine HCl (ATARAX) [...] Assigned at Female 02/28/2021 1:24 PM ACCOUNT AUDITOR Gender Identity Female 02/28/2021 1:23 PM ACCOUNT AUDITOR Sexual Orientation Straight 02/28/2021 1: 20 PM ACCOUNT AUDITOR documented as of this encounter Miscellaneous Notes [...] Total Score: 9 02/18/20 21 7:30 AM ACCOUNT AUDITOR documented as of this encounter Care Teams Desktop Manager Relationship Specialty Start Date End Date Davonte Juan APRN PRINCIPLE SOFTWARE ENGINEER [address] [place] [address] PCP - General Family Medicine 11/15/23 Brayden Du MD [address] [place], [place] [address] [address] Neurology 05/06/22 Maya Alfaro MD [address] [place] [address] Internal Medicine 11/15/23 Kelsy Matthews [address] [place] [address] Geriatric Services Billing Collections Specialist 11/15/23 (Fgs), [facility] Senior Apts Asst Living [address] [place] [phone] 11/15/23 Davonte Juan APRN PRINCIPLE SOFTWARE ENGINEER [address] [place] [address] Assigned PCP 11/18/23 documented as of this encounter
--- OUTSIDE RECORDS SUMMARY | 2024-01-16 17:45 | XMS_ITS | Encounter Summary ---
Author Organization [place] Address [address] [place] [address] Care Team Providers Care Servicing Manager Name Role Phone Brayden Du MD Unavailable Davonte Juan APRN ENGLISH INSTRUCTOR Primary Care Pr ovider Maya Alfaro MD Unavailable [phone] Kelsy Matthews Unavailable + (Fgs), [place] [facility] Apts Asst Living Unavailable Davonte Juan APRN, CNP Unavailable Encounter Details Date Type Department Care Team (Late st Contact Info) Description 12/02/2023 Telephone [facility] [address] [place] [address] Davonte Juan APRN ENGLISH INSTRUCTOR [address] [place], [place] [phone] Social History Tobacco Use Types Packs/Day Years [...] Sex Assigned at Female 02/28/2021 1:24 PM CONSOLE OPERATOR Gender Identity Female 02/28/2021 1:23 PM CONSOLE OPERATOR Sexual Orientation Straight 02/28/2021 1: 20 PM CONSOLE OPERATOR documented as of this encounter Plan of Treatment Not on file documented as of this encounter Visit Diagnoses Diagnosis Chronic pain disorder Chronic pain syndrome documented in this encounter Additional Health Concerns 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 Assessment Noted Time PHQ-9 Depression Total Score: 9 02/18/20 21 7:30 AM CONSOLE OPERATOR documented as of this encounter Care Teams Servicing Manager Relationship Specialty Start Date End Date Davonte Juan APRN ENGLISH INSTRUCTOR [address] [place] [address] PCP - General Family Medicine 11/15/23 Brayden Du MD [address] [place] [address] Neurology 05/06/22 Maya Alfaro MD [address] [place] [address] Internal Medicine 11/15/23 Kelsy Matthews [address] [place] [address] Geriatric Services Reinsurance Claim Analyst 11/15/23 (Fgs), [facility] Senior Apts Asst Living [address] [place] [phone] 11/15/23 Davonte Juan APRN ENGLISH INSTRUCTOR [address] [place] [address] Assigned PCP 11/18/23 documented as of this encounter
--- OUTSIDE RECORDS SUMMARY | 2024-01-16 17:45 | XMS_ITS | Encounter Summary ---
Author Organization [place] Address [address] [place] [address] Care Team Providers Care Child Care Centre Director Name Role Phone Brayden Du MD Unavailable Davonte Juan APRN BIOLOGY INTERNSHIP Primary Care Pr ovider Maya Alfaro MD Unavailable [phone] Kelsy Matthews Unavailable + (Fgs), [facility] shanta Apts Asst Living Unavailable Davonte Juan APRN BIOLOGY INTERNSHIP Unavailable Reason for Visit * Reason Comments Edema Encounter Details Date Type Department Care Team (Late st Contact Info) Description 12/06/2023 8:30 AM CDT Assisted Living Visit [facility] [address] [place] [phone] Davonte Juan APRN CNP [address] [place] [address] Lymphedema (Primary Dx); Hypertension, unspecified type; Primary [...] Sex Assigned at Female 02/28/2021 1:24 PM AQUATICS LIFEGUARD Gender Identity Female 02/28/2021 1:23 PM AQUATICS LIFEGUARD Sexual Orientation Straight 02/28/2021 1: 20 PM AQUATICS LIFEGUARD documented as of this encounter Last Filed [...] encounter Progress Notes * Davonte Juan, LONG BIOLOGY INTERNSHIP - 12/06/2023 8:30 AM CDT [facility] [place] [facility] where encounter [facility] [[id number]] Chief Complaint Patient presents with Edema HPI: Sultana Mueller is a 68 year old (1955), who is being seen today for an episodic care visit. HPI information obtained from: facility chart records, facility staff, patient report, and [facility] chart review. Today's concern is: Lymphedema, [...] Past Medical and Surgical History reviewed in [facility] today. 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 Assessment Noted Time PHQ-9 Depression Total Score: 9 02/18/20 21 7:30 AM AQUATICS LIFEGUARD documented as of this encounter Care Teams Child Care Centre Director Relationship Specialty Start Date End Date Davonte Juan APRN CNP [facility] [place] [address] PCP - General Family Medicine 11/15/23 Brayden Du MD [address] [place] [address] [id number] [place] [address] Neurology 05/06/22 Maya Alfaro MD [address] [place] [address] Internal Medicine 11/15/23 Kelsy Matthews [address] [place] [address] Geriatric Services On Site Wastewater Systems Technician 11/15/23 (Fgs), [facility] Senior Apts Asst Living [address] [place] [phone] 11/15/23 Davonte Juan APRN BIOLOGY INTERNSHIP [address] [place] [address] Assigned PCP 11/18/23 documented as of this encounter
--- OUTSIDE RECORDS SUMMARY | 2024-01-16 17:45 | XMS_ITS | Encounter Summary ---
Author Organization [place] Address [address] [place] [address] Care Team Providers Care Retail Advertising Account Executive Name Role Phone Brayden Du MD Unavailable Davonte Juan APRN PBX MANAGER Primary Care Pr ovider Maya Alfaro MD Unavailable [phone] Klesy Matthews Unavailable + (Fgs), [place] [facility] shanta Apts Asst Living Unavailable Davonte Juan APRN PBX MANAGER Unavailable Encounter Details Date Type Department Care Team (Late st Contact Info) Description 12/01/2023 [facility] Geriatrics [address] [place] [address] Davonte Juan APRN CNP [address] [place], [place] [phone] DIAGNOSIS NOT YET DEFINED (Primary Dx) Social [...] Sex Assigned at Female 02/28/2021 1:24 PM STOVE FITTER Gender Identity Female 02/28/2021 1:23 PM STOVE FITTER Sexual Orientation Straight 02/28/2021 1: 20 PM STOVE FITTER documented as of this encounter Plan of Treatment Not on file documented as of this encounter Procedures Procedure Name Priority Date/Time Associated Diagnosis Comments [place] MD CERTIFICATION STAND IN PATIENT Routine 12/01/2023 DIAGNOSIS NOT YET DEFINED documented in this encounter Results * MD CERTIFICATION STAND IN PATIENT (12/01/2023) Davonte Juan APRN PBX MANAGER SPECIAL REPORTS documented in this encounter Visit Diagnoses Diagnosis DIAGNOSIS NOT YET DEFINED- Primary documented in this encounter Additional Health Concerns 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 Assessment Noted Time PHQ-9 Depression Total Score: 9 02/18/20 21 7:30 AM STOVE FITTER documented as of this encounter Care Teams Retail Advertising Account Executive Relationship Specialty Start Date End Date Davonte Juan APRN CNP [address] [place] [address] PCP - General Family Medicine 11/15/23 Brayden Du MD [address] [place], [place] [address] [address] Neurology 05/06/22 Maya Alfaro MD [address] [place] [address] Internal Medicine 11/15/23 Kelsy Matthews [address] [place] [address] Geriatric Services Armed Custom Protection Officer 11/15/23 (Fgs), [facility] Senior [facility] Living [address] [place] [address] 11/15/23 Davonte Juan APRN PBX MANAGER [address] [place] [address] Assigned PCP 11/18/23 documented as of this encounter
--- OUTSIDE RECORDS SUMMARY | 2024-01-16 17:45 | XMS_ITS | Encounter Summary ---
Author Organization [place] Address [address] [place] [address] Care Team Providers Care Remote Control Mirror Installer Name Role Phone Brayden Du MD Unavailable Davonte Juan APRN MAKEUP EDITOR Primary Care Pr ovider Maya Alfaro MD Unavailable [phone] Kelsy Matthews Unavailable + (Fgs), [facility] shanta Apts Asst Living Unavailable Davonte Juan APRN, CNP Unavailable Reason for Referral * Mental Health Outpatient (Routine: Next available opening) - Pending Review Specialty Diagnoses / Procedures Referred By Ela galeana Referred To Contact Diagnoses Major depressive disorder, recurrent episode, moderate (H) Davonte Juan APRN MAKEUP EDITOR [address] [place] [address] Referral ID Status Reason Start Date Expiration Date V isits Requested Visits Authorized [id number] Pending Review 12/23/2023 12/22/2024 1 1 Question Answer Services: Psychotherapy/Counseling (non-medication) Reason for Referral: Individual Psychotherapy/Counseling Scheduling Instructions: [facility] will call you to coordinate your care as prescribed by your provider. If you don't hear from a community relations representative within 2 business days, please call [...] plan with any benefit or coverage questions. [facility] will call you to coordinate your care as prescribed by your provider. If you don't hear from a community relations representative within 2 business days, please call . Reason for Visit * Reason Comments Altered Mental Status Encounter Details Date Type Department Care Team (Late st Contact Info) Description 12/23/2023 7:00 AM CDT Assisted Living Visit [facility] Geriatrics [address] [place] [phone] Davonte Juan, LONG MAKEUP EDITOR [facility] [place] [address] Decreased responsiveness (Primary Dx); Major depressive disorder, [...] Sex Assigned at Female 02/28/2021 1:24 PM CAR INSPECTION AND REPAIR MANAGER Gender Identity Female 02/28/2021 1:23 PM CAR INSPECTION AND REPAIR MANAGER Sexual Orientation Straight 02/28/2021 1: 20 PM CAR INSPECTION AND REPAIR MANAGER documented as of this encounter Last Filed [...] encounter Progress Notes * Davonte Juan APRN MAKEUP EDITOR - 12/23/2023 7:00 AM CDT Images from the original note were not included. [facility] [place] [facility] Service where encounter took place: [facility] [[id number]] Chief Complaint Patient presents with Altered Mental [...] reports ongoing s/s. Plan: Adult Mental Health Applications Administrator Referral 1. Cont. Celexa, remeron 2. Monitor [...] on Sultana Mueller: Gender: female : 1955 [id number] [facility] [address] (home) Medical Record: [id number] Social Security Number: [id number] Primary Care Provider: Davonte Juan Insurance: Payor: [facility] / Plan: [facility] MEDICARE ADVANTAGE / Product Type: Medicare / HPI: Sultana Mueller is a 68 year old (1955), who is being seen today for a face to face provider visit at [facility]; medical necessity statement for DME included. This [...] Lymphedema Orders: 1. Facility staff/TC to contact [employer] to get their order form for provider to fill out ELECTRONICALLY SIGNED BY ED CERTIFIED PROVIDER: Davonte Juan APRN CNP [facility] [address] [place] [address] documented in this encounter Plan of Treatment Scheduled Referrals Name Type Priority Associated Diagnoses Orde r Schedule Adult Mental Health Applications Administrator Referral Referral Routine: Next available opening Major [...] Total Score: 9 02/18/20 21 7:30 AM CAR INSPECTION AND REPAIR MANAGER documented as of this encounter Care Teams Remote Control Mirror Installer Relationship Specialty Start Date End Date Davonte Juan APRN CNP [address] [place] [address] PCP - General Family Medicine 11/15/23 Brayden Du MD [address] [facility] [id number] [place] [address] Neurology 05/06/22 Maya Alfaro MD [address] [place] [address] Internal Medicine 11/15/23 Kelsy Matthews [address] [place] [address] Geriatric Services Civil Engineering Professional 11/15/23 (Fgs), [facility] Senior Apts Asst Living [address] [place] [phone] 11/15/23 Davonte Juan APRN MAKEUP EDITOR [address] [place] [address] Assigned PCP 11/18/23 documented as of this encounter
--- OUTSIDE RECORDS SUMMARY | 2024-01-16 17:45 | XMS_ITS | Encounter Summary ---
Author Organization [facility] Address [address] [place] [address] Care Team Providers Care Featheredger And Reducer Machine Name Role Phone Brayden Du MD Unavailable Davonte Juan APRN ELECTRIC GAS APPLIANCES DEMONSTRATOR Primary Care Pr ovider Maya Alfaro MD Unavailable [phone] Kelsy Matthews Unavailable + (Fgs), [facility] Apts Asst Living Unavailable Davonte Juan APRN, CNP Unavailable Encounter Details Date Type Department Care Team (Late st Contact Info) Description 12/13/2023 Telephone [facility] Geriatric[facility] [address] [place] [address] Davonte Juan APRN ELECTRIC GAS APPLIANCES DEMONSTRATOR [address] [place], [place] [phone] Social History Tobacco Use Types Packs/Day Years [...] Sex Assigned at Female 02/28/2021 1:24 PM MANAGER MULTIMEDIA Gender Identity Female 02/28/2021 1:23 PM MANAGER MULTIMEDIA Sexual Orientation Straight 02/28/2021 1: 20 PM MANAGER MULTIMEDIA documented as of this encounter Plan of Treatment Not on file documented as of this encounter Visit Diagnoses Diagnosis Chronic pain disorder Chronic pain syndrome documented in this encounter Additional Health Concerns 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 Assessment Noted Time PHQ-9 Depression Total Score: 9 02/18/20 21 7:30 AM MANAGER MULTIMEDIA documented as of this encounter Care Teams Featheredger And Reducer Machine Relationship Specialty Start Date End Date Davonte Juan APRN ELECTRIC GAS APPLIANCES DEMONSTRATOR [address] [place] [address] PCP - General Family Medicine 11/15/23 Brayden Du MD [address] [place] [address] [address] Neurology 05/06/22 Maya Alfaro MD [address] [place] [address] Internal Medicine 11/15/23 Kelsy Matthews [address] [place] [address] Geriatric Services Rehab Assistant 11/15/23 (Fgs), [facility] Senior Apts Asst Living [address] [place] [phone] 11/15/23 Davonte Juan APRN ELECTRIC GAS APPLIANCES DEMONSTRATOR [address] [place] [address] Assigned PCP 11/18/23 documented as of this encounter
--- OUTSIDE RECORDS SUMMARY | 2024-01-16 17:45 | XMS_ITS | Encounter Summary ---
Author Organization [facility] Address [address] [place] [address]. [place] [address] Care Team Providers Care Drug And Alcohol Counsellor Name Role Phone Brayden Du MD Unavailable Davonte Juan APRN HRIS COORDINATOR Primary Care Pr ovider Maya Alfaro MD Unavailable [phone] Kelsy Matthews Unavailable + (Fgs), [facility] shanta Apts Asst Living Unavailable Davonte Juan APRN HRIS COORDINATOR Unavailable Reason for Visit * Reason Onset Date Comments Dysuria 11/23/2023 Encounter Details Date Type Department Care Team (Late st Contact Info) Description 11/23/2023 Telephone [facility] Geriatrics [address] [place] [address] Katie Chicas, RN Dysuria Social History Tobacco [...] Sex Assigned at Female 02/28/2021 1:24 PM SALES MARKETING COORDINATOR Gender Identity Female 02/28/2021 1:23 PM SALES MARKETING COORDINATOR Sexual Orientation Straight 02/28/2021 1: 20 PM SALES MARKETING COORDINATOR documented as of this encounter Miscellaneous Notes * Telephone Encounter - Katie Chicas RN - 11/23/2023 12:50 PM CDT [facility] Triage Nurse Telephone Encounter Provider: Davonte Juan APRN CNP Facility: [facility] [place] Facility Type: AL Caller: Luz Call Back Number: [phone] Allergies: Allergies Allergen Reactions Darvon-N [Propoxyphene Napsylate] [...] Total Score: 9 02/18/20 21 7:30 AM SALES MARKETING COORDINATOR documented as of this encounter Care Teams Drug And Alcohol Counsellor Relationship Specialty Start Date End Date Davonte Juan APRN CNP [address] [place] [address] PCP - General Family Medicine 11/15/23 Brayden Du MD [address] [place] [address] [id number] [place] [address] Neurology 05/06/22 Maya Alfaro MD [address] [place] [address] Internal Medicine 11/15/23 Kelsy Matthews [address] [place] [address] Geriatric Services Death Surveys Coder 11/15/23 (Fgs), [facility] Senior Apts Asst Living [address] [place] [phone] 11/15/23 Davonte Juan APRN HRIS COORDINATOR [address] [place] [address] Assigned PCP 11/18/23 documented as of this encounter
--- OUTSIDE RECORDS SUMMARY | 2024-01-16 17:45 | XMS_ITS | Encounter Summary ---
Author Organization [facility] Address [address] [place] [address]. [place] [address] Care Team Providers Care Wood Cutter Name Role Phone Brayden Du MD Unavailable Alexa Simon PAJosé MiguelC Unavailable [phone] Davonte Juan APRN [facility] Primary Care Pr ovider Maya Alfaro MD Unavailable [phone] Kelsy Matthews Unavailable (Fgs), [facility] Apts Asst Living Unavailable Encounter Details Date [...] Sex Assigned at Female 02/28/2021 1:24 PM REGIONAL FACILITIES SPECIALIST Gender Identity Female 02/28/2021 1:23 PM REGIONAL FACILITIES SPECIALIST Sexual Orientation Straight 02/28/2021 1: 20 PM REGIONAL FACILITIES SPECIALIST documented as of this encounter Plan of Treatment Not on file documented as of this encounter Visit Diagnoses Not on filedocumented in this encounter Additional Health Concerns 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121CJ [place] [address] Neurology 05/06/22 Alexa Simon PA-C [address] , [address] [place] [address] Assigned PCP 07/19/23 11/17/23 [place] [address] [place] [address] Internal Medicine 11/15/23 Kelsy Matthews [address] [place] [address] Geriatric Services E Commerce Manager 11/15/23 (Fgs), [facility] Senior Apts Asst Living [address] [place] [phone] 11/15/23 documented as of this encounter
--- OUTSIDE RECORDS SUMMARY | 2024-01-16 17:45 | XMS_ITS | Encounter Summary ---
Author Organization [facility] Address [address] [place] [address]. [place] [address] Care Team Providers Care Fancy Wire Drawer Name Role Phone Brayden Du MD Unavailable Alexa Simon PANamrata Unavailable [phone] Davonte Juan APRN [facility] Primary Care Pr ovider Maya Alfaro MD Unavailable [phone] Kelsy Matthews Unavailable (Fgs), [facility] Apts Asst Living Unavailable Reason for Visit * Reason Comments Geriatrics Tracker Encounter Details Date Type Department Care Team (Late st Contact Info) Description 11/15/[address] [facility] Geriatrics [address] [place] [phone] Kelsy Matthews [address] [place] [phone] Geriatrics Tracker Social History Tobacco Use Types [...] Sex Assigned at Female 02/28/2021 1:24 PM CONVEYOR BELT INSTALLER Gender Identity Female 02/28/2021 1:23 PM CONVEYOR BELT INSTALLER Sexual Orientation Straight 02/28/2021 1: 20 PM CONVEYOR BELT INSTALLER documented as of this encounter Plan of Treatment Not on file documented as of this encounter Visit Diagnoses Not on filedocumented in this encounter Additional Health Concerns 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 Assessment Noted Time PHQ-9 Depression Total Score: 9 02/18/20 21 7:30 AM CONVEYOR BELT INSTALLER documented as of this encounter Care Teams Fancy Wire Drawer Relationship Specialty Start Date End Date Davonte Juan APRN CNP [address] [place] [address] PCP - General Family Medicine 11/15/23 Brayden Du MD [address] [facility] [place] [address] Neurology 05/06/22 Alexa Simon PA-C [address] , [address] [place] [address] Assigned PCP 07/19/23 11/17/23 Maya Alfaro MD [address] [place] [address] Internal Medicine 11/15/23 Kelsy Matthews [address] [place] [address] Geriatric Services It Administrative Assistant 11/15/23 (Fgs), [facility] Senior Apts Asst Living [address] [place] [phone] 11/15/23 documented as of this encounter
--- OUTSIDE RECORDS SUMMARY | 2024-01-16 17:45 | XMS_ITS | Encounter Summary ---
Author Organization [facility] Address [address] [place] [address] Care Team Providers Care Carpet Cleaning Technician Name Role Phone Brayden Du MD Unavailable Alexa Simon PA-C Unavailable + [phone] Davonte Juan APRN DETACKER Primary Care Pr ovider Maya Alfaro MD Unavailable [phone] Kelsy Matthews Unavailable (Fgs), [facility] Apts Asst Living Unavailable Reason for Referral * Consultation (Routine: Next available opening) - Pending Review Specialty Diagnoses / Procedures Referred By Ela galeana Referred To Contact Endocrinology, Diabetes, and Metabolism Diagnoses Idiopathic postprandial hypoglycemia Davonte Juan APRN DETACKER [address] [place] [address] Referral ID Status Reason Start Date Expiration Date V isits Requested Visits Authorized [id number] Pending Review 11/15/2023 11/14/2024 1 1 Question Answer Reason for Referral: Other My Clinical Question Is: hypoglycemia Scheduling Instructions: [facility] will call you to coordinate your care as prescribed by the provider. If you don? t hear from a motor vehicle representative within 2 business days, please call [phone]. Additional Information: has BG levels in 50-60s at times, typically following meals. feels shaky, weak with episodes Comments Please be aware that coverage of these services is subject to the terms and limitations of your health insurance plan. Call member services at your health plan with any benefit or coverage questions. [facility] will call you to coordinate your care as prescribed by the provider. If you don? t hear from a motor vehicle representative within 2 business days, please call [phone]. Reason for Visit * Reason Comments Establish Care Encounter Details Date Type Department Care Team (Late st Contact Info) Description 11/15/2023 8:00 AM CDT Assisted Living Visit [facility] Geriatrics [address] [place] [phone] Davonte Juan APRN DETACKER [address] [place] [address] Hypertension, unspecified type (Primary Dx); Lymphedema; Left [...] Sex Assigned at Female 02/28/2021 1:24 PM TRAINING SYSTEMS OFFICER Gender Identity Female 02/28/2021 1:23 PM TRAINING SYSTEMS OFFICER Sexual Orientation Straight 02/28/2021 1: 20 PM TRAINING SYSTEMS OFFICER documented as of this encounter Last Filed [...] APRN CNP - 11/15/2023 8:00 AM CDT [facility] PRIMARY CARE PROVIDER AND CLINIC: Davonte Juan APRN CNP, [address] [facility] [address] Chief Complaint Patient presents with [facility] Place of Service where encounter took place: [facility] ([facility]) [[id number]] Sultana Mueller is a 68 year old (1955), admitted to the above facility from TCU.. Admittedto this facility for rehab, medical management, and nursing care. HPI: HPI information obtained from: facility chart records, facility staff, patient report, and [facility] chart review. Brief Summary of Hospital Course: [...] poor po intake. Updates on Status Since nursing home Admission: mood gen. Stable. Reports headache this [...] and sleep disturbance, EYES: dry eyes, ENT: TELIDA, CV: lower extremity edema, RESPIRATORY: neg, : neg, GI: neg, NEURO: headaches, PSYCH: neg, and MUSCULOSKELETAL: muscular weakness Vitals: BP 108/76 Pulse 90 Resp 16 Ht 1.626 m (5' 4) Wt 81.6 kg (180 lb) LMP (LMP Unknown) SpO2 94% BMI 30.90 kg/m?? Exam: GENERAL APPEARANCE: Alert, in no distress, cooperative ENT: Mouth and posterior oropharynx normal, moist mucous membranes, TELIDA, adequate dentition EYES: EOM, conjunctivae, lids, pupils [...] apparent anxiety Lab/Diagnostic data: Recent labs in [facility] reviewed by me today. ASSESSMENT/PLAN: (I10) Hypertension, [...] H/o variable po intake Plan: Adult Endocrinology Vegetable Washing Machine Operator Referral 2. Every day BG levels alt times (Z71.89) ACP (advance care planning) Comment: full code Plan: 1. POLST in chart Electronically signed by: Davonte Juan APRN DETACKER documented in this encounter Plan of Treatment Scheduled Referrals Name Type Priority Associated Diagnoses Orde r Schedule Adult Endocrinology Vegetable Washing Machine Operator Referral Referral Routine: Next available opening Idiopathic [...] Total Score: 9 02/18/20 21 7:30 AM TRAINING SYSTEMS OFFICER documented as of this encounter Care Teams Carpet Cleaning Technician Relationship Specialty Start Date End Date Davonte Juan APRN CNP [address] [place] [address] PCP - General Family Medicine 11/15/23 Brayden Du MD [address] [facility] [id number] [place] [address] Neurology 05/06/22 Alexa Simon PA-C [address], [address] [place] [address] Assigned PCP 07/19/23 11/17/23 Maya Alfaro MD [address] [place] [address] Internal Medicine 11/15/23 Kelsy Matthews [address] [place] [address] Geriatric Services Capture Manager 11/15/23 (Fgs), [facility] Senior Apts Asst Living [address] [place] [phone] 11/15/23 documented as of this encounter
--- OUTSIDE RECORDS SUMMARY | 2024-01-16 17:46 | XMS_ITS | Encounter Summary ---
Author Organization [facility] Address [address] [address] Phone Care Team Providers Care Paper Tube Cutter Name Role Phone Elsewhere, Pcp Primary Care Provider Unavailabl e Encounter Details Date Type Department Care Team (Latest Contact Info) Description 01/09/2024 Travel Social History Tobacco Use Types Packs/Day Years Used Date Smoking Tobacco: Never Assessed Comments Unknown Sex and Gender Information Value Date Recorded Sex Assigned at Not on file Legal Sex Female 2:56 PM CDT Gender Identity Not on file Sexual Orientation Not on file documented as of this encounter Plan of Treatment Not on file documented as of this encounter Visit Diagnoses Not on filedocumented in this encounter Care Teams Paper Tube Cutter Relationship Specialty Start Date End Date Elsewhere, Pcp PCP - General 01/05/24 documented as of this encounter
--- OUTSIDE RECORDS SUMMARY | 2024-01-16 17:46 | XMS_ITS | Encounter Summary ---
Author Organization [facility] Address [facility] [address] Care Team Providers Care Watch Leader Name Role Phone Rose Pelletier CLINICAL REVIEWER Unavailable [phone] Alek Jones MD Primary Care Provide r Alek Jnoes MD Unavailable [phone] Alek Jones MD Unavailable [phone] Alexa Simon PA-C Unavailable + [phone] Alexa Simon PA-C Unavailable [phone] Alek Jones MD Unavailable [phone] Center(Fgs), [facility] Unavailable Alexa Simon PA-C Unavailable + [phone] Alek Jones MD Unavailable [phone] Neelima Shukla DO Primary Care Provider [phone] Brayden Du MD Unavailable CorningAlexa ornelas PA-C Unavailable + [phone] Davonte Juan APRN BALL MILL MIXER Primary Care Pr ovider + Maya Alfaro MD Unavailable [phone] Kelsy Matthews Unavailable + (Fgs), [facility] shanta Apts Asst Living Unavailable Davonte Juan APRN BALL MILL MIXER Unavailable Encounter Details Date Type Department Care Team (Late st Contact Info) Description 11/10/2016 MyC Medical Advice [facility] Physicians [address] [place] [address] [address] [place] [address] Ana Mueller MA Social History Tobacco Use Types Packs/Day Years Used Date Smoking Tobacco: Former Smokeless Tobacco: Never Alcohol Use Standard Drinks/Week Comments No 0 (1 standard drink = 0.6 oz pur e alcohol) Sex and Gender Information Value Date Recorded Sex Assigned at Female 02/28/2021 1:24 PM OPERATIONS TECHNICIAN Gender Identity Female 02/28/2021 1:23 PM OPERATIONS TECHNICIAN Sexual Orientation Straight 02/28/2021 1: 20 PM OPERATIONS TECHNICIAN documented as of this encounter Plan of Treatment Not on file documented as of this encounter Visit Diagnoses Not on filedocumented in this encounter Additional Health Concerns Infection Onset Date Last Indicated Resolved Time 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/07/2020 11/07/2020 11/09/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 Assessment Noted Time PHQ-9 Depression Total Score: 13 017 7:16 AM OPERATIONS TECHNICIAN documented as of this encounter Care Teams Watch Leader Relationship Specialty Start Date End Date Alek Jones MD [address] , [address] [address] PCP - General Family Practice 03/18/16 01/11/22 [place] [address] [place] [address] PCP - General Family Medicine 01/12/22 11/14/23 Davonte Juan APRN BALL MILL MIXER [address] [place] [address] PCP - General Family Medicine 11/15/23 Rose [place]ier, CAR Gang Mower Operator 09/19/14 07/10/20 Alek Jones MD [address], [address] [address] Assigned PCP 04/08/19 05/24/20 Alek Jones MD [address], [address] [address] Assigned PCP 12/25/17 03/31/19 Alexa Simon PA-C [address], [address] [address] Assigned PCP 04/01/19 04/07/19 Alexa Simon PA-C [address], [address] [address] Assigned PCP 05/25/20 06/07/20 Alek Jones MD [address] , [address] [address] Assigned PCP 06/08/20 02/14/21 Center(Fgs), [address] [phone] Long Term Facility 10/27/20 11/14/20 Alexa Simon PA-C [address] , [address] [address] Assigned PCP 02/15/21 02/28/21 Alek Jones MD [address] , [address] [address] Assigned PCP 03/01/21 07/18/23 Brayden Du MD [address] [facility] [id number] [place] [address] Neurology 05/06/22 Alexa Simon PA-C [address] , [facility] [address] [place] [address] Assigned PCP 07/19/23 11/17/23 [place] [address] [place] [address] Internal Medicine 11/15/23 Kelsy Matthews [address] [place] [address] Geriatric Services Dock Supervisor 11/15/23 (Fgs), [facility] Senior Apts Asst Living [address] [place] [phone] 11/15/23 Davonte Juan APRN BALL MILL MIXER [address] [place] [address] Assigned PCP 11/18/23 documented as of this encounter
--- OUTSIDE RECORDS SUMMARY | 2024-01-16 17:46 | XMS_ITS | Encounter Summary ---
Author Organization [place] Address [address] [place] [address]. [place] [address] Care Team Providers Care Farm Equipment Mechanic Apprentice Name Role Phone Jeramie Sterling MD Primary Care Provider Elodia Rose Oliveira KENO DEALER Unavailable [phone] Estela Dacosta PA-C Primary Care Pro vider Kelley Love MD Primary Care Provider [phone] Alek Jones MD Primary Care Provide r Alek Jones MD Unavailable [phone] Alek Jones MD Unavailable +[phone] Alexa Simon PA-C Unavailable + [phone] Alexa Simon PA-C Unavailable + [phone] Alek Jones MD Unavailable +[phone] [place](Fgs[facility] Unavailable Alexa Simon PA-C Unavailable + [phone] Alek Jones MD Unavailable +[phone] Neleima Shukla DO Primary Care Provider [phone] Brayden Du MD Unavailable Alexa Simon PA-C Unavailable + [phone] Davonte Juan APRN [facility] Primary Care Pr ovider Maya Alfaro MD Unavailable [phone] MatthewsKelsy huerta Unavailable (Fgs), Berta Weber [facility] Unavailable Davonte Juan APRN AUDIO/VIDEO TECHNICIAN Unavailable Reason for Visit * Reason Comments Medication Refill Encounter Details Date Type Department Care Team (Late st Contact Info) Description 09/13/2014 Refill [facility] [address] [place] [address] [place] [phone] Jeramie Sterling MD XXXX RESIGNED/INACTIVE XXXX Medication Refill Social History Tobacco Use Types Packs/Day Years Used Date Smoking Tobacco: Former Smokeless Tobacco: Never Alcohol Use Standard Drinks/Week Comments No 0 (1 standard drink = 0.6 oz pur e alcohol) Sex and Gender Information Value Date Recorded Sex Assigned at Female 02/28/2021 1:24 PM ASSIGNMENT MANAGER Gender Identity Female 02/28/2021 1:23 PM ASSIGNMENT MANAGER Sexual Orientation Straight 02/28/2021 1: 20 PM ASSIGNMENT MANAGER documented as of this encounter Miscellaneous Notes [...] documented as of this encounter Care Teams Farm Equipment Mechanic Apprentice Relationship Specialty Start Date End Date Jeramie Sterling MD PCP - General Family Practice 07/24/14 11/09/15 Estela Dacosta PA-C PCP - General Family Practice 11/10/15 12/17/15 Kelley Loev MD [address] , [address] [address] PCP - General Family Practice 12/18/15 03/17/16 Alek Jones MD [address] [address] [address] PCP - General Family Practice 03/18/16 01/11/22 [place] [address] [place] [address] PCP - General Family Medicine 01/12/22 11/14/23 Davonte Juan APRN CNP [address] [place] [address] PCP - General Family Medicine 11/15/23 Rose Pelletier, [facility] Casino Gaming Inspector 09/19/14 07/10/20 Alek Jones MD [address] [address] [address] Assigned PCP 04/08/19 05/24/20 Alek Jones MD [address] [address] [address] Assigned PCP 12/25/17 03/31/19 Alexa Simon PA-C [address] [address] Assigned PCP 04/01/19 04/07/19 Alexa Simon PA-C [address] [address] Assigned PCP 05/25/20 06/07/20 Alek Jones MD [address] [address] Assigned PCP 06/08/20 02/14/21 [place]), [address] [address] Group Home Facility 10/27/20 11/14/20 Alexa Simon PA-C [address] [address] Assigned PCP 02/15/21 02/28/21 Alek Jones MD [address] [address] Assigned PCP 03/01/21 07/18/23 Brayden Du MD [address] [facility] [id number] [address] MD [place] 05/06/22 Alexa Simon PA-C [address], [address] [place] [address] Assigned PCP 07/19/23 11/17/23 [place] [address] [place] [address] Internal Medicine 11/15/23 Kelsy Matthews [address] [place] [address] Geriatric Services Garland Maker 11/15/23 (Fgs), [facility] Living [address] [place] [phone] 11/15/23 Davonte Juan APRN AUDIO/VIDEO TECHNICIAN [address] [place] [address] Assigned PCP 11/18/23 documented as of this encounter
--- OUTSIDE RECORDS SUMMARY | 2024-01-16 17:46 | XMS_ITS | Clinical Summary ---
Author Organization [facility] Address [address] [address] Phone Care Team Providers Care Slip Injector And Applicator Name Role Phone Elsewhere, Pcp Primary Care Provider Unavailabl e Encounters Date Type Department Care Team Description 01/09/2024 3:00 PM CDT Ancillary Procedure [facility] [address] [facility] [address] [place] [address] Annette Merlos MD Brain aneurysm 01/09/2024 Travel from Last 3 Months Social History Tobacco Use Types Packs/Day Years Used Date Smoking Tobacco: Never Assessed Comments Unknown Sex and Gender Information Value Date Recorded Sex Assigned at Not on file Legal Sex Female 2:56 PM CDT Gender Identity Not on file Sexual Orientation Not on file Plan of Treatment Health Maintenance Due Date Last Done Comments CT Colonography 1957 Cologuard 1957 Colonoscopy 1957 Colorectal Cancer Screening 1957 FIT/FOBT 1957 MAMMO,SCREEN 1957 Sigmoidoscopy 1957 PERTUSSIS (Standing Order) 1976 TETANUS (Standing Order) 1976 Shingrix (Zoster recombinant ) vaccine (Standing Order) (1 of 2) 06/14/2007 RSV Vaccination (60+ yrs) (Abrysvo/Arexvy) (1 - Risk 60-74 years 1-dose series) 2017 DXA,FEMALES AGE 65 OR GREATER 2022 Pneumococcal Vaccine: 65+ yr s (Standing Order) (1 of 1 - PCV) 2022 COVID-19 Vaccine (2023-2 5 season) 2023 Influenza Vaccine Seasonal (Standing Order) (#1) 2023 HPV Vaccine (Standing Order) Aged Out No longer eligible based on patient's age to complete this topic Hepatitis B Vaccine (Standin g Order) Aged Out No longer eligible b ased on patient's age to complete this topic Procedures Procedure Name Priority Date/Time Associated Diagnosis Comments MR ANGIO HEAD WO W CONTRAST Routine 01/09/2024 3:39 PM CDT Brain aneurysm from Last 3 Months Results * MR ANGIO HEAD WO W CONTRAST (01/09/2024 3:39 PM CDT) Anatomical Region Laterality Modality Head Magnetic Resonan ce 01/09/2024 3:49 PM CDT Narrative 01/10/2024 10:03 AM CDT For Patients: ??As a result of the Cures Act, medical imaging exams and procedure reports are released immediately into your electronic medical record. ??You may view this report before your referring provider. ??If you have questions, please contact your health care provider. EXAMINATION: MRA HEAD WITH AND WITHOUT CONTRAST DATE: 01/09/2024. HISTORY: Patient with known brain aneurysms. TECHNIQUE: 3D TOF and contrast-enhanced MRA of the head was performed. COMPARISON: Angiogram 08/04/2023. 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 There are no new aneurysms. The rest of the intracranial vasculature is unremarkable. 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 A follow-up MRA of the head in December 2024, 2 years after treatment, will be obtained. Annette Merlos M.D. Neurointerventional Radiologist [facility] [place] Pager: [phone] Office/Referrals: [phone] [facility] Center: [phone] [email or web address] Dictated by: Annette Merlos MD @ 01/10/2024 10:03:29 Electronically Signed Procedure Note Annette Merlos MD - 10/15/2024 For Patients: As a result of the Century Cures Act, medical imagingexams and procedure reports are released immediately into your electronicmedical record. You may view this report before your referring provider. If youhave questions, please contact your health care provider. EXAMINATION: MRA HEAD WITH AND WITHOUT CONTRAST DATE: 01/09/2024. HISTORY: Patient with known brain aneurysms. TECHNIQUE: 3D TOF and contrast-enhanced MRA of the head was performed. COMPARISON: Angiogram 08/04/2023. FINDINGS: There is continued complete occlusion of the Pipelined left ophthalmic ICAand coiled anterior communicating artery aneurysms. There are no new aneurysms. The rest of the intracranial vasculature is unremarkable. IMPRESSION: Continued complete occlusion of the Pipelined left ophthalmic ICA andcoiled anterior communicating artery aneurysms. A follow-up MRA of the head in December 2024, 2 years after treatment, willbe obtained. Annette Merlos M.D. Neurointerventional Radiologist [facility] [place] Pager: [phone] Office/Referrals: [phone] [facility] Center: [phone] [email or web address] Dictated by: Annette Merlos MD @ 01/10/2024 10:03:29 Electronically Signed Annette Merlos MD EC MRI ORDERABLES Final Resu lt from Last 3 Months Insurance [id number] [place] [address] MEDICAID MEDICAL ASSISTANCE [place] [facility] MEDICARE ADVANTAGE Care Teams Slip Injector And Applicator Relationship Specialty Start Date End Date Elsewhere, Pcp PCP - General 01/05/24
--- OUTSIDE RECORDS SUMMARY | 2024-01-16 17:46 | XMS_ITS | Encounter Summary ---
Author Organization [place] Address [address] [place] [address]. [place] [address] Care Team Providers Care Inspector Packager Name Role Phone Jeramie Sterling MD Primary Care Provider Elodia Rose Oliveira PLANTING MATERIAL REMOVER Unavailable [phone] Estela Dacosta PA-C Primary Care Pro vider Kelley Love MD Primary Care Provider [phone] Alek Jones MD Primary Care Provide r Alek Jones MD Unavailable [phone] Alek Jones MD Unavailable +[phone] Alexa Simon PA-C Unavailable + [phone] Alexa Simon PA-C Unavailable + [phone] Alek Jones MD Unavailable +[phone] [place](Fgs)[facility] Unavailable Alexa Simon PA-C Unavailable + [phone] Alek Jones MD Unavailable [phone] Neelima Shukla DO Primary Care Provider [phone] Brayden Du MD Unavailable Alexa Simon PA-C Unavailable + [phone] Davonte Juan APRN [facility] Primary Care Pr ovider Maya Alfaro MD Unavailable [phone] MatthewsKelsy valentin Unavailable (Fgs), [facility] Living Unavailable Davonte Juan APRN SECRETARIAL STENOGRAPHER Unavailable Reason for Visit * Reason Comments Medication Refill Encounter Details Date Type Department Care Team (Late st Contact Info) Description 10/14/2014 Refill [facility] [address] [phone] Jeramie Sterling MD XXXX RESIGNED/INACTIVE XXXX Medication Refill Social History Tobacco Use Types Packs/Day Years Used Date Smoking Tobacco: Former Smokeless Tobacco: Never Alcohol Use Standard Drinks/Week Comments No 0 (1 standard drink = 0.6 oz pur e alcohol) Sex and Gender Information Value Date Recorded Sex Assigned at Female 02/28/2021 1:24 PM ROD PULLER AND COILER Gender Identity Female 02/28/2021 1:23 PM ROD PULLER AND COILER Sexual Orientation Straight 02/28/2021 1: 20 PM ROD PULLER AND COILER documented as of this encounter Plan of Treatment Not on file documented as of this encounter Visit Diagnoses Not on filedocumented in this encounter Additional Health Concerns Infection Onset Date Last Indicated Resolved Time 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/07/2020 11/07/2020 11/09/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 documented as of this encounter Care Teams Inspector Packager Relationship Specialty Start Date End Date Jeramie Sterling MD PCP - General Family Practice 07/24/14 11/09/15 Estela Dacosta PA-C PCP - General Family Practice 11/10/15 12/17/15 Kelley Love MD [address] , [address] [place] [address] PCP - General Family Practice 12/18/15 03/17/16 Alek Jones MD [address] , [address] [address] PCP - General Family Practice 03/18/16 01/11/22 [place] [address] [place] [address] PCP - General Family Medicine 01/12/22 11/14/23 Davonte Juan APRN [facility] [address] [place] [address] PCP - General Family Medicine 11/15/23 Rose Pelletier, [facility] Contractor Broomcorn Threshing 09/19/14 07/10/20 Alek Jones MD [address] , [address] [address] Assigned PCP 04/08/19 05/24/20 Alek Jones MD [address] [address] [address] Assigned PCP 12/25/17 03/31/19 Alexa Simon PA-C [address] [address] [address] Assigned PCP 04/01/19 04/07/19 Alexa Simon PA-C [address] [address] [address] Assigned PCP 05/25/20 06/07/20 Alek Jones MD [address], [address] [address] Assigned PCP 06/08/20 02/14/21 [place](Fgs), [address] [address] Group Home Facility 10/27/20 11/14/20 Alexa Simon PA-C [address] , [address] [address] Assigned PCP 02/15/21 02/28/21 Alek Jones MD [address] , [address] [address] Assigned PCP 03/01/21 07/18/23 Brayden Du MD [address] [facility] [address] Neurology 05/06/22 Alexa Simon PA-C [address] , [address] [address] Assigned PCP 07/19/23 11/17/23 Maya Alfaro MD [address] [place] [address] Internal Medicine 11/15/23 Kelsy Matthews [address] [place] [address] Geriatric Services Inshore Undersea Warfare Officer 11/15/23 (Fgs), [facility]pts [facility] Living [address] [place] [phone] 11/15/23 Davonte Juan APRN SECRETARIAL STENOGRAPHER [address] [place] [address] Assigned PCP 11/18/23 documented as of this encounter
--- OUTSIDE RECORDS SUMMARY | 2024-01-16 17:46 | XMS_ITS | Encounter Summary ---
Author Organization [place] Address [address] [place] [address]. [place] [address] Care Team Providers Care Odd Job Worker Name Role Phone Jearmie Sterling MD Primary Care Provider Elodia Rose Oliveira PLUG CUTTER Unavailable [phone] Estela Dacosta PA-C Primary Care Pro vider Kelley Love MD Primary Care Provider [phone] Alek Jones MD Primary Care Provide r Alek Jones MD Unavailable [phone] Alek Jones MD Unavailable [phone] Alexa Simon PA-C Unavailable + [phone] Alexa Simon PA-C Unavailable + [phone] Alek Jones MD Unavailable +[phone] [place](Fgs[facility] Unavailable Alexa Simon PA-C Unavailable + [phone] Alek Jones MD Unavailable +[phone] Neelima Shukla DO Primary Care Provider [phone] Brayden Du MD Unavailable Alexa Simon PA-C Unavailable + [phone] Davonte Juan APRN [facility] Primary Care Pr ovider Maya Alfaro MD Unavailable [phone] MatthewsKelsy huerta Unavailable (Fgs), Berta Weber [facility] Unavailable Davonte Juan APRN FREEZER OPERATOR Unavailable Reason for Visit * Reason Comments Medication Refill Encounter Details Date Type Department Care Team (Late st Contact Info) Description 11/12/2014 Refill [facility] [address] [place] [address] [place] [phone] Jeramie Sterling MD XXXX RESIGNED/INACTIVE XXXX Medication Refill Social History Tobacco Use Types Packs/Day Years Used Date Smoking Tobacco: Former Smokeless Tobacco: Never Alcohol Use Standard Drinks/Week Comments No 0 (1 standard drink = 0.6 oz pur e alcohol) Sex and Gender Information Value Date Recorded Sex Assigned at Female 02/28/2021 1:24 PM LIGHTING ENGINEER Gender Identity Female 02/28/2021 1:23 PM LIGHTING ENGINEER Sexual Orientation Straight 02/28/2021 1: 20 PM LIGHTING ENGINEER documented as of this encounter Miscellaneous [...] documented as of this encounter Care Teams Odd Job Worker Relationship Specialty Start Date End Date Jeramie Sterling MD PCP - General Family Practice 07/24/14 11/09/15 Estela Dacosta PA-C PCP - General Family Practice 11/10/15 12/17/15 Kelley Love MD [address] , [address] [address] PCP - General Family Practice 12/18/15 03/17/16 Alek Jones MD [address] , [address] [address] PCP - General Family Practice 03/18/16 01/11/22 [place] [address] [place] [address] PCP - General Family Medicine 01/12/22 11/14/23 Davonte Juan APRN [facility] [address] [place] [address] PCP - General Family Medicine 11/15/23 Rose Pelletier, [facility] Feed Mixer Helper 09/19/14 07/10/20 Alek Jones MD [address] , [address] [address] Assigned PCP 04/08/19 05/24/20 Alek Jones MD [address] , [address] [address] Assigned PCP 12/25/17 03/31/19 Alexa Simon PA-C [address], [address] [place] [address] Assigned PCP 04/01/19 04/07/19 Alexa Simon PA-C [address], [address] [place] [address] Assigned PCP 05/25/20 06/07/20 Alek Jones MD [address], [id number] [place] [address] Assigned PCP 06/08/20 02/14/21 [place](s)[address] [address] Snf Facility 10/27/20 11/14/20 Alexa Simon PA-C [address], [address] [address] Assigned PCP 02/15/21 02/28/21 Alek Jones MD [address], [address] [address] Assigned PCP 03/01/21 07/18/23 Brayden Du MD 9 [facility] [id number] [place] [address] MD [place] 05/06/22 Alexa Simon PA-C [address], [address] [place] [address] Assigned PCP 07/19/23 11/17/23 Maya Alfaro MD [address] [place] [address] Internal Medicine 11/15/23 Kelsy Matthews [address] [place] [address] Geriatric Services Research Leader 11/15/23 (Fgs), [facility]pts [facility] Living [address] [place] [phone] 11/15/23 Davonte Juan APRN CNP [address] [place] [address] Assigned PCP 11/18/23 documented as of this encounter
--- OUTSIDE RECORDS SUMMARY | 2024-01-16 17:46 | XMS_ITS | Clinical Summary ---
Author Organization [facility] Address [address] [place] [address] Care Team Providers Care Interactive Designer Name Role Phone Alek Jones MD Primary Care Provider [phone] Source Comments You are receiving this document as you are listed as the primary care provider,follow-up provider, or the patient has been referred to you for consultation.This is in compliance with the Medicare andSelect [facility]id EHR Incentive Program,which states Providers who transition their patient to another setting of careor provider of care or refers their patient to another provider of care shouldprovide summary care record for each transition of care or referral. 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 LW Onset: 20Fyz90 ; Arteriovenous Malformation Depression, major, in remission [...] 72.1 kg (159 lb) 03/31/2020 2:15 PM FELT FINISHER Height 160 cm (5' 3) 03/31/2020 2:15 PM FELT FINISHER Body Mass Index 28.17 03/31/2020 2:15 PM FELT FINISHER Plan of Treatment Health Maintenance Due Date [...] BILAT W CAD Routine 06/01/2011 12:35 PM FELT FINISHER Routine gynecological examination LIPID PANEL & DIRECT LDL (IF NEEDED) Routine 04/15/2010 1:56 PM FELT FINISHER from Last 3 Months or Most Recently Relevant to Health Maintenance Results * (ABNORMAL) MM Mammogram Screening Bilat W CAD (06/01/2011 12:35 PM FELT FINISHER) Anatomical Region Laterality Modality Breast Bilateral Mammography Impressions 06/01/2011 2:31 PM FELT FINISHER IMPRESSION: RIGHT BREAST: Architectural distortion posteriorly. Spot compression and ultrasound are recommended at this time. LEFT BREAST: Negative, no evidence of malignancy. Normal interval follow-up is recommended in 12 months. OVERALL ASSESSMENT - CATEGORY 0 - INCOMPLETE: NEED ADDITIONAL IMAGING EVALUATION END OF IMPRESSION SJW Narrative 06/01/2011 2:31 PM FELT FINISHER Comparison is made to films from 11/27/2009 [...] and Direct LDL(If Needed) (04/15/2010 1:56 PM FELT FINISHER) Cholesterol 264(H) 0 - 200 mg/dL HP CONVERSION Triglycerides 87 0 - 149 mg/dL HP CONVERSION HDL Cholesterol 83 >39 mg/dL HP CONVERSION Cholesterol/HDL Ratio Screen 3.2 No normal range HP CONVERSION LDL Calculated 164(H) 19 - 130 mg/dL HP CONVERSION Hours Fasting 12 No normal range HP CONVERSION 04/15/2010 1:56 PM FELT FINISHER Deandra Webb MD LAB_1 HP CONVERSION from Last 3 Months or Most Recently Relevant to Health Maintenance Care Teams Interactive Designer Relationship Specialty Start Date End Date Alek Jones MD [address], [address] [place] [address] PCP - General Family Practice 03/17/20
--- OUTSIDE RECORDS SUMMARY | 2024-01-16 17:46 | XMS_ITS | Encounter Summary ---
Author Organization [place] [facility] [place] [address] Care Team Providers Care Procedures Rn Name Role Phone Rose Pelletier TRIBAL DELEGATE Unavailable [phone] Alek Jones MD Primary Care Provide r Alek Jones MD Unavailable +[phone] Alek Jones MD Unavailable +[phone] Alexa Simon PA-C Unavailable + [phone] Alexa Simon PA-C Unavailable +[phone] Alek Jones MD Unavailable +[phone] Center(Fgs), [facility] Unavailable Alxea Simon PA-C Unavailable + [phone] Alek Jones MD Unavailable +[phone] Neelima Shukla DO Primary Care Provider [phone] Brayden Du MD Unavailable [place] ornelas PA-C Unavailable + [phone] Davonte Juan APRN HIGH RISK OB Primary Care Pr ovider + Maya Alfaro MD Unavailable [phone] Kelsy Matthews Unavailable + (Fgs), [facility] shanta Apts Asst Living Unavailable Davonte Juan APRN HIGH RISK OB Unavailable Encounter Details Date Type Department Care Team (Late st Contact Info) Description 12/19/2017 MyC Medical Advice [facility] [address] [place] [address] Ana Mueller MA Social History Tobacco Use Types Packs/Day Years Used Date Smoking Tobacco: Former Smokeless Tobacco: Never Alcohol Use Standard Drinks/Week Comments No 0 (1 standard drink = 0.6 oz pur e alcohol) Sex and Gender Information Value Date Recorded Sex Assigned at Female 02/28/2021 1:24 PM TERRAZZO FINISHER Gender Identity Female 02/28/2021 1:23 PM TERRAZZO FINISHER Sexual Orientation Straight 02/28/2021 1: 20 PM TERRAZZO FINISHER documented as of this encounter Plan of [...] documented as of this encounter Care Teams Procedures Rn Relationship Specialty Start Date End Date Alek Jones MD [address] [facility], [address] [address] PCP - General Family Practice 03/18/16 01/11/22 [place] [address] [place] [address] PCP - General Family Medicine 01/12/22 11/14/23 Davonte Juan APRN HIGH RISK OB 1700 [place] [address] PCP - General Family Medicine 11/15/23 Rose Pelletier LSW Drawbridge Operator 09/19/14 07/10/20 Alek Jones MD [address], [address] [address] Assigned PCP 04/08/19 05/24/20 Alek Jones MD [address], [address] [address] Assigned PCP 12/25/17 03/31/19 Alexa Simon PA-C [address] , [address] [address] Assigned PCP 04/01/19 04/07/19 Alexa Simon PA-C [address] , [address] [address] Assigned PCP 05/25/20 06/07/20 Alek Jones MD [address] , [address] [address] Assigned PCP 06/08/20 02/14/21 [place](Fgs), [address] [address] Fpc Facility 10/27/20 11/14/20 Alexa Simon PA-C [address] , [address] [address] Assigned PCP 02/15/21 02/28/21 Alek Jones MD [address] , [address] [address] Assigned PCP 03/01/21 07/18/23 Brayden Du MD 909 [facility] [id number] [place] [address] Neurology 05/06/22 Alexa Simon PA-C [address] , [facility] 100 [place] [address] Assigned PCP 07/19/23 11/17/23 [place] [address] [place] [address] Internal Medicine 11/15/23 Kelsy Matthews [address] [place] [address] Geriatric Services Beam Sealer 11/15/23 (Fgs), [facility] Senior Apts Asst Living [address] [place] [phone] 11/15/23 Davonte Juan APRN HIGH RISK OB [address] [place] [address] Assigned PCP 11/18/23 documented as of this encounter
--- OUTSIDE RECORDS SUMMARY | 2024-01-16 17:46 | XMS_ITS | Encounter Summary ---
Author Organization [place] Address [address] [place] [address]. [place] [address] Care Team Providers Care Nurse Prn Name Role Phone Jeramie Sterling MD Primary Care Provider Elodia Rose Oliveira QUALITY ASSURANCE DIRECTOR Unavailable [phone] Estela Dacosta PA-C Primary Care Pro vider Kelley Love MD Primary Care Provider [phone] Alek Jones MD Primary Care Provide r Alek Jones MD Unavailable +[phone] Alek Jones MD Unavailable +[phone] Alexa Simon PA-C Unavailable + [phone] Alexa Simno PA-C Unavailable + [phone] Alek Jones MD Unavailable +[phone] [place]([facility]gs)[facility] Unavailable Alexa Simon PA-C Unavailable + [phone] Alek Jones MD Unavailable +[phone] Neelima Shukla DO Primary Care Provider [phone] Brayden Du MD Unavailable Alexa Simon PA-C Unavailable + [phone] Davonte Juan APRN [facility] Primary Care Pr ovider Maya Alfaro MD Unavailable [phone] MatthewsKelsy huerta Unavailable (Fgs), [facility] Unavailable Davonte Juan APRN PEOPLESOFT CRM DEVELOPER Unavailable Reason for Visit * Reason Comments Medication Refill Encounter Details Date Type Department Care Team (Late st Contact Info) Description 02/18/2015 Refill [facility] [address] [place] [address] [place] [phone] Jeramie Sterling MD XXXX RESIGNED/INACTIVE XXXX Medication Refill Social History Tobacco Use Types Packs/Day Years Used Date Smoking Tobacco: Former Smokeless Tobacco: Never Alcohol Use Standard Drinks/Week Comments No 0 (1 standard drink = 0.6 oz pur e alcohol) Sex and Gender Information Value Date Recorded Sex Assigned at Female 02/28/2021 1:24 PM GLOVE PRESSER Gender Identity Female 02/28/2021 1:23 PM GLOVE PRESSER Sexual Orientation Straight 02/28/2021 1: 20 PM GLOVE PRESSER documented as of this encounter Miscellaneous Notes * Telephone Encounter - Jeramie Sterling MD - 02/18/2015 11:54 AM GLOVE PRESSER IS THIS A NEW MED, NO DX, HAVE WE RX IN PAST, ?? E PRESSER * Telephone Encounter - Deloris Eddy CMA - 02/18/2015 8:00 AM CST Pending Prescriptions: Disp Refills PROCTOZONE-HC 2.5 % rectal cream [Pharmac*30 g 0 Sig: INSERT 1 APPLICATION RECTALLY THREE TIMES DAILY FOR 10 DAYS You never prescribed this, are you willing to fill? 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 documented as of this encounter Care Teams Nurse Prn Relationship Specialty Start Date End Date Jeramie Sterling MD PCP - General Family Practice 07/24/14 11/09/15 Estela Dacosta PA-C PCP - General Family Practice 11/10/15 12/17/15 Kelley Love MD [address] , [address] [address] PCP - General Family Practice 12/18/15 03/17/16 Alek Jones MD [address] , [address] [address] PCP - General Family Practice 03/18/16 01/11/22 [place] [address] [place] [address] PCP - General Family Medicine 01/12/22 11/14/23 Davonte Juan APRN PEOPLESO[employer] CRM DEVELOPER [address] [place] [address] PCP - General Family Medicine 11/15/23 Rose Pelletier, QUALITY ASSURANCE DIRECTOR Facilities Maintenance Assistant 09/19/14 07/10/20 Alek Jones MD [address] , [address] [address] Assigned PCP 04/08/19 05/24/20 Alek Jones MD [address], [address] [address] Assigned PCP 12/25/17 03/31/19 Alexa Simon PA-C [address], [address] [address] Assigned PCP 04/01/19 04/07/19 Alexa Simon PA-C [address], [address] [address] Assigned PCP 05/25/20 06/07/20 Alek Jones MD [address], [address] [address] Assigned PCP 06/08/20 02/14/21 [place]), [address] [phone] Senior Living Facility 10/27/20 11/14/20 Alexa Simon PA-C [address], [address] [address] Assigned PCP 02/15/21 02/28/21 Alek Jones MD [address], [address] [address] Assigned PCP 03/01/21 07/18/23 Brayden Du MD [address] [place] [address] [id number], [place] [address] Neurology 05/06/22 Alexa Simon PA-C [address] , [facility] 100 [place] [address] Assigned PCP 07/19/23 11/17/23 Maya Alfaro MD [address]00 [place] [address] Internal Medicine 11/15/23 Kelsy Matthews [address] [place] [address] Geriatric Services Filament Coil [place] 11/15/23 (Fgs), [facility] Senior Apts Asst Living [address] [place] [phone] 11/15/23 Davonte Juan APRN PEOPLESO[employer] CRM DEVELOPER [address]00 [place] [address] Assigned PCP 11/18/23 documented as of this encounter
--- OUTSIDE RECORDS SUMMARY | 2024-01-16 17:46 | XMS_ITS | Encounter Summary ---
Author Organization [place] Address [address] [place] [address]. [place] [address] Care Team Providers Care Slag Expander Name Role Phone Jeramie Sterling MD Primary Care Provider Elodia Rose Oliveira RISK DEVELOPER Unavailable +[phone] Estela Dacosta PA-C Primary Care Pro vider Kelley Love MD Primary Care Provider [phone] Alek Jnoes MD Primary Care Provide r Alek Jones MD Unavailable +[phone] Alek Jones MD Unavailable +[phone] Alexa Simon PA-C Unavailable + [phone] Alexa Simon PA-C Unavailable + [phone] Alek Jones MD Unavailable +[phone] [place](Fgs)[facility] Unavailable Alexa Simon PA-C Unavailable + [phone] Alek Jones MD Unavailable +[phone] Neelima Shukla DO Primary Care Provider [phone] Brayden Du MD Unavailable Alexa Simon PA-C Unavailable + [phone] Davonte Juan APRN [facility] Primary Care Pr ovider Maya Alfaro MD Unavailable [phone] Kelsy Matthews Unavailable (Fgs), [facility] Unavailable Davonte Juan APRN WILLOW MACHINE TENDER Unavailable Reason for Visit * Reason Onset Date Comments MH/CD Inpatient 07/30/2014 Other Encounter Details Date Type Department Care Team ([facility] st Contact Info) Description 07/30/[address] [facility] Behavioral Health Intake [address] [place] [address] Generic, Behavioral Intake, MH/CD Inpatient; Social History Tobacco Use Types Packs/Day Years Used Date Smoking Tobacco: Former Smokeless Tobacco: Never Alcohol Use Standard Drinks/Week Comments No 0 (1 standard drink = 0.6 oz pur e alcohol) Sex and Gender Information Value Date Recorded Sex Assigned at Female 02/28/2021 1:24 PM MEDICAL DIRECTOR OF HOSPICE Gender Identity Female 02/28/2021 1:23 PM MEDICAL DIRECTOR OF HOSPICE Sexual Orientation Straight 02/28/2021 1: 20 PM MEDICAL DIRECTOR OF HOSPICE documented as of this encounter Miscellaneous Notes * Telephone Encounter - Nino Flores, RN - 07/30/2014 3:09 PM CDT S: Patient presents to [place] [facility] brought in by friends with a [...] documented as of this encounter Care Teams Slag Expander Relationship Specialty Start Date End Date Jeramie Sterling MD PCP - General Family Practice 07/24/14 11/09/15 Estela Dacosta PA-C PCP - General Family Practice 11/10/15 12/17/15 Kelley Love MD [address], [address] [address] PCP - General Family Practice 12/18/15 03/17/16 Alek Jones MD [address] , [address] [address] PCP - General Family Practice 03/18/16 01/11/22 [place] [address] [place] [address] PCP - General Family Medicine 01/12/22 11/14/23 Davonte Juan APRN WILLOW MACHINE TENDER 17[address] [place] [address] PCP - General Family Medicine 11/15/23 Rose Pelletier LSW Mash Filter Cloth Changer 09/19/14 07/10/20 Alek Jones MD [address], [address] [address] Assigned PCP 04/08/19 05/24/20 Alek Jones MD [address] , [address] [address] Assigned PCP 12/25/17 03/31/19 Alexa Simon PA-C [address] , [address] [address] Assigned PCP 04/01/19 04/07/19 Alexa Simon PA-C [address], [address] [address] Assigned PCP 05/25/20 06/07/20 Alek Jones MD [address], [address] [address] Assigned PCP 06/08/20 02/14/21 [place]([facility]), [address] [address] Residential Facility 10/27/20 11/14/20 Alexa Simon PA-C [address] , [address] [address] Assigned PCP 02/15/21 02/28/21 Alek Jones MD [address] , [address] [address] Assigned PCP 03/01/21 07/18/23 Brayden Du MD 909 [facility] [id number] [place] [address] Neurology 05/06/22 Alexa Simon PA-C [address], [facility] [address] [place] [address] Assigned PCP 07/19/23 11/17/23 [place] [address] [place] [address] Internal Medicine 11/15/23 Kelsy Matthews 1700 [place] [address] Geriatric Services Edge Sawyer 11/15/23 (Fgs), [facility] Senior Apts Asst Living [address] [place] [phone] 11/15/23 Davonte Juan APRN WILLOW MACHINE TENDER [address] [place] [address] Assigned PCP 11/18/23 documented as of this encounter
--- OUTSIDE RECORDS SUMMARY | 2024-01-16 17:46 | XMS_ITS | Encounter Summary ---
Author Organization [place] Address [address] [place] [address]. [place] [address] Care Team Providers Care Materials Development Engineer Name Role Phone Jeramie Sterling MD Primary Care Provider Elodia Rose Oliveira DRONE SOFTWARE DEVELOPMENT ENGINEER Unavailable [phone] Estela Dacosta PA-C Primary Care Pro vider Kelley Love MD Primary Care Provider [phone] Alek Jones MD Primary Care Provide r Alek Jones MD Unavailable [phone] Alek Jones MD Unavailable +[phone] Alexa Simon PA-C Unavailable + [phone] Alexa Simon PA-C Unavailable + [phone] Alek Jones MD Unavailable +[phone] [place](Fgs)[facility] Unavailable Alexa Simon PA-C Unavailable + [phone] Alek Jones MD Unavailable +[phone] Neelima Shukla DO Primary Care Provider +[phone] Brayden Du MD Unavailable Alexa Simon PA-C Unavailable + [phone] Davonte Juan APRN [facility] Primary Care Pr ovider Maya Alfaro MD Unavailable [phone] Kelsy Matthews Unavailable (Fgs), [facility] Unavailable Davonte Juan APRN HIGH SCHOOL COMPUTER SCIENCE TEACHER Unavailable Reason for Visit * Reason Comments Other Encounter Details Date Type Department Care Team ([facility] Contact Info) Description 08/02/2014 Telephone [facility] Behavioral Health Intake [address] [place] [address] Generic, Behavioral Intake, Social History Tobacco Use Types Packs/Day Years Used Date Smoking Tobacco: Former Smokeless Tobacco: Never Alcohol Use Standard Drinks/Week Comments No 0 (1 standard drink = 0.6 oz pur e alcohol) Sex and Gender Information Value Date Recorded Sex Assigned at Female 02/28/2021 1:24 PM PUTTIER Gender Identity Female 02/28/2021 1:23 PM PUTTIER Sexual Orientation Straight 02/28/2021 1: 20 PM PUTTIER documented as of this encounter Miscellaneous Notes * Telephone Encounter - Chayo Fraire - 08/02/2014 1:57 PM CDT ----- Message from Mihaela Gillette sent at 08/02/2014 12:47 PM CDT ----- Regarding: Seniors DOP referral I will fax [facility] Courtesy Rule 25 and ask for them to contact [facility] and [place] site with authorization. * Telephone Encounter - [...] documented as of this encounter Care Teams Materials Development Engineer Relationship Specialty Start Date End Date Jeramie Sterling MD PCP - General Family Practice 07/24/14 11/09/15 Estela Dacosta PA-C PCP - General Family Practice 11/10/15 12/17/15 Kelley Love MD [address] , [facility] 100 [place] [address] PCP - General Family Practice 12/18/15 03/17/16 Alek Jones MD [address] , [address] [address] PCP - General Family Practice 03/18/16 01/11/22 [place] [address] [place] [address] PCP - General Family Medicine 01/12/22 11/14/23 Davonte Juan APRN CNP [address] [place] [address] PCP - General Family Medicine 11/15/23 Rose Pelletier, [facility] Land Department Head 09/19/14 07/10/20 Alek Jones MD [address], [address] [address] Assigned PCP 04/08/19 05/24/20 Alek Jones MD [address], [address] [address] Assigned PCP 12/25/17 03/31/19 Alexa Simon PA-C [address], [address] [address] Assigned PCP 04/01/19 04/07/19 Alexa Simon PA-C [address], [address] [address] Assigned PCP 05/25/20 06/07/20 Alek Jones MD [address], [address] [address] Assigned PCP 06/08/20 02/14/21 Center([facility]gs), [address] [address] Intermediate Facility 10/27/20 11/14/20 Alexa Simon PA-C [address], [address] [address] Assigned PCP 02/15/21 02/28/21 Alek Jones MD [address] , [id number] [place] [address] Assigned PCP 03/01/21 07/18/23 Brayden Du MD 909 [facility] [id number] [place] [address] Neurology 05/06/22 Alexa Simon PA-C [address] , [facility] 100 [place] [address] Assigned PCP 07/19/23 11/17/23 Maya Alfaro MD [address]00 [place] [address] Internal Medicine 11/15/23 Kelsy Matthews [address] [place] [address] Geriatric Services Needle Process Felt Goods Supervisor 11/15/23 (Fgs), [facility] Senior Apts Asst Living [address] [place] [phone] 11/15/23 Davonte Juan APRN HIGH SCHOOL COMPUTER SCIENCE TEACHER [address] [place] [address] Assigned PCP 11/18/23 documented as of this encounter
--- OUTSIDE RECORDS SUMMARY | 2024-01-16 17:46 | XMS_ITS | Encounter Summary ---
Author Organization [facility] Address [address] [address] Phone Care Team Providers Care Thermite Welder Name Role Phone Elsewhere, Pcp Primary Care Provider Unavailabl e Reason for Visit * Diagnostic (Routine) - Closed Specialty Diagnoses / Procedures Referred By Contac t Referred To Contact Radiology Diagnoses Brain aneurysm Procedures MR ANGIO HEAD WO W CONTRAST Annette Merlos MD [address] [facility] [address] [place] [address] Phone: tel: fax: Referral ID Status Reason Start Date Expiration Date Visits Re quested Visits Authorized [id number] Closed 12/21/2023 02/04/2024 1 1 Encounter Details Date Type Department Care Team (Latest Contact Info) Description 01/09/2024 3:00 PM CDT Ancillary Procedure [facility] [address] [facility] [address] [place] [phone] Annette Merlos MD [address] [facility] [address] [place] [address] Brain aneurysm Social History Tobacco Use Types Packs/Day Years [...] Routine 01/09/2024 3:39 PM CDT Brain aneurysm documented in this encounter Results * MR ANGIO HEAD WO W [...] be obtained. Annette Merlos M.D. Neurointerventional Radiologist [facility] [place] Pager: [phone] Office/Referrals: [phone] [facility] Center: [phone] [email or web address] Dictated by: Annette Merlos MD @ 01/10/2024 10:03:29 Electronically Signed Procedure Note Annette Merlos MD - 01/10/2024 For Patients: As a result of the [...] willbe obtained. Annette Merlos M.D. Neurointerventional Radiologist [facility] [place] Pager: [phone] Office/Referrals: [phone] [facility] Center: [phone] [email or web address] Dictated by: Annette Merlos MD @ 01/10/2024 10:03:29 Electronically Signed us Annette Merlos MD EC MRI ORDERABLES Final Resu lt documented in this encounter Visit Diagnoses Diagnosis Brain aneurysm Cerebral aneurysm, nonruptured documented in this encounter Administered Medications Inactive Administered Medications Medication Order MAR Action Action Date Dose Rate Site gadoterate meglumine (Dotarem, Clariscan) 10 mmol/20 mL injection 17 mL 17 mL, IV Push, ONCE, 1 dose, On 01/09/24 at 1600 Given 01/09/2024 3:40 PM CDT 17 mL documented in this encounter Orders Medications Ordered That Arian ht Not Have Been Administered Count Last Ordered Date First Ordered Date gadoterate meglumine (Dotare m, Clariscan) 10 mmol/20 mL injection 17 mL 1 01/09/2024 documented in this encounter Care Teams Thermite Welder Relationship Specialty Start Date End Date Elsewhere, Pcp PCP - General 01/05/24 documented as of this encounter
--- OUTSIDE RECORDS SUMMARY | 2024-01-16 17:46 | XMS_ITS | Encounter Summary ---
Author Organization [place] Address [facility] [place] [address] Care Team Providers Care Peat Shredder Tender Name Role Phone Rose Pelletier ICICLE MACHINE OPERATOR Unavailable [phone] Alek Jones MD Primary Care Provide r Alek Jones MD Unavailable [phone] Alek Jones MD Unavailable [phone] Alexa Simon PA-C Unavailable + [phone] Alexa Simon PA-C Unavailable +[phone] Alek Jones MD Unavailable +[phone] Center(Fgs), [facility] Unavailable Alexa Simon PA-C Unavailable + [phone] Alek Jones MD Unavailable +[phone] Neelima Shukla DO Primary Care Provider [phone] Brayden Du MD Unavailable [place] FallsAlexa ornelas PA-C Unavailable + [phone] Davonte Juan APRN SALES REPRESENTATIVE [employer]ALT [employer] Primary Care Pr ovider + Maya Alfaro MD Unavailable [phone] Kelsy Matthews Unavailable + (Fgs), [facility] Living Unavailable Davonte Juan APRN SALES REPRESENTATIVE MALT LIQUORS Unavailable Reason for Visit * Reason Comments Medication Refill Encounter Details Date Type Department Care Team (Late st Contact Info) Description 10/11/2016 Refill [facility] Physicians [address] [address] [place] [address] Alek Jones MD [address], [address] [place] [address] Medication Refill Social History Tobacco Use Types Packs/Day Years Used Date Smoking Tobacco: Former Smokeless Tobacco: Never Alcohol Use Standard Drinks/Week Comments No 0 (1 standard drink = 0.6 oz pur e alcohol) Sex and Gender Information Value Date Recorded Sex Assigned at Female 02/28/2021 1:24 PM TELEVISION TUBE INSPECTOR Gender Identity Female 02/28/2021 1:23 PM TELEVISION TUBE INSPECTOR Sexual Orientation Straight 02/28/2021 1: 20 PM TELEVISION TUBE INSPECTOR documented as of this encounter Miscellaneous Notes * Telephone Encounter - Brooklyn Celestin - 10/11/2016 11:14 AM CDT Message left for Pt that a 30 day Rx refill was authorized, and pt should schedule a non fasting OV. * Telephone Encounter - Ana Mueller MA - 10/11/2016 8:31 AM CDT Jana[facility] in [facility] Pt is due for ov NON fasting Jayna [phone] (home) documented in this encounter Plan of [...] Depression Total Score: 13 017 7:16 AM TELEVISION TUBE INSPECTOR documented as of this encounter Care Teams Peat Shredder Tender Relationship Specialty Start Date End Date Alek Jones MD [address] [address] PCP - General Family Practice 03/18/16 01/11/22 [place] [address] [place] [address] PCP - General Family Medicine 01/12/22 11/14/23 Davonte Juan APRN CNP [address] [place] [address] PCP - General Family Medicine 11/15/23 Rose Pelletier, [facility] Outdoor Education Teacher 09/19/14 07/10/20 Alek Jones MD [address] [place] [address] Assigned PCP 04/08/19 05/24/20 Alek Jones MD [address], [address] [address] Assigned PCP 12/25/17 03/31/19 Alexa Simon PA-C [address] [address] Assigned PCP 04/01/19 04/07/19 Alexa Simon PA-C [address] [place] [address] Assigned PCP 05/25/20 06/07/20 Alek Jones MD [address] [address] Assigned PCP 06/08/20 02/14/21 [place]), [address] [address] Half-Way Facility 10/27/20 11/14/20 Alexa Simon PA-C [address] [address] Assigned PCP 02/15/21 02/28/21 Alek Jones MD [address], [address] [address] Assigned PCP 03/01/21 07/18/23 Brayden Du MD [address] [place] [address] [id number] [place] [address] Neurology 05/06/22 Alexa Simon PA-C [address], [address] [address] Assigned PCP 07/19/23 11/17/23 Maya Alfaro MD [address] [place] [address] Internal Medicine 11/15/23 Kelsy Matthews [address] [place] [address] Geriatric Services Data Processing Manager 11/15/23 (Fgs), [facility] [address] [place] [address] 11/15/23 Davonte Juan, LONG SALES REPRESENTATIVE [employer]ALT [employer]QU[employer] [address] [place] [address] Assigned PCP 11/18/23 documented as of this encounter
--- OUTSIDE RECORDS SUMMARY | 2024-01-16 17:46 | XMS_ITS | Encounter Summary ---
Author Organization [place] Address [address] [place] [address]. [place] [address] Care Team Providers Care Toll Mechanic Name Role Phone Rose Pelletier PERINATAL COORDINATOR Unavailable [phone] Alek Jones MD Primary Care Provide r Alek Jones MD Unavailable [phone] Center(Fgs), [facility] Unavailable Alexa Simon PA-C Unavailable + [phone] Alek Jones MD Unavailable [phone] Neelima Shukla DO Primary Care Provider [phone] Brayden Du MD Unavailable Alexa Simon PA-C Unavailable + [phone] Davonte Juan APRN BENEFITS SPECIALIST RECRUITER Primary Care Pr ovider Maya Alfaro MD Unavailable [phone] Kelsy Matthews Unavailable + [facility] Unavailable Davonte Juan APRN BENEFITS SPECIALIST RECRUITER Unavailable Encounter Details Date Type Department Care [...] Sex Assigned at Female 02/28/2021 1:24 PM UROLOGY TEACHER Gender Identity Female 02/28/2021 1:23 PM UROLOGY TEACHER Sexual Orientation Straight 02/28/2021 1: 20 PM UROLOGY TEACHER documented as of this encounter Plan of Treatment Not on file documented as of this encounter Visit Diagnoses Not on filedocumented in this encounter Additional Health Concerns Infection Onset Date Last Indicated Resolved Time 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/07/2020 11/07/2020 11/09/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 Assessment Noted Time PHQ-9 Depression Total Score: 11 021 3:32 PM UROLOGY TEACHER documented as of this encounter Care Teams Toll Mechanic Relationship Specialty Start Date End Date Alek Jones MD [address] [place] [address] PCP - General Family Practice 03/18/16 01/11/22 [place] [address] [place] [address] PCP - General Family Medicine 01/12/22 11/14/23 Davonte Juan APRN CNP [address] [place] [address] PCP - General Family Medicine 11/15/23 Rose Pelletier, [facility] Care Sales Consultant 09/19/14 07/10/20 Alek Jones MD [address] , [address] [address] Assigned PCP 06/08/20 02/14/21 [place]), [address] [address] Custodial Facility 10/27/20 11/14/20 Alexa Simon PA-C [address], [address] [address] Assigned PCP 02/15/21 02/28/21 Alek Jones MD [address], [address] [address] Assigned PCP 03/01/21 07/18/23 Brayden Du MD 9 [facility] [address] Neurology 05/06/22 Alexa Simon PA-C [address], [address] [address] Assigned PCP 07/19/23 11/17/23 Maya Alfaro MD [address] [place] [address] Internal Medicine 11/15/23 Kelsy Matthews [address] [place] [address] Geriatric Services Hr Intern 11/15/23 (Fgs), [facility] [address] [place] [phone] 11/15/23 Davonte Juan APRN BENEFITS SPECIALIST RECRUITER [address] [place] [address] Assigned PCP 11/18/23 documented as of this encounter
--- OUTSIDE RECORDS SUMMARY | 2024-01-16 17:46 | XMS_ITS | Encounter Summary ---
Author Organization [place] Address [address] [place] [address]. [place] [address] Care Team Providers Care Welding Systems And Equipment Repairer Name Role Phone Jeramie Sterling MD Primary Care Provider Elodia Rose Oliveira FLOTATION TENDER Unavailable [phone] Estela Dacosta PA-C Primary Care Pro vider Kelley Love MD Primary Care Provider [phone] Alek Jones MD Primary Care Provide r Alek Jones MD Unavailable [phone] Alek Jones MD Unavailable [phone] Alexa Simon PA-C Unavailable + [phone] Alexa Simon PA-C Unavailable + [phone] Alek Jones MD Unavailable [phone] [place](Fgs)[facility] Unavailable Alexa Simon PA-C Unavailable + [phone] Alek Jones MD Unavailable [phone] Neelima Shukla DO Primary Care Provider [phone] Brayden Du MD Unavailable Alexa Simon PA-C Unavailable + [phone] Davonte Juan APRN [facility] Primary Care Pr ovider Maya Alfaro MD Unavailable [phone] MatthewsKelsy huerta Unavailable (Fgs), [facility] Unavailable Davonte Juan APRN SKELP PROCESSOR Unavailable Reason for Visit * Reason Comments Medication Refill Encounter Details Date Type Department Care Team (Late st Contact Info) Description 02/17/2015 Refill [facility] Physicians [address] [place] [address] [place] [phone] Jeramie Sterling MD XXXX RESIGNED/INACTIVE XXXX Medication [...] SERVICE DISPATCHER documented as of this encounter Miscellaneous Notes [...] to see her? 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 documented as of this encounter Care Teams Welding Systems And Equipment Repairer Relationship Specialty Start Date End Date Jeramie Sterling MD PCP - General Family Practice 07/24/14 11/09/15 Etsela Dacosta PA-C PCP - General Family Practice 11/10/15 12/17/15 Kelley Love MD [address] , [address] [address] PCP - General Family Practice 12/18/15 03/17/16 Alek Jones MD [address] [place] [address] PCP - General Family Practice 03/18/16 01/11/22 [place] [address] [place] [address] PCP - General Family Medicine 01/12/22 11/14/23 Davonte Juan APRN CNP [address] [place] [address] PCP - General Family Medicine 11/15/23 Rose Pelletier, [facility] Vessel Welder 09/19/14 07/10/20 Alek Jones MD [address], [address] [address] Assigned PCP 04/08/19 05/24/20 Alek Jones MD [address], [address] [address] Assigned PCP 12/25/17 03/31/19 Alexa Simon PA-C [address] , [address] [address] Assigned PCP 04/01/19 04/07/19 Alexa Simon PA-C [address], [address] [address] Assigned PCP 05/25/20 06/07/20 Alek Jones MD [address] , [address] [address] Assigned PCP 06/08/20 02/14/21 [place](Fgs), [address] [address] Senior Living Facility 10/27/20 11/14/20 Alexa Simon PA-C [address] , [address] [address] Assigned PCP 02/15/21 02/28/21 Alek Jones MD [address] , [address] [address] Assigned PCP 03/01/21 07/18/23 Brayden Du MD 9 [facility] [id number] [place] [address] MD Reynolds 05/06/22 Alexa Simon PA-C [address], [address] [place] [address] Assigned PCP 07/19/23 11/17/23 [place] [address] [place] [address] Internal Medicine 11/15/23 Kelsy Matthews [address] [place] [address] Geriatric Services Changeover Operator 11/15/23 (Fgs), [facility] [address] [place] [address] 11/15/23 Davonte Juan APRN SKELP PROCESSOR [address] [place] [address] Assigned PCP 11/18/23 documented as of this encounter
[2024-01-16 17:56] LABS: Albumin* 4.6 g/dL (3.3-5.0); Chloride* 96 mmol/L (96-114)
[2024-01-16 17:57] LABS: Potassium* 3.6 mmol/L (3.6-5.1); Sodium* 141 mmol/L (135-149)
[2024-01-16 17:59] LABS: Creatinine* 0.6 mg/dL (0.5-1.5); Est. Creatinine Clearance* 47.79; Estimated Glomerular Filt Rate 99 ml/min; Slide Review Reflex No
[2024-01-16 18:00] LABS: Alanine Aminotransferase* 30 U/L (4-35); Alkaline Phosphatase* 166 U/L (40-150); Anion Gap 12 mEq/L (7-15); Aspartate Amino Transferase* 51 U/L (12-35); Bilirubin Direct* 0.1 mg/dL (0.0-0.5); Bilirubin Total* 0.2 mg/dL (0.1-1.5); Blood Urea Nitrogen* 15 mg/dL (7-30); Calcium* 8.5 mg/dL (8.4-10.6); Carbon Dioxide* 33 mmol/L (20-32); Glucose* 125 mg/dL (60-115); Magnesium* 2.2 mg/dL (1.5-2.6); Total Protein* 7.9 g/dL (6.0-8.3)
[2024-01-16 18:01] LABS: Ethanol* 0.09 % (0.01-0.03)
[2024-01-16 18:03] LABS: C Reactive Protein* 0.6 mg/dL (0.5-1.0)
[2024-01-16 18:05] LABS: INR 1.29 (0.91-1.10)
[2024-01-16 18:06] LABS: Partial Thromboplastin Time* 31 Seconds (23-33)
[2024-01-16 18:07] LABS: Lipase* 93 U/L (23-300)
[2024-01-16 18:10] LABS: NT Pro B Type NatriureticPept* 96 pg/mL
[2024-01-16 18:15] LABS: Troponin I* < 0.01 ng/mL (0.01-0.04)
--- NOTE | 2024-01-16 23:20 | P.IMCN_ITS ---
Date of Consult Consult date: 01/16/24 Requesting Physician: Other (ED) Primary Care Provider: Neelima Shukla, Consult Narrative Narrative: Sultana Mueller is a 68 year old female with a complex medical history. Most notably she has been having recurrent falls, chronic alcoholism/drinks daily, severe fatty liver who presented to the ED from her [facility] apartment in [facility] for her 2nd fall today. She has a large hematoma over her left eye. Trauma workup negative. However, ED calls to discuss secondary to an ammonia level of 66 and mild bump in her lactate but pH 7.4 and stable vital signs/hemodynamically stable. Her EtoH was 0.09 and patient thinks her last drink was yesterday sometime. When I visit bedside with Charito; I explained how alcohol is affecting her liver and that I'd recommend an overnight observation stay. She refuses; she cites too many responsibilities and I'll let too many people down but cant give me a specific example. I agree with ED documentation and neuro exam. She has a ULTIMATE HOOPS REFEREE who comes 3x a week. I reviewed her last two [facility] home visits with geriatrics. There is documentation of frequent falls; alcohol use; staff concern. She has had at least 2 [facility]; she has a medical assistance/[facility] case therapist with [facility]. In review of [employer] and [employer] I can find no information that she has a court appointed guardian. In my medical opinion, Charito is making poor choices and should stop drinking; but those are her decisions to make. I do not think she is encephalopathic to the point of being incapable of decision making. I did ask Charito if it would be okay to reach out to her case therapist and/or ULTIMATE HOOPS REFEREE team. She agreed. I discussed case with ER MD; Dr. CRAMER I spent 1 hour reviewing [employer], consulting with ED and interviewing patient. [facility] Medical History (Updated 01/16/24 @ 23:40 by Alexa Chen MD) ICAO (internal carotid artery occlusion) ?I65.29 - Occlusion and stenosis of unspecified carotid artery (ICD-10) Alcohol use disorder ?F10.90 - Alcohol use, unspecified, uncomplicated (ICD-10) Restless leg syndrome ?G25.81 - Restless legs syndrome (ICD-10) Depression ?F32.A - Depression, unspecified (ICD-10) Hepatic steatosis ?K76.0 - Fatty (change of) liver, not elsewhere classified (ICD-10) History of CVA (cerebrovascular accident) ?Z86.73 - Personal history of transient ischemic attack (TIA), and cerebral infarction without residual deficits (ICD-10) Hypertension ?I10 - Essential (primary) hypertension (ICD-10) Dyslipidemia ?E78.5 - Hyperlipidemia, unspecified (ICD-10) Surgical History H/O craniotomy ?Z98.890 - Other specified postprocedural states (ICD-10) H/O brain surgery ?Z98.890 - Other specified postprocedural states (ICD-10) Social History Narrative: [facility] he has 5 hours of ULTIMATE HOOPS REFEREE Tue-. She has a good friend in the building who helps her as well, this is Damian [phone] and he has a martini to her apartment What is your current living situation?: I presently have a place to live Problems where you live: no known problems Problems where you live details: N/A In the past 12 months, utilities in danger of being shut off: yes In past 12 months, lack of transportation kept you from medical appts, meetings, work, or getting things needed for daily living: no In the past 12 mos, have been you worried that your food would run out before you had money to buy more?: sometimes true In the past 12 mos, the food you bought just didn't last and you didn't have money to buy more?: sometimes true Highest level of school completed/degree received: 12th grade, no diploma Smoking Status: Never smoker How often do you have a drink containing alcohol: 2-3 times a week Alcohol type: wine Alcohol type details: bottle of wine daily How many standard drinks containing alcohol do you have on a typical day: 1 or 2 How often do you have six or more drinks on one occasion: Never AUDIT-C Alcohol total score: 3 Non-prescribed substance use: denies use Caffeine: Yes How often does anyone, including family, friends and others, physically hurt you : never How often does anyone, including family, friends and others, insult or talk down to you: never How often does anyone, including family, friends and others, threaten you with harm: never How often does anyone, including family, friends and others, scream or curse at you: never service: No Meds Home Medications and Allergies Home Medications ?Medication ?Instructions ?Recorded ?Confirmed ?Type aspirin 81 mg chewable tablet 81 mg PO DAILY 07/05/23 07/05/23 History calcium carbonate (Antacid 200 mg PO QID PRN 07/05/23 07/05/23 History (calcium carbonate)) cholecalciferol (vitamin D3) 50 50 mcg PO DAILY 07/05/23 07/05/23 History mcg (2,000 unit) capsule (Vitamin D3) citalopram 40 mg tablet 40 mg PO DAILY 07/05/23 07/05/23 History clopidogrel 75 mg tablet 75 mg PO Q48H 07/05/23 07/05/23 History cyanocobalamin (vitamin B-12) 1,000 mcg PO DAILY 07/05/23 07/05/23 History 1,000 mcg tablet folic acid 1 mg tablet 1 mg PO DAILY 07/05/23 07/05/23 History metoprolol tartrate 50 mg tablet 50 mg PO BID blood pressure 07/05/23 07/05/23 History mirtazapine 45 mg tablet 45 mg PO QPM 07/05/23 07/05/23 History multivitamin 1 tab PO DAILY 07/05/23 07/05/23 History nicotine (polacrilex) 4 mg buccal 4 mg buccal Q1-2H PRN 07/05/23 07/05/23 History lozenge omeprazole 20 mg capsule,delayed 20 mg PO QAM 07/05/23 07/05/23 History release phenytoin sodium extended 100 mg 100 mg PO BID@,14 07/05/23 07/05/23 History capsule phenytoin sodium extended 100 mg 200 mg PO HS 07/05/23 07/05/23 History capsule (Dilantin Extended) pregabalin 300 mg capsule 300 mg PO BID 07/05/23 07/05/23 History ropinirole 0.5 mg tablet 1.5 mg PO HS 07/05/23 07/05/23 History rotigotine 2 mg/24 hour 1 patch topical DAILY 07/05/23 07/05/23 History transdermal 24 hour patch (Neupro) sumatriptan succinate 100 mg tablet 100 mg PO BID PRN migraine 07/05/23 07/05/23 History suvorexant 20 mg tablet (Belsomra) 20 mg PO HS 07/05/23 07/05/23 History Allergies Allergy/AdvReac Type Severity Reaction Status Date / Time No Known Drug Allergies Allergy Verified 07/05/23 16:28 Exam Const: Vital Signs, click to edit/add: Vital Signs - 24 hr 01/16/24 16:06 01/16/24 16:30 01/16/24 17:00 Temperature 97.6 F Pulse Rate Pulse Rate [Pulse Oximeter] 79 82 85 Respiratory Rate 19 18 18 Blood Pressure Blood Pressure [Ri ght Upper Arm] 125/77 132/82 138/90 H Pulse Oximetry 95 98 98 Oxygen Delivery Me thod Room Air Room Air Room Air 01/16/24 17:18 01/16/24 17:19 01/16/24 17:21 Temperature Pulse Rate 82 81 79 Pulse Rate [Pulse Oximeter] Respiratory Rate 16 Blood Pressure 133/82 132/78 Blood Pressure [Ri ght Upper Arm] Pulse Oximetry 96 97 96 Oxygen Delivery Me thod Room Air 01/16/24 17:30 01/16/24 17:41 01/16/24 17:47 Temperature Pulse Rate 81 80 80 Pulse Rate [Pulse Oximeter] Respiratory Rate 18 Blood Pressure 129/92 H Blood Pressure [Ri ght Upper Arm] Pulse Oximetry 97 97 96 Oxygen Delivery Me thod Room Air 01/16/24 17:57 01/16/24 18:00 01/16/24 18:01 Temperature Pulse Rate 79 79 Pulse Rate [Pulse Oximeter] Respiratory Rate Blood Pressure 114/57 L Blood Pressure [Ri ght Upper Arm] Pulse Oximetry 98 96 97 Oxygen Delivery Me thod 01/16/24 18:15 01/16/24 18:21 01/16/24 18:30 Temperature Pulse Rate 84 82 76 Pulse Rate [Pulse Oximeter] Respiratory Rate Blood Pressure 113/72 Blood Pressure [Ri ght Upper Arm] Pulse Oximetry 97 97 95 Oxygen Delivery Me thod 01/16/24 18:42 01/16/24 18:45 01/16/24 18:46 Temperature Pulse Rate 87 87 82 Pulse Rate [Pulse Oximeter] Respiratory Rate Blood Pressure 113/73 Blood Pressure [Ri ght Upper Arm] Pulse Oximetry 97 96 94 Oxygen Delivery Me thod 01/16/24 19:00 01/16/24 19:30 Temperature Pulse Rate 79 86 Pulse Rate [Pulse Oximeter] Respiratory Rate Blood Pressure Blood Pressure [Ri ght Upper Arm] Pulse Oximetry 95 95 Oxygen Delivery Me thod Labs Labs: Short CBC 01/16/24 Range/Units 17:32 WBC 9.43 (4.50-11.00) K/uL Hgb 10.9 L (12.0-16.0) gm/dL Hct 34.9 (33.0-51.0) % Plt Count 269 (140-440) K/uL BMP 01/16/24 17:32 Sodium 141 Potassium 3.6 Chloride 96 Carbon Dioxide 33 H BUN 15 Creatinine 0.6 Glucose 125 H Calcium 8.5 Cardiac Enzymes 01/16/24 01/16/24 Range/Units 17:32 17:32 Troponin I < 0.01 L Cancelled (0.01-0.04) ng/mL Liver Function 01/16/24 Range/Units 17:32 Total Bilirubin 0.2 (0.1-1.5) mg/dL Direct Bilirubin 0.1 (0.0-0.5) mg/dL AST 51 H (12-35) U/L ALT 30 (4-35) U/L Alkaline Phosphatase 166 H (40-150) U/L Albumin 4.6 (3.3-5.0) g/dL Assessment and Plan Assessment and plan (1) Alcohol use disorder: Problem comment: Drinks daily; hx of DTs/seizures [facility] x [facility] to [facility] in recent years Lives at an [facility] with some support from [facility]; has a case therapist with county No guardianship liver disease is progressive as of Dec 2023 (increased ammonia, INR, LFTs) counseled on disease, abstinence Status: Acute (2) Increased ammonia level: Problem comment: 20-32 baseline in early 2023; up to 66 (without acute neuro findings) on 12/2023 Status: Acute (3) Traumatic hematoma of face: Problem comment: left eyebrow; CT negative - 12/2023 Status: Acute (4) Fall: Status: Acute (5) Hepatic steatosis: Problem comment: severe elevated LFTS, INR, ammonia level daily drinking as of 12/2023 Status: Chronic
== END 2024-01-16 20:45 | disposition home or self-care (01) ==
PROVIDERS: Emergency Provider Family Medicine; PCP Family Medicine
DX: S00.83XA Contusion of other part of head, initial encounter (principal); F10.920 Alcohol use, unspecified with intoxication, uncomplicated; E72.20 Disorder of urea cycle metabolism, unspecified; W18.2XXA Fall in (into) shower or empty bathtub, initial encounter; Z51.81 Encounter for therapeutic drug level monitoring
CPT/HCPCS: 36415; 70450; 70486; 72125; 80053; 80306; 82077; 82140; 82248; 83605; 83690; 83735; 83880; 84484; 85025; 85610; 85730; 86140; 87631; 93005; 94761; 99284; 99285

== ENCOUNTER 2024-01-16 20:44 | Outpatient (CLI) | payer MEDICARE, MEDICAID, SELFPAY ==
--- OUTSIDE RECORDS SUMMARY | 2024-02-03 03:15 | XMS_ITS | Encounter Summary ---
Author Organization [facility] Address [address] [address] Phone Care Team Providers Care Motor Vehicle Parts Interpreter Name Role Phone Elsewhere, Pcp Primary Care Provider Unavailabl e Reason for Visit * Diagnostic (Routine) - Closed Specialty Diagnoses / Procedures Referred By Contac t Referred To Contact Radiology Diagnoses Brain aneurysm Procedures MR ANGIO HEAD WO W CONTRAST Annette Merlos MD [address] [facility] [address] [place] [address] Phone: tel: fax: Referral ID Status Reason Start Date Expiration Date Visits Re quested Visits Authorized [id number] Closed 12/21/2023 02/04/2024 1 1 Encounter Details Date Type Department Care Team (Latest Contact Info) Description 01/09/2024 3:00 PM CDT Ancillary Procedure [facility] [address] [facility] [address] [place] [phone] Annette Merlos MD [address] [facility] [address] [place] [address] Brain aneurysm Social History Tobacco [...] be obtained. Annette Merlos M.D. Neurointerventional Radiologist [facility] [place] Pager: [phone] Office/Referrals: [phone] [facility] Center: [phone] [email or web address] Dictated by: Annette Merlos MD @ 01/10/2024 [...] willbe obtained. Annette Merlos M.D. Neurointerventional Radiologist [facility] [place] Pager: [phone] Office/Referrals: [phone] [facility] Center: [phone] [email or web address] Dictated by: Annette Merlos MD @ 01/10/2024 [...] 01/09/2024 documented in this encounter Care Teams Motor Vehicle Parts Interpreter Relationship Specialty Start Date End Date Elsewhere, Pcp PCP - General 01/05/24 documented as of this encounter
--- OUTSIDE RECORDS SUMMARY | 2024-02-03 03:15 | XMS_ITS | Encounter Summary ---
Author Organization [facility] Address [address] [address] Phone Care Team Providers Care Rail Manager Name Role Phone Elsewhere, Pcp Primary Care [...] on filedocumented in this encounter Care Teams Rail Manager Relationship Specialty Start Date End Date Elsewhere, Pcp PCP - General 01/05/24 documented as of this encounter
--- OUTSIDE RECORDS SUMMARY | 2024-02-03 03:15 | XMS_ITS | Clinical Summary ---
Author Organization [email or web address] Address [address] [address] Phone Care Team Providers Care Gis Professor Name Role Phone Elsewhere, Pcp Primary Care Provider Unavailabl e Encounters Date Type Department Care Team Description 01/09/2024 3:00 PM CDT Ancillary Procedure [facility] [address] [place] [address] Annette Merlos MD Brain aneurysm [...] be obtained. Annette Merlos M.D. Neurointerventional Radiologist [facility] [place] Pager: [phone] Office/Referrals: [phone] [facility]: [phone] [email or web address] Dictated by: Annette Merlos MD @ [...] willbe obtained. Annette Merlos M.D. Neurointerventional Radiologist [facility] [place] Pager: [phone] Office/Referrals: [phone] [facility]: [phone] [email or web address] Dictated by: Annette Merlos MD @ 01/10/2024 10:03:29 Electronically Signed Annette Merlos MD [facility] MRI ORDERABLES Final Resu lt from Last 3 Months Insurance [id number] [place] [address] MEDICAID MEDICAL ASSISTANCE [facility] MEDICARE ADVANTAGE Care Teams Gis Professor Relationship Specialty Start Date End Date Elsewhere, Pcp PCP - General 01/05/24
--- OUTSIDE RECORDS SUMMARY | 2024-02-03 03:16 | XMS_ITS | Clinical Summary ---
Author Organization [facility] Address [address] [place] [address]. [place] [address] Care Team Providers Care Neurology Technologist Name Role Phone Brayden Du MD Unavailable Davonte Juan APRN REPAIR DEPARTMENT SUPERVISOR Primary Care Pr ovider Maya Alfaro MD Unavailable [phone] Kelsy Matthews Unavailable + (Fgs), [facility] nior Apts Asst Living Unavailable Davonte Juan APRN REPAIR DEPARTMENT SUPERVISOR Unavailable Allergies Active Allergy Reactions Criticality Noted Date Comments Propoxyphene Napsylate 09/19/2012 Propoxyphene 09/02/2014 Other reaction(s): Seizures Medications * This document contains information received from the source organization and may not represent a complete record from that organization. SUMAtriptan (IMITREX) 100 MG tabletIndicatio ns:History of migraine TAKE 1 TABLET BY MOUTH AT ONSET OF HEADACHE Dr Juan David Garcia DO, neurologist 9 tablet 0 015 Active Cyanocobalamin (VITAMIN B-12 PO) Take 1,000 mcg by mouth daily Active nicotine (COMMIT) 2 MG lozengeIndicati ons:Nicotine dependence with nicotine-induce d disorder, unspecified nicotine product type Place 1 lozenge (2 mg) inside cheek every hour as needed for smoking cessation 021 Active calcium carbonate (TUMS) 500 MG chewable tablet Take 1 tablet (500 mg) by mouth daily 021 Active polyethylene glycol (MIRALAX) 17 GM/Dose powderIndicatio ns:Constipation , unspecified constipation type Take 17 g by mouth daily 510 g Active Additional Information Patient taking differently:17 g OralDAILY PRN, Reported on 11/03/2020 acetaminophen (TYLENOL) 500 MG tabletIndicatio ns:Closed trimalleolar fracture of left ankle, initial encounter Take 2 tablets (1,000 mg) by mouth 3 times daily Active rotigotine (NEUPRO) 2 MG/24HR [address] 1 patch onto the skin daily Active phenytoin (DILANTIN) 100 MG ER capsule [...] mcg by mouth daily Active vitamin D3 (CHOLECALCIFERO L) 50 mcg (2000 units) tablet Take 1 [...] times daily. Active pregabalin (LYRICA) 300 MG capsuleIndicati ons:Chronic pain disorder Take 1 capsule (300 mg) by mouth 2 times daily. 60 capsule 5 024 Active camphor-menthol (DERMASARRA) 0.5-0.5 % external lotion Apply 1 applicator topically 2 times daily. Active hydrOXYzine HCl (ATARAX) 25 MG tablet Take 12.5 mg by mouth 3 times daily. And every day prn Active Suvorexant (BELSOMRA) 10 MG tabletIndicatio ns:Chronic pain disorder Take 1 tablet (10 mg) by mouth at bedtime. 30 tablet 3 024 Active Suvorexant (BELSOMRA) 20 MG tabletIndicatio ns:Chronic pain disorder Take 1 tablet (20 mg) by mouth at bedtime. 30 tablet 5 024 2023 Discontinued(R eorder (No AVS)) hydrOXYzine HCl (ATARAX) 25 MG tabletIndicatio ns:Pruritus Take 25 mg by mouth 2 times daily. 2023 Discontinued hydrOXYzine HCl (ATARAX) 25 MG tabletIndicatio ns:Acute Urticaria Take 25 mg by mouth 3 times daily. 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 Leo Gonsalez Ervin has no plan or code status on file. Discussed available resources and provided with information. Confirmed code status reflects current choices pending further ACP discussions. Confirmed/documented legally designated decision maker(s). 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 Last seizure 2009 Pt on dilantin and sees neurology at [facility] History of migraine 09/19/2012 Resolved Problems Problem Noted Date Diagnosed Date Resolved Date Polysubstance abuse 09/04/2013 07/25/19 15 Alcohol abuse, episodic drinking behavior 08/30/2013 07/24/2014 Health Alf 09/19/2012 09/12/2023 Overview (02/02/2013): State Tier Level: Tier 1 Status: N/A Service Center Supervisor: N/A See Letters for [facility] Care Plan Adjustment disorder with mix ed anxiety and depressed mood 09/19/2012 04/07/2016 Overview (09/19/2012): Dxed at 20 y0 Encounters Date Type Department Care Team Description 01/27/2024 Refill [facility] [address] [place] [phone] Davonte Juan APRN REPAIR DEPARTMENT SUPERVISOR Refill Request 01/24/2024 9:00 AM CDT Assisted Living Visit [address] [phone] Davonte Juan APRN CNP Fall, subsequent encounter (Primary Dx); Primary insomnia; Lymphedema 01/24/2024 Travel 01/21/2024 3:39 PM CDT - 01/21/2024 7:52 PM CDT Emergency [facility] Emergency Dept [address] [place] [address] Cheo Gao MD Injury of head, initial encounter; Injury of jaw, initial encounter Discharge Disposition: Home or Self Care 01/21/2024 Travel 01/20/2024 8:00 AM CDT Assisted Living Visit [facility] [address] [place] [phone] Davonte Juan APRN CNP ETOH abuse (Primary Dx); Lymphedema; Primary insomnia 01/20/2024 Travel 01/18/2024 3:49 PM CDT - 01/18/2024 11:16 PM CDT Emergency [facility] Emergency Dept [address] [place] [address] Harvinder Aguilera MD Alcohol use disorder; Drowsiness; Hypokalemia Discharge Disposition: Home or Self Care 01/18/2024 Travel 01/17/2024 7:30 AM CDT Assisted Living Visit [address] [phone] Davonte Juan APRN CNP Fall, subsequent encounter (Primary Dx); ETOH abuse; Intertrigo 01/17/2024 Travel 01/16/2024 Telephone [facility] [address] [place] [phone] Isma Michel RN Fall 01/06/2024 7:30 AM CDT Assisted Living Visit [address] [phone] Davonte Juan APRN CNP Fall, initial encounter (Primary Dx); Intertrigo; Hypertension, unspecified type 01/06/2024 Travel 01/03/2024 Telephone [facility] [address] [place] [phone] Ritu Dennis RN Patient Request 12/27/2023 Telephone [facility] [address] [place] [phone] Davonte Juan APRN CNP Prior Auth - Medication ( hydrOXYzine HCl (ATARAX) 25 MG tablet ) 12/23/2023 7:00 AM CDT Assisted Living Visit [address] [phone] Davonte Juan APRN CNP Decreased responsiveness (Primary Dx); Major depressive disorder, recurrent episode, moderate (H); Lymphedema 12/23/2023 Travel 12/20/[address] [phone] Davonte Juan APRN CNP Prior Auth - Medication (hydrOXYzine HCl (ATARAX) 25 MG tablet) 12/13/[address] [phone] Davonte Juan APRN CNP 12/06/2023 8:30 AM CDT Assisted Living Visit [address] [phone] Davonte Juan APRN CNP Lymphedema (Primary Dx); Hypertension, unspecified type; Primary insomnia 12/06/2023 Travel 12/02/[address] [phone] Davonte Juan APRN CNP 12/01/2023 Orders Only [address] [phone] Davonte Juan APRN CNP DIAGNOSIS NOT YET DEFINED (Primary Dx) 11/23/[address] [phone] Katie Chicas RN Dysuria 11/18/2023 8:30 AM CDT Assisted Living Visit [address] [phone] Davonte Juan APRN CNP Left hemiparesis (H) (Primary Dx); Lymphedema; Dermatitis 11/18/2023 Travel 11/17/[address] [phone] Ritu Dennis, RN Refill Request 11/17/[address] [phone] Ritu Dennis RN Refill Request 11/15/2023 8:00 AM CDT Assisted Living Visit [address] [phone] Davonte Juan APRN CNP Hypertension, unspecified type (Primary Dx); Lymphedema; Left hemiparesis (H); Chemical dependency (H); Major depressive disorder, recurrent episode, moderate (H); Seizure disorder (H); Idiopathic postprandial hypoglycemia; ACP (advance care planning) 11/15/2023 Travel 11/15/2023 Documentation Only [address] [phone] Kelsy Matthews Geriatrics Tracker from Last 3 [...] School Help Needed Not on file 12/28 Comments No Sex and Gender Information Value Date Recorded Sex Assigned at Female 02/28/2021 1:24 PM WAVE SOLDER OFFBEARER Legal Sex Female 3:43 AM WAVE SOLDER OFFBEARER Gender Identity Female 02/28/2021 1:23 PM WAVE SOLDER OFFBEARER Sexual Orientation Straight 02/28/2021 1: 20 PM WAVE SOLDER OFFBEARER Occupation Industry Job Start Date Job End Date Not on file Not on file Not on file Not on file Last Filed Vital Signs Vital Sign Reading Time Taken Comments Blood Pressure 108/67 01/24/2024 9:32 AM CDT Pulse 71 01/24/2024 9:32 AM CDT Temperature 37.7 ??C (99.9 ??F) 01/21/2024 3:43 PM CD T Respiratory Rate 16 01/24/2024 9:32 AM CDT Oxygen Saturation 95% 01/24/2024 9:32 AM CDT Inhaled Oxygen Concentration - - Weight 83.9 kg (185 lb) 01/24/2024 9:32 AM CDT Height 162.6 cm (5' 4) 01/21/2024 3:43 PM CDT Body Mass Index 31.76 01/21/2024 3:43 PM CDT Plan of Treatment Health Maintenance Due [...] , 02/16/2021, 12/10/2019, Additional history exists BMP 01/20/2025 01/21/2024, 12/27, 08/03/2023, Additional history exists GLUCOSE 01/22/2027 01/23/2024, 12/27, 01/18/2024, Additional history exists ADVANCE CARE PLANNING 11/14/2028 [...] this topic Medical Devices Implanted Type Area Composing Machine Operator Device Identifier Shelf Expiration Date Model / Serial / Lot Imp Scr Syn Lcp Dist 2.7x12mm Self Tap Ss 202.212 - [id number] Implanted:Qty: 1 on 10/24/2020 by Quentin Pritchett MD at [facility] Metallic Hardware/An chor Left: Ankle SYNTHES-STRATEC 202.212 / / [id number] 21 Imp Scr Syn Lcp Dist 2.7x14mm Self Tap Ss 202.214 - [id number] Implanted:Qty: 1 on 10/24/2020 by Quentin Pritchett MD at [facility] Metallic Hardware/An chor Left: Ankle SYNTHES-STRATEC 202.214 / / [id number] 21 Imp Scr Syn Lcp Dist 2.7x16mm Self Tap Ss 202.216 - [id number] Implanted:Qty: 3 on 10/24/2020 by Quentin Pritchett MD at [facility] Metallic Hardware/An chor Left: Ankle SYNTHES-STRATEC 202.216 / / [id number] 21 Imp Scr Syn Cortex 2.7x32mm Self Tap Ss 202.832 - [id number] Implanted:Qty: 1 on 10/24/2020 by Quentin Pritchett MD at [facility] Metallic Hardware/An chor Left: Ankle SYNTHES-STRATEC 202.832 / / [id number] L2021 Imp Scr Syn 3.5x12mm Locking W/Stardrive Ss 212.102 - [id number] Implanted:Qty: 2 on 10/24/2020 by Quentin Pritchett MD at [facility] Metallic Hardware/An chor Left: Ankle SYNTHES-STRATEC 212.102 / / [id number] L2021 Imp Scr Syn Cortex 3.5x16mm Self Tap Ss 204.816 - [id number] Implanted:Qty: 1 on 10/24/2020 by Quentin Pritchett MD at [facility] Metallic Hardware/An chor Left: Ankle SYNTHES-STRATEC 204.816 / / [id number] L2021 Imp Scr Syn Cortex 3.5x28mm Self Tap Ss 204.828 - [id number] Implanted:Qty: 1 on 10/24/2020 by Quentin Pritchett MD at [facility] Metallic Hardware/An chor Left: Ankle SYNTHES-STRATEC 204.828 / / [id number] L2021 Imp Scr Syn Cortex 3.5x38mm Self Tap Ss 204.838 - [id number] Implanted:Qty: 1 on 10/24/2020 by Quentin Pritchett MD at [facility] Metallic Hardware/An chor Left: Ankle SYNTHES-STRATEC 204.838 / / [id number] L2021 Imp Scr Syn Can 4.0x40mm Long Thrd Ss 207.740 - [id number] Implanted:Qty: 1 on 10/24/2020 by Quentin Pritchett MD at [facility] Metallic Hardware/An chor Left: Ankle SYNTHES-STRATEC 207.740 / / [id number] L2021 Imp Wire Margarita 0.045x4 78.2020 - [id number] Implanted:Qty: 1 on 10/24/2020 by Quentin Pritchett MD at [facility] Wire Left: Ankle G SOURCE 78.202 / / 4.0mm Ti Locking Screww/T25 Implanted:Qty: 1 on 01/16/2014 by Bayron Can MD at [facility] Left: Humerus SYNTHES 08/27/2019 04.005.4 44S / / [id number] 4.5mm Ti Multiloc Screw 42mm Implanted:Qty: 1 on 01/16/2014 by Bayron Can MD at [facility] Left: Humerus SYNTHES 03/28/2022 04.019.0 42S / / [id number] 4.5mm Ti Mulitloc Screw 38mm Implanted:Qty: 1 on 01/16/2014 by Bayron Can MD at [facility] Left: Humerus SYNTHES 02/25/2022 04.019.0 38S / / [id number] 4.0mm Ti Locking Screw 24mm Implanted:Qty: 1 on 01/16/2014 by Bayron Can MD at [facility] Left: Humerus SYNTHES 08/26/2022 04.005.4 14S / / [id number] 4.0mm Ti Locking Screw 26mm Implanted:Qty: 1 on 01/16/2014 by Bayron Can MD at [facility] Left: Humerus SYNTHES 12/26/2021 04.005.4 16S / / [id number] Ti Multiloc End Cap Implanted:Qty: 1 on 01/16/2014 by Bayron Can MD at [facility] Left: Humerus SYNTHES 11/26/2022 04.019.0 00S / / [id number] 4.5mmti Multiloc Screw 38mm Implanted:Qty: 1 on 01/16/2014 by Bayron Can MD at [facility] Left: Humerus SYNTHES 02/25/2023 04.019.0 38S / / [id number] 3.5mm Lcp Hook Plate Implanted:Qty: 1 on 10/24/2020 by Quentin Pritchett MD at [facility] Left: Ankle SYNTHES 02.113.1 8001 [id number] 2.7mm/3.5mm Lcp Posterolateral Distal Fibula Plates Implanted:Qty: 1 on 10/24/2020 by Quentin Pritchett MD at [facility] Left: Ankle SYNTHES 02.112.1 8001 [id number] Procedures Procedure Name Priority Date/Time Associated Diagnosis Comments BASIC METABOLIC PANEL (OUTREACH) Routine 01/23/2024 12:10 PM CDT Essential (primary) hypertension TRIP CHARGE - LAB ONLY Routine 01/23/2024 12:10 PM CDT Essential (primary) hypertension BASIC METABOLIC PANEL NO GLUCOSE (OUTREACH) Routine 01/23/2024 12:10 PM CDT Essential (primary) hypertension GLUCOSE (OUTREACH) Routine 01/23/2024 12 :10 PM CDT Essential (primary) hypertension AMMONIA STAT 01/21/2024 5:[address] HEAD W/O CONTRAST STAT 01/21/2024 5:[address] CERVICAL SPINE W/O CONTRAST STAT 01/21/2024 5:32 PM CDT CBC WITH PLATELETS & DIFFERENTIAL STAT 01/21/2024 4:29 PM CDT RBC AND PLATELET MORPHOLOGY STAT 01/21/2024 4:29 PM CDT CBC WITH PLATELETS AND DIFFERENTIAL STAT 01/21/2024 4:29 PM CDT ETHYL ALCOHOL LEVEL STAT 01/21/2024 4 :29 PM CDT MAGNESIUM STAT 01/21/2024 4:29 PM CDT COMPREHENSIVE METABOLIC PANEL STAT 01/21/2024 4:[address] HEAD W/O CONTRAST STAT 01/18/2024 5:36 PM CDT EKG 12-LEAD, TRACING ONLY STAT 01/18/2024 5:33 PM CDT AMMONIA STAT 01/18/2024 4:45 PM CDT CBC WITH PLATELETS & DIFFERENTIAL STAT 01/18/2024 4:01 PM CDT MAGNESIUM STAT 01/18/2024 4:01 PM CDT CBC WITH PLATELETS AND DIFFERENTIAL STAT 01/18/2024 4:01 PM CDT ETHYL ALCOHOL LEVEL STAT 01/18/2024 4 :01 PM CDT INR STAT 01/18/2024 4:01 PM CDT COMPREHENSIVE METABOLIC PANEL STAT 01/18/2024 4:01 PM CDT EXTRA BLOOD BANK PURPLE TOP TUBE STAT 01/18/2024 4:01 PM CDT EXTRA BLOOD BANK PURPLE TOP TUBE STAT 01/18/2024 4:01 PM CDT EXTRA PURPLE TOP TUBE STAT 01/18/2024 4:01 PM CDT EXTRA GREEN TOP (LITHIUM HEPARIN) TUBE STAT 01/18/2024 4:01 PM CDT EXTRA RED TOP TUBE STAT 01/18/2024 4: 01 PM CDT EXTRA BLUE TOP TUBE STAT 01/18/2024 4 :01 PM CDT EXTRA TUBE STAT 01/18/2024 4:01 PM CDT BASIC METABOLIC PANEL (OUTREACH) Routine 01/09/2024 10:04 AM CDT Edema, unspecified TRIP CHARGE - LAB ONLY Routine 01/09/2024 10:04 AM CDT Edema, unspecified BASIC METABOLIC PANEL NO GLUCOSE (OUTREACH) Routine 01/09/2024 10:04 AM CDT Edema, unspecified GLUCOSE (OUTREACH) Routine 01/09/2024 10 :04 AM CDT Edema, unspecified HEMOGLOBIN Routine 01/09/2024 10:04 AM CDT Edema, unspecified MA CERTIFICATION RN FLIGHT PATIENT Routine 12/01/2023 DIAGNOSIS NOT YET DEFINED [...] Routine 11/10/2023 6:33 AM CDT Hypoglycemia, unspecified LIPID PANEL (BFP) Routine 02/24/2021 3:3 5 PM WAVE SOLDER OFFBEARER Mixed hyperlipidemia MA DIAGNOSTIC BILATERAL W/ JESSE Routine 12/09/2017 THINPREP PAP RFLX HPV MRNA E6/E7 (QUEST) Routine 03/04/2017 3:13 PM WAVE SOLDER OFFBEARER Encounter for gynecological examination without abnormal finding HEPATITIS C ANTIBODY Routine 04/07/2016 3:32 PM WAVE SOLDER OFFBEARER Need for hepatitis C screening test DRUG ABUSE SCREEN 8 URINE (UR) STAT 01/26/2006 2:35 PM WAVE SOLDER OFFBEARER from Last 3 Months or Most Recently Relevant to Health Maintenance Results * Trip Charge - LAB ONLY (01/23/2024 12:10 PM CDT) Only the most recent of4 resultswithin the time period is included. Other TOPOGRAPHY UNKNOWN / Unknown Billing only / Unknown 01/23/2024 12:10 PM CDT 01/23/2024 2:13 PM CDT Davonte Juan TAIL RIPPER REPAIR DEPARTMENT SUPERVISOR LAB CHARGE PERFO RMABLES Final Result [facility] [address] [address], [facility] * Basic Metabolic Panel No Glucose (OUTREACH) (01/23/2024 12:10 PM CDT) Only the most recent of3 resultswithin the time period is included. Sodium 136 135 - 145 mmol/L 01/23/2024 7:23 PM CDT [facility] Potassium 4.3 3.4 - 5.3 mmol/L 01/23/2024 7:23 PM CDT [facility] Chloride 98 98 - 107 mmol/L 01/23/2024 7:23 PM CDT [facility] Carbon Dioxide (CO2) 28 22 - 29 mmol/L 01/23/2024 7:23 PM CDT [facility] Anion Gap 10 7 - 15 mmol/L 01/23/2024 7:23 PM CDT [facility] Urea Nitrogen 14.4 8.0 - 23.0 mg/dL 01/23/2024 7:23 PM CDT [facility] Creatinine 0.72 0.51 - 0.95 mg/dL 01/23/2024 7:23 PM CDT [facility] GFR Estimate >90 >60 mL/min/1.7 3m2 01/23/2024 7:23 PM CDT [facility] Calcium 9.0 8.8 - 10.4 mg/dL 01/23/2024 7:23 PM CDT [facility] Comment:Reference intervals for this test were updated on 10/11/2023 to reflect our healthy population more accurately. There may be differences in the flagging of prior results with similar values performed with this method. Those prior results can be interpreted in the context of the updated reference intervals. Blood STRUCTURE OF LEFT UPPER LIMB / Unknown Venipuncture / Unknown 01/23/2024 12:10 PM CDT 01/23/2024 2:13 PM CDT Davonte Juan APRN REPAIR DEPARTMENT SUPERVISOR LAB - BLOOD ORDE ALAN Final Result [facility] [address] [facility], [address] [place] [address], [facility] * Glucose (OUTREACH) (01/23/2024 12:10 PM CDT) Only the most recent of3 resultswithin the time period is included. Glucose 80 70 - 99 mg/dL 01/23/2024 7:09 PM CDT [facility] Blood STRUCTURE OF LEFT UPPER LIMB / Unknown Venipuncture / Unknown 01/23/2024 12:10 PM CDT 01/23/2024 2:13 PM CDT us Davonte Juan APRN REPAIR DEPARTMENT SUPERVISOR LAB - BLOOD ORDE ALAN Final Result [facility]ORATORY [facility] [address] [facility], [address] [place] [address] * Ammonia (01/21/2024 5:48 PM CDT) Only the most recent of2 resultswithin the time period is included. Ammonia 20 11 - 51 umol/L 01/21/2024 6:12 PM CDT LABORATORY Blood STRUCTURE OF RIGHT UPPER LIMB / Unknown Venipuncture / Unknown 01/21/2024 5:48 PM CDT 01/21/2024 5:53 PM CDT us Cheo Gao MD LAB - BLOOD ORDERABLES Final Result LABORATORY [facility] [address] Lab (1st floor, no room number) [place] [address] * CT Head w/o Contrast (01/21/2024 5:33 PM CDT) Only the most recent of2 resultswithin the time period is included. Anatomical Region Laterality Modality Head, SUBRAD CT NEURO, SUBRA D CT NEURO, UMP CT NEURO, RAD CT Computed Tomography 01/21/2024 5:33 PM CDT Impressions 01/21/2024 6:24 PM CDT IMPRESSION: HEAD CT: 1. ??No acute intracranial process. 2. ??Chronic changes and postsurgical changes as above. CERVICAL SPINE CT: 1. ??No CT evidence for acute fracture or post traumatic subluxation. Narrative 01/21/2024 6:24 PM CDT EXAM: CT HEAD W/O CONTRAST, CT CERVICAL SPINE W/O CONTRAST LOCATION: [facility] DATE: 01/21/2024 INDICATION: fall, left forehead hematoma, alcohol use COMPARISON: January 18, 2024 TECHNIQUE: 1) Routine CT Head without IV contrast. Multiplanar reformats. Dose reduction techniques were used. 2) Routine CT Cervical Spine without IV contrast. Multiplanar reformats. Dose reduction techniques were used. FINDINGS: HEAD CT: INTRACRANIAL CONTENTS: Stable postsurgical change of the right frontal lobe and prior left internal carotid artery aneurysm coiling. Artifact from embolization coil mass mildly limits evaluation to the level of the suprasellar cistern. Unchanged postsurgical right frontal lobe encephalomalacia. Unchanged encephalomalacia in the anterior inferior left parasagittal frontal lobe. No intracranial hemorrhage, extraaxial collection, or mass effect. ??No CT evidence of acute infarct. Mild presumed chronic small vessel ischemic changes. Mild generalized volume loss. No hydrocephalus. VISUALIZED ORBITS/SINUSES/MASTOIDS: No intraorbital abnormality. Partial opacification of the lateral left sphenoid sinus. No middle ear or mastoid effusion. BONES/SOFT TISSUES: [Scalp soft tissue hematoma. No calvarial fracture. CERVICAL SPINE CT: VERTEBRA: Reversal normal cervical lordosis. Grade 1 anterolisthesis C2 on C3 measuring 2 mm. Grade 1 listhesis C3 on C4 measuring 2 mm. Grade 1 anterolisthesis C4 on C5 measuring 2 mm. Solid-appearing anterior circulation interbody fusion C5- C7. No hardware complication. No fracture or posttraumatic subluxation. CANAL/FORAMINA: No high-grade spinal canal stenosis. Osseous foraminal stenosis is moderate to severe on the left at C2-3 and likely moderate at C3-4 and C4-5. PARASPINAL: Secretions in the esophagus could be seen with reflux disease or esophageal dysmotility Visualized lung etienne are clear. Procedure Note Delmi Herrera MD - 01/21/2024 EXAM: CT HEAD W/O CONTRAST, CT CERVICAL SPINE W/O CONTRAST LOCATION: [facility] DATE: 01/21/2024 INDICATION: fall, left forehead hematoma, alcohol use COMPARISON: January 18, 2024 TECHNIQUE: 1) Routine CT Head without IV contrast. Multiplanar reformats. Dosereduction techniques were used. 2) Routine CT Cervical Spine without IV contrast. Multiplanar reformats.Dose reduction techniques were used. FINDINGS: HEAD CT: INTRACRANIAL CONTENTS: Stable postsurgical change of the right frontallobe and prior left internal carotid artery aneurysm coiling. Artifactfrom embolization coil mass mildly limits evaluation to the level of thesuprasellar cistern. Unchanged postsurgical right frontal lobe encephalomalacia. Unchangedencephalomalacia in the anterior inferior left parasagittal frontal lobe.No intracranial hemorrhage, extraaxial collection, or mass effect. No CTevidence of acute infarct. Mild presumed chronic small vessel ischemic changes. Mild generalized volume loss. Nohydrocephalus. VISUALIZED ORBITS/SINUSES/MASTOIDS: No intraorbital abnormality. Partialopacification of the lateral left sphenoid sinus. No middle ear or mastoideffusion. BONES/SOFT TISSUES: [Scalp soft tissue hematoma. No calvarial fracture. CERVICAL SPINE CT: VERTEBRA: Reversal normal cervical lordosis. Grade 1 anterolisthesis C2 onC3 measuring 2 mm. Grade 1 listhesis C3 on C4 measuring 2 mm. Grade 1anterolisthesis C4 on C5 measuring 2 mm. Solid-appearing anteriorcirculation interbody fusion C5- C7. No hardware complication. No fracture or posttraumatic subluxation. CANAL/FORAMINA: No high-grade spinal canal stenosis. Osseous foraminalstenosis is moderate to severe on the left at C2-3 and likely moderate atC3-4 and C4-5. PARASPINAL: Secretions in the esophagus could be seen with reflux diseaseor esophageal dysmotility Visualized lung etienne are clear. IMPRESSION: HEAD CT: 1. No acute intracranial process. 2. Chronic changes and postsurgical changes as above. CERVICAL SPINE CT: 1. No CT evidence for acute fracture or post traumatic subluxation. us Cheo Gao MD IMG CT ORDERABLES Final Resu lt * CT Cervical Spine w/o Contrast (01/21/2024 5:32 PM CDT) Anatomical Region Laterality Modality Spine, SUBRAD CT NEURO, SUBR AD CT NEURO, UMP CT SPINE, RAD CT Computed Tomography 01/21/2024 5:32 PM CDT Impressions 01/21/2024 6:24 PM CDT IMPRESSION: HEAD CT: 1. ??No acute intracranial process. 2. ??Chronic changes and postsurgical changes as above. CERVICAL SPINE CT: 1. ??No CT evidence for acute fracture or post traumatic subluxation. Narrative 01/21/2024 6:24 PM CDT EXAM: CT HEAD W/O CONTRAST, CT CERVICAL SPINE W/O CONTRAST LOCATION: [facility] DATE: 01/21/2024 INDICATION: fall, left forehead hematoma, alcohol use COMPARISON: January 18, 2024 TECHNIQUE: 1) Routine CT Head without IV contrast. Multiplanar reformats. Dose reduction techniques were used. 2) Routine CT Cervical Spine without IV contrast. Multiplanar reformats. Dose reduction techniques were used. FINDINGS: HEAD CT: INTRACRANIAL CONTENTS: Stable postsurgical change of the right frontal lobe and prior left internal carotid artery aneurysm coiling. Artifact from embolization coil mass mildly limits evaluation to the level of the suprasellar cistern. Unchanged postsurgical right frontal lobe encephalomalacia. Unchanged encephalomalacia in the anterior inferior left parasagittal frontal lobe. No intracranial hemorrhage, extraaxial collection, or mass effect. ??No CT evidence of acute infarct. Mild presumed chronic small vessel ischemic changes. Mild generalized volume loss. No hydrocephalus. VISUALIZED ORBITS/SINUSES/MASTOIDS: No intraorbital abnormality. Partial opacification of the lateral left sphenoid sinus. No middle ear or mastoid effusion. BONES/SOFT TISSUES: [Scalp soft tissue hematoma. No calvarial fracture. CERVICAL SPINE CT: VERTEBRA: Reversal normal cervical lordosis. Grade 1 anterolisthesis C2 on C3 measuring 2 mm. Grade 1 listhesis C3 on C4 measuring 2 mm. Grade 1 anterolisthesis C4 on C5 measuring 2 mm. Solid-appearing anterior circulation interbody fusion C5- C7. No hardware complication. No fracture or posttraumatic subluxation. CANAL/FORAMINA: No high-grade spinal canal stenosis. Osseous foraminal stenosis is moderate to severe on the left at C2-3 and likely moderate at C3-4 and C4-5. PARASPINAL: Secretions in the esophagus could be seen with reflux disease or esophageal dysmotility Visualized lung etienne are clear. Procedure Note Delmi Herrera MD - 01/21/2024 EXAM: CT HEAD W/O CONTRAST, CT CERVICAL SPINE W/O CONTRAST LOCATION: [facility] DATE: 01/21/2024 INDICATION: fall, left forehead hematoma, alcohol use COMPARISON: January 18, 2024 TECHNIQUE: 1) Routine CT Head without IV contrast. Multiplanar reformats. Dosereduction techniques were used. 2) Routine CT Cervical Spine without IV contrast. Multiplanar reformats.Dose reduction techniques were used. FINDINGS: HEAD CT: INTRACRANIAL CONTENTS: Stable postsurgical change of the right frontallobe and prior left internal carotid artery aneurysm coiling. Artifactfrom embolization coil mass mildly limits evaluation to the level of thesuprasellar cistern. Unchanged postsurgical right frontal lobe encephalomalacia. Unchangedencephalomalacia in the anterior inferior left parasagittal frontal lobe.No intracranial hemorrhage, extraaxial collection, or mass effect. No CTevidence of acute infarct. Mild presumed chronic small vessel ischemic changes. Mild generalized volume loss. Nohydrocephalus. VISUALIZED ORBITS/SINUSES/MASTOIDS: No intraorbital abnormality. Partialopacification of the lateral left sphenoid sinus. No middle ear or mastoideffusion. BONES/SOFT TISSUES: [Scalp soft tissue hematoma. No calvarial fracture. CERVICAL SPINE CT: VERTEBRA: Reversal normal cervical lordosis. Grade 1 anterolisthesis C2 onC3 measuring 2 mm. Grade 1 listhesis C3 on C4 measuring 2 mm. Grade 1anterolisthesis C4 on C5 measuring 2 mm. Solid-appearing anteriorcirculation interbody fusion C5- C7. No hardware complication. No fracture or posttraumatic subluxation. CANAL/FORAMINA: No high-grade spinal canal stenosis. Osseous foraminalstenosis is moderate to severe on the left at C2-3 and likely moderate atC3-4 and C4-5. PARASPINAL: Secretions in the esophagus could be seen with reflux diseaseor esophageal dysmotility Visualized lung etienne are clear. IMPRESSION: HEAD CT: 1. No acute intracranial process. 2. Chronic changes and postsurgical changes as above. CERVICAL SPINE CT: 1. No CT evidence for acute fracture or post traumatic subluxation. us Cheo Gao MD IMG CT ORDERABLES Final Resu lt * (ABNORMAL) RBC and Platelet Morphology (01/21/2024 4:29 PM CDT) RBC Morphology Confirmed RBC Indices 01/21/2024 6:06 PM CDT [facility] Platelet Assessment Automated Count Confirmed. Platelet morphology is normal. Automated Count Confirmed. Platelet morphology is normal. JANICE 01/21/2024 6:06 PM CDT [facility] Elliptocytes Slight(A) None Seen JANICE 01/21/2024 6:06 PM CDT [facility] Stomatocytes Slight(A) None Seen JANICE 01/21/2024 6:06 PM CDT [facility] Blood BLOOD SPECIMEN / Unknown Venipuncture / Unknown 01/21/2024 4:29 PM CDT 01/21/2024 4:39 PM CDT us Cheo Gao MD LAB - BLOOD ORDERABLES Final Result [facility] [address] Lab (1st floor, no room number) [place] [address], [facility] * (ABNORMAL) CBC with platelets and differential (01/21/2024 4:29 PM CDT) Only the most recent of2 resultswithin the time period is included. Pathologist [facility] WBC Count 7.8 4.0 - 11.0 10e3/uL 01/21/2024 6:06 PM CDT [facility] RBC Count 4.14 3.80 - 5.20 10e6/uL 01/21/2024 6:06 PM CDT [facility] Hemoglobin 9.7(L) 11.7 - 15.7 g/dL 01/21/2024 6:06 PM CDT [facility] Hematocrit 31.4(L) 35.0 - 47.0 % 01/21/2024 6:06 PM CDT [facility] MCV 76(L) 78 - 100 fL 01/21/2024 6:06 PM CDT [facility] MCH 23.4(L) 26.5 - 33.0 pg 01/21/2024 6:06 PM CDT [facility] MCHC 30.9(L) 31.5 - 36.5 g/dL 01/21/2024 6:06 PM CDT [facility] RDW 18.7(H) 10.0 - 15.0 % 01/21/2024 6:06 PM CDT [facility] Platelet Count 169 150 - 450 10e3/uL 01/21/2024 6:06 PM CDT [facility] % Neutrophils 65 % 01/21/2024 6:06 PM CDT [facility] % Lymphocytes 19 % 01/21/2024 6:06 PM CDT [facility] % Monocytes 8 % 01/21/2024 6:06 PM CDT [facility] % Eosinophils 7 % 01/21/2024 6:06 PM CDT [facility] % Basophils 1 % 01/21/2024 6:06 PM CDT [facility] % Immature Granulocytes 0 % 01/21/2024 6:06 PM CDT [facility] NRBCs per 100 WBC 0 <1 /100 024 6:06 PM CDT [facility] Absolute Neutrophils 5.0 1.6 - 8.3 10e3/uL 01/21/2024 6:06 PM CDT [facility] Absolute Lymphocytes 1.5 0.8 - 5.3 10e3/uL 01/21/2024 6:06 PM CDT [facility] Absolute Monocytes 0.7 0.0 - 1.3 10e3/uL 01/21/2024 6:06 PM CDT [facility] Absolute Eosinophils 0.5 0.0 - 0.7 10e3/uL 01/21/2024 6:06 PM CDT [facility] Absolute Basophils 0.0 0.0 - 0.2 10e3/uL 01/21/2024 6:06 PM CDT [facility] Absolute Immature Granulocytes 0.0 <=0.4 10e3/uL 01/21/2024 6:06 PM CDT [facility] Absolute NRBCs 0.0 10e3/uL 01/21/2024 6:06 PM CDT [facility] Blood BLOOD SPECIMEN / Unknown Venipuncture / Unknown 01/21/2024 4:29 PM CDT 01/21/2024 4:39 PM CDT us Cheo Gao MD LAB - BLOOD ORDERABLES Final Result [facility] [address] [facility] (1st floor, no room number) [place] [id number] * Magnesium (01/21/2024 4:29 PM CDT) Only the most recent of2 resultswithin the time period is included. Magnesium 1.9 1.7 - 2.3 mg/dL 01/21/2024 5:01 PM CDT LABORATORY Blood BLOOD SPECIMEN / Unknown Venipuncture / Unknown 01/21/2024 4:29 PM CDT 01/21/2024 4:39 PM CDT Cheo Gao MD LAB - BLOOD ORDERABLES Final Result LABORATORY [facility] [address] [facility] Lab (1st floor, no room number) [place] [id number] [place] [address] * (ABNORMAL) Comprehensive metabolic panel (01/21/2024 4:29 PM CDT) Only the most recent of2 resultswithin the time period is included. Sodium 139 135 - 145 mmol/L 01/21/2024 5:36 PM CDT LABORATORY Potassium 4.0 3.4 - 5.3 mmol/L 01/21/2024 5:36 PM CDT LABORATORY Carbon Dioxide (CO2) 25 22 - 29 mmol/L 01/21/2024 5:36 PM CDT LABORATORY Anion Gap 17(H) 7 - 15 mmol/L 01/21/2024 5:36 PM CDT LABORATORY Urea Nitrogen 12.8 8.0 - 23.0 mg/dL 01/21/2024 5:36 PM CDT LABORATORY Creatinine 0.67 0.51 - 0.95 mg/dL 01/21/2024 5:36 PM CDT LABORATORY GFR Estimate >90 >60 mL/min/1.7 3m2 01/21/2024 5:36 PM CDT LABORATORY Comment:eGFR calculated us2020 CKD-EPI equation. Calcium 8.4(L) 8.8 - 10.4 mg/dL 01/21/2024 5:36 PM CDT [facility] Comment:Reference intervals for this test were updated on 10/11/2023 to reflect our healthy population more accurately. There may be differences in the flagging of prior results with similar values performed with this method. Those prior results can be interpreted in the context of the updated reference intervals. Chloride 97(L) 98 - 107 mmol/L 01/21/2024 5:36 PM CDT [facility] Glucose 97 70 - 99 mg/dL 01/21/2024 5:36 PM CDT [facility] Alkaline Phosphatase 209(H) 40 - 150 U/L 01/21/2024 5:36 PM CDT [facility] AST 26 0 - 45 U/L 01/21/2024 5:36 PM CDT [facility] ALT 20 0 - 50 U/L 01/21/2024 5:36 PM CDT [facility] Protein Total 7.0 6.4 - 8.3 g/dL 01/21/2024 5:36 PM CDT [facility] Albumin 3.8 3.5 - 5.2 g/dL 01/21/2024 5:36 PM CDT [facility] Bilirubin Total 0.2 <=1.2 mg/dL 01/21/2024 5:36 PM CDT [facility] Blood BLOOD SPECIMEN / Unknown Venipuncture / Unknown 01/21/2024 4:29 PM CDT 01/21/2024 4:39 PM CDT us Cheo Gao MD LAB - BLOOD ORDERABLES Final Result LABORATORY [facility] [address] [facility] Lab (1st floor, no room number) [place] [address], [facility] * Ethyl Alcohol Level (01/21/2024 4:29 PM CDT) Only the most recent of2 resultswithin the time period is included. Alcohol ethyl <0.01 <=0.01 g/dL 01/21/2024 5:01 PM CDT [facility] Blood BLOOD SPECIMEN / Unknown Venipuncture / Unknown 01/21/2024 4:29 PM CDT 01/21/2024 4:39 PM CDT us Cheo Gao MD LAB - BLOOD ORDERABLES Final Result LABORATORY [facility] [address] Lab (1st floor, no room number) [place] [address], [facility] * EKG 12-lead, tracing only (01/18/2024 5:33 PM CDT) Systolic Blood Pressure mmHg RADIOLOGY RESULTS Diastolic Blood Pressure mmHg RADIOLOGY RESULTS Ventricular Rate 86 BPM RAD IOLOGY RESULTS Atrial Rate 86 BPM RADIOLOG Y RESULTS MA Interval 148 ms RADIOLOG Y RESULTS QRS Duration 94 ms RADIOLO GY RESULTS QT 434 ms RADIOLOGY RESULTS QTc 519 ms RADIOLOGY RESULTS P [place] 42 degrees RADIOLOGY RESULTS R AXIS 54 degrees RADIOLOGY RESULTS T [place] 5 degrees RADIOLOGY RESULTS Interpretation ECG Sinus rhythm Possible Inferior infarct (cited on or before 07-Mar-2023) Prolonged QT Abnormal ECG When compared with ECG of 06-Jun-2023 11:14, Vent. rate has decreased by ??45 bpm Questionable change in QRS duration Unconfirmed report - interpretation of this ECG is computer generated - see medical record for final interpretation Confirmed by - EMERGENCY ROOM, PHYSICIAN ([id number]), advertising editor MARY SOLANO ([id number]) on 01/19/2024 6:51:53 AM RADIOLOGY RESULTS 01/18/2024 5:33 PM CDT 01/19/2024 6:51 AM CDT us Kvng Zhao APRN REPAIR DEPARTMENT SUPERVISOR ECG ORDERABLES Edited Result - Final RADIOLOGY RESULTS * Extra Blood Bank Purple Top Tube (01/18/2024 4:01 PM CDT) Only the most recent of2 resultswithin the time period is included. Hold Specimen [facility] 01/18/2024 5:16 PM CDT LABORATORY Blood BLOOD SPECIMEN / Unknown Venipuncture / Unknown 01/18/2024 4:01 PM CDT 01/18/2024 4:07 PM CDT Harvinder Aguilera MD LAB - BLOOD ORDERABLES Final Result [facility] [address] Lab (1st floor, no room number) [place] [id number] [place] [address] * Extra Purple Top Tube (01/18/2024 4:01 PM CDT) Hold Specimen [facility] 01/18/2024 5:16 PM CDT [facility] Blood BLOOD SPECIMEN / Unknown Venipuncture / Unknown 01/18/2024 4:01 PM CDT 01/18/2024 4:06 PM CDT Harvinder Aguilera MD LAB - BLOOD ORDERABLES Final Result [facility] [address] Lab (1st floor, no room number) [place] [address] * Extra Green Top ([place] Heparin) Tube (01/18/2024 4:01 PM CDT) Hold Specimen [facility] 01/18/2024 5:16 PM CDT [facility] Blood BLOOD SPECIMEN / Unknown Venipuncture / Unknown 01/18/2024 4:01 PM CDT 01/18/2024 4:07 PM CDT Harvinder Aguilera MD LAB - BLOOD ORDERABLES Final Result [facility] [address] Lab (1st floor, no room number) [place] [address] * Extra Red Top Tube (01/18/2024 4:01 PM CDT) Hold Specimen [facility] 01/18/2024 5:16 PM CDT [facility] Blood BLOOD SPECIMEN / Unknown Venipuncture / Unknown 01/18/2024 4:01 PM CDT 01/18/2024 4:07 PM CDT Harvinder Aguilera MD LAB - BLOOD ORDERABLES Final Result [facility] [address] Lab (1st floor, no room number) [address] * Extra Blue Top Tube (01/18/2024 4:01 PM CDT) Hold Specimen [facility] 01/18/2024 5:16 PM CDT [facility] Blood BLOOD SPECIMEN / Unknown Venipuncture / Unknown 01/18/2024 4:01 PM CDT 01/18/2024 4:06 PM CDT Harvinder Aguilera MD LAB - BLOOD ORDERABLES Final Result Performing Organization Address [facility]/ZIP Co de Phone Number [facility] [address] Lab (1st floor, no room number) [address] * (ABNORMAL) INR (01/18/2024 4:01 PM CDT) INR 1.30(H) 0.85 - 1.15 01/18/2024 4:40 PM CDT [facility] Blood BLOOD SPECIMEN / Unknown Venipuncture / Unknown 01/18/2024 4:01 PM CDT 01/18/2024 4:06 PM CDT Harvinder Aguilera MD LAB - BLOOD ORDERABLES Final Result [facility] [address] Lab (1st floor, no room number) [address] * (ABNORMAL) Hemoglobin (01/09/2024 10:04 AM CDT) Hemoglobin 10.5(L) 11.7 - 15.7 g/dL 01/09/2024 4:38 PM CDT [facility] Blood STRUCTURE OF LEFT UPPER LIMB / Unknown Venipuncture / Unknown 01/09/2024 10:04 AM CDT 01/09/2024 2:40 PM CDT Davonte Barahona Drake ALVES CNP LAB - BLOOD ORDMaykel PHILLIPS Final Result [facility] [place] [facility] Lab [address] [facility], [address] [address] * MD CERTIFICATION RN FLIGHT PATIENT (12/01/2023) Davonte Jun Juan APRN, CNP SPECIAL REPORTS Final Result * (ABNORMAL) UA with Microscopic (11/23/2023 4:00 [...] 11/23/2023 9:59 PM CDT [facility] Specific [place] Urine 1.013 1.003 - 1.035 11/23/2023 9:59 [...] 4:00 PM CDT 11/23/2023 6:18 PM CDT us Davonte Juan TAIL RIPPER REPAIR DEPARTMENT SUPERVISOR LAB - URINE ORDE ALAN Final Result [facility] Core Lab [address] [facility], [address] [address] * (ABNORMAL) Urine Culture (11/23/2023 4:00 PM CDT) [facility] Culture 10,000-50,000 CFU/mL Klebsiella pneumoniae(A) 11/25/2023 2:59 [...] pneumoniae Cefazolin JANICE <=4 ug/mL: Susceptible Comment:Cefazolin [place] C breakpoints are for the treatment of [...] JANICE <=1/19 ug/mL: Susceptible Davonte Juan APRN [facility] LAB - MICRO GENE RAL ORDERABLES Final Result Performing Organization Address City/[facility]/ZIP Co de Phone Number IDD LABORATORY [facility] Inf. Diseases Diag. Lab [address] [facility], [address] [place] [id number] [[email or web address]] * (ABNORMAL) Hemoglobin A1c (11/16/2023 6:18 AM CDT) Pathologist [facility] Hemoglobin A1C 5.8(H) <5.7 % 11/16/2023 12:08 PM CDT [facility] Comment: Normal <5.7% Prediabetes 5.7-6.4% ?? Diabetes 6.5% or higher Note: Adopted from ADA consensus guidelines. Blood STRUCTURE OF RIGHT UPPER LIMB / Unknown Venipuncture / Unknown 11/16/2023 6:18 AM CDT 11/16/2023 8:09 AM CDT Davonte Juan APRN [facility] LAB - BLOOD ORDE RABLES Final Result [facility] [place] [facility] Lab [address] [facility], [address] [place] [address] * (ABNORMAL) CBC with platelets (11/16/2023 [...] 6:18 AM CDT 11/16/2023 8:09 AM CDT us Davonte Juan APRN, CNP LAB - BLOOD ORDE RABLES Final Result Performing Organization Address City/[facility]/ZIP Co de Phone Number U LABORATORY [facility] [place] [facility] Lab [address] [facility], [address] [address] * Insulin level (11/10/2023 6:33 AM CDT) Insulin 5.7 2.6 - 24.9 uU/mL 11/10/2023 12:12 PM CDT [facility] Blood STRUCTURE OF LEFT HAND / Unknown Venipuncture / Unknown 11/10/2023 6:33 AM CDT 11/10/2023 9:14 AM CDT us Anette Valencia MD LAB - BLOOD ORDERABLES Final R esult [facility] [place] [facility] [address] [facility], [address] [place] [address] * (ABNORMAL) Lipid Panel ([facility]) (02/24/2021 3:35 PM WAVE SOLDER OFFBEARER) Cholesterol 307(A) 0 - 199 mg/dL [facility] Triglycerides 369(A) 0 - 149 mg/dL [facility] HDL Cholesterol 108 40 - 150 mg/dL [facility] LDL Cholesterol Direct 125 0 - 130 mg/dL [facility] Cholesterol/HDL Ratio 3 0 - 5 [facility] Blood 02/24/2021 3:35 PM WAVE SOLDER OFFBEARER us Alek Jones MD LAB - NON-[facility] LABS Final Result Performing Organization Address City/State/[facility] Co de Phone Number [facility] [address] [place] [address] [address] [place] [address] * MA Diagnostic Bilateral w/Jesse (12/09/2017) MAMMOGRAM Anatomical Region Laterality Modality Breast Bilateral Other Narrative 12/09/2017 [facility] Phone: [phone] * Fax: [phone] [address] [place] [address] Age: 62 Y Dept No.: [id number] LEO MUELLER : 1955 Chart # Gender: F Req. Phys: Alek Jones MD Clinic MRN: Clinic: [facility] Acc#: [id number] Exam: MAMMOGRAM SCREENING JESSE BILATERAL Exam Date: [...] Signed by: DORA Thank You for choosing [facility] Page 1 of 1 us Patient Reported IMG MAMMOGRAPHY ORDERABLES Miri l Result * ThinPrep Pap and HPV (mRNA E6/E7){HPV-REFLEX} (handsomexcutive) (03/04/2017 3:13 PM WAVE SOLDER OFFBEARER) Clinical History None given [facility] LMP SEE COMMENT [facility] Comment:OVER 8YRS AGO Last Pap Diagnosis 120,817 Q [facility] Prev Bx Dx NONE GIVEN [facility] Source Cervix [facility] Statement of Adequacy SEE COMMENT [facility] Comment: Satisfactory for evaluation. Endocervical/transformation zone component present. Descriptive Diagnosis SEE COMMENT [facility] Comment:Negative for intraep ithelial lesion or malignancy. Order Department Supervisor: SEE COMMENT [facility] Comment: ERP, CT(ASCP) CT Screening location: [address] ??[id number] Cervical swab (specimen) 03/04/2017 3:13 PM WAVE SOLDER OFFBEARER 03/05/2017 2:58 AM WAVE SOLDER OFFBEARER Narrative Resulting Agency Comment Performing Organization Information: ? [place] ? [facility] ? [address] [place] [address] ? Lars Calderon M.D. us Alek Jones MD LAB - NON-BEAKER NON- BLOOD Final Result [facility] [address] [place] [address] * Hepatits C antibody ([facility]) (04/07/2016 3:32 PM WAVE SOLDER OFFBEARER) HCV Antibody NON-REACTI VE NON-REACTI VE [facility] SIGNAL TO CUT OFF - [facility] 0.03 <1.00 [facility] Blood specimen (specimen) 04/07/2016 3:32 PM WAVE SOLDER OFFBEARER 04/08/2016 3:37 AM WAVE SOLDER OFFBEARER Narrative Resulting Agency Comment Performing Organization Information: ? [place] ? [facility] ? [address] [place] [address] ? Lars Calderon M.D. us Alek Jones MD LAB - BLOOD ORDERABLE S Final Result Performing Organization Address City/[facility] Co de Phone Number [facility] [address] [place] [address] * (ABNORMAL) Drug abuse screen 8 urine (UR) (01/26/2006 2:35 PM WAVE SOLDER OFFBEARER) Amphetamine Qual Urine Negative NEG MISYS Ethanol Qual Urine Negative NEG MISYS Opiates Qualitative Urine Positive(A) NEG MISYS PCP Qual Urine Negative NEG MISYS Benzodiazepine Qual Urine Negative NEG MISYS Barbiturates Qual Urine Negative NEG MISYS Cocaine Qual Urine Negative NEG MISYS Cannabinoids Qual Urine Negative NEG MISYS 01/26/2006 2:35 PM WAVE SOLDER OFFBEARER 01/26/2006 2:25 PM WAVE SOLDER OFFBEARER us Russell Trinidad MD LAB - URINE ORDERABL ES Final Result Performing Organization Address City/[facility]/ZIP Co de Phone Number MISYS from Last 3 Months or Most Recently Relevant to Health Maintenance 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 Insurance [facility] MEDICARE [place]ANT[place]ID [place] [facility] MEDICARE ADVANTAGE BCBS MEDICARE [place]ANT[place]ICAID [place] none (Work) [id number] [place] [address] Advance Directives For more information, please contact: [phone] * Full Code (Latest Code Status on [...] 5:45 PM 01/17/2014 4:33 PM Care Teams Neurology Technologist Relationship Specialty Start Date End Date Davonte Juan APRN CNP [address] [place] [address] PCP - General Family Medicine 11/15/23 Brayden Du MD [address] [place] [address] [id number] [place] [address] Neurology 05/06/22 Maya Alfaro MD [address] [place] [address] Internal Medicine 11/15/23 Kelsy Matthews [address] [place] [address] Geriatric Services Derrick Engineer 11/15/23 (Fgs), [facility] [address] [place] [phone] 11/15/23 Davonte Juan APRN REPAIR DEPARTMENT SUPERVISOR [address] [place] [address] Assigned PCP 11/18/23
--- OUTSIDE RECORDS SUMMARY | 2024-02-03 03:16 | XMS_ITS | Clinical Summary ---
Author Organization [facility] Address [place], [place] [address] Care Team Providers Care Beam Department Supervisor Name Role Phone Neelima Shukla DO Primary Care Provider [phone] Allergies Active Allergy Reactions Criticality Noted Date [...] Motorized Wheelchair. Length of need: 99 months. [place] [id number] Each 04/15/2022 Active omeprazole (PRILOSEC) 20 mg [...] status migrainosus 03/08/2003 Overview (05/27/2021): LW Onset: [id number] ; Migraine Without Aura Resolved Problems Problem [...] Date Type Department Care Team Description 01/16/2024 Orders Only [facility] Scanner 1 scan: (1-Ord) [facility], FACIAL BONES W/O CONTRAST, 01/16/2024 01/16/2024 Orders Only [facility] Scanner 1 scan: (1-Ord) [facility], CERVICAL SPINE WO CON, 01/16/2024 01/16/2024 Orders Only [facility] Scanner 1 scan: (1-Ord) [facility], HEAD/BRAIN WITHOUT CONTRAST, 01/16/2024 11/12/2023 Nurse Triage [facility] [address] [place] [address] Anette Valencia MD Concerns 11/12/2023 Nurse Triage [facility] [address] [place] [address] Chanda Enriquez, NANOTECHNOLOGIST Fall 11/10/2023 Orders Only [facility] Scanner 1 scan: (1-Ord) [facility], INSULIN, 11/10/2023 11/10/2023 Nurse Triage [address] [address] Anette Valencia MD Results 11/09/2023 11:15 AM CDT [facility] [address] [address] Anette Valencia MD Transitional Care Visit (Follow-up & TCU Discharge Summary) 11/09/2023 Orders Only [address] [address] Anette Valencia MD <No scans attached> 11/08/2023 Nurse Triage [address] [address] Anette Valencia MD Rash from Last 3 Months Immunizations Name Administration [...] 1 04/21/2023 Social Connections Answer Date Recorded Do you often feel lonely or isolated from those around you? 4 07/09/2023 Financial Resource Strain Answer Date R ecorded Difficulty of Paying Living Expenses 1 07/09/2023 Difficulty of Paying Living Expenses 2 07/09/2023 Food Insecurity Answer Date Recorded Do you worry your food will run out before you are able to buy more? 1 07/09/2023 Transportation Needs Answer Date Record ed Does lack of transportation keep you from medica l appointments? 2 07/09/2023 Does lack of transportation keep you from work, meetings or getting things that you need? 2 07/09/2023 Housing Stability Answer Date Recorded [...] Date Last Done Comments Fecal testing sDNA-FIT (Brady guard) for age 45-75 2002 Mammogram for age 45-75 2002 DEXA/DXA scan for age 65+ 2022 Tetanus booster 09/19/2022 09/19/2012, 08/2007, 01/04/[address] (for lung [...] exists Pneumococcal series for age 65+ Completed 11/16/202 2 Hepatitis C screening for ag e 18-79 Completed 05/13/2022 Procedures Procedure Name Priority Date/Time Associated Diagnosis Comments SCAN-CT INTERPRETATION 4 12:00 AM CDT SCAN-CT INTERPRETATION 4 12:00 AM CDT SCAN-CT INTERPRETATION 4 12:00 AM CDT SCAN-LABORATORY REPORT 4 12:00 AM CDT LIPID PANEL [place] 07/09/2023 4:43 PM CDT LC HCV ANTIBODY RFX TO QUANT PCR Routine 05/13/2022 3:36 PM B[facility]ET S[facility]TER Need for hepatitis C screening test CT CHEST ABDOMEN PELVIS W Routine 10/14/2021 1:13 PM CDT from Last 3 Months or Most Recently Relevant to Health Maintenance Results * SCAN-CT INTERPRETATION (01/16/2024 12:00 AM CDT) Only the most recent of3 resultswithin the time period is included. Anatomical Region Laterality Modality Other Scanner OTHER * SCAN-LABORATORY REPORT (11/10/2023 12:00 AM CDT) Scanner OTHER * (ABNORMAL) LIPID PANEL (07/09/2023 4:43 PM CDT) CHOLESTEROL,TOTAL 147 100 - 199 mg/dL 07/09/2023 7:43 PM CDT [facility] Comment: Cholesterol, Total Reference Ranges Desirable <200 mg/dL Borderline 200-239 mg/dL High >=240 mg/dL TRIGLYCERIDES 139 <150 mg/dL 07/09/2023 7:43 PM CDT [facility] HDL CHOLESTEROL 17(L) >40 mg/dL 7:43 PM CDT [facility] NON-HDL CHOLESTEROL 130 <145 mg/dl 07/09/2023 7:43 PM CDT [facility] CHOL/HDL RATIO 8.65(H) <4.50 07/09/2023 7:43 PM CDT [facility] LAB[facility]ATORY-[facility] LDL CHOLESTEROL 102 <=130 mg/dL 07/09/2023 7:43 PM CDT [facility] VLDL CHOLESTEROL 28 <=30 mg/dL 07/09/2023 7:43 PM CDT [facility] Blood BLOOD SPECIMEN / Unknown Non-Lab Venipuncture / Unknown 07/09/2023 4:43 PM CDT 07/09/2023 4:54 PM CDT Bennie TRACY CHEMISTRY [facility] [address] [place] [address], [place] * HCV ANTIBODY RFX TO QUANT PCR (05/13/2022 3:36 PM BASKET SORTER) HCV Ab Non Reactive Non Reactive 05/15/2022 10:06 PM [facility] Blood BLOOD SPECIMEN / Unknown Venipuncture / Unknown 05/13/2022 3:36 PM B[facility]ET SORTER 05/13/2022 3:36 PM [facility] Narrative [facility] - 05/15/2022 10:06 PM [facility] Performed at: ??[address] ??[id number] Statistical Methods Professor: Ramses Stanford MD, Phone: ??[phone] Neelima Shukla DO LABORATORY [facility]) [facility] [place] [address], [place] * CT CHEST ABDOMEN PELVIS W [...] EXAM: CT CHEST ABDOMEN PELVIS W LOCATION: [facility] DATE/TIME: 10/14/2021 1:13 PM INDICATION: [...] EXAM: CT CHEST ABDOMEN PELVIS W LOCATION: [facility] DATE/TIME: 10/14/2021 1:13 PM INDICATION: [...] Code Status Discussion: Reviewed Preferences Care Teams Beam Department Supervisor Relationship Specialty [place] [address] [place] [address] PCP - General Family Practice 02/22/22
--- OUTSIDE RECORDS SUMMARY | 2024-02-03 03:17 | XMS_ITS | Encounter Summary ---
Author Organization [facility] Address [address] [place] [address]. [place] [address] Care Team Providers Care Rand Tacker Name Role Phone Brayden Du MD Unavailable Davonte Juan APRN TURBO ELECTRIC OPERATOR Primary Care Pr ovider Maya Alfaro MD Unavailable [phone] Kelsy Matthews Unavailable + (Fgs), [facility] shanta Apts Asst Living Unavailable Davonte Juan APRN TURBO ELECTRIC OPERATOR Unavailable Reason for Visit * Reason Comments Fall Encounter Details Date Type Department Care Team (Late st Contact Info) Description 01/21/2024 3:39 PM CDT - 01/21/2024 7:52 PM CDT Emergency [facility] Emergency Dept [address] [place] [address] Cheo Gao MD Injury of head, initial encounter; Injury of jaw, initial encounter Discharge Disposition: Home or Self Care Social [...] Assigned at Female 02/28/2021 1:24 PM FRONT LINE SUPERVISOR Legal Sex Female 3:43 AM FRONT LINE SUPERVISOR Gender Identity Female 02/28/2021 1:23 PM FRONT LINE SUPERVISOR Sexual Orientation Straight 02/28/2021 1: 20 PM FRONT LINE SUPERVISOR Occupation Industry Job Start Date Job End Date Not on file Not on file Not on file Not on file documented as of this encounter Last Filed Vital Signs Vital Sign Reading Time Taken Comments Blood Pressure 116/69 01/21/2024 7:45 PM CDT Pulse 78 01/21/2024 7:45 PM CDT Temperature 37.7 ??C (99.9 ??F) 01/21/2024 3:43 PM CD T Respiratory Rate - - Oxygen Saturation 96% 01/21/2024 7:46 PM CDT Inhaled Oxygen Concentration - - Weight 83.9 kg (185 lb) 01/21/2024 3:43 PM CDT Height 162.6 cm (5' 4) 01/21/2024 3:43 PM CDT Body Mass Index 31.76 01/21/2024 3:43 PM CDT documented in this encounter Discharge Instructions * Discharge Instructions* Cheo Gao MD - 01/21/2024 6:52 PM CDT Discharge Instructions Head Injury You have been seen today for a head injury. Your evaluation included a history and physical examination. You may have had a CT (CAT) scan performed, though most head injuries do not require a scan. Based on this evaluation, your provider today does not feel that your head injury is serious. Generally, every Emergency Department visit should have a follow-up clinic visit with either a primary or a specialty clinic/provider. Please follow-up as instructed by your emergency provider today. Return to the Emergency Department if: You are confused or you are not acting right. Your headache gets worse or you start to have a really bad headache even with your recommended treatment plan. You vomit (throw up) more than once. You have a seizure. You have trouble walking. You have weakness or paralysis (cannot move) in an arm or a leg. You have blood or fluid coming from your ears or nose. You have new symptoms or anything that worries you. Sleeping: It is okay for you to sleep, but someone should wake you up if instructed by your provider, and someone should check on you at your usual time to wake up. Activity: Do not drive for at least [address] if you have dizzy spells or trouble concentrating, or remembering things. Do not return to any contact sports until cleared by your regular provider. MORE INFORMATION: Concussion: A concussion is a minor head injury that may cause temporary problems with the way the brain works. Although concussions are important, they are generally not an emergency or a reason that a person needs to be hospitalized. Some concussion symptoms include confusion, amnesia (forgetful), nausea (sick to your stomach) and vomiting (throwing up), dizziness, fatigue, memory or concentration problems, irritability and sleep problems. For most people, concussions are mild and temporary but some will have more severe and persistent symptoms that require on-going care and treatment. CT Scans: Your evaluation today may have included a CT scan (CAT scan) to look for things like bleeding or a skull fracture (broken bone). CT scans involve radiation and too many CT scans can cause serious health problems like cancer, especially in children. Because of this, your provider may not have ordered a CT scan today if they think you are at low risk for a serious or life threatening problem. If you were given a prescription for [...] are not able to see your regular provider in the amount of time listed above, if you get any new symptoms, or if there is anything that worries you. documented in this encounter Medications at Time of Discharge acetaminophen (TYLENOL) 500 MG tabletIndications :Closed trimalleolar fracture of left ankle, initial encounter Take 2 tablets (1,000 mg) by mouth 3 times daily 10/28/2020 aspirin (ASA) 81 MG chewable tablet Take 81 mg by mouth daily calcium carbonate (TUMS) 500 MG chewable tablet Take 1 tablet (500 mg) by mouth daily 10/28/2020 camphor-menthol (DERMASARRA) 0.5-0.5 % external lotion Apply [...] times daily as needed for dry eyes ibuprofen (ADVIL/MOTRIN) 400 MG tablet Take 400 mg by mouth every 8 hours as needed for moderate pain metoprolol tartrate (LOPRESSOR) 50 MG tablet Take 50 mg by mouth daily mirtazapine (REMERON) 45 MG tablet Take 45 mg by mouth at bedtime nicotine (COMMIT) 2 MG lozengeIndication s:Nicotine dependence with nicotine-induced disorder, unspecified nicotine product type Place 1 lozenge (2 mg) inside cheek every hour as needed for smoking cessation 10/28/2020 omeprazole (PRILOSEC) [address] capsule Take 20 mg by mouth daily phenytoin (DILANTIN) 100 MG ER capsule Take 100 mg by mouth 2 times daily 200 mg at hs polyethylene glycol (MIRALAX) 17 GM/Dose powderIndications :Constipation, unspecified constipation type Take 17 g by mouth daily 510 g 10/28/2020 Potassium Chloride 40 MEQ/15ML (20%) SOLN Take 20 mEq by mouth daily pregabalin (LYRICA) 300 MG capsuleIndication s:Chronic pain disorder Take 1 capsule (300 mg) by mouth 2 times daily. 60 capsule 5 12/02/2023 rOPINIRole (REQUIP ER) 2 MG 24 hr tablet Take 2.5 mg by mouth daily rotigotine (NEUPRO) 2 MG/24HR [address] 1 patch onto the skin daily 02/16/2021 SUMAtriptan (IMITREX) 100 MG tabletIndications :History of migraine TAKE 1 TABLET BY MOUTH AT ONSET OF HEADACHE Dr Juan David Garcia DO, neurologist 9 tablet 0 12/31/2014 vitamin D3 (CHOLECALCIFEROL) 50 mcg (2000 units) tablet Take 1 tablet by mouth daily hydrOXYzine HCl (ATARAX) 25 MG tabletIndications :Acute Urticaria Take 25 mg by mouth 3 times daily. And every day prn 4 Suvorexant (BELSOMRA) 20 MG tabletIndications :Chronic pain disorder Take 1 tablet (20 mg) by mouth at bedtime. 30 tablet 5 12/13/2023 4 documented as of this encounter ED Notes * Laura Marx RN - 01/21/2024 7:03 PM CDT Report given to Tracy * Cheo Gao MD - 01/21/2024 3:48 PM CDT Emergency Department Note History of Present Illness Chief Complaint Fall HPI Sultana Mueller is a 68 year old female with history of alcohol abuse who presents to the ED viaEMS for evaluation of a fall. The patient reports that she was moving from the toilet to her wheelchair an hour ago, lost her balance, and fell. She hit the front left side of her head on the shower floor. She had a another fall on the front of her face recently as well. Her left eye has had some blurred vision due to swelling. Denies alcohol use today. Denies neck pain, leg pain, abdominal pain,or vision loss. Independent Historian None Review of External Notes Past Medical History Medical History and Problem List Adjustment disorder Alcohol abuse Depressive disorder GERD Migraine Seizure disorder Sleep apnea DDD, cervical USAMA RLS Insomnia Hepatic steatosis Cerebral aneurysm Vitamin B12 deficiency Vitamin D insufficiency Sepsis Fibrocystic breast disease Medications Cehpalexin Cyclobenzaprine Gabapentin Nicotine Phenytoin Propranolol ER Ropinirole Rotigotine Sertraline Sumatriptan Aspirin 81 mg Metoprolol Pregabalin Suvorexant Imitrex Celexa Surgical History Back surgery Carpal tunnel release Cervical fusion AVM removal Intracranial aneurysm repair Tonsillectomy Cerebral aneurysm repair Removal of tonsils IR carotid angiogram Open reduction internal fixation ankle Open reduction internal fixation rodding intramedullary humerus ZZC brain AVM surg Physical Exam Patient Vitals for the past 24 hrs: BP Temp Temp src Pulse SpO2 Height Weight 01/21/24 1715 105/76 -- -- 78 -- -- -- 01/21/24 1700 97/74 -- -- 73 -- -- -- 01/21/24 1646 129/71 -- -- 86 97 % -- -- 01/21/24 1630 123/70 -- -- 76 99 % -- -- 01/21/24 1625 120/60 -- -- -- -- -- -- 01/21/24 1543 118/67 99.9 ??F (37.7 ??C) Oral 82 96 % 1.626 m (5' 4) 83.9 kg (185 lb) Physical Exam Constitutional: Well appearing. HEENT: There is bruising of various aging around the left eyebrow, forehead, and left periorbital area. Conjunctival hemorrhage of the left eye. Mild bruising and swelling of the chin without bony tenderness or deformity. No malalignment of the jaw. PERRL. EOMI. Moist mucous membranes. Neck: Soft. Supple. No tenderness to palpation. Cardiac: Regular rate and rhythm. No murmur or rub. Respiratory: Clear to auscultation bilaterally. No respiratory distress. No wheezing, rhonchi, or rales. Abdomen: Soft and nontender. No guarding. Nondistended. Musculoskeletal: No edema. Normal range of motion. Neurologic: Alert and oriented x3. Normal tone and bulk. No facial drooping. Normal speech. 5/5 strength in bilateral upper and lower extremities. Sensation to light touch intact throughout. Normal gait. Skin: No rashes. No edema. Psych: Normal affect. Normal behavior. Diagnostics Lab Results Labs Ordered and Resulted from Time of ED Arrival to Time of ED Departure COMPREHENSIVE METABOLIC PANEL - Abnormal Result Value Sodium 139 Potassium 4.0 Carbon Dioxide (CO2) 25 Anion Gap 17 (*) Urea Nitrogen 12.8 Creatinine 0.67 GFR Estimate >90 Calcium 8.4 (*) Chloride 97 (*) Glucose 97 Alkaline Phosphatase 209 (*) AST 26 ALT 20 Protein Total 7.0 Albumin 3.8 Bilirubin Total 0.2 CBC WITH PLATELETS AND DIFFERENTIAL - Abnormal WBC Count 7.8 RBC Count 4.14 Hemoglobin 9.7 (*) Hematocrit 31.4 (*) MCV 76 (*) MCH 23.4 (*) MCHC 30.9 (*) RDW 18.7 (*) Platelet Count 169 % Neutrophils 65 % Lymphocytes 19 % Monocytes 8 % Eosinophils 7 % Basophils 1 % Immature Granulocytes 0 NRBCs per 100 WBC 0 Absolute Neutrophils 5.0 Absolute Lymphocytes 1.5 Absolute Monocytes 0.7 Absolute Eosinophils 0.5 Absolute Basophils 0.0 Absolute Immature Granulocytes 0.0 Absolute NRBCs 0.0 RBC AND PLATELET MORPHOLOGY - Abnormal RBC Morphology Confirmed RBC Indices Platelet Assessment Value: Automated Count Confirmed. Platelet morphology is normal. Elliptocytes Slight (*) Stomatocytes Slight (*) MAGNESIUM - Normal Magnesium 1.9 ETHYL ALCOHOL LEVEL - Normal Alcohol ethyl <0.01 AMMONIA - Normal Ammonia [address] Head w/o Contrast Final Result IMPRESSION: HEAD CT: 1. No acute intracranial process. 2. Chronic changes and postsurgical changes as above. CERVICAL SPINE CT: 1. No CT evidence for acute fracture or post traumatic subluxation. CT Cervical Spine w/o Contrast Final Result IMPRESSION: HEAD CT: 1. No acute intracranial process. 2. Chronic changes and postsurgical changes as above. CERVICAL SPINE CT: 1. No CT evidence for acute fracture or post traumatic subluxation. EKG None Independent Interpretation CT Head: No intracranial hemorrhage. ED Course Medications Administered Medications ibuprofen (ADVIL/MOTRIN) tablet 800 mg (800 mg Oral $Given 01/21/241850) Procedures None Discussion of Management None ED Course ED Course as of 01/21/241858 Sat Jan 21, 2024 1551 I obtained history and examined the patient as noted above. Additional Documentation None Medical Decision Making / Diagnosis [facility] Diagnoses: None MIPS None [facility] Sultana Mueller is a 68 year old female who is afebrile and hemodynamically stable. She has increased hematoma to left forehead with old appearing. Orbital ecchymosis and conjunctival hemorrhage. She has no vision changes no signs of entrapment notification for imaging of the facial bones. She does have some bruising and swelling to the chin but no tenderness of the bone and no deformity or malalignment and no dental injury. CT scan of the head was unremarkable for abnormalities. Lab workup as noted as above. She is alert and oriented and feels comfortable discharging home and like to go home at this time. She is chronically falling and recommended close primary care follow-up. Strict return precautions were given. No occasion for admission to the hospital for repeat evaluations. She was in no distress at time of discharge. Disposition The patient was discharged. Diagnosis ICD-10-CM 1. Injury of head, initial encounter S09.90XA 2. Injury of jaw, initial encounter S09.93XA Discharge Medications New Prescriptions No medications on file Scribe Disclosure: Rocco Nesbitt, am serving as a scribe at 4:00 PM on 01/21/2024 to document services personally performed by Cheo Gao MD based on my observations and the provider's statements to me. Cheo Gao MD 01/23/24 2143 * Radha Mueller RN - 01/21/2024 3:46 PM CDT Pt arrives from [facility] via [facility] for a fall. Pt was transferring from toilet to w/c and fell on the left side of her face. Pt was seen for the same injury on the same side on Tuesday. Pt denied ETOH today. Per EMS, Pt is a/o x 4. She endorses head pain, swelling and blurred vision on the left. Blurred vision started when EMS asked about it. . Triage Assessment (Adult) Row Name 01/21/24 1546 Triage Assessment Airway WDL WDL Respiratory WDL Respiratory WDL WDL Peripheral/Neurovascular WDL Peripheral Neurovascular WDL WDL * Domenica Larose RN - 01/21/2024 3:39 PM CDT Bed: ED40 Expected date: 01/21/24 Expected time: Means of arrival: Ambulance Comments: [facility] 593 documented in this encounter Plan of Treatment Not on file documented as of this encounter Procedures Procedure Name Priority Date/Time Associated Diagnosis Comments AMMONIA STAT 01/21/2024 5:[address] HEAD W/O CONTRAST STAT 01/21/2024 5:[address] CERVICAL SPINE W/O CONTRAST STAT 01/21/2024 5:32 PM CDT RBC AND PLATELET MORPHOLOGY STAT 01/21/2024 4:29 PM CDT CBC WITH PLATELETS AND DIFFERENTIAL STAT 01/21/2024 4:29 PM CDT CBC WITH PLATELETS & DIFFERENTIAL STAT 01/21/2024 4:29 PM CDT MAGNESIUM STAT 01/21/2024 4:29 PM CDT COMPREHENSIVE METABOLIC PANEL STAT 01/21/2024 4:29 PM CDT ETHYL ALCOHOL LEVEL STAT 01/21/2024 4 :29 PM CDT documented in this encounter Results * Ammonia (01/21/2024 5:48 PM CDT) Ammonia 20 11 - 51 umol/L 01/21/2024 6:12 PM CDT [facility] Blood STRUCTURE OF RIGHT UPPER LIMB / Unknown Venipuncture / Unknown 01/21/2024 5:48 PM CDT 01/21/2024 5:53 PM CDT us Cheo Gao MD LAB - BLOOD ORDERABLES Final Result [facility] Lab [address] Lab (1st floor, no room number) [place] [address], [facility] * CT Head w/o Contrast (01/21/2024 5:33 PM CDT) Anatomical Region Laterality Modality Head, [...] CONTRAST, CT CERVICAL SPINE W/O CONTRAST LOCATION: [facility] DATE: 01/21/2024 INDICATION: fall, left forehead hematoma, [...] CONTRAST, CT CERVICAL SPINE W/O CONTRAST LOCATION: [facility] DATE: 01/21/2024 INDICATION: fall, left forehead hematoma, [...] CONTRAST, CT CERVICAL SPINE W/O CONTRAST LOCATION: [facility] DATE: 01/21/2024 INDICATION: fall, left forehead hematoma, [...] CONTRAST, CT CERVICAL SPINE W/O CONTRAST LOCATION: [facility] DATE: 01/21/2024 INDICATION: fall, left forehead hematoma, [...] for acute fracture or post traumatic subluxation. Cheo Gao MD IMG CT ORDERABLES Final Resu lt * (ABNORMAL) RBC and Platelet Morphology (01/21/2024 4:29 PM CDT) Pathologist [facility] RBC Morphology Confirmed RBC Indices 01/21/2024 6:06 [...] - BLOOD ORDERABLES Final Result [facility] Acute Care Lab [address] Lab (1st floor, no room number) [place] [address], [facility] * (ABNORMAL) CBC with platelets and differential (01/21/2024 4:29 PM CDT) WBC Count 7.8 4.0 - 11.0 10e3/uL [...] MD LAB - BLOOD ORDERABLES Final Result [facility] Lab [address] Lab (1st floor, no room number) [address] [place] [address] * Ethyl Alcohol Level (01/21/2024 4:29 PM CDT) Alcohol ethyl <0.01 <=0.01 g/dL 01/21/2024 5:01 PM CDT [facility] Blood BLOOD SPECIMEN / Unknown Venipuncture / Unknown 01/21/2024 4:29 PM CDT 01/21/2024 4:39 PM CDT Cheo Gao MD LAB - BLOOD ORDERABLES Final Result Performing Organization Address City/[facility]/ZIP Co de Phone Number [facility] Lab [address] Lab (1st floor, no room number) [address] [place] [address] * Magnesium (01/21/2024 4:29 PM CDT) Magnesium 1.9 1.7 - 2.3 mg/dL 01/21/2024 5:01 PM CDT [facility] Blood BLOOD SPECIMEN / Unknown Venipuncture / Unknown 01/21/2024 4:29 PM CDT 01/21/2024 4:39 PM CDT Cheo Gao MD LAB - BLOOD ORDERABLES Final Result [facility] [address] Lab (1st floor, no room number) [place] [address], [facility] * (ABNORMAL) Comprehensive metabolic panel (01/21/2024 4:29 PM CDT) Sodium 139 135 - 145 mmol/L 01/21/2024 5:36 PM CDT [facility] Potassium 4.0 3.4 - 5.3 mmol/L 01/21/2024 5:36 PM CDT [facility] Carbon Dioxide (CO2) 25 22 - 29 mmol/L 01/21/2024 5:36 PM CDT [facility] Anion Gap 17(H) 7 - 15 mmol/L 01/21/2024 5:36 PM CDT [facility] Urea Nitrogen 12.8 8.0 - 23.0 mg/dL 01/21/2024 5:36 PM CDT [facility] Creatinine 0.67 0.51 - 0.95 mg/dL 01/21/2024 5:36 PM CDT [facility] GFR Estimate >90 >60 mL/min/1.7 3m2 01/21/2024 5:36 PM CDT [facility] Comment:eGFR calculated usin 2020 CKD-EPI equation. Calcium 8.4(L) 8.8 - 10.4 [...] - BLOOD ORDERABLES Final Result [facility] Acute Care Lab [address] [facility] Lab (1st floor, no room number) [place] [address], [facility] documented in this encounter Visit Diagnoses Diagnosis Injury of head, initial encounter Injury of jaw, initial encounter documented in this encounter Administered Medications Inactive Administered Medications - up to 3 most recent administrations Medication Order MAR Action Action Date Dose Rate Site ibuprofen (ADVIL/MOTRIN) tablet 800 mg 800 mg, Oral, ONCE, On 01/21/24 at 1840, For 1 dose, Give with food. $Given 01/21/2024 6:51 PM CDT 800 mg documented in this encounter Active and Recently Administered Medications Times are shown in CDT. Scheduled Medication Order 01/19/2024 01/20/2024 01/21/2024 ibuprofen (ADVIL/MOTRIN) tablet 800 mg (COMPLETED) 800 mg, Oral, ONCE, On 01/21/24 at 1840, For 1 dose, Give with food. 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 Assessment Noted Time PHQ-9 Depression Total Score: 9 02/18/20 21 7:30 AM FRONT LINE SUPERVISOR documented as of this encounter Care Teams Rand Tacker Relationship Specialty Start Date End Date Davonte Juan APRN TURBO ELECTRIC OPERATOR [address] [place] [address] PCP - General Family Medicine 11/15/23 Brayden Du MD [address] [facility] [id number] [place] [address] Neurology 05/06/22 [place] [address] [place] [address] Internal Medicine 11/15/23 Kelsy Matthews [address] [place] [address] Geriatric Services Pulp Piler 11/15/23 (Fgs), [facility] Senior [facility] Living [address] [place] [phone] 11/15/23 Davonte Juan APRN TURBO ELECTRIC OPERATOR [address] [place] [id number] Assigned PCP 11/18/23 documented as of this encounter
--- OUTSIDE RECORDS SUMMARY | 2024-02-03 03:17 | XMS_ITS | Encounter Summary ---
Author Organization [facility] Address [address] [place] [address]. [place] [address] Care Team Providers Care Speech Teacher Name Role Phone Brayden Du MD Unavailable Davonte Juan APRN POULTRY FARMER Primary Care Pr ovider Maya Alfaro MD Unavailable [phone] Kelsy Matthews Unavailable + (Fgs), [facility] shanta Apts Asst Living Unavailable Davonte Juan APRN POULTRY FARMER Unavailable Encounter Details Date Type Department Care [...] Sex Assigned at Female 02/28/2021 1:24 PM SUPPLIER DEVELOPMENT MANAGER Legal Sex Female 3:43 AM SUPPLIER DEVELOPMENT MANAGER Gender Identity Female 02/28/2021 1:23 PM SUPPLIER DEVELOPMENT MANAGER Sexual Orientation Straight 02/28/2021 1: 20 PM SUPPLIER DEVELOPMENT MANAGER Occupation Industry Job Start Date Job End [...] Total Score: 9 02/18/20 21 7:30 AM SUPPLIER DEVELOPMENT MANAGER documented as of this encounter Care Teams Speech Teacher Relationship Specialty Start Date End Date Davonte Juan APRN POULTRY FARMER [address] [place] [address] PCP - General Family Medicine 11/15/23 Brayden Du MD [address] [place] [address] [address] Neurology 05/06/22 Maya Alfaro MD [address] [place] [address] Internal Medicine 11/15/23 Kelsy Matthews [address] [place] [address] Geriatric Services Industrial Engineering Technician 11/15/23 (Fgs), [facility] Senior [facility] [address] [place] [phone] 11/15/23 Davonte Juan APRN POULTRY FARMER [address] [place] [id number] Assigned PCP 11/18/23 documented as of this encounter
--- OUTSIDE RECORDS SUMMARY | 2024-02-03 03:17 | XMS_ITS | Encounter Summary ---
Author Organization [facility] Address [address] [place] [address]. [place] [address] Care Team Providers Care Technical Service Engineer Name Role Phone Brayden Du MD Unavailable Davonte Juan APRN MASTER CRAFTSMAN Primary Care Pr ovider Maya Alfaro MD Unavailable [phone] Kelsy Matthews Unavailable + (Fgs), [facility] shanta Apts Asst Living Unavailable Davonte Juan APRN MASTER CRAFTSMAN Unavailable Encounter Details Date Type Department Care [...] Sex Assigned at Female 02/28/2021 1:24 PM ORACLE ENDECA CONSULTANT Legal Sex Female 3:43 AM ORACLE ENDECA CONSULTANT Gender Identity Female 02/28/2021 1:23 PM ORACLE ENDECA CONSULTANT Sexual Orientation Straight 02/28/2021 1: 20 PM ORACLE ENDECA CONSULTANT Occupation Industry Job Start Date Job End [...] Total Score: 9 02/18/20 21 7:30 AM ORACLE ENDECA CONSULTANT documented as of this encounter Care Teams Technical Service Engineer Relationship Specialty Start Date End Date Davonte Juan APRN MASTER CRAFTSMAN [address] [place] [address] PCP - General Family Medicine 11/15/23 Brayden Du MD [address] [place], [place] [address], [place] [address] Neurology 05/06/22 Maya Alfaro MD [address] [place] [address] Internal Medicine 11/15/23 Kelsy Matthews [address] [place] [address] Geriatric Services Immigration Lawyer 11/15/23 (Fgs), [facility] [address] [place] [phone] 11/15/23 Davonte Juan APRN MASTER CRAFTSMAN [address] [place] [address] Assigned PCP 11/18/23 documented as of this encounter
--- OUTSIDE RECORDS SUMMARY | 2024-02-03 03:17 | XMS_ITS | Encounter Summary ---
Author Organization [facility] Address [address] [place] [address]. [place] [address] Care Team Providers Care Cooling Tower Technician Name Role Phone Brayden Du MD Unavailable Davonte Juan APRN BULKER Primary Care Pr ovider Maya Alfaro MD Unavailable [phone] Kelsy Matthews Unavailable + (Fgs), [facility] shanta Apts Asst Living Unavailable Davonte Juan APRN BULKER Unavailable Reason for Visit * Reason Onset Date Comments Patient Request 01/03/2024 Encounter Details Date Type Department Care Team (Late st Contact Info) Description 01/03/2024 Telephone [facility] Geriatrics [address] [place] [address] Ritu Dennis, RN Patient Request Social History [...] Sex Assigned at Female 02/28/2021 1:24 PM AQUATIC LABORER Legal Sex Female 3:43 AM AQUATIC LABORER Gender Identity Female 02/28/2021 1:23 PM AQUATIC LABORER Sexual Orientation Straight 02/28/2021 1: 20 PM AQUATIC LABORER Occupation Industry Job Start Date Job End Date Not on file Not on file Not on file Not on file documented as of this encounter Miscellaneous Notes * Telephone Encounter - Ritu Dennis RN - 01/03/2024 3:31 PM CDT [facility] Triage Nurse Telephone Encounter Provider: Davonte Juan APRN CNP Facility: [facility] Facility Type: [place] Caller: Luz Call Back Number: [phone] Allergies: Allergies Allergen Reactions Darvon-N [Propoxyphene Napsylate] [...] Total Score: 9 02/18/20 21 7:30 AM AQUATIC LABORER documented as of this encounter Care Teams Cooling Tower Technician Relationship Specialty Start Date End Date Davonte Juan APRN CNP [address] [place] [address] PCP - General Family Medicine 11/15/23 Brayden Du MD [address] [facility] [id number] [place] [address] Neurology 05/06/22 Maya Alfaro MD [address] [place] [address] Internal Medicine 11/15/23 Kelsy Matthews [address] [place] [address] Geriatric Services Buffing Wheel Former Machine 11/15/23 (Fgs), [facility] Senior [facility] Living [address] [place] [phone] 11/15/23 Davonte Juan APRN BULKER [address] [place] [address] Assigned PCP 11/18/23 documented as of this encounter
--- OUTSIDE RECORDS SUMMARY | 2024-02-03 03:17 | XMS_ITS | Encounter Summary ---
Author Organization [facility] Address [address] [place] [address]. [place] [address] Care Team Providers Care Courier Name Role Phone Brayden uD MD Unavailable Davonte Juan APRN FISH MACHINE FEEDER Primary Care Pr ovider Maya Alfaro MD Unavailable [phone] Kelsy Matthews Unavailable + (Fgs), [facility] shanta Apts Asst Living Unavailable Davonte Juan APRN FISH MACHINE FEEDER Unavailable Reason for Visit * Reason Onset Date Comments Prior Auth - Medication 12/27/2023 hydrOXYz ine HCl (ATARAX) 25 MG tablet Encounter Details Date Type Department Care Team (Late st Contact Info) Description 12/27/2023 Telephone [facility] Geriatrics [address] [place] [phone] Davonte Juan APRN [address] [address] Prior Auth - Medication ( hydrOXYzine HCl [...] Sex Assigned at Female 02/28/2021 1:24 PM RAILCAR FOREMAN Legal Sex Female 3:43 AM RAILCAR FOREMAN Gender Identity Female 02/28/2021 1:23 PM RAILCAR FOREMAN Sexual Orientation Straight 02/28/2021 1: 20 PM RAILCAR FOREMAN Occupation Industry Job Start Date Job End [...] 25 MG tablet Reference #: Insurance Company: [employer] [place] - Which Pharmacy is filling the prescription (Not needed for infusion/clinic administered): [facility] - [address] Pharmacy Notified: Yes Patient Notified: Instructed pharmacy to notify patient when script is ready to poultry picker/ship. * Telephone Encounter - Nury Alexander - 12/27/2023 11:12 AM CDT Images from the original note were not included. 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 Assessment Noted Time PHQ-9 Depression Total Score: 9 02/18/20 21 7:30 AM RAILCAR FOREMAN documented as of this encounter Care Teams Courier Relationship Specialty Start Date End Date Davonte Juan APRN CNP [address] [place] [address] PCP - General Family Medicine 11/15/23 Brayden Du MD [address] [place], [place] [id number] [address] Neurology 05/06/22 Maya Alfaro MD [address] [place] [address] Internal Medicine 11/15/23 Kelsy Matthews [address] [place] [address] Geriatric Services Arborist 11/15/23 (Fgs), [facility] Senior [facility] Living [address] [place] [phone] 11/15/23 Davonte Juan APRN FISH MACHINE FEEDER [address] [place] [address] Assigned PCP 11/18/23 documented as of this encounter
--- OUTSIDE RECORDS SUMMARY | 2024-02-03 03:17 | XMS_ITS | Encounter Summary ---
Author Organization [facility] Address [address] [place] [address]. [place] [address] Care Team Providers Care Test Rack Operator Name Role Phone Brayden Du MD Unavailable Davonte Juan APRN HOSPITAL AIDE Primary Care Pr ovider Maya Alfaro MD Unavailable [phone] Kelsy Matthews Unavailable + (Fgs), [facility] shanta Apts Asst Living Unavailable Davonte Juan APRN HOSPITAL AIDE Unavailable Encounter Details Date Type Department Care Team (Latest Contact Info) Description 01/17/2024 Travel Social History Tobacco Use Types Packs/Day [...] Sex Assigned at Female 02/28/2021 1:24 PM MICROFILM CAMERA OPERATOR Legal Sex Female 3:43 AM MICROFILM CAMERA OPERATOR Gender Identity Female 02/28/2021 1:23 PM MICROFILM CAMERA OPERATOR Sexual Orientation Straight 02/28/2021 1: 20 PM MICROFILM CAMERA OPERATOR Occupation Industry Job Start Date Job End [...] Total Score: 9 02/18/20 21 7:30 AM MICROFILM CAMERA OPERATOR documented as of this encounter Care Teams Test Rack Operator Relationship Specialty Start Date End Date Davonte Juan APRN HOSPITAL AIDE [address] [place] [address] PCP - General Family Medicine 11/15/23 Brayden Du MD [address] [place] [id number] [address] Neurology 05/06/22 Maya Alfaro MD [address] [place] [address] Internal Medicine 11/15/23 Kelsy Matthews [address] [place] [address] Geriatric Services Pencil Maker 11/15/23 (Fgs), [facility] Senior [facility]pts [facility] Living [address] [place] [phone] 11/15/23 Davonte Juan APRN HOSPITAL AIDE [address] [place] [address] Assigned PCP 11/18/23 documented as of this encounter
--- OUTSIDE RECORDS SUMMARY | 2024-02-03 03:17 | XMS_ITS | Encounter Summary ---
Author Organization [facility] Address [address] [place] [address]. [place] [address] Care Team Providers Care Toy Painter Name Role Phone Brayden Du MD Unavailable Davonte Juan APRN FINANCIAL RISK MANAGER Primary Care Pr ovider Maya Alfaro MD Unavailable [phone] Kelsy Matthews Unavailable + (Fgs), [facility] shatna Apts Asst Living Unavailable Davonte Juan APRN FINANCIAL RISK MANAGER Unavailable Encounter Details Date Type Department Care Team (Latest Contact Info) Description 01/21/2024 Travel Social History Tobacco Use Types Packs/Day [...] Assigned at Female 02/28/2021 1:24 PM MANUFACTURING COORDINATOR Legal Sex Female 3:43 AM MANUFACTURING COORDINATOR Gender Identity Female 02/28/2021 1:23 PM MANUFACTURING COORDINATOR Sexual Orientation Straight 02/28/2021 1: 20 PM MANUFACTURING COORDINATOR Occupation Industry Job Start Date Job End [...] Total Score: 9 02/18/20 21 7:30 AM MANUFACTURING COORDINATOR documented as of this encounter Care Teams Toy Painter Relationship Specialty Start Date End Date Davonte Juan APRN FINANCIAL RISK MANAGER [address] [place] [address] PCP - General Family Medicine 11/15/23 Brayden Du MD [address] [id number] [address] Neurology 05/06/22 Maya Alfaro MD [address] [place] [address] Internal Medicine 11/15/23 Kelsy Matthews [address] [place] [address] Geriatric Services Lead Shipper 11/15/23 (Fgs), [facility] Senior [facility]pts [facility] Living [address] [place] [phone] 11/15/23 Davonte Juan APRN FINANCIAL RISK MANAGER [address] [place] [address] Assigned PCP 11/18/23 documented as of this encounter
--- OUTSIDE RECORDS SUMMARY | 2024-02-03 03:17 | XMS_ITS | Encounter Summary ---
Author Organization [facility] Address [address] [place] [address]. [place] [address] Care Team Providers Care Clerk Of Superior Court Name Role Phone Brayden Du MD Unavailable Davonte Juan APRN HAND SLITTER Primary Care Pr ovider Maya Alfaro MD Unavailable [phone] Kelsy Matthews Unavailable + (Fgs), [facility] shanta Apts Asst Living Unavailable Davonte Juan APRN HAND SLITTER Unavailable Encounter Details Date Type Department Care Team (Latest Contact Info) Description 01/24/2024 Travel Social History Tobacco Use Types Packs/Day [...] Sex Assigned at Female 02/28/2021 1:24 PM ASSOCIATE BUSINESS ANALYST Legal Sex Female 3:43 AM ASSOCIATE BUSINESS ANALYST Gender Identity Female 02/28/2021 1:23 PM ASSOCIATE BUSINESS ANALYST Sexual Orientation Straight 02/28/2021 1: 20 PM ASSOCIATE BUSINESS ANALYST Occupation Industry Job Start Date Job End [...] Total Score: 9 02/18/20 21 7:30 AM ASSOCIATE BUSINESS ANALYST documented as of this encounter Care Teams Clerk Of Superior Court Relationship Specialty Start Date End Date Davonte Juan APRN HAND SLITTER [address] [place] [address] PCP - General Family Medicine 11/15/23 Brayden Du MD [address] [place] [id number] [address] Neurology 05/06/22 Maya Alfaro MD [address] [place] [address] Internal Medicine 11/15/23 Kelsy Matthews [address] [place] [address] Geriatric Services Associate Professor Of Philosophy 11/15/23 (Fgs), [facility] Senior Apts [facility] Living [address] [place] [phone] 11/15/23 Davonte Juan APRN HAND SLITTER [address] [place] [address] Assigned PCP 11/18/23 documented as of this encounter
--- OUTSIDE RECORDS SUMMARY | 2024-02-03 03:17 | XMS_ITS | Encounter Summary ---
Author Organization [facility] Address [address] [place] [address] Care Team Providers Care Finishing Operator Name Role Phone Brayden Du MD Unavailable Davonte Juan APRN GROUND SERVICE EQUIPMENT MECHANIC Primary Care Pr ovider Maya Alfaro MD Unavailable [phone] Kelsy Matthews Unavailable + (Fgs), [facility] shanta Apts Asst Living Unavailable Davonte Juan APRN GROUND SERVICE EQUIPMENT MECHANIC Unavailable Reason for Visit * Reason Comments ER F/U Encounter Details Date Type Department Care Team (Late st Contact Info) Description 01/20/2024 8:00 AM CDT Assisted Living Visit [facility] Geriatrics [address] [place] [phone] Davonte Juan APRN CNP [address] [place] [address] ETOH abuse (Primary Dx); Lymphedema; Primary insomnia Social History Tobacco Use Types [...] Sex Assigned at Female 02/28/2021 1:24 PM SCIENCE TECHNICIANS Legal Sex Female 3:43 AM SCIENCE TECHNICIANS Gender Identity Female 02/28/2021 1:23 PM SCIENCE TECHNICIANS Sexual Orientation Straight 02/28/2021 1: 20 PM SCIENCE TECHNICIANS Occupation Industry Job Start Date Job End Date Not on file Not on file Not on file Not on file documented as of this encounter Last Filed Vital Signs Vital Sign Reading Time Taken Comments Blood Pressure 124/85 01/20/2024 7:56 AM CDT Pulse 83 01/20/2024 7:56 AM CDT Temperature - - Respiratory Rate 18 01/20/2024 7:56 AM CDT Oxygen Saturation 94% 01/20/2024 7:56 AM CDT Inhaled Oxygen Concentration - - Weight - - Height 162.6 cm (5' 4) 01/20/2024 7:56 AM CDT Body Mass Index - - documented in this encounter Progress Notes * Davonte Juan APRN CNP - 01/20/2024 8:00 AM CDT [facility] PRIMARY [facility]ARE PROVIDER [facility] CLINIC: Davonte Juan APRN GROUND SERVICE EQUIPMENT MECHANIC, [address] [facility] [id number] Chief Complaint Patient presents with ER F/U [facility] of Service where encounter took place: [facility] ([facility]) [[id number]] Sultana Mueller is a 68 year old (1955), returned to the above facility from [facility]. Hospital stay 01/18/24 - 01/18/24. . Admitted to this facility for medical management and nursing care. HPI: HPI information obtained from: facility chart records, facility staff, patient report, and [facility] chart review. Brief Summary of Hospital Course: Etoh abuse: intoxication with fall 01/16/24. Facial trauma L eye/forehead. Sent to ED. Imaging neg.Labs showed elevated liver enzymes. Ammonia level elevated. Has increased confusion. Blood alcohol level elevated. Return to [place]. 01/18/24 had altered mental status. Sent to ED. Head Ct neg. Sl elevated blood alcohol level. LFTs elevated. Ammonia level wnl. Lymphedema. Ongoing LE edema. Cont. On lasix, compression stockings. Cont to work with therapies. In ED hypokalemia. K+ replaced. Cont. On lasix. Insomnia: taking remeron, belsomra, neupro for insomnia, RLS. Reports s/s gen. Stable. Updates on Status Since half-way Admission: po intake stable. Neuros baseline. CODE STATUS/ADVANCE DIRECTIVES DISCUSSION: CPR/Full code Patient's [...] Post Discharge Medication Reconciliation Status: discharge medications reconciled, continue medications without change Current Outpatient Medications Medication Sig Dispense Refill [...] 3 times daily. And every day prn hypromellose (ARTIFICIAL TEARS) 0.5 % SOLN ophthalmic [...] tablet Take 1 tablet by mouth daily ROS: No chest pain, shortness of breath, fevers, chills, headache, nausea, vomiting, dysuria or bowel abnormalities. Appetite is normal. No pain except occ LEs. Vitals: BP 124/85 Pulse 83 Resp 18 Ht 1.626 m (5' 4) LMP (LMP Unknown) SpO2 94% BMI 30.55 kg/m?? Exam: GENERAL APPEARANCE: Alert, in no distress, cooperative ENT: Mouth and posterior oropharynx normal, moist mucous membranes, normal hearing acuity EYES: PERRL, EOM normal, L periorbital ecchymosis, sl edema RESP: respiratory effort and palpation of chest normal, lungs clear to auscultation , no respiratory distress CV: Palpation and auscultation of heart done , regular rate and rhythm, no murmur, rub, or gallop, peripheral edema 2+ in LEs ABDOMEN: normal bowel sounds, soft, nontender, no hepatosplenomegaly or other masses, no guarding or rebound M/S: muscle strength 5/5 RUE, L hemiparesis. Gen. LE weakness NEURO: Cranial nerves 2-12 are normal tested and grossly at patient's baseline, speech sl slurred PSYCH: affect and mood normal, no apparent anxiety Lab/Diagnostic data: Most Recent 3 CBC's: Recent Labs Lab Test 01/18/24 1601 01/09/24 1004 11/16/23 0618 07/25/23 0647 WBC 9.5 -- 7.1 7.9 HGB 11.3* 10.5* 9.6* 10.0* MCV 74* -- 77* 96 PLT 264 -- 249 375 Most Recent 3 BMP's: Recent Labs Lab Test 01/18/24 1601 01/09/24 1004 11/16/23 0618 NA 146* 135 144 POTASSIUM 2.6* 4.5 4.4 CHLORIDE 101 97* 105 CO2 28 28 29 BUN 18.6 12.9 21.0 CR 0.80 0.66 0.66 ANIONGAP 17* 10 10 MICHELLE 8.3* 9.3 9.0 GLC 171* 89 109* Most Recent 2 LFT's: Recent Labs Lab Test 01/18/24 1601 10/13/23 0630 AST 60* 25 ALT 39 11 ALKPHOS 188* 161* BILITOTAL 0.2 <0.2 ASSESSMENT/PLAN: (F10.10) ETOH abuse (primary encounter diagnosis) Comment: altered mental status, falls. Elevated LFTs. Plan: 1. Discussed etoh cessation due to elevated LFTs, ammonia levels, fall risks, potential interaction with meds. Agrees to minimize etoh intake. Will plan to repeat LFTs. Discussed need for hosp.To check ammonia level. For ongoing elevated LFTs, ammonia levels will consider referral to heptology. 2. Refer to onsite psychotherapy with [facility] (I89.0) Lymphedema Comment: ongoing. No recent changes. Bps stable. Hypokalemia in ED. Plan: 1. Cont. Lasix, KCL 2. Cont. Compression stockings, follow wt.s 3. Bmp next week (F51.01) Primary insomnia Comment: reports gen. Stable. Plan: 1. Cont. Belsomra, Neupro, remeron 2. Monitor for cont. 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 Assessment Noted Time PHQ-9 Depression Total Score: 9 02/18/20 21 7:30 AM SCIENCE TECHNICIANS documented as of this encounter Care Teams Finishing Operator Relationship Specialty Start Date End Date Davonte Juan APRN GROUND SERVICE EQUIPMENT MECHANIC [address] [place] [address] PCP - General Family Medicine 11/15/23 Brayden Du MD [address] [place] [address] [id number] [address] Neurology 05/06/22 Maya Alfaro MD [address] [place] [address] Internal Medicine 11/15/23 Kelsy Matthews [address] [place] [address] Geriatric Services Outlet Manager 11/15/23 (Fgs), [facility] Senior [facility] Living [address] [place] [phone] 11/15/23 Davonte Juan APRN CNP [address] [place] [address] Assigned PCP 11/18/23 documented as of this encounter
--- OUTSIDE RECORDS SUMMARY | 2024-02-03 03:17 | XMS_ITS | Encounter Summary ---
Author Organization [facility] Address [address] [place] [address]. [place] [address] Care Team Providers Care Labor Relations Worker Name Role Phone Brayden Du MD Unavailable Davonte Juan APRN ORACLE FUSION DEVELOPER Primary Care Pr ovider Maya Alfaro MD Unavailable [phone] Kelsy Matthews Unavailable + (Fgs), [facility] shanta Apts Asst Living Unavailable Davonte Juan APRN ORACLE FUSION DEVELOPER Unavailable Encounter Details Date Type Department Care Team (Latest Contact Info) Description 01/20/2024 Travel Social History Tobacco Use Types Packs/Day [...] Sex Assigned at Female 02/28/2021 1:24 PM RPG PROGRAMMER ANALYST Legal Sex Female 3:43 AM RPG PROGRAMMER ANALYST Gender Identity Female 02/28/2021 1:23 PM RPG PROGRAMMER ANALYST Sexual Orientation Straight 02/28/2021 1: 20 PM RPG PROGRAMMER ANALYST Occupation Industry Job Start Date Job [...] Total Score: 9 02/18/20 21 7:30 AM RPG PROGRAMMER ANALYST documented as of this encounter Care Teams Labor Relations Worker Relationship Specialty Start Date End Date Davonte Juan APRN ORACLE FUSION DEVELOPER [address] [place] [address] PCP - General Family Medicine 11/15/23 Brayden Du MD [address] [id number] [address] Neurology 05/06/22 Maya Alfaro MD [address] [place] [address] Internal Medicine 11/15/23 Kelsy Matthews [address] [place] [address] Geriatric Services Esl Professor 11/15/23 (Fgs), [facility] Senior [facility] Living [address] [place] [phone] 11/15/23 Davonte Juan APRN ORACLE FUSION DEVELOPER [address] [place] [address] Assigned PCP 11/18/23 documented as of this encounter
--- OUTSIDE RECORDS SUMMARY | 2024-02-03 03:17 | XMS_ITS | Encounter Summary ---
Author Organization [facility] Address [address] [place] [address]. [place] [address] Care Team Providers Care Bean Snapper Name Role Phone Brayden Du MD Unavailable Davonte Juan APRN INTEGRATED PROGRAM TEACHER Primary Care Pr ovider Maya Alfaro MD Unavailable [phone] Kelsy Matthews Unavailable + (Fgs), [facility] Living Unavailable Davonte Juan APRN INTEGRATED PROGRAM TEACHER Unavailable Reason for Visit * Reason Comments Fall Head Injury Encounter Details Date Type Department Care Team (Late st Contact Info) Description 01/18/2024 3:49 PM CDT - 01/18/2024 11:16 PM CDT Emergency [facility] Emergency Dept [address] [place] [id number] [phone] Harvinder Aguilera MD EMERGENCY PHYSICIAN [facility] [address] [place], [place] [id number] Alcohol use disorder; Drowsiness; Hypokalemia Discharge Disposition: Home or Self Care Social [...] Sex Assigned at Female 02/28/2021 1:24 PM HOUSING MANAGEMENT REPRESENTATIVE Legal Sex Female 3:43 AM HOUSING MANAGEMENT REPRESENTATIVE Gender Identity Female 02/28/2021 1:23 PM HOUSING MANAGEMENT REPRESENTATIVE Sexual Orientation Straight 02/28/2021 1: 20 PM HOUSING MANAGEMENT REPRESENTATIVE Occupation Industry Job Start Date Job End Date Not on file Not on file Not on file Not on file documented as of this encounter Last Filed Vital Signs Vital Sign Reading Time Taken Comments Blood Pressure 104/86 01/18/2024 11:07 PM CDT Pulse 94 01/18/2024 11:07 PM CDT Temperature 36.4 ??C (97.6 ??F) 01/18/2024 3:52 PM CD T Respiratory Rate 20 01/18/2024 3:52 PM CDT Oxygen Saturation 96% 01/18/2024 11:07 PM CDT Inhaled Oxygen Concentration - - Weight 80.7 kg (178 lb) 01/18/2024 10:44 PM CDT Height 162.6 cm (5' 4) 01/18/2024 10:44 PM CDT Body Mass Index 30.55 01/18/2024 10:44 PM CDT documented in this encounter Discharge Instructions * Attachments The following attachments cannot be sent through Care Everywhere. * Hypokalemia (Vincentian) documented in this encounter Medications at Time [...] of this encounter ED Notes * Kvng Zhao, LONG INTEGRATED PROGRAM TEACHER - 01/18/2024 9:58 PM CDT Emergency Department Note History of Present Illness Chief Complaint Fall and Head Injury HPI Sultana Mueller is a 68 year old female who presents emergency department for the evaluation of increasing drowsiness. Past medical history includes alcoholism and previous CVA with left-sided hemiparesis. Patient reports that her last drink was earlier today. Lives in an assisted living. As pernursing staff at the assisted living, was found to have altered mental status earlier today. The nursing staff states that the patient was diaphoretic during this time and due to the patient's prior CVA, EtOH abuse, and recent fall the nursing staff elected to transfer the patient to the emergency department for further evaluation and workup. Independent Historian EMS and Nursing Staff of [facility] as detailed above. 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 Sleep apnea Medications acetaminophen (TYLENOL) 500 MG tablet aspirin (ASA) 81 MG chewable tablet calcium carbonate (TUMS) 500 MG chewable tablet camphor-menthol (DERMASARRA) 0.5-0.5 % external lotion citalopram (CELEXA) 40 MG tablet Coloplast barrier cream CREA Cyanocobalamin (VITAMIN B-12 PO) cyanocobalamin (VITAMIN B-12) 1000 MCG tablet docusate sodium (COLACE) 100 MG capsule Estradiol (ESTRACE VA) furosemide (LASIX) 40 MG tablet hydrocortisone 1 % CREA cream hydrOXYzine HCl (ATARAX) 25 MG tablet hypromellose (ARTIFICIAL TEARS) 0.5 % SOLN ophthalmic solution ibuprofen (ADVIL/MOTRIN) 400 MG tablet metoprolol tartrate (LOPRESSOR) 50 MG tablet mirtazapine (REMERON) 45 MG tablet nicotine (COMMIT) 2 MG lozenge omeprazole (PRILOSEC) [address] capsule phenytoin (DILANTIN) 100 MG ER capsule polyethylene glycol (MIRALAX) 17 GM/Dose powder Potassium Chloride 40 MEQ/15ML (20%) SOLN pregabalin (LYRICA) 300 MG capsule rOPINIRole (REQUIP ER) 2 MG 24 hr tablet rotigotine (NEUPRO) 2 MG/24HR 24 hr patch SUMAtriptan (IMITREX) 100 MG tablet Suvorexant (BELSOMRA) 20 MG tablet vitamin D3 (CHOLECALCIFEROL) 50 mcg (2000 units) tablet Surgical History Past Surgical History: Procedure Laterality Date CARPAL TUNNEL RELEASE RT/LT Right 2010 CERVICAL DISC FUSION NOS IR CAROTID ANGIOGRAM 02/03/2004 IR MISCELLANEOUS PROCEDURE 02/03/2004 OPEN REDUCTION INTERNAL FIXATION ANKLE Left 10/24/2020 Procedure: Open reduction and internal fixation of left bimalleolar ankle fracture; Surgeon: Quentin Pritchett MD; Location: OR OPEN REDUCTION INTERNAL FIXATION RODDING INTRAMEDULLARY HUMERUS Left 01/16/2014 Procedure: OPEN REDUCTION INTERNAL FIXATION RODDING INTRAMEDULLARY HUMERUS; Surgeon: Bayron Can MD; Location: OR Surgery for AV malformation and brain 2001 TONSILLECTOMY Physical Exam Patient Vitals for the past 24 hrs: BP Temp Temp src Pulse Resp SpO2 01/18/242016 -- -- -- -- -- 97 % 01/18/24 1917 -- -- -- -- -- 98 % 01/18/24 1832 (!) 119/99 -- -- 94 -- 98 % 01/18/24 1815 117/58 -- -- 91 -- 97 % 01/18/24 1800 122/65 -- -- 91 -- 98 % 01/18/24 1745 107/59 -- -- 88 -- 97 % 01/18/24 1730 116/80 -- -- -- -- -- 01/18/24 1700 122/72 -- -- 81 -- 95 % 01/18/24 1645 (!) 134/95 -- -- 84 -- 95 % 01/18/24 1630 126/72 -- -- 85 -- 96 % 01/18/24 1615 130/74 -- -- 79 -- 95 % 01/18/24 1552 139/79 97.6 ??F (36.4 ??C) Oral 82 20 94 % Physical Exam General: Awake, alert, non-toxic. Head: Scalp is NC/AT Eyes: Conjunctiva normal, PERRL ENT: The external nose and ears are normal. Oropharynx clear, uvula midline. Neck: Normal range of motion without rigidity. CV: Regular rate and rhythm No pathologic murmur, rubs, or gallops. Resp: Breath sounds are clear bilaterally Non-labored, no retractions or accessory muscle use Abdomen: Abdomen is soft, no distension, no tenderness, no masses. No CVA tenderness. MS: No lower extremity edema/swelling. No midline cervical, thoracic, or lumbar tenderness. Extremities without joint swelling or redness. Skin: Warm and dry, No rash or lesions noted. Ecchymosis noted to the left orbit, cheek, and temporal region. Neuro: Alert and oriented. GCS 15 Moves all extremities per baseline. Left upper extremity 4/5 and LLE 4/5. Known hemiparesis. No facial asymmetry. Gait normal. Psych: Awake. Alert. Normal affect. Appropriate interactions. Diagnostics Lab Results Labs Ordered and Resulted from Time of ED Arrival to Time of ED Departure COMPREHENSIVE METABOLIC PANEL - Abnormal Result Value Sodium 146 (*) Potassium 2.6 (*) Carbon Dioxide (CO2) 28 Anion Gap 17 (*) Urea Nitrogen 18.6 Creatinine 0.80 GFR Estimate 81 Calcium 8.3 (*) Chloride 101 Glucose 171 (*) Alkaline Phosphatase 188 (*) AST 60 (*) ALT 39 Protein Total 7.9 Albumin 4.4 Bilirubin Total 0.2 INR - Abnormal INR 1.30 (*) ETHYL ALCOHOL LEVEL - Abnormal Alcohol ethyl 0.03 (*) CBC WITH PLATELETS AND DIFFERENTIAL - Abnormal WBC Count 9.5 RBC Count 4.89 Hemoglobin 11.3 (*) Hematocrit 36.2 MCV 74 (*) MCH 23.1 (*) MCHC 31.2 (*) RDW 18.6 (*) Platelet Count 264 % Neutrophils 72 % Lymphocytes 17 % Monocytes 8 % Eosinophils 2 % Basophils 1 % Immature Granulocytes 0 NRBCs per 100 WBC 0 Absolute Neutrophils 6.9 Absolute Lymphocytes 1.6 Absolute Monocytes 0.8 Absolute Eosinophils 0.1 Absolute Basophils 0.1 Absolute Immature Granulocytes 0.0 Absolute NRBCs 0.0 AMMONIA - Normal Ammonia 47 MAGNESIUM - Normal Magnesium 2.[address] Head w/o Contrast Final Result IMPRESSION: 1. Mildly limited exam without an acute intracranial abnormality. 2. A small left frontal scalp contusion anteriorly without a definite acute calvarial injury. 3. Chronic and postprocedural/postoperative changes, as described. EKG ECG results from 01/18/24 EKG 12-lead, tracing only Value Systolic Blood Pressure Diastolic Blood Pressure Ventricular Rate 86 Atrial Rate 86 IL Interval 148 QRS Duration 94 QT 434 QTc 519 P [place] 42 R AXIS 54 T [place] 5 Interpretation ECG Sinus rhythm Possible Inferior infarct (cited on or before 07-Mar-2023) Prolonged QT Abnormal ECG When compared with ECG of 06-Jun-2023 11:14, Vent. rate has decreased by 45 bpm Questionable change in QRS duration Independent Interpretation None ED Course Medications Administered Medications ondansetron (ZOFRAN) injection 4 mg (has no administration in time range) sodium chloride 0.9% BOLUS 1,000 mL (0 mLs Intravenous Stopped 01/18/242120) potassium chloride 10 mEq in 100 mL sterile water infusion (0 mEq Intravenous Stopped 01/18/242120) ondansetron (ZOFRAN) injection 4 mg (4 mg Intravenous $Given 01/18/241800) potassium chloride (KLOR-CON) Packet 40 mEq (40 mEq Oral $Given 01/18/241800) Procedures Procedures Discussion of Management None ED Course Additional Documentation None Medical Decision Making / Diagnosis [facility] Diagnoses: None MIPS None [facility] Sultana Mueller is a 68 year old female who presents emergency department further evaluation of altered mental status. Broad differential diagnosis is considered which includes but is not limited to acute electrolyte abnormality, acute hepatic encephalopathy, alcohol intoxication, subarachnoid hemorrhage, acute ischemic stroke. CBC did not reveal any acute leukocytosis, WBC count is stable at 9.5. Hemoglobin is stable at 1.3. Chemistry did reveal hypokalemia, potassium level 2.6 which was replaced with 40 mill equivalents of p.o. potassium as well as 10 mill equivalents of IV potassium. Sodium is stable at 146. Ammonia level is normal at 47. EKG did not reveal any acute ST elevation or depression head CT was performed which did not reveal any significant intercranial abnormality. Alcohol level was performed which resulted at 0.03, however do not believe this is significant enough to cause the patient's altered status. There was a staff member from the patient's assisted living which reported that her speech although is slurred is comparable to the patient's baseline and she feelsthis is not unchanged. At this time I cannot find an acute reason for the patient's altered mental status that was experienced earlier. However upon reevaluation I feel the patient safe for discharge. Patient agreed to this and is requesting to be discharged home. All questions and concerns were addressed and patient verbalized understanding. Red flag symptoms and return criteria were discussed and patient verbalized understanding. Disposition The patient was discharged. Diagnosis ICD-10-CM 1. Alcohol use disorder F10.90 2. Drowsiness R40.0 3. Hypokalemia E87.6 Discharge Medications New Prescriptions No medications on file LONG Ferraro CNP, Casey, APRN CNP 01/18/24 2235 * Harvinder Aguilera MD - 01/18/2024 4:18 PM CDT Emergency Department Attending Supervision Note 01/18/2024 4:18 PM I evaluated this patient in conjunction with Kvng CAMARA Briefly, the patient presented with EMS for reported drowsiness. She is currently drinking alcohol.Hx of falls and etoh chronic L hemiplegia and lives in assisted living independent. Fall 2 days agointoxicated Seen [facility] (reviewed in care everywhere shared encounter) and home medical visit yesterday see excerpt note below. Assisted Living Visit 01/17/2024 [facility] Davonte Juan APRN CNP Family Medicine Fall, subsequent encounter +2 more Dx ER F/U Reason for Visit Progress Notes Davonte Juan APRN CNP (Nurse Practitioner) Family Medicine Expand All Collapse All [facility] PRIMARY CARE PROVIDER AND CLINIC: Davonte Juan APRN CNP, [address] [facility] / [facility] [id number] Chief Complaint Patient presents with ER F/U [facility] Place of Service where encounter took place: [facility] ([facility]) [[id number]] Sultana Mueller is a 68 year old (1955), returned to the above facility from [facility] on 01/16/24. HPI: HPI information obtained from: facility chart records, facility staff, patient report, and [facility] chart review. Brief Summary of Hospital Course: Fall. X2 01/15/24, then 01/16/24, the latter with facial trauma, edema. Sent to ED. Head, cervical spine, maxofacial CT neg. Bruising, edema to L eye. No current headache pain. Neuros stable. Etoh abuse. Per staff, has cont. To have etoh use, falls, denies etoh use. Per ED not, blood alcohol level elevated as was Alk phos. 166, AST 51, ammonia level 66. Intertrigo: ongoing redness, open area L axilla. Coloplast cream ineffective. Updates on Status Since long-term Admission: Neuros stable CODE STATUS/ADVANCE DIRECTIVES DISCUSSION: CPR/Full code Patient's [...] reconciled, continue medications without change Current Outpatient Prescriptions Current Outpatient Medications Medication Sig Dispense Refill [...] No pain except occ LEs. Vitals: BP 111/65 Pulse 88 Resp 18 Wt 81 kg (178 lb 9.2 oz) LMP (LMP Unknown) SpO2 95% BMI 30.65 kg/m?? Exam: GENERAL APPEARANCE: Alert, in no distress, cooperative ENT: Mouth and posterior oropharynx normal, moist mucous membranes, [place] BAND EYES: PERRL, EOM normal NECK: FROM RESP: respiratory effort and palpation of chest normal, lungs clear to auscultation , no respiratory distress CV: Palpation and auscultation of heart done , regular rate and rhythm, no murmur, rub, or gallop, peripheral edema 1-2+ in LEs ABDOMEN: normal bowel sounds, soft, nontender, no hepatosplenomegaly or other masses, no guarding or rebound M/S: L hemiparesis. RUE strength 5/5 some gen. RLE weakness SKIN: ecchymosis of L eye, L forehead NEURO: Cranial nerves 2-12 are normal tested and grossly at patient's baseline, no tremor. Speech sl slurred PSYCH: memory impaired , affect and mood normal, no apparent anxiety Lab/Diagnostic data: Most Recent 3 CBC's: Recent Labs Lab Test 01/09/24 1004 11/16/23 0618 07/25/23 0647 06/11/23 2053 WBC -- 7.1 7.9 7.2 HGB 10.5* 9.6* 10.0* 10.9* MCV -- 77* 96 88 PLT -- 249 375 343 Most Recent 3 BMP's: Recent Labs Lab Test 01/09/24 1004 11/16/23 0618 10/13/23 0630 NA 135 144 141 POTASSIUM 4.5 4.4 4.2 CHLORIDE 97* 105 101 CO2 28 29 28 BUN 12.9 21.0 13.9 CR 0.66 0.66 0.65 ANIONGAP 10 10 12 MICHELLE 9.3 9.0 9.2 GLC 89 109* 85 ASSESSMENT/PLAN: (W19.XXXD) Fall, subsequent encounter (primary encounter diagnosis) Comment: recent falls x 2 . Etoh use. Self-transfers. L hemiparesis. Plan: 1. Cont. PT 2. Monitor for pain, decrease in mobility from baseline 3. Monitor for further falls (F10.10) ETOH abuse Comment: ongoing. Denies etoh use. Elevated blood alcohol level in ED. Recurrent falls. Elevated ammonia level, LFTs Plan: 1. Has referral for mental health appt-has not yet made 2. Monitor for increased confusion 3. Consider referral to heptology (L30.4) Intertrigo Comment: ongoing, L axilla Plan: 1. Discontinue coloplast cream to site 2. Start nystatin cream to site 3. Reassess over next couple weeks. Electronically signed by: Davonte Juan APRN CNP On my exam, General: Patient is likely intoxicated. Head: Post fall bruising of face left periorbital not new. . Eyes: Conjunctivae and EOM are normal. No scleral icterus. Neck: Normal range of motion. Neck supple. Cardiovascular: Normal rate, regular rhythm, normal heart sounds and intact distal pulses. Pulmonary/Chest: Breath sounds normal. No respiratory distress. Abdominal: Soft. Bowel sounds are normal. No distension. No tenderness. No rebound or guarding. Musculoskeletal: Normal range of motion. RUE and RLE intact. Chronic left hemiplegia. Skin: Warm and dry. No rash noted. Not diaphoretic. Results: ED course: Repeat Ct scan no new traumatic abnormality of brain. With daily alcohol uses slight dehydration and hypokalemia these were addressed. My impression is Diagnosis ICD-10-CM 1. Alcohol use disorder F10.90 2. Drowsiness R40.0 3. Hypokalemia E87.6 Harvinder Aguilera MD Stevens, Andrew C, MD 01/18/24 193 * Sunita Flowers RN - 01/18/2024 3:56 PM CDT Patient arrives after a fall 2 days ago. Seen at [facility] 2 days ago and discharged home. Patientis heavy alcoholic and most likely intoxicated right now per medics. * Aishwarya Kwok RN - 01/18/2024 3:49 PM CDT Bed: ED20 Expected date: Expected time: Means of arrival: Comments: [facility] 594 documented in this encounter Plan of Treatment Not on file documented as of this encounter Procedures Procedure Name Priority Date/Time Associated Diagnosis Comments CT HEAD W/O CONTRAST STAT 01/18/2024 5:36 PM CDT EKG 12-LEAD, TRACING ONLY STAT 01/18/2024 5:33 PM CDT AMMONIA STAT 01/18/2024 4:45 PM CDT EXTRA TUBE STAT 01/18/2024 4:01 PM CDT EXTRA [...] TUBE STAT 01/18/2024 4 :01 PM CDT CBC WITH PLATELETS AND DIFFERENTIAL STAT 01/18/2024 4:01 PM CDT CBC WITH PLATELETS & DIFFERENTIAL STAT 01/18/2024 4:01 PM CDT INR STAT 01/18/2024 4:01 PM CDT MAGNESIUM STAT 01/18/2024 4:01 PM CDT COMPREHENSIVE METABOLIC PANEL STAT 01/18/2024 4:01 PM CDT ETHYL ALCOHOL LEVEL STAT 01/18/2024 4 :01 PM CDT documented in this encounter Results * CT Head w/o Contrast (01/18/2024 5:36 PM CDT) Anatomical Region Laterality Modality Head, SUBRAD CT NEURO, SUBRA D CT NEURO, UMP CT NEURO, RAD CT Computed Tomography 01/18/2024 5:36 PM CDT Impressions 01/18/2024 6:27 PM CDT IMPRESSION: 1. ??Mildly limited exam without an acute intracranial abnormality. 2. ??A small left frontal scalp contusion anteriorly without a definite acute calvarial injury. 3. ??Chronic and postprocedural/postoperative changes, as described. Narrative 01/18/2024 6:27 PM CDT EXAM: CT HEAD W/O CONTRAST LOCATION: [facility] DATE: 01/18/2024 INDICATION: Recent mechanical fall, intoxicated. Rule out bleed. COMPARISON: CT dated 06/06/2023 TECHNIQUE: Routine CT Head without IV contrast. Multiplanar reformats. Dose reduction techniques were used. FINDINGS: Portions of the exam are degraded by motion and streak artifacts. Within this mild limitation: INTRACRANIAL CONTENTS: No acute intracranial hemorrhage, extra-axial fluid collection, or mass effect. No evidence of an acute transcortical confluent infarct. Mild presumed chronic small vessel ischemic changes. Redemonstration of encephalomalacia involving the left anteromedial-inferior left frontal lobe, which may be posttraumatic in nature. Changes related to prior right frontoparietal craniotomy for treatment of an arteriovenous malformation involving the right frontal lobe where there is endovascular embolization material and encephalomalacia. A left supraclinoid aneurysm coil mass, as before. Resultant streak artifact. Mild generalized cerebral parenchymal volume loss. No hydrocephalus. VISUALIZED SINUSES/MASTOIDS: No evidence of significant paranasal sinus or mastoid mucosal disease. BONES/SOFT TISSUES: No definite acute calvarial injury. A small left frontal scalp hematoma anteriorly. Procedure Note Alejandro Ybarra MD - 01/18/2024 EXAM: CT HEAD W/O CONTRAST LOCATION: [facility] DATE: 01/18/2024 INDICATION: Recent mechanical fall, intoxicated. Rule out bleed. COMPARISON: CT dated 06/06/2023 TECHNIQUE: Routine CT Head without IV contrast. Multiplanar reformats.Dose reduction techniques were used. FINDINGS: Portions of the exam are degraded by motion and streak artifacts. Withinthis mild limitation: INTRACRANIAL CONTENTS: No acute intracranial hemorrhage, extra-axial fluidcollection, or mass effect. No evidence of an acute transcorticalconfluent infarct. Mild presumed chronic small vessel ischemic changes.Redemonstration of encephalomalacia involving the left anteromedial-inferior left frontal lobe, which may beposttraumatic in nature. Changes related to prior right frontoparietalcraniotomy for treatment of an arteriovenous malformation involving theright frontal lobe where there is endovascular embolization material and encephalomalacia. A leftsupraclinoid aneurysm coil mass, as before. Resultant streak artifact.Mild generalized cerebral parenchymal volume loss. No hydrocephalus. VISUALIZED SINUSES/MASTOIDS: No evidence of significant paranasal sinus ormastoid mucosal disease. BONES/SOFT TISSUES: No definite acute calvarial injury. A small leftfrontal scalp hematoma anteriorly. IMPRESSION: 1. Mildly limited exam without an acute intracranial abnormality. 2. A small left frontal scalp contusion anteriorly without a definiteacute calvarial injury. 3. Chronic and postprocedural/postoperative changes, as described. Kvng Zhao APRN INTEGRATED PROGRAM TEACHER IMG CT ORDERABLES Miri l Result * EKG 12-lead, tracing only (01/18/2024 5:33 PM CDT) Systolic Blood Pressure mmHg RADIOLOGY RESULTS Diastolic Blood Pressure mmHg RADIOLOGY RESULTS Ventricular Rate 86 BPM RAD IOLOGY RESULTS Atrial Rate 86 BPM RADIOLOG Y RESULTS IL Interval 148 ms RADIOLOG Y RESULTS QRS Duration 94 ms RADIOLO GY RESULTS QT 434 ms RADIOLOGY RESULTS QTc 519 ms RADIOLOGY RESULTS P [place] 42 degrees RADIOLOGY RESULTS R AXIS 54 degrees RADIOLOGY RESULTS T [place] 5 degrees RADIOLOGY RESULTS Interpretation ECG Sinus rhythm Possible Inferior infarct (cited on or before 07-Mar-2023) Prolonged QT Abnormal ECG When compared with ECG of 06-Jun-2023 11:14, Vent. rate has decreased by ??45 bpm Questionable change in QRS duration Unconfirmed report - interpretation of this ECG is computer generated - see medical record for final interpretation Confirmed by - EMERGENCY ROOM, PHYSICIAN ([id number]), makeup editor MARY SOLANO ([id number]) on 01/19/2024 6:51:53 AM RADIOLOGY RESULTS 01/18/2024 5:33 PM CDT 01/19/2024 6:51 AM CDT us Kvng Zhao APRN INTEGRATED PROGRAM TEACHER ECG ORDERABLES Edited Result - Final RADIOLOGY RESULTS * Ammonia (01/18/2024 4:45 PM CDT) Pathologist [facility] Ammonia 47 11 - 51 umol/L 01/18/2024 5:11 PM CDT LABORATORY Blood BLOOD SPECIMEN / Unknown Venipuncture / Unknown 01/18/2024 4:45 PM CDT 01/18/2024 4:48 PM CDT us Harvinder Aguilera MD LAB - BLOOD ORDERABLES Final Result [facility] LABORATORY [facility] [address] Lab (1st floor, no room number) [place] [address], [facility] * Magnesium (01/18/2024 4:01 PM CDT) Pathologist [facility] Magnesium 2.0 1.7 - 2.3 mg/dL 01/18/2024 5:26 PM CDT RH LABORATORY Blood BLOOD SPECIMEN / Unknown Venipuncture / Unknown 01/18/2024 4:01 PM CDT 01/18/2024 4:07 PM CDT us Kvng Zhao MANAGER CONSTRUCTION INTEGRATED PROGRAM TEACHER LAB - BLOOD ORDERABLES Final Result [facility] LABORATORY [facility] [address] Lab (1st floor, no room number) [place] [address], [facility] * (ABNORMAL) CBC with platelets and differential (01/18/2024 4:01 PM CDT) Pathologist [facility] WBC Count 9.5 4.0 - 11.0 10e3/uL 01/18/2024 4:30 PM CDT [facility] LABORATORY RBC Count 4.89 3.80 - 5.20 10e6/uL 01/18/2024 4:30 PM CDT RH LABORATORY Hemoglobin 11.3(L) 11.7 - 15.7 g/dL 01/18/2024 4:30 PM CDT RH LABORATORY Hematocrit 36.2 35.0 - 47.0 % 01/18/2024 4:30 PM CDT [facility] LABORATORY MCV 74(L) 78 - 100 fL 01/18/2024 4:30 PM CDT [facility] LABORATORY MCH 23.1(L) 26.5 - 33.0 pg 01/18/2024 4:30 PM CDT [facility] LABORATORY MCHC 31.2(L) 31.5 - 36.5 g/dL 01/18/2024 4:30 PM CDT [facility] LABORATORY RDW 18.6(H) 10.0 - 15.0 % 01/18/2024 4:30 PM CDT [facility] LABORATORY Platelet Count 264 150 - 450 10e3/uL 01/18/2024 4:30 PM CDT [facility] LABORATORY % Neutrophils 72 % 01/18/2024 4:30 PM CDT [facility] LABORAT[facility] % Lymphocytes 17 % 01/18/2024 4:30 PM CDT [facility] LABORAT[facility] % Monocytes 8 % 01/18/2024 4:30 PM CDT [facility] LABORAT[facility] % Eosinophils 2 % 01/18/2024 4:30 PM CDT [facility] LAB[facility]AT[facility] % Basophils 1 % 01/18/2024 4:30 PM CDT [facility] LABORATORY % Immature Granulocytes 0 % 01/18/2024 4:30 PM CDT [facility] LABORATORY NRBCs per 100 WBC 0 <1 /100 024 4:30 PM CDT [facility] LABORATORY Absolute Neutrophils 6.9 1.6 - 8.3 10e3/uL 01/18/2024 4:30 PM CDT [facility] LABORATORY Absolute Lymphocytes 1.6 0.8 - 5.3 10e3/uL 01/18/2024 4:30 PM CDT RH LABORATORY Absolute Monocytes 0.8 0.0 - 1.3 10e3/uL 01/18/2024 4:30 PM CDT [facility] Absolute Eosinophils 0.1 0.0 - 0.7 10e3/uL 01/18/2024 4:30 PM CDT [facility] Absolute Basophils 0.1 0.0 - 0.2 10e3/uL 01/18/2024 4:30 PM CDT [facility] Absolute Immature Granulocytes 0.0 <=0.4 10e3/uL 01/18/2024 4:30 PM CDT [facility] Absolute NRBCs 0.0 10e3/uL 01/18/2024 4:30 PM CDT [facility] Blood BLOOD SPECIMEN / Unknown Venipuncture / Unknown 01/18/2024 4:01 PM CDT 01/18/2024 4:06 PM CDT Harvinder Aguilera MD LAB - BLOOD ORDERABLES Final Result [facility] LABORATORY [facility] [address] Lab (1st floor, no room number) [place] [address], [facility] * (ABNORMAL) Ethyl Alcohol Level (01/18/2024 4:01 PM CDT) Alcohol ethyl 0.03(H) <=0.01 g/dL 01/18/2024 4:47 PM CDT [facility]AT[facility] Blood BLOOD SPECIMEN / Unknown Venipuncture / Unknown 01/18/2024 4:01 PM CDT 01/18/2024 4:07 PM CDT Harvinder Aguilera MD LAB - BLOOD ORDERABLES Final Result LABORATORY [facility] [address] Lab (1st floor, no room number) [place] [phone] * (ABNORMAL) INR (01/18/2024 4:01 PM CDT) Pathologist [facility] INR 1.30(H) 0.85 - 1.15 01/18/2024 4:40 PM CDT LABORATORY Blood BLOOD SPECIMEN / Unknown Venipuncture / Unknown 01/18/2024 4:01 PM CDT 01/18/2024 4:06 PM CDT Harvinder Aguilera MD LAB - BLOOD ORDERABLES Final Result Performing Organization Address City/[facility]/ZIP Co de Phone Number LABORATORY [facility] [address] Lab (1st floor, no room number) [place] [phone] [place] [address] * (ABNORMAL) Comprehensive metabolic panel (01/18/2024 4:01 PM CDT) Pathologist [facility] Sodium 146(H) 135 - 145 mmol/L 01/18/2024 4:50 PM CDT LABORATORY Potassium 2.6(LL) 3.4 - 5.3 mmol/L 01/18/2024 4:50 PM CDT LABORATORY Carbon Dioxide (CO2) 28 22 - 29 mmol/L 01/18/2024 4:50 PM CDT LABORATORY Anion Gap 17(H) 7 - 15 mmol/L 01/18/2024 4:50 PM CDT [facility] LAB[facility] Urea Nitrogen 18.6 8.0 - 23.0 mg/dL 01/18/2024 4:50 PM CDT LABORATORY Creatinine 0.80 0.51 - 0.95 mg/dL 01/18/2024 4:50 PM CDT LABORATORY GFR Estimate 81 >60 mL/min/1.7 3m2 01/18/2024 4:50 PM CDT [facility] Comment:eGFR calculated usin g 2020 CKD-EPI equation. Calcium 8.3(L) 8.8 - 10.4 mg/dL 01/18/2024 4:50 PM CDT [facility] Comment:Reference intervals for this test were updated on 10/11/2023 to reflect our healthy population more accurately. There may be differences in the flagging of prior results with similar values performed with this method. Those prior results can be interpreted in the context of the updated reference intervals. Chloride 101 98 - 107 mmol/L 01/18/2024 4:50 PM CDT [facility] Glucose 171(H) 70 - 99 mg/dL 01/18/2024 4:50 PM CDT [facility] Alkaline Phosphatase 188(H) 40 - 150 U/L 01/18/2024 4:50 PM CDT [facility] AST 60(H) 0 - 45 U/L 01/18/2024 4:50 PM CDT [facility] LAB[facility] ALT 39 0 - 50 U/L 01/18/2024 4:50 PM CDT [facility] Protein Total 7.9 6.4 - 8.3 g/dL 01/18/2024 4:50 PM CDT [facility] Albumin 4.4 3.5 - 5.2 g/dL 01/18/2024 4:50 PM CDT [facility] Bilirubin Total 0.2 <=1.2 mg/dL 01/18/2024 4:50 PM CDT [facility] Blood BLOOD SPECIMEN / Unknown Venipuncture / Unknown 01/18/2024 4:01 PM CDT 01/18/2024 4:07 PM CDT us Harvinder Aguilera MD LAB - BLOOD ORDERABLES Final Result [facility] LABORATORY [facility] [address] Lab (1st floor, no room number) [place] [address], [facility] * Extra Blood Bank Purple Top Tube (01/18/2024 4:01 PM CDT) [facility] Hold Specimen [facility] 01/18/2024 5:16 PM CDT [facility] LABORATORY Blood BLOOD SPECIMEN / Unknown Venipuncture / Unknown 01/18/2024 4:01 PM CDT 01/18/2024 4:07 PM CDT Harvinder Aguilera MD LAB - BLOOD ORDERABLES Final Result [facility] [address] Lab (1st floor, no room number) [place] [phone] [place] [address] * Extra Blood Bank Purple Top Tube (01/18/2024 4:01 PM CDT) Hold Specimen [facility] 01/18/2024 5:16 PM CDT [facility] LABORATORY Blood BLOOD SPECIMEN / Unknown Venipuncture / Unknown 01/18/2024 4:01 PM CDT 01/18/2024 4:07 PM CDT Harvinder Aguilera MD LAB - BLOOD ORDERABLES Final Result [facility] Lab [address] Lab (1st floor, no room number) [place] [phone] [place] [address] * Extra Purple Top Tube (01/18/2024 4:01 PM CDT) Hold Specimen [facility] 01/18/2024 5:16 PM CDT [facility] LABORATORY Blood BLOOD SPECIMEN / Unknown Venipuncture / Unknown 01/18/2024 4:01 PM CDT 01/18/2024 4:06 PM CDT Harvinder Aguilera MD LAB - BLOOD ORDERABLES Final Result [facility] [address] Lab (1st floor, no room number) [address] [place] [address] * Extra Green Top ([place] Heparin) Tube (01/18/2024 4:01 PM CDT) Hold Specimen [facility] 01/18/2024 5:16 PM CDT [facility] LABORATORY Blood BLOOD SPECIMEN / Unknown Venipuncture / Unknown 01/18/2024 4:01 PM CDT 01/18/2024 4:07 PM CDT Harvinder Aguielra MD LAB - BLOOD ORDERABLES Final Result [facility] Lab [address] Lab (1st floor, no room number) [place] [address], [facility] * Extra Red Top Tube (01/18/2024 4:01 PM CDT) Hold Specimen [facility] 01/18/2024 5:16 PM CDT [facility] LAB[facility]AT[facility] Blood BLOOD SPECIMEN / Unknown Venipuncture / Unknown 01/18/2024 4:01 PM CDT 01/18/2024 4:07 PM CDT us Harvinder Aguilera MD LAB - BLOOD ORDERABLES Final Result Performing Organization Address City/[facility]/ZIP Co de Phone Number [facility] Lab [address] Lab (1st floor, no room number) [place] [address], [facility] * Extra Blue Top Tube (01/18/2024 4:01 PM CDT) Hold Specimen [facility] 01/18/2024 5:16 PM CDT [facility] LAB[facility]AT[facility] Blood BLOOD SPECIMEN / Unknown Venipuncture / Unknown 01/18/2024 4:01 PM CDT 01/18/2024 4:06 PM CDT Harvinder Aguilera MD LAB - BLOOD ORDERABLES Final Result [facility] Lab [address] Lab (1st floor, no room number) [place] [address], [facility] documented in this encounter Visit Diagnoses Diagnosis Alcohol use disorder Drowsiness Other alteration of consciousness Hypokalemia Hypopotassemia documented in this encounter Administered Medications Inactive Administered Medications - up to 3 most recent administrations Medication Order MAR Action Action Date Dose Rate Site ondansetron (ZOFRAN) injection 4 mg 4 mg, Intravenous, ONCE, Administer over 2-5 Minutes, On Tue01/18/24 at 1720, For 1 dose $Given 01/18/2024 6:01 PM CDT 4 mg ondansetron (ZOFRAN) injection 4 mg 4 mg, Intravenous, EVERY 30 MIN PRN, nausea, vomiting, Administer over 2-5 Minutes, Starting on Tue01/18/24 at 2144, For 3 doses, May repeat in 30 minutes as needed, up to 3 doses. $Given 01/18/2024 10:08 PM CDT 4 mg potassium chloride (KLOR-CON) Packet 40 mEq 40 mEq, Oral, ONCE, On Tue01/18/24 at 1735, For 1 dose, Dissolve packet contents in 4-8 ounces of cold water or juice. $Given 01/18/2024 6:01 PM CDT 40 mEq potassium chloride 10 mEq in 100 mL sterile water infusion 10 mEq, Intravenous, Administer over 60 Minutes, at 100 mL/hr, ONCE, On Tue01/18/24 at 1705, For 1 dose $New Bag 01/18/2024 6:01 PM CDT 10 mEq 100 mL/hr sodium chloride 0.9% BOLUS 1,000 mL Intravenous, 1,000 mL, ONCE, at 1,000 mL/hr, Administer over 1 Hours, On Tue01/18/24 at 1705, For 1 dose $New Bag 01/18/2024 6:01 PM CDT 1,000 mLs 1000 mL/hr documented in this encounter Active and Recently Administered Medications Times are shown in CDT. Scheduled Medication Order 01/16/2024 01/17/2024 01/18/2024 ondansetron (ZOFRAN) injection 4 mg (COMPLETED) 4 mg, Intravenous, ONCE, Administer over 2-5 Minutes, On Tue01/18/24 at 1720, For 1 dose 180 ($Given - Provi nnamdi: Sunita Flowers RN) potassium chloride (KLOR-CON) Packet 40 mEq (COMPLETED) 40 mEq, Oral, ONCE, On Tue01/18/24 at 1735, For 1 dose, Dissolve packet contents in 4-8 ounces of cold water or juice. 180 ($Given - Provi nnamdi: Sunita Flowers RN) potassium chloride 10 mEq in 100 mL sterile water infusion (COMPLETED) 10 mEq, Intravenous, Administer over 60 Minutes, at 100 mL/hr, ONCE, On Tue01/18/24 at 1705, For 1 dose 180 ($New Bag - Pro vider: Sunita Flowers RN)2120 (Stopped - Provider: Isabel Gaitan RN) sodium chloride 0.9% BOLUS 1,000 mL (COMPLETED) Intravenous, 1,000 mL, ONCE, at 1,000 mL/hr, Administer over 1 Hours, On Tue01/18/24 at 1705, For 1 dose 180 ($New Bag - Pro vider: Sunita Flowers RN)2120 (Stopped - Provider: Isabel Gaitan RN) PRN Medication Order 01/16/2024 01/17/2024 01/18/2024 ondansetron (ZOFRAN) injection 4 mg 4 mg, Intravenous, EVERY 30 MIN PRN, nausea, vomiting, Administer over 2-5 Minutes, Starting on Tue01/18/24 at 2144, For 3 doses, May repeat in 30 minutes as needed, up to 3 doses. 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 Assessment Noted Time PHQ-9 Depression Total Score: 9 02/18/20 21 7:30 AM HOUSING MANAGEMENT REPRESENTATIVE documented as of this encounter Care Teams Bean Snapper Relationship Specialty Start Date End Date Davonte Juan APRN INTEGRATED PROGRAM TEACHER [address] [place] [address] PCP - General Family Medicine 11/15/23 Brayden Du MD [address] [place] [id number] [address] Neurology 05/06/22 Maya Alfaro MD [address] [place] [address] Internal Medicine 11/15/23 Kelsy Matthews [address] [place] [address] Geriatric Services Epidemiologist 11/15/23 (Fgs), [facility] [address] [place] [phone] 11/15/23 Davonte Juan APRN INTEGRATED PROGRAM TEACHER [address] [place] [address] Assigned PCP 11/18/23 documented as of this encounter
--- OUTSIDE RECORDS SUMMARY | 2024-02-03 03:17 | XMS_ITS | Encounter Summary ---
Author Organization [facility] Address [address] [place] [address] Care Team Providers Care Clinical Quality Assurance Associate Name Role Phone Brayden Du MD Unavailable Davonte Juan APRN VENEER PRODUCTION MACHINE OPERATOR Primary Care Pr ovider Maya Alfaro MD Unavailable [phone] Kelsy Matthews Unavailable (Fgs), [facility] shanta Apts [facility] Living Unavailable Davonte Juan APRN VENEER PRODUCTION MACHINE OPERATOR Unavailable Reason for Visit * Reason Comments Fall Encounter Details Date Type Department Care Team (Late st Contact Info) Description 01/06/2024 7:30 AM CDT Assisted Living Visit [facility] Geriatric[facility] [address] [place] [phone] Davonte Juan APRN CNP [address] [place] [address] Fall, initial encounter (Primary Dx); Intertrigo; Hypertension, [...] Assigned at Female 02/28/2021 1:24 PM DIRECTOR BUSINESS Legal Sex Female 3:43 AM DIRECTOR BUSINESS Gender Identity Female 02/28/2021 1:23 PM DIRECTOR BUSINESS Sexual Orientation Straight 02/28/2021 1: 20 PM DIRECTOR BUSINESS Occupation Industry Job Start Date Job End [...] encounter Progress Notes * Davonte Juan, LONG VENEER PRODUCTION MACHINE OPERATOR - 01/06/2024 7:30 AM CDT [facility] Place of Service where encounter took place: [facility] ([facility]) [[id number]] Chief Complaint Patient presents with Fall HPI: Sultana Mueller is a 68 year old (1955), who is being seen today for an episodic care visit. HPI information obtained from: facility chart records, facility staff, patient report, and [facility] chart review. 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 Assessment Noted Time PHQ-9 Depression Total Score: 9 02/18/20 21 7:30 AM DIRECTOR BUSINESS documented as of this encounter Care Teams Clinical Quality Assurance Associate Relationship Specialty Start Date End Date Davonte Juan APRN VENEER PRODUCTION MACHINE OPERATOR [address] [place] [address] PCP - General Family Medicine 11/15/23 Brayden Du MD [address] [place] [id number] [address] Neurology 05/06/22 Maya Alfaro MD [address] [place] [address] Internal Medicine 11/15/23 Kelsy Matthews [address] [place] [address] Geriatric Services Psychological Tests Sales Agent 11/15/23 (Fgs), [facility] [address] [place] [phone] 11/15/23 Davonte Juan APRN VENEER PRODUCTION MACHINE OPERATOR [address] [place] [address] Assigned PCP 11/18/23 documented as of this encounter
--- OUTSIDE RECORDS SUMMARY | 2024-02-03 03:17 | XMS_ITS | Encounter Summary ---
Author Organization [facility] Address [address] [place] [address]. [place] [address] Care Team Providers Care Photogrammetrist Name Role Phone Brayden Du MD Unavailable Davonte Juan APRN FIRE TOWER KEEPER Primary Care Pr ovider Maya Alfaro MD Unavailable [phone] Kelsy Matthews Unavailable + (Fgs), [facility] shanta Apts Asst Living Unavailable Davonte Juan APRN FIRE TOWER KEEPER Unavailable Encounter Details Date Type Department Care [...] Sex Assigned at Female 02/28/2021 1:24 PM GEOLOGY ASSOCIATE Legal Sex Female 3:43 AM GEOLOGY ASSOCIATE Gender Identity Female 02/28/2021 1:23 PM GEOLOGY ASSOCIATE Sexual Orientation Straight 02/28/2021 1: 20 PM GEOLOGY ASSOCIATE Occupation Industry Job Start Date Job End [...] Total Score: 9 02/18/20 21 7:30 AM GEOLOGY ASSOCIATE documented as of this encounter Care Teams Photogrammetrist Relationship Specialty Start Date End Date Davonte Juan APRN FIRE TOWER KEEPER [address] [place] [address] PCP - General Family Medicine 11/15/23 Brayden Du MD [address] [place], [place] [id number] [address] Neurology 05/06/22 Maya Alfaro MD [address] [place] [address] Internal Medicine 11/15/23 Kelsy Matthews [address] [place] [address] Geriatric Services Informatics Application Analyst 11/15/23 (Fgs), [facility] [address] [place] [phone] 11/15/23 Davonte Juan APRN FIRE TOWER KEEPER [address] [place] [address] Assigned PCP 11/18/23 documented as of this encounter
--- OUTSIDE RECORDS SUMMARY | 2024-02-03 03:17 | XMS_ITS | Encounter Summary ---
Author Organization [facility] Address [address] [place] [address] Care Team Providers Care Credit Control Manager Name Role Phone Brayden Du MD Unavailable Davonte Juan APRN REGULATORY AUDITOR Primary Care Pr ovider Maya Alfaro MD Unavailable [phone] Kelsy Matthews Unavailable + (Fgs), [facility] shanta [facility] Living Unavailable Davonte Juan APRN REGULATORY AUDITOR Unavailable Reason for Visit * Reason Comments ER F/U Encounter Details Date Type Department Care Team (Late st Contact Info) Description 01/17/2024 7:30 AM CDT Assisted Living Visit [facility] Geriatrics [address] [place] [phone] Davonte Juan APRN CNP [address] [place] [phone] Fall, subsequent encounter (Primary Dx); ETOH abuse; Intertrigo Social History Tobacco Use Types Packs/Day Years [...] Sex Assigned at Female 02/28/2021 1:24 PM OPERATOR SUPPLY Legal Sex Female 3:43 AM OPERATOR SUPPLY Gender Identity Female 02/28/2021 1:23 PM OPERATOR SUPPLY Sexual Orientation Straight 02/28/2021 1: 20 PM OPERATOR SUPPLY Occupation Industry Job Start Date Job End Date Not on file Not on file Not on file Not on file documented as of this encounter Last Filed Vital Signs Vital Sign Reading Time Taken Comments Blood Pressure 111/65 01/17/2024 11:11 AM CDT Pulse 88 01/17/2024 11:11 AM CDT Temperature - - Respiratory Rate 18 01/17/2024 11:11 AM CDT Oxygen Saturation 95% 01/17/2024 11:11 AM CDT Inhaled Oxygen Concentration - - Weight 81 kg (178 lb 9.2 oz) 01/17/2024 11:11 AM CDT Height - - Body Mass Index 30.65 01/06/2024 8:08 AM CDT documented in this encounter Progress Notes * Davonte Juan APRN CNP - 01/17/2024 7:30 AM CDT [facility] PRIMARY CARE PROVIDER AND CLINIC: Davonte Juan APRN REGULATORY AUDITOR, [address] [facility] [address] Chief Complaint Patient presents with ER F/U [facility] where encounter took place: [facility] ([facility]) [[id number]] Sultana Mueller is a 68 year old (1955), returned to the above facility from [facility] on 01/16/24. HPI: HPI information obtained from: facility chart records, facility staff, patient report, and [facility] chart review. Brief Summary of Hospital [...] Coloplast cream ineffective. 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 Assessment Noted Time PHQ-9 Depression Total Score: 9 02/18/20 21 7:30 AM OPERATOR SUPPLY documented as of this encounter Care Teams Credit Control Manager Relationship Specialty Start Date End Date Davonte Juan APRN CNP [address] [place] [address] PCP - General Family Medicine 11/15/23 Brayden Du MD [address] [place] [address] [id number] [place] [address] Neurology 05/06/22 Maya Alfaro MD [address] [place] [address] Internal Medicine 11/15/23 Kelsy Matthews [address] [place] [address] Geriatric Services Electroencephalographic Technologist 11/15/23 (Fgs), [facility] [address] [place] [phone] 11/15/23 Davonte Juan APRN REGULATORY AUDITOR [address] [place] [address] Assigned PCP 11/18/23 documented as of this encounter
--- OUTSIDE RECORDS SUMMARY | 2024-02-03 03:17 | XMS_ITS | Encounter Summary ---
Author Organization [facility] Address [address] [place] [address] Care Team Providers Care Biologics Specialist Name Role Phone Brayden Du MD Unavailable Davonte Juan APRN AGRICULTURE TEACHER Primary Care Pr ovider Maya Alfaro MD Unavailable [phone] Kelsy Matthews Unavailable + (Fgs), [facility] shanta Apts Asst Living Unavailable Davonte Juan APRN AGRICULTURE TEACHER Unavailable Reason for Visit * Reason Comments ER F/U Encounter Details Date Type Department Care Team (Late st Contact Info) Description 01/24/2024 9:00 AM CDT Assisted Living Visit [facility] [address] [place] [phone] Davonte Juan APRN CNP [address] [place] [address] [phone] Fall, subsequent encounter (Primary Dx); Primary insomnia; Lymphedema Social History Tobacco Use Types Packs/Day [...] Assigned at Female 02/28/2021 1:24 PM LEAD FRONT END DEVELOPER Legal Sex Female 3:43 AM LEAD FRONT END DEVELOPER Gender Identity Female 02/28/2021 1:23 PM LEAD FRONT END DEVELOPER Sexual Orientation Straight 02/28/2021 1: 20 PM LEAD FRONT END DEVELOPER Occupation Industry Job Start Date Job End Date Not on file Not on file Not on file Not on file documented as of this encounter Last Filed Vital Signs Vital Sign Reading Time Taken Comments Blood Pressure 108/67 01/24/2024 9:32 AM CDT Pulse 71 01/24/2024 9:32 AM CDT Temperature - - Respiratory Rate 16 01/24/2024 9:32 AM CDT Oxygen Saturation 95% 01/24/2024 9:32 AM CDT Inhaled Oxygen Concentration - - Weight 83.9 kg (185 lb) 01/24/2024 9:32 AM CDT Height - - Body Mass Index 31.76 01/21/2024 3:43 PM CDT documented in this encounter Progress Notes * Davonte Juan, LONG AGRICULTURE TEACHER - 01/24/2024 9:00 AM CDT Images from the original note were not included. [facility] of Service where encounter took place: [facility] ([facility]) [[id number]] Chief Complaint Patient presents with ER F/U HPI: Sultana Mueller is a 68 year old (1955), who is being seen today for an episodic care visit. HPI information obtained from: facility chart records, facility staff, patient report, and [facility] Epic chart review. Today's concern is: fall, insomnia, lymphedema. S/p fall in bathroom 01/21/24 with ED visit for facial trauma. Similar ED visist due to bathroom fall 01/16/24. Head, cervical spine CT neg. No etoh use prior to last fall. Reports issue may be toilet riser sit friend brought in and attempted to secure to tiolet. Has now removed toilet seat riser. Reports ongoing insomnia at times-did not sleep well last hs. Cont. On remeron, belsomra, neupro, requip. For LE edema cont. On lasix. Wt. Gen. Stable. 07/12/23 had hosp. Stay with marisela smith with IV lasix. Cont on po lasix. Not currently using compression stockings. Bmp stable. Past Medical and Surgical History reviewed in [facility] today. MEDICATIONS: Current Outpatient Medications Medication Sig [...] mouth daily REVIEW OF SYSTEMS: CONSTITUTIONAL: fatigue, body aches, and sleep disturbance, EYES: neg, ENT: neg, CV: lower extremity edema, RESPIRATORY: neg, : Nocturia, GI: neg, NEURO: L sided weakness, PSYCH: neg, MUSCULOSKELETAL: muscular weakness, and SKIN: bruising Objective: BP 108/67 Pulse 71 Resp 16 Wt 83.9 kg (185 lb) LMP (LMP Unknown) SpO2 95% BMI 31.76 kg/m?? Exam: GENERAL APPEARANCE: in no distress, cooperative, sleepy ENT: Mouth and posterior oropharynx normal, moist mucous membranes, normal hearing acuity EYES: PERRL, EOM normal, L periorbital ecchymosis NECK: no pain with ROM RESP: respiratory effort and palpation of chest normal, lungs clear to auscultation , no respiratory distress CV: Palpation and auscultation of heart done , regular rate and rhythm, no murmur, rub, or gallop, peripheral edema 2+ in Les, 1+ l hand ABDOMEN: normal bowel sounds, soft, nontender, no hepatosplenomegaly or other masses, no guarding or rebound M/S: muscle strength 5/5 RUE, gen. LE weakness. LUE weakness SKIN: forehead, L eye, jaw bruising. No bruising or LUE NEURO: Cranial nerves 2-12 are normal tested and grossly at patient's baseline, no tremor. Speech sl slurred PSYCH: oriented X 3, affect and mood normal Labs: Most Recent 3 CBC's: Recent Labs Lab Test 01/21/24 1629 01/18/24 1601 01/09/24 1004 11/16/23 0618 WBC 7.8 9.5 -- 7.1 HGB 9.7* 11.3* 10.5* 9.6* MCV 76* 74* -- 77* PLT 169 264 -- 249 Most Recent 3 BMP's: Recent Labs Lab Test 01/23/24 1210 01/21/24 1629 01/18/24 1601 NA 136 139 146* POTASSIUM 4.3 4.0 2.6* CHLORIDE 98 97* 101 CO2 28 25 28 BUN 14.4 12.8 18.6 CR 0.72 0.67 0.80 ANIONGAP 10 17* 17* MICHELLE 9.0 8.4* 8.3* GLC 80 97 171* Most Recent 2 LFT's: Recent Labs Lab Test 01/21/24 1629 01/18/24 1601 AST 26 60* ALT 20 39 ALKPHOS 209* 188* BILITOTAL 0.2 0.2 ASSESSMENT/PLAN: (W19.XXXD) Fall, subsequent encounter (primary encounter diagnosis) Comment: x2 in bathroom, 01/15. 01/20. Both with facial trauma. Unsteady toilet seat riser. Plan: 1. PT/OT eval tx. Assess for raised toile seat 2. Decrease atarax to 12.5 mg tid 3. For further falls, start staff-assisted transfers (F51.01) Primary insomnia Comment: increase in s/s last hs. Some daytime sleepiness Plan: 1. Decrease atarax dose as above 2. Cont. Belsomra, remeron, requip, Neupro 3. For ongoing daytime sleepiness, may decrease belsomra dose (I89.0) Lymphedema Comment: ongoing LE edema. L hand edema. H/o anasarca Plan: 1. Cont. Wt. 3x/week 2. Cont. Lasix 3. Start compression stockings to Les, compression sleeve to L hand Electronically signed by: Davonte Juan APRN CNP Documentation of Rngi-ir-Erov and Certification for Home Health Services Patient: Sultana Mueller Date of : 1955 MR Number: [id number] Today's Date: 01/24/2024 I certify that patient: Sultana Mueller is under my care and that I, or a nurse practitioner or physician's automotive parts counter assistant working with me, had a ptel-cb-mvol encounter that meets the physician qtoi-ko-kqed encounter requirements with this patient on: 01/24/2024. This encounter with the patient was in whole, or in part, for the following medical condition, which is the primary reason for home health care: falls, tiolet seat assessment. I certify that, based on my findings, the following services are medically necessary home health services: Occupational Therapy and Physical Therapy. My clinical findings support the need for the above services because: Occupational Therapy Servicesare needed to assess and treat cognitive ability and address ADL safety due to impairment in mobility. and Physical Therapy Services are needed to assess and treat the following functional impairments: falls. Further, I certify that my clinical findings support that this patient is homebound (i.e. absences from home require considerable and taxing effort and are for medical reasons or caodaism services or infrequently or of short duration when for other reasons) because: Requires assistance of another person or specialized equipment to access medical services because patient: non-amb... Based on the above findings. I certify that this patient is confined to the home and needs intermittent jail care, physical therapy and/or speech therapy. The patient is under my care, [place] have initiated the establishment of the plan of care. This patient will be followed by a physician who will periodically review the plan of care. Physician/Provider to provide follow up care: Davonte Juan Responsible Medicare certified [facility] Physician: Maya Alfaro Physician Signature: See electronic signature associated with these discharge orders. 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 Assessment Noted Time PHQ-9 Depression Total Score: 9 02/18/20 21 7:30 AM LEAD FRONT END DEVELOPER documented as of this encounter Care Teams Biologics Specialist Relationship Specialty Start Date End Date Davonte Juan APRN AGRICULTURE TEACHER [address] [place] [address] PCP - General Family Medicine 11/15/23 Brayden Du MD [address] [place] [id number] [address] Neurology 05/06/22 [place] [address] [place] [address] Internal Medicine 11/15/23 Kelsy Matthews [address] [place] [phone] Geriatric Services Planning Manager 11/15/23 (Fgs), [facility] Senior [facility] Living [address] [place] [phone] 11/15/23 Davonte Juan APRN AGRICULTURE TEACHER [address] [place] [address] Assigned PCP 11/18/23 documented as of this encounter
--- OUTSIDE RECORDS SUMMARY | 2024-02-03 03:17 | XMS_ITS | Encounter Summary ---
Author Organization [facility] Address [address] [place] [address]. [place] [address] Care Team Providers Care Seed Sales Manager Name Role Phone Brayden Du MD Unavailable Davonte Juan APRN TRIMMER MACHINE Primary Care Pr ovider Maya Alfaro MD Unavailable [phone] Kelsy Matthews Unavailable + (Fgs), [facility] shanta Apts Asst Living Unavailable Davonte Juan APRN TRIMMER MACHINE Unavailable Reason for Visit * Reason Onset Date Comments Fall 01/16/2024 Encounter Details Date Type Department Care Team (Late st Contact Info) Description 01/16/2024 Telephone [facility] [address] [place] [phone] Isma Michel, FILIPPO Fall Social History Tobacco [...] Sex Assigned at Female 02/28/2021 1:24 PM COMMUNICABLE DISEASE SPECIALIST Legal Sex Female 3:43 AM COMMUNICABLE DISEASE SPECIALIST Gender Identity Female 02/28/2021 1:23 PM COMMUNICABLE DISEASE SPECIALIST Sexual Orientation Straight 02/28/2021 1: 20 PM COMMUNICABLE DISEASE SPECIALIST Occupation Industry Job Start Date Job End [...] taken to the ER for evaluation. Primary STEEPING PRESS TENDER updated. 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 Assessment Noted Time PHQ-9 Depression Total Score: 9 02/18/20 21 7:30 AM COMMUNICABLE DISEASE SPECIALIST documented as of this encounter Care Teams Seed Sales Manager Relationship Specialty Start Date End Date Davonte Juan APRN TRIMMER MACHINE [facility] [place] [address] PCP - General Family Medicine 11/15/23 Brayden Du MD [address] [place], [place] [id number] [address] Neurology 05/06/22 Maya Alfaro MD [facility] [place] [address] Internal Medicine 11/15/23 Kelsy Matthews [address] [place] [address] Geriatric Services Angle Shearer 11/15/23 (Fgs), [facility] Senior [facility] Living [address] [place] [phone] 11/15/23 Davonte Juan APRN TRIMMER MACHINE [address] [place] [address] Assigned PCP 11/18/23 documented as of this encounter
--- OUTSIDE RECORDS SUMMARY | 2024-02-03 03:17 | XMS_ITS | Encounter Summary ---
Author Organization [facility] Address [address] [place] [address] Care Team Providers Care Journeyman Carpenter Name Role Phone Brayden Du MD Unavailable Davonte Juan APRN FISHING BOAT MATE Primary Care Pr ovider Maya Alfaro MD Unavailable [phone] Kelsy Matthews Unavailable + (Fgs), [facility] Living Unavailable Davonte Juan APRN, CNP Unavailable Encounter Details Date Type Department Care Team (Late st Contact Info) Description 12/13/2023 Telephone [facility] [address] [place] [address] Davonte Juan APRN FISHING BOAT MATE [address] [place], [place] [phone] Social History Tobacco Use Types Packs/Day [...] Assigned at Female 02/28/2021 1:24 PM MANAGER TALENT ACQUISITION Legal Sex Female 3:43 AM MANAGER TALENT ACQUISITION Gender Identity Female 02/28/2021 1:23 PM MANAGER TALENT ACQUISITION Sexual Orientation Straight 02/28/2021 1: 20 PM MANAGER TALENT ACQUISITION Occupation Industry Job Start Date Job End [...] Score: 9 02/18/20 21 7:30 AM MANAGER TALENT ACQUISITION documented as of this encounter Care Teams Journeyman Carpenter Relationship Specialty Start Date End Date Davonte Juan APRN FISHING BOAT MATE [address] [place] [address] PCP - General Family Medicine 11/15/23 Brayden Du MD [address] [place], [place] [address] [address] Neurology 05/06/22 Maya Alfaro MD [address] [place] [address] Internal Medicine 11/15/23 Kelsy Matthews [address] [place] [address] Geriatric Services Tree Fruit [employer] Nut Crops Farmer 11/15/23 (Fgs), [facility] Senior Apts [facility] Living [address] [place] [phone] 11/15/23 Davonte Juan APRN FISHING BOAT MATE [address] [place] [address] Assigned PCP 11/18/23 documented as of this encounter
--- OUTSIDE RECORDS SUMMARY | 2024-02-03 03:17 | XMS_ITS | Encounter Summary ---
Author Organization [facility] Address [address] [place] [address]. [place] [address] Care Team Providers Care Safety Companion Name Role Phone Brayden Du MD Unavailable Davonte Juan APRN SCHOOL STANDARDS COACH Primary Care Pr ovider Maya Alfaro MD Unavailable [phone] Kelsy Matthews Unavailable (Fgs), [facility] Se womack Apts Asst Living Unavailable Davonte Juan APRN SCHOOL STANDARDS COACH Unavailable Reason for Visit * Reason Onset Date Comments Prior Auth - Medication 12/20/2023 hydrOXYz ine HCl (ATARAX) 25 MG tablet Encounter Details Date Type Department Care Team (Late st Contact Info) Description 12/20/2023 Telephone [facility] [address] [place] [phone] Daovnte Juan APRN [address] [address] Prior Auth - Medication (hydrOXYzine HCl (ATARAX) [...] Assigned at Female 02/28/2021 1:24 PM FIRE ALARM INSPECTOR Legal Sex Female 3:43 AM FIRE ALARM INSPECTOR Gender Identity Female 02/28/2021 1:23 PM FIRE ALARM INSPECTOR Sexual Orientation Straight 02/28/2021 1: 20 PM FIRE ALARM INSPECTOR Occupation Industry Job Start Date Job End [...] Total Score: 9 02/18/20 21 7:30 AM FIRE ALARM INSPECTOR documented as of this encounter Care Teams Safety Companion Relationship Specialty Start Date End Date Davonte Juan APRN SCHOOL STANDARDS COACH [address] [place] [address] PCP - General Family Medicine 11/15/23 Brayden Du MD [address] [facility] [id number] [address] Neurology 05/06/22 Maya Alfaro MD [address] [place] [address] Internal Medicine 11/15/23 Kelsy Matthews [address] [place] [address] Geriatric Services Cyber Security Architect 11/15/23 (Fgs), [facility] Apts Asst Living [address] [place] [phone] 11/15/23 Davonte Juan APRN SCHOOL STANDARDS COACH [address] [place] [address] Assigned PCP 11/18/23 documented as of this encounter
--- OUTSIDE RECORDS SUMMARY | 2024-02-03 03:17 | XMS_ITS | Encounter Summary ---
Author Organization [facility] Address [address] [place] [address] Care Team Providers Care Fire Range Technician Name Role Phone Brayden Du MD Unavailable Davonte Juan APRN HOME STAGER Primary Care Pr ovider Maya Alfaro MD Unavailable [phone] Kelsy Matthews Unavailable + (Fgs), [facility] shanta Apts Asst Living Unavailable Davonte Juan APRN HOME STAGER Unavailable Reason for Visit * Reason Onset Date Comments Refill Request 01/27/2024 Encounter Details Date Type Department Care Team (Late st Contact Info) Description 01/27/2024 Refill [facility] [address] [place] [phone] Davonte Juan APRN CNP [address] [place] [address] Refill Request Social History Tobacco Use Types [...] Sex Assigned at Female 02/28/2021 1:24 PM CARPENTER PACKING Legal Sex Female 3:43 AM CARPENTER PACKING Gender Identity Female 02/28/2021 1:23 PM CARPENTER PACKING Sexual Orientation Straight 02/28/2021 1: 20 PM CARPENTER PACKING Occupation Industry Job Start Date Job End [...] Total Score: 9 02/18/20 21 7:30 AM CARPENTER PACKING documented as of this encounter Care Teams Fire Range Technician Relationship Specialty Start Date End Date Davonte Juan APRN HOME STAGER [address] [place] [address] PCP - General Family Medicine 11/15/23 Brayden Du MD [address] [place], [place] [id number] [address] Neurology 05/06/22 Maya Alfaro MD [address] [place] [address] Internal Medicine 11/15/23 Kelsy Matthews [address] [place] [address] Geriatric Services Supervisor Pipeline 11/15/23 (Fgs), [facility] [address] [place] [phone] 11/15/23 Davonte Juan APRN HOME STAGER [address] [place] [address] Assigned PCP 11/18/23 documented as of this encounter
--- OUTSIDE RECORDS SUMMARY | 2024-02-03 03:17 | XMS_ITS | Referral Summary ---
Author Organization [place] Address [address] [place] [address]. 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 Name Role Phone Brayden Du MD Unavailable Davonte Juan APRN, CNP Primary Care Pr ovider Maya Alfaro MD Unavailable [phone] Kelsy Matthews Unavailable + (Fgs), [facility] shanta Apts Asst Living Unavailable Davonte Juan APRN, CNP Unavailable + Encounters Date Type Department Care Team Description 01/27/2024 Refill [facility] Geriatrics [address] [place] [phone] Davonte Juan APRN CNP Refill Request 01/24/2024 Travel 01/24/2024 9:00 AM CDT Assisted Living Visit [address] [address] Davonte Juan APRN CNP Fall, subsequent encounter (Primary Dx); Primary insomnia; Lymphedema 01/21/2024 Travel 01/21/2024 3:39 PM CDT - 01/21/2024 7:52 PM CDT Emergency [facility] Emergency Dept [address] [place] [address] Cheo Gao MD Injury of head, initial encounter; Injury of jaw, initial encounter Discharge Disposition: Home or Self Care 01/20/2024 Travel 01/20/2024 8:00 AM CDT Assisted Living Visit [facility] [address] [place] [phone] Davonte Juan APRN CNP ETOH abuse (Primary Dx); Lymphedema; Primary insomnia 01/18/2024 Travel 01/18/2024 3:49 PM CDT - 01/18/2024 11:16 PM CDT Emergency [facility] Emergency Dept [address] [place] [address] Harvinder Aguilera MD Alcohol use disorder; Drowsiness; Hypokalemia Discharge Disposition: Home or Self Care 01/17/2024 Travel 01/17/2024 7:30 AM CDT Assisted Living Visit [address] [phone] Davonte Juan APRN CNP Fall, subsequent encounter (Primary Dx); ETOH abuse; Intertrigo 01/16/2024 Telephone [facility] [address] [place] [phone] Isma Michel RN Fall 01/06/2024 Travel 01/06/2024 7:30 AM CDT Assisted Living Visit [address] [address] Davonte Juan APRN CNP Fall, initial encounter (Primary Dx); Intertrigo; Hypertension, unspecified type 01/03/2024 Telephone [facility] [address] [place] [phone] Ritu Dennis RN Patient Request 12/27/[address] [address] Davonte Juan APRN CNP Prior Auth - Medication ( hydrOXYzine HCl (ATARAX) 25 MG tablet ) 12/23/2023 Travel 12/23/2023 7:00 AM CDT Assisted Living Visit [facility] [address] [place] [phone] Davonte Juan APRN CNP Decreased responsiveness (Primary Dx); Major depressive disorder, recurrent episode, moderate (H); Lymphedema 12/20/[address] [address] Davonte Juan APRN CNP Prior Auth - Medication (hydrOXYzine HCl (ATARAX) 25 MG tablet) 12/13/[address] [address] Davonte Juan APRN CNP 12/06/2023 Travel 12/06/2023 8:30 AM CDT Assisted Living Visit [address] [address] Davonte Juan APRN CNP Lymphedema (Primary Dx); Hypertension, unspecified type; Primary insomnia 12/02/[address] [address] Davonte Juan APRN CNP 12/01/2023 Orders Only [address] [address] Davonte Juan APRN CNP DIAGNOSIS NOT YET DEFINED (Primary Dx) 11/23/[address] [address] Katie Chicas RN Dysuria 11/18/2023 Travel 11/18/2023 8:30 AM CDT Assisted Living Visit [address] [address] Davonte Juan APRN CNP Left hemiparesis (H) (Primary Dx); Lymphedema; Dermatitis 11/17/[address] [address] Ritu Dennis RN Refill Request 11/17/[address] [address] Ritu Dennis RN Refill Request 11/15/2023 Travel 11/15/2023 Documentation Only [address] [phone] Kelsy Matthews Geriatrics Tracker 11/15/2023 8:00 AM CDT Assisted Living Visit [address] [address] Davonte Juan, LONG BHAT Hypertension, unspecified type [...] every hour as needed for smoking cessation Active calcium carbonate (TUMS) 500 MG chewable tablet Take 1 tablet (500 mg) by mouth daily Active polyethylene glycol (MIRALAX) 17 GM/Dose powderIndicatio [...] on dilantin and sees neurology at [facility] History of migraine 09/19/2012 Resolved Problems Problem Noted Date Diagnosed Date Resolved Date Polysubstance abuse 09/04/2013 07/25/19 15 Alcohol abuse, episodic drinking behavior 08/30/2013 07/24/2014 Health [facility] 09/19/2012 09/12/2023 Overview (02/02/2013): State Tier Level: Tier 1 Status: N/A 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 Specialist Home Health: N/A See Letters for [facility] Care Plan Adjustment disorder with mix ed anxiety and depressed mood 09/19/2012 04/07/2016 Overview (09/19/2012): Dxed at 20 y0 Immunizations Name Administration [...] Sex Assigned at Female 02/28/2021 1:24 PM [employer] Legal Sex Female 3:43 AM [employer] Gender Identity Female 02/28/2021 1:23 PM [employer] Sexual Orientation Straight 02/28/2021 1: 20 PM [employer] Occupation Industry Job Start Date Job End [...] 01/21/2024 3:43 PM CDT Plan of Treatment Not on file Medical Devices Implanted Type Area Integration Aide Device Identifier Shelf Expiration Date Model / Serial / Lot Imp Scr Syn Lcp Dist 2.7x12mm Self Tap Ss 202.212 - [id number] Implanted:Qty: 1 on 10/24/2020 by Quentin Pritchett MD at [facility] Metallic Hardware/An chor Left: Ankle SYNTHES-STRATEC / / [id number] Imp Scr Syn Lcp Dist 2.7x14mm Self Tap Ss 202.214 - [id number] Implanted:Qty: 1 on 10/24/2020 by Quentin Pritchett MD at [facility] Metallic Hardware/An chor Left: Ankle SYNTHES-STRATEC 202.214 / / [id number] 21 Imp Scr Syn Lcp Dist 2.7x16mm Self Tap Ss 202.216 - [id number] Implanted:Qty: 3 on 10/24/2020 by Quentin Pritchett MD at [facility] Metallic Hardware/An chor Left: Ankle SYNTHES-STRATEC 202.216 / / [id number] 21 Imp Scr Syn Cortex 2.7x32mm Self Tap Ss 202.832 - [id number] Implanted:Qty: 1 on 10/24/2020 by Quentin Pritchett MD at [facility] Metallic Hardware/An chor Left: Ankle SYNTHES-STRATEC 202.832 / / [id number] L2021 Imp Scr Syn 3.5x12mm Locking W/Stardrive Ss 212.102 - [id number] Implanted:Qty: 2 on 10/24/2020 by Quentin Pritchett MD at [facility] Metallic Hardware/An chor Left: Ankle SYNTHES-STRATEC 212.102 / / [id number] L2021 Imp Scr Syn Cortex 3.5x16mm Self Tap Ss 204.816 - [id number] Implanted:Qty: 1 on 10/24/2020 by Quentin Pritchett MD at [facility] Metallic Hardware/An chor Left: Ankle SYNTHES-STRATEC 204.816 / / [id number] L2021 Imp Scr Syn Cortex 3.5x28mm Self Tap Ss 204.828 - [id number] Implanted:Qty: 1 on 10/24/2020 by Quentin Pritchett MD at [facility] Metallic Hardware/An chor Left: Ankle SYNTHES-STRATEC 204.828 / / [id number] L2021 Imp Scr Syn Cortex 3.5x38mm Self Tap Ss 204.838 - [id number] Implanted:Qty: 1 on 10/24/2020 by Quentin Pritchett MD at [facility] Metallic Hardware/An chor Left: Ankle SYNTHES-STRATEC 204.838 / / [id number] L2021 Imp Scr Syn Can 4.0x40mm Long Thrd Ss 207.740 - [id number] Implanted:Qty: 1 on 10/24/2020 by Quentin Pritchett MD at [facility] Metallic Hardware/An chor Left: Ankle SYNTHES-STRATEC 207.740 / / [id number] L2021 Imp Wire Margarita 0.045x4 78.2020 - [id number] Implanted:Qty: 1 on 10/24/2020 by Quentin Pritchett MD at [facility] Wire Left: Ankle G SOURCE 78.202 / / 4.0mm Ti Locking Screww/T25 Implanted:Qty: 1 on 01/16/2014 by Bayron Can MD at [facility] Left: Humerus SYNTHES 08/27/2019 04.005.4 44S / / [id number] 4.5mm Ti Multiloc Screw 42mm Implanted:Qty: 1 on 01/16/2014 by Bayron Can MD at [facility] Left: Humerus SYNTHES 03/28/2022 04.019.0 42S / / [id number] 4.5mm Ti Mulitloc Screw 38mm Implanted:Qty: 1 on 01/16/2014 by Bayrno Can MD at [facility] Left: Humerus SYNTHES 02/25/2022 04.019.0 38S / / [id number] 4.0mm Ti Locking Screw 24mm Implanted:Qty: 1 on 01/16/2014 by Bayron Can MD at [facility] Left: Humerus SYNTHES 08/26/2022 04.005.4 14S / / [id number] 4.0mm Ti Locking Screw 26mm Implanted:Qty: 1 on 01/16/2014 by Bayron Can MD at [facility] Left: Humerus SYNTHES 12/26/2021 04.005.4 16S / / [id number] Ti Multiloc End Cap Implanted:Qty: 1 on 01/16/2014 by Bayron Can MD at [facility] Left: Humerus SYNTHES 11/26/2022 04.019.0 00S / / [id number] 4.5mmti Multiloc Screw 38mm Implanted:Qty: 1 on 01/16/2014 by Bayron Can MD at [facility] Left: Humerus SYNTHES 02/25/2023 04.019.0 38S / / [id number] 3.5mm Lcp Hook Plate Implanted:Qty: 1 on 10/24/2020 by Quentin Pritchett MD at [facility] Left: Ankle SYNTHES 02.113.1 032 [id number] 2.7mm/3.5mm Lcp Posterolateral Distal Fibula Plates Implanted:Qty: 1 on 10/24/2020 by Quentin Pritchett MD at [facility] Left: Ankle SYNTHES 02.112.1 8001 [id number] Procedures Procedure Name Priority Date/Time Associated [...] Routine 01/09/2024 10:04 AM CDT Edema, unspecified SD CERTIFICATION FIELD SERVICES ANALYST PATIENT Routine 12/01/2023 DIAGNOSIS NOT YET DEFINED [...] PANEL (BFP) Routine 02/24/2021 3:3 5 PM [employer] Mixed hyperlipidemia MA DIAGNOSTIC BILATERAL W/ JESSE Routine 12/09/2017 THINPREP PAP RFLX HPV MRNA E6/E7 ([facility]) Routine 03/04/2017 3:13 PM [employer] Encounter for gynecological examination without abnormal finding HEPATITIS C ANTIBODY Routine 04/07/2016 3:32 PM [employer] Need for hepatitis C screening test DRUG ABUSE SCREEN 8 URINE (UR) STAT 01/26/2006 2:35 PM [employer] from Last 3 Months or Most Recently Relevant to Health Maintenance Results * Trip Charge - LAB ONLY (01/23/2024 12:10 PM CDT) Only the most recent of4 resultswithin the time period is included. Other TOPOGRAPHY UNKNOWN / Unknown Billing only / Unknown 01/23/2024 12:10 PM CDT 01/23/2024 2:13 PM CDT Davonte Juan FORM SETTER/DRIVER [facility] CHARGE PERFO RMABLES Final Result [facility] [address] [place] [address], [facility] * Basic Metabolic Panel No Glucose (OUTREACH) [...] 01/23/2024 2:13 PM CDT Davonte Juan APRN [facility] - BLOOD ORDE RABLES Final Result LABORATORY [facility] Core Lab [address] [facility], Room [address] [phone] * Glucose (OUTREACH) (01/23/2024 12:10 PM CDT) Only the most recent of3 resultswithin the time period is included. Glucose 80 70 - 99 mg/dL 01/23/2024 7:09 PM CDT [facility] Blood STRUCTURE OF LEFT UPPER LIMB / Unknown Venipuncture / Unknown 01/23/2024 12:10 PM CDT 01/23/2024 2:13 PM CDT Davonte Juan APRN [facility] - BLOOD ORDE RABLES Final Result U LABORATORY [facility] [place] [facility] [address] [facility], Room [address] [place] [address], [facility] * Ammonia (01/21/2024 5:48 PM CDT) Only the most recent of2 resultswithin the time period is included. Ammonia 20 11 - 51 umol/L 01/21/2024 6:12 PM CDT LABORATORY Blood STRUCTURE OF RIGHT UPPER LIMB / Unknown Venipuncture / Unknown 01/21/2024 5:48 PM CDT 01/21/2024 5:53 PM CDT us Cheo Gao MD LAB - BLOOD ORDERABLES Final Result [facility] [address] (1st floor, no room number) [place] [address], [facility] * CT Head w/o Contrast (01/21/2024 [...] CONTRAST, CT CERVICAL SPINE W/O CONTRAST LOCATION: [facility] DATE: 01/21/2024 INDICATION: fall, left forehead [...] CONTRAST, CT CERVICAL SPINE W/O CONTRAST LOCATION: [facility] DATE: 01/21/2024 INDICATION: fall, left forehead [...] CONTRAST, CT CERVICAL SPINE W/O CONTRAST LOCATION: [facility] DATE: 01/21/2024 INDICATION: fall, left forehead [...] CONTRAST, CT CERVICAL SPINE W/O CONTRAST LOCATION: [facility] DATE: 01/21/2024 INDICATION: fall, left forehead [...] post traumatic subluxation. us Cheo Gao MD IM CT ORDERABLES Final Resu lt * (ABNORMAL) [...] - BLOOD ORDERABLES Final Result RH LABORATORY [facility] Acute Care Lab [address] Lab (1st floor, no room number) [place] [address], [facility] * (ABNORMAL) CBC with platelets and differential (01/21/2024 4:29 PM CDT) Only the most recent of2 resultswithin the time period is included. WBC Count 7.8 4.0 - 11.0 10e3/uL [...] LAB - BLOOD ORDERABLES Final Result LABORATORY [facility] Acute [facility] Lab [address] Lab (1st floor, no room number) [place] [address], [facility] * Magnesium (01/21/2024 4:29 PM CDT) Only the most recent of2 resultswithin the time period is included. Magnesium 1.9 1.7 - 2.3 mg/dL 01/21/2024 5:01 PM CDT [facility] LABORATORY Blood BLOOD SPECIMEN / Unknown Venipuncture / Unknown 01/21/2024 4:29 PM CDT 01/21/2024 4:39 PM CDT Cheo Gao MD LAB - BLOOD ORDERABLES Final Result [facility] LABORATORY [facility] Acute [facility] Lab [address] [facility] Lab (1st floor, no room number) [place] [address], [facility] * (ABNORMAL) Comprehensive metabolic panel (01/21/2024 4:29 [...] ORDERABLES Final Result Performing Organization Address City/[facility]/ZIP Co de Phone Number [facility] Lab [address] Lab (1st floor, no room number) [place] [phone] * Ethyl Alcohol Level (01/21/2024 4:29 PM CDT) Only the most recent of2 resultswithin the time period is included. Alcohol ethyl <0.01 <=0.01 g/dL 01/21/2024 5:01 PM CDT RH LABORATORY Blood BLOOD SPECIMEN / Unknown Venipuncture / Unknown 01/21/2024 4:29 PM CDT 01/21/2024 4:39 PM CDT Cheo Gao MD LAB - BLOOD ORDERABLES Final Result [facility] Lab [address] Lab (1st floor, no room number) [place] [address] * EKG 12-lead, tracing only (01/18/2024 5:33 PM CDT) Systolic Blood Pressure mmHg RADIOLOGY RESULTS Diastolic Blood Pressure mmHg RADIOLOGY RESULTS Ventricular Rate 86 BPM RAD IOLOGY RESULTS Atrial Rate 86 BPM RADIOLOG Y RESULTS SD Interval 148 ms RADIOLOG Y RESULTS QRS Duration 94 ms RADIOLO GY RESULTS QT 434 ms RADIOLOGY RESULTS QTc 519 ms RADIOLOGY RESULTS P [place] 42 degrees RADIOLOGY RESULTS R AXIS 54 degrees RADIOLOGY RESULTS T [place] 5 degrees RADIOLOGY RESULTS Interpretation ECG Sinus rhythm Possible Inferior infarct (cited on or before 07-Mar-2023) Prolonged QT Abnormal ECG When compared with ECG of 06-Jun-2023 11:14, Vent. rate has decreased by ??45 bpm Questionable change in QRS duration Unconfirmed report - interpretation of this ECG is computer generated - see medical record for final interpretation Confirmed by - EMERGENCY ROOM, PHYSICIAN ([id number]), international editorial producer MARY SOLANO ([id number]) on 01/19/2024 6:51:53 AM RADIOLOGY RESULTS 01/18/2024 5:33 PM CDT 01/19/2024 6:51 AM CDT Kvng Zhao APRN, CNP ECG ORDERABLES Edited Result - Final RADIOLOGY RESULTS * Extra Blood Bank Purple Top Tube (01/18/2024 4:01 PM CDT) Only the most recent of2 resultswithin the time period is included. Hold Specimen [facility] 01/18/2024 5:16 PM CDT RH LABORATORY Blood BLOOD SPECIMEN / Unknown Venipuncture / Unknown 01/18/2024 4:01 PM CDT 01/18/2024 4:07 PM CDT Harvinder Aguilera MD LAB - BLOOD ORDERABLES Final Result LABORATORY [facility] Lab [address] Lab (1st floor, no room number) [place] [address], [facility] * Extra Purple Top Tube (01/18/2024 4:01 PM CDT) Hold Specimen [facility] 01/18/2024 5:16 PM CDT LABORATORY Blood BLOOD SPECIMEN / Unknown Venipuncture / Unknown 01/18/2024 4:01 PM CDT 01/18/2024 4:06 PM CDT Harvinder Aguilera MD LAB - BLOOD ORDERABLES Final Result [facility] Lab [address] Lab (1st floor, no room number) [place] [phone] [place] [address] * Extra Green Top ([place] Heparin) Tube (01/18/2024 4:01 PM CDT) Hold Specimen [facility] 01/18/2024 5:16 PM CDT RH LABORATORY Blood BLOOD SPECIMEN / Unknown Venipuncture / Unknown 01/18/2024 4:01 PM CDT 01/18/2024 4:07 PM CDT Harvinder Aguilera MD LAB - BLOOD ORDERABLES Final Result Performing Organization Address City/[facility]/ZIP Co de Phone Number [facility] Lab [address] Lab (1st floor, no room number) [place] [address] * Extra Red Top Tube (01/18/2024 4:01 PM CDT) Hold Specimen [facility] 01/18/2024 5:16 PM CDT RH LABORATORY Blood BLOOD SPECIMEN / Unknown Venipuncture / Unknown 01/18/2024 4:01 PM CDT 01/18/2024 4:07 PM CDT Harvinder Aguilera MD LAB - BLOOD ORDERABLES Final Result Performing Organization Address City/[facility]/ZIP Co de Phone Number [facility] Lab [address] Lab (1st floor, no room number) [place] [address] * Extra Blue Top Tube (01/18/2024 4:01 PM CDT) Hold Specimen [facility] 01/18/2024 5:16 PM CDT RH LABORATORY Blood BLOOD SPECIMEN / Unknown Venipuncture / Unknown 01/18/2024 4:01 PM CDT 01/18/2024 4:06 PM CDT Harvinder Aguilera MD LAB - BLOOD ORDERABLES Final Result LABORATORY [facility] Care Lab [address] Lab (1st floor, no room number) [place] [address] * (ABNORMAL) INR (01/18/2024 4:01 PM CDT) INR 1.30(H) 0.85 - 1.15 01/18/2024 4:40 PM CDT LABORATORY Blood BLOOD SPECIMEN / Unknown Venipuncture / Unknown 01/18/2024 4:01 PM CDT 01/18/2024 4:06 PM CDT Harvinder Aguilera MD LAB - BLOOD ORDERABLES Final Result LABORATORY [facility] Lab [address] Lab (1st floor, no room number) [place] [address] * (ABNORMAL) Hemoglobin (01/09/2024 10:04 AM CDT) Hemoglobin 10.5(L) 11.7 - 15.7 g/dL 01/09/2024 4:38 PM CDT LABORATORY Blood STRUCTURE OF LEFT UPPER LIMB / Unknown Venipuncture / Unknown 01/09/2024 10:04 AM CDT 01/09/2024 2:40 PM CDT Davonte Juan APRN, CNP LAB - BLOOD ORDE RABLES Final Result U LABORATORY [facility] [place] [facility] Lab [address] [facility], [address] [place] [address], [facility] * CERTIFICATION FIELD SERVICES ANALYST PATIENT (12/01/2023) Davonte Juan APRN, CNP SPECIAL REPORTS Final Result [...] 11/23/2023 9:59 PM CDT [facility] LAB[facility]ATORY Specific [place] Urine 1.013 1.003 - 1.035 11/23/2023 9:59 [...] 11/23/2023 6:18 PM CDT Davonte Juan APRN [facility] - URINE ORDE RABLES Final Result [facility] LABORATORY [facility] [place] [facility] Lab [address] [facility] Room [address] [address] * (ABNORMAL) Urine Culture (11/23/2023 [...] pneumoniae Cefazolin JANICE <=4 ug/mL: Susceptible Comment:Cefazolin [place] C breakpoints are for the treatment of [...] JANICE <=1/19 ug/mL: Susceptible Davonte Juan APRN [facility] - MICRO GENE RAL ORDERABLES Final Result [facility] IDD LABORATORY [facility] Inf. Diseases Diag. Lab [address] [facility], [address] [place] [phone] * (ABNORMAL) Hemoglobin A1c (11/16/2023 6:18 AM CDT) [facility] Hemoglobin A1C 5.8(H) <5.7 % 11/16/2023 12:08 PM CDT [facility] LAB[facility] Comment: Normal <5.7% Prediabetes 5.7-6.4% ?? Diabetes 6.5% or higher Note: Adopted from ADA consensus guidelines. Blood STRUCTURE OF RIGHT UPPER LIMB / Unknown Venipuncture / Unknown 11/16/2023 6:18 AM CDT 11/16/2023 8:09 AM CDT Davonte Juan APRN [facility] - BLOOD ORDE ALAN Final Result [facility] LAB[facility] [place] [facility] Lab [address] [facility], Room 3[address] * (ABNORMAL) CBC with platelets (11/16/2023 6:18 AM CDT) [facility] WBC Count 7.1 4.0 - 11.0 [...] 11/16/2023 8:09 AM CDT Davonte Juan APRN [facility] - BLOOD ORDE ALAN Final Result Performing Organization Address [facility]/ZIP Co de Phone Number [facility] LABORAT[facility] [place] [facility] Lab [address] [facility], [address] * Insulin level (11/10/2023 6:33 AM CDT) Insulin 5.7 2.6 - 24.9 uU/mL 11/10/2023 12:12 PM CDT [facility] LAB[facility] Blood STRUCTURE OF LEFT HAND / Unknown Venipuncture / Unknown 11/10/2023 6:33 AM CDT 11/10/2023 9:14 AM CDT Anette Valencia MD LAB - BLOOD ORDERABLES Final R esult Performing Organization Address City/[facility]/ZIP Co de Phone Number [facility] LABORATORY [facility] Core Lab [address] [facility], [address] * (ABNORMAL) Lipid Panel (BFP) (02/24/2021 3:35 PM [employer]) Cholesterol 307(A) 0 - 199 mg/dL [facility] INTERNAL Triglycerides 369(A) 0 - 149 mg/dL [facility] HDL Cholesterol 108 40 - 150 mg/dL [facility] LDL Cholesterol Direct 125 0 - 130 mg/dL [facility] Cholesterol/HDL Ratio 3 0 - 5 [facility] INTER[facility] Blood 02/24/2021 3:35 PM [employer] Alek Jones MD LAB - NON-[facility] LABS Final Result [facility] INTERNAL [address] [place] [address], [facility] * MA Diagnostic Bilateral w/Jesse (12/09/2017) MAMMOGRAM Anatomical Region Laterality Modality Breast Bilateral Other Narrative 12/09/2017 [facility] [place] Phone: [phone] * Fax: [phone] [address] [place] [id number] [place] [address] Age: 62 Y Dept No.: [id number] LEO MUELLER : 1955 Chart # Gender: F Req. Phys: Alek Jones MD Clinic MRN: Clinic: [facility] Acc#: [id number] Exam: MAMMOGRAM SCREENING JESSE BILATERAL Exam Date: [...] Signed by: DORA Thank You for choosing [facility] Imaging Page 1 of 1 us Patient Reported IMG MAMMOGRAPHY ORDERABLES Miri l Result * ThinPrep Pap and HPV (mRNA E6/E7){HPV-REFLEX} ([facility]) (03/04/2017 3:13 PM [employer]) Clinical History None given [facility] LMP SEE COMMENT [facility] Comment:OVER 8YRS AGO Last Pap Diagnosis 120,817 Q [facility] Prev Bx Dx NONE GIVEN [facility] Source Cervix [facility] Statement of Adequacy SEE COMMENT [facility] Comment: Satisfactory for evaluation. Endocervical/transformation zone component present. Descriptive Diagnosis SEE COMMENT [facility] Comment:Negative for intraep ithelial lesion or malignancy. Target Trimmer: SEE COMMENT [facility] Comment: ERP, CT(ASCP) CT Screening location: [facility] [address] [place], [place] ??[address] Cervical swab (specimen) 03/04/2017 3:13 PM [facility] 03/05/2017 2:58 AM [employer] [facility] Narrative Resulting Agency Comment Performing Organization Information: ? [place] ? [facility] ? [address] [place] [address] ? Lars Calderon M.D. us Alek Jones MD LAB - NON-BEAKER NON- BLOOD Final Result Performing Organization Address [facility] Co de Phone Number [facility] [address] [place] [address] * Hepatits C antibody ([facility]) (04/07/2016 3:32 PM [employer] [facility]) HCV Antibody NON-REACTI VE NON-REACTI VE [facility] SIGNAL TO CUT OFF - [facility] 0.03 <1.00 [facility] Blood specimen (specimen) 04/07/2016 3:32 PM [employer] [facility] 04/08/2016 3:37 AM [employer] [facility] Narrative Resulting Agency Comment Performing Organization Information: ? CB ? [facility] ? [address] [place] [address] ? Lars Calderon M.D. us Alek Jones MD LAB - BLOOD ORDERABLE S Final Result Performing Organization Address [facility]/ZIP Co de Phone Number [facility] [address] [place] [address] * (ABNORMAL) Drug abuse screen 8 urine (UR) (01/26/2006 2:35 PM FISH AND GAME WARDEN) Amphetamine Qual Urine Negative NEG MISYS Ethanol Qual Urine Negative NEG MISYS Opiates Qualitative Urine Positive(A) NEG MISYS PCP Qual Urine Negative NEG MISYS Benzodiazepine Qual Urine Negative NEG MISYS Barbiturates Qual Urine Negative NEG MISYS Cocaine Qual Urine Negative NEG MISYS Cannabinoids Qual Urine Negative NEG MISYS 01/26/2006 2:35 PM FISH AND GAME WARDEN 01/26/2006 2:25 PM FISH AND GAME WARDEN us Russell Trinidad MD LAB - URINE ORDERABL ES Final Result MISYS from Last 3 Months or Most Recently Relevant to Health Maintenance 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 Insurance [place] Advance Directives For more information, please contact: [phone] * Full Code (Latest Code Status on [...] 5:45 PM 01/17/2014 4:33 PM Care Teams Air Cargo Ground Crew Supervisor Relationship Specialty Start Date End Date Davonte Juan APRN SOLID CENTER WINDER [facility] [place] [address] PCP - General Family Medicine 11/15/23 Brayden Du MD [address] [place] [address] [address] Neurology 05/06/22 Maya Alfaro MD [address] [place] [address] Internal Medicine 11/15/23 Kelsy Matthews [address] [place] [address] Geriatric Services Bagging Machine Operator 11/15/23 (Fgs), [facility] Senior [facility]pts [facility] Living [address] [place] [address] 11/15/23 Davonte Juan APRN SOLID CENTER WINDER [address] [place] [address] Assigned PCP 11/18/23
--- OUTSIDE RECORDS SUMMARY | 2024-02-03 03:17 | XMS_ITS | Encounter Summary ---
Author Organization [facility] Address [address] [place] [address] Care Team Providers Care Family Intervention Specialist Name Role Phone Brayden Du MD Unavailable Davonte Juan APRN OFFSET ASSISTANT PRESS OPERATOR Primary Care Pr ovider + Maya Alfaro MD Unavailable [phone] Kelsy Matthews Unavailable + (Fgs), [facility] shanta Apts Asst Living Unavailable Davonte Juan APRN, CNP Unavailable Reason for Referral * Mental Health Outpatient (Routine: Next available opening) - Pending Review Specialty Diagnoses / Procedures Referred By Ela galeana Referred To Contact Diagnoses Major depressive disorder, recurrent episode, moderate (H) Davonte Juan APRN OFFSET ASSISTANT PRESS OPERATOR [address] [place] [address] Phone: tel: fax: Referral ID Status Reason Start Date Expiration Date V isits Requested Visits Authorized [id number] Pending Review 12/23/2023 12/22/2024 1 1 Question Answer Services: Psychotherapy/Counseling (non-medication) Reason for Referral: Individual Psychotherapy/Counseling Scheduling Instructions: [facility] will call you to coordinate your care as prescribed by your provider. If you don't hear from a distribution sales representative within 2 business days, please call [...] plan with any benefit or coverage questions. [facility] will call you to coordinate your care as prescribed by your provider. If you don't hear from a distribution sales representative within 2 business days, please call . Reason for Visit * Reason Comments Altered Mental Status Encounter Details Date Type Department Care Team (Late st Contact Info) Description 12/23/2023 7:00 AM CDT Assisted Living Visit [facility] [address] [place] [phone] Davonte Juan APRN OFFSET ASSISTANT PRESS OPERATOR [address] [place] [address] Decreased responsiveness (Primary Dx); Major depressive disorder, [...] Sex Assigned at Female 02/28/2021 1:24 PM PR INTERN Legal Sex Female 3:43 AM PR INTERN Gender Identity Female 02/28/2021 1:23 PM PR INTERN Sexual Orientation Straight 02/28/2021 1: 20 PM PR INTERN Occupation Industry Job Start Date Job End [...] encounter Progress Notes * Davonte Juan, LONG OFFSET ASSISTANT PRESS OPERATOR - 12/23/2023 7:00 AM CDT Images from the original note were not included. [facility] encounter took [facility]: [facility] [[id number]] Chief Complaint Patient presents with Altered Mental Status HPI: Sultana Mueller is a 68 year old (1955), who is being seen today for an episodic care visit. HPI information obtained from: facility chart records, facility staff, patient report, and [facility] chart review. Today's concern is: Decreased [...] Labs Lab Test 11/16/23 0618 07/25/23 0647 06/11/232052 WBC 7.1 7.9 7.2 HGB 9.6* 10.0* [...] reports ongoing s/s. Plan: Adult Mental Health High Speed Operator Referral 1. Cont. Celexa, remeron 2. [...] on Sultana Mueller: Gender: female : 1955 [id number] [facility] [address] (home) Medical Record: [id number] Social Security Number: [id number] Primary Care Provider: Davonte Juan Insurance: Payor: BS / Plan: BS MEDICARE ADVANTAGE / Product Type: Medicare / HPI: Sultana Mueller is a 68 year old (1955), who is being seen today for a face to face provider visit at [facility]; medical necessity statement for DME included. [...] Lymphedema Orders: 1. Facility staff/TC to contact DME company to get their order form for provider to fill out ELECTRONICALLY SIGNED BY ED CERTIFIED PROVIDER: Davonte Juan APRN CNP [facility] [address] [place] [address] documented in this encounter Plan of Treatment Scheduled Referrals Name Type Priority Associated Diagnoses Orde r Schedule Adult Mental Health High Speed Operator Referral Referral Routine: Next available opening [...] Total Score: 9 02/18/20 21 7:30 AM PR INTERN documented as of this encounter Care Teams Family Intervention Specialist Relationship Specialty Start Date End Date Davonte Juan APRN CNP [address] [place] [address] PCP - General Family Medicine 11/15/23 Brayden Du MD [address] [place] [address] [id number] [place] [address] Neurology 05/06/22 [place] [address] [place] [address] Internal Medicine 11/15/23 Kelsy Matthews [address] [place] [address] Geriatric Services Ore Crusher 11/15/23 (Fgs), [facility] Senior [facility]pts [facility] Living [address] [place] [address] 11/15/23 Davonte Juan APRN OFFSET ASSISTANT PRESS OPERATOR [address] [place] [address] Assigned PCP 11/18/23 documented as of this encounter
--- OUTSIDE RECORDS SUMMARY | 2024-02-03 03:17 | XMS_ITS | Encounter Summary ---
Author Organization [facility] Address [address] [place] [address]. [place] [address] Care Team Providers Care Spinning Bath Patroller Name Role Phone Brayden Du MD Unavailable Davonte Juan APRN NEWS CLERK Primary Care Pr ovider Maya Alfaro MD Unavailable [phone] Kelsy Matthews Unavailable + (Fgs), [facility] shanta Apts Asst Living Unavailable Davonte Juan APRN NEWS CLERK Unavailable Encounter Details Date Type Department Care Team (Latest Contact Info) Description 01/18/2024 Travel Social History Tobacco Use Types Packs/Day [...] Sex Assigned at Female 02/28/2021 1:24 PM PRACTICE REPRESENTATIVE Legal Sex Female 3:43 AM PRACTICE REPRESENTATIVE Gender Identity Female 02/28/2021 1:23 PM PRACTICE REPRESENTATIVE Sexual Orientation Straight 02/28/2021 1: 20 PM PRACTICE REPRESENTATIVE Occupation Industry Job Start Date Job [...] Total Score: 9 02/18/20 21 7:30 AM PRACTICE REPRESENTATIVE documented as of this encounter Care Teams Spinning Bath Patroller Relationship Specialty Start Date End Date Davonte Juan APRN NEWS CLERK [address] [place] [address] PCP - General Family Medicine 11/15/23 Brayden Du MD [address] [place] [address] [address] Neurology 05/06/22 Maya Alfaro MD [address] [place] [address] Internal Medicine 11/15/23 Kelsy Matthews [address] [place] [address] Geriatric Services Cat Sitter 11/15/23 (Fgs), [facility] Senior [facility]pts [facility] Living [address] [place] [phone] 11/15/23 Davonte Juan APRN NEWS CLERK [address] [place] [address] Assigned PCP 11/18/23 documented as of this encounter
--- OUTSIDE RECORDS SUMMARY | 2024-02-03 03:18 | XMS_ITS | Encounter Summary ---
Author Organization [facility] Address [address] [place] [address]. [place] [address] Care Team Providers Care Ems Director Name Role Phone Jeramie [facility] MD Primary Care Provider Elodia Rose Oliveira CASSANDRA ARCHITECT Unavailable [phone] Estela Dacosta PA-C Primary Care Pro vider Kelley Love MD Primary Care Provider [phone] Alek Jones MD Primary Care Provide r Alek Jones MD Unavailable [phone] Alek Jones MD Unavailable [phone] Alexa Simon PA-C Unavailable + [phone] Alexa Simon PA-C Unavailable + [phone] Alek Jones MD Unavailable [phone] [place]([facility] Unavailable Alexa Simon PA-C Unavailable + [phone] Alek Jones MD Unavailable [phone] Neelima Shukla DO Primary Care Provider [phone] Brayden Du MD Unavailable Alexa Simon PA-C Unavailable + [phone] Davonte Juan APRN [facility] Primary Care Pr ovider Maya Alfaro MD Unavailable Kelsy Matthews Unavailable (Fgs), [facility] Unavailable Davonte Juan APRN ESTHETICIAN/OWNER Unavailable Reason for Visit * Reason Onset Date Comments MH/CD Inpatient 07/30/2014 Other Encounter Details Date Type Department Care Team (Late st Contact Info) Description 07/30/2014 Telephone [facility] Behavioral Health Intake [address] [place] [address] Generic, Behavioral Intake, MH/CD Inpatient; Social History Tobacco Use Types Packs/Day Years Used Date Smoking Tobacco: Former Smokeless Tobacco: Never Alcohol Use Standard Drinks/Week Comments No 0 (1 standard drink = 0.6 oz pur e alcohol) Comments No Sex and Gender Information Value Date Recorded Sex Assigned at Female 02/28/2021 1:24 PM FOOD HANDLER Legal Sex Female 3:43 AM FOOD HANDLER Gender Identity Female 02/28/2021 1:23 PM FOOD HANDLER Sexual Orientation Straight 02/28/2021 1: 20 PM FOOD HANDLER Occupation Industry Job Start Date Job End Date Not on file Not on file Not on file Not on file documented as of this encounter Miscellaneous Notes * Telephone Encounter - Nino Flores, RN - 07/30/2014 3:09 PM CDT S: Patient presents to [facility] brought in by friends with a [...] and voluntary. R: Admit to station 3a, kenneth COY, Heide accepts. 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 documented as of this encounter Care Teams Ems Director Relationship Specialty Start Date End Date Jeramie [facility] MD PCP - General Family Practice 07/24/14 11/09/15 Estela Dacosta PA-C PCP - General Family Practice 11/10/15 12/17/15 Kelley Love MD [address] [place] [address] PCP - General Family Practice 12/18/15 03/17/16 Alek Jones MD [address] [address] PCP - General Family Practice 03/18/16 01/11/22 [place] [address] [place] [address] PCP - General Family Medicine 01/12/22 11/14/23 Davonte Juan APRN CNP [address] [place] [address] PCP - General Family Medicine 11/15/23 Rose Pelletier, CAR Flexible Shaft Winder 09/19/14 07/10/20 Alek Jones MD [address], [address] [address] Assigned PCP 04/08/19 05/24/20 Alek Jones MD [address], [address] [place] [address] Assigned PCP 12/25/17 03/31/19 Alexa Simon PA-C [address], [facility] [address] [place] [address] Assigned PCP 04/01/19 04/07/19 Alexa Simon PA-C [address], [address] [address] Assigned PCP 05/25/20 06/07/20 Alek Jones MD [address], [address] [address] Assigned PCP 06/08/20 02/14/21 [place](Fgs), [address] [address] [facility] 10/27/20 11/14/20 Alexa Simon PA-C [address], [address] [address] Assigned PCP 02/15/21 02/28/21 Alek Jones MD [address], [address] [address] Assigned PCP 03/01/21 07/18/23 Brayden Du MD [address] [facility] [id number] [place] [address] Neurology 05/06/22 Alexa Simon PA-C [address] , [address] [place] [address] Assigned PCP 07/19/23 11/17/23 Maya Alfaro MD [address] [place] [address] Internal Medicine 11/15/23 Kelsy Matthews [address] [place] [address] Geriatric Services Trombone Slide Assembler 11/15/23 (Fgs), [facility] Senior Apts Asst Living [address] [place] [phone] 11/15/23 Davonte Juan APRN ESTHETICIAN/OWNER [address] [place] [address] Assigned PCP 11/18/23 documented as of this encounter
--- OUTSIDE RECORDS SUMMARY | 2024-02-03 03:18 | XMS_ITS | Clinical Summary ---
Author Organization [facility] Number Address [address] [place] [address] Care Team Providers Care Joggle Press Operator Name Role Phone Alek Jones MD Primary Care Provider [phone] Source Comments You are receiving this document as you are listed as the primary care provider,follow-up provider, or the patient has been referred to you for consultation.This is in compliance with the Medicare andDunlap Memorial Hospitalcaid EHR Incentive Program,which states Providers who transition their patient to another setting of careor provider of care or refers their patient to another provider of care shouldprovide summary care record for each transition of care or referral. 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 (11/17/2016): LW Modifier: Resected 10/2000 LW Onset: 15Atp51 ; Arteriovenous Malformation Depression, major, in remission [...] 72.1 kg (159 lb) 03/31/2020 2:15 PM MANAGER GROUP HOME Height 160 cm (5' 3) 03/31/2020 2:15 PM MANAGER GROUP HOME Body Mass Index 28.17 03/31/2020 2:15 PM MANAGER GROUP HOME Plan of Treatment Health Maintenance Due Date [...] BILAT W CAD Routine 06/01/2011 12:35 PM MANAGER GROUP HOME Routine gynecological examination LIPID PANEL & DIRECT LDL (IF NEEDED) Routine 04/15/2010 1:56 PM MANAGER GROUP HOME from Last 3 Months or Most Recently Relevant to Health Maintenance Results * (ABNORMAL) MM Mammogram Screening Bilat W CAD (06/01/2011 12:35 PM MANAGER GROUP HOME) Anatomical Region Laterality Modality Breast Bilateral Mammography Impressions 06/01/2011 2:31 PM MANAGER GROUP HOME IMPRESSION: RIGHT BREAST: Architectural distortion posteriorly. Spot compression and ultrasound are recommended at this time. LEFT BREAST: Negative, no evidence of malignancy. Normal interval follow-up is recommended in 12 months. OVERALL ASSESSMENT - CATEGORY 0 - INCOMPLETE: NEED ADDITIONAL IMAGING EVALUATION END OF IMPRESSION SJW Narrative 06/01/2011 2:31 PM MANAGER GROUP HOME Comparison is made to films from 11/27/2009 [...] and Direct LDL(If Needed) (04/15/2010 1:56 PM MANAGER GROUP HOME) Cholesterol 264(H) 0 - 200 mg/dL HP CONVERSION Triglycerides 87 0 - 149 mg/dL HP CONVERSION HDL Cholesterol 83 >39 mg/dL HP CONVERSION Cholesterol/HDL Ratio Screen 3.2 No normal range HP CONVERSION LDL Calculated 164(H) 19 - 130 mg/dL HP CONVERSION Hours Fasting 12 No normal range HP CONVERSION 04/15/2010 1:56 PM MANAGER GROUP HOME Deandra Webb MD LAB_1 HP CONVERSION from Last 3 Months or Most Recently Relevant to Health Maintenance Care Teams Joggle Press Operator Relationship Specialty Start Date End Date Alek Jones MD [address], [id number] [place] [address] PCP - General Family Practice 03/17/20
--- OUTSIDE RECORDS SUMMARY | 2024-02-03 03:18 | XMS_ITS | Encounter Summary ---
Author Organization [facility] Address [address] [place] [address]. [place] [address] Care Team Providers Care Cattle Trader Name Role Phone Rose Pelletier WOOL MERCHANT Unavailable [phone] Alek Jones MD Primary Care Provide r Alek Jones MD Unavailable [phone] Center(Fgs), [facility] Unavailable Alexa Simon PA-C Unavailable + [phone] Alek Jones MD Unavailable [phone] Neelima Shukla DO Primary Care Provider [phone] Brayden Du MD Unavailable Alexa Simon PA-C Unavailable + [phone] Davonte Juan APRN MODEL AND DYE PERSON Primary Care Pr ovider Maya Alfaro MD Unavailable [phone] Kelsy Matthews Unavailable + (Fgs), [facility] Un[facility] Davonte Juan APRN MODEL AND DYE PERSON Unavailable Encounter Details Date Type Department Care [...] Answer Date Recorded PHQ-2 Score 2 06/02/2020 Comments No Sex and Gender Information Value Date Recorded Sex Assigned at Female 02/28/2021 1:24 PM MACHINE MILKER Legal Sex Female 3:43 AM MACHINE MILKER Gender Identity Female 02/28/2021 1:23 PM MACHINE MILKER Sexual Orientation Straight 02/28/2021 1: 20 PM MACHINE MILKER Occupation Industry Job Start Date Job End [...] Depression Total Score: 11 021 3:32 PM MACHINE MILKER documented as of this encounter Care Teams Cattle Trader Relationship Specialty Start Date End Date Alek Jones MD [address], [address] [place] [address] PCP - General Family Practice 03/18/16 01/11/22 [place] [address] [place] [address] PCP - General Family Medicine 01/12/22 11/14/23 Davonte Juan APRN MODEL AND DYE PERSON [address] [place] [address] PCP - General Family Medicine 11/15/23 Rose Pelletier, [facility] Manager Housekeeping 09/19/14 07/10/20 Alek Jones MD [address] , [address] [address] Assigned PCP 06/08/20 02/14/21 [place] [address] [facility] Facility 10/27/20 11/14/20 [facility] PA-C [address], [address] [address] Assigned PCP 02/15/21 02/28/21 Alek Jones MD [address] , [address] [address] Assigned PCP 03/01/21 07/18/23 Brayden Du MD [address] [place] [address] [id number] [place] [address] Neurology 05/06/22 Alexa [facility] PA-C [address] , [address] [place] [address] Assigned PCP 07/19/23 11/17/23 Maya Alfaro MD [address] [place] [address] Internal Medicine 11/15/23 Kelsy Matthews [address] [place] [address] Geriatric Services Assistant Chief Engineer 11/15/23 (Fgs), [facility] Senior Apts Asst Living [address] [place] [address] 11/15/23 Davonte Juan APRN MODEL AND DYE PERSON [address] [place] [address] Assigned PCP 11/18/23 documented as of this encounter
--- OUTSIDE RECORDS SUMMARY | 2024-02-03 03:18 | XMS_ITS | Encounter Summary ---
Author Organization [facility] Address [address] [place] [address]. [place] [address] Care Team Providers Care Dock Hand Name Role Phone Jeramie [facility] MD Primary Care Provider Elodia Rose Oliveira PHYSICIST ASTROPHYSICS Unavailable [phone] Estela Dacosta PA-C Primary Care Pro vider Kelley Love MD Primary Care Provider [phone] Alek Jones MD Primary Care Provide r Alek Jones MD Unavailable [phone] Alek Jones MD Unavailable [phone] Alexa Simon PA-C Unavailable + [phone] Alexa Simon PA-C Unavailable + [phone] Alek Jones MD Unavailable [phone] [place]([facility] Unavailable Alexa Simon PA-C Unavailable + [phone] Alek Jones MD Unavailable [phone] Neelima Shukla DO Primary Care Provider [phone] Brayden Du MD Unavailable Alexa Simon PA-C Unavailable + [phone] Davonte Juan APRN [facility] Primary Care Pr ovider Maya Alfaro MD Unavailable [phone] MatthewsKelsy valentin Unavailable (Fgs), [facility] Unavailable Davonte Juan APRN TOOL MAKER Unavailable Reason for Visit * Reason Comments Medication Refill Encounter Details Date Type Department Care Team (Late st Contact Info) Description 09/13/2014 Refill [facility] [address] [place] [address] [place] [phone] Jeramie [facility] MD XXXX RESIGNED/INACTIVE XXXX Medication Refill Social History Tobacco Use Types Packs/Day Years Used Date Smoking Tobacco: Former Smokeless Tobacco: Never Alcohol Use Standard Drinks/Week Comments No 0 (1 standard drink = 0.6 oz pur e alcohol) Comments No Sex and Gender Information Value Date Recorded Sex Assigned at Female 02/28/2021 1:24 PM REMOTE ADVISOR Legal Sex Female 3:43 AM REMOTE ADVISOR Gender Identity Female 02/28/2021 1:23 PM REMOTE ADVISOR Sexual Orientation Straight 02/28/2021 1: 20 PM REMOTE ADVISOR Occupation Industry Job Start Date Job End [...] Indicated Resolved Time 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/07/2020 11/07/202011/09/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 documented as of this encounter Care Teams Dock Hand Relationship Specialty Start Date End Date Jeramie [facility] MD PCP - General Family Practice 07/24/14 11/09/15 Estela Dacosta PA-C PCP - General Family Practice 11/10/15 12/17/15 Kelley Love MD [address] , [address] [address] PCP - General Family Practice 12/18/15 03/17/16 Alek Jones MD [address] [address] [address] PCP - General Family Practice 03/18/16 01/11/22 [place] [address] [place] [address] PCP - General Family Medicine 01/12/22 11/14/23 Davonte Juan APRN TOOL MAKER [address] [place] [address] PCP - General Family Medicine 11/15/23 Rose Pelletier, CAR Building Construction Estimator 09/19/14 07/10/20 Alek Jones MD [address] [address] [address] Assigned PCP 04/08/19 05/24/20 Alek Jones MD [address], [address] [address] Assigned PCP 12/25/17 03/31/19 Alexa Simon PA-C [address], [address] [address] Assigned PCP 04/01/19 04/07/19 Alexa Simon PA-C [address], [address] [address] Assigned PCP 05/25/20 06/07/20 Alek Jones MD [address], [address] [address] Assigned PCP 06/08/20 02/14/21 [place]), [address] [phone] Long Term Facility 10/27/20 11/14/20 [facility] PA-C [address], [address] [address] Assigned PCP 02/15/21 02/28/21 Alek Jones MD [address], [address] [address] Assigned PCP 03/01/21 07/18/23 Brayden Du MD [address] [place] [address] [address] Neurology 05/06/22 [facility] PA-C [address], [address] [place] [address] Assigned PCP 07/19/23 11/17/23 Maya Alfaro MD [address] [place] [address] Internal Medicine 11/15/23 Kelsy Matthews [address] [place] [address] Geriatric Services Kick Boxer 11/15/23 (Fgs), [facility] Senior Apts Asst Living [address] [place] [phone] 11/15/23 Davonte Juan APRN TOOL MAKER [address] [place] [address] Assigned PCP 11/18/23 documented as of this encounter
--- OUTSIDE RECORDS SUMMARY | 2024-02-03 03:18 | XMS_ITS | Encounter Summary ---
Author Organization [place] Address [address] [place] [address]. [place] [address] Care Team Providers Care Sawmill Production Worker Name Role Phone Jeramie Sterling MD Primary Care Provider Elodia Rose Oliveira DEAN OF STUDENT SERVICES Unavailable [phone] Estela Dacosta PA-C Primary Care Pro vider Kelley Love MD Primary Care Provider [phone] Alek Jones MD Primary Care Provide r Alek Jones MD Unavailable [phone] Alek Jones MD Unavailable +[phone] Alexa Simon PA-C Unavailable + [phone] Alexa Simon PA-C Unavailable + [phone] Alek Jones MD Unavailable +[phone] [place](Fgs)[facility] Unavailable Alexa Simon PA-C Unavailable + [phone] Alek Jones MD Unavailable +[phone] Neelima Shukla DO Primary Care Provider [phone] Brayden Du MD Unavailable Alexa Simon PA-C Unavailable + [phone] Davonte Juan APRN [facility] Primary Care Pr ovider Maya Alfaro MD Unavailable [phone] Kelsy Matthews Unavailable (Fgs), [facility] Vel[facility] Living Unavailable Drake Davonte Jun ALVES CONSTRUCTION TECHNICIAN Unavailable Reason for Visit * Reason Comments Other Encounter Details Date Type Department Care Team ([facility] Contact Info) Description 08/02/2014 Telephone [facility] Health Intake [address] [place] [phone] Generic, Behavioral Intake, Social History Tobacco Use Types Packs/Day Years Used Date Smoking Tobacco: Former Smokeless Tobacco: Never Alcohol Use Standard Drinks/Week Comments No 0 (1 standard drink = 0.6 oz pur e alcohol) Comments No Sex and Gender Information Value Date Recorded Sex Assigned at Female 02/28/2021 1:24 PM SUSTAINABLE DEVELOPMENT POLICY ANALYST Legal Sex Female 3:43 AM SUSTAINABLE DEVELOPMENT POLICY ANALYST Gender Identity Female 02/28/2021 1:23 PM SUSTAINABLE DEVELOPMENT POLICY ANALYST Sexual Orientation Straight 02/28/2021 1: 20 PM SUSTAINABLE DEVELOPMENT POLICY ANALYST Occupation Industry Job Start Date Job End Date Not on file Not on file Not on file Not on file documented as of this encounter Miscellaneous Notes * Telephone Encounter - Chayo Fraire - 08/02/2014 1:57 PM CDT ----- Message from Mihaela Gillette sent at 08/02/2014 12:47 PM CDT ----- Regarding: Seniors DOP referral I will fax [facility] Courtesy Rule 25 and ask for them to contact [facility] with authorization. * Telephone Encounter - Chayo Fraire - 08/02/2014 11:19 AM CDT 08-02-14 sent note back encouraging program to read Katia note re: funding. Scheduled orientation. fb * Telephone Encounter - Chayo Fraire - 08/02/2014 11:10 AM CDT ----- Message from Mihaela Delicia Gillette sent at 08/02/2014 10:59 AM CDT [...] documented as of this encounter Care Teams Sawmill Production Worker Relationship Specialty Start Date End Date Jeramie Sterling MD PCP - General Family Practice 07/24/14 11/09/15 Estela Dacosta PA-C PCP - General Family Practice 11/10/15 12/17/15 Kelley Love MD [address] [address] PCP - General Family Practice 12/18/15 03/17/16 Alek Jones MD [address] [place] [address] PCP - General Family Practice 03/18/16 01/11/22 [place] [address] [place] [address] PCP - General Family Medicine 01/12/22 11/14/23 Davonte Juan APRN CONSTRUCTION TECHNICIAN [address] [place] [address] PCP - General Family Medicine 11/15/23 [place] Marcie, [facility] [address] Parts Person 09/19/14 07/10/20 Alek Jones MD [address] , [address] [address] Assigned PCP 04/08/19 05/24/20 Alek Jones MD [address] , [address] [address] Assigned PCP 12/25/17 03/31/19 Alexa Simon PA-C [address] , [address] [address] Assigned PCP 04/01/19 04/07/19 Alexa Simon PA-C [address] , [address] [address] Assigned PCP 05/25/20 06/07/20 Alek Jones MD [address] , [address] [address] Assigned PCP 06/08/20 02/14/21 [place](Fgs), [address] [phone] [facility] 10/27/20 11/14/20 Alexa Simon PA-C [address] , [address] [address] Assigned PCP 02/15/21 02/28/21 Alek Jones MD [address] [place] [address] Assigned PCP 03/01/21 07/18/23 Brayden Du MD [address]09 [facility] [id number] [place] [address] Neurology 05/06/22 Alexa Simon PA-C [address] [place] [address] 100 [place] [address] Assigned PCP 07/19/23 11/17/23 [place] [address] [place] [address] Internal Medicine 11/15/23 Kelsy Matthews [address] [place] [address] Geriatric Services Travel Specialist 11/15/23 (Fgs), [facility] Senior Apts Asst Living [address] [place] [phone] 11/15/23 Davonte Juan APRN CONSTRUCTION TECHNICIAN [address] [place] [address] Assigned PCP 11/18/23 documented as of this encounter
--- OUTSIDE RECORDS SUMMARY | 2024-02-03 03:18 | XMS_ITS | Encounter Summary ---
Author Organization [place] Address [address] [place] [address]. [place] [address] Care Team Providers Care Coil Finisher Name Role Phone Brayden Du MD Unavailable Davonte Juan APRN HEAD OF BIOLOGY Primary Care Pr ovider Maya Alfaro MD Unavailable [phone] Kelsy Matthews Unavailable + (Fgs), [facility] shanta Apts Asst Living Unavailable Davonte Juan APRN HEAD OF BIOLOGY Unavailable Encounter Details Date Type Department Care [...] Sex Assigned at Female 02/28/2021 1:24 PM DRY CHARGE PROCESS ATTENDANT Legal Sex Female 3:43 AM DRY CHARGE PROCESS ATTENDANT Gender Identity Female 02/28/2021 1:23 PM DRY CHARGE PROCESS ATTENDANT Sexual Orientation Straight 02/28/2021 1: 20 PM DRY CHARGE PROCESS ATTENDANT Occupation Industry Job Start Date Job End [...] Total Score: 9 02/18/20 21 7:30 AM DRY CHARGE PROCESS ATTENDANT documented as of this encounter Care Teams Coil Finisher Relationship Specialty Start Date End Date Davonte Juan APRN HEAD OF BIOLOGY [address] [place] [address] PCP - General Family Medicine 11/15/23 Brayden Du MD [address] [place] [address] [address] Neurology 05/06/22 Maya Alfaro MD [address] [place] [address] Internal Medicine 11/15/23 Kelsy Matthews [address] [place] [address] Geriatric Services Insurance Follow Up Specialist 11/15/23 (Fgs), [facility] Senior Apts Asst Living [address] [place] [phone] 11/15/23 Davonte Juan APRN HEAD OF BIOLOGY [address] [place] [address] Assigned PCP 11/18/23 documented as of this encounter
--- OUTSIDE RECORDS SUMMARY | 2024-02-03 03:18 | XMS_ITS | Encounter Summary ---
Author Organization [place] Address [address] [place] [address]. [place] [address] Care Team Providers Care Redipper Name Role Phone Jeramie Sterling MD Primary Care Provider Elodia Rose Oliveira DIRECTOR CHANNEL Unavailable [phone] Estela Dacosta PA-C Primary Care Pro vider Kelley Love MD Primary Care Provider [phone] lAek Jones MD Primary Care Provide r Alek Jones MD Unavailable [phone] Alek Jones MD Unavailable [phone] Alexa Simon PA-C Unavailable + [phone] Alexa Simon PA-C Unavailable + [phone] Alek Jones MD Unavailable [phone] [place](Fgs)[facility] Unavailable Alexa Simon PA-C Unavailable + [phone] Alek Jones MD Unavailable [phone] Neelima Shukla DO Primary Care Provider [phone] Brayden Du MD Unavailable Alexa Simon PA-C Unavailable + [phone] Davonte Juan APRN [facility] Primary Care Pr ovider Maya Alfaro MD Unavailable [phone] MatthewsKelsy valentin Unavailable (Fgs), [facility]a Vle[facility] Living Unavailable Davonte Juan APRN VISUALLY IMPAIRED TEACHER Unavailable Reason for Visit * Reason Comments Medication Refill Encounter Details Date Type Department Care Team (Late Contact Info) Description 10/14/2014 Refill [facility] [address] [phone] Jeramie Sterling MD XXXX RESIGNED/INACTIVE XXXX Medication Refill Social History Tobacco Use Types Packs/Day Years Used Date Smoking Tobacco: Former Smokeless Tobacco: Never Alcohol Use Standard Drinks/Week Comments No 0 (1 standard drink = 0.6 oz pur e alcohol) Comments No Sex and Gender Information Value Date Recorded Sex Assigned at Female 02/28/2021 1:24 PM PERFORMANCE SOLUTIONS SPECIALIST Legal Sex Female 3:43 AM PERFORMANCE SOLUTIONS SPECIALIST Gender Identity Female 02/28/2021 1:23 PM PERFORMANCE SOLUTIONS SPECIALIST Sexual Orientation Straight 02/28/2021 1: 20 PM PERFORMANCE SOLUTIONS SPECIALIST Occupation Industry Job Start Date Job [...] documented as of this encounter Care Teams Redipper Relationship Specialty Start Date End Date Jeramie Sterling MD PCP - General Family Practice 07/24/14 11/09/15 Estela Dacosta PA-C PCP - General Family Practice 11/10/15 12/17/15 Kelley Love MD [address] 100 [place] [address] PCP - General Family Practice 12/18/15 03/17/16 Alek Jones MD [address], [address] [address] PCP - General Family Practice 03/18/16 01/11/22 [place] [address] [place] [address] PCP - General Family Medicine 01/12/22 11/14/23 Davonte Juan APRN CNP [address] [place] [address] PCP - General Family Medicine 11/15/23 Rose Pelletier, [facility] Paper Cup Machine Operator 09/19/14 07/10/20 Alek Jones MD [address] [place] [address], [address] [address] Assigned PCP 04/08/19 05/24/20 Alek Jones MD [address], [address] [address] Assigned PCP 12/25/17 03/31/19 Alexa Simon PA-C [address], [address] [address] Assigned PCP 04/01/19 04/07/19 Alexa Simon PA-C [address] [place] [address] Assigned PCP 05/25/20 06/07/20 Alek Jones MD [address] [address] Assigned PCP 06/08/20 02/14/21 [place]), [address] [address] Intermediate Facility 10/27/20 11/14/20 Alexa Simon PA-C [address], [address] [address] Assigned PCP 02/15/21 02/28/21 Alek Jones MD [address], [address] [address] Assigned PCP 03/01/21 07/18/23 Brayden Du MD [address] [place] [address] [id number] [place] [address] Neurology 05/06/22 Alexa Simon PA-C [address], [address] [address] Assigned PCP 07/19/23 11/17/23 Maya Alfaro MD [address] [place] [address] Internal Medicine 11/15/23 Kelsy [place]s [address] [place] [address] Geriatric Services Refrigeration Brazer/Solderer 11/15/23 (Fgs), [facility] Senior Apts Asst Living [address] [place] [address] 11/15/23 Davonte Juan APRN VISUALLY IMPAIRED TEACHER [address] [place] [address] Assigned PCP 11/18/23 documented as of this encounter
--- OUTSIDE RECORDS SUMMARY | 2024-02-03 03:18 | XMS_ITS | Encounter Summary ---
Author Organization [place] Address [address] [place] [address]. [place] [address] Care Team Providers Care Legal Aid Name Role Phone Jeramie Sterling MD Primary Care Provider Elodia Rose Oliveira INTERNIST MEDICAL DOCTOR MD Unavailable [phone] Estela Dacosta PA-C Primary Care Pro vider Kelley Love MD Primary Care Provider [phone] Alek Jones MD Primary Care Provide r Alek Jones MD Unavailable [phone] Alek Jones MD Unavailable [phone] Alexa Simon PA-C Unavailable + [phone] Alexa Simon PA-C Unavailable + [phone] Alek Jones MD Unavailable [phone] [place](Fgs)[facility] Unavailable Alexa Simon PA-C Unavailable + [phone] Alek Jones MD Unavailable +[phone] Neelima Shukla DO Primary Care Provider [phone] Brayden Du MD Unavailable Alexa Simon PA-C Unavailable + [phone] Davonte Juan APRN [facility] Primary Care Pr ovider Maya Alfaro MD Unavailable [phone] MatthewsKelsy huerta Unavailable (Fgs), [facility] Vel[facility] Living Unavailable Davonte Juan APRN ENVIRONMENTAL DIRECTOR Unavailable Reason for Visit * Reason Comments Medication Refill Encounter Details Date Type Department Care Team (Late st Contact Info) Description 02/18/2015 Refill [facility] [address] [place] [phone] Jeramie Sterling MD XXXX RESIGNED/INACTIVE XXXX Medication Refill Social History Tobacco Use Types Packs/Day Years Used Date Smoking Tobacco: Former Smokeless Tobacco: Never Alcohol Use Standard Drinks/Week Comments No 0 (1 standard drink = 0.6 oz pur e alcohol) Comments No Sex and Gender Information Value Date Recorded Sex Assigned at Female 02/28/2021 1:24 PM CARE PARTNER Legal Sex Female 3:43 AM CARE PARTNER Gender Identity Female 02/28/2021 1:23 PM CARE PARTNER Sexual Orientation Straight 02/28/2021 1: 20 PM CARE PARTNER Occupation Industry Job Start Date Job End Date Not on file Not on file Not on file Not on file documented as of this encounter Miscellaneous Notes * Telephone Encounter - Jeramie Sterling MD - 02/18/2015 11:54 AM CARE PARTNER IS THIS A NEW MED, NO DX, HAVE WE RX IN PAST, ?? PARTNER * Telephone Encounter - Deloris Eddy CMA - 02/18/2015 8:00 AM CST Pending Prescriptions: Disp Refills PROCTOZONE-HC 2.5 % rectal cream [Pharmac*30 g 0 Sig: INSERT 1 APPLICATION RECTALLY THREE TIMES DAILY FOR 10 DAYS You never prescribed this, are you willing to fill? 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 documented as of this encounter Care Teams Legal Aid Relationship Specialty Start Date End Date Jeramie Sterling MD PCP - General Family Practice 07/24/14 11/09/15 Estela Dacosta PA-C PCP - General Family Practice 11/10/15 12/17/15 Kelley Love MD [address], [address] [address] PCP - General Family Practice 12/18/15 03/17/16 Alek Jones MD [address], [address] [address] PCP - General Family Practice 03/18/16 01/11/22 [place] [address] [place] [address] PCP - General Family Medicine 01/12/22 11/14/23 Davonte Juan APRN ENVIRONMENTAL DIRECTOR [address] [place] [address] PCP - General Family Medicine 11/15/23 Rose Pelletier, INTERNIST MEDICAL DOCTOR MD Gauge And Weigh Machine Operator 09/19/14 07/10/20 Alek Jones MD [address], [address] [address] Assigned PCP 04/08/19 05/24/20 Alek Jones MD [address] , [address] [address] Assigned PCP 12/25/17 03/31/19 Alexa Simon PA-C [address], [address] [address] Assigned PCP 04/01/19 04/07/19 Alexa Simon PA-C [address] , [address] [address] Assigned PCP 05/25/20 06/07/20 Alek Jones MD [address] , [address] [address] Assigned PCP 06/08/20 02/14/21 [place](Fgs), [address] [phone] [facility] Facility 10/27/20 11/14/20 Alexa Simon PA-C [address] , [address] [address] Assigned PCP 02/15/21 02/28/21 Alek Jones MD [address] , [address] [address] Assigned PCP 03/01/21 07/18/23 Brayden Du MD 909 [facility] [id number] [place] [address] Neurology 05/06/22 Alexa Simon PA-C [address], [address] [address] [place] [address] Assigned PCP 07/19/23 11/17/23 [place] [address] [place] [address] Internal Medicine 11/15/23 Kelsy Matthews [address] [place] [address] Geriatric Services Global Lead 11/15/23 (Fgs), [facility] Senior Apts Asst Living [address] [place] [phone] 11/15/23 Davonte Juan APRN ENVIRONMENTAL DIRECTOR [address] [place] [address] Assigned PCP 11/18/23 documented as of this encounter
--- OUTSIDE RECORDS SUMMARY | 2024-02-03 03:18 | XMS_ITS | Encounter Summary ---
Author Organization [place] Address [address] [place] [address] Care Team Providers Care Boiler Cleaner Name Role Phone Brayden Du MD Unavailable Davonte Juan APRN NONPROFIT MANAGER Primary Care Pr ovider Maya Alfaro MD Unavailable [phone] Kelsy Matthews Unavailable + (Fgs), [facility] shanta Apts Asst Living Unavailable Davonte Juan APRN NONPROFIT MANAGER Unavailable Reason for Visit * Reason Comments Fatigue Encounter Details Date Type Department Care Team (Late st Contact Info) Description 11/18/2023 8:30 AM CDT Assisted Living Visit [facility] Geriatrics [address] [place] [phone] Davonte Juan APRN CNP [address] [place] [address] Left hemiparesis (H) (Primary Dx); Lymphedema; Dermatitis [...] Sex Assigned at Female 02/28/2021 1:24 PM JINRIKSHA DRIVER Legal Sex Female 3:43 AM JINRIKSHA DRIVER Gender Identity Female 02/28/2021 1:23 PM JINRIKSHA DRIVER Sexual Orientation Straight 02/28/2021 1: 20 PM JINRIKSHA DRIVER Occupation Industry Job Start Date Job End [...] encounter Progress Notes * Davonte Juan, LONG NONPROFIT MANAGER - 11/18/2023 8:30 AM CDT Images from the original note were not included. [facility] [place] [facility] of Service where encounter took place: [facility] [[id number]] Chief Complaint Patient presents with Fatigue HPI: Sultana Mueller is a 68 year old (1955), who is being seen today for an episodic care visit. HPI information obtained from: facility chart records, facility staff, patient report, and [place] Epic chart review. Today's concern is: L hemiparesis, lymphedema, dermatitis. S/p CVA 2000. L hemiparesis. Not amb. Does stand/pivot transfer indep. However requires side rail on bed for transfers, repositioning. Requires electric hospital bed for overall height adjustment for transfers. Requires [facility]. Lift chair to assist with transfers [...] aches, and sleep disturbance, EYES: neg, ENT: [place]QU[place], CV: lower extremity edema, RESPIRATORY: dyspnea on [...] and posterior oropharynx normal, moist mucous membranes, [place]LE EYES: EOM, conjunctivae, lids, pupils and irises [...] 1. Cont. Compression stockings 2. Elevated Les-order [facility] lift chair/recliner 3. Cont. Lasix 4. [...] on Sultana Mueller: Gender: female : 1955 [facility] [address] (home) Medical Record: [id number] Social Security Number: [id number] Primary Care Provider: Davonte Juan Insurance: Payor: BCBS / Plan: BCBS MEDICARE ADVANTAGE / Product Type: Medicare / HPI: Sultana Mueller is a 68 year old (1955), who is being seen today for a face to face provider visit at [facility]; medical necessity statement for DME included. This [...] following diagnosis: Left hemiparesis (H) Lymphedema Dermatitis [facility] has a past medical history of Alcohol [...] Dermatitis Orders: 1. Facility staff/TC to contact DME company to get their order form for provider to fill out ELECTRONICALLY SIGNED BY ED CERTIFIED PROVIDER: Davonte Juan APRN CNP [facility] [address] [place] [address] documented in this encounter Plan of Treatment [...] Total Score: 9 02/18/20 21 7:30 AM JINRIKSHA DRIVER documented as of this encounter Care Teams Boiler Cleaner Relationship Specialty Start Date End Date Davonte Juan APRN NONPROFIT MANAGER [address] [place] [address] PCP - General Family Medicine 11/15/23 Brayden Du MD [address] [place] [address] Neurology 05/06/22 Maya Alfaro MD [address] [place] [address] Internal Medicine 11/15/23 Kelsy Matthews [address] [place] [address] Geriatric Services Manager Garden 11/15/23 (Fgs), [facility] Senior Apts Asst Living [address] [place] [phone] 11/15/23 Davonte Juan APRN NONPROFIT MANAGER [address] [place] [address] Assigned PCP 11/18/23 documented as of this encounter
--- OUTSIDE RECORDS SUMMARY | 2024-02-03 03:18 | XMS_ITS | Encounter Summary ---
Author Organization [facility] Address [address] [place] [address] Care Team Providers Care Director Product Safety Name Role Phone Brayden Du MD Unavailable Alexa Simon PA-C Unavailable + [phone] Davonte Juan APRN SUPERVISOR PLATE PASTING Primary Care Pr ovider Maya Alfaro MD Unavailable [phone] Kelsy Matthews Unavailable (Fgs), [facility] Apts Asst Living Unavailable Reason for Referral * Consultation (Routine: Next available opening) - Pending Review Specialty Diagnoses / Procedures Referred By Ela galeana Referred To Contact Endocrinology, Diabetes, and Metabolism Diagnoses Idiopathic postprandial hypoglycemia Davonte Juan APRN SUPERVISOR PLATE PASTING [address] [place] [address] Phone: tel: fax: Referral ID Status Reason Start Date Expiration Date V isits Requested Visits Authorized [id number] Pending Review 11/15/2023 11/14/2024 1 1 Question Answer Reason for Referral: Other My Clinical Question Is: hypoglycemia Scheduling Instructions: [facility] will call you to coordinate your care as prescribed by the provider. If you don? t hear from a construction sales representative within 2 business days, please call [phone]. Additional Information: has BG levels in 50-60s at times, typically following meals. feels shaky, weak with episodes Comments Please be aware that coverage of these services is subject to the terms and limitations of your health insurance plan. Call member services at your health plan with any benefit or coverage questions. [facility] will call you to coordinate your care as prescribed by the provider. If you don? t hear from a construction sales representative within 2 business days, please call [phone]. Reason for Visit * Reason Comments Establish Care Encounter Details Date Type Department Care Team (Late st Contact Info) Description 11/15/2023 8:00 AM CDT Assisted Living Visit [facility] Geriatrics [address] [place] [phone] Davonte Juan APRN SUPERVISOR PLATE PASTING [address] [place] [address] Hypertension, unspecified type (Primary Dx); Lymphedema; Left [...] Sex Assigned at Female 02/28/2021 1:24 PM STONE SETTER METAL OPTICAL FRAMES Legal Sex Female 3:43 AM STONE SETTER METAL OPTICAL FRAMES Gender Identity Female 02/28/2021 1:23 PM STONE SETTER METAL OPTICAL FRAMES Sexual Orientation Straight 02/28/2021 1: 20 PM STONE SETTER METAL OPTICAL FRAMES Occupation Industry Job Start Date Job End [...] APRN CNP - 11/15/2023 8:00 AM CDT [facility] PRIMARY [facility]ARE PROVIDER AND CLINIC: Davonte Juan APRN SUPERVISOR PLATE PASTING, [address] [facility] [address] Chief Complaint Patient presents with [facility] of Service where encounter took place: [facility] (FGS) [[id number]] Sultana Mueller is a 68 year old (1955), admitted to the above facility from TCU.. Admittedto this facility for rehab, medical management, and nursing care. HPI: HPI information obtained from: facility chart records, facility staff, patient report, and [facility] chart review. Brief Summary of [...] Able to stand/pivot transfer indep. Uses electric w[employer]. Chem. Dep. Has h/o etoh use, falls, [...] poor po intake. Updates on Status Since intermediate Admission: mood gen. Stable. Reports headache this [...] and sleep disturbance, EYES: dry eyes, ENT: NEWHALEN, CV: lower extremity edema, RESPIRATORY: neg, : neg, GI: neg, NEURO: headaches, PSYCH: neg, and MUSCULOSKELETAL: muscular weakness Vitals: BP 108/76 Pulse 90 Resp 16 Ht 1.626 m (5' 4) Wt 81.6 kg (180 lb) LMP (LMP Unknown) SpO2 94% BMI 30.90 kg/m?? Exam: GENERAL APPEARANCE: Alert, in no distress, cooperative ENT: Mouth and posterior oropharynx normal, moist mucous membranes, NEWHALEN, adequate dentition EYES: EOM, conjunctivae, lids, pupils [...] apparent anxiety Lab/Diagnostic data: Recent labs in [facility] reviewed by me today. ASSESSMENT/PLAN: (I10) Hypertension, [...] H/o variable po intake Plan: Adult Endocrinology Eyelet Operator Referral 2. Every day BG levels alt times (Z71.89) ACP (advance care planning) Comment: full code Plan: 1. POLST in chart Electronically signed by: Davonte Juan APRN SUPERVISOR PLATE PASTING documented in this encounter Plan of Treatment Scheduled Referrals Name Type Priority Associated Diagnoses Orde r Schedule Adult Endocrinology Eyelet Operator Referral Referral Routine: Next available opening [...] Total Score: 9 02/18/20 21 7:30 AM STONE SETTER METAL OPTICAL FRAMES documented as of this encounter Care Teams Director Product Safety Relationship Specialty Start Date End Date Davonte Juan APRN SUPERVISOR PLATE PASTING [address] [place] [address] PCP - General Family Medicine 11/15/23 Brayden Du MD [address] [facility] [id number] [place] [address] Neurology 05/06/22 Alexa Simon PA-C [address], [address] [place] [address] Assigned PCP 07/19/23 11/17/23 Maya Alfaro MD [address] [place] [address] Internal Medicine 11/15/23 Kelsy Matthews [address] [place] [address] Geriatric Services Sanitation Superintendent 11/15/23 (Fgs), [facility] Senior Apts Asst Living [address] [place] [phone] 11/15/23 documented as of this encounter
--- OUTSIDE RECORDS SUMMARY | 2024-02-03 03:18 | XMS_ITS | Encounter Summary ---
Author Organization [facility] Address [address] [place] [address] Care Team Providers Care Snath Handle Assembler Name Role Phone Alek Jones MD Primary Care Provide r Alek Jones MD Unavailable [phone] [place]([facility]gs), [facility] Unavailable Alexa Simon PA-C Unavailable + [phone] Alek Jones MD Unavailable [phone] Neelima Shukla DO Primary Care Provider [phone] Brayden uD MD Unavailable Alexa Simon PA-C Unavailable + [phone] Davonte Juan APRN PRINCIPAL DATA ARCHITECT Primary Care Pr ovider Maya Alfaro MD Unavailable [phone] Kelsy Matthews Unavailable + (Fgs), [facility] shanta Apt Asst Living Unavailable Davonte Juan APRN PRINCIPAL DATA ARCHITECT Unavailable Encounter Details Date Type Department Care [...] Sex Assigned at Female 02/28/2021 1:24 PM PANEL MACHINE OPERATOR Legal Sex Female 3:43 AM PANEL MACHINE OPERATOR Gender Identity Female 02/28/2021 1:23 PM PANEL MACHINE OPERATOR Sexual Orientation Straight 02/28/2021 1: 20 PM PANEL MACHINE OPERATOR Occupation Industry Job Start Date Job [...] Depression Total Score: 11 021 3:32 PM PANEL MACHINE OPERATOR documented as of this encounter Care Teams Snath Handle Assembler Relationship Specialty Start Date End Date Alek Jones MD [address] [address] PCP - General Family Practice 03/18/16 01/11/22 [place] [address] [place] [address] PCP - General Family Medicine 01/12/22 11/14/23 Davonte Juan APRN CNP [address] [place] [address] PCP - General Family Medicine 11/15/23 Alek Jones MD [address], [id number] [place] [address] Assigned PCP 06/08/20 02/14/21 [place]([facility]gs), [address] [address] Senior Care Facility 10/27/20 11/14/20 Alexa Simon PA-C [address], [address] [place] [address] Assigned PCP 02/15/21 02/28/21 Alke Jones MD [address], [address] [address] Assigned PCP 03/01/21 07/18/23 Brayden Du MD [address] [facility] [id number] [place] [address] Neurology 05/06/22 Alexa Simon PA-C [address] , [address] [address] Assigned PCP 07/19/23 11/17/23 Maya Alfaro MD [address] [place] [address] Internal Medicine 11/15/23 Kelsy Matthews [address] [place] [address] Geriatric Services Butter Production Supervisor 11/15/23 (Fgs), [facility] Senior Apts Asst Living [address] [place] [phone] 11/15/23 Davonte Juan APRN PRINCIPAL DATA ARCHITECT [address] [place] [address] Assigned PCP 11/18/23 documented as of this encounter
--- OUTSIDE RECORDS SUMMARY | 2024-02-03 03:18 | XMS_ITS | Encounter Summary ---
Author Organization [facility] Address [address] [place] [address]. [place] [address] Care Team Providers Care Curb Attendant Name Role Phone Rose Pelletier RESIDENTIAL SOLAR SALES CONSULTANT Unavailable [phone] Alek Jones MD Primary Care Provide r Alek Jones MD Unavailable [phone] Alek Jones MD Unavailable [phone] Alexa Simon PA-C Unavailable + [phone] Alexa Simon PA-C Unavailable + [phone] Alek Jones MD Unavailable [phone] Center(Fgs), [facility] Unavailable Alexa Simon PA-C Unavailable + [phone] Alek Jones MD Unavailable [phone] Neelima Shukla DO Primary Care Provider [phone] Brayden Du MD Unavailable PhoenixAlexa ornelas PA-C Unavailable + [phone] Davonte Juan APRN PEARL PELLER Primary Care Pr ovider + Maya Alfaro MD Unavailable [phone] Kelsy Matthews Unavailable + (Fgs), [facility] shanta Apts Asst Living Unavailable Davonte Juan APRN PEARL PELLER Unavailable Reason for Visit * Reason Comments Medication Refill Encounter Details Date Type Department Care Team (Late st Contact Info) Description 10/11/2016 Refill [facility] [address] [address] [place] [address] Alek Jones MD [address], [address] [place] [address] Medication Refill Social History Tobacco Use Types Packs/Day Years Used Date Smoking Tobacco: Former Smokeless Tobacco: Never Alcohol Use Standard Drinks/Week Comments No 0 (1 standard drink = 0.6 oz pur e alcohol) Comments No Sex and Gender Information Value Date Recorded Sex Assigned at Female 02/28/2021 1:24 PM MACHINE SET UP OPERATOR Legal Sex Female 3:43 AM MACHINE SET UP OPERATOR Gender Identity Female 02/28/2021 1:23 PM MACHINE SET UP OPERATOR Sexual Orientation Straight 02/28/2021 1: 20 PM MACHINE SET UP OPERATOR Occupation Industry Job Start Date Job [...] Pt is due for ov NON fasting Eves [phone] (home) documented in this encounter Plan of [...] Depression Total Score: 13 017 7:16 AM MACHINE SET UP OPERATOR documented as of this encounter Care Teams Curb Attendant Relationship Specialty Start Date End Date Alek Jones MD [address], [address] [place] [address] PCP - General Family Practice 03/18/16 01/11/22 [place] [address] [place] [address] PCP - General Family Medicine 01/12/22 11/14/23 Davonte Juan APRN CNP [address] [place] [address] PCP - General Family Medicine 11/15/23 Rose Pelletier, [facility] Roguer 09/19/14 07/10/20 Alek Jones MD [address] [place] [address] Assigned PCP 04/08/19 05/24/20 Alek Jones MD [address] [address] Assigned PCP 12/25/17 03/31/19 Alexa Simon PA-C [address], [address] [address] Assigned PCP 04/01/19 04/07/19 Alexa Simon PA-C [address] , [address] [address] Assigned PCP 05/25/20 06/07/20 Alek Jones MD [address] , [address] [address] Assigned PCP 06/08/20 02/14/21 [place]), [address] [phone] Senior Care Facility 10/27/20 11/14/20 Alexa Simon PA-C [address] [address] Assigned PCP 02/15/21 02/28/21 Alek Jones MD [address] , [address] [address] Assigned PCP 03/01/21 07/18/23 Brayden Du MD [address] [place] [address] [id number] [place] [address] MD Reynolds 05/06/22 Alexa Simon PA-C [address] , [address] [address] Assigned PCP 07/19/23 11/17/23 [place] [address] [place] [address] Internal Medicine 11/15/23 Kelsy Matthews [address] [place] [address] Geriatric Services Gallery Or Museum Attendant 11/15/23 (Fgs), [facility] Senior Apts Asst Living [address] [place] [phone] 11/15/23 Davonte Juan APRN PEARL PELLER [address] [place] [address] Assigned PCP 11/18/23 documented as of this encounter
--- OUTSIDE RECORDS SUMMARY | 2024-02-03 03:18 | XMS_ITS | Encounter Summary ---
Author Organization [facility] Address [address] [place] [address]. [place] [address] Care Team Providers Care Audio Engineer Name Role Phone Brayden Du MD Unavailable Alexa Simon PAJosé MiguelC Unavailable [phone] Davonte Juan APRN [facility] Primary Care Pr ovider Maya Alfaro MD Unavailable [phone] Kelsy Matthews Unavailable (Fgs), [facility] Apts Asst Living Unavailable Encounter Details [...] Sex Assigned at Female 02/28/2021 1:24 PM COLD MILL OPERATOR Legal Sex Female 3:43 AM COLD MILL OPERATOR Gender Identity Female 02/28/2021 1:23 PM COLD MILL OPERATOR Sexual Orientation Straight 02/28/2021 1: 20 PM COLD MILL OPERATOR Occupation Industry Job Start Date Job [...] Total Score: 9 02/18/20 21 7:30 AM COLD MILL OPERATOR documented as of this encounter Care Teams Audio Engineer Relationship Specialty Start Date End Date Davonte Juan APRN FAMILY PRACTICE DOCTOR [address] [place] [address] PCP - General Family Medicine 11/15/23 Brayden Du MD [address] [facility] [id number] [place] [address] Neurology 05/06/22 Alexa Simon PA-C [address] , [facility] [address] [place] [address] Assigned PCP 07/19/23 11/17/23 Maya Alfaro MD [address] [place] [address] Internal Medicine 11/15/23 Kelsy Matthews [address] [place] [address] Geriatric Services Registered Midwife 11/15/23 (Fgs), [facility]pts Asst Living [address] [place] [phone] 11/15/23 documented as of this encounter
--- OUTSIDE RECORDS SUMMARY | 2024-02-03 03:18 | XMS_ITS | Encounter Summary ---
Author Organization [facility] Address [address] [place] [address] Care Team Providers Care Materials Inspector Name Role Phone Brayden Du MD Unavailable Davonte Juan APRN DIRECTOR RADIO Primary Care Pr ovider Maya Alfaro MD Unavailable [phone] Kelsy Matthews Unavailable + (Fgs), [facility] Apts Asst Living Unavailable Davonte Juan APRN, CNP Unavailable Encounter Details Date Type Department Care Team (Late st Contact Info) Description 12/02/2023 Telephone [facility] Geriatrics [address] [place] [address] Davonte Juan APRN DIRECTOR RADIO [address] [place], [place] [phone] Social History Tobacco Use Types Packs/Day Years [...] Sex Assigned at Female 02/28/2021 1:24 PM RANGE OPERATOR Legal Sex Female 3:43 AM RANGE OPERATOR Gender Identity Female 02/28/2021 1:23 PM RANGE OPERATOR Sexual Orientation Straight 02/28/2021 1: 20 PM RANGE OPERATOR Occupation Industry Job Start Date Job [...] Total Score: 9 02/18/20 21 7:30 AM RANGE OPERATOR documented as of this encounter Care Teams Materials Inspector Relationship Specialty Start Date End Date Davonte Juan APRN DIRECTOR RADIO [address] [place] [address] PCP - General Family Medicine 11/15/23 Brayden Du MD [address] [place] [address] [place] [address] Neurology 05/06/22 Maya Alfaro MD [address] [place] [address] Internal Medicine 11/15/23 Kelsy Matthews [address] [place] [address] Geriatric Services Assistant Printer Floor Covering 11/15/23 (Fgs), [facility] Senior Apts Asst Living [address] [place] [address] 11/15/23 Davonte Juan APRN DIRECTOR RADIO [address] [place] [address] Assigned PCP 11/18/23 documented as of this encounter
--- OUTSIDE RECORDS SUMMARY | 2024-02-03 03:18 | XMS_ITS | Encounter Summary ---
Author Organization [facility] Address [address] [place] [address]. [place] [address] Care Team Providers Care Cleaning Crew Member Name Role Phone Jeramie Sterling MD Primary Care Provider Elodia Rose Oliveira MECHANICAL ASSEMBLY Unavailable [phone] Estela Dacosta PA-C Primary Care Pro vider Kelley Love MD Primary Care Provider [phone] Alek Jones MD Primary Care Provide r Alek Jones MD Unavailable [phone] Alek Jones MD Unavailable [phone] Alexa Simon PA-C Unavailable + [phone] Alexa Simon PA-C Unavailable + [phone] Alek Jones MD Unavailable [phone] [place](Fgs)[facility] Unavailable Alexa Simon PA-C Unavailable + [phone] Alek Jones MD Unavailable [phone] Neelima Shukla DO Primary Care Provider [phone] Brayden Du MD Unavailable Alexa Simon PA-C Unavailable + [phone] Davonte Juan APRN [facility] Primary Care Pr ovider Maya Alfaro MD Unavailable [phone] MatthewsKelsy amaral Unavailable (Fgs), [facility] Unavailable Davonte Juan APRN GUM REMOVER Unavailable Reason for Visit * Reason Comments Medication Refill Encounter Details Date Type Department Care Team (Late st Contact Info) Description 11/12/2014 Refill [facility] [address] [place] [address] [place] [phone] Jeramie Sterling MD XXXX RESIGNED/INACTIVE XXXX Medication Refill Social History Tobacco Use Types Packs/Day Years Used Date Smoking Tobacco: Former Smokeless Tobacco: Never Alcohol Use Standard Drinks/Week Comments No 0 (1 standard drink = 0.6 oz pur e alcohol) Comments No Sex and Gender Information Value Date Recorded Sex Assigned at Female 02/28/2021 1:24 PM CONCESSION ATTENDANT Legal Sex Female 3:43 AM CONCESSION ATTENDANT Gender Identity Female 02/28/2021 1:23 PM CONCESSION ATTENDANT Sexual Orientation Straight 02/28/2021 1: 20 PM CONCESSION ATTENDANT Occupation Industry Job Start Date Job [...] documented as of this encounter Care Teams Cleaning Crew Member Relationship Specialty Start Date End Date Jeramie Sterling MD PCP - General Family Practice 07/24/14 11/09/15 Estela Dacosta PA-C PCP - General Family Practice 11/10/15 12/17/15 Kelley Love MD [address] , [address] [address] PCP - General Family Practice 12/18/15 03/17/16 Alek Jones MD [address] [address] PCP - General Family Practice 03/18/16 01/11/22 [place] [address] [place] [address] PCP - General Family Medicine 01/12/22 11/14/23 Davonte Juan APRN CNP [address] [place] [address] PCP - General Family Medicine 11/15/23 Rose Pelletier, [facility] Linen Aide 09/19/14 07/10/20 Alek Jones MD [address], [address] [address] Assigned PCP 04/08/19 05/24/20 Alek Jones MD [address], [address] [address] Assigned PCP 12/25/17 03/31/19 Alexa Simon PA-C [address] [address] Assigned PCP 04/01/19 04/07/19 Alexa Simon PA-C [address] [address] Assigned PCP 05/25/20 06/07/20 Alek Jones MD [address] [address] Assigned PCP 06/08/20 02/14/21 [place](Fgs), [address] [address] [facility] 10/27/20 11/14/20 Alexa Simon PA-C [address] [address] Assigned PCP 02/15/21 02/28/21 Alek Jones MD [address], [address] [address] Assigned PCP 03/01/21 07/18/23 Brayden Du MD [address] [facility] [id number] [place] [address] MD [place] 05/06/22 Alexa Simon PA-C [address], [address] [place] [address] Assigned PCP 07/19/23 11/17/23 [place] [address] [place] [address] Internal Medicine 11/15/23 Kelsy Matthews [address] [place] [address] Geriatric Services Food Server 11/15/23 (Fgs), [facility] Senior Apts Asst Living [address] [place] [address] 11/15/23 Davonte Juan APRN GUM REMOVER [address] [place] [address] Assigned PCP 11/18/23 documented as of this encounter
--- OUTSIDE RECORDS SUMMARY | 2024-02-03 03:18 | XMS_ITS | Encounter Summary ---
Author Organization [facility] Address [address] [place] [address]. [place] [address] Care Team Providers Care Leasing Manager Name Role Phone Jeramie Sterling MD Primary Care Provider Elodia Rose Oliveira JEWEL SUPERVISOR Unavailable [phone] Estela Dacosta PA-C Primary Care Pro vider Kelley Love MD Primary Care Provider [phone] Alek Jones MD Primary Care Provide r Alek Jones MD Unavailable [phone] Alek Jones MD Unavailable [phone] Alexa Simon PA-C Unavailable + [phone] Alexa Simon PA-C Unavailable + [phone] Alek Jones MD Unavailable +[phone] [place]([facility] Unavailable Alexa Simon PA-C Unavailable + [phone] Alek Jones MD Unavailable [phone] Neelima Shukla DO Primary Care Provider [phone] Brayden Du MD Unavailable Alexa Simon PA-C Unavailable + [phone] Davonte Juan APRN [facility] Primary Care Pr ovider Maya Alfaro MD Unavailable [phone] MatthewsKelsy valentin Unavailable (Fgs), [facility] Living Unavailable Davonte Juan APRN RESIDENTIAL CARE FACILITY MANAGER Unavailable Reason for Visit * Reason Comments Medication Refill Encounter Details Date Type Department Care Team (Late st Contact Info) Description 02/17/2015 Refill [facility] [address] [place] [address] [place] [phone] Jeramie Sterling MD XXXX RESIGNED/INACTIVE XXXX Medication Refill Social History Tobacco Use Types Packs/Day Years Used Date Smoking Tobacco: Former Smokeless Tobacco: Never Alcohol Use Standard Drinks/Week Comments No 0 (1 standard drink = 0.6 oz pur e alcohol) Comments No Sex and Gender Information Value Date Recorded Sex Assigned at Female 02/28/2021 1:24 PM MOTOR HOME ELECTRICAL FOREMAN Legal Sex Female 3:43 AM MOTOR HOME ELECTRICAL FOREMAN Gender Identity Female 02/28/2021 1:23 PM MOTOR HOME ELECTRICAL FOREMAN Sexual Orientation Straight 02/28/2021 1: 20 PM MOTOR HOME ELECTRICAL FOREMAN Occupation Industry Job Start Date Job [...] need to see her? 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 documented as of this encounter Care Teams Leasing Manager Relationship Specialty Start Date End Date Jeramie Sterling MD PCP - General Family Practice 07/24/14 11/09/15 Estela Dacosta PA-C PCP - General Family Practice 11/10/15 12/17/15 Kelley Love MD [address] , [address] [address] PCP - General Family Practice 12/18/15 03/17/16 Alek Jones MD [address], [address] [address] PCP - General Family Practice 03/18/16 01/11/22 [place] [address] [place] [address] PCP - General Family Medicine 01/12/22 11/14/23 Davonte Juan APRN [facility] [address] [place] [address] PCP - General Family Medicine 11/15/23 Rose Pelletier, JEWEL SUPERVISOR Dance Artist 09/19/14 07/10/20 Alek Jones MD [address], [address] [address] Assigned PCP 04/08/19 05/24/20 Alek Jones MD [address] , [address] [address] Assigned PCP 12/25/17 03/31/19 Alexa Simon PA-C [address] , [address] [address] Assigned PCP 04/01/19 04/07/19 Alexa Simon PA-C [address] , [address] [address] Assigned PCP 05/25/20 06/07/20 Alek Jones MD [address], [address] [address] Assigned PCP 06/08/20 02/14/21 [place]), [address] [phone] Residential Facility 10/27/20 11/14/20 Alexa Simon PA-C [address] , [address] [address] Assigned PCP 02/15/21 02/28/21 Alek Jones MD [address] , [address] [address] Assigned PCP 03/01/21 07/18/23 Brayden Du MD [address] [place] [address] [address] Neurology 05/06/22 Alexa Simon PA-C [address], [address] [place] [address] Assigned PCP 07/19/23 11/17/23 Maya Alfaro MD [address] [place] [address] Internal Medicine 11/15/23 Kelsy Matthews [address] [place] [address] Geriatric Services Drywall Professional 11/15/23 (Fgs), [facility] Senior Apts Asst Living [address] [place] [phone] 11/15/23 Davonte Juan APRN RESIDENTIAL CARE FACILITY MANAGER [address] [place] [address] Assigned PCP 11/18/23 documented as of this encounter
--- OUTSIDE RECORDS SUMMARY | 2024-02-03 03:18 | XMS_ITS | Encounter Summary ---
Author Organization [facility] Address [address] [place] [address]. [place] [address] Care Team Providers Care Teletype Technician Name Role Phone Brayden Du MD Unavailable Alexa Simon PANamrata Unavailable [phone] Davonte Juan APRN [facility] Primary Care Pr ovider Maya Alfaro MD Unavailable [phone] Kelsy Matthews Unavailable (Fgs), [facility] [place] Apts Asst Living Unavailable Reason for Visit * Reason Comments Geriatrics Tracker Encounter Details Date Type Department Care Team (Late st Contact Info) Description 11/15/2023 Documentation Only [facility] Geriatrics [address] [place] [phone] Kelsy Matthews [address] [place] [phone] Geriatrics Tracker Social History Tobacco Use Types [...] Assigned at Female 02/28/2021 1:24 PM HORTICULTURAL MANAGER Legal Sex Female 3:43 AM HORTICULTURAL MANAGER Gender Identity Female 02/28/2021 1:23 PM HORTICULTURAL MANAGER Sexual Orientation Straight 02/28/2021 1: 20 PM HORTICULTURAL MANAGER Occupation Industry Job Start Date Job [...] Score: 9 02/18/20 21 7:30 AM HORTICULTURAL MANAGER documented as of this encounter Care Teams Teletype Technician Relationship Specialty Start Date End Date Davonte Juan APRN MACHINE SETTER SUPERVISOR [address] [place] [address] PCP - General Family Medicine 11/15/23 Brayden Du MD 9 [facility]121[place] [address] Neurology 05/06/22 Alexa Simon PA-C [facility] 140[facility] 100 [place] [address] Assigned PCP 07/19/23 11/17/23 Maya Alfaro MD [address] [place] [address] Internal Medicine 11/15/23 Kelsy Matthews [address] [place] [address] Geriatric Services Freight Broker 11/15/23 (Fgs), [facility] Senior Apts Asst Living [address] [place] [address] 11/15/23 documented as of this encounter
--- OUTSIDE RECORDS SUMMARY | 2024-02-03 03:18 | XMS_ITS | Encounter Summary ---
Author Organization [facility] Address [address] [place] [address]. [place] [address] Care Team Providers Care Supervisor Toy Assembly Name Role Phone Brayden Du MD Unavailable Alexa Simon PA-C Unavailable [phone]- [phone] Davonte Juan APRN [facility] Primary Care Pr ovider Maya Alfaro MD Unavailable [phone] Kelsy Matthews Unavailable (Fgs), [facility] Apts Asst Living Unavailable Reason for Visit * Reason Onset Date Comments Refill Request 11/17/2023 Encounter Details Date Type Department Care Team (Late st Contact Info) Description 11/17/2023 Refill [facility] Geriatrics [address] [place] [phone] Ritu Dennis, RN Refill Request Social History [...] Sex Assigned at Female 02/28/2021 1:24 PM PATIENT SUPPORT TECH Legal Sex Female 3:43 AM PATIENT SUPPORT TECH Gender Identity Female 02/28/2021 1:23 PM PATIENT SUPPORT TECH Sexual Orientation Straight 02/28/2021 1: 20 PM PATIENT SUPPORT TECH Occupation Industry Job Start Date Job End [...] Total Score: 9 02/18/20 21 7:30 AM PATIENT SUPPORT TECH documented as of this encounter Care Teams Supervisor Toy Assembly Relationship Specialty Start Date End Date Davonte Juan APRN GUARD CAPTAIN [address] [place] [address] PCP - General Family Medicine 11/15/23 Brayden Du MD 909 [facility]121[place] [address] Neurology 05/06/22 Alexa Simon PA-C [address] , [facility] 100 [place] [address] Assigned PCP 07/19/23 11/17/23 Maya Alfaro MD [address] [place] [address] Internal Medicine 11/15/23 Kelsy Matthews [address] [place] [address] Geriatric Services Fuel Agent 11/15/23 (Fgs), [facility] Senior Apts Asst Living [address] [place] [phone] 11/15/23 documented as of this encounter
--- OUTSIDE RECORDS SUMMARY | 2024-02-03 03:18 | XMS_ITS | Encounter Summary ---
Author Organization [facility] Address [address] [place] [address]. [place] [address] Care Team Providers Care Tube Heater Name Role Phone Brayden Du MD Unavailable Davonte Juan APRN FIRST AID TEACHER Primary Care Pr ovider Maya Alfaro MD Unavailable [phone] Kelsy Matthews Unavailable + (Fgs), [facility] shanta Apts Asst Living Unavailable Davonte Juan APRN FIRST AID TEACHER Unavailable Reason for Visit * Reason Onset Date Comments Dysuria 11/23/2023 Encounter Details Date Type Department Care Team (Late st Contact Info) Description 11/23/2023 Telephone [facility] Geriatrics [address] [place] [address] Katie Chicas, RN Dysuria Social History Tobacco [...] Sex Assigned at Female 02/28/2021 1:24 PM AIR LIFT OPERATOR Legal Sex Female 3:43 AM AIR LIFT OPERATOR Gender Identity Female 02/28/2021 1:23 PM AIR LIFT OPERATOR Sexual Orientation Straight 02/28/2021 1: 20 PM AIR LIFT OPERATOR Occupation Industry Job Start Date Job End Date Not on file Not on file Not on file Not on file documented as of this encounter Miscellaneous Notes * Telephone Encounter - Katie Chicas RN - 11/23/2023 12:50 PM CDT [facility] Geriatrics Triage Nurse Telephone Encounter Provider: Davonte Juan APRN CNP Facility: [facility] Facility Type: [place] Caller: Luz Call Back Number: [phone] Allergies: Allergies Allergen Reactions Darvon-N [Propoxyphene Napsylate] [...] Total Score: 9 02/18/20 21 7:30 AM AIR LIFT OPERATOR documented as of this encounter Care Teams Tube Heater Relationship Specialty Start Date End Date Davonte Juan APRN FIRST AID TEACHER [address] [place] [address] PCP - General Family Medicine 11/15/23 Brayden Du MD [address] [place] [address] [place] [address] Neurology 05/06/22 [place] [address] [place] [address] Internal Medicine 11/15/23 Kelsy Matthews [address] [place] [address] Geriatric Services Manager Fixed Income 11/15/23 (Fgs), [facility] Senior Apts Asst Living [address] [place] [phone] 11/15/23 Davonte Juan APRN FIRST AID TEACHER [address] [place] [address] Assigned PCP 11/18/23 documented as of this encounter
--- OUTSIDE RECORDS SUMMARY | 2024-02-03 03:18 | XMS_ITS | Encounter Summary ---
Author Organization [facility] Address [address] [place] [address]. [place] [address] Care Team Providers Care Turpentine Farmer Name Role Phone Rose Pelletier BELLOWS CHARGER ASSEMBLER Unavailable [phone] Alek Jones MD Primary Care Provide r Alek Jones MD Unavailable [phone] Alek Jones MD Unavailable [phone] Alexa Simon PA-C Unavailable + [phone] Alexa Simon PA-C Unavailable + [phone] Alek Jones MD Unavailable [phone] Center(Fgs), [facility] Unavailable Alexa Simon PA-C Unavailable + [phone] Alek Jones MD Unavailable [phone] Neelima Shukla DO Primary Care Provider [phone] Brayden Du MD Unavailable [place]a ornelas PA-C Unavailable + [phone] Davonte Juan APRN DIRECTOR GLOBAL SALES Primary Care Pr ovider + Maya Alfaro MD Unavailable [phone] Kelsy Matthews Unavailable + (Fgs), [facility] shanta Apts Asst Living Unavailable Davonte Juan APRN DIRECTOR GLOBAL SALES Unavailable Encounter Details Date Type Department Care Team (Late st Contact Info) Description 12/19/2017 MyC Medical Advice [facility] Physicians [address] [place] [address] [address] [place] [address] Ana Mueller MA Social History Tobacco Use Types Packs/Day Years Used Date Smoking Tobacco: Former Smokeless Tobacco: Never Alcohol Use Standard Drinks/Week Comments No 0 (1 standard drink = 0.6 oz pur e alcohol) Comments No Sex and Gender Information Value Date Recorded Sex Assigned at Female 02/28/2021 1:24 PM EDUCATION PROFESSIONAL Legal Sex Female 3:43 AM EDUCATION PROFESSIONAL Gender Identity Female 02/28/2021 1:23 PM EDUCATION PROFESSIONAL Sexual Orientation Straight 02/28/2021 1: 20 PM EDUCATION PROFESSIONAL Occupation Industry Job Start Date Job End [...] documented as of this encounter Care Teams Turpentine Farmer Relationship Specialty Start Date End Date Alek Jones MD [address] , [id number] [place] [address] PCP - General Family Practice 03/18/16 01/11/22 [place] [address] [place] [address] PCP - General Family Medicine 01/12/22 11/14/23 Davonte Juan APRN DIRECTOR GLOBAL SALES [address] [place] [address] PCP - General Family Medicine 11/15/23 Rose Pelletier, [facility] Finance Officer 09/19/14 07/10/20 Alek Jones MD [address], [id number] [place] [address] Assigned PCP 04/08/19 05/24/20 Alek Jones MD [address], [address] [address] Assigned PCP 12/25/17 03/31/19 Alexa Simon PA-C [address], [address] [place] [address] Assigned PCP 04/01/19 04/07/19 Alexa Simon PA-C [address], [address] [address] Assigned PCP 05/25/20 06/07/20 Alek Jones MD [address], [address] [address] Assigned PCP 06/08/20 02/14/21 [place](Fgs), [address] [phone] Skilled Nursing Facility 10/27/20 11/14/20 Alexa Simon PA-C [address], [address] [place] [address] Assigned PCP 02/15/21 02/28/21 Alek Jones MD [address], [id number] [place] [address] Assigned PCP 03/01/21 07/18/23 Brayden Du MD [address] [facility] [id number] [place] [address] Neurology 05/06/22 Alexa Simon PA-C [address] 100 [place] [address] Assigned PCP 07/19/23 11/17/23 Maya Alfaro MD [address] [place] [address] Internal Medicine 11/15/23 Kelsy Matthews [address] [place] [address] Geriatric Services Mechanical Detailer 11/15/23 (Fgs), [facility] Senior Apts Asst Living [address] [place] [phone] 11/15/23 Davonte Juan APRN DIRECTOR GLOBAL SALES [address] [place] [address] Assigned PCP 11/18/23 documented as of this encounter
--- OUTSIDE RECORDS SUMMARY | 2024-02-03 03:18 | XMS_ITS | Encounter Summary ---
Author Organization [facility] Address [address] [place] [address]. [place] [address] Care Team Providers Care Medical Representative Name Role Phone Rose Pelletier GEOPHYSICAL ENGINEER Unavailable [phone] Alek Jones MD Primary Care Provide r Alek Jones MD Unavailable [phone] Alek Jones MD Unavailable [phone] Alexa Simon PA-C Unavailable + [phone] Alexa Simon PA-C Unavailable + [phone] Alek Jones MD Unavailable [phone] Center(Fgs), [facility] Unavailable Alexa Simon PA-C Unavailable + [phone] Alek Jones MD Unavailable [phone] Neelima Shukla DO Primary Care Provider [phone] Brayden Du MD Unavailable Middle BassAlexa ornelas PA-C Unavailable + [phone] Davonte Juan APRN SUPERVISOR COIN MACHINE Primary Care Pr ovider + Maya Alfaro MD Unavailable [phone] Kelsy Matthews Unavailable + (Fgs), [facility] shanta Apts Asst Living Unavailable Davonte Juan APRN SUPERVISOR COIN MACHINE Unavailable Encounter Details Date Type Department Care Team (Late st Contact Info) Description 11/10/2016 MyC Medical Advice [facility] Physicians [address] [place] [address] [address] [place] [address] Ana Mueller MA Social History Tobacco Use Types Packs/Day Years Used Date Smoking Tobacco: Former Smokeless Tobacco: Never Alcohol Use Standard Drinks/Week Comments No 0 (1 standard drink = 0.6 oz pur e alcohol) Comments No Sex and Gender Information Value Date Recorded Sex Assigned at Female 02/28/2021 1:24 PM LAMINATION TECHNICIAN Legal Sex Female 3:43 AM LAMINATION TECHNICIAN Gender Identity Female 02/28/2021 1:23 PM LAMINATION TECHNICIAN Sexual Orientation Straight 02/28/2021 1: 20 PM LAMINATION TECHNICIAN Occupation Industry Job Start Date Job End [...] Depression Total Score: 13 017 7:16 AM LAMINATION TECHNICIAN documented as of this encounter Care Teams Medical Representative Relationship Specialty Start Date End Date Alek Jones MD [address] , [address]127 [place] [address] PCP - General Family Practice 03/18/16 01/11/22 [place] [address] [place] [address] PCP - General Family Medicine 01/12/22 11/14/23 Davonte Juan APRN SUPERVISOR COIN MACHINE [address] [place] [address] PCP - General Family Medicine 11/15/23 Rose Pelletier, [facility] Inspector Watch Train 09/19/14 07/10/20 Alek Jones MD [address], [id number] [place] [address] Assigned PCP 04/08/19 05/24/20 Alek Jones MD [address], [address] [address] Assigned PCP 12/25/17 03/31/19 Alexa Simon PA-C [address], [address] [place] [address] Assigned PCP 04/01/19 04/07/19 Alexa Simon PA-C [address], [address] [address] Assigned PCP 05/25/20 06/07/20 Alek Jones MD [address], [address] [address] Assigned PCP 06/08/20 02/14/21 [place](Fgs), [address] [phone] [facility] 10/27/20 11/14/20 Alexa Simon PA-C [address], [address] [place] [address] Assigned PCP 02/15/21 02/28/21 Alek Jones MD [address], [id number] [place] [address] Assigned PCP 03/01/21 07/18/23 Brayden Du MD 909 [facility] [id number] [place] [address] Neurology 05/06/22 Alexa Simon PA-C [address] 100 [place] [address] Assigned PCP 07/19/23 11/17/23 Maya Alfaro MD [address] [place] [address] Internal Medicine 11/15/23 Kelsy Matthews [address] [place] [address] Geriatric Services Rider Ticket Worker 11/15/23 (Fgs), [facility] Senior Apts Asst Living [address] [place] [phone] 11/15/23 Davonte Juan APRN SUPERVISOR COIN MACHINE [address] [place] [address] Assigned PCP 11/18/23 documented as of this encounter
--- OUTSIDE RECORDS SUMMARY | 2024-02-03 03:18 | XMS_ITS | Encounter Summary ---
Author Organization [facility] Address [address] [place] [address] Care Team Providers Care Clinical Consultant Name Role Phone Brayden Du MD Unavailable Davonte Juan APRN ANIMAL SHELTER SUPERVISOR Primary Care Pr ovider Maya Alfaro MD Unavailable [phone] Kelsy Matthews Unavailable + (Fgs), [facility] shanta Apts Asst Living Unavailable Davonte Juan APRN ANIMAL SHELTER SUPERVISOR Unavailable Reason for Visit * Reason Comments Edema Encounter Details Date Type Department Care Team (Late st Contact Info) Description 12/06/2023 8:30 AM CDT Assisted Living Visit [facility] Geriatrics [address] [place] [phone] Davonte Juan APRN CNP [address] [place] [address] Lymphedema (Primary Dx); Hypertension, unspecified type; Primary [...] Sex Assigned at Female 02/28/2021 1:24 PM INVENTORY CONTROLLER Legal Sex Female 3:43 AM INVENTORY CONTROLLER Gender Identity Female 02/28/2021 1:23 PM INVENTORY CONTROLLER Sexual Orientation Straight 02/28/2021 1: 20 PM INVENTORY CONTROLLER Occupation Industry Job Start Date Job End [...] encounter Progress Notes * Davonte Juan, LONG ANIMAL SHELTER SUPERVISOR - 12/06/2023 8:30 AM CDT [facility] [[id number][facility] Chief Complaint Patient presents with Edema HPI: Sultana Mueller is a 68 year old (1955), who is being seen today for an episodic care visit. HPI information obtained from: facility chart records, facility staff, patient report, and [facility] Epic chart review. Today's concern is: Lymphedema, HTN, [...] and posterior oropharynx normal, moist mucous membranes, [place] EYES: EOM, conjunctivae, lids, pupils and irises [...] med Electronically signed by: Davonte Juan APRN ANIMAL SHELTER SUPERVISOR documented in this encounter Plan of [...] Total Score: 9 02/18/20 21 7:30 AM INVENTORY CONTROLLER documented as of this encounter Care Teams Clinical Consultant Relationship Specialty Start Date End Date Davonte Juan APRN ANIMAL SHELTER SUPERVISOR [address] [place] [address] PCP - General Family Medicine 11/15/23 Brayden Du MD [address] [place] [address] [address] Neurology 05/06/22 Maya Alfaro MD 1700 [place] [address] Internal Medicine 11/15/23 Kelsy Matthews 1700 [place] [address] Geriatric Services Explosive Specialist 11/15/23 (Fgs), [facility] Senior Apts Asst Living [address] [place] [address] 11/15/23 Davonte Juan APRN ANIMAL SHELTER SUPERVISOR [address] [place] [address] Assigned PCP 11/18/23 documented as of this encounter
--- OUTSIDE RECORDS SUMMARY | 2024-02-03 03:18 | XMS_ITS | Encounter Summary ---
Author Organization [facility] Address [address] [place] [address] Care Team Providers Care Loss Control Manager Name Role Phone Brayden Du MD Unavailable Davonte Juan APRN SHARED SERVICES MANAGER Primary Care Pr ovider Maya Alfaro MD Unavailable [phone] Kelsy Matthews Unavailable + (Fgs), [facility] shanta Apts Asst Living Unavailable Davonte Juan APRN SHARED SERVICES MANAGER Unavailable Encounter Details Date Type Department Care Team (Late st Contact Info) Description 12/01/2023 [facility] Geriatrics [address] [place] [address] Davonte Juan APRN CNP [address] [place], [place] [id number] DIAGNOSIS NOT YET DEFINED (Primary Dx) Social [...] Sex Assigned at Female 02/28/2021 1:24 PM SAND MILL OPERATOR CORE SAND Legal Sex Female 3:43 AM SAND MILL OPERATOR CORE SAND Gender Identity Female 02/28/2021 1:23 PM SAND MILL OPERATOR CORE SAND Sexual Orientation Straight 02/28/2021 1: 20 PM SAND MILL OPERATOR CORE SAND Occupation Industry Job Start Date Job End Date Not on file Not on file Not on file Not on file documented as of this encounter Plan of Treatment Not on file documented as of this encounter Procedures Procedure Name Priority Date/Time Associated Diagnosis Comments IN MD CERTIFICATION BLEND PLANT OPERATOR PATIENT Routine 12/01/2023 DIAGNOSIS NOT YET DEFINED documented in this encounter Results * MD CERTIFICATION BLEND PLANT OPERATOR PATIENT (12/01/2023) Davonte Juan APRN, CNP SPECIAL REPORTS Final Result documented in this encounter Visit Diagnoses Diagnosis DIAGNOSIS NOT YET DEFINED- Primary documented in this encounter Additional Health Concerns 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 Assessment Noted Time PHQ-9 Depression Total Score: 9 02/18/20 21 7:30 AM SAND MILL OPERATOR CORE SAND documented as of this encounter Care Teams Loss Control Manager Relationship Specialty Start Date End Date Davonte Juan APRN CNP [address] [place] [address] PCP - General Family Medicine 11/15/23 Brayden Du MD [address] [place] [address] [id number] [place] [address] Neurology 05/06/22 Maya Alfaro MD [address] [place] [address] Internal Medicine 11/15/23 Kelsy Matthews [address] [place] [address] Geriatric Services Concrete Inspector 11/15/23 (Fgs), [facility] Senior Apts Asst Living [address] [place] [phone] 11/15/23 Davonte Juan APRN SHARED SERVICES MANAGER [address] [place] [address] Assigned PCP 11/18/23 documented as of this encounter
--- OUTSIDE RECORDS SUMMARY | 2024-02-03 03:18 | XMS_ITS | Encounter Summary ---
Author Organization [facility] Address [address] [place] [address]. [place] [address] Care Team Providers Care Test Lead Name Role Phone Brayden Du MD Unavailable Alexa Simon PA-C Unavailable [phone] Davonte Juan APRN [facility] Primary Care Pr ovider Maya Alfaro MD Unavailable [phone] Kelsy Matthews Unavailable (Fgs), [facility] Unavailable Reason for Visit * Reason Onset Date Comments Refill Request 11/17/2023 Encounter Details Date Type Department Care Team (Late st Contact Info) Description 11/17/2023 Refill [facility] [address] [place] [phone] Ritu Dennis, RN Refill Request Social History [...] Sex Assigned at Female 02/28/2021 1:24 PM MAGNETIZER Legal Sex Female 3:43 AM MAGNETIZER Gender Identity Female 02/28/2021 1:23 PM MAGNETIZER Sexual Orientation Straight 02/28/2021 1: 20 PM MAGNETIZER Occupation Industry Job Start Date Job End [...] Total Score: 9 02/18/20 21 7:30 AM MAGNETIZER documented as of this encounter Care Teams Test Lead Relationship Specialty Start Date End Date Davonte Juan APRN [employer] [address] [place] [id number] PCP - General Family Medicine 11/15/23 Brayden Du MD [address] [id number] [place] [address] Neurology 05/06/22 Alexa Simon PA-C [address] , [facility] [address] [place] [address] Assigned PCP 07/19/23 11/17/23 Maya Alfaro MD [address] [place] [id number] Internal Medicine 11/15/23 Kelsy Matthews [address] [place] [address] Geriatric Services Hydrology Technician 11/15/23 (Fgs), [facility] [address] [place] [phone] 11/15/23 documented as of this encounter
== END 2024-01-16 20:45 | disposition home or self-care (01) ==
LOC: AMB 02-03 03:13
PROVIDERS: PCP Family Medicine; Visit Provider Family Medicine
DX: F10.920 Alcohol use, unspecified with intoxication, uncomplicated (principal); S00.83XA Contusion of other part of head, initial encounter
CPT/HCPCS: A0425; A0428